=== PATIENT | female | born 1950 | race Caucasian/White ===

== ENCOUNTER 2016-06-12 14:51 | Inpatient (IN) | payer MEDICARE, OTHER ==
--- NOTE | 2016-06-12 15:22 | ED ---
General Adult HPI - General Chief complaint: Shortness of Breath Stated complaint: BLANK Time Seen by Provider: 06/12/16 14:53 Source: patient, EMS, RN notes reviewed, old records reviewed Mode of arrival: EMS - History of Present Illness Initial comments: This is a 65-year-old female ER for evaluation. Patient comes in here for evaluation of shortness of breath, patient is a gainfully short of breath and doesn't with multiple medical comorbidities, coming approximately care facility for essentially failed outpatient treatment of multiple infections. On top of these infections patient does have significant difficulties with breathing including CHF COPD, patient states she has shortness of breath at this time - Related Data Home Medications Medication Instructions Recorded Confirmed Ascorbic Acid [Vitamin C] 1,000 mg PO DAILY@1200 10/22/13 06/12/16 Aspirin 81 mg PO 10/22/13 06/12/16 Baclofen [Lioresal] 10 mg PO BID 10/22/13 06/12/16 Budesonide-Formot 160-4.5 Mcg 2 puff INHALATION RT-BID 10/22/13 06/12/16 [Symbicort 160-4.5 Mcg Inhaler] Celecoxib [CeleBREX] 200 mg PO QAM 10/22/13 06/12/16 Cetirizine HCl [Zyrtec] 10 mg PO QAM 10/22/13 06/12/16 Furosemide [Lasix] 40 mg PO BID 10/22/13 06/12/16 Montelukast Sodium [Singulair] 10 mg PO QAM 10/22/13 06/12/16 Omeprazole [PriLOSEC] 20 mg PO 10/22/13 06/12/16 Spironolactone [Aldactone] 25 mg PO BID 10/22/13 06/12/16 Cyanocobalamin [Vitamin B-12] 1,000 mcg PO Q48H 10/18/15 06/12/16 Ergocalciferol [Vitamin D2 50,000 unit PO FR 10/18/15 06/12/16 (DRISDOL)] Ferrous Sulfate, Dried [Slow 159 mg PO DAILY@1200 10/18/15 06/12/16 Release Iron] Sennosides [Senna] 17.2 mg PO BID 10/18/15 06/12/16 Albuterol Inhaler [Ventolin Hfa 2 puff INHALATION RT-QID PRN 06/12/16 06/12/16 Inhaler] Aztreonam [Azactam] 1 dose IVPB Q8H 06/12/16 06/12/16 Citalopram Hydrobromide [CeleXA] 10 mg PO QAM 06/12/16 06/12/16 HYDROcodone/APAP 5-325MG [Varnell 1 tab PO Q8H PRN 06/12/16 06/12/16 5-325] metFORMIN HCL [Glucophage] 2,000 mg PO DAILY@199906/12/16 06/12/16 predniSONE 20 mg PO DAILY 06/12/16 06/12/16 Previous Rx's Medication Instructions Recorded Gabapentin [Neurontin] 300 mg PO BID cap 10/27/15 Ipratropium-Albuterol Nebulize 3 ml INHALATION RT-QID ampul.neb 10/27/15 [Duoneb 0.5 mg-3 mg/3 ml Soln] Allergies Allergy/AdvReac Type Severity Reaction Status Date / Time acyclovir Allergy Rash/Hives Verified 06/12/16 16:06 cephalexin [Cephalexin] Allergy Anaphylaxis Verified 06/12/16 16:06 cephalexin monohydrate Allergy Anaphylaxis Verified 06/12/16 16:06 [From Keflex] Cephalosporins Allergy Unknown Verified 06/12/16 15:13 erythromycin base Allergy Unknown Verified 06/12/16 15:13 famciclovir Allergy Rash/Hives Verified 06/12/16 16:06 meropenem [From Merrem] Allergy Anaphylaxis Verified 06/12/16 16:06 nitrofurantoin Allergy Unknown Verified 06/12/16 15:13 [From Macrobid] nitrofurantoin Allergy Unknown Verified 06/12/16 15:13 macrocrystalline [From Macrobid] sulfamethoxazole Allergy Unknown Verified 06/12/16 15:13 [From Bactrim] trimethoprim [From Bactrim] Allergy Unknown Verified 06/12/16 15:13 Review of Systems ROS Statement: Those systems with pertinent positive or pertinent negative responses have been documented in the HPI. ROS Other: All systems not noted in ROS Statement are negative. Past Medical History Past Medical History: Asthma, COPD, Diabetes Mellitus, Fibromyalgia, GERD/Reflux , Hyperlipidemia, Hypertension, Osteoarthritis (OA), Pneumonia Additional Past Medical History / Comment(s): IDC, FREQ UTI. anemia; osteopenia ; parapalegic "R/T SPINAL SURG 2006, AND AMBULANCE INJURY LATER" History of Any Multi-Drug Resistant Organisms: ESBL Date of last positivie culture/infection: 10/18/15 MDRO Source:: Urine-E.coli ESBL Past Surgical History: Adenoidectomy, Back Surgery, Joint Replacement, Orthopedic Surgery, Tonsillectomy Additional Past Surgical History / Comment(s): Neck surgery, ZAY KNEE REPLACEMENT, FUSION T-12 TO L-5 METAL REMOVED, L5 TO S1 - AND REFUSED,KNEE ARTHROSCOPY X3. RT FOOT METATRSAL BROKEN, BIOPSY ON ZAY BREAST-NEG, ZAY CARPAL TUNNEL, LT HAND BASAL. ARTHROSOCPY,UMBILICAL HERNIA, SANTANA 09/2012; LAPROSCOPY,CATARACTS. Past Anesthesia/Blood Transfusion Reactions: Family History of Problems w/ Anesthesia, Postoperative Nausea & Vomiting (PONV) Additional Past Anesthesia/Blood Transfusion Reaction / Comment(s): HAD BLOOD TRANSFUSION IN PAST. SISTER HAD PROB BREATHING AFTER SURG. Past Psychological History: Depression Additional Psychological History / Comment(s): Lives in the family home. She has a visiting physician. Has family members that help her. She is on a bariatric air bed at home. She has a Santana in place and this is her only IV access placements Dr. Dee placement about 2 years ago. Smoking Status: Never smoker Past Alcohol Use History: None Reported Past Drug Use History: None Reported - Past Family History Father Family Medical History: Cancer Additional Family Medical History / Comment(s): LUNG CA - BOTH PARENTS Mother Family Medical History: Cancer General Exam General appearance: alert, anxious, in distress, obese Head exam: Present: atraumatic, normocephalic, normal inspection Eye exam: Present: normal appearance, PERRL, EOMI. Absent: scleral icterus, conjunctival injection, periorbital swelling ENT exam: Present: mucous membranes dry Neck exam: Present: normal inspection. Absent: tenderness, meningismus, lymphadenopathy Respiratory exam: Present: normal lung sounds bilaterally, respiratory distress , wheezes, rales, accessory muscle use, decreased breath sounds, prolonged expiratory. Absent: rhonchi, stridor Cardiovascular Exam: Present: normal rhythm, tachycardia, normal heart sounds. Absent: systolic murmur, diastolic murmur, rubs, gallop, clicks GI/Abdominal exam: Present: soft, normal bowel sounds. Absent: distended, tenderness, guarding, rebound, rigid Extremities exam: Present: normal inspection, full ROM, normal capillary refill. Absent: tenderness, pedal edema, joint swelling, calf tenderness Back exam: Present: normal inspection Neurological exam: Present: alert, oriented X3, CN II-XII intact Psychiatric exam: Present: normal affect, normal mood Skin exam: Present: warm, dry, intact, normal color. Absent: rash Course Vital Signs 06/12/16 06/12/16 06/12/16 14:53 15:03 15:09 Temperature 99.8 F H Pulse Rate 61 142 H Respiratory 20 20 20 Rate Blood Pressure 159/109 211/155 O2 Sat by Pulse 96 95 Oximetry 06/12/16 16:19 Temperature 99.4 F Pulse Rate 138 H Respiratory 20 Rate Blood Pressure 168/71 O2 Sat by Pulse 92 L Oximetry - Reevaluation(s) Reevaluation #1: 06/12/16 16:47 Patient is in mild distress, mild to moderate shortness of breath even after breathing treatment. Reevaluation #2: 06/12/16 16:48 Records thoroughly reviewed EKG Findings - EKG Comments: EKG Findings:: EKG shows sinus tachycardia rate 142, NC 136, QRS 74, QTC 4:15 Medical Decision Making - Medical Decision Making 65 female year with multifactorial shortness of breath and respiratory failure, COPD CHF obesity hypoventilation syndrome as well as pneumonia. Patient be admitted for IV antibiotics, breathing treatments and cardiopulmonary resuscitation as well as hemodynamic monitoring. - Lab Data Result diagrams: 06/12/16 15:30 06/12/16 15:30 Lab Results 06/12/16 06/12/16 06/12/16 Range/Units 15:30 15:30 15:30 WBC 24.7 H (3.8-10.6) k/uL RBC 4.09 (3.80-5.40) m/uL Hgb 12.2 (11.4-16.0) gm/dL Hct 39.1 (34.0-46.0) % MCV 95.6 (80.0-100.0) fL MCH 29.7 (25.0-35.0) pg MCHC 31.1 (31.0-37.0) g/dL RDW 15.7 H (11.5-15.5) % Plt Count 363 (150-450) k/uL Neutrophils % 93 % Lymphocytes % 3 % Monocytes % 3 % Eosinophils % 0 % Basophils % 0 % Neutrophils # 23.0 H (1.3-7.7) k/uL Lymphocytes # 0.7 L (1.0-4.8) k/uL Monocytes # 0.8 (0-1.0) k/uL Eosinophils # 0.0 (0-0.7) k/uL Basophils # 0.0 (0-0.2) k/uL PT (9.0-12.0) sec INR (<1.1) APTT (22.0-30.0) sec Sodium 141 (137-145) mmol/L Potassium 4.7 (3.5-5.1) mmol/L Chloride 98 (98-107) mmol/L Carbon Dioxide 30 (22-30) mmol/L Anion Gap 13 mmol/L BUN 31 H (7-17) mg/dL Creatinine 0.80 (0.52-1.04) mg/dL Est GFR (MDRD) Af Amer >60 (>60 ml/min/1.73 sqM) Est GFR (MDRD) Non-Af >60 (>60 ml/min/1.73 sqM) Glucose 160 H (74-99) mg/dL Calcium 9.7 (8.4-10.2) mg/dL Magnesium 2.1 (1.6-2.3) mg/dL Total Bilirubin 0.5 (0.2-1.3) mg/dL AST 75 H (14-36) U/L ALT 127 H (9-52) U/L Alkaline Phosphatase 125 (38-126) U/L Total Creatine Kinase 30 (30-135) U/L Total Protein 7.4 (6.3-8.2) g/dL Albumin 4.2 (3.5-5.0) g/dL 06/12/16 Range/Units 15:30 WBC (3.8-10.6) k/uL RBC (3.80-5.40) m/uL Hgb (11.4-16.0) gm/dL Hct (34.0-46.0) % MCV (80.0-100.0) fL MCH (25.0-35.0) pg MCHC (31.0-37.0) g/dL RDW (11.5-15.5) % Plt Count (150-450) k/uL Neutrophils % % Lymphocytes % % Monocytes % % Eosinophils % % Basophils % % Neutrophils # (1.3-7.7) k/uL Lymphocytes # (1.0-4.8) k/uL Monocytes # (0-1.0) k/uL Eosinophils # (0-0.7) k/uL Basophils # (0-0.2) k/uL PT 10.9 (9.0-12.0) sec INR 1.1 (<1.1) APTT 23.0 (22.0-30.0) sec Sodium (137-145) mmol/L Potassium (3.5-5.1) mmol/L Chloride (98-107) mmol/L Carbon Dioxide (22-30) mmol/L Anion Gap mmol/L BUN (7-17) mg/dL Creatinine (0.52-1.04) mg/dL Est GFR (MDRD) Af Amer (>60 ml/min/1.73 sqM) Est GFR (MDRD) Non-Af (>60 ml/min/1.73 sqM) Glucose (74-99) mg/dL Calcium (8.4-10.2) mg/dL Magnesium (1.6-2.3) mg/dL Total Bilirubin (0.2-1.3) mg/dL AST (14-36) U/L ALT (9-52) U/L Alkaline Phosphatase (38-126) U/L Total Creatine Kinase (30-135) U/L Total Protein (6.3-8.2) g/dL Albumin (3.5-5.0) g/dL - Radiology Data Radiology results: report reviewed (Chest x-ray shows bop positive bilateral pneumonia), image reviewed Critical Care Time Critical Care Time: Yes Total Critical Care Time: 31 Disposition Clinical Impression: Urinary tract infection, Acute respiratory failure, CHF (congestive heart failure), Acute exacerbation of chronic obstructive airways disease, Bilateral pneumonia Disposition: ADMITTED IP TO THIS [facility] Condition: Serious Referrals: Raymond Andrade MD [Primary Care Provider] - 1-2 days
[2016-06-12] MEDS ORDERED: SODIUM CHLORIDE 0.9% 1,000 ML IV STA ×2 (15:31→16:16)
--- NOTE | 2016-06-12 16:01 | XR ---
EXAMINATION TYPE: XR chest 1V portable DATE OF EXAM: 06/12/2016 3:55 PM COMPARISON: Prior chest x-ray 27 October 2015 HISTORY: Shortness of breath and asthma TECHNIQUE: Single frontal view of the chest is obtained. FINDINGS: No significant interval change. Postop change noted at the lower cervical spine. Patient i s rotated and there are overlying cardiac leads. Heart is enlarged, mediastinum is widened. Right jug ular central venous catheter shows the distal tip overlying the superior vena cava. Difficult to excl ude some basilar airspace disease. No evident pneumothorax, or pleural effusion. IMPRESSION: Correlate for possible basilar pneumonia or atelectasis, follow-up PA and lateral chest x-ray may be of benefit. Cardiomegaly. Difficult to exclude mediastinal adenopathy.
[2016-06-12 16:25] LABS: Basophils % (A) 0 %; CH 30.2; CHCM 31.7; Eosinophils % (A) 0 %; HCT 39.1 % (34.0-46.0); HGB 12.2 gm/dL (11.4-16.0); Luc # (Auto) 0.18; Luc % (Auto) 1; Lymphocytes # (A) 0.7 k/uL (1.0-4.8); Lymphocytes % (A) 3 %; MCH 29.7 pg (25.0-35.0); MCHC 31.1 g/dL (31.0-37.0); MCV 95.6 fL (80.0-100.0); Monocytes # (A) 0.8 k/uL (0-1.0); Monocytes % (A) 3 %; Neutrophils % (A) 93 %; RBC 4.09 m/uL (3.80-5.40); RDW 15.7 % (11.5-15.5); WBC 24.7 k/uL (3.8-10.6); WBC (Perox) 25.16
[2016-06-12] MEDS ORDERED: LORazepam 2 MG/ML SYRINGE IV STA (16:28)
[2016-06-12] MEDS ORDERED: IPRATROPIUM-ALBUTEROL 3 ML NEB INHALATION STA (16:28)
[2016-06-12 16:29] LABS: INR 1.1 (<1.1); Prothrombin Time 10.9 sec (9.0-12.0)
[2016-06-12 16:36] LABS: ALT 127 U/L (9-52); AST 75 U/L (14-36); Alkaline Phosphatase 125 U/L (38-126); Anion Gap 13 mmol/L; Blood Urea Nitrogen 31 mg/dL (7-17); Calcium 9.7 mg/dL (8.4-10.2); Carbon Dioxide 30 mmol/L (22-30); Chloride 98 mmol/L (98-107); Glucose 160 mg/dL (74-99); Magnesium 2.1 mg/dL (1.6-2.3); Non-African American GFR(MDRD) >60 (>60 ml/min/1.73 sqM); Potassium 4.7 mmol/L (3.5-5.1); Sodium 141 mmol/L (137-145); Total Bilirubin 0.5 mg/dL (0.2-1.3); Total Protein 7.4 g/dL (6.3-8.2)
[2016-06-12 16:40] LABS: Creatine Kinase 30 U/L (30-135)
[2016-06-12] MEDS ORDERED: PIPERACILLIN-TAZOBACTAM 3.375 GM in DEXTROSE/WATER 1 50ML.BAG IVPB STA (16:44)
[2016-06-12] MEDS ORDERED: SODIUM CHLORIDE 0.9% 1,000 ML IV SCH (16:45)
[2016-06-12] MEDS ORDERED: PNEUMONIA PROTOCOL UTILIZED 1 EACH MISC PO PRN (16:45)
[2016-06-12] MEDS ORDERED: LEVOFLOXACIN 750MG-D5W PMX 750 MG in DEXTROSE/WATER 1 150ML.BAG IVPB STA (16:45)
[2016-06-12 16:53] LABS: Creatine Kinase MB 0.7 ng/mL (0.0-2.4); Troponin I <0.012 ng/mL (0.000-0.034)
[2016-06-12] MEDS ORDERED: KETOROLAC 30 MG/ML 1 ML VIAL IVP STA (17:14)
[2016-06-12] MEDS ORDERED: ACETAMINOPHEN IV (For NPO) 1,000 MG in EMPTY BAG 1 BAG IVPB STA (17:14)
[2016-06-12] MEDS ORDERED: SODIUM CHLORIDE 0.9% 1,000 ML IV ONE (17:18)
[2016-06-12 19:39] LABS: Amorphous Sediment,Urine Rare /hpf; Appearance,Urine Cloudy (Clear); Bilirubin,Urine Negative (Negative); Glucose,Urine (UA) Negative (Negative); Ketones,Urine Negative (Negative); Leukocyte Esterase,Urine Large (Negative); Mucus,Urine Few /hpf; Nitrite,Urine Negative (Negative); Particle Count 15502; Protein,Urine Negative (Negative); RBC,Urine 81 /hpf (0-5); Squamous Epithelial Cell,Urine 1 /hpf (0-4); UA Billing (MACRO vs. MICRO) MICRO; Urobilinogen,Urine <2.0 mg/dL (<2.0); WBC,Urine 84 /hpf (0-5)
[2016-06-12] MEDS: IPRATROPIUM-ALBUTEROL 3 ML NEB INHALATION SCH (19:44)
[2016-06-12] MEDS: FUROSEMIDE 10 MG/ML 4 ML VIAL IV STA ×2 (20:20→21:05)
[2016-06-12 20:47] LABS: Glucose,Whole Blood 144 mg/dL (75-99)
[2016-06-12] MEDS ORDERED: NALOXONE 0.4 MG/ML 1 ML VIAL IV PRN (22:45)
[2016-06-12] MEDS ORDERED: IV VANCOMYCIN PER PHARMACY 1 EACH MISC MISCELLANE PRN (22:51)
[2016-06-12] MEDS ORDERED: ACETAMINOPHEN IV (For NPO) 1,000 MG in EMPTY BAG 1 BAG IVPB ONE (23:29)
[2016-06-13] MEDS: PIPERACILLIN-TAZOBACTAM 3.375 GM in DEXTROSE/WATER 1 50ML.BAG IVPB SCH ×3 (03:04→19:35)
[2016-06-13 04:38] LABS: Basophils # (A) 0.1 k/uL (0-0.2); Basophils % (A) 0 %; CH 30.1; CHCM 30.5; Eosinophils % (A) 0 %; HCT 33.3 % (34.0-46.0); HDW 2.46; HGB 10.4 gm/dL (11.4-16.0); Hypochromasia Moderate; Luc # (Auto) 0.16; Luc % (Auto) 1; Lymphocytes % (A) 9 %; MCH 30.8 pg (25.0-35.0); MCHC 31.1 g/dL (31.0-37.0); MCV 99.2 fL (80.0-100.0); Macrocytosis Slight; Mean Platelet Volume 7.4; Monocytes # (A) 0.7 k/uL (0-1.0); Monocytes % (A) 3 %; Neutrophils # (A) 19.4 k/uL (1.3-7.7); Neutrophils % (A) 87 %; RBC 3.36 m/uL (3.80-5.40); RDW 15.7 % (11.5-15.5); WBC 22.3 k/uL (3.8-10.6); WBC (Perox) 23.36
[2016-06-13 04:56] LABS: Anion Gap 12 mmol/L; Blood Urea Nitrogen 38 mg/dL (7-17); Calcium 8.5 mg/dL (8.4-10.2); Carbon Dioxide 28 mmol/L (22-30); Chloride 99 mmol/L (98-107); Glucose 120 mg/dL (74-99); Magnesium 2.3 mg/dL (1.6-2.3); Non-African American GFR(MDRD) 56 (>60 ml/min/1.73 sqM); Phosphorous 3.9 mg/dL (2.5-4.5); Potassium 4.5 mmol/L (3.5-5.1); Sodium 139 mmol/L (137-145)
[2016-06-13] MEDS: ALPRAZolam 0.25 MG TAB PO PRN ×3 (06:38→22:59)
[2016-06-13 07:25] LABS: Glucose,Whole Blood 108 mg/dL (75-99)
--- NOTE | 2016-06-13 07:27 | HP ---
DATE OF ADMISSION: 06/12/2016 PRESENTING COMPLAINT: Short of breath, wheezing. HISTORY OF PRESENTING COMPLAINT: This is a 65-year-old patient of visiting physician, Dr. Andrade. The patient's chronic stable medical conditions include diabetes mellitus type 2, fibromyalgia, GERD, hyperlipidemia, hypertension, osteoarthritis, pneumonia. Patient has a chronic indwelling, osteopenia. Patient had spinal surgery in 2006 and subsequently had paraplegia. Patient presents with over a week of increasing short of breath, cough, nonproductive, congestion in the chest. Patient was given prednisone and aztreonam by her visiting physician, did not get better and then decided to come in. Also had ( ) fever, weak, tired, decreased appetite. REVIEW OF SYSTEMS: CONSTITUTIONAL: Weak tired. HEENT: None. RESPIRATORY: As above. CARDIOVASCULAR: None. GASTROINTESTINAL: Heartburn. GENITOURINARY: Chronic Stallings catheter. DERMATOLOGICAL: None. HEMATOLOGICAL: None. LYMPHATIC: None. PSYCHIATRY: None. NEUROLOGICAL: Paraplegia. Past medical history of asthma, diabetes mellitus type 2, fibromyalgia, GERD, hyperlipidemia, hypertension, osteoarthritis, indwelling catheter, osteopenia, paraplegia following spinal surgery. PAST SURGICAL HISTORY: Adenoidectomy, back surgery, joint replacement, tonsillectomy, neck surgery, bilateral knee replacement, fusion T12 to L5 and L5 to S1, right foot metatarsal broke, bilateral carpal tunnel surgery, left hand basal arthroscopy, umbilical hernia repair. SOCIAL HISTORY: The patient lives by herself. She has help that comes in daily. No smoking or alcohol. FAMILY HISTORY: Both the parents had lung cancer. HOME MEDICATIONS: 1. Azactam 2 grams IV piggyback q.8. 2. Prednisone 20 mg a day. 3. Ventolin 2 puffs q.i.d. p.r.n. 4. DuoNeb q.i.d. 5. Ferrous sulfate. 6. Celebrex 200 mg p.o. daily. 7. Symbicort 160/4.5 two puffs b.i.d. 8. Aldactone 25 mg b.i.d. 9. Senna 17.2 mg p.o. b.i.d. 10. Lasix 40 mg b.i.d. 11. Vitamin D2, 50,000 units on Fridays. 12. Aspirin 81 mg p.o. q.h.s. 13. [place] 5 one tablet q.8 p.r.n. 14. Baclofen 10 mg p.o. b.i.d. 15. Vitamin C 1000 mg p.o. daily. 16. Prilosec 20 mg p.o. q.h.s. 17. Vitamin B12, 1000 mcg p.o. q.48 hours. 18. Zyrtec 10 mg p.o. in the morning. 19. Singulair 10 mg p.o. daily. 20. Celexa 10 mg p.o. daily. 21. Glucophage 2000 mg p.o. daily at 8 p.m. 22. Neurontin 300 mg p.o. b.i.d. Allergies include acyclovir KEFLEX, CEPHALOSPORIN, ERYTHROMYCIN, MEROPENEM, NITROFURANTOIN, BACTRIM. ON EXAMINATION: VITAL SIGNS ON PRESENTATION: Temperature 99.8, pulse up to 142, respiration 20, blood pressure 168/71, pulse ox 92% on 2 L. GENERAL APPEARANCE: Morbidly obese, BMI 61.3, sitting up, short of breath. EYES: Pupils equal. Conjunctivae normal. HEENT: External appearance of nose and ears normal. Oral cavity normal. NECK: Short thick. JVD unable to assess. RESPIRATORY: Effort increased. LUNGS: Expiratory crackles. CARDIOVASCULAR: First and second sounds normal. No edema. ABDOMEN: Distended, soft. Liver and spleen not palpable. LYMPHATIC: No lymph node palpable in neck or axillae. PSYCHIATRY: Alert and oriented x3. Mood and affect normal. NEUROLOGICAL: Pupils equal. Cranial nerves grossly intact. ( ) lower extremities. INVESTIGATIONS: White count 24.7, hemoglobin 12.2. Potassium 4.7. UA positive for leukocyte esterase, WBC. Chest x-ray possibly pneumonia. ASSESSMENT: 1. Bilateral basal pneumonia, suspect gram-negative organism having failed outpatient treatment. 2. Morbid obesity, body mass index 61.3. 3. Paraplegia from failed spinal surgery 4. Diabetes mellitus type 2, on oral hypoglycemics. 5. Chronic fibromyalgia. 6. Gastroesophageal reflux disease. 7. Hyperlipidemia. 8. Essential hypertension. 9. Primary osteoarthritis multiple joints bilateral. 10. Chronic urinary incontinence. The patient has got a chronic Stallings catheter. 11. Stallings catheter causing urinary tract infection PLAN: Patient to continue Levaquin and Zosyn. Home medications are resumed. Consultations to ID and Pulmonary is being done. Care was discussed with the patient.
[2016-06-13] MEDS: IPRATROPIUM-ALBUTEROL 3 ML NEB INHALATION SCH ×4 (08:45→19:11)
[2016-06-13] MEDS: PANTOPRAZOLE 40 MG TABLET PO SCH (09:00)
--- NOTE | 2016-06-13 09:08 | XR ---
EXAMINATION TYPE: XR chest 1V DATE OF EXAM: 06/13/2016 6:35 AM COMPARISON: 06/12/2016 HISTORY: Shortness of breath TECHNIQUE: Single frontal view of the chest is obtained. FINDINGS: Right-sided central venous catheter seen. Heart is enlarged and there is bilateral areas o f infiltrate and small effusion. Pleural-based thickening stable. IMPRESSION: 1. Basilar infiltrate and small effusion are stable.
[2016-06-13] MEDS: ENOXAPARIN 40 MG/0.4 ML SYRINGE SQ SCH (10:30)
--- NOTE | 2016-06-13 12:15 | P.CONS ---
History of Present Illness - Reason for Consult Consult date: 06/13/16 Pneumonia - History of Present Illness This is a 65-year-old female who is known to ID services as she was seen in October 2013 and was treated for ESBL E. coli urinary tract infection patient is noted to have multiple ALLERGIES including meropenem the causes an anaphylactic reaction as well as Keflex. She was also seen during hospitalization in October 2015 and was treated for urinary tract infection with ESBL E. coli and enterococcus as well as varicella-zoster. Patient states that she has not been feeling well for a while and has been on IV Azactam at home for 11 days that was ordered by her primary care physician Dr. santiago her off for urinary tract infection and upper respiratory infection. She states that has not helped at all. She states she has had shortness of breath for 2-3 weeks and just continues to worsen. She feels like her right bronchial tube is contracted. She has a cough that started yesterday and tightness in her chest. She gives history of having asthma in the past and has a nebulizer without any improvement with use. Over the weekend she noticed blood in her urine as well as burning but patient does have a chronic Stallings catheter in place which she states was just changed Sunday of last week. She states that yesterday she was feeling cold and chilled. She denies any nausea vomiting and she is constipated which is chronic. For the past week she' s had decreased food and liquid intake. She came into [facility] emergency center with the above concerns. White count was noted to be 24.7 and repeat 22.3. AST of 75 and ALT 127, alkaline phosphatase 125. Urinalysis was cloudy, blood moderate, leukoesterase large, RBCs 81, WBCs 84, yeast budding many, culture is in process. Patient also has 2 blood cultures obtained from her Garza are showing gram-positive cocci. Her chest x-ray showed possible basilar pneumonia or atelectasis. She was diagnosed with urinary tract infection and exacerbation of COPD and bilateral pneumonia and admitted to the selective care unit. She then became hypotensive and pulse ox was low on BiPAP and she was transferred to the intensive care unit. She is status post fluid bolus and has not required vasopressors. She is followed by Dr. Pizarro for intensive care and pulmonary medicine. Sputum culture is on collected. Patient also complains of a rash to her left dorsal hand which she thinks is due to latex close which she uses to flush her Garza. She states she also has this on her right hand from time to time. She denies having any decubitus ulcers. Patient is currently living at home and she does have nurse aides through the day. She has a hospital bed with air mattress and trapeze, Summer lift, electric wheelchair, BiPAP, nebulizer and home oxygen at 2 L. Patient is a functional quadriplegic. Review of Systems All systems: negative Constitutional: Reports anorexia, Reports chills, Reports fatigue, Reports lethargy, Reports poor appetite, Reports weakness, Denies fever Eyes: denies blurred vision, denies pain Ears, nose, mouth and throat: Denies dental pain, Denies headache, Denies mouth pain, Denies sore throat Cardiovascular: Reports shortness of breath, Denies chest pain, Denies lightheadedness, Denies syncope Respiratory: Reports cough, Reports dyspnea, Reports home oxygen, Reports wheezing, Denies hemoptysis Gastrointestinal: Reports constipation, Reports loss of appetite, Denies abdominal pain, Denies diarrhea, Denies nausea, Denies vomiting Genitourinary: Reports hematuria, Denies dysuria Musculoskeletal: Denies myalgias Integumentary: Denies pruritus, Denies rash Neurological: Denies numbness, Denies weakness Psychiatric: Denies anxiety, Denies depression Endocrine: Denies fatigue, Denies weight change Past Medical History Past Medical History: Asthma, COPD, Diabetes Mellitus, Fibromyalgia, GERD/Reflux , Hyperlipidemia, Hypertension, Osteoarthritis (OA), Pneumonia, Sleep Apnea/CPAP /BIPAP Additional Past Medical History / Comment(s): IDC, FREQ UTI. anemia; osteopenia ; parapalegic "R/T SPINAL SURG 2006, AND AMBULANCE INJURY LATER", obstructive sleep apnea, chronic Stallings catheter, shingles History of Any Multi-Drug Resistant Organisms: ESBL Year Discovered:: 10/18/15 MDRO Source:: Urine-E.coli ESBL Past Surgical History: Adenoidectomy, Back Surgery, Joint Replacement, Orthopedic Surgery, Tonsillectomy Additional Past Surgical History / Comment(s): Neck surgery, ZAY KNEE REPLACEMENT, FUSION T-12 TO L-5 METAL REMOVED, L5 TO S1 - AND REFUSED,KNEE ARTHROSCOPY X3. RT FOOT METATRSAL BROKEN, BIOPSY ON ZAY BREAST-NEG, ZAY CARPAL TUNNEL, LT HAND BASAL. ARTHROSOCPY,UMBILICAL HERNIA, GARZA 09/2012; LAPROSCOPY, B CATARACTS. Past Anesthesia/Blood Transfusion Reactions: Family History of Problems w/ Anesthesia, Postoperative Nausea & Vomiting (PONV) Additional Past Anesthesia/Blood Transfusion Reaction / Comm: HAD BLOOD TRANSFUSION IN PAST. SISTER HAD PROB BREATHING AFTER SURG. Past Psychological History: Depression Additional Psychological History / Comment(s): Lives in the family home. She has a visiting physician. Has family members that help her. She is on a bariatric air bed at home. She also has Summer lift, electric wheelchair, nebulizer, BiPAP and home oxygen at 2 L nasal cannula. Garza in place. Smoking Status: Former smoker Past Alcohol Use History: None Reported Past Drug Use History: None Reported - Past Family History Father Family Medical History: Cancer Additional Family Medical History / Comment(s): LUNG CA - BOTH PARENTS Mother Family Medical History: Cancer Medications and Allergies Home Medications Medication Instructions Recorded Confirmed Type Ascorbic Acid [Vitamin C] 1,000 mg PO DAILY@1200 10/22/13 06/12/16 History Aspirin 81 mg PO HS 10/22/13 06/12/16 History Baclofen [Lioresal] 10 mg PO BID 10/22/13 06/12/16 History Budesonide-Formot 160-4.5 Mcg 2 puff INHALATION RT-BID 10/22/13 06/12/16 History [Symbicort 160-4.5 Mcg Inhaler] Celecoxib [CeleBREX] 200 mg PO QAM 10/22/13 06/12/16 History Cetirizine HCl [Zyrtec] 10 mg PO QAM 10/22/13 06/12/16 History Furosemide [Lasix] 40 mg PO BID 10/22/13 06/12/16 History Montelukast Sodium [Singulair] 10 mg PO QAM 10/22/13 06/12/16 History Omeprazole [PriLOSEC] 20 mg PO HS 10/22/13 06/12/16 History Spironolactone [Aldactone] 25 mg PO BID 10/22/13 06/12/16 History Cyanocobalamin [Vitamin B-12] 1,000 mcg PO Q48H 10/18/15 06/12/16 History Ergocalciferol [Vitamin D2 50,000 unit PO FR 10/18/15 06/12/16 History (DRISDOL)] Ferrous Sulfate, Dried [Slow 159 mg PO DAILY@1200 10/18/15 06/12/16 History Release Iron] Sennosides [Senna] 17.2 mg PO BID 10/18/15 06/12/16 History Albuterol Inhaler [Ventolin Hfa 2 puff INHALATION RT-QID PRN 06/12/16 06/12/16 History Inhaler] Aztreonam [Azactam] 2 gm IVPB Q8H 06/12/16 06/12/16 History Citalopram Hydrobromide [CeleXA] 10 mg PO QAM 06/12/16 06/12/16 History HYDROcodone/APAP 5-325MG [[place] 1 tab PO Q8H PRN 06/12/16 06/12/16 History 5-325] metFORMIN HCL [Glucophage] 2,000 mg PO DAILY@199906/12/16 06/12/16 History predniSONE 20 mg PO DAILY 06/12/16 06/12/16 History Allergies Allergy/AdvReac Type Severity Reaction Status Date / Time acyclovir Allergy Rash/Hives Verified 06/12/16 16:06 cephalexin [Cephalexin] Allergy Anaphylaxis Verified 06/12/16 16:06 cephalexin monohydrate Allergy Anaphylaxis Verified 06/12/16 16:06 [From Keflex] Cephalosporins Allergy Unknown Verified 06/12/16 15:13 erythromycin base Allergy Unknown Verified 06/12/16 15:13 famciclovir Allergy Rash/Hives Verified 06/12/16 16:06 meropenem [From Merrem] Allergy Anaphylaxis Verified 06/12/16 16:06 nitrofurantoin Allergy Unknown Verified 06/12/16 15:13 [From Macrobid] nitrofurantoin Allergy Unknown Verified 06/12/16 15:13 macrocrystalline [From Macrobid] sulfamethoxazole Allergy Unknown Verified 06/12/16 15:13 [From Bactrim] trimethoprim [From Bactrim] Allergy Unknown Verified 06/12/16 15:13 Physical Exam Vitals: Vital Signs Temp Pulse Pulse Resp BP BP BP 06/13/16 11:33 99 06/13/16 11:17 95 06/13/16 10:00 95 19 108/63 06/13/16 09:00 103 H 19 123/51 06/13/16 08:56 101 H 06/13/16 08:46 96 06/13/16 08:00 99.0 F 101 H 19 140/65 06/13/16 07:00 89 23 154/56 06/13/16 06:30 92 17 140/62 06/13/16 06:00 90 30 H 140/62 06/13/16 05:00 85 27 H 145/68 06/13/16 04:00 97.6 F 85 15 151/66 06/13/16 03:00 86 19 137/71 06/13/16 02:30 86 23 117/65 06/13/16 02:00 82 25 H 117/60 06/13/16 01:30 88 25 H 121/66 06/13/16 01:00 88 12 110/66 06/13/16 00:30 90 21 122/63 06/13/16 00:00 99.3 F 93 29 H 137/56 06/12/16 23:59 93 30 H 137/56 06/12/16 23:30 99.3 F 96 27 H 131/61 06/12/16 23:00 95 12 127/62 06/12/16 22:30 104 H 26 H 110/51 06/12/16 22:00 107 H 19 122/58 06/12/16 21:30 107 H 23 111/56 06/12/16 21:09 109 H 28 H 110/67 06/12/16 20:20 99.7 F H 132 H 18 82/60 81/59 06/12/16 20:00 110 H 06/12/16 19:44 110 H 06/12/16 18:55 99.8 F H 120 H 22 112/59 06/12/16 18:09 135 H 18 131/61 06/12/16 17:03 142 H Pulse Ox 06/13/16 11:33 06/13/16 11:17 06/13/16 10:00 93 L 06/13/16 09:00 93 L 06/13/16 08:56 06/13/16 08:46 97 06/13/16 08:00 94 L 06/13/16 07:00 97 06/13/16 06:30 96 06/13/16 06:00 96 06/13/16 05:00 92 L 06/13/16 04:00 94 L 06/13/16 03:00 93 L 06/13/16 02:30 91 L 06/13/16 02:00 93 L 06/13/16 01:30 93 L 06/13/16 01:00 92 L 06/13/16 00:30 95 06/13/16 00:00 91 L 06/12/16 23:59 92 L 06/12/16 23:30 92 L 06/12/16 23:00 91 L 06/12/16 22:30 92 L 06/12/16 22:00 94 L 06/12/16 21:30 94 L 06/12/16 21:09 94 L 06/12/16 20:20 94 L 06/12/16 20:00 06/12/16 19:44 06/12/16 18:55 93 L 06/12/16 18:09 94 L 06/12/16 17:03 Intake and Output 06/12/16 06/13/16 06/13/16 22:59 06:59 14:59 Intake Total 646.0 60 Output Total 296 130 Balance 350.0 -70 Intake: IV 646.0 60 Piperacillin-Tazobactam 3 25.0 .375 gm In Dextrose/Water 1 50ml.bag @ 12.5 mls/hr IVPB Q8HR ANNE Rx#: [id number] Sodium Chloride 0.9% 1, 120 60 000 ml @ 20 mls/hr IV . Q24H STA Rx#:[id number] Vancomycin 2,000 mg In 501 Sodium Chloride 0.9% 500 ml @ 167 mls/hr IVPB Q24H ANNE Rx#:[id number] Output: Urine 296 130 Other: Voiding Method Indwelling Catheter Indwelling Catheter Weight 139.2 kg 139.2 kg Gen: This is a super morbid obese 65-year-old female an ICU bed appears to be comfortable and in no distress. HEENT: Head is atraumatic, normocephalic. Pupils equal, round. Sclerae is anicteric. Conjunctiva slightly pale. Oral mucous membranes slightly dry. No thrush noted. NECK: Short and thick. Supple. No JVD. No lymphadenopathy. No thyromegaly. LUNGS: Diminished at the bases with scattered rhonchi and crackles in the bases. No intercostal retractions. HEART: Regular rate and rhythm. No murmur. Right subclavian Garza catheter in place. ABDOMEN: Morbidly obese. Soft. Bowel sounds are present. No masses. No tenderness. Stallings catheter draining manny urine. EXTREMITIES: 1+ pedal edema bilateral. Dorsalis pedis 1+ bilaterally. NEUROLOGICAL: Patient is awake, alert and oriented x3. Extreme weakness noted to all 4 extremities. Results Results: Laboratory Results WBC 22.3 k/uL (3.8-10.6) H 06/13/16 04:16 RBC 3.36 m/uL (3.80-5.40) L 06/13/16 04:16 Hgb 10.4 gm/dL (11.4-16.0) L 06/13/16 04:16 Hct 33.3 % (34.0-46.0) L 06/13/16 04:16 MCV 99.2 fL (80.0-100.0) 06/13/16 04:16 MCH 30.8 pg (25.0-35.0) 06/13/16 04:16 MCHC 31.1 g/dL (31.0-37.0) 06/13/16 04:16 RDW 15.7 % (11.5-15.5) H 06/13/16 04:16 Plt Count 295 k/uL (150-450) 06/13/16 04:16 Neutrophils % 87 % 06/13/16 04:16 Lymphocytes % 9 % 06/13/16 04:16 Monocytes % 3 % 06/13/16 04:16 Eosinophils % 0 % 06/13/16 04:16 Basophils % 0 % 06/13/16 04:16 Neutrophils # 19.4 k/uL (1.3-7.7) H 06/13/16 04:16 Lymphocytes # 2.0 k/uL (1.0-4.8) 06/13/16 04:16 Monocytes # 0.7 k/uL (0-1.0) 06/13/16 04:16 Eosinophils # 0.0 k/uL (0-0.7) 06/13/16 04:16 Basophils # 0.1 k/uL (0-0.2) 06/13/16 04:16 Hypochromasia Moderate 06/13/16 04:16 Macrocytosis Slight 06/13/16 04:16 PT 10.9 sec (9.0-12.0) 06/12/16 15:30 INR 1.1 (<1.1) 06/12/16 15:30 APTT 23.0 sec (22.0-30.0) 06/12/16 15:30 Sodium 139 mmol/L (137-145) 06/13/16 04:16 Potassium 4.5 mmol/L (3.5-5.1) 06/13/16 04:16 Chloride 99 mmol/L (98-107) 06/13/16 04:16 Carbon Dioxide 28 mmol/L (22-30) 06/13/16 04:16 Anion Gap 12 mmol/L 06/13/16 04:16 BUN 38 mg/dL (7-17) H 06/13/16 04:16 Creatinine 1.00 mg/dL (0.52-1.04) 06/13/16 04:16 Est GFR (MDRD) Af Amer >60 (>60 ml/min/1.73 sqM) 06/13/16 04:16 Est GFR (MDRD) Non-Af 56 (>60 ml/min/1.73 sqM) 06/13/16 04:16 Glucose 120 mg/dL (74-99) H 06/13/16 04:16 POC Glucose (mg/dL) 108 mg/dL (75-99) H 06/13/16 07:23 POC Glu Editorial Specialist ID 06/13/16 07:23 Plasma Lactic Acid Kvng 2.0 mmol/L (0.7-2.0) 06/12/16 18:12 Calcium 8.5 mg/dL (8.4-10.2) 06/13/16 04:16 Phosphorus 3.9 mg/dL (2.5-4.5) 06/13/16 04:16 Magnesium 2.3 mg/dL (1.6-2.3) 06/13/16 04:16 Total Bilirubin 0.5 mg/dL (0.2-1.3) 06/12/16 15:30 AST 75 U/L (14-36) H 06/12/16 15:30 ALT 127 U/L (9-52) H 06/12/16 15:30 Alkaline Phosphatase 125 U/L (38-126) 06/12/16 15:30 Total Creatine Kinase 30 U/L (30-135) 06/12/16 15:30 CK-MB (CK-2) 0.7 ng/mL (0.0-2.4) 06/12/16 15:30 CK-MB (CK-2) Rel Index 2.3 06/12/16 15:30 Troponin I <0.012 ng/mL (0.000-0.034) 06/12/16 15:30 NT-Pro-B Natriuret Pep 198 pg/mL 06/12/16 15:30 Total Protein 7.4 g/dL (6.3-8.2) 06/12/16 15:30 Albumin 4.2 g/dL (3.5-5.0) 06/12/16 15:30 TSH 1.540 mIU/L (0.465-4.680) 06/12/16 15:30 Urine Color Yellow 06/12/16 19:20 Urine Appearance Cloudy (Clear) H 06/12/16 19:20 Urine pH 5.0 (5.0-8.0) 06/12/16 19:20 Ur Specific [place] 1.010 (1.001-1.035) 06/12/16 19:20 Urine Protein Negative (Negative) 06/12/16 19:20 Urine Glucose (UA) Negative (Negative) 06/12/16 19:20 Urine Ketones Negative (Negative) 06/12/16 19:20 Urine Blood Moderate (Negative) H 06/12/16 19:20 Urine Nitrate Negative (Negative) 06/12/16 19:20 Urine Bilirubin Negative (Negative) 06/12/16 19:20 Urine Urobilinogen <2.0 mg/dL (<2.0) 06/12/16 19:20 Ur Leukocyte Esterase Large (Negative) H 06/12/16 19:20 Urine RBC 81 /hpf (0-5) H 06/12/16 19:20 Urine WBC 84 /hpf (0-5) H 06/12/16 19:20 Ur Squamous Epith Cells 1 /hpf (0-4) 06/12/16 19:20 Amorphous Sediment Rare /hpf (None) H 06/12/16 19:20 Hyaline Casts 29 /lpf (0-2) H 06/12/16 19:20 Urine Mucus Few /hpf (None) H 06/12/16 19:20 Urine Yeast (Budding) Many /hpf (None) H 06/12/16 19:20 CBC & Chem 7: 06/13/16 04:16 06/13/16 04:16 Labs: Abnormal Lab Results - Last 24 Hours (Table) 06/12/16 06/12/16 06/13/16 Range/Units 19:20 20:44 04:16 WBC 22.3 H (3.8-10.6) k/uL RBC 3.36 L (3.80-5.40) m/uL Hgb 10.4 L (11.4-16.0) gm/dL Hct 33.3 L (34.0-46.0) % RDW 15.7 H (11.5-15.5) % Neutrophils # 19.4 H (1.3-7.7) k/uL BUN (7-17) mg/dL Glucose (74-99) mg/dL POC Glucose (mg/dL) 144 H (75-99) mg/dL Urine Appearance Cloudy H (Clear) Urine Blood Moderate H (Negative) Ur Leukocyte Esterase Large H (Negative) Urine RBC 81 H (0-5) /hpf Urine WBC 84 H (0-5) /hpf Amorphous Sediment Rare H (None) /hpf Hyaline Casts 29 H (0-2) /lpf Urine Mucus Few H (None) /hpf Urine Yeast (Budding) Many H (None) /hpf 06/13/16 06/13/16 Range/Units 04:16 07:23 WBC (3.8-10.6) k/uL RBC (3.80-5.40) m/uL Hgb (11.4-16.0) gm/dL Hct (34.0-46.0) % RDW (11.5-15.5) % Neutrophils # (1.3-7.7) k/uL BUN 38 H (7-17) mg/dL Glucose 120 H (74-99) mg/dL POC Glucose (mg/dL) 108 H (75-99) mg/dL Urine Appearance (Clear) Urine Blood (Negative) Ur Leukocyte Esterase (Negative) Urine RBC (0-5) /hpf Urine WBC (0-5) /hpf Amorphous Sediment (None) /hpf Hyaline Casts (0-2) /lpf Urine Mucus (None) /hpf Urine Yeast (Budding) (None) /hpf Microbiology - Last 24 Hours (Table) 06/12/16 19:20 Urine Culture - Preliminary Urine,Catheterized Assessment and Plan Plan: This is a super morbid obese 65-year-old female presented to the hospital with shortness of breath with possible pneumonia and urinary tract infection with signs of sepsis and septic shock status post IV bolus not requiring vasopressors. She has been on Azactam for 11 days as an outpatient and failed outpatient treatment. Blood cultures are currently showing gram- positive cocci drawn from her Garza. We will ask for repeat with one from the Garza and one from a peripheral site. She is currently on IV antibiotics in form of Levaquin, Zosyn and vancomycin. These will be changed to meropenem and vancomycin. Noted that liver function tests are slightly elevated. She is followed by Dr. Steele. Continue supportive care. Further recommendations as patient progresses. The above dictated assessment and findings were discussed with Dr. Cannon. The impression and plan of care have been directed as dictated. Libia Malik nurse practitioner acting as scribe for Dr. Cannon. Time with Patient: Greater than 30
[2016-06-13 13:15] LABS: Glucose,Whole Blood 104 mg/dL (75-99)
--- NOTE | 2016-06-13 15:23 | P.CNPUL ---
History of Present Illness Consult date: 06/13/16 Requesting physician: Dony Rodriguez Reason for consult: other (Acute sepsis) Chief complaint: Shortness of breath History of present illness: This is a 65-year-old female with history of multiple medical problems including recurrent urinary tract infections secondary to ESBL E. coli, also secondary to enterococcus, and previous episodes of sepsis and respiratory failure secondary to urosepsis. Patient was recently treated by her primary care physician for what seemed to be a urinary tract infection and he was utilizing IV Azactam. Patient has been on 11 days of treatment for her UTI. In the meantime she was also complaining of significant upper respiratory symptoms. In spite of treatment, patient was not doing well. She continues to have increased shortness of breath, cough, wheezing, chest tightness, and she felt that her asthma was acting up on her, she was using her nebulizer treatment without much improvement. Few days prior to admission, patient noted blood in her urine. And her chronic Stallings catheter was changed recently. In addition to the other symptoms, patient has been complaining of weakness, decreased by mouth intake including food and liquids, patient then presented to the ER. With all these multiple complaints. In the ER, patient was noted to have a possible urinary tract infection based on her urinalysis, and her chest x -ray showed possibility of right lower lobe limited infiltrate. Patient was essentially admitted to the regular medical floor, and her lactic acid was 2.0. However while on the medical floor, her condition worsened, patient was noted to have more shortness of breath, she was also developing hypotensive episodes, knowing in fact that the patient received diuretics in the ER. Her initial chest x-ray clearly did not show congestive heart failure, but for some reason patient was receiving diuretics. At any rate when I was notified about this patient, I recommended transfer to the ICU, fluid boluses, broad-spectrum antibiotics including Levaquin and Zosyn and vancomycin, I also recommended norepinephrine to be started if the patient does not respond to fluid boluses. Overnight, the patient did quite well, and did not require intubation, did not require hemodynamic support with pressors. Her blood cultures today showed gram -positive cocci in chains, urine culture is in progress. CBC showed leukocytosis with WBC count of 22.3. Electrolytes were noted to be normal. BUN is 38 creatinine is 1.0. Her urinalysis showed evidence of hematuria, bacteriuria, and pyuria. Review of Systems 14 point review of systems were obtained, please refer to pertinent positives and negatives in HPI. Past Medical History Past Medical History: Asthma, COPD, Diabetes Mellitus, Fibromyalgia, GERD/Reflux , Hyperlipidemia, Hypertension, Osteoarthritis (OA), Pneumonia, Sleep Apnea/CPAP /BIPAP Additional Past Medical History / Comment(s): IDC, FREQ UTI. anemia; osteopenia ; parapalegic "R/T SPINAL SURG 2006, AND AMBULANCE INJURY LATER", obstructive sleep apnea, chronic Stallings catheter, shingles History of Any Multi-Drug Resistant Organisms: ESBL Date of last positivie culture/infection: 10/18/15 MDRO Source:: Urine-E.coli ESBL Past Surgical History: Adenoidectomy, Back Surgery, Joint Replacement, Orthopedic Surgery, Tonsillectomy Additional Past Surgical History / Comment(s): Neck surgery, ZAY KNEE REPLACEMENT, FUSION T-12 TO L-5 METAL REMOVED, L5 TO S1 - AND REFUSED,KNEE ARTHROSCOPY X3. RT FOOT METATRSAL BROKEN, BIOPSY ON ZAY BREAST-NEG, ZAY CARPAL TUNNEL, LT HAND BASAL. ARTHROSOCPY,UMBILICAL HERNIA, SANTANA 09/2012; LAPROSCOPY, B CATARACTS. Past Anesthesia/Blood Transfusion Reactions: Family History of Problems w/ Anesthesia, Postoperative Nausea & Vomiting (PONV) Additional Past Anesthesia/Blood Transfusion Reaction / Comment(s): HAD BLOOD TRANSFUSION IN PAST. SISTER HAD PROB BREATHING AFTER SURG. Past Psychological History: Depression Additional Psychological History / Comment(s): Lives in the family home. She has a visiting physician. Has family members that help her. She is on a bariatric air bed at home. She also has Summer lift, electric wheelchair, nebulizer, BiPAP and home oxygen at 2 L nasal cannula. Santana in place. Smoking Status: Former smoker Past Alcohol Use History: None Reported Past Drug Use History: None Reported - Past Family History Father Family Medical History: Cancer Additional Family Medical History / Comment(s): LUNG CA - BOTH PARENTS Mother Family Medical History: Cancer Medications and Allergies Home Medications Medication Instructions Recorded Confirmed Type Ascorbic Acid [Vitamin C] 1,000 mg PO DAILY@1200 10/22/13 06/12/16 History Aspirin 81 mg PO HS 10/22/13 06/12/16 History Baclofen [Lioresal] 10 mg PO BID 10/22/13 06/12/16 History Budesonide-Formot 160-4.5 Mcg 2 puff INHALATION RT-BID 10/22/13 06/12/16 History [Symbicort 160-4.5 Mcg Inhaler] Celecoxib [CeleBREX] 200 mg PO QAM 10/22/13 06/12/16 History Cetirizine HCl [Zyrtec] 10 mg PO QAM 10/22/13 06/12/16 History Furosemide [Lasix] 40 mg PO BID 10/22/13 06/12/16 History Montelukast Sodium [Singulair] 10 mg PO QAM 10/22/13 06/12/16 History Omeprazole [PriLOSEC] 20 mg PO HS 10/22/13 06/12/16 History Spironolactone [Aldactone] 25 mg PO BID 10/22/13 06/12/16 History Cyanocobalamin [Vitamin B-12] 1,000 mcg PO Q48H 10/18/15 06/12/16 History Ergocalciferol [Vitamin D2 50,000 unit PO FR 10/18/15 06/12/16 History (DRISDOL)] Ferrous Sulfate, Dried [Slow 159 mg PO DAILY@1200 10/18/15 06/12/16 History Release Iron] Sennosides [Senna] 17.2 mg PO BID 10/18/15 06/12/16 History Albuterol Inhaler [Ventolin Hfa 2 puff INHALATION RT-QID PRN 06/12/16 06/12/16 History Inhaler] Aztreonam [Azactam] 2 gm IVPB Q8H 06/12/16 06/12/16 History Citalopram Hydrobromide [CeleXA] 10 mg PO QAM 06/12/16 06/12/16 History HYDROcodone/APAP 5-325MG [[place] 1 tab PO Q8H PRN 06/12/16 06/12/16 History 5-325] metFORMIN HCL [Glucophage] 2,000 mg PO DAILY@199906/12/16 06/12/16 History predniSONE 20 mg PO DAILY 06/12/16 06/12/16 History Allergies Allergy/AdvReac Type Severity Reaction Status Date / Time acyclovir Allergy Rash/Hives Verified 06/12/16 16:06 cephalexin [Cephalexin] Allergy Anaphylaxis Verified 06/12/16 16:06 cephalexin monohydrate Allergy Anaphylaxis Verified 06/12/16 16:06 [From Keflex] Cephalosporins Allergy Unknown Verified 06/12/16 15:13 erythromycin base Allergy Unknown Verified 06/12/16 15:13 famciclovir Allergy Rash/Hives Verified 06/12/16 16:06 meropenem [From Merrem] Allergy Anaphylaxis Verified 06/12/16 16:06 nitrofurantoin Allergy Unknown Verified 06/12/16 15:13 [From Macrobid] nitrofurantoin Allergy Unknown Verified 06/12/16 15:13 macrocrystalline [From Macrobid] sulfamethoxazole Allergy Unknown Verified 06/12/16 15:13 [From Bactrim] trimethoprim [From Bactrim] Allergy Unknown Verified 06/12/16 15:13 Physical Exam Vitals: Vital Signs Temp Pulse Pulse Resp BP BP BP 06/13/16 11:33 99 06/13/16 11:17 95 06/13/16 10:00 95 19 108/63 06/13/16 09:00 103 H 19 123/51 06/13/16 08:56 101 H 06/13/16 08:46 96 06/13/16 08:00 99.0 F 101 H 19 140/65 06/13/16 07:00 89 23 154/56 06/13/16 06:30 92 17 140/62 06/13/16 06:00 90 30 H 140/62 06/13/16 05:00 85 27 H 145/68 06/13/16 04:00 97.6 F 85 15 151/66 06/13/16 03:00 86 19 137/71 06/13/16 02:30 86 23 117/65 06/13/16 02:00 82 25 H 117/60 06/13/16 01:30 88 25 H 121/66 06/13/16 01:00 88 12 110/66 06/13/16 00:30 90 21 122/63 06/13/16 00:00 99.3 F 93 29 H 137/56 06/12/16 23:59 93 30 H 137/56 06/12/16 23:30 99.3 F 96 27 H 131/61 06/12/16 23:00 95 12 127/62 06/12/16 22:30 104 H 26 H 110/51 06/12/16 22:00 107 H 19 122/58 06/12/16 21:30 107 H 23 111/56 06/12/16 21:09 109 H 28 H 110/67 06/12/16 20:20 99.7 F H 132 H 18 82/60 81/59 06/12/16 20:00 110 H 06/12/16 19:44 110 H 06/12/16 18:55 99.8 F H 120 H 22 112/59 06/12/16 18:09 135 H 18 131/61 06/12/16 17:03 142 H Pulse Ox 06/13/16 11:33 06/13/16 11:17 06/13/16 10:00 93 L 06/13/16 09:00 93 L 06/13/16 08:56 06/13/16 08:46 97 06/13/16 08:00 94 L 06/13/16 07:00 97 06/13/16 06:30 96 06/13/16 06:00 96 06/13/16 05:00 92 L 06/13/16 04:00 94 L 06/13/16 03:00 93 L 06/13/16 02:30 91 L 06/13/16 02:00 93 L 06/13/16 01:30 93 L 06/13/16 01:00 92 L 06/13/16 00:30 95 06/13/16 00:00 91 L 06/12/16 23:59 92 L 06/12/16 23:30 92 L 06/12/16 23:00 91 L 06/12/16 22:30 92 L 06/12/16 22:00 94 L 06/12/16 21:30 94 L 06/12/16 21:09 94 L 06/12/16 20:20 94 L 06/12/16 20:00 06/12/16 19:44 06/12/16 18:55 93 L 06/12/16 18:09 94 L 06/12/16 17:03 Intake and Output 06/13/16 06/13/16 06/13/16 06:59 14:59 22:59 Intake Total 646.0 60 Output Total 296 130 Balance 350.0 -70 Intake: IV 646.0 60 Piperacillin-Tazobactam 3 25.0 .375 gm In Dextrose/Water 1 50ml.bag @ 12.5 mls/hr IVPB Q8HR [facility] Rx#: [id number] Sodium Chloride 0.9% 1, 120 60 000 ml @ 20 mls/hr IV . Q24H [facility] Rx#:[id number] Vancomycin 2,000 mg In 501 Sodium Chloride 0.9% 500 ml @ 167 mls/hr IVPB Q24H [facility] Rx#:[id number] Output: Urine 296 130 Other: Voiding Method Indwelling Catheter Indwelling Catheter Weight 139.2 kg Physical Exam: Revealed a 65-year-old obese female, presently comfortable in the ICU, in no distress. HEENT:[Neck is supple.] [No neck masses.] [No thyromegaly.] [No JVD.] Short obese neck is noted. Chest: [Minimal crackles at the right base and some rhonchi noted on forced expiratory maneuver.] Cardiac Exam: [Normal S1 and S2, no S3 gallop, no murmur.] Abdomen: [Morbidly obese, Soft, nontender, no megaly, no rebound, no guarding, normal bowel sounds.] Extremities: [No clubbing, 1+ bipedal edema, no cyanosis.] Neurological Exam: [No focal neurologic deficit.] Results - Laboratory Findings CBC and BMP: 06/13/16 04:16 06/13/16 04:16 PT/INR, D-dimer PT 10.9 sec (9.0-12.0) 06/12/16 15:30 INR 1.1 (<1.1) 06/12/16 15:30 Abnormal lab findings: Abnormal Labs 06/12/16 06/12/16 06/13/16 19:20 20:44 04:16 WBC 22.3 H RBC 3.36 L Hgb 10.4 L Hct 33.3 L RDW 15.7 H Neutrophils # 19.4 H BUN Glucose POC Glucose (mg/dL) 144 H Urine Appearance Cloudy H Urine Blood Moderate H Ur Leukocyte Esterase Large H Urine RBC 81 H Urine WBC 84 H Amorphous Sediment Rare H Hyaline Casts 29 H Urine Mucus Few H Urine Yeast (Budding) Many H 06/13/16 06/13/16 06/13/16 04:16 07:23 13:14 WBC RBC Hgb Hct RDW Neutrophils # BUN 38 H Glucose 120 H POC Glucose (mg/dL) 108 H 104 H Urine Appearance Urine Blood Ur Leukocyte Esterase Urine RBC Urine WBC Amorphous Sediment Hyaline Casts Urine Mucus Urine Yeast (Budding) - Diagnostic Findings Chest x-ray: image reviewed (Suspect a right lower lobe infiltrate, pleural based thickening noted.) Assessment and Plan Plan: Impression: 1 acute sepsis, most likely sources will be urine and or lungs since the patient has a questionable limited infiltrate in the right lower lobe. However the most likely source is the urine more so than the lungs. 2 suspect acute right lower lobe pneumonia based on the chest x-ray findings. And based on her clinical presentation. This is most likely community-acquired. 3 multiple comorbidities including recurrent episodes of urinary tract infection secondary to ESBL E. coli, and enterococcus. History of type 2 diabetes. History of morbid obesity. Previous history of respiratory failure requiring intubation and mechanical ventilation secondary to sepsis. 4 history of chronic indwelling Stallings catheter. And history of chronic Port-A- Cath, placed over 2 years ago. Both are potential sources of recurrent infection. Recommendation: Continue present course of treatment including antibiotics, bronchodilators, GI and DVT prophylaxis, and patient will be seen by infectious disease on consultation. Patient will be kept in the ICU for the next 24 hours , and if she remains hemodynamically stable we will arrange for transfer to a regular medical floor. Critical care time is 40 minutes. Time with Patient: Greater than 30
[2016-06-13 16:59] LABS: Glucose,Whole Blood 117 mg/dL (75-99)
[2016-06-13] MEDS: MEROPENEM 1 GM in SODIUM CHLORIDE 0.9% 100 ML IVPB SCH ×2 (17:50→18:04)
[2016-06-13] MEDS ORDERED: LEVOFLOXACIN 750MG-D5W PMX 750 MG in DEXTROSE/WATER 1 150ML.BAG IVPB SCH ×2 (18:00→21:00)
[2016-06-13] MEDS: ACETAMINOPHEN TAB 325 MG TAB PO PRN (19:35)
[2016-06-13 20:28] LABS: Glucose,Whole Blood 141 mg/dL (75-99)
--- NOTE | 2016-06-13 21:07 | P.CON ---
Consult Note - . Consult date: 06/13/16 Assessment/Plan:: This is a 65-year-old female who is known to ID services as she was seen in October 2013 and was treated for ESBL E. coli urinary tract infection patient is noted to have multiple ALLERGIES including meropenem the causes an anaphylactic reaction as well as Keflex. She was also seen during hospitalization in October 2015 and was treated for urinary tract infection with ESBL E. coli and enterococcus as well as varicella-zoster. Patient states that she has not been feeling well for a while and has been on IV Azactam at home for 11 days that was ordered by her primary care physician delay her off for urinary tract infection and upper respiratory infection. She states that has not helped at all. She states she has had shortness of breath for 2-3 weeks and just continues to worsen. She feels like her right bronchial tube is contracted. She has a cough that started yesterday and tightness in her chest. She gives history of having asthma in the past and has a nebulizer without any improvement with use. Over the weekend she noticed blood in her urine as well as burning but patient does have a chronic Stallings catheter in place which she states was just changed Sunday of last week. She states that yesterday she was feeling cold and chilled. She denies any nausea vomiting and she is constipated which is chronic. For the past week she' s had decreased food and liquid intake. She came into [facility] emergency center with the above concerns. White count was noted to be 24.7 and repeat 22.3. AST of 75 and ALT 127, alkaline phosphatase 125. Urinalysis was cloudy, blood moderate, leukoesterase large, RBCs 81, WBCs 84, yeast budding many, culture is in process. Patient also has 2 blood cultures obtained from her Garza are showing gram-positive cocci. Her chest x-ray showed possible basilar pneumonia or atelectasis. She was diagnosed with urinary tract infection and exacerbation of COPD and bilateral pneumonia and admitted to the selective care unit. She then became hypotensive and pulse ox was low on BiPAP and she was transferred to the intensive care unit. She is status post fluid bolus and has not required vasopressors. She is followed by Dr. Pizarro for intensive care and pulmonary medicine. Sputum culture is on collected. Patient also complains of a rash to her left dorsal hand which she thinks is due to latex close which she uses to flush her Garza. She states she also has this on her right hand from time to time. She denies having any decubitus ulcers. Patient is currently living at home and she does have nurse aides through the day. She has a hospital bed with air mattress and trapeze, Summer lift, electric wheelchair, BiPAP, nebulizer and home oxygen at 2 L. Patient is a functional quadriplegic. Please see the consult note is dictated by nurse practitioner Mrs. Libia Malik. Patient does have a history of ESBL. Given her current level of illness and concerns pneumonia antibiotic therapy is contemplated. She's tolerated several doses of Zosyn. With this it would be highly unlikely that she truly has an anaphylactic reaction to meropenem. Consequently contemplation of this drug is made. The patient however refuses with her history of anaphylaxis thought to be to meropenem. Blood cultures showing evidence of gram-positive cocci in pairs and chains. This could be enterococcus. Vancomycin Is Continued. Zosyn Was Continued. We Do Await Final Urine Culture Which Will Further Help Direct the Gram-Negative Coverage Once It Is Available. The Patient Has Severe Respiratory Symptoms and Influenza A and B Testing Is Requested and Will Be Treated As Needed. I Agree with Evaluation, Assessment and Plan As Dictated by Nurse Practitioner Mrs. Libia Malik.
[2016-06-13] MEDS: VANCOMYCIN 2,000 MG in SODIUM CHLORIDE 0.9% 500 ML IVPB SCH ×3 (23:02)
[2016-06-13] MEDS: MONTELUKAST 10 MG TAB PO SCH (23:28)
[2016-06-13] MEDS: CITALOPRAM HYDROBROMIDE 10 MG TAB PO SCH (23:28)
[2016-06-13] MEDS: BACLOFEN 10 MG TAB PO SCH (23:28)
[2016-06-13] MEDS: FUROSEMIDE 40 MG TAB PO SCH (23:28)
[2016-06-13] MEDS: ASPIRIN 81 MG CHEW PO SCH (23:28)
[2016-06-13] MEDS: SENNOSIDES 8.6 MG TAB PO SCH (23:28)
[2016-06-13] MEDS: GABAPENTIN 300 MG CAP PO SCH (23:28)
[2016-06-13] MEDS: SPIRONOLACTONE 25 MG TAB PO SCH (23:28)
[2016-06-13] MEDS: SODIUM CHLORIDE 0.9% 1,000 ML IV SCH ×2 (23:29)
[2016-06-14] MEDS: HYDROcodone/APAP 5-325MG 1 EACH TAB PO PRN (01:23)
[2016-06-14] MEDS: PIPERACILLIN-TAZOBACTAM 3.375 GM in DEXTROSE/WATER 1 50ML.BAG IVPB SCH ×3 (03:25→20:20)
[2016-06-14 04:43] LABS: Basophils % (A) 0 %; CH 29.6; CHCM 30.8; Eosinophils # (A) 0.2 k/uL (0-0.7); Eosinophils % (A) 2 %; HCT 31.8 % (34.0-46.0); HDW 2.45; HGB 9.8 gm/dL (11.4-16.0); Hypochromasia Slight; Luc % (Auto) 1; Lymphocytes # (A) 1.4 k/uL (1.0-4.8); Lymphocytes % (A) 10 %; MCH 29.8 pg (25.0-35.0); MCHC 30.9 g/dL (31.0-37.0); MCV 96.5 fL (80.0-100.0); Mean Platelet Volume 7.7; Monocytes # (A) 0.5 k/uL (0-1.0); Monocytes % (A) 3 %; Neutrophils # (A) 12.5 k/uL (1.3-7.7); Neutrophils % (A) 85 %; RBC 3.29 m/uL (3.80-5.40); RDW 15.4 % (11.5-15.5); WBC 14.7 k/uL (3.8-10.6); WBC (Perox) 15.72
[2016-06-14 05:04] LABS: Anion Gap 10 mmol/L; Blood Urea Nitrogen 30 mg/dL (7-17); Calcium 8.8 mg/dL (8.4-10.2); Carbon Dioxide 28 mmol/L (22-30); Chloride 102 mmol/L (98-107); Glucose 111 mg/dL (74-99); Magnesium 2.6 mg/dL (1.6-2.3); Non-African American GFR(MDRD) 56 (>60 ml/min/1.73 sqM); Phosphorous 2.9 mg/dL (2.5-4.5); Potassium 4.1 mmol/L (3.5-5.1); Sodium 140 mmol/L (137-145)
--- NOTE | 2016-06-14 05:42 | PN ---
DATE OF SERVICE: 06/13/2016 PRESENTING COMPLAINT: Pneumonia. INTERVAL HISTORY: This is a patient with paraplegia presented with bilateral basilar pneumonia and resultant bronchospasm. Patient did tolerate her diet. Patient's blood cultures are growing streptococcus. Patient's wheezing is a shade better. Did tolerate some diet. Patient remains in the ICU. Review of systems done for constitutional, cardiovascular, GI, pulmonary; relevant findings as above. Current medications are reviewed that include IV Zosyn and vancomycin. On examination, temperature 99, pulse 119, respirations 26, blood pressure 128/60, pulse ox 96% on 5 L. GENERAL APPEARANCE: Sitting up, tired appearing. EYES: Pupils equal. Conjunctivae normal. NECK: JVD unable to assess. Mass not palpable. RESPIRATORY: Effort increased. LUNGS: Diminished breath sounds. CARDIOVASCULAR: First and second sounds normal. No edema. ABDOMEN: Distended, soft. Liver and spleen not palpable. PSYCHIATRY: Alert and oriented. Mood and affect slightly anxious appearing. INVESTIGATIONS: White count 22.3, hemoglobin 10.4. Potassium 4.5. Accu-Cheks are noted. Influenza screen is negative. Blood cultures Streptococcus species. ASSESSMENT: 1. Bibasilar pneumonia suspect gram-negative organism having failed outpatient treatment with patient's blood cultures positive for streptococci. 2. Morbid obesity, body mass index 61.3. 3. Paraplegia from failed spinal surgery. 4. Diabetes mellitus type 2 on oral hypoglycemic. 5. Chronic fibromyalgia. 6. Gastroesophageal reflux disease. 7. Hyperlipidemia. 8. Essential hypertension. 9. Primary osteoarthritis of multiple joints, bilateral. 10. Chronic urinary incontinence. Patient has a chronic Stallings catheter. 11. Acute Stallings catheter causing urinary tract infection. 12. Reactive bronchospasm. PLAN: Continue current medication and treatment plan. Care was discussed with the patient. Patient is still rather sick, but though a shade better than yesterday. Will follow.
[2016-06-14] MEDS: ACETAMINOPHEN TAB 325 MG TAB PO PRN (05:58)
[2016-06-14] MEDS: IPRATROPIUM-ALBUTEROL 3 ML NEB INHALATION SCH ×4 (07:38→19:32)
[2016-06-14 07:48] LABS: Glucose,Whole Blood 123 mg/dL (75-99)
--- NOTE | 2016-06-14 08:21 | XR ---
EXAMINATION TYPE: XR chest 1V DATE OF EXAM: 06/14/2016 6:49 AM COMPARISON: 06/13/2016 HISTORY: Shortness of breath TECHNIQUE: Single frontal view of the chest is obtained. FINDINGS: Right-sided central venous catheter seen. Heart is enlarged and there is bilateral areas o f infiltrate and small effusion. Pleural-based thickening stable. Postsurgical change overlying the c ervical spine. Tubing or catheter overlying the right hemithorax. IMPRESSION: 1. Basilar infiltrate and small effusion are stable.
[2016-06-14] MEDS: SENNOSIDES 8.6 MG TAB PO SCH ×2 (09:34→20:22)
[2016-06-14] MEDS: MELOXICAM 7.5 MG TAB PO SCH (09:34)
[2016-06-14] MEDS: FUROSEMIDE 40 MG TAB PO SCH ×2 (09:34→20:22)
[2016-06-14] MEDS: ENOXAPARIN 40 MG/0.4 ML SYRINGE SQ SCH (09:34)
[2016-06-14] MEDS: metFORMIN 500 MG TAB PO SCH ×2 (09:34→20:22)
[2016-06-14] MEDS: MONTELUKAST 10 MG TAB PO SCH (09:35)
[2016-06-14] MEDS: BACLOFEN 10 MG TAB PO SCH ×2 (09:35→20:20)
[2016-06-14] MEDS: PANTOPRAZOLE 40 MG TABLET PO SCH (09:35)
[2016-06-14] MEDS: GABAPENTIN 300 MG CAP PO SCH ×2 (09:35→20:22)
[2016-06-14] MEDS: SPIRONOLACTONE 25 MG TAB PO SCH ×2 (09:35→20:22)
[2016-06-14] MEDS: CITALOPRAM HYDROBROMIDE 10 MG TAB PO SCH (09:35)
[2016-06-14 12:31] LABS: Glucose,Whole Blood 101 mg/dL (75-99)
--- NOTE | 2016-06-14 14:44 | CDI ---
In responding to this query, please exercise your independent professional judgment. The [facility] Coding Staff and Clinical Documentation Specialists appreciate your assistance in clarifying documentation, maintaining compliance with coding guidelines, accurately documenting patients condition and capturing severity of illness. The fact that a question is asked does not imply that any particular answer is desired or expected. Communication forms are a method of clarifying documentation and are not made part of the Legal Health Record. Thank you in advance for your clarification. Last Revision, February 2015 Chintan Mae [address] [place] [address] Documentation Clarification Form Date: 06/14/2016 2:16:00 PM From: Melissa Love Admit Date: 06/12/2016 4:45:00 PM Patient Name: Sherry De Leon Visit Number: [id number] Discharge Date: Dr. Brittny READ consult on 06/13/16: Assessment shortness of breath with possible pneumonia, UTI with signs of sepsis and septic shock. History/Risk Factors: CHF, COPD, Hypertension, Paraplegic, Chronic Stallings catheter, Home O2 @ 2/L NC, ESBL Clinical Indicators: Patient has been on IV Azactam at home for 11 days for her UTI and upper respiratory infection. She now complains of blood in her urine and burning. She reports anorexia, chills, fatigue, lethargy, poor appetite and weakness WBC/Left Shift: 24.7; UA blood moderate, Leuko esterase large. Lactic acid; 2.0 Blood cultures: 06/12/16 Blood cultures from her Garza, Streptococcus species 06/13/16 No growth Vitals signs on admission: 159/109 61 20 99.8 96 % Chest x-ray possible basilar pneumonia or atelectasis. Other Clinical Indicators: She became hypotensive with vital signs: 81/59 132 18 99.7 94 % 4/L NC Treatment: IV Fluid bolus Duonebs per orders Vancomycin IV, Zosyn IV Monitor Labs In your professional opinion, can you please clarify if these findings signify one of the following conditions, whether the condition is POA, and cause, if known? or was Sepsis Ruled out? SIRS, without underlying infectious process Sepsis Severe Sepsis Septic Shock Unable to determine Other, please specify * Identify the (suspected) organism * Link or clarify if there is associated (due to/with): - Acute organ dysfunction - Shock SIRS Criteria: 2 or more of the following may indicate SIRS Core Temperature < 96.8F(36C) or > 101.3F (38.5C) Heart Rate Tachycardia > 2 SD above normal for age or Bradycardia <10th percentile for age (not due to other stimuli or specific causes) Respiratory Rate > 2 SD above normal for age or mechanical ventilation (not due to anesthesia or neuromuscular disease) White Blood Cell Count Elevated or depressed for age or > 10% bands (not due to chemo) Please document in your progress notes and discharge summary in order to capture severity of illness and risk of mortality. Include clinical findings that support your diagnosis. FYI: Press F11 to launch patient chart. Place X here if this finding has no clinical significance, is not applicable or if you are not able to provide any additional documentation. TIM
--- NOTE | 2016-06-14 15:14 | P.PN ---
Subjective Principal diagnosis: Acute right lower lobe pneumonia, urinary tract infection, and acute sepsis. This is a 65-year-old female with history of multiple medical problems including recurrent urinary tract infections secondary to ESBL E. coli, also secondary to enterococcus, and previous episodes of sepsis and respiratory failure secondary to urosepsis. Patient was recently treated by her primary care physician for what seemed to be a urinary tract infection and he was utilizing IV Azactam. Patient has been on 11 days of treatment for her UTI. In the meantime she was also complaining of significant upper respiratory symptoms. In spite of treatment, patient was not doing well. She continues to have increased shortness of breath, cough, wheezing, chest tightness, and she felt that her asthma was acting up on her, she was using her nebulizer treatment without much improvement. Few days prior to admission, patient noted blood in her urine. And her chronic Stallings catheter was changed recently. In addition to the other symptoms, patient has been complaining of weakness, decreased by mouth intake including food and liquids, patient then presented to the ER. With all these multiple complaints. In the ER, patient was noted to have a possible urinary tract infection based on her urinalysis, and her chest x -ray showed possibility of right lower lobe limited infiltrate. Patient was essentially admitted to the regular medical floor, and her lactic acid was 2.0. However while on the medical floor, her condition worsened, patient was noted to have more shortness of breath, she was also developing hypotensive episodes, knowing in fact that the patient received diuretics in the ER. Her initial chest x-ray clearly did not show congestive heart failure, but for some reason patient was receiving diuretics. At any rate when I was notified about this patient, I recommended transfer to the ICU, fluid boluses, broad-spectrum antibiotics including Levaquin and Zosyn and vancomycin, I also recommended norepinephrine to be started if the patient does not respond to fluid boluses. Overnight, the patient did quite well, and did not require intubation, did not require hemodynamic support with pressors. Her blood cultures today showed gram -positive cocci in chains, urine culture is in progress. CBC showed leukocytosis with WBC count of 22.3. Electrolytes were noted to be normal. BUN is 38 creatinine is 1.0. Her urinalysis showed evidence of hematuria, bacteriuria, and pyuria. Patient was reevaluated today on 06/14/2016, seems to be doing well, hemodynamically stable, she has occasional cough and wheezing, but no shortness of breath no chest pain no fever no chills no hemoptysis. Labs were reviewed WBC count is 14.7 hemoglobin is 9.8 electrolytes are normal renal profile is relatively normal. Chest x-ray is suggestive of by basilar infiltrates, more so in the right base. Objective - Vital Signs Vital signs: Vital Signs Temp 99.1 F 06/14/16 08:00 Pulse 98 06/14/16 11:26 Resp 19 06/14/16 09:00 BP 115/56 06/14/16 09:00 Pulse Ox 95 06/14/16 09:00 Intake & Output 06/13/16 06/14/16 06/14/16 18:59 06:59 18:59 Intake Total 430.0 628.5 72.5 Output Total 605 1127 180 Balance -175.0 -498.5 -107.5 Weight 142 kg Intake: IV 190.0 628.5 72.5 Piperacillin-Tazobactam 3 50.0 87.5 12.5 .375 gm In Dextrose/Water 1 50ml.bag @ 12.5 mls/hr IVPB Q8HR [facility] Rx#: [id number] Sodium Chloride 0.9% 1, 140 40 60 000 ml @ 20 mls/hr IV . Q24H [facility] Rx#:[id number] Vancomycin 2,000 mg In 501 Sodium Chloride 0.9% 500 ml @ 167 mls/hr IVPB Q24H [facility] Rx#:[id number] Oral 240 Output: Urine 605 1127 180 Other: Voiding Method Indwelling Catheter Indwelling Catheter Indwelling Catheter - Exam Physical Exam: Revealed a 65-year-old obese female, presently comfortable in the ICU, in no distress. HEENT:[Neck is supple.] [No neck masses.] [No thyromegaly.] [No JVD.] Short obese neck is noted. Chest: [Minimal crackles at the right base and some rhonchi noted on forced expiratory maneuver.] Cardiac Exam: [Normal S1 and S2, no S3 gallop, no murmur.] Abdomen: [Morbidly obese, Soft, nontender, no megaly, no rebound, no guarding, normal bowel sounds.] Extremities: [No clubbing, 1+ bipedal edema, no cyanosis.] Neurological Exam: [No focal neurologic deficit.] - Labs CBC & Chem 7: 06/14/16 04:36 06/14/16 04:36 Labs: Abnormal Lab Results - Last 24 Hours (Table) 06/13/16 06/13/16 06/14/16 Range/Units 16:56 20:27 04:36 WBC 14.7 H (3.8-10.6) k/uL RBC 3.29 L (3.80-5.40) m/uL Hgb 9.8 L (11.4-16.0) gm/dL Hct 31.8 L (34.0-46.0) % MCHC 30.9 L (31.0-37.0) g/dL Neutrophils # 12.5 H (1.3-7.7) k/uL BUN (7-17) mg/dL Glucose (74-99) mg/dL POC Glucose (mg/dL) 117 H 141 H (75-99) mg/dL Magnesium (1.6-2.3) mg/dL 06/14/16 06/14/16 06/14/16 Range/Units 04:36 07:46 12:28 WBC (3.8-10.6) k/uL RBC (3.80-5.40) m/uL Hgb (11.4-16.0) gm/dL Hct (34.0-46.0) % MCHC (31.0-37.0) g/dL Neutrophils # (1.3-7.7) k/uL BUN 30 H (7-17) mg/dL Glucose 111 H (74-99) mg/dL POC Glucose (mg/dL) 123 H 101 H (75-99) mg/dL Magnesium 2.6 H (1.6-2.3) mg/dL Microbiology - Last 24 Hours (Table) 06/13/16 10:10 Blood Culture - Preliminary Blood No Growth after 24 hours 06/13/16 10:46 Blood Culture - Preliminary Blood No Growth after 24 hours 06/12/16 19:20 Urine Culture - Preliminary Urine,Catheterized Group D Enterococcus Yeast species Assessment and Plan Plan: Impression: 1 acute sepsis, most likely sources will be urine and or lungs since the patient has a questionable limited infiltrate in the right lower lobe. However the most likely source is the urine more so than the lungs. 2 suspect acute right lower lobe pneumonia based on the chest x-ray findings. And based on her clinical presentation. This is most likely community-acquired. 3 multiple comorbidities including recurrent episodes of urinary tract infection secondary to ESBL E. coli, and enterococcus. History of type 2 diabetes. History of morbid obesity. Previous history of respiratory failure requiring intubation and mechanical ventilation secondary to sepsis. 4 history of chronic indwelling Stallings catheter. And history of chronic Port-A- Cath, placed over 2 years ago. Both are potential sources of recurrent infection. Blood cultures are positive for Streptococcus species.. Her urine is showing group D enterococcus and yeast species, those are being addressed by Dr. Cannon on the case. Recommendation: Continue present course of treatment including antibiotics, bronchodilators, GI and DVT prophylaxis, antibiotics as addressed by infectious disease on the case. Patient will be transferred out of the ICU today, we'll continue to follow. Time with Patient: Less than 30
[2016-06-14 17:22] LABS: Glucose,Whole Blood 117 mg/dL (75-99)
--- NOTE | 2016-06-14 19:30 | P.PN ---
Subjective Principal diagnosis: Pneumonia This is a 65-year-old female who is known to ID services as she was seen in October 2013 and was treated for ESBL E. coli urinary tract infection patient is noted to have multiple ALLERGIES including meropenem the causes an anaphylactic reaction as well as Keflex. She was also seen during hospitalization in October 2015 and was treated for urinary tract infection with ESBL E. coli and enterococcus as well as varicella-zoster. Patient states that she has not been feeling well for a while and has been on IV Azactam at home for 11 days that was ordered by her primary care physician Dr. santiago her off for urinary tract infection and upper respiratory infection. She states that has not helped at all. She states she has had shortness of breath for 2-3 weeks and just continues to worsen. She feels like her right bronchial tube is contracted. She has a cough that started yesterday and tightness in her chest. She gives history of having asthma in the past and has a nebulizer without any improvement with use. Over the weekend she noticed blood in her urine as well as burning but patient does have a chronic Stallings catheter in place which she states was just changed Sunday of last week. She states that yesterday she was feeling cold and chilled. She denies any nausea vomiting and she is constipated which is chronic. For the past week she' s had decreased food and liquid intake. She came into [facility] emergency center with the above concerns. White count was noted to be 24.7 and repeat 22.3. AST of 75 and ALT 127, alkaline phosphatase 125. Urinalysis was cloudy, blood moderate, leukoesterase large, RBCs 81, WBCs 84, yeast budding many, culture is in process. Patient also has 2 blood cultures obtained from her Garza are showing gram-positive cocci. Her chest x-ray showed possible basilar pneumonia or atelectasis. She was diagnosed with urinary tract infection and exacerbation of COPD and bilateral pneumonia and admitted to the selective care unit. She then became hypotensive and pulse ox was low on BiPAP and she was transferred to the intensive care unit. She is status post fluid bolus and has not required vasopressors. She is followed by Dr. Pizarro for intensive care and pulmonary medicine. Sputum culture is on collected. Patient also complains of a rash to her left dorsal hand which she thinks is due to latex close which she uses to flush her Garza. She states she also has this on her right hand from time to time. She denies having any decubitus ulcers. Patient is currently living at home and she does have nurse aides through the day. She has a hospital bed with air mattress and trapeze, Summer lift, electric wheelchair, BiPAP, nebulizer and home oxygen at 2 L. Patient is a functional quadriplegic. Patient is improved and is moved out of the intensive care unit. Is feeling slightly better. Objective - Vital Signs Vital signs: Vital Signs Temp 99 F 06/14/16 15:00 Pulse 100 06/14/16 16:13 Resp 21 06/14/16 15:00 BP 138/67 06/14/16 15:00 Pulse Ox 94 L 06/14/16 15:00 Intake & Output 06/14/16 06/14/16 06/15/16 06:59 18:59 06:59 Intake Total 628.5 72.5 Output Total 1127 180 Balance -498.5 -107.5 Weight 142 kg Intake: IV 628.5 72.5 Piperacillin-Tazobactam 3 87.5 12.5 .375 gm In Dextrose/Water 1 50ml.bag @ 12.5 mls/hr IVPB Q8HR [facility]NE Rx#: [id number] Sodium Chloride 0.9% 1, 40 60 000 ml @ 20 mls/hr IV . Q24H [facility] Rx#:[id number] Vancomycin 2,000 mg In 501 Sodium Chloride 0.9% 500 ml @ 167 mls/hr IVPB Q24H [facility] Rx#:[id number] Output: Urine 1127 180 Other: Voiding Method Indwelling Catheter Indwelling Catheter # Bowel Movements 1 - Exam en: This is a super morbid obese 65-year-old female an ICU bed appears to be comfortable and in no distress. HEENT: Head is atraumatic, normocephalic. Pupils equal, round. Sclerae is anicteric. Conjunctiva slightly pale. Oral mucous membranes slightly dry. No thrush noted. NECK: Short and thick. Supple. No JVD. No lymphadenopathy. No thyromegaly. LUNGS: Diminished at the bases with inspiratory and expiratory wheezes. Crackles at the bases. No nancy bronchial sounds. HEART: Regular rate and rhythm. No murmur. Right subclavian Garza catheter in place. ABDOMEN: Morbidly obese. Soft. Bowel sounds are present. No masses. No tenderness. Stallings catheter draining manny urine. EXTREMITIES: 1+ pedal edema bilateral. Dorsalis pedis 1+ bilaterally. NEUROLOGICAL: Patient is awake, alert and oriented x3. Is generalized lower extremity paresis - Labs CBC & Chem 7: 06/14/16 04:36 06/14/16 04:36 Labs: Abnormal Lab Results - Last 24 Hours (Table) 06/13/16 06/14/16 06/14/16 Range/Units 20:27 04:36 04:36 WBC 14.7 H (3.8-10.6) k/uL RBC 3.29 L (3.80-5.40) m/uL Hgb 9.8 L (11.4-16.0) gm/dL Hct 31.8 L (34.0-46.0) % MCHC 30.9 L (31.0-37.0) g/dL Neutrophils # 12.5 H (1.3-7.7) k/uL BUN 30 H (7-17) mg/dL Glucose 111 H (74-99) mg/dL POC Glucose (mg/dL) 141 H (75-99) mg/dL Magnesium 2.6 H (1.6-2.3) mg/dL 06/14/16 06/14/16 06/14/16 Range/Units 07:46 12:28 17:18 WBC (3.8-10.6) k/uL RBC (3.80-5.40) m/uL Hgb (11.4-16.0) gm/dL Hct (34.0-46.0) % MCHC (31.0-37.0) g/dL Neutrophils # (1.3-7.7) k/uL BUN (7-17) mg/dL Glucose (74-99) mg/dL POC Glucose (mg/dL) 123 H 101 H 117 H (75-99) mg/dL Magnesium (1.6-2.3) mg/dL Microbiology - Last 24 Hours (Table) 06/13/16 10:10 Blood Culture - Preliminary Blood No Growth after 24 hours 06/13/16 10:46 Blood Culture - Preliminary Blood No Growth after 24 hours 06/12/16 19:20 Urine Culture - Preliminary Urine,Catheterized Group D Enterococcus Yeast species Laboratory Results WBC 14.7 k/uL (3.8-10.6) H 06/14/16 04:36 RBC 3.29 m/uL (3.80-5.40) L 06/14/16 04:36 Hgb 9.8 gm/dL (11.4-16.0) L 06/14/16 04:36 Hct 31.8 % (34.0-46.0) L 06/14/16 04:36 MCV 96.5 fL (80.0-100.0) 06/14/16 04:36 MCH 29.8 pg (25.0-35.0) 06/14/16 04:36 MCHC 30.9 g/dL (31.0-37.0) L 06/14/16 04:36 RDW 15.4 % (11.5-15.5) 06/14/16 04:36 Plt Count 317 k/uL (150-450) 06/14/16 04:36 Neutrophils % 85 % 06/14/16 04:36 Lymphocytes % 10 % 06/14/16 04:36 Monocytes % 3 % 06/14/16 04:36 Eosinophils % 2 % 06/14/16 04:36 Basophils % 0 % 06/14/16 04:36 Neutrophils # 12.5 k/uL (1.3-7.7) H 06/14/16 04:36 Lymphocytes # 1.4 k/uL (1.0-4.8) 06/14/16 04:36 Monocytes # 0.5 k/uL (0-1.0) 06/14/16 04:36 Eosinophils # 0.2 k/uL (0-0.7) 06/14/16 04:36 Basophils # 0.0 k/uL (0-0.2) 06/14/16 04:36 Hypochromasia Slight 06/14/16 04:36 Macrocytosis Slight 06/13/16 04:16 PT 10.9 sec (9.0-12.0) 06/12/16 15:30 INR 1.1 (<1.1) 06/12/16 15:30 APTT 23.0 sec (22.0-30.0) 06/12/16 15:30 Sodium 140 mmol/L (137-145) 06/14/16 04:36 Potassium 4.1 mmol/L (3.5-5.1) 06/14/16 04:36 Chloride 102 mmol/L (98-107) 06/14/16 04:36 Carbon Dioxide 28 mmol/L (22-30) 06/14/16 04:36 Anion Gap 10 mmol/L 06/14/16 04:36 BUN 30 mg/dL (7-17) H 06/14/16 04:36 Creatinine 1.00 mg/dL (0.52-1.04) 06/14/16 04:36 Est GFR (MDRD) Af Amer >60 (>60 ml/min/1.73 sqM) 06/14/16 04:36 Est GFR (MDRD) Non-Af 56 (>60 ml/min/1.73 sqM) 06/14/16 04:36 Glucose 111 mg/dL (74-99) H 06/14/16 04:36 POC Glucose (mg/dL) 117 mg/dL (75-99) H 06/14/16 17:18 POC Glu Gasket Winder ID Alicia Pike 06/14/16 17:18 Plasma Lactic Acid Kvng 2.0 mmol/L (0.7-2.0) 06/12/16 18:12 Calcium 8.8 mg/dL (8.4-10.2) 06/14/16 04:36 Phosphorus 2.9 mg/dL (2.5-4.5) 06/14/16 04:36 Magnesium 2.6 mg/dL (1.6-2.3) H 06/14/16 04:36 Total Bilirubin 0.5 mg/dL (0.2-1.3) 06/12/16 15:30 AST 75 U/L (14-36) H 06/12/16 15:30 ALT 127 U/L (9-52) H 06/12/16 15:30 Alkaline Phosphatase 125 U/L (38-126) 06/12/16 15:30 Total Creatine Kinase 30 U/L (30-135) 06/12/16 15:30 CK-MB (CK-2) 0.7 ng/mL (0.0-2.4) 06/12/16 15:30 CK-MB (CK-2) Rel Index 2.3 06/12/16 15:30 Troponin I <0.012 ng/mL (0.000-0.034) 06/12/16 15:30 NT-Pro-B Natriuret Pep 198 pg/mL 06/12/16 15:30 Total Protein 7.4 g/dL (6.3-8.2) 06/12/16 15:30 Albumin 4.2 g/dL (3.5-5.0) 06/12/16 15:30 TSH 1.540 mIU/L (0.465-4.680) 06/12/16 15:30 Urine Color Yellow 06/12/16 19:20 Urine Appearance Cloudy (Clear) H 06/12/16 19:20 Urine pH 5.0 (5.0-8.0) 06/12/16 19:20 Ur Specific [place] 1.010 (1.001-1.035) 06/12/16 19:20 Urine Protein Negative (Negative) 06/12/16 19:20 Urine Glucose (UA) Negative (Negative) 06/12/16 19:20 Urine Ketones Negative (Negative) 06/12/16 19:20 Urine Blood Moderate (Negative) H 06/12/16 19:20 Urine Nitrate Negative (Negative) 06/12/16 19:20 Urine Bilirubin Negative (Negative) 06/12/16 19:20 Urine Urobilinogen <2.0 mg/dL (<2.0) 06/12/16 19:20 Ur Leukocyte Esterase Large (Negative) H 06/12/16 19:20 Urine RBC 81 /hpf (0-5) H 06/12/16 19:20 Urine WBC 84 /hpf (0-5) H 06/12/16 19:20 Ur Squamous Epith Cells 1 /hpf (0-4) 06/12/16 19:20 Amorphous Sediment Rare /hpf (None) H 06/12/16 19:20 Hyaline Casts 29 /lpf (0-2) H 06/12/16 19:20 Urine Mucus Few /hpf (None) H 06/12/16 19:20 Urine Yeast (Budding) Many /hpf (None) H 06/12/16 19:20 Influenza Type A RNA Not Detected (Not Detectd) 06/13/16 20:20 Influenza Type B (PCR) Not Detected (Not Detectd) 06/13/16 20:20 Microbiology 06/13/16 10:10 Blood Blood Culture - Preliminary No Growth after 24 hours 06/13/16 10:46 Blood Blood Culture - Preliminary No Growth after 24 hours 06/12/16 19:20 Urine,Catheterized Urine Culture - Preliminary Group D Enterococcus Yeast species 06/12/16 16:13 Blood Blood Culture Gram Stain - Preliminary 06/12/16 16:13 Blood Blood Culture - Preliminary Streptococcus species 06/12/16 16:13 Blood Blood Culture - Preliminary Assessment and Plan (1) Pneumonia Narrative/Plan: 65-year-old woman who suffers from superobesity presents to Hospital with a many day history of shortness of breath. He treated the outpatient setting with Azactam. Despite this she continued to worsen. She has evidence at this point in time of enterococcus in her urinary system. There is also evidence of a gram-positive cocci which appears to be streptococcus from her blood culture. Of note Azactam would have coverage of neither of these pathogens. Receiving Zosyn therapy and is considerably improved. Is also receiving vancomycin pending the final identification of the blood culture. Follow blood cultures are negative. Potential that the blood culture will be streptococcus pneumoniae, which be coming from her pulmonary system. If so would be able to salvage her current catheter. Await final identification and follow blood cultures. She fortunately is improved on current therapy and this will continue. Status: Acute (2) Streptococcal bacteremia Status: Acute (3) Enterococcus UTI Status: Acute
[2016-06-14] MEDS: METOCLOPRAMIDE 10 MG TAB PO SCH (20:22)
[2016-06-14] MEDS: ASPIRIN 81 MG CHEW PO SCH (20:22)
[2016-06-14 21:03] LABS: Glucose,Whole Blood 162 mg/dL (75-99)
[2016-06-15] MEDS: guaiFENesin 600 MG TABLET.ER PO SCH ×3 (00:25→20:19)
[2016-06-15] MEDS: SODIUM CHLORIDE 0.9% 1,000 ML IV SCH ×2 (00:25→23:12)
[2016-06-15] MEDS: VANCOMYCIN 2,000 MG in SODIUM CHLORIDE 0.9% 500 ML IVPB SCH ×2 (00:25→23:43)
[2016-06-15] MEDS: PIPERACILLIN-TAZOBACTAM 3.375 GM in DEXTROSE/WATER 1 50ML.BAG IVPB SCH ×3 (03:37→19:38)
[2016-06-15 03:45] LABS: Glucose,Whole Blood 133 mg/dL (75-99)
[2016-06-15] MEDS: IPRATROPIUM-ALBUTEROL 3 ML NEB INHALATION SCH ×4 (07:08→20:48)
[2016-06-15 07:18] LABS: Glucose,Whole Blood 115 mg/dL (75-99)
[2016-06-15] MEDS: ENOXAPARIN 40 MG/0.4 ML SYRINGE SQ SCH (08:02)
[2016-06-15] MEDS: SENNOSIDES 8.6 MG TAB PO SCH ×2 (08:02→20:19)
[2016-06-15] MEDS: SPIRONOLACTONE 25 MG TAB PO SCH ×2 (08:03→20:19)
[2016-06-15] MEDS: FUROSEMIDE 40 MG TAB PO SCH ×2 (08:03→20:19)
[2016-06-15] MEDS: MONTELUKAST 10 MG TAB PO SCH (08:03)
[2016-06-15] MEDS: GABAPENTIN 300 MG CAP PO SCH ×2 (08:03→20:19)
[2016-06-15] MEDS: METOCLOPRAMIDE 10 MG TAB PO SCH ×2 (08:03→20:19)
[2016-06-15] MEDS: PANTOPRAZOLE 40 MG TABLET PO SCH (08:04)
[2016-06-15] MEDS: MELOXICAM 7.5 MG TAB PO SCH (08:04)
[2016-06-15] MEDS: BACLOFEN 10 MG TAB PO SCH ×2 (08:04→20:19)
[2016-06-15] MEDS: CITALOPRAM HYDROBROMIDE 10 MG TAB PO SCH (08:04)
--- NOTE | 2016-06-15 08:13 | PN ---
DATE OF SERVICE: 06/14/2016 PRESENTING COMPLAINT: Pneumonia. INTERVAL HISTORY: This patient presented with bilateral basal pneumonia. Resulting bronchospasm. Blood cultures have been positive. The patient still has a congested cough. Not beginning any sputum up. Patient has been moved out of the ICU. The patient has a Garza in place. Review of systems: Done for constitutional, cardiovascular, GI, pulmonary; relevant findings as above. Current medications are reviewed that include IV Zosyn and vancomycin. On examination, temperature 99, pulse 100, respiration 21, blood pressure 130/67, pulse ox 94% on 3 L. GENERAL APPEARANCE: Sitting up, more perked up. EYES: Pupils equal. Conjunctivae normal. NECK: JVD unable to assess. Mass not palpable. RESPIRATORY: Effort increased. LUNGS: Decreased breath sounds. Expiratory wheezing. CARDIOVASCULAR: First and second sounds normal. No edema. ABDOMEN: Soft, nontender. Liver and spleen not palpable. PSYCHIATRY: Alert and oriented x3. Mood and affect slightly anxious. EXTREMITIES: Paraplegia in the lower extremities. INVESTIGATIONS: White count 14.7, hemoglobin 9.8, potassium 4.1. Blood cultures are growing Streptococcus species. Urine is growing group B enterococcus and yeast. ASSESSMENT: 1. Bibasilar pneumonia, suspect gram-negative organism and failed outpatient treatment with blood cultures positive for streptococci, presented on admission. 2. Moderate obesity, body mass index 61.3. 3. 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 4. Diabetes mellitus, type II, on oral hypoglycemic. 5. Chronic fibromyalgia. 6. Gastroesophageal reflux disease. 7. Hyperlipidemia. 8. Essential hypertension. 9. Primary osteoarthritis of multiple joints, bilaterally. 10. Chronic urinary incontinence. The patient has a chronic Stallings catheter. 11. Acute urinary tract infection from Stallings catheter. 12. Reactive bronchospasm. PLAN: Care was discussed with the patient. Await culture results and continue current medication and treatment plan. We will add some Mucinex.
--- NOTE | 2016-06-15 10:56 | XR ---
EXAMINATION TYPE: XR chest 1V DATE OF EXAM: 06/15/2016 9:06 AM COMPARISON: Prior chest x-ray one June 1999 HISTORY: Congestive heart failure, pneumonia, asthma TECHNIQUE: Single frontal view of the chest is obtained. FINDINGS: Patchy basilar density is again noted. Right jugular central venous catheter is stable. Th ere are overlying cardiac leads. Postop change noted to the neck. No evident pneumothorax or pleural effusion. Exam is expiratory and rotated. Heart is likely enlarged. IMPRESSION: Correlate for basilar atelectasis versus pneumonia. Cardiomegaly.
[2016-06-15 11:46] LABS: Glucose,Whole Blood 74 mg/dL (75-99)
[2016-06-15 17:02] LABS: Glucose,Whole Blood 134 mg/dL (75-99)
[2016-06-15] MEDS: metFORMIN 500 MG TAB PO SCH (19:37)
[2016-06-15] MEDS: ACETAMINOPHEN TAB 325 MG TAB PO PRN (19:38)
[2016-06-15] MEDS: ALPRAZolam 0.25 MG TAB PO PRN (19:38)
[2016-06-15] MEDS: ASPIRIN 81 MG CHEW PO SCH (20:19)
[2016-06-15 20:54] LABS: Glucose,Whole Blood 123 mg/dL (75-99)
[2016-06-15] MEDS ORDERED: VANCOMYCIN TROUGH DUE 1 EACH MISC MISCELLANE ONE (22:00)
[2016-06-15 23:18] LABS: Glucose,Whole Blood 138 mg/dL (75-99)
[2016-06-16] MEDS: PIPERACILLIN-TAZOBACTAM 3.375 GM in DEXTROSE/WATER 1 50ML.BAG IVPB SCH ×3 (03:10→22:15)
[2016-06-16 07:13] LABS: Glucose,Whole Blood 125 mg/dL (75-99)
--- NOTE | 2016-06-16 07:26 | PN ---
DATE OF SERVICE: 06/15/2016 PRESENTING COMPLAINT: Pneumonia. INTERVAL HISTORY: This is a patient who presented with lateral basal pneumonia, resulting bronchospasm, and also positive blood cultures. Patient's coughing is getting a bit better. Tolerating a diet. Less wheezing. Review of systems done for constitutional, cardiovascular, GI, pulmonary; relevant findings as above. Current medications are reviewed that include IV Zosyn and vancomycin. On examination, temperature 98.4, pulse 89, respiration 20, blood pressure 140/64, pulse ox 94% on 3-L. GENERAL APPEARANCE: Sitting up, awake. EYES: Pupils equal. Conjunctivae normal. NECK: JVD not raised. Mass not palpable. RESPIRATORY: Effort increased. LUNGS: Improved air entry. Mild expiratory crackles in the midline of the upper half. CARDIOVASCULAR: First and second sounds normal. No edema. ABDOMEN: Soft, nontender. Liver and spleen not palpable. PSYCHIATRY: Alert and oriented x3. Mood and affect normal. EXTREMITIES: Paraplegia. INVESTIGATIONS: Accu-Cheks are noted. Blood cultures are growing Streptococcus pneumoniae and urine cultures growing Enterococcus faecalis and Mame albicans. ASSESSMENT: 1. Bibasilar pneumonia with sepsis, present at admission, failed outpatient treatment with blood cultures positive for Streptococcus pneumoniae. 2. Acute urinary tract infection, Stallings catheter associated from Enterococcus faecalis. 3. Morbid obesity, body mass index 61.3. 4. 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 5. Diabetes mellitus type 2, oral hypoglycemic. 6. Chronic fibromyalgia. 7. Gastroesophageal reflux disease. 8. Hyperlipidemia. 9. Essential hypertension. 10. Primary osteoarthritis, multiple joints, bilaterally. 11. Chronic urinary incontinence. The patient has a chronic Stallings catheter. 12. Reactive bronchospasm. PLAN: Continue current medication and treatment plan. Follow.
[2016-06-16] MEDS: ENOXAPARIN 40 MG/0.4 ML SYRINGE SQ SCH (08:06)
[2016-06-16] MEDS: SPIRONOLACTONE 25 MG TAB PO SCH ×2 (08:06→22:18)
[2016-06-16] MEDS: GABAPENTIN 300 MG CAP PO SCH ×2 (08:06→22:17)
[2016-06-16] MEDS: PANTOPRAZOLE 40 MG TABLET PO SCH (08:07)
[2016-06-16] MEDS: FUROSEMIDE 40 MG TAB PO SCH ×2 (08:07→22:17)
[2016-06-16] MEDS: METOCLOPRAMIDE 10 MG TAB PO SCH ×2 (08:07→22:18)
[2016-06-16] MEDS: CITALOPRAM HYDROBROMIDE 10 MG TAB PO SCH (08:07)
[2016-06-16] MEDS: BACLOFEN 10 MG TAB PO SCH ×2 (08:07→22:17)
[2016-06-16] MEDS: SENNOSIDES 8.6 MG TAB PO SCH ×2 (08:07→22:18)
[2016-06-16] MEDS: MONTELUKAST 10 MG TAB PO SCH (08:08)
[2016-06-16] MEDS: MELOXICAM 7.5 MG TAB PO SCH (08:08)
[2016-06-16] MEDS: guaiFENesin 600 MG TABLET.ER PO SCH ×3 (08:10→22:34)
[2016-06-16] MEDS: IPRATROPIUM-ALBUTEROL 3 ML NEB INHALATION SCH ×4 (08:27→19:44)
[2016-06-16 11:34] LABS: Glucose,Whole Blood 184 mg/dL (75-99)
[2016-06-16 17:20] LABS: Glucose,Whole Blood 106 mg/dL (75-99)
--- NOTE | 2016-06-16 20:10 | PN ---
DATE OF SERVICE: 06/16/2016 PRESENTING COMPLAINT: Pneumonia. INTERVAL HISTORY: This is a patient presented with bilateral basal pneumonia and resulting bronchospasm, also positive blood cultures for Streptococcus pneumoniae. The patient breathing is overall better, but still got some cough. The patient is requesting further Mucinex to be stopped, did tolerate some diet. Patient has chronic paraplegia. Review of systems done for constitutional, cardiovascular, GI, pulmonary; relevant findings as above. Current medications are reviewed that include IV Zosyn and vancomycin. On examination, temperature 97, pulse 91, respirations 19, blood pressure 130/60, pulse ox 93% on 3 liters. GENERAL APPEARANCE: Sitting up, awake, comfortable. EYES: Pupils equal, conjunctivae normal. NECK: JVD not raised. Mass not palpable. RESPIRATORY: Effort normal. Lungs improved air entry. The patient has very limited expiratory crackles in the midline of the upper half of the chest. Otherwise has got fair air entry. CARDIOVASCULAR: First and second sounds normal. No edema. ABDOMEN: Nontender. Liver and spleen not palpable. PSYCHIATRY: Alert and oriented x3. Mood and affect normal. NEUROLOGICAL: Paraplegia. INVESTIGATIONS: Accu-Cheks are noted. ASSESSMENT: 1. Bibasilar pneumonia with sepsis, present on admission, having failed outpatient treatment. Blood cultures positive for Streptococcus pneumoniae. 2. Acute urinary tract infection secondary to cause by Stallings catheter growing Enterococcus faecalis. 3. Morbid obesity; body mass index of 61.3. 4. 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 5. Diabetes mellitus type 2 on oral hyperglycemic. 6. Chronic fibromyalgia. 7. Gastroesophageal reflux disease. 8. Hyperlipidemia. 9. Essential hypertension. 10. Primary osteoarthritis of multiple joints, bilaterally. 11. Chronic urinary incontinence. Patient has a chronic Stallings catheter. 12. Reactive bronchospasm. PLAN: Patient's Mucinex will be discontinued. I told the nurse Yimi to provide the patient with warm salt water for gargle. The patient white count continues to come down. Clinically patient continues to improve.
--- NOTE | 2016-06-16 21:11 | P.PN ---
Subjective Principal diagnosis: Pneumonia This is a 65-year-old female who is known to ID services as she was seen in October 2013 and was treated for ESBL E. coli urinary tract infection patient is noted to have multiple ALLERGIES including meropenem the causes an anaphylactic reaction as well as Keflex. She was also seen during hospitalization in October 2015 and was treated for urinary tract infection with ESBL E. coli and enterococcus as well as varicella-zoster. Patient states that she has not been feeling well for a while and has been on IV Azactam at home for 11 days that was ordered by her primary care physician Dr. santiago her off for urinary tract infection and upper respiratory infection. She states that has not helped at all. She states she has had shortness of breath for 2-3 weeks and just continues to worsen. She feels like her right bronchial tube is contracted. She has a cough that started yesterday and tightness in her chest. She gives history of having asthma in the past and has a nebulizer without any improvement with use. Over the weekend she noticed blood in her urine as well as burning but patient does have a chronic Stallings catheter in place which she states was just changed Sunday of last week. She states that yesterday she was feeling cold and chilled. She denies any nausea vomiting and she is constipated which is chronic. For the past week she' s had decreased food and liquid intake. She came into [facility] emergency center with the above concerns. White count was noted to be 24.7 and repeat 22.3. AST of 75 and ALT 127, alkaline phosphatase 125. Urinalysis was cloudy, blood moderate, leukoesterase large, RBCs 81, WBCs 84, yeast budding many, culture is in process. Patient also has 2 blood cultures obtained from her Garza are showing gram-positive cocci. Her chest x-ray showed possible basilar pneumonia or atelectasis. She was diagnosed with urinary tract infection and exacerbation of COPD and bilateral pneumonia and admitted to the selective care unit. She then became hypotensive and pulse ox was low on BiPAP and she was transferred to the intensive care unit. She is status post fluid bolus and has not required vasopressors. She is followed by Dr. Pizarro for intensive care and pulmonary medicine. Sputum culture is on collected. Patient also complains of a rash to her left dorsal hand which she thinks is due to latex close which she uses to flush her Garza. She states she also has this on her right hand from time to time. She denies having any decubitus ulcers. Patient is currently living at home and she does have nurse aides through the day. She has a hospital bed with air mattress and trapeze, Summer lift, electric wheelchair, BiPAP, nebulizer and home oxygen at 2 L. Patient is a functional quadriplegic. Patient is improved and is moved out of the intensive care unit. Is feeling slightly better. Objective - Vital Signs Vital signs: Vital Signs Temp 99.4 F 06/16/16 15:00 Pulse 92 06/16/16 20:02 Resp 20 06/16/16 15:00 BP 153/71 06/16/16 15:00 Pulse Ox 94 L 06/16/16 15:00 Intake & Output 06/16/16 06/16/16 06/17/16 06:59 18:59 06:59 Intake Total 240 Output Total 200 Balance 40 Weight 139.5 kg Intake: Oral 240 Output: Urine 200 Other: Voiding Method Indwelling Catheter Indwelling Catheter # Voids 2 # Bowel Movements 1 - Exam en: This is a super morbid obese 65-year-old female appears to be comfortable and in no distress. Complains of bouts of sweating HEENT: Head is atraumatic, normocephalic. Pupils equal, round. Sclerae is anicteric. Conjunctiva slightly pale. Oral mucous membranes slightly dry. No thrush noted. NECK: Short and thick. Supple. No JVD. No lymphadenopathy. No thyromegaly. LUNGS: Diminished at the bases with inspiratory and expiratory wheezes. Crackles at the bases. No nancy bronchial sounds. HEART: Regular rate and rhythm. No murmur. Right subclavian Garza catheter in place. ABDOMEN: Morbidly obese. Soft. Bowel sounds are present. No masses. No tenderness. Stallings catheter draining manny urine. EXTREMITIES: 1+ pedal edema bilateral. Dorsalis pedis 1+ bilaterally. NEUROLOGICAL: Patient is awake, alert and oriented x3. Is generalized lower extremity paresis does complain of some discomfort to her buttocks - Labs CBC & Chem 7: 06/14/16 04:36 06/14/16 04:36 Labs: Abnormal Lab Results - Last 24 Hours (Table) 06/15/16 06/16/16 06/16/16 Range/Units 23:15 07:05 11:32 POC Glucose (mg/dL) 138 H 125 H 184 H (75-99) mg/dL 06/16/16 Range/Units 17:20 POC Glucose (mg/dL) 106 H (75-99) mg/dL Microbiology - Last 24 Hours (Table) 06/13/16 10:10 Blood Culture - Preliminary Blood No Growth after 72 hours 06/13/16 10:46 Blood Culture - Preliminary Blood No Growth after 72 hours 06/15/16 21:14 Gram Stain - Preliminary Sputum Laboratory Results WBC 14.7 k/uL (3.8-10.6) H 06/14/16 04:36 RBC 3.29 m/uL (3.80-5.40) L 06/14/16 04:36 Hgb 9.8 gm/dL (11.4-16.0) L 06/14/16 04:36 Hct 31.8 % (34.0-46.0) L 06/14/16 04:36 MCV 96.5 fL (80.0-100.0) 06/14/16 04:36 MCH 29.8 pg (25.0-35.0) 06/14/16 04:36 MCHC 30.9 g/dL (31.0-37.0) L 06/14/16 04:36 RDW 15.4 % (11.5-15.5) 06/14/16 04:36 Plt Count 317 k/uL (150-450) 06/14/16 04:36 Neutrophils % 85 % 06/14/16 04:36 Lymphocytes % 10 % 06/14/16 04:36 Monocytes % 3 % 06/14/16 04:36 Eosinophils % 2 % 06/14/16 04:36 Basophils % 0 % 06/14/16 04:36 Neutrophils # 12.5 k/uL (1.3-7.7) H 06/14/16 04:36 Lymphocytes # 1.4 k/uL (1.0-4.8) 06/14/16 04:36 Monocytes # 0.5 k/uL (0-1.0) 06/14/16 04:36 Eosinophils # 0.2 k/uL (0-0.7) 06/14/16 04:36 Basophils # 0.0 k/uL (0-0.2) 06/14/16 04:36 Hypochromasia Slight 06/14/16 04:36 Macrocytosis Slight 06/13/16 04:16 PT 10.9 sec (9.0-12.0) 06/12/16 15:30 INR 1.1 (<1.1) 06/12/16 15:30 APTT 23.0 sec (22.0-30.0) 06/12/16 15:30 Sodium 140 mmol/L (137-145) 06/14/16 04:36 Potassium 4.1 mmol/L (3.5-5.1) 06/14/16 04:36 Chloride 102 mmol/L (98-107) 06/14/16 04:36 Carbon Dioxide 28 mmol/L (22-30) 06/14/16 04:36 Anion Gap 10 mmol/L 06/14/16 04:36 BUN 30 mg/dL (7-17) H 06/14/16 04:36 Creatinine 1.00 mg/dL (0.52-1.04) 06/14/16 04:36 Est GFR (MDRD) Af Amer >60 (>60 ml/min/1.73 sqM) 06/14/16 04:36 Est GFR (MDRD) Non-Af 56 (>60 ml/min/1.73 sqM) 06/14/16 04:36 Glucose 111 mg/dL (74-99) H 06/14/16 04:36 POC Glucose (mg/dL) 106 mg/dL (75-99) H 06/16/16 17:20 POC Glu Process Manufacturing Engineer ID Nidhi Shafer 06/16/16 17:20 Plasma Lactic Acid Kvng 2.0 mmol/L (0.7-2.0) 06/12/16 18:12 Calcium 8.8 mg/dL (8.4-10.2) 06/14/16 04:36 Phosphorus 2.9 mg/dL (2.5-4.5) 06/14/16 04:36 Magnesium 2.6 mg/dL (1.6-2.3) H 06/14/16 04:36 Total Bilirubin 0.5 mg/dL (0.2-1.3) 06/12/16 15:30 AST 75 U/L (14-36) H 06/12/16 15:30 ALT 127 U/L (9-52) H 06/12/16 15:30 Alkaline Phosphatase 125 U/L (38-126) 06/12/16 15:30 Total Creatine Kinase 30 U/L (30-135) 06/12/16 15:30 CK-MB (CK-2) 0.7 ng/mL (0.0-2.4) 06/12/16 15:30 CK-MB (CK-2) Rel Index 2.3 06/12/16 15:30 Troponin I <0.012 ng/mL (0.000-0.034) 06/12/16 15:30 NT-Pro-B Natriuret Pep 198 pg/mL 06/12/16 15:30 Total Protein 7.4 g/dL (6.3-8.2) 06/12/16 15:30 Albumin 4.2 g/dL (3.5-5.0) 06/12/16 15:30 TSH 1.540 mIU/L (0.465-4.680) 06/12/16 15:30 Urine Color Yellow 06/12/16 19:20 Urine Appearance Cloudy (Clear) H 06/12/16 19:20 Urine pH 5.0 (5.0-8.0) 06/12/16 19:20 Ur Specific [place] 1.010 (1.001-1.035) 06/12/16 19:20 Urine Protein Negative (Negative) 06/12/16 19:20 Urine Glucose (UA) Negative (Negative) 06/12/16 19:20 Urine Ketones Negative (Negative) 06/12/16 19:20 Urine Blood Moderate (Negative) H 06/12/16 19:20 Urine Nitrate Negative (Negative) 06/12/16 19:20 Urine Bilirubin Negative (Negative) 06/12/16 19:20 Urine Urobilinogen <2.0 mg/dL (<2.0) 06/12/16 19:20 Ur Leukocyte Esterase Large (Negative) H 06/12/16 19:20 Urine RBC 81 /hpf (0-5) H 06/12/16 19:20 Urine WBC 84 /hpf (0-5) H 06/12/16 19:20 Ur Squamous Epith Cells 1 /hpf (0-4) 06/12/16 19:20 Amorphous Sediment Rare /hpf (None) H 06/12/16 19:20 Hyaline Casts 29 /lpf (0-2) H 06/12/16 19:20 Urine Mucus Few /hpf (None) H 06/12/16 19:20 Urine Yeast (Budding) Many /hpf (None) H 06/12/16 19:20 Vancomycin Trough 20.0 ug/mL 06/15/16 22:02 Influenza Type A RNA Not Detected (Not Detectd) 06/13/16 20:20 Influenza Type B (PCR) Not Detected (Not Detectd) 06/13/16 20:20 Microbiology 06/13/16 10:10 Blood Blood Culture - Preliminary No Growth after 72 hours 06/13/16 10:46 Blood Blood Culture - Preliminary No Growth after 72 hours 06/12/16 16:13 Blood Blood Culture Gram Stain - Final 06/12/16 16:13 Blood Blood Culture - Final Streptococcus pneumoniae 06/15/16 21:14 Sputum Gram Stain - Preliminary 06/12/16 19:20 Urine,Catheterized Urine Culture - Final Enterococcus faecalis Mame albicans 06/12/16 16:13 Blood Blood Culture - Preliminary Assessment and Plan (1) Pneumonia Narrative/Plan: 65-year-old woman who suffers from superobesity presents to Hospital with a many day history of shortness of breath. He treated the outpatient setting with Azactam. Despite this she continued to worsen. She has evidence at this point in time of enterococcus in her urinary system. There is also evidence of a gram-positive cocci which appears to be streptococcus from her blood culture. Of note Azactam would have coverage of neither of these pathogens. Receiving Zosyn therapy and is considerably improved. Is also receiving vancomycin pending the final identification of the blood culture. Final blood culture has now become available. It does appear to be Streptococcus pneumoniae. It is not drug-resistant. [facility] van[facility] therapy is discontinued. The plan on 10 further days of intravenous antibiotic therapy was Zosyn to complete the treatment course of her pneumonia that was bacteremic as well as treatment of her urinary tract infection. With Streptococcus pneumoniae being isolated would not need to remove her current intravenous tunneled catheter Status: Acute (2) Streptococcal bacteremia Status: Acute (3) Enterococcus UTI Status: Acute
[2016-06-16 21:17] LABS: Glucose,Whole Blood 156 mg/dL (75-99)
[2016-06-16] MEDS: metFORMIN 500 MG TAB PO SCH (22:16)
[2016-06-16] MEDS: ASPIRIN 81 MG CHEW PO SCH (22:17)
[2016-06-16] MEDS ORDERED: ERGOCALCIFEROL 50,000 UNIT CAP PO SCH (23:00)
[2016-06-17] MEDS: SODIUM CHLORIDE 0.9% 1,000 ML IV SCH ×2 (01:02→20:01)
[2016-06-17] MEDS: PIPERACILLIN-TAZOBACTAM 3.375 GM in DEXTROSE/WATER 1 50ML.BAG IVPB SCH ×3 (04:43→19:54)
[2016-06-17] MEDS: HYDROcodone/APAP 5-325MG 1 EACH TAB PO PRN ×2 (06:27→21:53)
[2016-06-17] MEDS: METOCLOPRAMIDE 10 MG TAB PO SCH ×2 (06:32→21:53)
[2016-06-17 07:12] LABS: Glucose,Whole Blood 129 mg/dL (75-99)
[2016-06-17] MEDS: PANTOPRAZOLE 40 MG TABLET PO SCH (07:54)
[2016-06-17] MEDS: GABAPENTIN 300 MG CAP PO SCH ×2 (07:55→21:52)
[2016-06-17] MEDS: CITALOPRAM HYDROBROMIDE 10 MG TAB PO SCH (07:55)
[2016-06-17] MEDS: ENOXAPARIN 40 MG/0.4 ML SYRINGE SQ SCH (07:55)
[2016-06-17] MEDS: BACLOFEN 10 MG TAB PO SCH ×2 (07:55→20:00)
[2016-06-17] MEDS: FUROSEMIDE 40 MG TAB PO SCH ×2 (07:55→20:00)
[2016-06-17] MEDS: MELOXICAM 7.5 MG TAB PO SCH (07:56)
[2016-06-17] MEDS: MONTELUKAST 10 MG TAB PO SCH (07:56)
[2016-06-17] MEDS: SENNOSIDES 8.6 MG TAB PO SCH ×2 (07:56→20:00)
[2016-06-17] MEDS: SPIRONOLACTONE 25 MG TAB PO SCH ×2 (07:57→20:00)
[2016-06-17] MEDS: guaiFENesin 600 MG TABLET.ER PO SCH ×2 (08:00→20:00)
[2016-06-17] MEDS: IPRATROPIUM-ALBUTEROL 3 ML NEB INHALATION SCH ×4 (08:05→19:23)
[2016-06-17 08:59] LABS: Basophils # (A) 0.1 k/uL (0-0.2); Basophils % (A) 1 %; CH 29.9; CHCM 30.8; Eosinophils # (A) 0.3 k/uL (0-0.7); Eosinophils % (A) 3 %; HCT 32.3 % (34.0-46.0); HDW 2.62; Hypochromasia Slight; Luc # (Auto) 0.25; Luc % (Auto) 3; Lymphocytes # (A) 1.5 k/uL (1.0-4.8); Lymphocytes % (A) 16 %; MCH 30.3 pg (25.0-35.0); MCV 97.7 fL (80.0-100.0); Mean Platelet Volume 8.3; Monocytes # (A) 0.4 k/uL (0-1.0); Monocytes % (A) 4 %; Neutrophils # (A) 7.4 k/uL (1.3-7.7); Neutrophils % (A) 74 %; RBC 3.31 m/uL (3.80-5.40); RDW 15.3 % (11.5-15.5); WBC 9.9 k/uL (3.8-10.6); WBC (Perox) 10.43
[2016-06-17 09:19] LABS: Anion Gap 13 mmol/L; Blood Urea Nitrogen 32 mg/dL (7-17); Calcium 9.2 mg/dL (8.4-10.2); Carbon Dioxide 29 mmol/L (22-30); Chloride 103 mmol/L (98-107); Glucose 180 mg/dL (74-99); Non-African American GFR(MDRD) 53 (>60 ml/min/1.73 sqM); Potassium 4.3 mmol/L (3.5-5.1); Sodium 145 mmol/L (137-145)
[2016-06-17 11:51] LABS: Glucose,Whole Blood 103 mg/dL (75-99)
--- NOTE | 2016-06-17 14:57 | PN ---
Patient is admitted with ( ) and bacteremia ( ) and patient also has urinary tract infection with enterococcus. Patient is on Zosyn at this point of time with significant clinical improvement. Patient is complaining of cough. REVIEW OF SYSTEMS: CARDIOVASCULAR: No chest pain, no orthopnea, no PND, no palpitations. PULMONARY: Complaining of severe cough and greenish sputum production. GASTROINTESTINAL: No diarrhea, nausea or vomiting. No abdominal pain. Normoactive bowel sounds. NEUROLOGIC: No headaches, no weakness, no numbness. Medications were reviewed. Patient is off vancomycin. PHYSICAL EXAMINATION: VITAL SIGNS: Temperature 99.5, pulse of 96, respiratory rate of 18, blood pressure 143/83, saturating at 94% 3 L O2 by nasal cannula. GENERAL: Morbidly obese alert at x3. Extremities: Patient has ant bandages in place and patient does have paraplegia without any new focal deficits. HEENT: Pupils are round and equally reacting to light. EOMI. No scleral icterus. No conjunctival pallor. Normocephalic, atraumatic. No pharyngeal erythema. No thyromegaly. CARDIOVASCULAR: S1 and S2 present. No murmurs, rubs, or gallops. PULMONARY: Chest is clear to auscultation, no wheezing or crackles. ABDOMEN: Soft, nontender, nondistended, normoactive bowel sounds. No palpable organomegaly. MUSCULOSKELETAL: No joint swelling or deformity. EXTREMITIES: No cyanosis, clubbing, or pedal edema. NEUROLOGICAL: Gross neurological examination did not reveal any focal deficits. SKIN: No rashes. LABORATORY DATA: CBC, CMP are abnormal for elevated creatinine 1.05, BUN of 32. ASSESSMENT AND PLAN: 1. Bibasilar pneumonia leading to bacteremia and sepsis secondary to strep pneumonia and patient is on antibiotics as mentioned above. 2. Urinary tract infection with enterococcus for both organisms. Zosyn is good and patient is on Zosyn and infectious disease following the patient. 3. Morbid obesity. 4. Paraplegia secondary to spinal surgery in the past. 5. Type 2 diabetes mellitus on oral hypoglycemic agents. 6. Fibromyalgia. 7. Gastroesophageal reflux disease. 8. Hyperlipidemia. 9. Essential hypertension. 10. Osteoarthritis. 11. Urinary incontinence. PLAN: Continue with present medications. We will repeat electrolytes and labs tomorrow. Close clinical monitoring. Possibility of discharge to home with a PICC line. Total duration of antibiotics Zosyn is about 10 days as per recommendation from Dr. Cannon.
[2016-06-17 16:44] LABS: Glucose,Whole Blood 117 mg/dL (75-99)
[2016-06-17 19:38] LABS: Glucose,Whole Blood 149 mg/dL (75-99)
[2016-06-17] MEDS: metFORMIN 500 MG TAB PO SCH (19:54)
[2016-06-17] MEDS: ASPIRIN 81 MG CHEW PO SCH (20:00)
[2016-06-17 21:04] LABS: Glucose,Whole Blood 167 mg/dL (75-99)
[2016-06-18] MEDS: PIPERACILLIN-TAZOBACTAM 3.375 GM in DEXTROSE/WATER 1 50ML.BAG IVPB SCH ×3 (03:49→20:13)
[2016-06-18 07:04] LABS: Glucose,Whole Blood 135 mg/dL (75-99)
[2016-06-18] MEDS: MELOXICAM 7.5 MG TAB PO SCH (07:54)
[2016-06-18] MEDS: SENNOSIDES 8.6 MG TAB PO SCH ×2 (07:54→22:17)
[2016-06-18] MEDS: ENOXAPARIN 40 MG/0.4 ML SYRINGE SQ SCH (07:55)
[2016-06-18] MEDS: PANTOPRAZOLE 40 MG TABLET PO SCH (07:55)
[2016-06-18] MEDS: CITALOPRAM HYDROBROMIDE 10 MG TAB PO SCH (07:55)
[2016-06-18] MEDS: BACLOFEN 10 MG TAB PO SCH ×2 (07:55→20:15)
[2016-06-18] MEDS: FUROSEMIDE 40 MG TAB PO SCH ×2 (07:55→20:15)
[2016-06-18] MEDS: MONTELUKAST 10 MG TAB PO SCH (07:55)
[2016-06-18] MEDS: guaiFENesin 600 MG TABLET.ER PO SCH ×2 (07:55→20:15)
[2016-06-18] MEDS: GABAPENTIN 300 MG CAP PO SCH ×2 (07:55→22:16)
[2016-06-18] MEDS: METOCLOPRAMIDE 10 MG TAB PO SCH ×2 (07:55→22:16)
[2016-06-18] MEDS: IPRATROPIUM-ALBUTEROL 3 ML NEB INHALATION SCH ×4 (08:00→19:21)
[2016-06-18] MEDS: SPIRONOLACTONE 25 MG TAB PO SCH ×2 (09:03→20:15)
--- NOTE | 2016-06-18 09:03 | XR ---
EXAMINATION TYPE: XR chest 1V DATE OF EXAM: 06/18/2016 7:00 AM COMPARISON: 06/15/2016 INDICATION: Pneumonia TECHNIQUE: Single frontal view of the chest is obtained. FINDINGS: The heart size is normal. The pulmonary vasculature is normal. The lungs are clear. Port is present on the right with the tip in superior vena cava region. IMPRESSION: 1. No acute pulmonary process.
[2016-06-18 09:05] LABS: CH 29.7; CHCM 30.6; HCT 33.1 % (34.0-46.0); HDW 2.64; HGB 10.2 gm/dL (11.4-16.0); Hypochromasia Moderate; MCH 29.9 pg (25.0-35.0); MCHC 30.7 g/dL (31.0-37.0); MCV 97.3 fL (80.0-100.0); Mean Platelet Volume 7.4; RDW 15.3 % (11.5-15.5); WBC 10.8 k/uL (3.8-10.6)
[2016-06-18 09:35] LABS: Anion Gap 12 mmol/L; Blood Urea Nitrogen 31 mg/dL (7-17); Calcium 9.3 mg/dL (8.4-10.2); Carbon Dioxide 30 mmol/L (22-30); Chloride 102 mmol/L (98-107); Glucose 221 mg/dL (74-99); Non-African American GFR(MDRD) 53 (>60 ml/min/1.73 sqM); Potassium 4.2 mmol/L (3.5-5.1); Sodium 144 mmol/L (137-145)
[2016-06-18 12:13] LABS: Glucose,Whole Blood 115 mg/dL (75-99)
--- NOTE | 2016-06-18 15:23 | P.PN ---
Subjective Principal diagnosis: Patient is admitted with ( ) and bacteremia ( ) and patient also has urinary tract infection with enterococcus. Patient is on Zosyn at this point of time with significant clinical improvement. Patient is complaining of cough. REVIEW OF SYSTEMS: CARDIOVASCULAR: No chest pain, no orthopnea, no PND, no palpitations. PULMONARY: Complaining of severe cough and greenish sputum production. GASTROINTESTINAL: No diarrhea, nausea or vomiting. No abdominal pain. Normoactive bowel sounds. NEUROLOGIC: No headaches, no weakness, no numbness. Medications were reviewed. Patient is off vancomycin. PHYSICAL EXAMINATION: GENERAL: Morbidly obese alert at x3. Extremities: Patient has ant bandages in place and patient does have paraplegia without any new focal deficits. HEENT: Pupils are round and equally reacting to light. EOMI. No scleral icterus. No conjunctival pallor. Normocephalic, atraumatic. No pharyngeal erythema. No thyromegaly. CARDIOVASCULAR: S1 and S2 present. No murmurs, rubs, or gallops. PULMONARY: Chest is clear to auscultation, no wheezing or crackles. ABDOMEN: Soft, nontender, nondistended, normoactive bowel sounds. No palpable organomegaly. MUSCULOSKELETAL: No joint swelling or deformity. EXTREMITIES: No cyanosis, clubbing, or pedal edema. NEUROLOGICAL: Gross neurological examination did not reveal any focal deficits. SKIN: No rashes. LABORATORY DATA: CBC, CMP are abnormal for elevated creatinine 1.05, BUN of 32. ASSESSMENT AND PLAN: 1. Bibasilar pneumonia leading to bacteremia and sepsis secondary to strep pneumonia and patient is on antibiotics as mentioned above. 2. Urinary tract infection with enterococcus for both organisms. Zosyn is good and patient is on Zosyn and infectious disease following the patient. 3. Morbid obesity. 4. Paraplegia secondary to spinal surgery in the past. 5. Type 2 diabetes mellitus on oral hypoglycemic agents. 6. Fibromyalgia. 7. Gastroesophageal reflux disease. 8. Hyperlipidemia. 9. Essential hypertension. 10. Osteoarthritis. 11. Urinary incontinence. PLAN: Continue with present medications. We will repeat electrolytes and labs tomorrow. Close clinical monitoring. Possibility of discharge to home with a PICC line. Total duration of antibiotics Zosyn is about 10 days as per recommendation from Dr. Cannon. Objective - Vital Signs Vital signs: Vital Signs Temp 98.1 F 06/18/16 07:00 Pulse 92 03/05/17 11:26 Resp 16 06/18/16 07:00 BP 138/73 06/18/16 07:00 Pulse Ox 94 L 06/18/16 08:00 Intake & Output 06/17/16 06/18/16 06/18/16 18:59 06:59 18:59 Intake Total 500 200 Output Total 400 Balance 100 200 Weight 145.5 kg Intake: Oral 500 200 Output: Urine 400 Other: Voiding Method Indwelling Catheter Indwelling Catheter Indwelling Catheter # Voids 1 2 # Bowel Movements 1 - Labs CBC & Chem 7: 06/18/16 08:53 06/18/16 08:53 Labs: Abnormal Lab Results - Last 24 Hours (Table) 06/17/16 06/17/16 06/17/16 Range/Units 16:42 19:26 21:02 WBC (3.8-10.6) k/uL RBC (3.80-5.40) m/uL Hgb (11.4-16.0) gm/dL Hct (34.0-46.0) % MCHC (31.0-37.0) g/dL BUN (7-17) mg/dL Creatinine (0.52-1.04) mg/dL Glucose (74-99) mg/dL POC Glucose (mg/dL) 117 H 149 H 167 H (75-99) mg/dL 06/18/16 06/18/16 06/18/16 Range/Units 07:02 08:53 08:53 WBC 10.8 H (3.8-10.6) k/uL RBC 3.40 L (3.80-5.40) m/uL Hgb 10.2 L (11.4-16.0) gm/dL Hct 33.1 L (34.0-46.0) % MCHC 30.7 L (31.0-37.0) g/dL BUN 31 H (7-17) mg/dL Creatinine 1.05 H (0.52-1.04) mg/dL Glucose 221 H (74-99) mg/dL POC Glucose (mg/dL) 135 H (75-99) mg/dL 06/18/16 Range/Units 12:01 WBC (3.8-10.6) k/uL RBC (3.80-5.40) m/uL Hgb (11.4-16.0) gm/dL Hct (34.0-46.0) % MCHC (31.0-37.0) g/dL BUN (7-17) mg/dL Creatinine (0.52-1.04) mg/dL Glucose (74-99) mg/dL POC Glucose (mg/dL) 115 H (75-99) mg/dL Microbiology - Last 24 Hours (Table) 06/13/16 10:10 Blood Culture - Preliminary Blood No Growth after 120 hours 06/13/16 10:46 Blood Culture - Preliminary Blood No Growth after 120 hours 06/15/16 21:14 Gram Stain - Final Sputum Sputum Culture - Final Mame albicans
[2016-06-18 17:05] LABS: Glucose,Whole Blood 119 mg/dL (75-99)
[2016-06-18 20:14] LABS: Glucose,Whole Blood 171 mg/dL (75-99)
[2016-06-18] MEDS: metFORMIN 500 MG TAB PO SCH (20:14)
[2016-06-18] MEDS: ASPIRIN 81 MG CHEW PO SCH (20:14)
[2016-06-18] MEDS: SODIUM CHLORIDE 0.9% 1,000 ML IV SCH (22:22)
[2016-06-19 01:09] VITALS: RESP 16
[2016-06-19] MEDS: PIPERACILLIN-TAZOBACTAM 3.375 GM in DEXTROSE/WATER 1 50ML.BAG IVPB SCH ×3 (03:47→20:18)
[2016-06-19] MEDS: HYDROcodone/APAP 5-325MG 1 EACH TAB PO PRN ×2 (04:17→17:01)
[2016-06-19 05:37] LABS: CH 29.6; CHCM 30.5; HDW 2.69; HGB 9.6 gm/dL (11.4-16.0); Hypochromasia Moderate; MCH 30.3 pg (25.0-35.0); MCHC 31.1 g/dL (31.0-37.0); MCV 97.4 fL (80.0-100.0); Mean Platelet Volume 7.6; RBC 3.18 m/uL (3.80-5.40); RDW 15.3 % (11.5-15.5); WBC 8.6 k/uL (3.8-10.6)
[2016-06-19 05:50] LABS: Anion Gap 10 mmol/L; Blood Urea Nitrogen 32 mg/dL (7-17); Calcium 9.1 mg/dL (8.4-10.2); Carbon Dioxide 31 mmol/L (22-30); Chloride 102 mmol/L (98-107); Glucose 161 mg/dL (74-99); Non-African American GFR(MDRD) 50 (>60 ml/min/1.73 sqM); Potassium 4.2 mmol/L (3.5-5.1); Sodium 143 mmol/L (137-145)
[2016-06-19 07:12] LABS: Glucose,Whole Blood 139 mg/dL (75-99)
[2016-06-19] MEDS: IPRATROPIUM-ALBUTEROL 3 ML NEB INHALATION SCH ×4 (07:23→20:58)
[2016-06-19] MEDS: guaiFENesin 600 MG TABLET.ER PO SCH ×2 (08:59→20:19)
[2016-06-19] MEDS: ENOXAPARIN 40 MG/0.4 ML SYRINGE SQ SCH (08:59)
[2016-06-19] MEDS: GABAPENTIN 300 MG CAP PO SCH ×2 (09:00→20:19)
[2016-06-19] MEDS: MONTELUKAST 10 MG TAB PO SCH (09:00)
[2016-06-19] MEDS: FUROSEMIDE 40 MG TAB PO SCH ×2 (09:00→20:19)
[2016-06-19] MEDS: CITALOPRAM HYDROBROMIDE 10 MG TAB PO SCH (09:01)
[2016-06-19] MEDS: BACLOFEN 10 MG TAB PO SCH ×2 (09:01→20:19)
[2016-06-19] MEDS: SENNOSIDES 8.6 MG TAB PO SCH ×2 (09:01→20:19)
[2016-06-19] MEDS: SPIRONOLACTONE 25 MG TAB PO SCH ×2 (09:01→20:19)
[2016-06-19] MEDS: PANTOPRAZOLE 40 MG TABLET PO SCH ×2 (09:02→18:05)
[2016-06-19] MEDS: MELOXICAM 7.5 MG TAB PO SCH (09:02)
[2016-06-19] MEDS: METOCLOPRAMIDE 10 MG TAB PO SCH ×2 (09:02→20:19)
[2016-06-19 10:50] VITALS: BMI 63.3
--- NOTE | 2016-06-19 15:23 | P.DS ---
Providers Date of admission: 06/12/16 16:45 Expected date of discharge: 06/19/16 Attending physician: Dony Garcia Consults: Final Diagnoses: 1. Bibasilar strep pneumonia leading to bacteremia and sepsis 2. UTI with enteric coccus 3. Morbid obesity, BMI 63.3 4. 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 Diabetes mellitus type 2 6. Fibromyalgia 7. Gastroesophageal reflux disease 8. Hyperlipidemia 9. Essential hypertension 10. Osteoarthritis 11. Urinary incontinence Hospital course Primary care physician: Raymond Andrade Hospital Course: Final Diagnoses: 1. Bibasilar pneumonia leading to bacteremia and sepsis secondary to strept. pneumoniae 2. UTI with enterococcus 3. Morbid obesity, BMI 63.3 4. Paraplegic secondary to history of spinal surgery 5. Diabetes mellitus type 2 6. Fibromyalgia 7. Gastroesophageal reflux disease 8. Hyperlipidemia 9. Essential hypertension 10. Osteoarthritis 11. Urinary incontinence Hospital course: This is 65-year-old female admitted with bibasilar pneumonia, Streptococcus pneumonia bacteremia, sepsis, UTI with enterococcus and multiple other medical issues. Evaluated by a proposal coordinator and infectious disease. Intent on IV antibiotics, currently Zosyn with significant clinical improvement. Repeat blood cultures negative. Patient has been cleared for discharge by all consults and being discharged home in a stable condition with guarded prognosis on IV antibiotics. Microbiology 06/13/16 10:10 Blood Blood Culture - Final No Growth after 144 hours 06/13/16 10:46 Blood Blood Culture - Final No Growth after 144 hours 06/15/16 21:14 Sputum Gram Stain - Final 06/15/16 21:14 Sputum Sputum Culture - Final Mame albicans 06/12/16 16:13 Blood Blood Culture Gram Stain - Final 06/12/16 16:13 Blood Blood Culture - Final Streptococcus pneumoniae 06/12/16 19:20 Urine,Catheterized Urine Culture - Final Enterococcus faecalis Mame albicans 06/12/16 16:13 Blood Blood Culture - Preliminary Patient Condition at Discharge: Stable Plan - Discharge Summary New Discharge Prescriptions: Piperacillin-Tazobactam [Zosyn] 3.375 gm IVPB Q6H #28 bag Discharge Medication List Ascorbic Acid [Vitamin C] 1,000 mg PO DAILY@1200 10/22/13 [History] Aspirin 81 mg PO HS 10/22/13 [History] Baclofen [Lioresal] 10 mg PO BID 10/22/13 [History] Budesonide-Formot 160-4.5 Mcg [Symbicort 160-4.5 Mcg Inhaler] 2 puff INHALATION RT-BID 10/22/13 [History] Celecoxib [CeleBREX] 200 mg PO QAM 10/22/13 [History] Cetirizine HCl [Zyrtec] 10 mg PO QAM 10/22/13 [History] Furosemide [Lasix] 40 mg PO BID 10/22/13 [History] Montelukast Sodium [Singulair] 10 mg PO QAM 10/22/13 [History] Omeprazole [PriLOSEC] 20 mg PO HS 10/22/13 [History] Spironolactone [Aldactone] 25 mg PO BID 10/22/13 [History] Cyanocobalamin [Vitamin B-12] 1,000 mcg PO Q48H 10/18/15 [History] Ergocalciferol [Vitamin D2 (DRISDOL)] 50,000 unit PO FR 10/18/15 [History] Ferrous Sulfate, Dried [Slow Release Iron] 159 mg PO DAILY@1200 10/18/15 [ History] Sennosides [Senna] 17.2 mg PO BID 10/18/15 [History] Gabapentin [Neurontin] 300 mg PO BID cap 10/27/15 [Rx] Ipratropium-Albuterol Nebulize [Duoneb 0.5 mg-3 mg/3 ml Soln] 3 ml INHALATION RT -QID ampul.neb 10/27/15 [Rx] Albuterol Inhaler [Ventolin Hfa Inhaler] 2 puff INHALATION RT-QID PRN 06/12/16 [ History] Citalopram Hydrobromide [CeleXA] 10 mg PO QAM 06/12/16 [History] HYDROcodone/APAP 5-325MG [[place] 5-325] 1 tab PO Q8H PRN 06/12/16 [History] metFORMIN HCL [Glucophage] 2,000 mg PO DAILY@199906/12/16 [History] predniSONE 20 mg PO DAILY 06/12/16 [History] Metoclopramide HCl [Reglan] 5 mg PO 0730,2100 06/14/16 [History] Piperacillin-Tazobactam [Zosyn] 3.375 gm IVPB Q6H #28 bag 06/19/16 [Rx] Follow up Appointment(s)/Referral(s): William Cannon MD [STAFF PHYSICIAN] - 10 Days Raymond Andrade MD [Primary Care Provider] - 3 Days Ambulatory/Diagnostic Orders: Basic Metabolic Panel [LAB.AMB] Location: Determined By Patient Complete Blood Count w/diff [LAB.AMB] Location: Determined By Patient Patient Instructions/Handouts: Type 2 Diabetes in Adults (DC), Catheter- associated Urinary Tract Infection (DC) Activity/Diet/Wound Care/Special Instructions: [facility]: #[phone]
--- NOTE | 2016-06-19 17:47 | P.PN ---
Subjective Principal diagnosis: Pneumonia This is a 65-year-old female who is known to ID services as she was seen in October 2013 and was treated for ESBL E. coli urinary tract infection patient is noted to have multiple ALLERGIES including meropenem the causes an anaphylactic reaction as well as Keflex. She was also seen during hospitalization in October 2015 and was treated for urinary tract infection with ESBL E. coli and enterococcus as well as varicella-zoster. Patient states that she has not been feeling well for a while and has been on IV Azactam at home for 11 days that was ordered by her primary care physician Dr. santiago her off for urinary tract infection and upper respiratory infection. She states that has not helped at all. She states she has had shortness of breath for 2-3 weeks and just continues to worsen. She feels like her right bronchial tube is contracted. She has a cough that started yesterday and tightness in her chest. She gives history of having asthma in the past and has a nebulizer without any improvement with use. Over the weekend she noticed blood in her urine as well as burning but patient does have a chronic Stallings catheter in place which she states was just changed Sunday of last week. She states that yesterday she was feeling cold and chilled. She denies any nausea vomiting and she is constipated which is chronic. For the past week she' s had decreased food and liquid intake. She came into [facility] emergency center with the above concerns. White count was noted to be 24.7 and repeat 22.3. AST of 75 and ALT 127, alkaline phosphatase 125. Urinalysis was cloudy, blood moderate, leukoesterase large, RBCs 81, WBCs 84, yeast budding many, culture is in process. Patient also has 2 blood cultures obtained from her Garza are showing gram-positive cocci. Her chest x-ray showed possible basilar pneumonia or atelectasis. She was diagnosed with urinary tract infection and exacerbation of COPD and bilateral pneumonia and admitted to the selective care unit. She then became hypotensive and pulse ox was low on BiPAP and she was transferred to the intensive care unit. She is status post fluid bolus and has not required vasopressors. She is followed by Dr. Pizarro for intensive care and pulmonary medicine. Sputum culture is on collected. Patient also complains of a rash to her left dorsal hand which she thinks is due to latex close which she uses to flush her Garza. She states she also has this on her right hand from time to time. She denies having any decubitus ulcers. Patient is currently living at home and she does have nurse aides through the day. She has a hospital bed with air mattress and trapeze, Summer lift, electric wheelchair, BiPAP, nebulizer and home oxygen at 2 L. Patient is a functional quadriplegic. Patient is improved still has some shortness of breath and is had some GERD symptoms today. Looks forward to going home. Objective - Vital Signs Vital signs: Vital Signs Temp 97.6 F 06/19/16 15:00 Pulse 92 06/19/16 15:33 Resp 16 06/19/16 15:00 BP 137/73 06/19/16 15:00 Pulse Ox 97 06/19/16 15:00 Intake & Output 06/18/16 06/19/16 06/19/16 18:59 06:59 18:59 Intake Total 200 750 Output Total 500 900 600 Balance -300 -900 150 Weight 147 kg 147 kg Intake: Oral 200 750 Output: Urine 500 900 600 Other: Voiding Method Indwelling Catheter Indwelling Catheter Indwelling Catheter # Voids 1 1 # Bowel Movements 2 1 - Exam en: This is a super morbid obese 65-year-old female appears to be comfortable and in no distress. Complains of bouts of sweating HEENT: Head is atraumatic, normocephalic. Pupils equal, round. Sclerae is anicteric. Conjunctiva slightly pale. Oral mucous membranes slightly dry. No thrush noted. NECK: Short and thick. Supple. No JVD. No lymphadenopathy. No thyromegaly. LUNGS: Diminished at the bases with inspiratory and expiratory wheezes. Crackles at the bases. No nancy bronchial sounds. HEART: Regular rate and rhythm. No murmur. Right subclavian Garza catheter in place. ABDOMEN: Morbidly obese. Soft. Bowel sounds are present. No masses. No tenderness. Stallings catheter draining manny urine. EXTREMITIES: 1+ pedal edema bilateral. Dorsalis pedis 1+ bilaterally. NEUROLOGICAL: Patient is awake, alert and oriented x3. Is generalized lower extremity paresis does complain of some discomfort to her buttocks - Labs CBC & Chem 7: 06/19/16 05:30 06/19/16 05:30 Labs: Abnormal Lab Results - Last 24 Hours (Table) 06/18/16 06/19/16 06/19/16 Range/Units 20:12 05:30 05:30 RBC 3.18 L (3.80-5.40) m/uL Hgb 9.6 L (11.4-16.0) gm/dL Hct 31.0 L (34.0-46.0) % Carbon Dioxide 31 H (22-30) mmol/L BUN 32 H (7-17) mg/dL Creatinine 1.10 H (0.52-1.04) mg/dL Glucose 161 H (74-99) mg/dL POC Glucose (mg/dL) 171 H (75-99) mg/dL 06/19/16 Range/Units 06:59 RBC (3.80-5.40) m/uL Hgb (11.4-16.0) gm/dL Hct (34.0-46.0) % Carbon Dioxide (22-30) mmol/L BUN (7-17) mg/dL Creatinine (0.52-1.04) mg/dL Glucose (74-99) mg/dL POC Glucose (mg/dL) 139 H (75-99) mg/dL Microbiology - Last 24 Hours (Table) 06/13/16 10:10 Blood Culture - Final Blood No Growth after 144 hours 06/13/16 10:46 Blood Culture - Final Blood No Growth after 144 hours Laboratory Results WBC 8.6 k/uL (3.8-10.6) 06/19/16 05:30 RBC 3.18 m/uL (3.80-5.40) L 06/19/16 05:30 Hgb 9.6 gm/dL (11.4-16.0) L 06/19/16 05:30 Hct 31.0 % (34.0-46.0) L 06/19/16 05:30 MCV 97.4 fL (80.0-100.0) 06/19/16 05:30 MCH 30.3 pg (25.0-35.0) 06/19/16 05:30 MCHC 31.1 g/dL (31.0-37.0) 06/19/16 05:30 RDW 15.3 % (11.5-15.5) 06/19/16 05:30 Plt Count 327 k/uL (150-450) 06/19/16 05:30 Neutrophils % 74 % 06/17/16 08:45 Lymphocytes % 16 % 06/17/16 08:45 Monocytes % 4 % 06/17/16 08:45 Eosinophils % 3 % 06/17/16 08:45 Basophils % 1 % 06/17/16 08:45 Neutrophils # 7.4 k/uL (1.3-7.7) 06/17/16 08:45 Lymphocytes # 1.5 k/uL (1.0-4.8) 06/17/16 08:45 Monocytes # 0.4 k/uL (0-1.0) 06/17/16 08:45 Eosinophils # 0.3 k/uL (0-0.7) 06/17/16 08:45 Basophils # 0.1 k/uL (0-0.2) 06/17/16 08:45 Hypochromasia Moderate 06/19/16 05:30 Macrocytosis Slight 06/13/16 04:16 PT 10.9 sec (9.0-12.0) 06/12/16 15:30 INR 1.1 (<1.1) 06/12/16 15:30 APTT 23.0 sec (22.0-30.0) 06/12/16 15:30 Sodium 143 mmol/L (137-145) 06/19/16 05:30 Potassium 4.2 mmol/L (3.5-5.1) 06/19/16 05:30 Chloride 102 mmol/L (98-107) 06/19/16 05:30 Carbon Dioxide 31 mmol/L (22-30) H 06/19/16 05:30 Anion Gap 10 mmol/L 06/19/16 05:30 BUN 32 mg/dL (7-17) H 06/19/16 05:30 Creatinine 1.10 mg/dL (0.52-1.04) H 06/19/16 05:30 Est GFR (MDRD) Af Amer >60 (>60 ml/min/1.73 sqM) 06/19/16 05:30 Est GFR (MDRD) Non-Af 50 (>60 ml/min/1.73 sqM) 06/19/16 05:30 Glucose 161 mg/dL (74-99) H 06/19/16 05:30 POC Glucose (mg/dL) 139 mg/dL (75-99) H 06/19/16 06:59 POC Glu Computer Graphic Artist ID Leela Pickering 06/19/16 06:59 Plasma Lactic Acid Kvng 2.0 mmol/L (0.7-2.0) 06/12/16 18:12 Calcium 9.1 mg/dL (8.4-10.2) 06/19/16 05:30 Phosphorus 2.9 mg/dL (2.5-4.5) 06/14/16 04:36 Magnesium 2.6 mg/dL (1.6-2.3) H 06/14/16 04:36 Total Bilirubin 0.5 mg/dL (0.2-1.3) 06/12/16 15:30 AST 75 U/L (14-36) H 06/12/16 15:30 ALT 127 U/L (9-52) H 06/12/16 15:30 Alkaline Phosphatase 125 U/L (38-126) 06/12/16 15:30 Total Creatine Kinase 30 U/L (30-135) 06/12/16 15:30 CK-MB (CK-2) 0.7 ng/mL (0.0-2.4) 06/12/16 15:30 CK-MB (CK-2) Rel Index 2.3 06/12/16 15:30 Troponin I <0.012 ng/mL (0.000-0.034) 06/19/16 11:02 NT-Pro-B Natriuret Pep 198 pg/mL 06/12/16 15:30 Total Protein 7.4 g/dL (6.3-8.2) 06/12/16 15:30 Albumin 4.2 g/dL (3.5-5.0) 06/12/16 15:30 TSH 1.540 mIU/L (0.465-4.680) 06/12/16 15:30 Urine Color Yellow 06/12/16 19:20 Urine Appearance Cloudy (Clear) H 06/12/16 19:20 Urine pH 5.0 (5.0-8.0) 06/12/16 19:20 Ur Specific [place] 1.010 (1.001-1.035) 06/12/16 19:20 Urine Protein Negative (Negative) 06/12/16 19:20 Urine Glucose (UA) Negative (Negative) 06/12/16 19:20 Urine Ketones Negative (Negative) 06/12/16 19:20 Urine Blood Moderate (Negative) H 06/12/16 19:20 Urine Nitrate Negative (Negative) 06/12/16 19:20 Urine Bilirubin Negative (Negative) 06/12/16 19:20 Urine Urobilinogen <2.0 mg/dL (<2.0) 06/12/16 19:20 Ur Leukocyte Esterase Large (Negative) H 06/12/16 19:20 Urine RBC 81 /hpf (0-5) H 06/12/16 19:20 Urine WBC 84 /hpf (0-5) H 06/12/16 19:20 Ur Squamous Epith Cells 1 /hpf (0-4) 06/12/16 19:20 Amorphous Sediment Rare /hpf (None) H 06/12/16 19:20 Hyaline Casts 29 /lpf (0-2) H 06/12/16 19:20 Urine Mucus Few /hpf (None) H 06/12/16 19:20 Urine Yeast (Budding) Many /hpf (None) H 06/12/16 19:20 Vancomycin Trough 20.0 ug/mL 06/15/16 22:02 Influenza Type A RNA Not Detected (Not Detectd) 06/13/16 20:20 Influenza Type B (PCR) Not Detected (Not Detectd) 06/13/16 20:20 Microbiology 06/13/16 10:10 Blood Blood Culture - Final No Growth after 144 hours 06/13/16 10:46 Blood Blood Culture - Final No Growth after 144 hours 06/15/16 21:14 Sputum Gram Stain - Final 06/15/16 21:14 Sputum Sputum Culture - Final Mame albicans 06/12/16 16:13 Blood Blood Culture Gram Stain - Final 06/12/16 16:13 Blood Blood Culture - Final Streptococcus pneumoniae 06/12/16 19:20 Urine,Catheterized Urine Culture - Final Enterococcus faecalis Mame albicans 06/12/16 16:13 Blood Blood Culture - Preliminary Assessment and Plan (1) Pneumonia Narrative/Plan: 65-year-old woman who suffers from superobesity presents to Hospital with a many day history of shortness of breath. He treated the outpatient setting with Azactam. Despite this she continued to worsen. She has evidence at this point in time of enterococcus in her urinary system. There is also evidence of a gram-positive cocci which appears to be streptococcus from her blood culture. Of note Azactam would have coverage of neither of these pathogens. Receiving Zosyn therapy and is considerably improved. Is also receiving vancomycin pending the final identification of the blood culture. Final blood culture has now become available. It does appear to be Streptococcus pneumoniae. It is not drug-resistant. [facility] vancomycin therapy is discontinued. The plan on 7 further days of intravenous antibiotic therapy was Zosyn to complete the treatment course of her pneumonia that was bacteremic as well as treatment of her urinary tract infection. With Streptococcus pneumoniae being isolated would not need to remove her current intravenous tunneled catheter Patient has some GERD. We'll change her proton pump inhibitor to twice a day. Status: Acute (2) Streptococcal bacteremia Status: Acute (3) Enterococcus UTI Status: Acute
[2016-06-19] MEDS ORDERED: SYMBICORT 160-4.5 MCG INHALER INHALATION SCH (20:00)
[2016-06-19] MEDS: ASPIRIN 81 MG CHEW PO SCH (20:19)
[2016-06-19] MEDS: SYMBICORT 160-4.5 MCG INHALER INHALATION SCH (20:58)
[2016-06-19] MEDS: metFORMIN 500 MG TAB PO SCH (21:52)
[2016-06-19] MEDS: SODIUM CHLORIDE 0.9% 1,000 ML IV SCH (22:09)
[2016-06-20] MEDS: PIPERACILLIN-TAZOBACTAM 3.375 GM in DEXTROSE/WATER 1 50ML.BAG IVPB SCH (03:39)
[2016-06-20 07:17] LABS: Glucose,Whole Blood 121 mg/dL (75-99)
[2016-06-20 07:38] VITALS: BP 130/60; TEMP 97.6
[2016-06-20] MEDS: SYMBICORT 160-4.5 MCG INHALER INHALATION SCH (08:04)
[2016-06-20] MEDS: IPRATROPIUM-ALBUTEROL 3 ML NEB INHALATION SCH ×2 (08:04→11:37)
[2016-06-20] MEDS: ENOXAPARIN 40 MG/0.4 ML SYRINGE SQ SCH (08:12)
[2016-06-20] MEDS: PANTOPRAZOLE 40 MG TABLET PO SCH (08:13)
[2016-06-20] MEDS: METOCLOPRAMIDE 10 MG TAB PO SCH (08:13)
[2016-06-20] MEDS: GABAPENTIN 300 MG CAP PO SCH (08:13)
[2016-06-20] MEDS: SENNOSIDES 8.6 MG TAB PO SCH (08:13)
[2016-06-20] MEDS: CITALOPRAM HYDROBROMIDE 10 MG TAB PO SCH (08:13)
[2016-06-20] MEDS: SPIRONOLACTONE 25 MG TAB PO SCH (08:13)
[2016-06-20] MEDS: FUROSEMIDE 40 MG TAB PO SCH (08:13)
[2016-06-20] MEDS: MONTELUKAST 10 MG TAB PO SCH (08:13)
[2016-06-20] MEDS: BACLOFEN 10 MG TAB PO SCH (08:13)
[2016-06-20] MEDS: MELOXICAM 7.5 MG TAB PO SCH (08:13)
[2016-06-20] MEDS: guaiFENesin 600 MG TABLET.ER PO SCH (08:14)
[2016-06-20 08:20] VITALS: PULSE 86
--- NOTE | 2016-06-20 13:03 | P.PN ---
Subjective Date of service 06/19/2016 Progress Note being dictated for Dr. Garcia. Interval history:This is 65-year-old female admitted with bibasilar pneumonia, Streptococcus pneumonia bacteremia, sepsis, UTI with enterococcus and multiple other medical issues. Evaluated by a crystal syrup maker and infectious disease. Continues on IV antibiotics, currently Zosyn with significant clinical improvement. Repeat blood cultures negative. Per ID, current Garza catheter may continue being used secondary to Streptococcus pneumonia isolated.Afebrile. Denies chest pain, palpitations or increasing shortness of breath. Objective - Vital Signs Vital signs: Vital Signs Temp 97.2 F L 06/19/16 07:00 Pulse 92 06/19/16 15:18 Resp 16 06/19/16 08:00 BP 120/71 06/19/16 07:00 Pulse Ox 96 06/19/16 07:26 Intake & Output 06/18/16 06/19/16 06/19/16 18:59 06:59 18:59 Intake Total 200 Output Total 500 900 Balance -300 -900 Weight 147 kg 147 kg Intake: Oral 200 Output: Urine 500 900 Other: Voiding Method Indwelling Catheter Indwelling Catheter Indwelling Catheter # Voids 1 # Bowel Movements 2 - Exam PHYSICAL EXAM: VITAL SIGNS: As above GENERAL: [Sitting up in bed, no acute distress] HEENT: [Pupils equal conjunctiva normal.] NECK: [Supple, no JVD, short neck] RESPIRATORY EFFORT:[Normal] LUNGS: [Diminished, no crackles, occasional expiratory wheeze scattered] CARDIOVASCULAR[regular S1 and S2, no murmur rubs or gallops, positive edema] GI: [Abdomen soft, nontender, positive bowel sounds.] PSYCH: [Alert and oriented -3, mood and affect normal.] NEURO: Bilateral Lower extremity paralysis,Otherwise Gross neuro examination does not reveal any focal deficits Microbiology 06/13/16 10:10 Blood Blood Culture - Final No Growth after 144 hours 06/13/16 10:46 Blood Blood Culture - Final No Growth after 144 hours 06/15/16 21:14 Sputum Gram Stain - Final 06/15/16 21:14 Sputum Sputum Culture - Final Mame albicans 06/12/16 16:13 Blood Blood Culture Gram Stain - Final 06/12/16 16:13 Blood Blood Culture - Final Streptococcus pneumoniae 06/12/16 19:20 Urine,Catheterized Urine Culture - Final Enterococcus faecalis Mame albicans 06/12/16 16:13 Blood Blood Culture - Preliminary - Labs CBC & Chem 7: 06/19/16 05:30 06/19/16 05:30 Labs: Abnormal Lab Results - Last 24 Hours (Table) 06/18/16 06/18/16 06/19/16 Range/Units 17:02 20:12 05:30 RBC 3.18 L (3.80-5.40) m/uL Hgb 9.6 L (11.4-16.0) gm/dL Hct 31.0 L (34.0-46.0) % Carbon Dioxide (22-30) mmol/L BUN (7-17) mg/dL Creatinine (0.52-1.04) mg/dL Glucose (74-99) mg/dL POC Glucose (mg/dL) 119 H 171 H (75-99) mg/dL 06/19/16 06/19/16 Range/Units 05:30 06:59 RBC (3.80-5.40) m/uL Hgb (11.4-16.0) gm/dL Hct (34.0-46.0) % Carbon Dioxide 31 H (22-30) mmol/L BUN 32 H (7-17) mg/dL Creatinine 1.10 H (0.52-1.04) mg/dL Glucose 161 H (74-99) mg/dL POC Glucose (mg/dL) 139 H (75-99) mg/dL Microbiology - Last 24 Hours (Table) 06/13/16 10:10 Blood Culture - Final Blood No Growth after 144 hours 06/13/16 10:46 Blood Culture - Final Blood No Growth after 144 hours Assessment and Plan Plan: 1. Bibasilar strep pneumonia leading to bacteremia and sepsis 2. UTI with enteric coccus 3. Morbid obesity, BMI 63.3 4. 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 Diabetes mellitus type 2 6. Fibromyalgia 7. Gastroesophageal reflux disease 8. Hyperlipidemia 9. Essential hypertension 10. Osteoarthritis 11. Urinary incontinence Plan: Continue on current medication regime ,monitoring and symptomatic treatment. Antibiotics as per infectious disease. Patient updated on plan of care including discharge mom verbalizes understanding and agreement with. Discharge planning in progress pending in-home care assistance arranged/ confirmed. Further recommendations to follow. The impression and plan of care has been dictated as directed. : I performed a H&P examination of this patient and discussed the same with the dictator. I agree with the dictator's note. Any additional findings/opinions/ etc. will be noted.
== END 2016-06-20 12:07 | disposition home health service (06) | DRG 698 ==
LOC: EC 14:51 → 5MS5E 16:45 → 6ICU 21:14 → 4MS4W 06-14 12:09
PROVIDERS: ADMIT Hospitalist; ATTEND Hospitalist
DX: T83.511A Infection and inflammatory reaction due to indwelling urethral catheter, initial encounter (principal); A40.3 Sepsis due to Streptococcus pneumoniae; J96.00 Acute respiratory failure, unspecified whether with hypoxia or hypercapnia; R65.21 Severe sepsis with septic shock; J15.4 Pneumonia due to other streptococci; I11.0 Hypertensive heart disease with heart failure; R53.2 Functional quadriplegia; I50.9 Heart failure, unspecified; E66.2 Morbid (severe) obesity with alveolar hypoventilation; J44.0 Chronic obstructive pulmonary disease with (acute) lower respiratory infection; J44.1 Chronic obstructive pulmonary disease with (acute) exacerbation; Z68.44 Body mass index [BMI] 60.0-69.9, adult; N39.0 Urinary tract infection, site not specified; E11.65 Type 2 diabetes mellitus with hyperglycemia; B95.2 Enterococcus as the cause of diseases classified elsewhere; B96.20 Unspecified Escherichia coli [E. coli] as the cause of diseases classified elsewhere; E78.5 Hyperlipidemia, unspecified; J45.909 Unspecified asthma, uncomplicated; K21.9 Gastro-esophageal reflux disease without esophagitis; K59.00 Constipation, unspecified; M15.9 Polyosteoarthritis, unspecified; M79.7 Fibromyalgia; M85.80 Other specified disorders of bone density and structure, unspecified site; R32 Unspecified urinary incontinence; Y73.8 Miscellaneous gastroenterology and urology devices associated with adverse incidents, not elsewhere classified; Z16.12 Extended spectrum beta lactamase (ESBL) resistance; Z79.82 Long term (current) use of aspirin; Z79.899 Other long term (current) drug therapy; Z80.1 Family history of malignant neoplasm of trachea, bronchus and lung; Z87.440 Personal history of urinary (tract) infections; Z87.891 Personal history of nicotine dependence; Z79.84 Long term (current) use of oral hypoglycemic drugs; Z88.1 Allergy status to other antibiotic agents; Z88.2 Allergy status to sulfonamides
CPT/HCPCS: 36415; 71010; 80048; 80053; 80202; 81001; 82550; 82553; 83605; 83735; 83880; 84100; 84443; 84484; 85025; 85027; 85610; 85730; 87040; 87070; 87077; 87086; 87186; 87205; 87502; 93005; 94640; 94660; 94760; 96365; 96367; 96375; 99291

== ENCOUNTER → 2016-10-23 | Outpatient (CLI) | payer MEDICARE, OTHER | END | disposition home or self-care (01) | LOC: LABWHC1 14:53 | PROVIDERS: ATTEND Allergy & Immunology | DX: J45.909 Unspecified asthma, uncomplicated (principal) | CPT/HCPCS: 36415; 82785 ==

== ENCOUNTER → 2016-11-08 | Outpatient (CLI) | payer MEDICARE, OTHER ==
--- NOTE | 2016-11-09 07:25 | MM ---
Reason for exam: additional evaluation requested from prior study. History: Benign US biopsy breast VAD RT of the right breast, January 03, 2016. Benign stereotactic core biopsy of the right breast, January 30, 2003. Core biopsy of the right breast. Physical Findings: Nurse did not find any significant physical abnormalities on exam. MG 3D Diag Mammo W/Cad ZAY Bilateral CC and MLO view(s) were taken. The breast tissue is almost entirely fat. There is no discrete abnormality including area of concern. Previously sampled nodule in the right breast is smaller in size. These results were verbally communicated with the patient and result sheet given to the patient on 11/08/16. ASSESSMENT: Incomplete: need additional imaging evaluation, BI-RAD 0 RECOMMENDATION: Ultrasound of the right breast. Manage patient on a clinical basis.
--- NOTE | 2016-11-09 07:26 | USB ---
Reason for exam: additional evaluation requested from abnormal screening. History: Benign US biopsy breast VAD RT of the right breast, January 03, 2016. Benign stereotactic core biopsy of the right breast, January 30, 2003. Core biopsy of the right breast. US Breast RT Right breast ultrasound includes all four quadrants, the retroareolar region and axilla. Finding demonstrates a 1.1 x 0.3 x 0.7cm hypoechoic lesion at 2 o'clock and a 0.6 x 0.5 x 0.3cm hypoechoic lesion at 10 o'clock. These results were verbally communicated with the patient and result sheet given to the patient on 11/08/16. ASSESSMENT: Benign, BI-RAD 2 RECOMMENDATION: Routine screening mammogram of both breasts in 1 year. Manage patient on a clinical basis.
== END | disposition home or self-care (01) ==
LOC: RADMAMWWP 13:45
PROVIDERS: ATTEND Family Medicine
DX: R92.8 Other abnormal and inconclusive findings on diagnostic imaging of breast (principal)
CPT/HCPCS: 76641; G0204; G0279

== ENCOUNTER 2017-01-26 02:14 | Inpatient (IN) | payer MEDICARE, OTHER ==
[2017-01-26] MEDS ORDERED: ACETAMINOPHEN TAB 500 MG TAB PO STA (02:42)
[2017-01-26] MEDS ORDERED: IBUPROFEN 800 MG TAB PO STA (02:42)
[2017-01-26] MEDS ORDERED: IPRATROPIUM-ALBUTEROL 3 ML NEB INHALATION STA (02:43)
[2017-01-26] MEDS ORDERED: VANCOMYCIN IV PER PHARMACY 1 EACH MISC MISCELLANE PRN (02:56)
[2017-01-26] MEDS ORDERED: PIPERACILLIN-TAZOBACTAM 3.375 GM in DEXTROSE/WATER 1 50ML.BAG IVPB STA (02:56)
[2017-01-26] MEDS ORDERED: SODIUM CHLORIDE 0.9% 1,000 ML IV STA ×2 (02:56)
[2017-01-26] MEDS ORDERED: SODIUM CHLORIDE 0.9% 500 ML IV STA (02:56)
--- NOTE | 2017-01-26 02:58 | ED ---
General Adult HPI - General Chief complaint: Fever Stated complaint: Fever Time Seen by Provider: 01/26/17 02:40 Source: patient, EMS, RN notes reviewed, old records reviewed Mode of arrival: EMS - History of Present Illness Initial comments: This is a 66-year-old female to the ER for evaluation. This patient presents for evaluation regarding not feeling well nausea weakness. Patient's significant medical history lower extremity paralysis and D mobility. Patient states she's had some discolored urine as of late, mild cough and congestion and overall not feeling well. About 2 days. Patient has history of multiple medical admissions. And a sinus complaining of generalized body aches - Related Data Home Medications Medication Instructions Recorded Confirmed Ascorbic Acid [Vitamin C] 1,000 mg PO DAILY@1200 10/22/13 06/12/16 Aspirin 81 mg PO HS 10/22/13 06/12/16 Baclofen [Lioresal] 10 mg PO BID 10/22/13 06/12/16 Budesonide-Formot 160-4.5 Mcg 2 puff INHALATION RT-BID 10/22/13 06/12/16 [Symbicort 160-4.5 Mcg Inhaler] Celecoxib [CeleBREX] 200 mg PO QAM 10/22/13 06/12/16 Cetirizine HCl [Zyrtec] 10 mg PO QAM 10/22/13 06/12/16 Furosemide [Lasix] 40 mg PO BID 10/22/13 06/12/16 Montelukast Sodium [Singulair] 10 mg PO QAM 10/22/13 06/12/16 Omeprazole [PriLOSEC] 20 mg PO 10/22/13 06/12/16 Spironolactone [Aldactone] 25 mg PO BID 10/22/13 06/12/16 Cyanocobalamin [Vitamin B-12] 1,000 mcg PO Q48H 10/18/15 06/12/16 Ergocalciferol [Vitamin D2 50,000 unit PO FR 10/18/15 06/12/16 (DRISDOL)] Ferrous Sulfate, Dried [Slow 159 mg PO DAILY@1200 10/18/15 06/12/16 Release Iron] Sennosides [Senna] 17.2 mg PO BID 10/18/15 06/12/16 Albuterol Inhaler [Ventolin Hfa 2 puff INHALATION RT-QID PRN 06/12/16 06/12/16 Inhaler] Citalopram Hydrobromide [CeleXA] 10 mg PO QAM 06/12/16 06/12/16 HYDROcodone/APAP 5-325MG [[place] 1 tab PO Q8H PRN 06/12/16 06/12/16 5-325] metFORMIN HCL [Glucophage] 2,000 mg PO DAILY@199906/12/16 06/12/16 predniSONE 20 mg PO DAILY 06/12/16 06/12/16 Metoclopramide HCl [Reglan] 5 mg PO 0730,2100 06/14/16 06/14/16 Previous Rx's Medication Instructions Recorded Gabapentin [Neurontin] 300 mg PO BID cap 10/27/15 Ipratropium-Albuterol Nebulize 3 ml INHALATION RT-QID ampul.neb 10/27/15 [Duoneb 0.5 mg-3 mg/3 ml Soln] Piperacillin-Tazobactam [Zosyn] 3.375 gm IVPB Q6H #28 bag 06/19/16 Allergies Allergy/AdvReac Type Severity Reaction Status Date / Time acyclovir Allergy Rash/Hives Verified 06/12/16 16:06 cephalexin [Cephalexin] Allergy Anaphylaxis Verified 06/12/16 16:06 cephalexin monohydrate Allergy Anaphylaxis Verified 06/12/16 16:06 [From Keflex] Cephalosporins Allergy Unknown Verified 06/12/16 15:13 erythromycin base Allergy Unknown Verified 06/12/16 15:13 famciclovir Allergy Rash/Hives Verified 06/12/16 16:06 meropenem [From Merrem] Allergy Anaphylaxis Verified 06/12/16 16:06 nitrofurantoin Allergy Unknown Verified 06/12/16 15:13 [From Macrobid] nitrofurantoin Allergy Unknown Verified 06/12/16 15:13 macrocrystalline [From Macrobid] sulfamethoxazole Allergy Unknown Verified 06/12/16 15:13 [From Bactrim] trimethoprim [From Bactrim] Allergy Unknown Verified 06/12/16 15:13 Review of Systems ROS Statement: Those systems with pertinent positive or pertinent negative responses have been documented in the HPI. ROS Other: All systems not noted in ROS Statement are negative. Past Medical History Past Medical History: Asthma, COPD, Diabetes Mellitus, Fibromyalgia, GERD/Reflux , Hyperlipidemia, Hypertension, Osteoarthritis (OA), Pneumonia, Sleep Apnea/CPAP /BIPAP Additional Past Medical History / Comment(s): IDC, FREQ UTI. anemia; osteopenia ; parapalegic "R/T SPINAL SURG 2006, AND AMBULANCE INJURY LATER", obstructive sleep apnea, chronic Stallings catheter, shingles History of Any Multi-Drug Resistant Organisms: ESBL Date of last positivie culture/infection: 10/18/15 MDRO Source:: Urine-E.coli ESBL Past Surgical History: Adenoidectomy, Back Surgery, Joint Replacement, Orthopedic Surgery, Tonsillectomy Additional Past Surgical History / Comment(s): Neck surgery, ZAY KNEE REPLACEMENT, FUSION T-12 TO L-5 METAL REMOVED, L5 TO S1 - AND REFUSED,KNEE ARTHROSCOPY X3. RT FOOT METATRSAL BROKEN, BIOPSY ON ZAY BREAST-NEG, ZAY CARPAL TUNNEL, LT HAND BASAL. ARTHROSOCPY,UMBILICAL HERNIA, SANTANA 09/2012; LAPROSCOPY, B CATARACTS. Past Anesthesia/Blood Transfusion Reactions: Family History of Problems w/ Anesthesia, Postoperative Nausea & Vomiting (PONV) Additional Past Anesthesia/Blood Transfusion Reaction / Comment(s): HAD BLOOD TRANSFUSION IN PAST. SISTER HAD PROB BREATHING AFTER SURG. Past Psychological History: Depression Smoking Status: Former smoker Past Alcohol Use History: None Reported Past Drug Use History: None Reported - Past Family History Father Family Medical History: Cancer Additional Family Medical History / Comment(s): LUNG CA - BOTH PARENTS Mother Family Medical History: Cancer General Exam General appearance: alert, in no apparent distress Head exam: Present: atraumatic, normocephalic, normal inspection Eye exam: Present: normal appearance, PERRL, EOMI. Absent: scleral icterus, conjunctival injection, periorbital swelling ENT exam: Present: normal exam, mucous membranes moist Neck exam: Present: normal inspection. Absent: tenderness, meningismus, lymphadenopathy Respiratory exam: Present: normal lung sounds bilaterally. Absent: respiratory distress, wheezes, rales, rhonchi, stridor Cardiovascular Exam: Present: regular rate, normal rhythm, normal heart sounds. Absent: systolic murmur, diastolic murmur, rubs, gallop, clicks GI/Abdominal exam: Present: soft, normal bowel sounds. Absent: distended, tenderness, guarding, rebound, rigid Extremities exam: Present: normal inspection, full ROM, normal capillary refill. Absent: tenderness, pedal edema, joint swelling, calf tenderness Back exam: Present: normal inspection Neurological exam: Present: alert, oriented X3, CN II-XII intact Psychiatric exam: Present: normal affect, normal mood Skin exam: Present: warm, dry, intact, normal color. Absent: rash Course Vital Signs 01/26/17 01/26/17 01/26/17 02:18 02:59 03:18 Temperature 104.4 F H Pulse Rate 18 L 132 H 133 H Respiratory 20 Rate Blood Pressure 188/92 O2 Sat by Pulse 92 L Oximetry 01/26/17 04:14 Temperature 101.7 F H Pulse Rate 131 H Respiratory 18 Rate Blood Pressure 170/90 O2 Sat by Pulse 94 L Oximetry EKG Findings - EKG Comments: EKG Findings:: EKG shows sinus tachycardia rate 132, QRS 150, QTc 80, QTC 423 Medical Decision Making - Medical Decision Making 66 female in the ER for evaluation of fever and not feeling well. Positive significant urinary tract infection likely bacteremia, patient will be given fever control, IV fluid and significant antibiotics. Patient's be admitted for evaluation or monitoring of cardiopulmonary status - Lab Data Result diagrams: 01/26/17 02:28 01/26/17 02:28 Lab Results 01/26/17 01/26/17 01/26/17 Range/Units 00:01 02:28 02:28 WBC 11.4 H (3.8-10.6) k/uL RBC 3.66 L (3.80-5.40) m/uL Hgb 11.4 (11.4-16.0) gm/dL Hct 36.1 (34.0-46.0) % MCV 98.7 (80.0-100.0) fL MCH 31.2 (25.0-35.0) pg MCHC 31.6 (31.0-37.0) g/dL RDW 16.8 H (11.5-15.5) % Plt Count 265 (150-450) k/uL Neutrophils % 90 % Lymphocytes % 7 % Monocytes % 2 % Eosinophils % 1 % Basophils % 0 % Neutrophils # 10.2 H (1.3-7.7) k/uL Lymphocytes # 0.8 L (1.0-4.8) k/uL Monocytes # 0.2 (0-1.0) k/uL Eosinophils # 0.1 (0-0.7) k/uL Basophils # 0.0 (0-0.2) k/uL Anisocytosis Slight Macrocytosis Slight PT (9.0-12.0) sec INR (<1.2) APTT (22.0-30.0) sec Sodium 138 (137-145) mmol/L Potassium 4.7 (3.5-5.1) mmol/L Chloride 99 (98-107) mmol/L Carbon Dioxide 25 (22-30) mmol/L Anion Gap 14 mmol/L BUN 37 H (7-17) mg/dL Creatinine 1.10 H (0.52-1.04) mg/dL Est GFR (MDRD) Af Amer >60 (>60 ml/min/1.73 sqM) Est GFR (MDRD) Non-Af 50 (>60 ml/min/1.73 sqM) Glucose 192 H (74-99) mg/dL Plasma Lactic Acid Kvng (0.7-2.0) mmol/L Calcium 9.4 (8.4-10.2) mg/dL Total Bilirubin 0.4 (0.2-1.3) mg/dL AST 36 (14-36) U/L ALT 59 H (9-52) U/L Alkaline Phosphatase 194 H (38-126) U/L Total Protein 7.3 (6.3-8.2) g/dL Albumin 4.1 (3.5-5.0) g/dL Lipase 174 (23-300) U/L Urine Color Light Yellow Urine Appearance Turbid H (Clear) Urine pH 5.5 (5.0-8.0) Ur Specific [place] 1.011 (1.001-1.035) Urine Protein 1+ H (Negative) Urine Glucose (UA) Negative (Negative) Urine Ketones Negative (Negative) Urine Blood Small H (Negative) Urine Nitrite Positive H (Negative) Urine Bilirubin Negative (Negative) Urine Urobilinogen <2.0 (<2.0) mg/dL Ur Leukocyte Esterase Large H (Negative) Urine RBC 11 H (0-5) /hpf Urine WBC >182 H (0-5) /hpf Urine WBC Clumps Many H (None) /hpf Urine Bacteria Rare H (None) /hpf Urine Mucus Rare H (None) /hpf Influenza Type A RNA (Not Detectd) Influenza Type B (PCR) (Not Detectd) 01/26/17 01/26/17 01/26/17 Range/Units 02:28 02:28 03:34 WBC (3.8-10.6) k/uL RBC (3.80-5.40) m/uL Hgb (11.4-16.0) gm/dL Hct (34.0-46.0) % MCV (80.0-100.0) fL MCH (25.0-35.0) pg MCHC (31.0-37.0) g/dL RDW (11.5-15.5) % Plt Count (150-450) k/uL Neutrophils % % Lymphocytes % % Monocytes % % Eosinophils % % Basophils % % Neutrophils # (1.3-7.7) k/uL Lymphocytes # (1.0-4.8) k/uL Monocytes # (0-1.0) k/uL Eosinophils # (0-0.7) k/uL Basophils # (0-0.2) k/uL Anisocytosis Macrocytosis PT 9.8 (9.0-12.0) sec INR 1.0 (<1.2) APTT 23.7 (22.0-30.0) sec Sodium (137-145) mmol/L Potassium (3.5-5.1) mmol/L Chloride (98-107) mmol/L Carbon Dioxide (22-30) mmol/L Anion Gap mmol/L BUN (7-17) mg/dL Creatinine (0.52-1.04) mg/dL Est GFR (MDRD) Af Amer (>60 ml/min/1.73 sqM) Est GFR (MDRD) Non-Af (>60 ml/min/1.73 sqM) Glucose (74-99) mg/dL Plasma Lactic Acid Kvng 3.1 H* (0.7-2.0) mmol/L Calcium (8.4-10.2) mg/dL Total Bilirubin (0.2-1.3) mg/dL AST (14-36) U/L ALT (9-52) U/L Alkaline Phosphatase (38-126) U/L Total Protein (6.3-8.2) g/dL Albumin (3.5-5.0) g/dL Lipase (23-300) U/L Urine Color Urine Appearance (Clear) Urine pH (5.0-8.0) Ur Specific [place] (1.001-1.035) Urine Protein (Negative) Urine Glucose (UA) (Negative) Urine Ketones (Negative) Urine Blood (Negative) Urine Nitrite (Negative) Urine Bilirubin (Negative) Urine Urobilinogen (<2.0) mg/dL Ur Leukocyte Esterase (Negative) Urine RBC (0-5) /hpf Urine WBC (0-5) /hpf Urine WBC Clumps (None) /hpf Urine Bacteria (None) /hpf Urine Mucus (None) /hpf Influenza Type A RNA Not Detected (Not Detectd) Influenza Type B (PCR) Not Detected (Not Detectd) - Radiology Data Radiology results: report reviewed (CXR is negative for acute disease), image reviewed Disposition Clinical Impression: Urinary tract infection, Fever, Acute exacerbation of chronic obstructive airways disease Disposition: ADMITTED IP TO THIS [facility] Condition: Serious Referrals: Raymond Andrade MD [Primary Care Provider] - 1-2 days
[2017-01-26 03:01] LABS: Appearance,Urine Turbid (Clear); Bacteria,Urine Rare /hpf; Bilirubin,Urine Negative (Negative); Glucose,Urine (UA) Negative (Negative); Ketones,Urine Negative (Negative); Leukocyte Esterase,Urine Large (Negative); Mucus,Urine Rare /hpf; Nitrite,Urine Positive (Negative); PH, Urine 5.5 (5.0-8.0); Particle Count 15339; Protein,Urine 1+ (Negative); RBC,Urine 11 /hpf (0-5); Specific Gravity,Urine 1.011 (1.001-1.035); UA Billing (MACRO vs. MICRO) MICRO; Urobilinogen,Urine <2.0 mg/dL (<2.0); WBC,Urine >182 /hpf (0-5)
[2017-01-26] MEDS ORDERED: VANCOMYCIN 2,000 MG in SODIUM CHLORIDE 0.9% 500 ML IVPB STA (03:02)
[2017-01-26 03:07] LABS: ALT 59 U/L (9-52); AST 36 U/L (14-36); Alkaline Phosphatase 194 U/L (38-126); Anion Gap 14 mmol/L; Blood Urea Nitrogen 37 mg/dL (7-17); Calcium 9.4 mg/dL (8.4-10.2); Carbon Dioxide 25 mmol/L (22-30); Chloride 99 mmol/L (98-107); Glucose 192 mg/dL (74-99); Non-African American GFR(MDRD) 50 (>60 ml/min/1.73 sqM); Potassium 4.7 mmol/L (3.5-5.1); Sodium 138 mmol/L (137-145); Total Bilirubin 0.4 mg/dL (0.2-1.3); Total Protein 7.3 g/dL (6.3-8.2)
[2017-01-26 03:18] LABS: Anisocytosis Slight; Basophils % (A) 0 %; CH 31.5; CHCM 32.1; Eosinophils # (A) 0.1 k/uL (0-0.7); Eosinophils % (A) 1 %; HCT 36.1 % (34.0-46.0); HDW 2.49; HGB 11.4 gm/dL (11.4-16.0); Luc # (Auto) 0.04; Luc % (Auto) 0; Lymphocytes # (A) 0.8 k/uL (1.0-4.8); Lymphocytes % (A) 7 %; MCH 31.2 pg (25.0-35.0); MCHC 31.6 g/dL (31.0-37.0); MCV 98.7 fL (80.0-100.0); Macrocytosis Slight; Mean Platelet Volume 9.2; Monocytes # (A) 0.2 k/uL (0-1.0); Monocytes % (A) 2 %; Neutrophils # (A) 10.2 k/uL (1.3-7.7); Neutrophils % (A) 90 %; RBC 3.66 m/uL (3.80-5.40); RDW 16.8 % (11.5-15.5); WBC 11.4 k/uL (3.8-10.6); WBC (Perox) 11.25
[2017-01-26 03:21] LABS: Partial Thromboplastin Time 23.7 sec (22.0-30.0); Prothrombin Time 9.8 sec (9.0-12.0)
--- NOTE | 2017-01-26 04:56 | XR ---
EXAM: XR Chest, 2 Views CLINICAL HISTORY: Reason: Pain TECHNIQUE: Frontal and lateral views of the chest. COMPARISON: Chest radiograph on 06/18/2016 FINDINGS: Hardware: Right-sided catheter appears to terminate in the region of the mid SVC. Lungs/pleura: Right basilar opacity may represent atelectasis versus pneumonia. No pleural effusion or pneumothorax. Heart/mediastinum: Stable cardiomegaly. Soft tissues: Unremarkable. Bones: No acute fracture. Degenerative changes of the visualized right shoulder. Spinal fusion hardware partially visualized in the lower cervical spine. IMPRESSION: Right basilar opacity may represent atelectasis versus pneumonia.
[2017-01-26] MEDS ORDERED: IBUPROFEN 600 MG TAB PO PRN (05:01)
[2017-01-26] MEDS ORDERED: methylPREDNISolone SOD SUCCI 125 MG/2 ML VIAL IV STA (05:04)
[2017-01-26] MEDS: SODIUM CHLORIDE 0.9% 1,000 ML IV SCH ×3 (05:38→11:01)
[2017-01-26] MEDS: ACETAMINOPHEN TAB 325 MG TAB PO PRN ×2 (06:33→12:55)
[2017-01-26 07:36] LABS: Glucose,Whole Blood 216 mg/dL (75-99)
[2017-01-26] MEDS ORDERED: AMMONIUM LACTATE 12% LOTION 225 GM BTL TOPICAL PRN (10:32)
[2017-01-26] MEDS ORDERED: METOCLOPRAMIDE 5 MG TAB PO PRN (10:32)
[2017-01-26] MEDS: FERROUS SULFATE 325 MG TAB PO SCH (11:00)
[2017-01-26] MEDS: ERGOCALCIFEROL 50,000 UNIT CAP PO SCH (11:00)
[2017-01-26] MEDS: PIPERACILLIN-TAZOBACTAM 3.375 GM in DEXTROSE/WATER 1 50ML.BAG IVPB SCH ×2 (11:00→19:52)
[2017-01-26] MEDS: methylPREDNISolone SOD SUCCI 125 MG/2 ML VIAL IV SCH ×3 (11:00→23:43)
[2017-01-26] MEDS: ASCORBIC ACID 500 MG TAB PO SCH (11:00)
[2017-01-26 11:12] LABS: Hemoglobin A1C 7.5 % (4.2-6.1)
[2017-01-26] MEDS: IPRATROPIUM-ALBUTEROL 3 ML NEB INHALATION PRN ×2 (11:31→16:30)
[2017-01-26 12:22] LABS: Glucose,Whole Blood 154 mg/dL (75-99)
[2017-01-26] MEDS: INSULIN LISPRO (humaLOG) 300 UNIT/3 ML VIAL SQ SCH ×3 (13:24→21:43)
[2017-01-26] MEDS ORDERED: ALBUTEROL INHALER 60 PUFF/8 GM INHALER INHALATION PRN (14:59)
--- NOTE | 2017-01-26 15:32 | HP ---
HISTORY AND PHYSICAL DATE OF SERVICE: 01/26/2017 CHIEF COMPLAINTS: Fever. HISTORY OF PRESENT ILLNESS: This 66-year-old woman with a past history of multiple medical problems including asthma, COPD, fibromyalgia, sleep apnea, also had recurrent UTI. The patient has paraplegia secondary to spinal surgery in 2006. The family has noted the patient to not be feeling well, nausea and vomiting, diarrhea and as well as some chills and shakes also. The patient came to [facility] with patient had features of UTI with sepsis and patient admitted for further evaluation and treatment. There is no history of any headache, loss of consciousness or seizures. PAST MEDICAL HISTORY: History of COPD, diabetes, hypertension, hyperlipidemia, history of adenoidectomy and back surgery. MEDICATIONS: Prior to admission include home medications are: 1. Ammonia lactic 1 application b.i.d. p.r.n. 2. Reglan 5 mg p.r.n. 3. DuoNeb q.i.d. and p.r.n. 4. Lantus 60 units subcu q.h.s. 5. Glucophage 2000 mg p.o. daily. 6. Aldactone 25 mg p.o. b.i.d. 7. Singulair 10 mg p.o. q.a.m. 8. Neurontin 300 mg p.o. b.i.d. 9. Lasix 40 mg p.o. b.i.d. 10.Iron sulfate 150 mg p.o. daily. 11.Drisdol 20870 p.o. Sunday. 12.Celexa 10 mg p.o. q.h.s. 13.Zyrtec 10 mg in the morning. 14.Celebrex 200 mg. 15.Symbicort 160/4.5 two puffs b.i.d. 16.Diastat 10 mg p.o. b.i.d. 17.Aspirin 81 mg. 18.Vitamin C 1000 mg. 19.Ventolin 2.5 two puffs q.i.d. p.r.n. ALLERGIES: ACYCLOVIR, CEPHALEXIN, KEFLEX, CEPHALOSPORIN, VANCOMYCIN, FAMCICLOVIR, MACROBID AND BACTRIM. FAMILY HISTORY: Family history of lung cancer in both parents. SOCIAL HISTORY: Previous history of smoking. No history of current smoking or alcohol intake. REVIEW OF SYSTEMS: ENT: Diminished hearing and diminished vision. CARDIOVASCULAR: No angina. No palpitations. RESPIRATORY: As mentioned earlier. GI: No nausea or vomiting. : No dysuria or hematuria. Nervous system: No numbness or weakness. ALLERGY/IMMUNOLOGY: No asthma or hayfever. MUSCULOSKELETAL: As mentioned earlier. HEMATOLOGY/ONCOLOGY: No history of anemia. ENDOCRINE: No diabetes or hypothyroidism. CONSTITUTIONAL: As mentioned earlier. DERMATOLOGY: Negative. RHEUMATOLOGY: Negative. PSYCHIATRIC: As mentioned earlier. NEUROLOGICAL: As mentioned earlier. PHYSICAL EXAMINATION: The patient is alert and oriented times three. Pulse is 104, blood pressure 130/87, respiration 20, temp 99.1, pulse ox 94% on 3 L HEENT: Conjunctivae normal. Oral mucosa moist. Neck is no jugular venous distention. No carotid bruit. No lymph node enlargement. Cardiovascular system: S1, S2 muffled. RESPIRATORY: Breath sounds diminished in the bases. A few scattered rhonchi. No crackles. ABDOMEN: Soft, nontender. No mass. Legs: No edema. No swelling. Central nervous system: Diffusely weak. Paraparesis. Otherwise indwelling Stallings catheter present. Skin no ulcer, rash, bleeding. Lymphatics: No lymph nodes palpable in the neck, axillae or groin. LAB STUDIES: WBC 11.5, hemoglobin 11.4, creatinine 1.10. UA noted. ASSESSMENT: 1. Acute urinary tract infection with sepsis present on admission possibly secondary to indwelling Stallings catheter. 2. History of asthma/chronic obstructive pulmonary disease. 3. Diabetes type 2. 4. Hypertension. 5. Hyperlipidemia. 6. Paraplegia secondary to spinal surgery. 7. History of ESBL E coli. RECOMMENDATIONS AND DISCUSSION: In this 66-year-old woman who presented with multiple complex medical issues we will monitor the patient closely. Continue the current medications, management and continue symptomatic treatment. Otherwise at this time. I recommend broad-spectrum IV antibiotics. Follow the cultures. Repeat labs. Otherwise resume the home medications. DVT prophylaxis. The prognosis guarded because of multiple complex medical issues. As mentioned earlier cultures were obtained. Cultures will be ordered. Home medications are reconciled at this time. The prognosis guarded. See orders for details. Discussed at length with the family at the bedside. Copy being forwarded to Dr. Andrade who is the primary care physician. MMODL / IJN: [id number] /
[2017-01-26 17:21] LABS: Glucose,Whole Blood 315 mg/dL (75-99)
--- NOTE | 2017-01-26 18:58 | P.CONS ---
History of Present Illness - Reason for Consult Consult date: 01/26/17 - Chief Complaint Malaise and fatigue - History of Present Illness 66-year-old female who suffers from superobesity and paraplegia presents to the emergency center relating that her urine has turned milky cloudy white. She was not feeling well at least for the last couple of days. She was having generalized malaise and low-grade fever without chills or rigors. She's had some minimal cough. She suddenly was not feeling well and constantly was brought to Hospital by EMS. She this time relates that she is feeling somewhat better. She's been able to rest in the bed although it's a bit firm she's doing well with her BiPAP in place. She is denying further fever , chills or rigors. Is still very weak and has not been able to eat her meals. However is denying nausea or emesis. She does feel very poor overall with body aches. No new skin lesions noted. Review of Systems Constitutional: Reports daytime sleepiness, Reports fatigue, Reports lethargy, Reports malaise, Reports weight gain Eyes: denies blurred vision Ears: deny: decreased hearing Ears, nose, mouth and throat: Reports nasal congestion, Reports sinus pressure Cardiovascular: Reports dyspnea on exertion, Reports edema, Reports orthopnea, Reports shortness of breath, Denies chest pain, Denies syncope Respiratory: Reports dyspnea, Reports home oxygen, Reports snoring Gastrointestinal: Reports bloating, Reports constipation, Reports nausea Genitourinary: Has some left flank pain. Full he catheters in place with the milky white urine as noted in the HPI Menstruation: Reports postmenopausal Musculoskeletal: Reports atrophy, Reports gait dysfunction, Reports leg numbness /tingling, Reports limitation of motion, Reports low back pain, Reports muscle weakness Musculoskeletal: right: foot pain (heel spur) Integumentary: Reports dryness Neurological: Reports motor disturbance, Reports weakness (unable to ambulate) Psychiatric: Reports anxiety Hematologic/Lymphatic: Denies lymphadenopathy Allergic/Immunologic: Reports seasonal allergies Past Medical History Past Medical History: Asthma, COPD, Diabetes Mellitus, Fibromyalgia, GERD/Reflux , Hyperlipidemia, Hypertension, Osteoarthritis (OA), Pneumonia, Sleep Apnea/CPAP /BIPAP Additional Past Medical History / Comment(s): IDC, FREQ UTI. anemia; osteopenia ; parapalegic "R/T SPINAL SURG 2006, AND AMBULANCE INJURY LATER", obstructive sleep apnea, chronic Stallings catheter, shingles History of Any Multi-Drug Resistant Organisms: ESBL Year Discovered:: 10/18/15 MDRO Source:: Urine-E.coli ESBL Past Surgical History: Adenoidectomy, Back Surgery, Joint Replacement, Orthopedic Surgery, Tonsillectomy Additional Past Surgical History / Comment(s): Neck surgery, ZAY KNEE REPLACEMENT, FUSION T-12 TO L-5 METAL REMOVED, L5 TO S1 - AND REFUSED,KNEE ARTHROSCOPY X3. RT FOOT METATRSAL BROKEN, BIOPSY ON ZAY BREAST-NEG, ZAY CARPAL TUNNEL, LT HAND BASAL. ARTHROSOCPY,UMBILICAL HERNIA, SANTANA 09/2012; LAPROSCOPY, B CATARACTS. Past Anesthesia/Blood Transfusion Reactions: Family History of Problems w/ Anesthesia, Postoperative Nausea & Vomiting (PONV) Additional Past Anesthesia/Blood Transfusion Reaction / Comm: HAD BLOOD TRANSFUSION IN PAST. SISTER HAD PROB BREATHING AFTER SURG. Past Psychological History: Depression Additional Psychological History / Comment(s): Lives in the family home. She has a visiting physician. Has family members that help her. She is on a bariatric air bed at home. She also has Summer lift, electric wheelchair, nebulizer, BiPAP and home oxygen at 2 L nasal cannula. Santana in place. Smoking Status: Former smoker Past Alcohol Use History: None Reported Past Drug Use History: None Reported - Past Family History Father Family Medical History: Cancer Additional Family Medical History / Comment(s): LUNG CA - BOTH PARENTS Mother Family Medical History: Cancer Medications and Allergies Home Medications and Allergies Comment(s): Current Medications Acetaminophen (Tylenol Tab) 650 mg PO Q6HR PRN PRN Reason: Fever and/ or Pain Last Admin: 01/26/17 12:55 Dose: 650 mg Albuterol/Ipratropium (Duoneb 0.5 Mg-3 Mg/3 Ml Soln) 3 ml INHALATION RT-Q4H PRN PRN Reason: Shortness Of Breath Last Admin: 01/26/17 16:30 Dose: 3 ml Albuterol/Ipratropium (Duoneb 0.5 Mg-3 Mg/3 Ml Soln) 3 ml INHALATION RT-BID ANNE Ascorbic Acid (Vitamin C) 1,000 mg PO DAILY@1200 ANNE Last Admin: 01/26/17 11:00 Dose: 1,000 mg Aspirin (Aspirin) 81 mg PO HS [facility] Baclofen (Lioresal) 10 mg PO BID [facility] Budesonide/Formoterol Fumarate (Symbicort 160-4.5 Mcg Inhaler) 2 puff INHALATION RT-BID [facility] Citalopram Hydrobromide (Celexa) 10 mg PO QAM [facility] Ergocalciferol (Vitamin D2) 50,000 unit PO FR [facility] Last Admin: 01/26/17 11:00 Dose: 50,000 unit Ferrous Sulfate (Feosol) 325 mg PO DAILY@1200 [facility] Last Admin: 01/26/17 11:00 Dose: 325 mg Furosemide (Lasix) 40 mg PO BID [facility] Gabapentin (Neurontin) 300 mg PO BID [facility] Heparin Sodium (Porcine) (Heparin) 5,000 unit SQ Q12HR [facility] Vancomycin HCl 2,000 mg/ (Sodium Chloride) 500 mls @ 167 mls/hr IVPB Q24H [facility] Levofloxacin 750 mg/ IV (Solution) 150 mls @ 100 mls/hr IVPB Q24H [facility] Piperacillin/Tazobactam/ (Dextrose 3.375 gm/ IV Solution) 50 mls @ 12.5 mls/hr IVPB Q8H [facility] Last Admin: 01/26/17 11:00 Dose: 12.5 mls/hr Ibuprofen (Motrin) 600 mg PO TID PRN PRN Reason: Fever Insulin Glargine (Lantus) 6 unit SQ HS [facility] Insulin Human Lispro (Humalog) 0 unit SQ ACHS [facility] PRN Reason: Protocol Last Admin: 01/26/17 17:18 Dose: 8 unit Lactic Acid (Lac-Hydrin 12%) 1 applic TOPICAL BID PRN PRN Reason: Dry Skin Loratadine (Claritin) 10 mg PO QAM [facility] Meloxicam (Mobic) 7.5 mg PO QAM [facility] Metformin HCl (Glucophage) 2,000 mg PO DAILY@2000 [facility] Methylprednisolone Sodium Succinate (Solu-Medrol) 60 mg IV Q6HR [facility] Last Admin: 01/26/17 17:18 Dose: 60 mg Metoclopramide HCl (Reglan) 5 mg PO DAILY PRN PRN Reason: Nausea Montelukast Sodium (Singulair) 10 mg PO QAM [facility] Spironolactone (Aldactone) 25 mg PO BID [facility] Home Medications Medication Instructions Recorded Confirmed Type Ascorbic Acid [Vitamin C] 1,000 mg PO DAILY@1200 10/22/13 01/26/17 History Aspirin 81 mg PO HS 10/22/13 01/26/17 History Baclofen [Lioresal] 10 mg PO BID 10/22/13 01/26/17 History Budesonide-Formot 160-4.5 Mcg 2 puff INHALATION RT-BID 10/22/13 01/26/17 History [Symbicort 160-4.5 Mcg Inhaler] Celecoxib [CeleBREX] 200 mg PO QAM 10/22/13 01/26/17 History Cetirizine HCl [Zyrtec] 10 mg PO QAM 10/22/13 01/26/17 History Furosemide [Lasix] 40 mg PO BID 10/22/13 01/26/17 History Montelukast Sodium [Singulair] 10 mg PO QAM 10/22/13 01/26/17 History Spironolactone [Aldactone] 25 mg PO BID 10/22/13 01/26/17 History Ergocalciferol [Vitamin D2 50,000 unit PO FR 10/18/15 01/26/17 History (DRISDOL)] Ferrous Sulfate, Dried [Slow 159 mg PO DAILY@1200 10/18/15 01/26/17 History Release Iron] Gabapentin [Neurontin] 300 mg PO BID cap 10/27/15 01/26/17 Rx Albuterol Inhaler [Ventolin Hfa 2 puff INHALATION RT-QID PRN 06/12/16 01/26/17 History Inhaler] Citalopram Hydrobromide [CeleXA] 10 mg PO QA 06/12/16 01/26/17 History metFORMIN HCL [Glucophage] 2,000 mg PO DAILY@199906/12/16 01/26/17 History Metoclopramide HCl [Reglan] 5 mg PO DAILY PRN 06/14/16 01/26/17 History Ammonium Lactate Lotion 1 applic TOPICAL BID PRN 01/26/17 01/26/17 History [Lac-Hydrin 12% Lotion] Insulin Glargine,Hum.rec.anlog 6 unit SQ HS 01/26/17 01/26/17 History [Lantus Solostar] Ipratropium-Albuterol Nebulize 3 ml INHALATION RT-BID 01/26/17 01/26/17 History [Duoneb 0.5 mg-3 mg/3 ml Soln] Allergies Allergy/AdvReac Type Severity Reaction Status Date / Time acyclovir Allergy Rash/Hives Verified 01/26/17 07:53 cephalexin [Cephalexin] Allergy Anaphylaxis Verified 01/26/17 07:53 cephalexin monohydrate Allergy Anaphylaxis Verified 01/26/17 07:53 [From Keflex] Cephalosporins Allergy Unknown Verified 01/26/17 07:53 erythromycin base Allergy Unknown Verified 01/26/17 07:53 famciclovir Allergy Rash/Hives Verified 01/26/17 07:53 meropenem [From Merrem] Allergy Anaphylaxis Verified 01/26/17 07:53 nitrofurantoin Allergy Unknown Verified 01/26/17 07:53 [From Macrobid] nitrofurantoin Allergy Unknown Verified 01/26/17 07:53 macrocrystalline [From Macrobid] sulfamethoxazole Allergy Unknown Verified 01/26/17 07:53 [From Bactrim] trimethoprim [From Bactrim] Allergy Unknown Verified 01/26/17 07:53 Physical Exam Vitals: Vital Signs Temp Pulse Pulse Resp BP BP Pulse Ox 01/26/17 18:17 98.7 F 01/26/17 16:42 100 01/26/17 16:31 100 01/26/17 15:00 98.0 F 103 H 24 106/53 92 L 01/26/17 12:00 98.4 F 01/26/17 11:39 82 16 01/26/17 11:31 82 16 01/26/17 07:00 99.1 F 104 H 24 113/55 95 01/26/17 06:39 101.8 F H 112 H 20 89/56 96 01/26/17 05:27 120 H 18 107/51 96 01/26/17 04:14 101.7 F H 131 H 18 170/90 94 L 01/26/17 03:18 133 H 01/26/17 02:59 132 H 01/26/17 02:18 104.4 F H 18 L 20 188/92 92 L Intake and Output 01/26/17 01/26/17 01/26/17 06:59 14:59 22:59 Other: Voiding Method Indwelling Catheter Indwelling Catheter # Voids 1 Weight 143 kg 66 year old woman who suffers from superobesity who had a fever of 101.8 at the time of her admission she has now defervesced. She was feeling poorly at the time of admission with fever in the milky white urine HEENT: Anicteric conjunctiva are pink and moist nasal mucosa grossly intact without significant lesions, there is no thrush. Neck: The neck is supple without significant lymphadenopathy or thyromegaly. Lungs: Good bilateral air entry without significant crackles or wheezing. There is no significant bronchial sounds. There is no egophony or dullness. Heart: Regular rate and rhythm with an audible S1-S2, no S3 no S4. There is no significant murmur click or rub, PMI was nondisplaced. Abdomen: Obese, patient complains of distention. Underlying organomegaly is not palpable. She has some generalized discomfort in the lower quadrants. No palpable mass is noted. Extremities: The upper extremities have excellent pulses they are symmetric, no significant petechiae or telangiectasia. No splinter hemorrhages were noted. The lower extremities are free from significant edema. She complains of significant pain to the right heel where she has seen a communications field technician and a heel spur was noted. The peripheral pulses were 2+ and symmetric. Neuro: Awake alert oriented to person place and time. There are no acute new gross focal sensory motor deficits. But does have inability to ambulate due to the lower extremity weakness. Results CBC & Chem 7: 01/26/17 02:28 01/26/17 02:28 Labs: Abnormal Lab Results - Last 24 Hours (Table) 01/26/17 01/26/17 01/26/17 Range/Units 00:01 02:28 02:28 WBC 11.4 H (3.8-10.6) k/uL RBC 3.66 L (3.80-5.40) m/uL RDW 16.8 H (11.5-15.5) % Neutrophils # 10.2 H (1.3-7.7) k/uL Lymphocytes # 0.8 L (1.0-4.8) k/uL BUN 37 H (7-17) mg/dL Creatinine 1.10 H (0.52-1.04) mg/dL Glucose 192 H (74-99) mg/dL POC Glucose (mg/dL) (75-99) mg/dL Hemoglobin A1c (4.2-6.1) % Plasma Lactic Acid Kvng (0.7-2.0) mmol/L ALT 59 H (9-52) U/L Alkaline Phosphatase 194 H (38-126) U/L Urine Appearance Turbid H (Clear) Urine Protein 1+ H (Negative) Urine Blood Small H (Negative) Urine Nitrite Positive H (Negative) Ur Leukocyte Esterase Large H (Negative) Urine RBC 11 H (0-5) /hpf Urine WBC >182 H (0-5) /hpf Urine WBC Clumps Many H (None) /hpf Urine Bacteria Rare H (None) /hpf Urine Mucus Rare H (None) /hpf 01/26/17 01/26/17 01/26/17 Range/Units 02:28 02:28 07:26 WBC (3.8-10.6) k/uL RBC (3.80-5.40) m/uL RDW (11.5-15.5) % Neutrophils # (1.3-7.7) k/uL Lymphocytes # (1.0-4.8) k/uL BUN (7-17) mg/dL Creatinine (0.52-1.04) mg/dL Glucose (74-99) mg/dL POC Glucose (mg/dL) 216 H (75-99) mg/dL Hemoglobin A1c 7.5 H (4.2-6.1) % Plasma Lactic Acid Kvng 3.1 H* (0.7-2.0) mmol/L ALT (9-52) U/L Alkaline Phosphatase (38-126) U/L Urine Appearance (Clear) Urine Protein (Negative) Urine Blood (Negative) Urine Nitrite (Negative) Ur Leukocyte Esterase (Negative) Urine RBC (0-5) /hpf Urine WBC (0-5) /hpf Urine WBC Clumps (None) /hpf Urine Bacteria (None) /hpf Urine Mucus (None) /hpf 01/26/17 01/26/17 Range/Units 12:09 17:09 WBC (3.8-10.6) k/uL RBC (3.80-5.40) m/uL RDW (11.5-15.5) % Neutrophils # (1.3-7.7) k/uL Lymphocytes # (1.0-4.8) k/uL BUN (7-17) mg/dL Creatinine (0.52-1.04) mg/dL Glucose (74-99) mg/dL POC Glucose (mg/dL) 154 H 315 H (75-99) mg/dL Hemoglobin A1c (4.2-6.1) % Plasma Lactic Acid Kvng (0.7-2.0) mmol/L ALT (9-52) U/L Alkaline Phosphatase (38-126) U/L Urine Appearance (Clear) Urine Protein (Negative) Urine Blood (Negative) Urine Nitrite (Negative) Ur Leukocyte Esterase (Negative) Urine RBC (0-5) /hpf Urine WBC (0-5) /hpf Urine WBC Clumps (None) /hpf Urine Bacteria (None) /hpf Urine Mucus (None) /hpf Microbiology - Last 24 Hours (Table) 01/26/17 02:28 Blood Culture - Final Blood 01/26/17 00:01 Urine Culture - Preliminary Urine,Catheterized Laboratory Results WBC 11.4 k/uL (3.8-10.6) H 01/26/17 02:28 RBC 3.66 m/uL (3.80-5.40) L 01/26/17 02:28 Hgb 11.4 gm/dL (11.4-16.0) 01/26/17 02:28 Hct 36.1 % (34.0-46.0) 01/26/17 02:28 MCV 98.7 fL (80.0-100.0) 01/26/17 02:28 MCH 31.2 pg (25.0-35.0) 01/26/17 02:28 MCHC 31.6 g/dL (31.0-37.0) 01/26/17 02:28 RDW 16.8 % (11.5-15.5) H 01/26/17 02:28 Plt Count 265 k/uL (150-450) 01/26/17 02:28 Neutrophils % 90 % 01/26/17 02:28 Lymphocytes % 7 % 01/26/17 02:28 Monocytes % 2 % 01/26/17 02:28 Eosinophils % 1 % 01/26/17 02:28 Basophils % 0 % 01/26/17 02:28 Neutrophils # 10.2 k/uL (1.3-7.7) H 01/26/17 02:28 Lymphocytes # 0.8 k/uL (1.0-4.8) L 01/26/17 02:28 Monocytes # 0.2 k/uL (0-1.0) 01/26/17 02:28 Eosinophils # 0.1 k/uL (0-0.7) 01/26/17 02:28 Basophils # 0.0 k/uL (0-0.2) 01/26/17 02:28 Anisocytosis Slight 01/26/17 02:28 Macrocytosis Slight 01/26/17 02:28 PT 9.8 sec (9.0-12.0) 01/26/17 02:28 INR 1.0 (<1.2) 01/26/17 02:28 APTT 23.7 sec (22.0-30.0) 01/26/17 02:28 Sodium 138 mmol/L (137-145) 01/26/17 02:28 Potassium 4.7 mmol/L (3.5-5.1) 01/26/17 02:28 Chloride 99 mmol/L (98-107) 01/26/17 02:28 Carbon Dioxide 25 mmol/L (22-30) 01/26/17 02:28 Anion Gap 14 mmol/L 01/26/17 02:28 BUN 37 mg/dL (7-17) H 01/26/17 02:28 Creatinine 1.10 mg/dL (0.52-1.04) H 01/26/17 02:28 Est GFR (MDRD) Af Amer >60 (>60 ml/min/1.73 sqM) 01/26/17 02:28 Est GFR (MDRD) Non-Af 50 (>60 ml/min/1.73 sqM) 01/26/17 02:28 Glucose 192 mg/dL (74-99) H 01/26/17 02:28 POC Glucose (mg/dL) 315 mg/dL (75-99) H 01/26/17 17:09 POC Glu Composition [employer] Installer ID Maye Simmons 01/26/17 17:[address] Glu mg/dL 169 mg/dL 01/26/17 02:28 Hemoglobin A1c 7.5 % (4.2-6.1) H 01/26/17 02:28 Lactic Ac Sepsis Rflx Y 01/26/17 03:13 Plasma Lactic Acid Kvng 1.8 mmol/L (0.7-2.0) 01/26/17 06:49 Calcium 9.4 mg/dL (8.4-10.2) 01/26/17 02:28 Total Bilirubin 0.4 mg/dL (0.2-1.3) 01/26/17 02:28 AST 36 U/L (14-36) 01/26/17 02:28 ALT 59 U/L (9-52) H 01/26/17 02:28 Alkaline Phosphatase 194 U/L (38-126) H 01/26/17 02:28 Total Protein 7.3 g/dL (6.3-8.2) 01/26/17 02:28 Albumin 4.1 g/dL (3.5-5.0) 01/26/17 02:28 Lipase 174 U/L (23-300) 01/26/17 02:28 Urine Color Light Yellow 01/26/17 00:01 Urine Appearance Turbid (Clear) H 01/26/17 00:01 Urine pH 5.5 (5.0-8.0) 01/26/17 00:01 Ur Specific [place] 1.011 (1.001-1.035) 01/26/17 00:01 Urine Protein 1+ (Negative) H 01/26/17 00:01 Urine Glucose (UA) Negative (Negative) 01/26/17 00:01 Urine Ketones Negative (Negative) 01/26/17 00:01 Urine Blood Small (Negative) H 01/26/17 00:01 Urine Nitrite Positive (Negative) H 01/26/17 00:01 Urine Bilirubin Negative (Negative) 01/26/17 00:01 Urine Urobilinogen <2.0 mg/dL (<2.0) 01/26/17 00:01 Ur Leukocyte Esterase Large (Negative) H 01/26/17 00:01 Urine RBC 11 /hpf (0-5) H 01/26/17 00:01 Urine WBC >182 /hpf (0-5) H 01/26/17 00:01 Urine WBC Clumps Many /hpf (None) H 01/26/17 00:01 Urine Bacteria Rare /hpf (None) H 01/26/17 00:01 Urine Mucus Rare /hpf (None) H 01/26/17 00:01 Influenza Type A RNA Not Detected (Not Detectd) 01/26/17 03:34 Influenza Type B (PCR) Not Detected (Not Detectd) 01/26/17 03:34 Microbiology 01/26/17 02:28 Blood Blood Culture - Final 01/26/17 00:01 Urine,Catheterized Urine Culture - Preliminary Assessment and Plan (1) UTI (urinary tract infection) Narrative/Plan: 66-year-old male presents from home feeling poorly for the last few days. Posterior marked change in that her urine became milky white in color. Blood and urine cultures are in progress. Admission chest x-ray was also somewhat abnormal with the possibility of a right lower lobe atelectasis versus pneumonia. With this in her prior pathogens intravenous antibiotic therapy was Zosyn was started as well as levofloxacin until further culture data was available. With hydration and supportive care she's feeling somewhat better. We'll continue this for now. The leukocytosis is due to her current sepsis. And is being monitored. We'll continue ongoing supportive care she seems to be mostly comfortable at this point in time. Continue her BiPAP as before. Status: Acute (2) Leukocytosis Status: Acute (3) Sepsis Status: Acute
[2017-01-26] MEDS ORDERED: metFORMIN 500 MG TAB PO SCH (20:00)
[2017-01-26] MEDS ORDERED: INSULIN GLARGINE 100 UNIT/ML 10 ML VIAL SQ SCH (21:00)
[2017-01-26 21:04] LABS: Glucose,Whole Blood 358 mg/dL (75-99)
[2017-01-26] MEDS: SYMBICORT 160-4.5 MCG INHALER INHALATION SCH (21:06)
[2017-01-26] MEDS: IPRATROPIUM-ALBUTEROL 3 ML NEB INHALATION SCH (21:06)
[2017-01-26] MEDS: ASPIRIN 81 MG PO SCH (21:42)
[2017-01-26] MEDS: FUROSEMIDE 40 MG TAB PO SCH (21:42)
[2017-01-26] MEDS: BACLOFEN 10 MG TAB PO SCH (21:42)
[2017-01-26] MEDS: GABAPENTIN 300 MG CAP PO SCH (21:42)
[2017-01-26] MEDS: SPIRONOLACTONE 25 MG TAB PO SCH (21:43)
[2017-01-26] MEDS: VANCOMYCIN 2,000 MG in SODIUM CHLORIDE 0.9% 500 ML IVPB SCH (21:47)
[2017-01-26] MEDS: HEPARIN SODIUM,PORCINE 5,000 UNIT/ML 1 ML VIAL SQ SCH (21:48)
[2017-01-27 03:12] LABS: Glucose,Whole Blood 337 mg/dL (75-99)
[2017-01-27] MEDS: PIPERACILLIN-TAZOBACTAM 3.375 GM in DEXTROSE/WATER 1 50ML.BAG IVPB SCH ×3 (04:44→18:53)
[2017-01-27] MEDS: LEVOFLOXACIN 750MG-D5W PMX 750 MG in DEXTROSE/WATER 1 150ML.BAG IVPB SCH (06:35)
[2017-01-27] MEDS: methylPREDNISolone SOD SUCCI 125 MG/2 ML VIAL IV SCH ×2 (06:35→12:08)
[2017-01-27 07:42] LABS: Glucose,Whole Blood 323 mg/dL (75-99)
[2017-01-27] MEDS: IPRATROPIUM-ALBUTEROL 3 ML NEB INHALATION SCH ×2 (07:53→21:04)
[2017-01-27] MEDS: SYMBICORT 160-4.5 MCG INHALER INHALATION SCH ×2 (07:53→21:04)
[2017-01-27] MEDS: INSULIN LISPRO (humaLOG) 300 UNIT/3 ML VIAL SQ SCH ×4 (08:11→17:44)
[2017-01-27] MEDS: LORATADINE 10 MG TAB PO SCH (08:13)
[2017-01-27] MEDS: FUROSEMIDE 40 MG TAB PO SCH ×2 (08:16→21:23)
[2017-01-27] MEDS: GABAPENTIN 300 MG CAP PO SCH ×2 (08:16→21:23)
[2017-01-27] MEDS: BACLOFEN 10 MG TAB PO SCH ×2 (08:16→21:23)
[2017-01-27] MEDS: HEPARIN SODIUM,PORCINE 5,000 UNIT/ML 1 ML VIAL SQ SCH ×2 (08:16→21:25)
[2017-01-27] MEDS: CITALOPRAM HYDROBROMIDE 10 MG TAB PO SCH (08:17)
[2017-01-27] MEDS: MELOXICAM 7.5 MG TAB PO SCH (08:18)
[2017-01-27] MEDS: SPIRONOLACTONE 25 MG TAB PO SCH ×2 (08:19→21:25)
[2017-01-27] MEDS: MONTELUKAST 10 MG TAB PO SCH (08:19)
[2017-01-27 08:27] LABS: Anisocytosis Slight; Basophils # (A) 0.1 k/uL (0-0.2); Basophils % (A) 0 %; CH 30.7; CHCM 30.8; Eosinophils % (A) 0 %; HDW 2.65; Hypochromasia Slight; Luc % (Auto) 1; Lymphocytes # (A) 1.2 k/uL (1.0-4.8); Lymphocytes % (A) 6 %; MCH 31.2 pg (25.0-35.0); MCHC 31.2 g/dL (31.0-37.0); MCV 100.2 fL (80.0-100.0); Macrocytosis Slight; Mean Platelet Volume 8.3; Monocytes # (A) 0.5 k/uL (0-1.0); Monocytes % (A) 2 %; Neutrophils # (A) 18.9 k/uL (1.3-7.7); Neutrophils % (A) 91 %; RBC 3.19 m/uL (3.80-5.40); RDW 16.6 % (11.5-15.5); WBC 20.7 k/uL (3.8-10.6); WBC (Perox) 21.24
[2017-01-27 08:32] LABS: Calcium 9.3 mg/dL (8.4-10.2); Potassium 5.3 mmol/L (3.5-5.1)
[2017-01-27] MEDS: ASCORBIC ACID 500 MG TAB PO SCH (11:57)
[2017-01-27] MEDS: FERROUS SULFATE 325 MG TAB PO SCH (11:57)
[2017-01-27 12:04] LABS: Glucose,Whole Blood 336 mg/dL (75-99)
[2017-01-27] MEDS ORDERED: INSULIN REGULAR BOLUS (FROM DRIP BAG) IV ONE (12:12)
[2017-01-27] MEDS: INSULIN REGULAR 100 UNIT in SODIUM CHLORIDE 0.9% 100 ML IV SCH ×2 (12:46→21:31)
[2017-01-27 12:59] LABS: Glucose,Whole Blood 317 mg/dL (75-99)
[2017-01-27 13:23] LABS: Glucose,Whole Blood 258 mg/dL (75-99)
[2017-01-27 13:53] LABS: Glucose,Whole Blood 257 mg/dL (75-99)
[2017-01-27 14:56] LABS: Glucose,Whole Blood 190 mg/dL (75-99)
[2017-01-27] MEDS: HYDROcodone/APAP 5-325MG 1 EACH TAB PO PRN (14:56)
[2017-01-27] MEDS: methylPREDNISolone SOD SUCCI 40 MG/ML 1 ML VIAL IV SCH ×2 (15:55→23:37)
[2017-01-27 16:46] LABS: Glucose,Whole Blood 175 mg/dL (75-99)
--- NOTE | 2017-01-27 17:03 | PN ---
PROGRESS NOTE DATE OF SERVICE: 01/27/2017 This 66-year-old woman was admitted with fever, was thought to have UTI with sepsis. The patient also had elevated WBC. Patient also had elevated blood sugars more than more than 300 consistently. The patient being closely monitored. The patient also has significant bleeding on admission but currently improving at this time. PAST MEDICAL HISTORY: Reviewed. REVIEW OF SYSTEMS: CARDIOVASCULAR: No angina or palpitations. Respirations: No cough. GI as mentioned. no dysuria. Nervous system: No numbness, weakness. Allergy/Immunology: No asthma or hayfever. Musculoskeletal: As mentioned earlier. CURRENT MEDICATIONS ARE: Reviewed and include: 1. Tylenol 650 q.6h p.r.n. 2. [place] 5 mg q.6h p.r.n. 3. DuoNeb q.i.d. and p.r.n. 4. Vitamin C 1000 daily. 5. Aspirin 81 mg. 6. Lioresal. 7. Symbicort. 8. Celexa. 9. Vitamin D2. 10.Iron sulfate. 11.Lasix. 12.Neurontin. 13.Heparin. 14.Motrin. 15.Humalog. 16.Lac-Hydrin. 17.Levaquin. 18.Mobic. 19.Solu-Medrol. 20.Singulair. 21.Zosyn IV. 22.Aldactone. Doses are reviewed. Cultures are showing gram negative bacilli. PHYSICAL EXAM: Patient is alert, oriented x2. Pulse 87, blood pressure 100/74, respiratory 20, temperature 98.2, pulse ox 94% on 3 L. HEENT: Conjunctivae normal. Neck: No jugular venous distention. Cardiovascular: S1, S2 muffled. Respiratory: Breath sounds diminished in the bases. A few scattered rhonchi and crackles. ABDOMEN: Soft, obese, nontender. Legs: No edema. No swelling. Central nervous system: No focal deficits. LABORATORY DATA: Glucose 257 and 190. ASSESSMENT: 1. Acute urinary tract infection with sepsis with gram-negative bacilli, present on admission possibly secondary to underlying Stallings catheter. 2. Asthma chronic obstructive pulmonary disease acute exacerbation. 3. Diabetes type 2. Uncontrolled. 4. Hypertension. 5. Hyperlipidemia. 6. Paraplegia secondary to spinal surgery. 7. History ESBL E coli. RECOMMENDATIONS AND DISCUSSION: Recommend to continue current management. Continue with broad-spectrum IV antibiotics. Await final ID. Closely follow with Infectious Disease. Otherwise blood sugars are significantly elevated. Patient also has history of diabetes mellitus. I would also recommend to hold the home medications, home diabetic medications using insulin drip for better diabetic control at this time. Prognosis guarded. Discussed with staff at length. Repeat labs will be arranged. Creatinine is 1.7. Potassium noted and further recommendations to follow. See orders for details. The medications reviewed. Once again, the prognosis is guarded. Low potassium diet. See orders for details. MMODL / IJN: [id number] /
[2017-01-27 18:54] LABS: Glucose,Whole Blood 227 mg/dL (75-99)
[2017-01-27 21:00] LABS: Glucose,Whole Blood 204 mg/dL (75-99)
[2017-01-27] MEDS: VANCOMYCIN 2,000 MG in SODIUM CHLORIDE 0.9% 500 ML IVPB SCH ×2 (21:22→23:37)
[2017-01-27] MEDS: ASPIRIN 81 MG PO SCH (21:23)
[2017-01-27] MEDS: POLYETHYLENE GLYCOL 3350 17 GM POWD.PACK PO SCH (21:25)
[2017-01-27] MEDS: SENNOSIDES 8.6 MG TAB PO SCH (22:22)
[2017-01-27 23:53] LABS: Glucose,Whole Blood 289 mg/dL (75-99)
[2017-01-28 02:29] LABS: Glucose,Whole Blood 229 mg/dL (75-99)
[2017-01-28 04:24] LABS: Glucose,Whole Blood 180 mg/dL (75-99)
[2017-01-28] MEDS: PIPERACILLIN-TAZOBACTAM 3.375 GM in DEXTROSE/WATER 1 50ML.BAG IVPB SCH ×3 (04:27→18:01)
[2017-01-28 06:21] LABS: Glucose,Whole Blood 163 mg/dL (75-99)
[2017-01-28 07:47] LABS: Anisocytosis Slight; Basophils % (A) 0 %; CH 31.4; CHCM 31.6; Eosinophils % (A) 0 %; Glucose,Whole Blood 166 mg/dL (75-99); HCT 31.5 % (34.0-46.0); HDW 2.55; HGB 9.7 gm/dL (11.4-16.0); Luc # (Auto) 0.21; Luc % (Auto) 1; Lymphocytes # (A) 1.4 k/uL (1.0-4.8); Lymphocytes % (A) 9 %; MCH 30.8 pg (25.0-35.0); MCHC 30.8 g/dL (31.0-37.0); MCV 99.8 fL (80.0-100.0); Macrocytosis Slight; Mean Platelet Volume 8.4; Monocytes # (A) 0.6 k/uL (0-1.0); Monocytes % (A) 4 %; Neutrophils % (A) 85 %; RBC 3.15 m/uL (3.80-5.40); RDW 16.6 % (11.5-15.5); WBC 15.3 k/uL (3.8-10.6); WBC (Perox) 16.01
[2017-01-28 08:09] LABS: Calcium 9.6 mg/dL (8.4-10.2); Potassium 4.9 mmol/L (3.5-5.1)
[2017-01-28] MEDS: POLYETHYLENE GLYCOL 3350 17 GM POWD.PACK PO SCH ×2 (08:14→20:42)
[2017-01-28] MEDS: GABAPENTIN 300 MG CAP PO SCH ×2 (08:14→20:42)
[2017-01-28] MEDS: MELOXICAM 7.5 MG TAB PO SCH (08:15)
[2017-01-28] MEDS: HEPARIN SODIUM,PORCINE 5,000 UNIT/ML 1 ML VIAL SQ SCH ×2 (08:15→20:42)
[2017-01-28] MEDS: MONTELUKAST 10 MG TAB PO SCH (08:15)
[2017-01-28] MEDS: CITALOPRAM HYDROBROMIDE 10 MG TAB PO SCH (08:16)
[2017-01-28] MEDS: BACLOFEN 10 MG TAB PO SCH ×2 (08:16→20:42)
[2017-01-28] MEDS: LORATADINE 10 MG TAB PO SCH (08:16)
[2017-01-28] MEDS: FUROSEMIDE 40 MG TAB PO SCH ×2 (08:16→20:41)
[2017-01-28] MEDS: SPIRONOLACTONE 25 MG TAB PO SCH ×2 (08:17→20:42)
[2017-01-28] MEDS: methylPREDNISolone SOD SUCCI 40 MG/ML 1 ML VIAL IV SCH (08:17)
[2017-01-28] MEDS: HYDROcodone/APAP 5-325MG 1 EACH TAB PO PRN ×2 (08:26→14:37)
[2017-01-28] MEDS: LEVOFLOXACIN 750MG-D5W PMX 750 MG in DEXTROSE/WATER 1 150ML.BAG IVPB SCH (08:31)
[2017-01-28] MEDS: INSULIN LISPRO (humaLOG) 300 UNIT/3 ML VIAL SQ SCH ×3 (08:37→17:58)
[2017-01-28] MEDS: IPRATROPIUM-ALBUTEROL 3 ML NEB INHALATION SCH ×2 (09:00→21:03)
[2017-01-28] MEDS: SYMBICORT 160-4.5 MCG INHALER INHALATION SCH ×2 (09:00→21:03)
[2017-01-28 10:01] LABS: Glucose,Whole Blood 354 mg/dL (75-99)
[2017-01-28] MEDS: INSULIN REGULAR 100 UNIT in SODIUM CHLORIDE 0.9% 100 ML IV SCH ×5 (10:36→17:59)
[2017-01-28 11:40] LABS: Glucose,Whole Blood 280 mg/dL (75-99)
[2017-01-28 12:11] LABS: Glucose,Whole Blood 239 mg/dL (75-99)
[2017-01-28] MEDS: ASCORBIC ACID 500 MG TAB PO SCH (12:25)
[2017-01-28] MEDS: FERROUS SULFATE 325 MG TAB PO SCH (12:25)
[2017-01-28 14:33] LABS: Glucose,Whole Blood 199 mg/dL (75-99)
[2017-01-28 15:38] LABS: Glucose,Whole Blood 180 mg/dL (75-99)
[2017-01-28 17:21] LABS: Glucose,Whole Blood 132 mg/dL (75-99)
--- NOTE | 2017-01-28 17:37 | PN ---
PROGRESS NOTE DATE OF SERVICE: 01/28/2017 This 66-year-old woman who was admitted with acute urinary tract infection with sepsis with E coli grown from the blood and urine. Patient also had COPD acute exacerbation and is on high-dose IV steroids. No chest pain. No palpitations. No fever. The patient is closely monitored at this time. PAST MEDICAL HISTORY: Reviewed. REVIEW OF SYSTEMS: CARDIOVASCULAR: No angina. RESPIRATORY: As mentioned earlier. GI: As mentioned earlier. : No dysuria. NERVOUS SYSTEM: No numbness, weakness. CURRENT MEDICATIONS: 1. Tylenol 650 q.6h p.r.n. 2. [place] 5 mg q.6 p.r.n. 3. DuoNeb q.i.d. and p.r.n. 4. Vitamin C. 5. Lioresal. 6. Symbicort. 7. Celexa. 8. Vitamin D2. 9. Lasix. 10.Neurontin. 11.Heparin. 12.Levaquin. 13.Reglan. 14.Zosyn IV. 15.Aldactone p.r.n. 16.Medications doses are reviewed. PHYSICAL EXAMINATION: Alert and oriented x3. Pulse 78, blood pressure 120/62, respiration 18, temperature 97 degrees, pulse ox 91% on 3 L. HEENT: Conjunctivae normal. NECK: No jugular venous distention. CARDIOVASCULAR: S1, S2 RESPIRATORY: Breath sounds diminished in the bases. Bilateral scattered rhonchi and crackles. ABDOMEN: Soft, obese, nontender. No mass palpable. LEGS: No edema, no cyanosis. NERVOUS SYSTEM: No focal deficits. LABS: WBC 15, hemoglobin is 9.7, creatinine is 1.28. ASSESSMENT: 1. Acute urinary tract infection with sepsis with gram-negative bacilli possibly E. coli present on admission, secondary to indwelling catheter. 2. Asthma, chronic obstructive pulmonary disease acute exacerbation. 3. Diabetes mellitus type 2, uncontrolled on insulin drip. 4. Hypertension. 5. Hyperlipidemia. 6. Paraplegia secondary to spine surgery. 7. History of ESBL E coli. RECOMMENDATIONS AND DISCUSSION: I recommend to continue current management. Continue symptomatic treatment. continue with broad-spectrum IV antibiotics. I will taper the steroids further and however continue the insulin drip since the blood sugar is extremely high. Will probably cover the patient with insulin drip overnight and resume the home medications in the morning and stop the drip with blood sugars fairly well controlled. Otherwise watch for hypoglycemia. Discussed with staff at length and guarded prognosis because of multiple complex medical issues. Further recommendations to follow. MMODL / IJN: [id number] /
[2017-01-28 19:51] LABS: Glucose,Whole Blood 208 mg/dL (75-99)
[2017-01-28] MEDS: SENNOSIDES 8.6 MG TAB PO SCH (20:42)
[2017-01-28] MEDS: TEMAZEPAM 15 MG CAP PO SCH (20:42)
[2017-01-28] MEDS: ASPIRIN 81 MG PO SCH (20:42)
[2017-01-28 22:19] LABS: Glucose,Whole Blood 329 mg/dL (75-99)
[2017-01-28] MEDS: VANCOMYCIN 2,000 MG in SODIUM CHLORIDE 0.9% 500 ML IVPB SCH (23:42)
[2017-01-29 00:32] LABS: Glucose,Whole Blood 160 mg/dL (75-99)
[2017-01-29 02:31] LABS: Glucose,Whole Blood 142 mg/dL (75-99)
[2017-01-29] MEDS: INSULIN REGULAR 100 UNIT in SODIUM CHLORIDE 0.9% 100 ML IV SCH (03:23)
[2017-01-29] MEDS: PIPERACILLIN-TAZOBACTAM 3.375 GM in DEXTROSE/WATER 1 50ML.BAG IVPB SCH ×3 (03:25→18:46)
[2017-01-29] MEDS: LEVOFLOXACIN 750MG-D5W PMX 750 MG in DEXTROSE/WATER 1 150ML.BAG IVPB SCH (04:29)
[2017-01-29 04:46] LABS: Glucose,Whole Blood 116 mg/dL (75-99)
[2017-01-29 06:26] LABS: Glucose,Whole Blood 126 mg/dL (75-99)
[2017-01-29 06:26] LABS: Glucose,Whole Blood 124 mg/dL (75-99)
[2017-01-29 07:45] LABS: Glucose,Whole Blood 133 mg/dL (75-99)
[2017-01-29] MEDS: INSULIN LISPRO (humaLOG) 300 UNIT/3 ML VIAL SQ SCH ×6 (07:58→21:55)
[2017-01-29] MEDS: FUROSEMIDE 40 MG TAB PO SCH ×2 (07:59→21:43)
[2017-01-29] MEDS: BACLOFEN 10 MG TAB PO SCH ×2 (07:59→21:43)
[2017-01-29] MEDS: CITALOPRAM HYDROBROMIDE 10 MG TAB PO SCH (07:59)
[2017-01-29] MEDS: HEPARIN SODIUM,PORCINE 5,000 UNIT/ML 1 ML VIAL SQ SCH ×2 (08:00→21:44)
[2017-01-29] MEDS: GABAPENTIN 300 MG CAP PO SCH ×2 (08:00→21:44)
[2017-01-29] MEDS: MELOXICAM 7.5 MG TAB PO SCH (08:00)
[2017-01-29] MEDS: POLYETHYLENE GLYCOL 3350 17 GM POWD.PACK PO SCH ×2 (08:00→21:44)
[2017-01-29] MEDS: LORATADINE 10 MG TAB PO SCH (08:00)
[2017-01-29] MEDS: MONTELUKAST 10 MG TAB PO SCH (08:00)
[2017-01-29] MEDS: predniSONE 10 MG TAB PO SCH (08:01)
[2017-01-29] MEDS: SPIRONOLACTONE 25 MG TAB PO SCH ×2 (08:01→21:45)
[2017-01-29] MEDS: SYMBICORT 160-4.5 MCG INHALER INHALATION SCH ×2 (08:28→19:32)
[2017-01-29] MEDS: IPRATROPIUM-ALBUTEROL 3 ML NEB INHALATION SCH ×2 (08:28→19:34)
[2017-01-29 09:33] LABS: Glucose,Whole Blood 197 mg/dL (75-99)
[2017-01-29 10:11] LABS: Basophils % (A) 0 %; CHCM 30.5; Eosinophils % (A) 0 %; HCT 31.9 % (34.0-46.0); HGB 9.7 gm/dL (11.4-16.0); Hypochromasia Moderate; Luc # (Auto) 0.33; Luc % (Auto) 3; Lymphocytes % (A) 24 %; MCH 30.1 pg (25.0-35.0); MCHC 30.5 g/dL (31.0-37.0); Macrocytosis Slight; Mean Platelet Volume 7.4; Monocytes # (A) 0.6 k/uL (0-1.0); Monocytes % (A) 4 %; Neutrophils # (A) 8.6 k/uL (1.3-7.7); Neutrophils % (A) 69 %; RBC 3.22 m/uL (3.80-5.40); RDW 15.5 % (11.5-15.5); WBC 12.6 k/uL (3.8-10.6); WBC (Perox) 12.98
[2017-01-29 10:32] LABS: Calcium 9.4 mg/dL (8.4-10.2); Potassium 4.3 mmol/L (3.5-5.1)
[2017-01-29] MEDS: ASCORBIC ACID 500 MG TAB PO SCH (11:03)
[2017-01-29] MEDS: FERROUS SULFATE 325 MG TAB PO SCH (11:03)
[2017-01-29 11:05] LABS: Glucose,Whole Blood 176 mg/dL (75-99)
[2017-01-29] MEDS: INSULIN GLARGINE 100 UNIT/ML 10 ML VIAL SQ SCH ×2 (12:19→17:40)
[2017-01-29] MEDS: metFORMIN 500 MG TAB PO SCH ×2 (12:45→17:30)
--- NOTE | 2017-01-29 16:03 | P.PN ---
Subjective Progress Note Date: 01/29/17 Progress note being dictated for Dr. Garcia Interval history: This is 66-year-old female admitted with acute UTI with sepsis , E. coli present in both blood and urine cultures, acute COPD exacerbation and multiple other medical issues. Breathing significantly improved. IV steroids weaned to oral. Blood sugars controlled. Maintained on IV antibiotics as per infectious disease. Creatinine 1.4. Afebrile. Objective - Vital Signs Vital signs: Vital Signs Temp 97.2 F L 01/29/17 07:00 Pulse 68 01/29/17 08:44 Resp 18 01/29/17 08:28 BP 124/72 01/29/17 07:00 Pulse Ox 98 01/29/17 07:00 Intake & Output 01/28/17 01/29/17 01/29/17 18:59 06:59 18:59 Intake Total 1138.083 76.517 11.817 Output Total 2800 2950 Balance -1661.917 -2873.483 11.817 Weight 143 kg Intake: Intake, IV Titration 88.083 76.517 11.817 Amount Insulin Regular 100 unit 88.083 76.517 11.817 In Sodium Chloride 0.9% 100 ml @ Titrate IV .Q0M [facility] Rx#:[id number] Oral 1050 Output: Urine 2800 2950 Uretheral (Stallings) 400 Other: Voiding Method Indwelling Catheter Indwelling Catheter # Voids 1 2 - Exam PHYSICAL EXAM: VITAL SIGNS: As above GENERAL: Sitting up in bed, no acute distress HEENT: Conjunctivae normal. eyes normal. NECK: No JVD. No thyroid enlargement. No LNs CARDIOVASCULAR: S1, S2 muffled. No murmur RESPIRATION: Breath sounds diminished in the bases. No rhonchi or crackles. No bronchial breathing. ABDOMEN: Soft, nontender . No guarding. no masses palpable. No ascites, No hepatosplenomegaly.Bowel sounds heard. LEGS: No edema. no swelling PSYCHIATRY: Alert and oriented -3, mood and affect normal. NERVOUS SYSTEM: Paraplegic ;No focal deficits. Skin: no ulcer no rash; right lower leg mild pinkness Joints: No active swelling. No inflammation. Lymphatic system. No LN neck axilla or groin. Microbiology 01/26/17 00:01 Urine,Catheterized Urine Culture - Final Escherichia coli Enterobacter aerogenes 01/26/17 02:28 Blood Blood Culture Gram Stain - Final 01/26/17 02:28 Blood Blood Culture - Final Escherichia coli 01/26/17 02:28 Blood Blood Culture - Final - Labs CBC & Chem 7: 01/29/17 09:23 01/29/17 09:23 Labs: Abnormal Lab Results - Last 24 Hours (Table) 01/28/17 01/28/17 01/28/17 Range/Units 15:36 17:14 19:49 WBC (3.8-10.6) k/uL RBC (3.80-5.40) m/uL Hgb (11.4-16.0) gm/dL Hct (34.0-46.0) % MCHC (31.0-37.0) g/dL Neutrophils # (1.3-7.7) k/uL BUN (7-17) mg/dL Creatinine (0.52-1.04) mg/dL Glucose (74-99) mg/dL POC Glucose (mg/dL) 180 H 132 H 208 H (75-99) mg/dL 01/28/17 01/29/17 01/29/17 Range/Units 22:17 00:29 02:27 WBC (3.8-10.6) k/uL RBC (3.80-5.40) m/uL Hgb (11.4-16.0) gm/dL Hct (34.0-46.0) % MCHC (31.0-37.0) g/dL Neutrophils # (1.3-7.7) k/uL BUN (7-17) mg/dL Creatinine (0.52-1.04) mg/dL Glucose (74-99) mg/dL POC Glucose (mg/dL) 329 H 160 H 142 H (75-99) mg/dL 01/29/17 01/29/17 01/29/17 Range/Units 04:33 05:47 06:12 WBC (3.8-10.6) k/uL RBC (3.80-5.40) m/uL Hgb (11.4-16.0) gm/dL Hct (34.0-46.0) % MCHC (31.0-37.0) g/dL Neutrophils # (1.3-7.7) k/uL BUN (7-17) mg/dL Creatinine (0.52-1.04) mg/dL Glucose (74-99) mg/dL POC Glucose (mg/dL) 116 H 124 H 126 H (75-99) mg/dL 01/29/17 01/29/17 01/29/17 Range/Units 07:23 09:13 09:23 WBC 12.6 H (3.8-10.6) k/uL RBC 3.22 L (3.80-5.40) m/uL Hgb 9.7 L (11.4-16.0) gm/dL Hct 31.9 L (34.0-46.0) % MCHC 30.5 L (31.0-37.0) g/dL Neutrophils # 8.6 H (1.3-7.7) k/uL BUN (7-17) mg/dL Creatinine (0.52-1.04) mg/dL Glucose (74-99) mg/dL POC Glucose (mg/dL) 133 H 197 H (75-99) mg/dL 01/29/17 01/29/17 Range/Units 09:23 11:02 WBC (3.8-10.6) k/uL RBC (3.80-5.40) m/uL Hgb (11.4-16.0) gm/dL Hct (34.0-46.0) % MCHC (31.0-37.0) g/dL Neutrophils # (1.3-7.7) k/uL BUN 48 H (7-17) mg/dL Creatinine 1.40 H (0.52-1.04) mg/dL Glucose 198 H (74-99) mg/dL POC Glucose (mg/dL) 176 H (75-99) mg/dL Microbiology - Last 24 Hours (Table) 01/26/17 00:01 Urine Culture - Final Urine,Catheterized Escherichia coli Enterobacter aerogenes Assessment and Plan Plan: 1. Acute UTI with sepsis with E. coli, secondary to indwelling catheter, present on admission and E. coli bacteremia. 2. [ Asthma,COPD, acute exacerbation]. 3. [ Diabetes mellitus type 2,controlled 4. [ Hypertension]. 5. [ HyperLipidemia]. 6. 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 7. [ History of ESBL E. coli]. Plan: Continue on current medication regime ,monitoring and symptomatic treatment. Maintain oral steroids, close monitoring of Accu-Cheks as home med regime has been resumed. Antibiotics as per infectious disease. Repeat blood cultures ordered. Prognosis guarded given multiple complex medical issues. The impression and plan of care has been dictated as directed. : I performed a history and examination of this patient, discussed the same with the dictator. I agree with the dictator's note ,documented as a scribe. Any additional findings or plans will be noted.
[2017-01-29 17:24] LABS: Glucose,Whole Blood 293 mg/dL (75-99)
--- NOTE | 2017-01-29 19:36 | P.PN ---
Subjective Progress Note Date: 01/29/17 Principal diagnosis: Malaise and fatigue 66-year-old female who suffers from superobesity and paraplegia presents to the emergency center relating that her urine has turned milky cloudy white. She was not feeling well at least for the last couple of days. She was having generalized malaise and low-grade fever without chills or rigors. She's had some minimal cough. She suddenly was not feeling well and constantly was brought to Hospital by EMS. She this time relates that she is feeling somewhat better. She's been able to rest in the bed although it's a bit firm she's doing well with her BiPAP in place. She is denying further fever , chills or rigors. Is still very weak and has not been able to eat her meals. However is denying nausea or emesis. History and feels somewhat better today. Still has a poor appetite. However fevers chills and rigors of improved. She is aware that her urine has now become clear. Lower extremity edema is less uncomfortable. Objective - Vital Signs Vital signs: Vital Signs Temp 97.9 F 01/29/17 15:00 Pulse 80 01/29/17 15:00 Resp 16 01/29/17 15:00 BP 123/64 01/29/17 15:00 Pulse Ox 96 01/29/17 15:00 Intake & Output 01/29/17 01/29/17 01/30/17 06:59 18:59 06:59 Intake Total 76.517 11.817 Output Total 2950 1900 Balance -2873.483 -1888.183 Intake: Intake, IV Titration 76.517 11.817 Amount Insulin Regular 100 unit 76.517 11.817 In Sodium Chloride 0.9% 100 ml @ Titrate IV .Q0M [facility] Rx#:[id number] Output: Urine 2950 1900 Other: Voiding Method Indwelling Catheter # Voids 2 # Bowel Movements 0 - Exam 66 year old woman who suffers from superobesity who had a fever of 101.8 at the time of her admission she has now defervesced. She was feeling poorly at the time of admission with fever in the milky white urine HEENT: Anicteric conjunctiva are pink and moist nasal mucosa grossly intact without significant lesions, there is no thrush. Neck: The neck is supple without significant lymphadenopathy or thyromegaly. Lungs: Good bilateral air entry without significant crackles or wheezing. There is no significant bronchial sounds. There is no egophony or dullness. Heart: Regular rate and rhythm with an audible S1-S2, no S3 no S4. There is no significant murmur click or rub, PMI was nondisplaced. Abdomen: Obese, patient complains of distention. Underlying organomegaly is not palpable. She has some generalized discomfort in the lower quadrants. No palpable mass is noted. Extremities: The upper extremities have excellent pulses they are symmetric, no significant petechiae or telangiectasia. No splinter hemorrhages were noted. F some trace edema. There is minimal erythema to the right lower extremity pretibial surface without evidence of any blistering or ulceration. She complains of significant pain to the right heel where she has seen a hotel reservation agent and a heel spur was noted. The peripheral pulses were 2+ and symmetric. Neuro: Awake alert oriented to person place and time. There are no acute new gross focal sensory motor deficits. But does have inability to ambulate due to the lower extremity weakness. - Labs CBC & Chem 7: 01/29/17 09:23 01/29/17 09:23 Labs: Abnormal Lab Results - Last 24 Hours (Table) 01/28/17 01/28/17 01/29/17 Range/Units 19:49 22:17 00:29 WBC (3.8-10.6) k/uL RBC (3.80-5.40) m/uL Hgb (11.4-16.0) gm/dL Hct (34.0-46.0) % MCHC (31.0-37.0) g/dL Neutrophils # (1.3-7.7) k/uL BUN (7-17) mg/dL Creatinine (0.52-1.04) mg/dL Glucose (74-99) mg/dL POC Glucose (mg/dL) 208 H 329 H 160 H (75-99) mg/dL 01/29/17 01/29/17 01/29/17 Range/Units 02:27 04:33 05:47 WBC (3.8-10.6) k/uL RBC (3.80-5.40) m/uL Hgb (11.4-16.0) gm/dL Hct (34.0-46.0) % MCHC (31.0-37.0) g/dL Neutrophils # (1.3-7.7) k/uL BUN (7-17) mg/dL Creatinine (0.52-1.04) mg/dL Glucose (74-99) mg/dL POC Glucose (mg/dL) 142 H 116 H 124 H (75-99) mg/dL 01/29/17 01/29/17 01/29/17 Range/Units 06:12 07:23 09:13 WBC (3.8-10.6) k/uL RBC (3.80-5.40) m/uL Hgb (11.4-16.0) gm/dL Hct (34.0-46.0) % MCHC (31.0-37.0) g/dL Neutrophils # (1.3-7.7) k/uL BUN (7-17) mg/dL Creatinine (0.52-1.04) mg/dL Glucose (74-99) mg/dL POC Glucose (mg/dL) 126 H 133 H 197 H (75-99) mg/dL 01/29/17 01/29/17 01/29/17 Range/Units 09:23 09:23 11:02 WBC 12.6 H (3.8-10.6) k/uL RBC 3.22 L (3.80-5.40) m/uL Hgb 9.7 L (11.4-16.0) gm/dL Hct 31.9 L (34.0-46.0) % MCHC 30.5 L (31.0-37.0) g/dL Neutrophils # 8.6 H (1.3-7.7) k/uL BUN 48 H (7-17) mg/dL Creatinine 1.40 H (0.52-1.04) mg/dL Glucose 198 H (74-99) mg/dL POC Glucose (mg/dL) 176 H (75-99) mg/dL 01/29/17 Range/Units 17:15 WBC (3.8-10.6) k/uL RBC (3.80-5.40) m/uL Hgb (11.4-16.0) gm/dL Hct (34.0-46.0) % MCHC (31.0-37.0) g/dL Neutrophils # (1.3-7.7) k/uL BUN (7-17) mg/dL Creatinine (0.52-1.04) mg/dL Glucose (74-99) mg/dL POC Glucose (mg/dL) 293 H (75-99) mg/dL Microbiology - Last 24 Hours (Table) 01/26/17 00:01 Urine Culture - Final Urine,Catheterized Escherichia coli Enterobacter aerogenes Laboratory Results WBC 12.6 k/uL (3.8-10.6) H 01/29/17 09:23 RBC 3.22 m/uL (3.80-5.40) L 01/29/17 09:23 Hgb 9.7 gm/dL (11.4-16.0) L 01/29/17 09:23 Hct 31.9 % (34.0-46.0) L 01/29/17 09:23 MCV 99.0 fL (80.0-100.0) 01/29/17 09:23 MCH 30.1 pg (25.0-35.0) 01/29/17 09:23 MCHC 30.5 g/dL (31.0-37.0) L 01/29/17 09:23 RDW 15.5 % (11.5-15.5) 01/29/17 09:23 Plt Count 299 k/uL (150-450) 01/29/17 09:23 Neutrophils % 69 % 01/29/17 09:23 Lymphocytes % 24 % 01/29/17 09:23 Monocytes % 4 % 01/29/17 09:23 Eosinophils % 0 % 01/29/17 09:23 Basophils % 0 % 01/29/17 09:23 Neutrophils # 8.6 k/uL (1.3-7.7) H 01/29/17 09:23 Lymphocytes # 3.0 k/uL (1.0-4.8) 01/29/17 09:23 Monocytes # 0.6 k/uL (0-1.0) 01/29/17 09:23 Eosinophils # 0.0 k/uL (0-0.7) 01/29/17 09:23 Basophils # 0.0 k/uL (0-0.2) 01/29/17 09:23 Hypochromasia Moderate 01/29/17 09:23 Anisocytosis Slight 01/28/17 07:26 Macrocytosis Slight 01/29/17 09:23 PT 9.8 sec (9.0-12.0) 01/26/17 02:28 INR 1.0 (<1.2) 01/26/17 02:28 APTT 23.7 sec (22.0-30.0) 01/26/17 02:28 Sodium 140 mmol/L (137-145) 01/29/17 09:23 Potassium 4.3 mmol/L (3.5-5.1) 01/29/17 09:23 Chloride 104 mmol/L (98-107) 01/29/17 09:23 Carbon Dioxide 23 mmol/L (22-30) 01/29/17 09:23 Anion Gap 13 mmol/L 01/29/17 09:23 BUN 48 mg/dL (7-17) H 01/29/17 09:23 Creatinine 1.40 mg/dL (0.52-1.04) H 01/29/17 09:23 Est GFR (MDRD) Af Amer 46 (>60 ml/min/1.73 sqM) 01/29/17 09:23 Est GFR (MDRD) Non-Af 38 (>60 ml/min/1.73 sqM) 01/29/17 09:23 Glucose 198 mg/dL (74-99) H 01/29/17 09:23 POC Glucose (mg/dL) 293 mg/dL (75-99) H 01/29/17 17:15 POC Glu Patient Case Coordinator ID 01/29/17 17:[address] Glu mg/dL 169 mg/dL 01/26/17 02:28 Hemoglobin A1c 7.5 % (4.2-6.1) H 01/26/17 02:28 Lactic Ac Sepsis Rflx Y 01/26/17 03:13 Plasma Lactic Acid Kvng 1.8 mmol/L (0.7-2.0) 01/26/17 06:49 Calcium 9.4 mg/dL (8.4-10.2) 01/29/17 09:23 Total Bilirubin 0.4 mg/dL (0.2-1.3) 01/26/17 02:28 AST 36 U/L (14-36) 01/26/17 02:28 ALT 59 U/L (9-52) H 01/26/17 02:28 Alkaline Phosphatase 194 U/L (38-126) H 01/26/17 02:28 Total Protein 7.3 g/dL (6.3-8.2) 01/26/17 02:28 Albumin 4.1 g/dL (3.5-5.0) 01/26/17 02:28 Lipase 174 U/L (23-300) 01/26/17 02:28 Urine Color Light Yellow 01/26/17 00:01 Urine Appearance Turbid (Clear) H 01/26/17 00:01 Urine pH 5.5 (5.0-8.0) 01/26/17 00:01 Ur Specific [place] 1.011 (1.001-1.035) 01/26/17 00:01 Urine Protein 1+ (Negative) H 01/26/17 00:01 Urine Glucose (UA) Negative (Negative) 01/26/17 00:01 Urine Ketones Negative (Negative) 01/26/17 00:01 Urine Blood Small (Negative) H 01/26/17 00:01 Urine Nitrite Positive (Negative) H 01/26/17 00:01 Urine Bilirubin Negative (Negative) 01/26/17 00:01 Urine Urobilinogen <2.0 mg/dL (<2.0) 01/26/17 00:01 Ur Leukocyte Esterase Large (Negative) H 01/26/17 00:01 Urine RBC 11 /hpf (0-5) H 01/26/17 00:01 Urine WBC >182 /hpf (0-5) H 01/26/17 00:01 Urine WBC Clumps Many /hpf (None) H 01/26/17 00:01 Urine Bacteria Rare /hpf (None) H 01/26/17 00:01 Urine Mucus Rare /hpf (None) H 01/26/17 00:01 Influenza Type A RNA Not Detected (Not Detectd) 01/26/17 03:34 Influenza Type B (PCR) Not Detected (Not Detectd) 01/26/17 03:34 Microbiology 01/26/17 00:01 Urine,Catheterized Urine Culture - Final Escherichia coli Enterobacter aerogenes 01/26/17 02:28 Blood Blood Culture Gram Stain - Final 01/26/17 02:28 Blood Blood Culture - Final Escherichia coli 01/26/17 02:28 Blood Blood Culture - Final Assessment and Plan (1) UTI (urinary tract infection) Narrative/Plan: 66-year-old male presents from home feeling poorly for the last few days. Posterior marked change in that her urine became milky white in color. Blood and urine cultures are in progress. Admission chest x-ray was also somewhat abnormal with the possibility of a right lower lobe atelectasis versus pneumonia. With this in her prior pathogens intravenous antibiotic therapy was Zosyn was started as well as levofloxacin until further culture data was available. With hydration and supportive care she's feeling somewhat better. We'll continue this for now. The leukocytosis is due to her current sepsis. But is improving. And is being monitored. She is feeling better. However there was possible cultures. Follow blood culture requested. Antimicrobial therapies D escalated to levofloxacin for the isolated Escherichia coli in the blood and Enterobacter aerogenes also in the urine. We'll continue ongoing supportive care she seems to be mostly comfortable at this point in time. Continue her BiPAP as before. Status: Acute (2) Leukocytosis Status: Acute (3) Sepsis Status: Acute
[2017-01-29 20:42] LABS: Glucose,Whole Blood 166 mg/dL (75-99)
[2017-01-29] MEDS: ASPIRIN 81 MG PO SCH (21:43)
[2017-01-29] MEDS: SENNOSIDES 8.6 MG TAB PO SCH (21:44)
[2017-01-29] MEDS: TEMAZEPAM 15 MG CAP PO SCH (21:52)
[2017-01-29] MEDS ORDERED: VANCOMYCIN TROUGH DUE 1 EACH MISC MISCELLANE ONE (23:00)
[2017-01-30] MEDS: SYMBICORT 160-4.5 MCG INHALER INHALATION SCH ×2 (07:30→20:18)
[2017-01-30] MEDS: IPRATROPIUM-ALBUTEROL 3 ML NEB INHALATION SCH ×2 (07:30→20:17)
[2017-01-30 08:08] LABS: Glucose,Whole Blood 160 mg/dL (75-99)
[2017-01-30] MEDS: POLYETHYLENE GLYCOL 3350 17 GM POWD.PACK PO SCH (08:12)
[2017-01-30] MEDS: SPIRONOLACTONE 25 MG TAB PO SCH ×2 (08:13→21:16)
[2017-01-30] MEDS: predniSONE 10 MG TAB PO SCH (08:13)
[2017-01-30] MEDS: INSULIN LISPRO (humaLOG) 300 UNIT/3 ML VIAL SQ SCH ×7 (08:13→21:17)
[2017-01-30] MEDS: FUROSEMIDE 40 MG TAB PO SCH ×2 (08:14→21:17)
[2017-01-30] MEDS: metFORMIN 500 MG TAB PO SCH ×2 (08:14→17:45)
[2017-01-30] MEDS: GABAPENTIN 300 MG CAP PO SCH ×2 (08:14→21:17)
[2017-01-30] MEDS: CITALOPRAM HYDROBROMIDE 10 MG TAB PO SCH (08:14)
[2017-01-30] MEDS: BACLOFEN 10 MG TAB PO SCH ×2 (08:14→21:17)
[2017-01-30] MEDS: HEPARIN SODIUM,PORCINE 5,000 UNIT/ML 1 ML VIAL SQ SCH ×2 (08:15→21:16)
[2017-01-30] MEDS: MONTELUKAST 10 MG TAB PO SCH (08:15)
[2017-01-30] MEDS: LORATADINE 10 MG TAB PO SCH (08:15)
[2017-01-30 09:24] LABS: Anisocytosis Slight; Basophils # (A) 0.1 k/uL (0-0.2); Basophils % (A) 0 %; CH 31.5; CHCM 31.4; Eosinophils # (A) 0.1 k/uL (0-0.7); Eosinophils % (A) 1 %; HCT 36.7 % (34.0-46.0); HDW 2.53; HGB 11.2 gm/dL (11.4-16.0); Hypochromasia Slight; Luc # (Auto) 0.21; Luc % (Auto) 2; Lymphocytes # (A) 3.8 k/uL (1.0-4.8); Lymphocytes % (A) 34 %; MCH 30.8 pg (25.0-35.0); MCHC 30.6 g/dL (31.0-37.0); MCV 100.6 fL (80.0-100.0); Macrocytosis Slight; Mean Platelet Volume 7.8; Monocytes # (A) 0.6 k/uL (0-1.0); Monocytes % (A) 5 %; Neutrophils # (A) 6.4 k/uL (1.3-7.7); Neutrophils % (A) 58 %; RBC 3.65 m/uL (3.80-5.40); RDW 16.5 % (11.5-15.5); WBC (Perox) 10.29
[2017-01-30 09:29] LABS: Calcium 9.2 mg/dL (8.4-10.2); Potassium 4.3 mmol/L (3.5-5.1)
[2017-01-30] MEDS ORDERED: BISACODYL 10 MG SUPP RECTAL STA (10:16)
[2017-01-30] MEDS ORDERED: NA PHOS,M-B/NA PHOS,DI-BA 133 ML ENEMA RECTAL ONE (11:02)
[2017-01-30] MEDS: FERROUS SULFATE 325 MG TAB PO SCH (11:29)
[2017-01-30] MEDS: ASCORBIC ACID 500 MG TAB PO SCH (11:29)
[2017-01-30] MEDS: LACTULOSE 20 GM/30 ML CUP PO SCH ×3 (11:58→21:18)
[2017-01-30 12:24] LABS: Glucose,Whole Blood 226 mg/dL (75-99)
--- NOTE | 2017-01-30 16:28 | P.PN ---
Subjective Progress Note Date: 01/30/17 Progress note being dictated for Dr. Gee Interval history: This is 66-year-old female admitted with acute UTI with sepsis , E. coli present in both blood and urine cultures, acute COPD exacerbation and multiple other medical issues. Breathing significantly improved. IV steroids weaned to oral. Blood sugars controlled. Maintained on IV antibiotics as per infectious disease. Creatinine 1.4. Afebrile. 01/30/2017 complains of constipation, passing flatus. Wearing on BiPAP at night. Breathing continues to improve. IV antibiotics as per infectious disease. Repeat blood cultures in progress. Afebrile, WBC improving. Objective - Vital Signs Vital signs: Vital Signs Temp 98.4 F 01/30/17 15:00 Pulse 82 01/30/17 15:00 Resp 20 01/30/17 15:00 BP 128/62 01/30/17 15:00 Pulse Ox 92 L 01/30/17 15:00 Intake & Output 01/29/17 01/30/17 01/30/17 18:59 06:59 18:59 Intake Total 11.817 Output Total 1900 1550 1200 Balance -1888.183 -1550 -1200 Intake: Intake, IV Titration 11.817 Amount Insulin Regular 100 unit 11.817 In Sodium Chloride 0.9% 100 ml @ Titrate IV .Q0M [facility] Rx#:[id number] Output: Urine 1900 1550 1200 Other: Voiding Method Indwelling Catheter Indwelling Catheter Indwelling Catheter # Bowel Movements 0 - Exam PHYSICAL EXAM: VITAL SIGNS: As above GENERAL: Sitting up in bed, no acute distress HEENT: Conjunctivae normal. eyes normal. Oral mucosa moist NECK: No JVD. No thyroid enlargement. No LNs CARDIOVASCULAR: S1, S2 muffled. No murmur RESPIRATION: Breath sounds diminished in the bases. No rhonchi or crackles. ABDOMEN: Soft, nontender . No guarding. no masses palpable.Bowel sounds heard. LEGS: No edema. no swelling PSYCHIATRY: Alert and oriented -3, mood and affect normal. NERVOUS SYSTEM: Paraplegic ;No focal deficits. Skin: no ulcer no rash Joints: No active swelling. No inflammation. Microbiology 01/29/17 13:09 Blood Blood Culture - Preliminary No Growth after 24 hours 01/29/17 12:16 Blood Blood Culture - Preliminary No Growth after 24 hours 01/26/17 00:01 Urine,Catheterized Urine Culture - Final Escherichia coli Enterobacter aerogenes 01/26/17 02:28 Blood Blood Culture Gram Stain - Final 01/26/17 02:28 Blood Blood Culture - Final Escherichia coli 01/26/17 02:28 Blood Blood Culture - Final - Labs CBC & Chem 7: 01/30/17 08:55 01/30/17 08:55 Labs: Abnormal Lab Results - Last 24 Hours (Table) 01/29/17 01/29/17 01/30/17 Range/Units 17:15 20:31 07:34 WBC (3.8-10.6) k/uL RBC (3.80-5.40) m/uL Hgb (11.4-16.0) gm/dL MCV (80.0-100.0) fL MCHC (31.0-37.0) g/dL RDW (11.5-15.5) % BUN (7-17) mg/dL Creatinine (0.52-1.04) mg/dL Glucose (74-99) mg/dL POC Glucose (mg/dL) 293 H 166 H 160 H (75-99) mg/dL 01/30/17 01/30/17 01/30/17 Range/Units 08:55 08:55 12:20 WBC 11.0 H (3.8-10.6) k/uL RBC 3.65 L (3.80-5.40) m/uL Hgb 11.2 L (11.4-16.0) gm/dL MCV 100.6 H (80.0-100.0) fL MCHC 30.6 L (31.0-37.0) g/dL RDW 16.5 H (11.5-15.5) % BUN 55 H (7-17) mg/dL Creatinine 1.46 H (0.52-1.04) mg/dL Glucose 205 H (74-99) mg/dL POC Glucose (mg/dL) 226 H (75-99) mg/dL Microbiology - Last 24 Hours (Table) 01/29/17 13:09 Blood Culture - Preliminary Blood No Growth after 24 hours 01/29/17 12:16 Blood Culture - Preliminary Blood No Growth after 24 hours 01/26/17 00:01 Urine Culture - Final Urine,Catheterized Escherichia coli Enterobacter aerogenes Assessment and Plan Plan: 1. Acute UTI with sepsis with E. coli, secondary to indwelling catheter, present on admission and E. coli bacteremia. 2. [ Asthma,COPD, acute exacerbation]. 3. [ Diabetes mellitus type 2,controlled 4. [ Hypertension]. 5. [ HyperLipidemia]. 6. 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 7. [ History of ESBL E. coli]. Plan: Continue on current medication regime ,monitoring and symptomatic treatment. Soapsuds enemas, fleets, ordered for constipation. Lantus and pre- meal insulin increased as sugars slightly higher today, low 200s . Antibiotics as per infectious disease. Follow Repeat blood cultures closely . Prognosis guarded given multiple complex medical issues. PT/OT , passive range of motion and transfer to chair: Patient especially chair unavailable.. The impression and plan of care has been dictated as directed. : I performed a history and examination of this patient, discussed the same with the dictator. I agree with the dictator's note ,documented as a scribe. Any additional findings or plans will be noted.
[2017-01-30 17:19] LABS: Glucose,Whole Blood 231 mg/dL (75-99)
[2017-01-30] MEDS ORDERED: SENNOSIDES 8.6 MG TAB PO SCH (21:00)
[2017-01-30 21:12] LABS: Glucose,Whole Blood 185 mg/dL (75-99)
[2017-01-30] MEDS: TEMAZEPAM 15 MG CAP PO SCH (21:15)
[2017-01-30] MEDS: INSULIN GLARGINE 100 UNIT/ML 10 ML VIAL SQ SCH (21:16)
[2017-01-30] MEDS: ASPIRIN 81 MG PO SCH (21:18)
[2017-01-30] MEDS: HYDROcodone/APAP 5-325MG 1 EACH TAB PO PRN (21:19)
--- NOTE | 2017-01-30 22:09 | P.PN ---
Subjective Progress Note Date: 01/30/17 Principal diagnosis: Malaise and fatigue 66-year-old female who suffers from superobesity and paraplegia presents to the emergency center relating that her urine has turned milky cloudy white. She was not feeling well at least for the last couple of days. She was having generalized malaise and low-grade fever without chills or rigors. She's had some minimal cough. She suddenly was not feeling well and constantly was brought to Hospital by EMS. She this time relates that she is feeling somewhat better. She's been able to rest in the bed although it's a bit firm she's doing well with her BiPAP in place. She is denying further fever , chills or rigors. Is still very weak and has not been able to eat her meals. However is denying nausea or emesis. Still has a poor appetite. However fevers chills and rigors of improved. She definitely feels better today She is aware that her urine has now become clear. Lower extremity edema is less uncomfortable. Objective - Vital Signs Vital signs: Vital Signs Temp 97.2 F L 01/30/17 16:05 Pulse 74 01/30/17 20:33 Resp 21 01/30/17 16:05 BP 118/56 01/30/17 16:05 Pulse Ox 96 01/30/17 16:05 Intake & Output 01/30/17 01/30/17 01/31/17 06:59 18:59 06:59 Output Total 1550 1200 Balance -1550 -1200 Output: Urine 1550 1200 Other: Voiding Method Indwelling Catheter Indwelling Catheter - Exam 66 year old woman who suffers from superobesity who had a fever of 101.8 at the time of her admission she has now defervesced. She was feeling poorly at the time of admission with fever in the milky white urine HEENT: Anicteric conjunctiva are pink and moist nasal mucosa grossly intact without significant lesions, there is no thrush. Neck: The neck is supple without significant lymphadenopathy or thyromegaly. Lungs: Good bilateral air entry without significant crackles or wheezing. There is no significant bronchial sounds. There is no egophony or dullness. Heart: Regular rate and rhythm with an audible S1-S2, no S3 no S4. There is no significant murmur click or rub, PMI was nondisplaced. Abdomen: Obese, patient complains of distention. Underlying organomegaly is not palpable. She has some generalized discomfort in the lower quadrants. No palpable mass is noted. Extremities: The upper extremities have excellent pulses they are symmetric, no significant petechiae or telangiectasia. No splinter hemorrhages were noted. F some trace edema. There is minimal erythema to the right lower extremity pretibial surface without evidence of any blistering or ulceration. She complains of significant pain to the right heel where she has seen a textile technical officer and a heel spur was noted. The peripheral pulses were 2+ and symmetric. Neuro: Awake alert oriented to person place and time. There are no acute new gross focal sensory motor deficits. But does have inability to ambulate due to the lower extremity weakness. - Labs CBC & Chem 7: 01/30/17 08:55 01/30/17 08:55 Labs: Abnormal Lab Results - Last 24 Hours (Table) 01/30/17 01/30/17 01/30/17 Range/Units 07:34 08:55 08:55 WBC 11.0 H (3.8-10.6) k/uL RBC 3.65 L (3.80-5.40) m/uL Hgb 11.2 L (11.4-16.0) gm/dL MCV 100.6 H (80.0-100.0) fL MCHC 30.6 L (31.0-37.0) g/dL RDW 16.5 H (11.5-15.5) % BUN 55 H (7-17) mg/dL Creatinine 1.46 H (0.52-1.04) mg/dL Glucose 205 H (74-99) mg/dL POC Glucose (mg/dL) 160 H (75-99) mg/dL 01/30/17 01/30/17 01/30/17 Range/Units 12:20 17:11 21:06 WBC (3.8-10.6) k/uL RBC (3.80-5.40) m/uL Hgb (11.4-16.0) gm/dL MCV (80.0-100.0) fL MCHC (31.0-37.0) g/dL RDW (11.5-15.5) % BUN (7-17) mg/dL Creatinine (0.52-1.04) mg/dL Glucose (74-99) mg/dL POC Glucose (mg/dL) 226 H 231 H 185 H (75-99) mg/dL Microbiology - Last 24 Hours (Table) 01/29/17 13:09 Blood Culture - Preliminary Blood No Growth after 24 hours 01/29/17 12:16 Blood Culture - Preliminary Blood No Growth after 24 hours Laboratory Results WBC 11.0 k/uL (3.8-10.6) H 01/30/17 08:55 RBC 3.65 m/uL (3.80-5.40) L 01/30/17 08:55 Hgb 11.2 gm/dL (11.4-16.0) L 01/30/17 08:55 Hct 36.7 % (34.0-46.0) 01/30/17 08:55 MCV 100.6 fL (80.0-100.0) H 01/30/17 08:55 MCH 30.8 pg (25.0-35.0) 01/30/17 08:55 MCHC 30.6 g/dL (31.0-37.0) L 01/30/17 08:55 RDW 16.5 % (11.5-15.5) H 01/30/17 08:55 Plt Count 294 k/uL (150-450) 01/30/17 08:55 Neutrophils % 58 % 01/30/17 08:55 Lymphocytes % 34 % 01/30/17 08:55 Monocytes % 5 % 01/30/17 08:55 Eosinophils % 1 % 01/30/17 08:55 Basophils % 0 % 01/30/17 08:55 Neutrophils # 6.4 k/uL (1.3-7.7) 01/30/17 08:55 Lymphocytes # 3.8 k/uL (1.0-4.8) 01/30/17 08:55 Monocytes # 0.6 k/uL (0-1.0) 01/30/17 08:55 Eosinophils # 0.1 k/uL (0-0.7) 01/30/17 08:55 Basophils # 0.1 k/uL (0-0.2) 01/30/17 08:55 Hypochromasia Slight 01/30/17 08:55 Anisocytosis Slight 01/30/17 08:55 Macrocytosis Slight 01/30/17 08:55 PT 9.8 sec (9.0-12.0) 01/26/17 02:28 INR 1.0 (<1.2) 01/26/17 02:28 APTT 23.7 sec (22.0-30.0) 01/26/17 02:28 Sodium 140 mmol/L (137-145) 01/30/17 08:55 Potassium 4.3 mmol/L (3.5-5.1) 01/30/17 08:55 Chloride 101 mmol/L (98-107) 01/30/17 08:55 Carbon Dioxide 27 mmol/L (22-30) 01/30/17 08:55 Anion Gap 12 mmol/L 01/30/17 08:55 BUN 55 mg/dL (7-17) H 01/30/17 08:55 Creatinine 1.46 mg/dL (0.52-1.04) H 01/30/17 08:55 Est GFR (MDRD) Af Amer 43 (>60 ml/min/1.73 sqM) 01/30/17 08:55 Est GFR (MDRD) Non-Af 36 (>60 ml/min/1.73 sqM) 01/30/17 08:55 Glucose 205 mg/dL (74-99) H 01/30/17 08:55 POC Glucose (mg/dL) 185 mg/dL (75-99) H 01/30/17 21:06 POC Glu Insurance Agency Manager RORO Dasha Dick 01/30/17 21:[address] Glu mg/dL 169 mg/dL 01/26/17 02:28 Hemoglobin A1c 7.5 % (4.2-6.1) H 01/26/17 02:28 Lactic Ac Sepsis Rflx Y 01/26/17 03:13 Plasma Lactic Acid Kvng 1.8 mmol/L (0.7-2.0) 01/26/17 06:49 Calcium 9.2 mg/dL (8.4-10.2) 01/30/17 08:55 Total Bilirubin 0.4 mg/dL (0.2-1.3) 01/26/17 02:28 AST 36 U/L (14-36) 01/26/17 02:28 ALT 59 U/L (9-52) H 01/26/17 02:28 Alkaline Phosphatase 194 U/L (38-126) H 01/26/17 02:28 Total Protein 7.3 g/dL (6.3-8.2) 01/26/17 02:28 Albumin 4.1 g/dL (3.5-5.0) 01/26/17 02:28 Lipase 174 U/L (23-300) 01/26/17 02:28 Urine Color Light Yellow 01/26/17 00:01 Urine Appearance Turbid (Clear) H 01/26/17 00:01 Urine pH 5.5 (5.0-8.0) 01/26/17 00:01 Ur Specific [place] 1.011 (1.001-1.035) 01/26/17 00:01 Urine Protein 1+ (Negative) H 01/26/17 00:01 Urine Glucose (UA) Negative (Negative) 01/26/17 00:01 Urine Ketones Negative (Negative) 01/26/17 00:01 Urine Blood Small (Negative) H 01/26/17 00:01 Urine Nitrite Positive (Negative) H 01/26/17 00:01 Urine Bilirubin Negative (Negative) 01/26/17 00:01 Urine Urobilinogen <2.0 mg/dL (<2.0) 01/26/17 00:01 Ur Leukocyte Esterase Large (Negative) H 01/26/17 00:01 Urine RBC 11 /hpf (0-5) H 01/26/17 00:01 Urine WBC >182 /hpf (0-5) H 01/26/17 00:01 Urine WBC Clumps Many /hpf (None) H 01/26/17 00:01 Urine Bacteria Rare /hpf (None) H 01/26/17 00:01 Urine Mucus Rare /hpf (None) H 01/26/17 00:01 Influenza Type A RNA Not Detected (Not Detectd) 01/26/17 03:34 Influenza Type B (PCR) Not Detected (Not Detectd) 01/26/17 03:34 Microbiology 01/29/17 13:09 Blood Blood Culture - Preliminary No Growth after 24 hours 01/29/17 12:16 Blood Blood Culture - Preliminary No Growth after 24 hours 01/26/17 00:01 Urine,Catheterized Urine Culture - Final Escherichia coli Enterobacter aerogenes 01/26/17 02:28 Blood Blood Culture Gram Stain - Final 01/26/17 02:28 Blood Blood Culture - Final Escherichia coli 01/26/17 02:28 Blood Blood Culture - Final Assessment and Plan (1) UTI (urinary tract infection) Narrative/Plan: 66-year-old male presents from home feeling poorly for the last few days. Posterior marked change in that her urine became milky white in color. Blood and urine cultures are in progress. Admission chest x-ray was also somewhat abnormal with the possibility of a right lower lobe atelectasis versus pneumonia. With this in her prior pathogens intravenous antibiotic therapy was Zosyn was started as well as levofloxacin until further culture data was available. With hydration and supportive care she's feeling somewhat better. We'll continue this for now. The leukocytosis is due to her current sepsis. But is improving. And is being monitored. She is feeling better. However there was positive cultures. Follow blood culture requested. Antimicrobial therapies descalated to levofloxacin for the isolated Escherichia coli in the blood and Enterobacter aerogenes also in the urine. We'll continue ongoing supportive care she seems to be mostly comfortable at this point in time. Continue her BiPAP as before. Current Visit: Yes Status: Acute Code(s): N39.0 - URINARY TRACT INFECTION, SITE NOT SPECIFIED SNOMED Code(s): 73928604 (2) Leukocytosis Current Visit: Yes Status: Acute Code(s): D72.829 - ELEVATED WHITE BLOOD CELL COUNT, UNSPECIFIED SNOMED Code(s): 202095199 (3) Sepsis Current Visit: Yes Status: Acute Code(s): A41.9 - SEPSIS, UNSPECIFIED ORGANISM SNOMED Code(s): 13484447
[2017-01-31] MEDS: SYMBICORT 160-4.5 MCG INHALER INHALATION SCH ×2 (07:20→20:37)
[2017-01-31] MEDS: IPRATROPIUM-ALBUTEROL 3 ML NEB INHALATION SCH ×2 (07:20→20:37)
[2017-01-31 07:24] LABS: Glucose,Whole Blood 142 mg/dL (75-99)
[2017-01-31] MEDS: INSULIN LISPRO (humaLOG) 300 UNIT/3 ML VIAL SQ SCH ×7 (07:48→21:33)
[2017-01-31] MEDS: metFORMIN 500 MG TAB PO SCH ×2 (07:49→17:32)
[2017-01-31] MEDS: HEPARIN SODIUM,PORCINE 5,000 UNIT/ML 1 ML VIAL SQ SCH ×2 (07:49→21:32)
[2017-01-31] MEDS: CITALOPRAM HYDROBROMIDE 10 MG TAB PO SCH (07:50)
[2017-01-31] MEDS: FUROSEMIDE 40 MG TAB PO SCH ×2 (07:50→21:32)
[2017-01-31] MEDS: BACLOFEN 10 MG TAB PO SCH ×2 (07:50→21:32)
[2017-01-31] MEDS: GABAPENTIN 300 MG CAP PO SCH ×2 (07:51→21:32)
[2017-01-31] MEDS: MONTELUKAST 10 MG TAB PO SCH (07:51)
[2017-01-31] MEDS: SPIRONOLACTONE 25 MG TAB PO SCH ×2 (07:51→21:32)
[2017-01-31] MEDS: LACTULOSE 20 GM/30 ML CUP PO SCH ×4 (07:51→21:37)
[2017-01-31] MEDS: LORATADINE 10 MG TAB PO SCH (07:51)
[2017-01-31] MEDS: predniSONE 10 MG TAB PO SCH (07:51)
[2017-01-31] MEDS ORDERED: LEVOFLOXACIN 750MG-D5W PMX 750 MG in DEXTROSE/WATER 1 150ML.BAG IVPB SCH (08:00)
[2017-01-31 08:45] LABS: Anisocytosis Slight; Basophils # (A) 0.1 k/uL (0-0.2); Basophils % (A) 0 %; CH 31.4; Eosinophils # (A) 0.2 k/uL (0-0.7); Eosinophils % (A) 1 %; HCT 36.7 % (34.0-46.0); HDW 2.56; HGB 11.5 gm/dL (11.4-16.0); Luc # (Auto) 0.22; Luc % (Auto) 2; Lymphocytes # (A) 4.2 k/uL (1.0-4.8); Lymphocytes % (A) 32 %; MCH 30.8 pg (25.0-35.0); MCHC 31.3 g/dL (31.0-37.0); MCV 98.4 fL (80.0-100.0); Macrocytosis Slight; Mean Platelet Volume 7.9; Monocytes # (A) 0.5 k/uL (0-1.0); Monocytes % (A) 4 %; Neutrophils # (A) 7.9 k/uL (1.3-7.7); Neutrophils % (A) 61 %; RBC 3.73 m/uL (3.80-5.40); RDW 16.4 % (11.5-15.5); WBC (Perox) 13.09
[2017-01-31 09:00] LABS: Calcium 9.5 mg/dL (8.4-10.2); Potassium 4.3 mmol/L (3.5-5.1)
[2017-01-31] MEDS: IPRATROPIUM-ALBUTEROL 3 ML NEB INHALATION PRN (11:44)
[2017-01-31] MEDS: FERROUS SULFATE 325 MG TAB PO SCH (12:17)
[2017-01-31] MEDS: ASCORBIC ACID 500 MG TAB PO SCH (12:17)
[2017-01-31 12:21] LABS: Glucose,Whole Blood 204 mg/dL (75-99)
[2017-01-31 17:27] LABS: Glucose,Whole Blood 244 mg/dL (75-99)
[2017-01-31] MEDS ORDERED: MINERAL OIL 133 ML ENEMA RECTAL STA (17:55)
--- NOTE | 2017-01-31 18:04 | P.PN ---
Subjective Progress Note Date: 01/31/17 Progress note being dictated for Dr. Gee Interval history: This is 66-year-old female admitted with acute UTI with sepsis , E. coli present in both blood and urine cultures, acute COPD exacerbation and multiple other medical issues. Breathing significantly improved. IV steroids weaned to oral. Blood sugars controlled. Maintained on IV antibiotics as per infectious disease. Creatinine 1.4. Afebrile. 01/30/2017 complains of constipation, passing flatus. Wearing on BiPAP at night. Breathing continues to improve. IV antibiotics as per infectious disease. Repeat blood cultures in progress. Afebrile, WBC improving. 01/31/2017 passing small amounts of stool. Breathing much improved. Awaiting finalization of repeat blood cultures. Maintained on IV antibiotics as per infectious disease. Afebrile. Creatinine significantly improved. Blood sugars ranging from 130s to 250s. Objective - Vital Signs Vital signs: Vital Signs Temp 97.4 F L 01/31/17 16:23 Pulse 90 01/31/17 16:23 Resp 21 01/31/17 16:23 BP 136/63 01/31/17 16:23 Pulse Ox 95 01/31/17 16:23 Intake & Output 01/30/17 01/31/17 01/31/17 18:59 06:59 18:59 Intake Total 200 Output Total 1200 1400 1000 Balance -1200 -1200 -1000 Intake: Oral 200 Output: Urine 1200 1400 1000 Other: Voiding Method Indwelling Catheter Indwelling Catheter Indwelling Catheter # Voids 1 - Exam PHYSICAL EXAM: VITAL SIGNS: As above GENERAL: Sitting up in bed, no acute distress HEENT: Conjunctivae normal. eyes normal. Oral mucosa moist NECK: No JVD. No thyroid enlargement. No LNs CARDIOVASCULAR: S1, S2 muffled. No murmur RESPIRATION: Breath sounds diminished in the bases. No rhonchi or crackles. ABDOMEN: Soft, nontender . No guarding. no masses palpable.Bowel sounds heard. LEGS: No edema. no swelling PSYCHIATRY: Alert and oriented -3, mood and affect normal. NERVOUS SYSTEM: Paraplegic ;No focal deficits. Microbiology 01/29/17 13:09 Blood Blood Culture - Preliminary No Growth after 48 hours 01/29/17 12:16 Blood Blood Culture - Preliminary No Growth after 48 hours 01/26/17 00:01 Urine,Catheterized Urine Culture - Final Escherichia coli Enterobacter aerogenes 01/26/17 02:28 Blood Blood Culture Gram Stain - Final 01/26/17 02:28 Blood Blood Culture - Final Escherichia coli 01/26/17 02:28 Blood Blood Culture - Final - Labs CBC & Chem 7: 01/31/17 08:11 01/31/17 08:11 Labs: Abnormal Lab Results - Last 24 Hours (Table) 01/30/17 01/31/17 01/31/17 Range/Units 21:06 06:50 08:11 WBC 13.0 H (3.8-10.6) k/uL RBC 3.73 L (3.80-5.40) m/uL RDW 16.4 H (11.5-15.5) % Neutrophils # 7.9 H (1.3-7.7) k/uL BUN (7-17) mg/dL Creatinine (0.52-1.04) mg/dL Glucose (74-99) mg/dL POC Glucose (mg/dL) 185 H 142 H (75-99) mg/dL 01/31/17 01/31/17 01/31/17 Range/Units 08:11 12:04 17:06 WBC (3.8-10.6) k/uL RBC (3.80-5.40) m/uL RDW (11.5-15.5) % Neutrophils # (1.3-7.7) k/uL BUN 53 H (7-17) mg/dL Creatinine 1.17 H (0.52-1.04) mg/dL Glucose 134 H (74-99) mg/dL POC Glucose (mg/dL) 204 H 244 H (75-99) mg/dL Microbiology - Last 24 Hours (Table) 01/29/17 13:09 Blood Culture - Preliminary Blood No Growth after 48 hours 01/29/17 12:16 Blood Culture - Preliminary Blood No Growth after 48 hours Assessment and Plan Plan: 1. Acute UTI with sepsis with E. coli, secondary to indwelling catheter, present on admission and E. coli bacteremia. 2. [ Asthma,COPD, acute exacerbation]. 3. [ Diabetes mellitus type 2,controlled 4. [ Hypertension]. 5. [ HyperLipidemia]. 6. 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 7. [ History of ESBL E. coli]. Plan: Continue on current medication regime ,monitoring and symptomatic treatment. Repeat Soapsuds enemas, fleets. Lantus increased, close monitoring of Accu-Cheks. Antibiotics as per infectious disease. Repeat blood cultures in progress, awaiting finalization . Prognosis guarded given multiple complex medical issues. The impression and plan of care has been dictated as directed. : I performed a history and examination of this patient, discussed the same with the dictator. I agree with the dictator's note ,documented as a scribe. Any additional findings or plans will be noted.
[2017-01-31 20:48] LABS: Glucose,Whole Blood 116 mg/dL (75-99)
[2017-01-31] MEDS: ASPIRIN 81 MG PO SCH (21:32)
[2017-01-31] MEDS: BISACODYL 10 MG SUPP RECTAL SCH (21:53)
[2017-01-31] MEDS: INSULIN GLARGINE 100 UNIT/ML 10 ML VIAL SQ SCH (21:53)
[2017-01-31] MEDS: SENNOSIDES-DOCUSATE SODIUM 1 EACH TAB PO SCH (21:53)
[2017-01-31] MEDS: TEMAZEPAM 15 MG CAP PO SCH (21:54)
--- NOTE | 2017-01-31 23:48 | P.PN ---
Subjective Progress Note Date: 01/31/17 Principal diagnosis: Malaise and fatigue 66-year-old female who suffers from superobesity and paraplegia presents to the emergency center relating that her urine has turned milky cloudy white. She was not feeling well at least for the last couple of days. She was having generalized malaise and low-grade fever without chills or rigors. She's had some minimal cough. She suddenly was not feeling well and constantly was brought to Hospital by EMS. She this time relates that she is feeling somewhat better. She's been able to rest in the bed although it's a bit firm she's doing well with her BiPAP in place. She is denying further fever , chills or rigors. Is still very weak and has not been able to eat her meals. However is denying nausea or emesis. Still has a poor appetite. However fevers chills and rigors are resolved. She definitely feels better today She is aware that her urine has now become clear. Lower extremity edema is less uncomfortable. Objective - Vital Signs Vital signs: Vital Signs Temp 97.4 F L 01/31/17 16:23 Pulse 78 01/31/17 20:47 Resp 21 01/31/17 17:00 BP 136/63 01/31/17 16:23 Pulse Ox 95 01/31/17 16:23 Intake & Output 01/31/17 01/31/17 02/01/17 06:59 18:59 06:59 Intake Total 200 Output Total 1400 1000 Balance -1200 -1000 Intake: Oral 200 Output: Urine 1400 1000 Other: Voiding Method Indwelling Catheter Indwelling Catheter # Voids 1 - Exam 66 year old woman who suffers from superobesity who had a fever of 101.8 at the time of her admission she has now defervesced. She was feeling poorly at the time of admission with fever in the milky white urine HEENT: Anicteric conjunctiva are pink and moist nasal mucosa grossly intact without significant lesions, there is no thrush. Neck: The neck is supple without significant lymphadenopathy or thyromegaly. Lungs: Good bilateral air entry without significant crackles or wheezing. There is no significant bronchial sounds. There is no egophony or dullness. Heart: Regular rate and rhythm with an audible S1-S2, no S3 no S4. There is no significant murmur click or rub, PMI was nondisplaced. Abdomen: Obese, patient complains of distention. Underlying organomegaly is not palpable. She has some generalized discomfort in the lower quadrants. No palpable mass is noted. Extremities: The upper extremities have excellent pulses they are symmetric, no significant petechiae or telangiectasia. No splinter hemorrhages were noted. F some trace edema. There is minimal erythema to the right lower extremity pretibial surface without evidence of any blistering or ulceration. She complains of significant pain to the right heel where she has seen a cylinder press feeder and a heel spur was noted. The peripheral pulses were 2+ and symmetric. Neuro: Awake alert oriented to person place and time. There are no acute new gross focal sensory motor deficits. But does have inability to ambulate due to the lower extremity weakness. - Labs CBC & Chem 7: 01/31/17 08:11 01/31/17 08:11 Labs: Abnormal Lab Results - Last 24 Hours (Table) 01/31/17 01/31/17 01/31/17 Range/Units 06:50 08:11 08:11 WBC 13.0 H (3.8-10.6) k/uL RBC 3.73 L (3.80-5.40) m/uL RDW 16.4 H (11.5-15.5) % Neutrophils # 7.9 H (1.3-7.7) k/uL BUN 53 H (7-17) mg/dL Creatinine 1.17 H (0.52-1.04) mg/dL Glucose 134 H (74-99) mg/dL POC Glucose (mg/dL) 142 H (75-99) mg/dL 01/31/17 01/31/17 01/31/17 Range/Units 12:04 17:06 20:42 WBC (3.8-10.6) k/uL RBC (3.80-5.40) m/uL RDW (11.5-15.5) % Neutrophils # (1.3-7.7) k/uL BUN (7-17) mg/dL Creatinine (0.52-1.04) mg/dL Glucose (74-99) mg/dL POC Glucose (mg/dL) 204 H 244 H 116 H (75-99) mg/dL Microbiology - Last 24 Hours (Table) 01/29/17 13:09 Blood Culture - Preliminary Blood No Growth after 48 hours 01/29/17 12:16 Blood Culture - Preliminary Blood No Growth after 48 hours Laboratory Results WBC 13.0 k/uL (3.8-10.6) H 01/31/17 08:11 RBC 3.73 m/uL (3.80-5.40) L 01/31/17 08:11 Hgb 11.5 gm/dL (11.4-16.0) 01/31/17 08:11 Hct 36.7 % (34.0-46.0) 01/31/17 08:11 MCV 98.4 fL (80.0-100.0) 01/31/17 08:11 MCH 30.8 pg (25.0-35.0) 01/31/17 08:11 MCHC 31.3 g/dL (31.0-37.0) 01/31/17 08:11 RDW 16.4 % (11.5-15.5) H 01/31/17 08:11 Plt Count 307 k/uL (150-450) 01/31/17 08:11 Neutrophils % 61 % 01/31/17 08:11 Lymphocytes % 32 % 01/31/17 08:11 Monocytes % 4 % 01/31/17 08:11 Eosinophils % 1 % 01/31/17 08:11 Basophils % 0 % 01/31/17 08:11 Neutrophils # 7.9 k/uL (1.3-7.7) H 01/31/17 08:11 Lymphocytes # 4.2 k/uL (1.0-4.8) 01/31/17 08:11 Monocytes # 0.5 k/uL (0-1.0) 01/31/17 08:11 Eosinophils # 0.2 k/uL (0-0.7) 01/31/17 08:11 Basophils # 0.1 k/uL (0-0.2) 01/31/17 08:11 Hypochromasia Slight 01/30/17 08:55 Anisocytosis Slight 01/31/17 08:11 Macrocytosis Slight 01/31/17 08:11 PT 9.8 sec (9.0-12.0) 01/26/17 02:28 INR 1.0 (<1.2) 01/26/17 02:28 APTT 23.7 sec (22.0-30.0) 01/26/17 02:28 Sodium 140 mmol/L (137-145) 01/31/17 08:11 Potassium 4.3 mmol/L (3.5-5.1) 01/31/17 08:11 Chloride 100 mmol/L (98-107) 01/31/17 08:11 Carbon Dioxide 29 mmol/L (22-30) 01/31/17 08:11 Anion Gap 11 mmol/L 01/31/17 08:11 BUN 53 mg/dL (7-17) H 01/31/17 08:11 Creatinine 1.17 mg/dL (0.52-1.04) H 01/31/17 08:11 Est GFR (MDRD) Af Amer 56 (>60 ml/min/1.73 sqM) 01/31/17 08:11 Est GFR (MDRD) Non-Af 46 (>60 ml/min/1.73 sqM) 01/31/17 08:11 Glucose 134 mg/dL (74-99) H 01/31/17 08:11 POC Glucose (mg/dL) 116 mg/dL (75-99) H 01/31/17 20:42 POC Glu Planogrammer ID Britany Guardado 01/31/17 20:[address] Glu mg/dL 169 mg/dL 01/26/17 02:28 Hemoglobin A1c 7.5 % (4.2-6.1) H 01/26/17 02:28 Lactic Ac Sepsis Rflx Y 01/26/17 03:13 Plasma Lactic Acid Kvng 1.8 mmol/L (0.7-2.0) 01/26/17 06:49 Calcium 9.5 mg/dL (8.4-10.2) 01/31/17 08:11 Total Bilirubin 0.4 mg/dL (0.2-1.3) 01/26/17 02:28 AST 36 U/L (14-36) 01/26/17 02:28 ALT 59 U/L (9-52) H 01/26/17 02:28 Alkaline Phosphatase 194 U/L (38-126) H 01/26/17 02:28 Total Protein 7.3 g/dL (6.3-8.2) 01/26/17 02:28 Albumin 4.1 g/dL (3.5-5.0) 01/26/17 02:28 Lipase 174 U/L (23-300) 01/26/17 02:28 Urine Color Light Yellow 01/26/17 00:01 Urine Appearance Turbid (Clear) H 01/26/17 00:01 Urine pH 5.5 (5.0-8.0) 01/26/17 00:01 Ur Specific [place] 1.011 (1.001-1.035) 01/26/17 00:01 Urine Protein 1+ (Negative) H 01/26/17 00:01 Urine Glucose (UA) Negative (Negative) 01/26/17 00:01 Urine Ketones Negative (Negative) 01/26/17 00:01 Urine Blood Small (Negative) H 01/26/17 00:01 Urine Nitrite Positive (Negative) H 01/26/17 00:01 Urine Bilirubin Negative (Negative) 01/26/17 00:01 Urine Urobilinogen <2.0 mg/dL (<2.0) 01/26/17 00:01 Ur Leukocyte Esterase Large (Negative) H 01/26/17 00:01 Urine RBC 11 /hpf (0-5) H 01/26/17 00:01 Urine WBC >182 /hpf (0-5) H 01/26/17 00:01 Urine WBC Clumps Many /hpf (None) H 01/26/17 00:01 Urine Bacteria Rare /hpf (None) H 01/26/17 00:01 Urine Mucus Rare /hpf (None) H 01/26/17 00:01 Influenza Type A RNA Not Detected (Not Detectd) 01/26/17 03:34 Influenza Type B (PCR) Not Detected (Not Detectd) 01/26/17 03:34 Microbiology 01/29/17 13:09 Blood Blood Culture - Preliminary No Growth after 48 hours 01/29/17 12:16 Blood Blood Culture - Preliminary No Growth after 48 hours 01/26/17 00:01 Urine,Catheterized Urine Culture - Final Escherichia coli Enterobacter aerogenes 01/26/17 02:28 Blood Blood Culture Gram Stain - Final 01/26/17 02:28 Blood Blood Culture - Final Escherichia coli 01/26/17 02:28 Blood Blood Culture - Final Assessment and Plan (1) UTI (urinary tract infection) Narrative/Plan: 66-year-old male presents from home feeling poorly for the last few days. Posterior marked change in that her urine became milky white in color. Blood and urine cultures are in progress. Admission chest x-ray was also somewhat abnormal with the possibility of a right lower lobe atelectasis versus pneumonia. With this in her prior pathogens intravenous antibiotic therapy was Zosyn was started as well as levofloxacin until further culture data was available. With hydration and supportive care she's feeling somewhat better. We'll continue this for now. The leukocytosis is due to her current sepsis. But is improving. And is being monitored. She is feeling better. However there was positive cultures. Follow blood culture requested. Antimicrobial therapies descalated to levofloxacin for the isolated Escherichia coli in the blood and Enterobacter aerogenes also in the urine. Plan total of 14 days due to his complex sepsis and bacteremia We'll continue ongoing supportive care she seems to be mostly comfortable at this point in time. Continue her BiPAP as before. Current Visit: Yes Status: Acute Code(s): N39.0 - URINARY TRACT INFECTION, SITE NOT SPECIFIED SNOMED Code(s): 24794423 (2) Leukocytosis Current Visit: Yes Status: Acute Code(s): D72.829 - ELEVATED WHITE BLOOD CELL COUNT, UNSPECIFIED SNOMED Code(s): 704114883 (3) Sepsis Current Visit: Yes Status: Acute Code(s): A41.9 - SEPSIS, UNSPECIFIED ORGANISM SNOMED Code(s): 31956184
[2017-02-01 02:34] LABS: Glucose,Whole Blood 164 mg/dL (75-99)
[2017-02-01 07:34] LABS: Glucose,Whole Blood 155 mg/dL (75-99)
[2017-02-01] MEDS: LORATADINE 10 MG TAB PO SCH (07:55)
[2017-02-01] MEDS: predniSONE 10 MG TAB PO SCH (07:55)
[2017-02-01] MEDS: LACTULOSE 20 GM/30 ML CUP PO SCH ×4 (07:55→21:07)
[2017-02-01] MEDS: SENNOSIDES-DOCUSATE SODIUM 1 EACH TAB PO SCH ×2 (07:57→21:04)
[2017-02-01] MEDS: GABAPENTIN 300 MG CAP PO SCH ×2 (07:58→21:03)
[2017-02-01] MEDS: MONTELUKAST 10 MG TAB PO SCH (07:58)
[2017-02-01] MEDS: BACLOFEN 10 MG TAB PO SCH ×2 (07:58→21:03)
[2017-02-01] MEDS: CITALOPRAM HYDROBROMIDE 10 MG TAB PO SCH (07:58)
[2017-02-01] MEDS: metFORMIN 500 MG TAB PO SCH ×2 (07:58→18:05)
[2017-02-01] MEDS: INSULIN LISPRO (humaLOG) 300 UNIT/3 ML VIAL SQ SCH ×8 (07:59→18:08)
[2017-02-01] MEDS: HEPARIN SODIUM,PORCINE 5,000 UNIT/ML 1 ML VIAL SQ SCH ×2 (07:59→21:03)
[2017-02-01] MEDS: IPRATROPIUM-ALBUTEROL 3 ML NEB INHALATION SCH ×2 (08:14→19:15)
[2017-02-01] MEDS: SYMBICORT 160-4.5 MCG INHALER INHALATION SCH ×2 (08:14→19:15)
[2017-02-01 12:02] LABS: Basophils % (A) 0 %; CH 30.2; CHCM 31.1; Eosinophils # (A) 0.2 k/uL (0-0.7); Eosinophils % (A) 1 %; HDW 2.54; HGB 11.2 gm/dL (11.4-16.0); Hypochromasia Slight; Luc # (Auto) 0.12; Luc % (Auto) 1; Lymphocytes # (A) 1.3 k/uL (1.0-4.8); Lymphocytes % (A) 9 %; MCH 30.3 pg (25.0-35.0); MCHC 31.2 g/dL (31.0-37.0); MCV 97.2 fL (80.0-100.0); Mean Platelet Volume 6.9; Monocytes # (A) 0.4 k/uL (0-1.0); Monocytes % (A) 3 %; Neutrophils # (A) 12.7 k/uL (1.3-7.7); Neutrophils % (A) 86 %; RDW 15.3 % (11.5-15.5); WBC 14.8 k/uL (3.8-10.6); WBC (Perox) 14.85
[2017-02-01 12:21] LABS: Calcium 9.5 mg/dL (8.4-10.2); Potassium 5.1 mmol/L (3.5-5.1)
[2017-02-01 13:13] LABS: Glucose,Whole Blood 187 mg/dL (75-99)
[2017-02-01] MEDS: FERROUS SULFATE 325 MG TAB PO SCH (13:47)
[2017-02-01] MEDS: ASCORBIC ACID 500 MG TAB PO SCH (13:47)
[2017-02-01 14:52] VITALS: BMI 57.6
--- NOTE | 2017-02-01 16:32 | P.DS ---
Providers Date of admission: 01/26/17 05:02 Expected date of discharge: 02/01/17 Attending physician: Tatiana Gee Consults: 01/26/17 10:30 Consult Physician Routine Consulting Provider: William Cannon Consult Reason/Comments: Sepsis,uti Do you want consulting provider notified?: Yes Primary care physician: Moody Hospital Course: Final Diagnoses: 1. Acute UTI with sepsis with E. coli,Enterobacter aerogenesis. secondary to indwelling catheter, present on admission and E. coli bacteremia. 2. [ Asthma,COPD, acute exacerbation]. Improved 3. [ Diabetes mellitus type 2,controlled 4. [ Hypertension]. 5. [ HyperLipidemia]. 6. 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 7. [ History of ESBL E. coli]. Hospital course:This is 66-year-old female admitted with acute UTI with sepsis, E. coli present in both blood and urine cultures, acute COPD exacerbation and multiple other medical issues. Evaluated by infectious disease. Initial blood culture reported E. coli, urine culture reported E. coli, Enterobacter aerogenesis. Repeat blood cultures negative at 72 hours. Maintained on IV antibiotics, steroids, nebulized bronchodilators. Significant clinical improvement. Patient has been cleared for discharge by infectious disease. Patient is being discharged home in a stable condition with guarded prognosis. Microbiology 01/29/17 13:09 Blood Blood Culture - Preliminary No Growth after 72 hours 01/29/17 12:16 Blood Blood Culture - Preliminary No Growth after 72 hours 01/26/17 00:01 Urine,Catheterized Urine Culture - Final Escherichia coli Enterobacter aerogenes 01/26/17 02:28 Blood Blood Culture Gram Stain - Final 01/26/17 02:28 Blood Blood Culture - Final Escherichia coli 01/26/17 02:28 Blood Blood Culture - Final The impression and plan of care has been dictated as directed. : I performed a history and examination of this patient, discussed the same with the dictator. I agree with the dictator's note ,documented as a scribe. Any additional findings or plans will be noted. Patient Condition at Discharge: Stable Plan - Discharge Summary New Discharge Prescriptions: New Lactulose [Cephulac] 20 gm PO TID #600 ml Levofloxacin [Levaquin] 750 mg PO Q48H #10 tab metFORMIN HCL [Glucophage] 1,000 mg PO BID-W/MEALS tab Sennosides-Docusate Sodium [Senokot-S] 2 each PO BID tab Continue Budesonide-Formot 160-4.5 Mcg [Symbicort 160-4.5 Mcg Inhaler] 2 puff INHALATION RT-BID Furosemide [Lasix] 40 mg PO BID Cetirizine HCl [Zyrtec] 10 mg PO QAM Baclofen [Lioresal] 10 mg PO BID Spironolactone [Aldactone] 25 mg PO BID Montelukast Sodium [Singulair] 10 mg PO QAM Aspirin 81 mg PO HS Ascorbic Acid [Vitamin C] 1,000 mg PO DAILY@1200 Ergocalciferol [Vitamin D2 (DRISDOL)] 50,000 unit PO FR Ferrous Sulfate, Dried [Slow Release Iron] 159 mg PO DAILY@1200 Gabapentin [Neurontin] 300 mg PO BID cap Albuterol Inhaler [Ventolin Hfa Inhaler] 2 puff INHALATION RT-QID PRN PRN Reason: Shortness Of Breath Citalopram Hydrobromide [CeleXA] 10 mg PO QAM Metoclopramide HCl [Reglan] 5 mg PO DAILY PRN PRN Reason: Nausea Ipratropium-Albuterol Nebulize [Duoneb 0.5 mg-3 mg/3 ml Soln] 3 ml INHALATION RT-BID Ammonium Lactate Lotion [Lac-Hydrin 12% Lotion] 1 applic TOPICAL BID PRN PRN Reason: Dry Skin Changed Insulin Glargine,Hum.rec.anlog [Lantus Solostar] 15 unit SQ HS #0 Discontinued Celecoxib [CeleBREX] 200 mg PO QAM metFORMIN HCL [Glucophage] 2,000 mg PO DAILY@1999 Discharge Medication List Ascorbic Acid [Vitamin C] 1,000 mg PO DAILY@1200 10/22/13 [History] Aspirin 81 mg PO HS 10/22/13 [History] Baclofen [Lioresal] 10 mg PO BID 10/22/13 [History] Budesonide-Formot 160-4.5 Mcg [Symbicort 160-4.5 Mcg Inhaler] 2 puff INHALATION RT-BID 10/22/13 [History] Cetirizine HCl [Zyrtec] 10 mg PO QAM 10/22/13 [History] Furosemide [Lasix] 40 mg PO BID 10/22/13 [History] Montelukast Sodium [Singulair] 10 mg PO QAM 10/22/13 [History] Spironolactone [Aldactone] 25 mg PO BID 10/22/13 [History] Ergocalciferol [Vitamin D2 (DRISDOL)] 50,000 unit PO FR 10/18/15 [History] Ferrous Sulfate, Dried [Slow Release Iron] 159 mg PO DAILY@1200 10/18/15 [ History] Gabapentin [Neurontin] 300 mg PO BID cap 10/27/15 [Rx] Albuterol Inhaler [Ventolin Hfa Inhaler] 2 puff INHALATION RT-QID PRN 06/12/16 [ History] Citalopram Hydrobromide [CeleXA] 10 mg PO QAM 06/12/16 [History] Metoclopramide HCl [Reglan] 5 mg PO DAILY PRN 06/14/16 [History] Ammonium Lactate Lotion [Lac-Hydrin 12% Lotion] 1 applic TOPICAL BID PRN [History] Ipratropium-Albuterol Nebulize [Duoneb 0.5 mg-3 mg/3 ml Soln] 3 ml INHALATION RT -BID 01/26/17 [History] Insulin Glargine,Hum.rec.anlog [Lantus Solostar] 15 unit SQ HS #0 02/01/17 [Rx] Lactulose [Cephulac] 20 gm PO TID #600 ml 02/01/17 [Rx] Levofloxacin [Levaquin] 750 mg PO Q48H #10 tab 02/01/17 [Rx] Sennosides-Docusate Sodium [Senokot-S] 2 each PO BID tab 02/01/17 [Rx] metFORMIN HCL [Glucophage] 1,000 mg PO BID-W/MEALS tab 02/01/17 [Rx] Follow up Appointment(s)/Referral(s): Raymond Andrade MD [Primary Care Provider] - 3 Days Ambulatory/Diagnostic Orders: Complete Blood Count w/diff [LAB.AMB] Time Frame: 3 Days, Location: Determined By Patient Patient Instructions/Handouts: Type 2 Diabetes in Adults (DC) Activity/Diet/Wound Care/Special Instructions: [facility] (#[phone])
[2017-02-01] MEDS ORDERED: MINERAL OIL 133 ML ENEMA RECTAL STA (16:44)
--- NOTE | 2017-02-01 16:44 | P.PN ---
Subjective Progress Note Date: 02/01/17 Progress note being dictated for Dr. Gee Interval history: This is 66-year-old female admitted with acute UTI with sepsis , E. coli present in both blood and urine cultures, acute COPD exacerbation and multiple other medical issues. Breathing significantly improved. IV steroids weaned to oral. Blood sugars controlled. Maintained on IV antibiotics as per infectious disease. Creatinine 1.4. Afebrile. 01/30/2017 complains of constipation, passing flatus. Wearing on BiPAP at night. Breathing continues to improve. IV antibiotics as per infectious disease. Repeat blood cultures in progress. Afebrile, WBC improving. 01/31/2017 passing small amounts of stool. Breathing much improved. Awaiting finalization of repeat blood cultures. Maintained on IV antibiotics as per infectious disease. Afebrile. Creatinine significantly improved. Blood sugars ranging from 130s to 250s. 02/01/2017 positive bowel movement. significant improvement in breathing .Lantus adjusted last night, blood sugars better controlled. Discharge antibiotics received from infectious disease. Staff arranging for correct size Stallings catheter/baloon to be placed. Post void residual marginal. Afebrile, WBC 14.8. Denies chest pain, palpitations or increasing shortness of breath. Objective - Vital Signs Vital signs: Vital Signs Temp 97.4 F L 02/01/17 15:00 Pulse 87 02/01/17 15:00 Resp 20 02/01/17 15:00 BP 151/56 02/01/17 15:00 Pulse Ox 96 02/01/17 15:00 Intake & Output 01/31/17 02/01/17 02/01/17 18:59 06:59 18:59 Intake Total 600 Output Total 1000 1100 Balance -1000 -500 Weight 143 kg Intake: Oral 600 Output: Urine 1000 1100 Other: Voiding Method Indwelling Catheter Indwelling Catheter # Voids 4 - Exam PHYSICAL EXAM: VITAL SIGNS: As above GENERAL: Sitting up in bed, no acute distress HEENT: Conjunctivae normal. eyes normal. Oral mucosa moist NECK: No JVD. No thyroid enlargement. No LNs CARDIOVASCULAR: S1, S2 muffled. No murmur RESPIRATION: Breath sounds diminished in the bases. No rhonchi or crackles. ABDOMEN: Soft, nontender . No guarding. no masses palpable.Bowel sounds heard. LEGS: No edema. no swelling PSYCHIATRY: Alert and oriented -3, mood and affect normal. NERVOUS SYSTEM: Paraplegic ;No focal deficits. Microbiology 01/29/17 13:09 Blood Blood Culture - Preliminary No Growth after 48 hours 01/29/17 12:16 Blood Blood Culture - Preliminary No Growth after 48 hours 01/26/17 00:01 Urine,Catheterized Urine Culture - Final Escherichia coli Enterobacter aerogenes 01/26/17 02:28 Blood Blood Culture Gram Stain - Final 01/26/17 02:28 Blood Blood Culture - Final Escherichia coli 01/26/17 02:28 Blood Blood Culture - Final - Labs CBC & Chem 7: 02/01/17 11:49 02/01/17 11:49 Labs: Abnormal Lab Results - Last 24 Hours (Table) 01/31/17 01/31/17 02/01/17 Range/Units 17:06 20:42 02:29 WBC (3.8-10.6) k/uL RBC (3.80-5.40) m/uL Hgb (11.4-16.0) gm/dL Neutrophils # (1.3-7.7) k/uL BUN (7-17) mg/dL Creatinine (0.52-1.04) mg/dL Glucose (74-99) mg/dL POC Glucose (mg/dL) 244 H 116 H 164 H (75-99) mg/dL 02/01/17 02/01/17 02/01/17 Range/Units 07:00 11:49 11:49 WBC 14.8 H (3.8-10.6) k/uL RBC 3.70 L (3.80-5.40) m/uL Hgb 11.2 L (11.4-16.0) gm/dL Neutrophils # 12.7 H (1.3-7.7) k/uL BUN 50 H (7-17) mg/dL Creatinine 1.16 H (0.52-1.04) mg/dL Glucose 138 H (74-99) mg/dL POC Glucose (mg/dL) 155 H (75-99) mg/dL 02/01/17 Range/Units 12:41 WBC (3.8-10.6) k/uL RBC (3.80-5.40) m/uL Hgb (11.4-16.0) gm/dL Neutrophils # (1.3-7.7) k/uL BUN (7-17) mg/dL Creatinine (0.52-1.04) mg/dL Glucose (74-99) mg/dL POC Glucose (mg/dL) 187 H (75-99) mg/dL Microbiology - Last 24 Hours (Table) 01/29/17 13:09 Blood Culture - Preliminary Blood No Growth after 72 hours 01/29/17 12:16 Blood Culture - Preliminary Blood No Growth after 72 hours Assessment and Plan Plan: 1. Acute UTI with sepsis with E. coli, Enterobacter aerogenesis secondary to indwelling catheter, present on admission and E. coli bacteremia. Repeat blood cultures no growth at 72 hours. 2. [ Asthma,COPD, acute exacerbation]. 3. [ Diabetes mellitus type 2,controlled 4. [ Hypertension]. 5. [ HyperLipidemia]. 6. 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 7. [ History of ESBL E. coli]. Plan: Continue on current medication regime ,monitoring and symptomatic treatment. Lantus further adjusted , close monitoring of Accu-Cheks. Antibiotics as per infectious disease. Discharge planning in progress pending arrangement of patient's private duty homecare workers confirmed. The impression and plan of care has been dictated as directed. : I performed a history and examination of this patient, discussed the same with the dictator. I agree with the dictator's note ,documented as a scribe. Any additional findings or plans will be noted.
[2017-02-01] MEDS ORDERED: BISACODYL 10 MG SUPP RECTAL STA (16:45)
[2017-02-01] MEDS: HYDROcodone/APAP 5-325MG 1 EACH TAB PO PRN (16:47)
[2017-02-01] MEDS: FUROSEMIDE 40 MG TAB PO SCH ×2 (17:01→21:03)
[2017-02-01] MEDS: SPIRONOLACTONE 25 MG TAB PO SCH ×2 (17:02→21:05)
[2017-02-01 17:21] LABS: Glucose,Whole Blood 144 mg/dL (75-99)
[2017-02-01 20:58] LABS: Glucose,Whole Blood 135 mg/dL (75-99)
[2017-02-01] MEDS ORDERED: INSULIN GLARGINE 100 UNIT/ML 10 ML VIAL SQ SCH (21:00)
[2017-02-01] MEDS: BISACODYL 10 MG SUPP RECTAL SCH (21:03)
[2017-02-01] MEDS: ASPIRIN 81 MG PO SCH (21:03)
[2017-02-01] MEDS: TEMAZEPAM 15 MG CAP PO SCH (21:07)
--- NOTE | 2017-02-01 21:12 | P.PN ---
Subjective Progress Note Date: 02/01/17 Principal diagnosis: Malaise and fatigue 66-year-old female who suffers from superobesity and paraplegia presents to the emergency center relating that her urine has turned milky cloudy white. She was not feeling well at least for the last couple of days. She was having generalized malaise and low-grade fever without chills or rigors. She's had some minimal cough. She suddenly was not feeling well and constantly was brought to Hospital by EMS. She this time relates that she is feeling somewhat better. She's been able to rest in the bed although it's a bit firm she's doing well with her BiPAP in place. She is denying further fever , chills or rigors. Is still very weak and has not been able to eat her meals. However is denying nausea or emesis. Still has a poor appetite. However fevers chills and rigors are resolved. She definitely feels better today She is aware that her urine has now become clear. Lower extremity edema is less uncomfortable.feels better overall. Is having some irritation to her right buttocks which is not unusual. Objective - Vital Signs Vital signs: Vital Signs Temp 97.4 F L 02/01/17 15:00 Pulse 90 02/01/17 19:28 Resp 20 02/01/17 15:00 BP 151/56 02/01/17 15:00 Pulse Ox 96 02/01/17 15:00 Intake & Output 02/01/17 02/01/17 02/02/17 06:59 18:59 06:59 Intake Total 600 Output Total 1100 Balance -500 Weight 143 kg Intake: Oral 600 Output: Urine 1100 Other: Voiding Method Indwelling Catheter # Voids 4 - Exam 66 year old woman who suffers from superobesity who had a fever of 101.8 at the time of her admission she has now defervesced. She was feeling poorly at the time of admission with fever in the milky white urine HEENT: Anicteric conjunctiva are pink and moist nasal mucosa grossly intact without significant lesions, there is no thrush. Neck: The neck is supple without significant lymphadenopathy or thyromegaly. Lungs: Good bilateral air entry without significant crackles or wheezing. There is no significant bronchial sounds. There is no egophony or dullness. Heart: Regular rate and rhythm with an audible S1-S2, no S3 no S4. There is no significant murmur click or rub, PMI was nondisplaced. Abdomen: Obese, patient complains of distention. Underlying organomegaly is not palpable. She has some generalized discomfort in the lower quadrants. No palpable mass is noted. Extremities: The upper extremities have excellent pulses they are symmetric, no significant petechiae or telangiectasia. No splinter hemorrhages were noted. F some trace edema. There is minimal erythema to the right lower extremity pretibial surface without evidence of any blistering or ulceration. She complains of significant pain to the right heel where she has seen a carpet installer helper and a heel spur was noted. The peripheral pulses were 2+ and symmetric. Neuro: Awake alert oriented to person place and time. There are no acute new gross focal sensory motor deficits. But does have inability to ambulate due to the lower extremity weakness. - Labs CBC & Chem 7: 02/01/17 11:49 02/01/17 11:49 Labs: Abnormal Lab Results - Last 24 Hours (Table) 02/01/17 02/01/17 02/01/17 Range/Units 02:29 07:00 11:49 WBC 14.8 H (3.8-10.6) k/uL RBC 3.70 L (3.80-5.40) m/uL Hgb 11.2 L (11.4-16.0) gm/dL Neutrophils # 12.7 H (1.3-7.7) k/uL BUN (7-17) mg/dL Creatinine (0.52-1.04) mg/dL Glucose (74-99) mg/dL POC Glucose (mg/dL) 164 H 155 H (75-99) mg/dL 02/01/17 02/01/17 02/01/17 Range/Units 11:49 12:41 17:19 WBC (3.8-10.6) k/uL RBC (3.80-5.40) m/uL Hgb (11.4-16.0) gm/dL Neutrophils # (1.3-7.7) k/uL BUN 50 H (7-17) mg/dL Creatinine 1.16 H (0.52-1.04) mg/dL Glucose 138 H (74-99) mg/dL POC Glucose (mg/dL) 187 H 144 H (75-99) mg/dL 02/01/17 Range/Units 20:30 WBC (3.8-10.6) k/uL RBC (3.80-5.40) m/uL Hgb (11.4-16.0) gm/dL Neutrophils # (1.3-7.7) k/uL BUN (7-17) mg/dL Creatinine (0.52-1.04) mg/dL Glucose (74-99) mg/dL POC Glucose (mg/dL) 135 H (75-99) mg/dL Microbiology - Last 24 Hours (Table) 01/29/17 13:09 Blood Culture - Preliminary Blood No Growth after 72 hours 01/29/17 12:16 Blood Culture - Preliminary Blood No Growth after 72 hours Laboratory Results WBC 14.8 k/uL (3.8-10.6) H 02/01/17 11:49 RBC 3.70 m/uL (3.80-5.40) L 02/01/17 11:49 Hgb 11.2 gm/dL (11.4-16.0) L 02/01/17 11:49 Hct 36.0 % (34.0-46.0) 02/01/17 11:49 MCV 97.2 fL (80.0-100.0) 02/01/17 11:49 MCH 30.3 pg (25.0-35.0) 02/01/17 11:49 MCHC 31.2 g/dL (31.0-37.0) 02/01/17 11:49 RDW 15.3 % (11.5-15.5) 02/01/17 11:49 Plt Count 340 k/uL (150-450) 02/01/17 11:49 Neutrophils % 86 % 02/01/17 11:49 Lymphocytes % 9 % 02/01/17 11:49 Monocytes % 3 % 02/01/17 11:49 Eosinophils % 1 % 02/01/17 11:49 Basophils % 0 % 02/01/17 11:49 Neutrophils # 12.7 k/uL (1.3-7.7) H 02/01/17 11:49 Lymphocytes # 1.3 k/uL (1.0-4.8) 02/01/17 11:49 Monocytes # 0.4 k/uL (0-1.0) 02/01/17 11:49 Eosinophils # 0.2 k/uL (0-0.7) 02/01/17 11:49 Basophils # 0.0 k/uL (0-0.2) 02/01/17 11:49 Hypochromasia Slight 02/01/17 11:49 Anisocytosis Slight 01/31/17 08:11 Macrocytosis Slight 01/31/17 08:11 PT 9.8 sec (9.0-12.0) 01/26/17 02:28 INR 1.0 (<1.2) 01/26/17 02:28 APTT 23.7 sec (22.0-30.0) 01/26/17 02:28 Sodium 140 mmol/L (137-145) 02/01/17 11:49 Potassium 5.1 mmol/L (3.5-5.1) 02/01/17 11:49 Chloride 101 mmol/L (98-107) 02/01/17 11:49 Carbon Dioxide 26 mmol/L (22-30) 02/01/17 11:49 Anion Gap 13 mmol/L 02/01/17 11:49 BUN 50 mg/dL (7-17) H 02/01/17 11:49 Creatinine 1.16 mg/dL (0.52-1.04) H 02/01/17 11:49 Est GFR (MDRD) Af Amer 57 (>60 ml/min/1.73 sqM) 02/01/17 11:49 Est GFR (MDRD) Non-Af 47 (>60 ml/min/1.73 sqM) 02/01/17 11:49 Glucose 138 mg/dL (74-99) H 02/01/17 11:49 POC Glucose (mg/dL) 135 mg/dL (75-99) H 02/01/17 20:30 POC Glu Financial Secretary ID Britany Guardado 02/01/17 20:[address] Glu mg/dL 169 mg/dL 01/26/17 02:28 Hemoglobin A1c 7.5 % (4.2-6.1) H 01/26/17 02:28 Lactic Ac Sepsis Rflx Y 01/26/17 03:13 Plasma Lactic Acid Kvng 1.8 mmol/L (0.7-2.0) 01/26/17 06:49 Calcium 9.5 mg/dL (8.4-10.2) 02/01/17 11:49 Total Bilirubin 0.4 mg/dL (0.2-1.3) 01/26/17 02:28 AST 36 U/L (14-36) 01/26/17 02:28 ALT 59 U/L (9-52) H 01/26/17 02:28 Alkaline Phosphatase 194 U/L (38-126) H 01/26/17 02:28 Total Protein 7.3 g/dL (6.3-8.2) 01/26/17 02:28 Albumin 4.1 g/dL (3.5-5.0) 01/26/17 02:28 Lipase 174 U/L (23-300) 01/26/17 02:28 Urine Color Light Yellow 01/26/17 00:01 Urine Appearance Turbid (Clear) H 01/26/17 00:01 Urine pH 5.5 (5.0-8.0) 01/26/17 00:01 Ur Specific [place] 1.011 (1.001-1.035) 01/26/17 00:01 Urine Protein 1+ (Negative) H 01/26/17 00:01 Urine Glucose (UA) Negative (Negative) 01/26/17 00:01 Urine Ketones Negative (Negative) 01/26/17 00:01 Urine Blood Small (Negative) H 01/26/17 00:01 Urine Nitrite Positive (Negative) H 01/26/17 00:01 Urine Bilirubin Negative (Negative) 01/26/17 00:01 Urine Urobilinogen <2.0 mg/dL (<2.0) 01/26/17 00:01 Ur Leukocyte Esterase Large (Negative) H 01/26/17 00:01 Urine RBC 11 /hpf (0-5) H 01/26/17 00:01 Urine WBC >182 /hpf (0-5) H 01/26/17 00:01 Urine WBC Clumps Many /hpf (None) H 01/26/17 00:01 Urine Bacteria Rare /hpf (None) H 01/26/17 00:01 Urine Mucus Rare /hpf (None) H 01/26/17 00:01 Influenza Type A RNA Not Detected (Not Detectd) 01/26/17 03:34 Influenza Type B (PCR) Not Detected (Not Detectd) 01/26/17 03:34 Microbiology 01/29/17 13:09 Blood Blood Culture - Preliminary No Growth after 72 hours 01/29/17 12:16 Blood Blood Culture - Preliminary No Growth after 72 hours 01/26/17 00:01 Urine,Catheterized Urine Culture - Final Escherichia coli Enterobacter aerogenes 01/26/17 02:28 Blood Blood Culture Gram Stain - Final 01/26/17 02:28 Blood Blood Culture - Final Escherichia coli 01/26/17 02:28 Blood Blood Culture - Final Assessment and Plan (1) UTI (urinary tract infection) Narrative/Plan: 66-year-old male presents from home feeling poorly for the last few days. Posterior marked change in that her urine became milky white in color. Blood and urine cultures are in progress. Admission chest x-ray was also somewhat abnormal with the possibility of a right lower lobe atelectasis versus pneumonia. With this in her prior pathogens intravenous antibiotic therapy was Zosyn was started as well as levofloxacin until further culture data was available. With hydration and supportive care she's feeling somewhat better. We'll continue this for now. The leukocytosis is due to her current sepsis. But is improving. And is being monitored. She is feeling better. However there was positive cultures. Follow blood culture requested. Antimicrobial therapies descalated to levofloxacin for the isolated Escherichia coli in the blood and Enterobacter aerogenes also in the urine. Plan total of 14 days due to his complex sepsis and bacteremia We'll continue ongoing supportive care she seems to be mostly comfortable at this point in time. Continue her BiPAP as before. can utilize DuoDERM to the right buttocks area of irritation change it every 3 days and when necessary Current Visit: Yes Status: Acute Code(s): N39.0 - URINARY TRACT INFECTION, SITE NOT SPECIFIED SNOMED Code(s): 72333370 (2) Leukocytosis Current Visit: Yes Status: Acute Code(s): D72.829 - ELEVATED WHITE BLOOD CELL COUNT, UNSPECIFIED SNOMED Code(s): 896691208 (3) Sepsis Current Visit: Yes Status: Acute Code(s): A41.9 - SEPSIS, UNSPECIFIED ORGANISM SNOMED Code(s): 59403646
[2017-02-02 02:16] LABS: Glucose,Whole Blood 169 mg/dL (75-99)
[2017-02-02 07:04] LABS: Glucose,Whole Blood 124 mg/dL (75-99)
[2017-02-02] MEDS: predniSONE 10 MG TAB PO SCH (07:31)
[2017-02-02] MEDS: LACTULOSE 20 GM/30 ML CUP PO SCH ×2 (07:31→12:30)
[2017-02-02] MEDS: metFORMIN 500 MG TAB PO SCH (07:31)
[2017-02-02] MEDS: HEPARIN SODIUM,PORCINE 5,000 UNIT/ML 1 ML VIAL SQ SCH (07:31)
[2017-02-02] MEDS: BACLOFEN 10 MG TAB PO SCH (07:31)
[2017-02-02] MEDS: SPIRONOLACTONE 25 MG TAB PO SCH (07:31)
[2017-02-02] MEDS: LORATADINE 10 MG TAB PO SCH (07:31)
[2017-02-02] MEDS: FUROSEMIDE 40 MG TAB PO SCH (07:31)
[2017-02-02] MEDS: SENNOSIDES-DOCUSATE SODIUM 1 EACH TAB PO SCH (07:31)
[2017-02-02] MEDS: MONTELUKAST 10 MG TAB PO SCH (07:32)
[2017-02-02] MEDS: INSULIN LISPRO (humaLOG) 300 UNIT/3 ML VIAL SQ SCH ×4 (07:32→12:30)
[2017-02-02] MEDS: GABAPENTIN 300 MG CAP PO SCH (07:32)
[2017-02-02] MEDS: CITALOPRAM HYDROBROMIDE 10 MG TAB PO SCH (07:32)
[2017-02-02 07:39] VITALS: BP 133/63; RESP 19; TEMP 96.3
[2017-02-02] MEDS ORDERED: LEVOFLOXACIN 750 MG TAB PO SCH (08:00)
[2017-02-02] MEDS: SYMBICORT 160-4.5 MCG INHALER INHALATION SCH (08:26)
[2017-02-02] MEDS: IPRATROPIUM-ALBUTEROL 3 ML NEB INHALATION SCH (08:26)
[2017-02-02 08:32] VITALS: PULSE 84
[2017-02-02] MEDS: ASCORBIC ACID 500 MG TAB PO SCH (11:23)
[2017-02-02] MEDS: ERGOCALCIFEROL 50,000 UNIT CAP PO SCH (11:23)
[2017-02-02] MEDS: FERROUS SULFATE 325 MG TAB PO SCH (11:23)
[2017-02-02 12:04] LABS: Glucose,Whole Blood 202 mg/dL (75-99)
== END 2017-02-02 13:29 | disposition home health service (06) | DRG 698 ==
LOC: EC 02:14 → 4MS4W 05:02
PROVIDERS: ADMIT Hospitalist; ATTEND Hospitalist
DX: T83.511A Infection and inflammatory reaction due to indwelling urethral catheter, initial encounter (principal); A41.51 Sepsis due to Escherichia coli [E. coli]; G82.20 Paraplegia, unspecified; J44.1 Chronic obstructive pulmonary disease with (acute) exacerbation; J45.901 Unspecified asthma with (acute) exacerbation; Z68.43 Body mass index [BMI] 50.0-59.9, adult; E11.65 Type 2 diabetes mellitus with hyperglycemia; E66.01 Morbid (severe) obesity due to excess calories; N39.0 Urinary tract infection, site not specified; I10 Essential (primary) hypertension; D64.9 Anemia, unspecified; E78.5 Hyperlipidemia, unspecified; Z16.12 Extended spectrum beta lactamase (ESBL) resistance; M79.7 Fibromyalgia; K59.00 Constipation, unspecified; K21.9 Gastro-esophageal reflux disease without esophagitis; M85.80 Other specified disorders of bone density and structure, unspecified site; F32.9 Major depressive disorder, single episode, unspecified; M19.91 Primary osteoarthritis, unspecified site; Z16.24 Resistance to multiple antibiotics; M77.31 Calcaneal spur, right foot; G47.33 Obstructive sleep apnea (adult) (pediatric); Z79.82 Long term (current) use of aspirin; Z79.51 Long term (current) use of inhaled steroids; Z79.4 Long term (current) use of insulin; Z79.1 Long term (current) use of non-steroidal anti-inflammatories (NSAID); Z79.899 Other long term (current) drug therapy; Z96.653 Presence of artificial knee joint, bilateral; Z87.891 Personal history of nicotine dependence; Z98.1 Arthrodesis status; Z98.42 Cataract extraction status, left eye; Z98.41 Cataract extraction status, right eye; Z86.19 Personal history of other infectious and parasitic diseases; Z88.1 Allergy status to other antibiotic agents; Z88.2 Allergy status to sulfonamides; Z88.8 Allergy status to other drugs, medicaments and biological substances; Y92.009 Unspecified place in unspecified non-institutional (private) residence as the place of occurrence of the external cause; Y84.6 Urinary catheterization as the cause of abnormal reaction of the patient, or of later complication, without mention of misadventure at the time of the procedure
CPT/HCPCS: 36415; 71020; 80048; 80053; 81001; 83036; 83605; 83690; 85025; 85610; 85730; 87040; 87077; 87086; 87186; 87502; 93005; 94640; 94760; 96365; 96366; 96368; 99285

== ENCOUNTER 2017-05-16 10:37 | Emergency (ER) | payer MEDICARE, OTHER ==
[2017-05-16] MEDS ORDERED: SODIUM CHLORIDE 0.9% 1,000 ML IV STA (11:04)
--- NOTE | 2017-05-16 11:13 | ED ---
General Adult HPI - General Chief complaint: Nausea/Vomiting/Diarrhea Stated complaint: Vomiting Time Seen by Provider: 05/16/17 10:50 Source: patient, EMS, RN notes reviewed Mode of arrival: EMS Limitations: physical limitation - History of Present Illness Initial comments: Patient 66-year-old female who presents emergency room today by EMS, with chief complaint of symptoms of nausea vomiting diarrhea that started yesterday. Does admit to abdominal pain locally to the middle of the abdomen. Patient states that she has a history of paraplegia due to a back surgery that was 8 years ago. Patient states she was given nausea medication and IV fluids by EMS and is feeling better at this time. Patient currently denies any pain. States nausea much improved. States still feels a little shaky. Patient denies any recent fever, chills, shortness of breath, chest pain, back pain, numbness or tingling, dysuria or hematuria, constipation or diarrhea, headaches or visual changes, or any other complaints. - Related Data Home Medications Medication Instructions Recorded Confirmed Ascorbic Acid [Vitamin C] 1,000 mg PO DAILY@1200 10/22/13 05/16/17 Aspirin 81 mg PO HS 10/22/13 05/16/17 Baclofen [Lioresal] 10 mg PO BID 10/22/13 05/16/17 Budesonide-Formot 160-4.5 Mcg 2 puff INHALATION RT-BID 10/22/13 05/16/17 [Symbicort 160-4.5 Mcg Inhaler] Cetirizine HCl [Zyrtec] 10 mg PO DAILY 10/22/13 05/16/17 Furosemide [Lasix] 40 mg PO BID 10/22/13 05/16/17 Montelukast Sodium [Singulair] 10 mg PO DAILY 10/22/13 05/16/17 Spironolactone [Aldactone] 25 mg PO BID 10/22/13 05/16/17 Ergocalciferol [Vitamin D2 50,000 unit PO FR 10/18/15 05/16/17 (DRISDOL)] Albuterol Inhaler [Ventolin Hfa 2 puff INHALATION RT-QID PRN 06/12/16 05/16/17 Inhaler] Citalopram Hydrobromide [CeleXA] 10 mg PO DAILY 06/12/16 05/16/17 Ammonium Lactate Lotion 1 applic TOPICAL BID PRN 01/26/17 05/16/17 [Lac-Hydrin 12% Lotion] Ipratropium-Albuterol Nebulize 3 ml INHALATION RT-BID 01/26/17 05/16/17 [Duoneb 0.5 mg-3 mg/3 ml Soln] Aztreonam [Azactam] 2 gm IVPB TID@0600,1400,2200 05/16/17 05/16/17 Celecoxib [CeleBREX] 200 mg PO DAILY 05/16/17 05/16/17 Cyanocobalamin (Vitamin B-12) 1,000 mcg PO DAILY@1200 05/16/17 05/16/17 [Vitamin B-12] INSULIN LISPRO (humaLOG) [humaLOG] See Protocol SQ AC-TID 05/16/17 05/16/17 Omeprazole [PriLOSEC] 20 mg PO HS 05/16/17 05/16/17 Slow Release Iron 145mg 145 mg PO DAILY@1200 05/16/17 05/16/17 Vitamin E (Dl,Tocopheryl Acet) 400 unit PO DAILY@1200 05/16/17 05/16/17 [Vitamin E] Previous Rx's Medication Instructions Recorded Gabapentin [Neurontin] 300 mg PO BID cap 10/27/15 Insulin Glargine,Hum.rec.anlog 15 unit SQ HS #0 02/01/17 [Lantus Solostar] metFORMIN HCL [Glucophage] 1,000 mg PO BID-W/MEALS tab 02/01/17 Ondansetron Odt [Zofran ODT] 4 mg PO Q8HR PRN #20 tab 05/16/17 Allergies Allergy/AdvReac Type Severity Reaction Status Date / Time acyclovir Allergy Rash/Hives Verified 05/16/17 11:12 cephalexin [Cephalexin] Allergy Anaphylaxis Verified 05/16/17 11:12 cephalexin monohydrate Allergy Anaphylaxis Verified 05/16/17 11:12 [From Keflex] Cephalosporins Allergy Unknown Verified 05/16/17 11:12 erythromycin base Allergy Unknown Verified 05/16/17 11:12 famciclovir Allergy Rash/Hives Verified 05/16/17 11:12 meropenem [From Merrem] Allergy Anaphylaxis Verified 05/16/17 11:12 nitrofurantoin Allergy Unknown Verified 05/16/17 11:12 [From Macrobid] nitrofurantoin Allergy Unknown Verified 05/16/17 11:12 macrocrystalline [From Macrobid] sulfamethoxazole Allergy Unknown Verified 05/16/17 11:12 [From Bactrim] trimethoprim [From Bactrim] Allergy Unknown Verified 05/16/17 11:12 Review of Systems ROS Statement: Those systems with pertinent positive or pertinent negative responses have been documented in the HPI. ROS Other: All systems not noted in ROS Statement are negative. Past Medical History Past Medical History: Asthma, COPD, Diabetes Mellitus, Fibromyalgia, GERD/Reflux , Hyperlipidemia, Hypertension, Osteoarthritis (OA), Pneumonia, Sleep Apnea/CPAP /BIPAP Additional Past Medical History / Comment(s): IDC, FREQ UTI. anemia; osteopenia ; parapalegic "R/T SPINAL SURG 2006, AND AMBULANCE INJURY LATER", obstructive sleep apnea, chronic Stallings catheter, shingles History of Any Multi-Drug Resistant Organisms: ESBL Date of last positivie culture/infection: 10/18/15 MDRO Source:: Urine-E.coli ESBL Past Surgical History: Adenoidectomy, Back Surgery, Joint Replacement, Orthopedic Surgery, Tonsillectomy Additional Past Surgical History / Comment(s): Neck surgery, ZAY KNEE REPLACEMENT, FUSION T-12 TO L-5 METAL REMOVED, L5 TO S1 - AND REFUSED,KNEE ARTHROSCOPY X3. RT FOOT METATRSAL BROKEN, BIOPSY ON ZAY BREAST-NEG, ZAY CARPAL TUNNEL, LT HAND BASAL. ARTHROSOCPY,UMBILICAL HERNIA, [place] 09/2012; LAPROSCOPY, B CATARACTS. Past Anesthesia/Blood Transfusion Reactions: Family History of Problems w/ Anesthesia, Postoperative Nausea & Vomiting (PONV) Additional Past Anesthesia/Blood Transfusion Reaction / Comment(s): HAD BLOOD TRANSFUSION IN PAST. SISTER HAD PROB BREATHING AFTER SURG. Past Psychological History: Depression Smoking Status: Former smoker Past Alcohol Use History: None Reported Past Drug Use History: None Reported - Past Family History Father Family Medical History: Cancer Additional Family Medical History / Comment(s): LUNG CA - BOTH PARENTS Mother Family Medical History: Cancer General Exam Limitations: physical limitation Course Vital Signs 05/16/17 10:41 Temperature 98.9 F Pulse Rate 107 H Respiratory 24 Rate Blood Pressure 120/55 O2 Sat by Pulse 98 Oximetry Medical Decision Making - Medical Decision Making Patient reexamined at this time shows no signs of distress. She does not that she's feeling much better. Patient's labs been reviewed mildly elevated AST ALT. Hepatitis panel is pending. Patient feeling better after nausea medication. Patient's abdomen soft nontender. Patient influenza negative. Patient does have Stallings catheter. This will be removed she currently is on antibiotic. Advised patient follow-up over the next 2 days return here to the emergency room symptoms increase or worsen or for any other concerns. - Lab Data Result diagrams: 05/16/17 10:55 05/16/17 10:55 Lab Results 05/16/17 05/16/17 05/16/17 Range/Units 10:55 10:55 10:55 WBC 10.6 (3.8-10.6) k/uL RBC 3.83 (3.80-5.40) m/uL Hgb 11.6 (11.4-16.0) gm/dL Hct 37.4 (34.0-46.0) % MCV 97.6 (80.0-100.0) fL MCH 30.3 (25.0-35.0) pg MCHC 31.0 (31.0-37.0) g/dL RDW 15.2 (11.5-15.5) % Plt Count 295 (150-450) k/uL Neutrophils % 93 % Lymphocytes % 4 % Monocytes % 2 % Eosinophils % 0 % Basophils % 0 % Neutrophils # 9.8 H (1.3-7.7) k/uL Lymphocytes # 0.4 L (1.0-4.8) k/uL Monocytes # 0.2 (0-1.0) k/uL Eosinophils # 0.0 (0-0.7) k/uL Basophils # 0.0 (0-0.2) k/uL Hypochromasia Slight PT (9.0-12.0) sec INR (<1.2) APTT (22.0-30.0) sec Sodium 146 H (137-145) mmol/L Potassium 4.5 (3.5-5.1) mmol/L Chloride 105 (98-107) mmol/L Carbon Dioxide 29 (22-30) mmol/L Anion Gap 12 mmol/L BUN 39 H (7-17) mg/dL Creatinine 0.90 (0.52-1.04) mg/dL Est GFR (MDRD) Af Amer >60 (>60 ml/min/1.73 sqM) Est GFR (MDRD) Non-Af >60 (>60 ml/min/1.73 sqM) Glucose 161 H (74-99) mg/dL Calcium 9.2 (8.4-10.2) mg/dL Total Bilirubin 0.4 (0.2-1.3) mg/dL AST 197 H (14-36) U/L ALT 163 H (9-52) U/L Alkaline Phosphatase 117 (38-126) U/L Total Protein 7.0 (6.3-8.2) g/dL Albumin 4.0 (3.5-5.0) g/dL Amylase 34 (30-110) U/L Lipase 98 (23-300) U/L Urine Color Urine Appearance (Clear) Urine pH (5.0-8.0) Ur Specific [place] (1.001-1.035) Urine Protein (Negative) Urine Glucose (UA) (Negative) Urine Ketones (Negative) Urine Blood (Negative) Urine Nitrite (Negative) Urine Bilirubin (Negative) Urine Urobilinogen (<2.0) mg/dL Ur Leukocyte Esterase (Negative) Urine RBC (0-5) /hpf Urine WBC (0-5) /hpf Ur Squamous Epith Cells (0-4) /hpf Urine Bacteria (None) /hpf Urine Mucus (None) /hpf Ur Yeast w Hyphae (None) /hpf Urine Yeast (Budding) (None) /hpf Influenza Type A RNA Not Detected (Not Detectd) Influenza Type B (PCR) Not Detected (Not Detectd) 05/16/17 05/16/17 Range/Units 11:15 12:16 WBC (3.8-10.6) k/uL RBC (3.80-5.40) m/uL Hgb (11.4-16.0) gm/dL Hct (34.0-46.0) % MCV (80.0-100.0) fL MCH (25.0-35.0) pg MCHC (31.0-37.0) g/dL RDW (11.5-15.5) % Plt Count (150-450) k/uL Neutrophils % % Lymphocytes % % Monocytes % % Eosinophils % % Basophils % % Neutrophils # (1.3-7.7) k/uL Lymphocytes # (1.0-4.8) k/uL Monocytes # (0-1.0) k/uL Eosinophils # (0-0.7) k/uL Basophils # (0-0.2) k/uL Hypochromasia PT 10.1 (9.0-12.0) sec INR 1.0 (<1.2) APTT 23.5 (22.0-30.0) sec Sodium (137-145) mmol/L Potassium (3.5-5.1) mmol/L Chloride (98-107) mmol/L Carbon Dioxide (22-30) mmol/L Anion Gap mmol/L BUN (7-17) mg/dL Creatinine (0.52-1.04) mg/dL Est GFR (MDRD) Af Amer (>60 ml/min/1.73 sqM) Est GFR (MDRD) Non-Af (>60 ml/min/1.73 sqM) Glucose (74-99) mg/dL Calcium (8.4-10.2) mg/dL Total Bilirubin (0.2-1.3) mg/dL AST (14-36) U/L ALT (9-52) U/L Alkaline Phosphatase (38-126) U/L Total Protein (6.3-8.2) g/dL Albumin (3.5-5.0) g/dL Amylase (30-110) U/L Lipase (23-300) U/L Urine Color Yellow Urine Appearance Cloudy H (Clear) Urine pH 5.5 (5.0-8.0) Ur Specific [place] 1.016 (1.001-1.035) Urine Protein 1+ H (Negative) Urine Glucose (UA) Negative (Negative) Urine Ketones Negative (Negative) Urine Blood Negative (Negative) Urine Nitrite Negative (Negative) Urine Bilirubin Negative (Negative) Urine Urobilinogen <2.0 (<2.0) mg/dL Ur Leukocyte Esterase Small H (Negative) Urine RBC 10 H (0-5) /hpf Urine WBC 10 H (0-5) /hpf Ur Squamous Epith Cells 1 (0-4) /hpf Urine Bacteria Few H (None) /hpf Urine Mucus Rare H (None) /hpf Ur Yeast w Hyphae Occasional (None) /hpf Urine Yeast (Budding) Many H (None) /hpf Influenza Type A RNA (Not Detectd) Influenza Type B (PCR) (Not Detectd) Disposition Clinical Impression: Nausea & vomiting Disposition: HOME SELF-CARE Condition: Good Instructions: Acute Nausea and Vomiting (ED) Additional Instructions: Please use medication as discussed. Please follow-up with family doctor in the next 2 days of symptoms have not improved. Please return to emergency room if the symptoms increase or worsen or for any other concerns. Prescriptions: Ondansetron Odt [Zofran ODT] 4 mg PO Q8HR PRN #20 tab PRN Reason: Nausea Referrals: Raymond Andrade MD [Primary Care Provider] - 1-2 days Time of Disposition: 13:06
[2017-05-16 11:33] LABS: Basophils % (A) 0 %; Eosinophils % (A) 0 %; HCT 37.4 % (34.0-46.0); HGB 11.6 gm/dL (11.4-16.0); Hypochromasia Slight; Lymphocytes # (A) 0.4 k/uL (1.0-4.8); Lymphocytes % (A) 4 %; MCH 30.3 pg (25.0-35.0); MCV 97.6 fL (80.0-100.0); Mean Platelet Volume 7.1; Monocytes # (A) 0.2 k/uL (0-1.0); Monocytes % (A) 2 %; Neutrophils # (A) 9.8 k/uL (1.3-7.7); Neutrophils % (A) 93 %; Platelet Count 295 k/uL (150-450); RBC 3.83 m/uL (3.80-5.40); RDW 15.2 % (11.5-15.5); WBC 10.6 k/uL (3.8-10.6)
[2017-05-16 11:40] LABS: Appearance,Urine Cloudy (Clear); Bacteria,Urine Few /hpf; Bilirubin,Urine Negative (Negative); Blood,Urine Negative (Negative); Budding Yeast,Urine Many /hpf; Color,Urine Yellow; Glucose,Urine (UA) Negative (Negative); Hyphae Yeast, Urine Occasional /hpf; Ketones,Urine Negative (Negative); Leukocyte Esterase,Urine Small (Negative); Mucus,Urine Rare /hpf; Nitrite,Urine Negative (Negative); PH, Urine 5.5 (5.0-8.0); Protein,Urine 1+ (Negative); RBC,Urine 10 /hpf (0-5); Specific Gravity,Urine 1.016 (1.001-1.035); Squamous Epithelial Cell,Urine 1 /hpf (0-4); Urobilinogen,Urine <2.0 mg/dL (<2.0); WBC,Urine 10 /hpf (0-5)
[2017-05-16 11:41] LABS: Amylase 34 U/L (30-110); Anion Gap 12 mmol/L; Calcium 9.2 mg/dL (8.4-10.2); Carbon Dioxide 29 mmol/L (22-30); Chloride 105 mmol/L (98-107); Glucose 161 mg/dL (74-99); Lipase 98 U/L (23-300); Sodium 146 mmol/L (137-145); Total Bilirubin 0.4 mg/dL (0.2-1.3)
[2017-05-16 11:42] LABS: ALT 163 U/L (9-52); AST 197 U/L (14-36); Alkaline Phosphatase 117 U/L (38-126); Blood Urea Nitrogen 39 mg/dL (7-17); Potassium 4.5 mmol/L (3.5-5.1)
--- NOTE | 2017-05-16 11:59 | XR ---
EXAMINATION TYPE: XR chest 2V DATE OF EXAM: 05/16/2017 COMPARISON: 01/26/2017 HISTORY: 66-year-old female with cough TECHNIQUE: AP and lateral views FINDINGS: ACF hardware. Suspect full-thickness rotator cuff tear on the right and rotator cuff arthropathy. Th ere seems to be a right-sided CVC, tip probably at the mid SVC. Heart borderline enlarged. Diffuse in terstitial prominence unchanged. Additional hazy bilateral densities likely related to overlying soft tissue. No consolidation or definite pleural effusion. IMPRESSION: Chronic changes and borderline heart size. No definite acute process.
[2017-05-16] MEDS ORDERED: ONDANSETRON 4 MG/2 ML VIAL IVP STA (12:04)
[2017-05-16 12:52] LABS: Partial Thromboplastin Time 23.5 sec (22.0-30.0); Prothrombin Time 10.1 sec (9.0-12.0)
[2017-05-16 14:28] VITALS: BP 113/56; PULSE 106; RESP 20; TEMP 98.9
[2017-05-16 19:25] LABS: Hepatitis A Antibody IgM Non-Reactive (Non-Reactive); Hepatitis B Core IgM Non-Reactive (Non-Reactive)
== END 2017-05-16 14:55 | disposition home or self-care (01) ==
LOC: EC 10:37
DX: R11.2 Nausea with vomiting, unspecified (principal); R74.0 Nonspecific elevation of levels of transaminase and lactic acid dehydrogenase [LDH]; R19.7 Diarrhea, unspecified; R10.9 Unspecified abdominal pain; I10 Essential (primary) hypertension; J44.9 Chronic obstructive pulmonary disease, unspecified; E11.9 Type 2 diabetes mellitus without complications; K21.9 Gastro-esophageal reflux disease without esophagitis; G47.33 Obstructive sleep apnea (adult) (pediatric); M19.90 Unspecified osteoarthritis, unspecified site; F32.9 Major depressive disorder, single episode, unspecified; Z87.891 Personal history of nicotine dependence; Z79.1 Long term (current) use of non-steroidal anti-inflammatories (NSAID); Z79.4 Long term (current) use of insulin; Z79.51 Long term (current) use of inhaled steroids; Z79.82 Long term (current) use of aspirin; Z79.899 Other long term (current) drug therapy; Z88.1 Allergy status to other antibiotic agents; Z88.8 Allergy status to other drugs, medicaments and biological substances; Z87.01 Personal history of pneumonia (recurrent); Z87.440 Personal history of urinary (tract) infections; Z99.89 Dependence on other enabling machines and devices
CPT/HCPCS: 99284; 96374; 96361 ×4; 36415; 80053; 80074; 82150; 83690; 85025; 85610; 85730; 81001; 87086; 87077; 87186; 87502; 71046; J2405

== ENCOUNTER → 2017-11-29 | Outpatient (CLI) | payer MEDICARE, OTHER ==
--- NOTE | 2017-12-04 12:49 | MM ---
Reason for exam: screening (asymptomatic). Last mammogram was performed 1 year and 1 month ago. History: Benign US biopsy breast VAD RT of the right breast, January 03, 2016. Benign stereotactic core biopsy of the right breast, January 30, 2003. Core biopsy of the right breast. Physical Findings: A clinical breast exam by your physician is recommended on an annual basis and results should be correlated with mammographic findings. MG 3D Screening Mammo W/Cad Bilateral CC and MLO view(s) were taken. Prior study comparison: November 08, 2016, bilateral MG 3d diag mammo w/cad ZAY. Finding #1: There is stable architectural distortion in the upper quadrant of the right breast. Finding #2: There are typically benign round calcifications in both breasts. Previous mammotome biopsy in the right breast x 2. There is a chronic nodularity bilaterally. Asymmetric breast tissue at the medial right clip. There is no discrete abnormality. ASSESSMENT: Benign, BI-RAD 2 RECOMMENDATION: Routine screening mammogram of both breasts in 1 year.
== END | disposition home or self-care (01) ==
LOC: RADMAMWWP 12:48
PROVIDERS: ATTEND Family Medicine
DX: Z12.31 Encounter for screening mammogram for malignant neoplasm of breast (principal)
CPT/HCPCS: 77063; 77067

== ENCOUNTER 2018-04-10 17:45 | Inpatient (IN) | payer MEDICARE, OTHER ==
[2018-04-10] MEDS ORDERED: IPRATROPIUM-ALBUTEROL 3 ML NEB INHALATION STA (18:33)
[2018-04-10] MEDS ORDERED: methylPREDNISolone SOD SUCCI 125 MG/2 ML VIAL IV STA (18:33)
--- NOTE | 2018-04-10 19:22 | ED ---
SOB HPI - General Chief Complaint: Shortness of Breath Stated Complaint: BLANK Time Seen by Provider: 04/10/18 18:16 Source: patient, EMS, RN notes reviewed Mode of arrival: EMS Limitations: no limitations - History of Present Illness Initial Comments: This is a 67-year-old female with a recent history of admission to [facility] who states she's been having cough shortness breath wheezing also some constipation. She states she was admitted and discharged in the early part of March. She has any chest pain. She is having some chills and shaking. Cough with yellow phlegm. No other modifying factors at this time. She states this started getting really bad between 11 12:00 today. MD Complaint: shortness of breath - Related Data Home Medications Medication Instructions Recorded Confirmed Ascorbic Acid [Vitamin C] 1,000 mg PO DAILY@1200 10/22/13 04/10/18 Aspirin 81 mg PO HS 10/22/13 04/10/18 Baclofen [Lioresal] 10 mg PO BID 10/22/13 04/10/18 Budesonide-Formot 160-4.5 Mcg 2 puff INHALATION RT-BID 10/22/13 04/10/18 [Symbicort 160-4.5 Mcg Inhaler] Cetirizine HCl [Zyrtec] 10 mg PO DAILY 10/22/13 04/10/18 Furosemide [Lasix] 40 mg PO DAILY 10/22/13 04/10/18 Montelukast Sodium [Singulair] 10 mg PO HS 10/22/13 04/10/18 Ergocalciferol [Vitamin D2 50,000 unit PO FR@1200 10/18/15 04/10/18 (DRISDOL)] Albuterol Inhaler [Ventolin Hfa 2 puff INHALATION RT-Q4H PRN 06/12/16 04/10/18 Inhaler] Citalopram Hydrobromide [CeleXA] 10 mg PO DAILY 06/12/16 04/10/18 Omeprazole [PriLOSEC] 20 mg PO HS 05/16/17 04/10/18 Slow Release Iron 145mg 145 mg PO DAILY 05/16/17 04/10/18 Amoxic-Pot Clav 875-125Mg 1 tab PO Q12H 04/10/18 04/10/18 [Augmentin 875-125] Gabapentin [Neurontin] 300 mg PO HS 04/10/18 04/10/18 HYDROcodone/APAP 5-325MG [Kay[place]e 1 tab PO Q8H PRN 04/10/18 04/10/18 5-325] Insulin Aspart [NovoLOG Flexpen] See Protocol SQ ACHS 04/10/18 04/10/18 Insulin Glargine,Hum.rec.anlog 15 - 20 unit SQ HS 04/10/18 04/10/18 [Lantus Solostar] Ipratropium-Albuterol Nebulize 3 ml INHALATION RT-Q4H 04/10/18 04/10/18 [Duoneb 0.5 mg-3 mg/3 ml Soln] Lactulose 20 gm PO Q2H PRN 04/10/18 04/10/18 Polyethylene Glycol 3350 [Miralax] 17 gm PO BID 04/10/18 04/10/18 Pravastatin Sodium [Pravachol] 20 mg PO HS 04/10/18 04/10/18 Sennosides [Senna] 25.8 mg PO BID@1200,2100 04/10/18 04/10/18 amLODIPine [Norvasc] 5 mg PO DAILY 04/10/18 04/10/18 predniSONE See Taper PO DAILY 04/10/18 04/10/18 Allergies Allergy/AdvReac Type Severity Reaction Status Date / Time acyclovir Allergy Rash/Hives Verified 04/10/18 18:28 ampicillin [From Unasyn] Allergy Dyspnea Verified 04/10/18 18:28 cephalexin [Cephalexin] Allergy Rash/Hives Verified 04/10/18 18:28 cephalexin monohydrate Allergy Rash/Hives Verified 04/10/18 18:28 [From Keflex] Cephalosporins Allergy Unknown Verified 04/10/18 18:28 erythromycin base Allergy Unknown Verified 04/10/18 18:28 famciclovir Allergy Rash/Hives Verified 04/10/18 18:28 meropenem [From Merrem] Allergy Anaphylaxis Verified 04/10/18 18:28 nitrofurantoin Allergy Unknown Verified 04/10/18 18:28 [From Macrobid] nitrofurantoin Allergy Unknown Verified 04/10/18 18:28 macrocrystalline [From Macrobid] sulbactam [From Unasyn] Allergy Dyspnea Verified 04/10/18 18:28 sulfamethoxazole Allergy Unknown Verified 04/10/18 18:28 [From Bactrim] trimethoprim [From Bactrim] Allergy Unknown Verified 04/10/18 18:28 Review of Systems ROS Statement: Those systems with pertinent positive or pertinent negative responses have been documented in the HPI. ROS Other: All systems not noted in ROS Statement are negative. Past Medical History Past Medical History: Asthma, COPD, Diabetes Mellitus, Fibromyalgia, GERD/Reflux , Hyperlipidemia, Hypertension, Osteoarthritis (OA), Pneumonia, Sleep Apnea/CPAP /BIPAP Additional Past Medical History / Comment(s): IDC, FREQ UTI. anemia; osteopenia ; parapalegic "R/T SPINAL SURG 2006, AND AMBULANCE INJURY LATER", obstructive sleep apnea, chronic Stallings catheter, shingles History of Any Multi-Drug Resistant Organisms: ESBL Date of last positivie culture/infection: 10/18/15 MDRO Source:: Urine-E.coli ESBL Past Surgical History: Adenoidectomy, Back Surgery, Joint Replacement, Orthopedic Surgery, Tonsillectomy Additional Past Surgical History / Comment(s): Neck surgery, ZAY KNEE REPLACEMENT, FUSION T-12 TO L-5 METAL REMOVED, L5 TO S1 - AND REFUSED,KNEE ARTHROSCOPY X3. RT FOOT METATRSAL BROKEN, BIOPSY ON ZAY BREAST-NEG, ZAY CARPAL TUNNEL, LT HAND BASAL. ARTHROSOCPY,UMBILICAL HERNIA, [place]AR[place] 09/2012; LAPROSCOPY, B CATARACTS. Garza removed Past Anesthesia/Blood Transfusion Reactions: Family History of Problems w/ Anesthesia, Postoperative Nausea & Vomiting (PONV) Additional Past Anesthesia/Blood Transfusion Reaction / Comment(s): HAD BLOOD TRANSFUSION IN PAST. SISTER HAD PROB BREATHING AFTER SURG. Past Psychological History: Depression Smoking Status: Former smoker Past Alcohol Use History: None Reported Past Drug Use History: None Reported - Past Family History Father Family Medical History: Cancer Additional Family Medical History / Comment(s): LUNG CA - BOTH PARENTS Mother Family Medical History: Cancer General Exam - General Exam Comments Initial Comments: This is a well-developed well-nourished awake alert oriented 3 female Limitations: no limitations General appearance: alert, anxious Head exam: Present: atraumatic, normocephalic, normal inspection Eye exam: Present: normal appearance, PERRL, EOMI. Absent: scleral icterus, conjunctival injection, periorbital swelling ENT exam: Present: normal exam, mucous membranes moist Neck exam: Present: normal inspection. Absent: tenderness, meningismus, lymphadenopathy Respiratory exam: Present: wheezes, accessory muscle use, decreased breath sounds. Absent: respiratory distress, rales, rhonchi, stridor Cardiovascular Exam: Present: normal rhythm, tachycardia, normal heart sounds. Absent: systolic murmur, diastolic murmur, rubs, gallop, clicks GI/Abdominal exam: Present: soft, normal bowel sounds. Absent: distended, tenderness, guarding, rebound, rigid Extremities exam: Present: normal inspection, full ROM, normal capillary refill. Absent: tenderness, pedal edema, joint swelling, calf tenderness Back exam: Present: normal inspection Neurological exam: Present: alert, oriented X3, CN II-XII intact Psychiatric exam: Present: normal affect, normal mood Skin exam: Present: warm, dry, intact, normal color. Absent: rash Course Vital Signs 04/10/18 04/10/18 04/10/18 17:49 19:24 19:28 Temperature 98.5 F Pulse Rate 106 H 92 Respiratory 20 22 Rate Blood Pressure 134/52 O2 Sat by Pulse 97 Oximetry 04/10/18 19:40 Temperature Pulse Rate 90 Respiratory Rate Blood Pressure O2 Sat by Pulse Oximetry Medical Decision Making - Medical Decision Making I did discuss the findings with the patient she is feeling not too much improved after the initial treatment she'll be admitted for COPD exacerbation and bronchitis the case is to be discussed with sounds hospitalist. . Dr. Perkins be consulted. - Lab Data Result diagrams: 04/10/18 19:10 04/10/18 19:10 Lab Results 04/10/18 04/10/18 04/10/18 Range/Units 19:10 19:10 19:10 WBC 3.9 (3.8-10.6) k/uL RBC 3.47 L (3.80-5.40) m/uL Hgb 10.1 L (11.4-16.0) gm/dL Hct 32.8 L (34.0-46.0) % MCV 94.4 (80.0-100.0) fL MCH 29.0 (25.0-35.0) pg MCHC 30.7 L (31.0-37.0) g/dL RDW 14.5 (11.5-15.5) % Plt Count 137 L (150-450) k/uL Neutrophils % 82 % Lymphocytes % 11 % Monocytes % 5 % Eosinophils % 1 % Basophils % 0 % Neutrophils # 3.2 (1.3-7.7) k/uL Lymphocytes # 0.4 L (1.0-4.8) k/uL Monocytes # 0.2 (0-1.0) k/uL Eosinophils # 0.1 (0-0.7) k/uL Basophils # 0.0 (0-0.2) k/uL Hypochromasia Slight PT (9.0-12.0) sec INR (<1.2) APTT (22.0-30.0) sec Sodium 141 (137-145) mmol/L Potassium 4.8 (3.5-5.1) mmol/L Chloride 101 (98-107) mmol/L Carbon Dioxide 35 H (22-30) mmol/L Anion Gap 5 mmol/L BUN 21 H (7-17) mg/dL Creatinine 0.85 (0.52-1.04) mg/dL Est GFR (CKD-EPI)AfAm 82 (>60 ml/min/1.73 sqM) Est GFR (CKD-EPI)NonAf 71 (>60 ml/min/1.73 sqM) Glucose 187 H (74-99) mg/dL Calcium 9.1 (8.4-10.2) mg/dL Magnesium 2.6 H (1.6-2.3) mg/dL Total Bilirubin 0.4 (0.2-1.3) mg/dL AST 22 (14-36) U/L ALT 47 (9-52) U/L Alkaline Phosphatase 96 (38-126) U/L Total Creatine Kinase <20 L (30-135) U/L CK-MB (CK-2) 0.3 (0.0-2.4) ng/mL CK-MB (CK-2) Rel Index Troponin I <0.012 (0.000-0.034) ng/mL NT-Pro-B Natriuret Pep pg/mL Total Protein 6.3 (6.3-8.2) g/dL Albumin 3.5 (3.5-5.0) g/dL 12/26/18 12/26/18 Range/Units 19:10 19:10 WBC (3.8-10.6) k/uL RBC (3.80-5.40) m/uL Hgb (11.4-16.0) gm/dL Hct (34.0-46.0) % MCV (80.0-100.0) fL MCH (25.0-35.0) pg MCHC (31.0-37.0) g/dL RDW (11.5-15.5) % Plt Count (150-450) k/uL Neutrophils % % Lymphocytes % % Monocytes % % Eosinophils % % Basophils % % Neutrophils # (1.3-7.7) k/uL Lymphocytes # (1.0-4.8) k/uL Monocytes # (0-1.0) k/uL Eosinophils # (0-0.7) k/uL Basophils # (0-0.2) k/uL Hypochromasia PT 9.5 (9.0-12.0) sec INR 0.9 (<1.2) APTT 21.8 L (22.0-30.0) sec Sodium (137-145) mmol/L Potassium (3.5-5.1) mmol/L Chloride (98-107) mmol/L Carbon Dioxide (22-30) mmol/L Anion Gap mmol/L BUN (7-17) mg/dL Creatinine (0.52-1.04) mg/dL Est GFR (CKD-EPI)AfAm (>60 ml/min/1.73 sqM) Est GFR (CKD-EPI)NonAf (>60 ml/min/1.73 sqM) Glucose (74-99) mg/dL Calcium (8.4-10.2) mg/dL Magnesium (1.6-2.3) mg/dL Total Bilirubin (0.2-1.3) mg/dL AST (14-36) U/L ALT (9-52) U/L Alkaline Phosphatase (38-126) U/L Total Creatine Kinase (30-135) U/L CK-MB (CK-2) (0.0-2.4) ng/mL CK-MB (CK-2) Rel Index Troponin I (0.000-0.034) ng/mL NT-Pro-B Natriuret Pep 503 pg/mL Total Protein (6.3-8.2) g/dL Albumin (3.5-5.0) g/dL - EKG Data -: EKG Interpreted by Me EKG shows normal: sinus rhythm (There was sinus rhythm at 90. Interval 136 QRS duration 90 QT since QTC 366/[address]-T wave changes) - Radiology Data Radiology results: report reviewed (I did review the imaging and report no acute findings.), image reviewed Disposition Clinical Impression: Acute exacerbation of chronic obstructive airways disease, Failure of outpatient treatment Disposition: ADMITTED IP TO THIS HOSP Condition: Stable Referrals: Raymond Andrade MD [Primary Care Provider] - 1-2 days
[2018-04-10 19:27] LABS: Basophils % (A) 0 %; Eosinophils # (A) 0.1 k/uL (0-0.7); Eosinophils % (A) 1 %; HCT 32.8 % (34.0-46.0); HGB 10.1 gm/dL (11.4-16.0); Hypochromasia Slight; Lymphocytes # (A) 0.4 k/uL (1.0-4.8); Lymphocytes % (A) 11 %; MCHC 30.7 g/dL (31.0-37.0); MCV 94.4 fL (80.0-100.0); Mean Platelet Volume 7.5; Monocytes # (A) 0.2 k/uL (0-1.0); Monocytes % (A) 5 %; Neutrophils # (A) 3.2 k/uL (1.3-7.7); Neutrophils % (A) 82 %; Platelet Count 137 k/uL (150-450); RBC 3.47 m/uL (3.80-5.40); RDW 14.5 % (11.5-15.5); WBC 3.9 k/uL (3.8-10.6)
[2018-04-10 19:38] LABS: INR 0.9 (<1.2); Prothrombin Time 9.5 sec (9.0-12.0)
[2018-04-10 19:44] LABS: Partial Thromboplastin Time 21.8 sec (22.0-30.0)
[2018-04-10 19:45] LABS: Albumin 3.5 g/dL (3.5-5.0); Calcium 9.1 mg/dL (8.4-10.2); Magnesium 2.6 mg/dL (1.6-2.3); Potassium 4.8 mmol/L (3.5-5.1); Total Bilirubin 0.4 mg/dL (0.2-1.3); Total Protein 6.3 g/dL (6.3-8.2)
[2018-04-10 19:56] LABS: Creatine Kinase <20 U/L (30-135)
[2018-04-10 20:12] LABS: Creatine Kinase MB 0.3 ng/mL (0.0-2.4); Troponin I <0.012 ng/mL (0.000-0.034)
--- NOTE | 2018-04-10 20:33 | XR ---
EXAMINATION TYPE: XR chest 2V DATE OF EXAM: 04/10/2018 COMPARISON: 05/16/2017 HISTORY: Difficulty breathing TECHNIQUE: Frontal and lateral views of the chest are obtained. FINDINGS: There is no heart failure nor confluent pneumonic infiltrate. Costophrenic angles are tonie r. Heart size is normal. There are chest leads. IMPRESSION: No active cardiopulmonary disease. No change.
[2018-04-10] MEDS ORDERED: HYDROcodone/APAP 5-325MG 1 EACH TAB PO PRN (21:07)
[2018-04-10 21:41] LABS: Glucose,Whole Blood 195 mg/dL (75-99)
[2018-04-10] MEDS ORDERED: NALOXONE 0.4 MG/ML 1 ML VIAL IV PRN (22:52)
[2018-04-10] MEDS: IPRATROPIUM-ALBUTEROL 3 ML NEB INHALATION SCH (23:06)
--- NOTE | 2018-04-10 23:13 | P.HPIM ---
History of Present Illness H&P Date: 04/10/18 Chief Complaint: Shortness of breath and wheezing 67-year-old female with history of diabetes mellitus, paraplegia from spinal cord injury, COPD on home oxygen. Patient was brought into the hospital due to worsening symptoms of breathing with shortness of breath and wheezing, however patient and family reported multiple other chronic issues Patient normally seen by a visiting doctor at home. She was recently admitted to [facility] from March 15 until discharge on March 26 where she was diagnosed with sepsis secondary to UTI during that hospital course her Santana port which she had for 5 years was removed due to suspicion of bacteremia and sepsis, she was treated with antibiotics and then once stabilized she was discharged home with a Stallings catheter in place due to bladder dysfunction and to finish a course of oral antibiotic ciprofloxacin. Patient daughter reports very foul smell from the urine back at this time. But denies any hematuria denies any fevers denies any lower abdominal pain. This time patient is having some shortness of breath however she's been on a tapering dose of steroid at home due to recent attack of acute COPD exacerbation and she is currently taking Augmentin and steroids. With no much benefit. And worsening symptoms over the past 3 days Patient notices worsening of her breathing with wheezing and coughing and shortness of breath along with productive cough of yellowish sputum and chills. For which patient decided come the hospital for IV treatment for her visiting doctor recommendations. She also reports sick contacts with her grandkids who were diagnosed with bronchitis She also complains of constipation but still passing gases her last bowel movement was about 910 days ago. She otherwise denies any nausea or vomiting but she has decreased her by mouth intake and attempt to lose weight. At home her daughter tried multiple bowel regimens including multiple enemas with no benefit patient daughter suspects fecal impaction which she had in the past. Patient also raises concerns regarding her Santana port that was removed during her most recent hospitalization which she had for 5 years that normally helps her with blood draws and IV medications at home when her visiting doctor recommended them. And she would like to consider having a Mediport inserted or PICC line Review of Systems Pertinent positives as noted in HPI. All other systems were reviewed and are negative Past Medical History Past Medical History: Asthma, COPD, Diabetes Mellitus, Fibromyalgia, GERD/Reflux , Hyperlipidemia, Hypertension, Osteoarthritis (OA), Pneumonia, Sleep Apnea/CPAP /BIPAP Additional Past Medical History / Comment(s): IDC, FREQ UTI. anemia; osteopenia ; parapalegic "R/T SPINAL SURG 2006, AND AMBULANCE INJURY LATER", obstructive sleep apnea, chronic Stallings catheter, shingles History of Any Multi-Drug Resistant Organisms: ESBL Date of last positivie culture/infection: 10/18/15 MDRO Source:: Urine-E.coli ESBL Past Surgical History: Adenoidectomy, Back Surgery, Joint Replacement, Orthopedic Surgery, Tonsillectomy Additional Past Surgical History / Comment(s): Neck surgery, ZAY KNEE REPLACEMENT, FUSION T-12 TO L-5 METAL REMOVED, L5 TO S1 - AND REFUSED,KNEE ARTHROSCOPY X3. RT FOOT METATRSAL BROKEN, BIOPSY ON ZAY BREAST-NEG, ZAY CARPAL TUNNEL, LT HAND BASAL. ARTHROSOCPY,UMBILICAL HERNIA, SANTANA 09/2012; LAPROSCOPY, B CATARACTS. Santana removed Past Anesthesia/Blood Transfusion Reactions: Family History of Problems w/ Anesthesia, Postoperative Nausea & Vomiting (PONV) Additional Past Anesthesia/Blood Transfusion Reaction / Comment(s): HAD BLOOD TRANSFUSION IN PAST. SISTER HAD PROB BREATHING AFTER SURG. Past Psychological History: Depression Smoking Status: Former smoker Past Alcohol Use History: None Reported Past Drug Use History: None Reported - Past Family History Father Family Medical History: Cancer Additional Family Medical History / Comment(s): LUNG CA - BOTH PARENTS Mother Family Medical History: Cancer Medications and Allergies Home Medications Medication Instructions Recorded Confirmed Type Ascorbic Acid [Vitamin C] 1,000 mg PO DAILY@1200 10/22/13 04/10/18 History Aspirin 81 mg PO HS 10/22/13 04/10/18 History Baclofen [Lioresal] 10 mg PO BID 10/22/13 04/10/18 History Budesonide-Formot 160-4.5 Mcg 2 puff INHALATION RT-BID 10/22/13 04/10/18 History [Symbicort 160-4.5 Mcg Inhaler] Cetirizine HCl [Zyrtec] 10 mg PO DAILY 10/22/13 04/10/18 History Furosemide [Lasix] 40 mg PO DAILY 10/22/13 04/10/18 History Montelukast Sodium [Singulair] 10 mg PO HS 10/22/13 04/10/18 History Ergocalciferol [Vitamin D2 50,000 unit PO FR@1200 10/18/15 04/10/18 History (DRISDOL)] Albuterol Inhaler [Ventolin Hfa 2 puff INHALATION RT-Q4H PRN 06/12/16 04/10/18 History Inhaler] Citalopram Hydrobromide [CeleXA] 10 mg PO DAILY 06/12/16 04/10/18 History Omeprazole [PriLOSEC] 20 mg PO HS 05/16/17 04/10/18 History Slow Release Iron 145mg 145 mg PO DAILY 05/16/17 04/10/18 History Amoxic-Pot Clav 875-125Mg 1 tab PO Q12H 04/10/18 04/10/18 History [Augmentin 875-125] Gabapentin [Neurontin] 300 mg PO HS 04/10/18 04/10/18 History HYDROcodone/APAP 5-325MG [[place] 1 tab PO Q8H PRN 04/10/18 04/10/18 History 5-325] Insulin Aspart [NovoLOG Flexpen] See Protocol SQ ACHS 04/10/18 04/10/18 History Insulin Glargine,Hum.rec.anlog 15 - 20 unit SQ HS 04/10/18 04/10/18 History [Lantus Solostar] Ipratropium-Albuterol Nebulize 3 ml INHALATION RT-Q4H 04/10/18 04/10/18 History [Duoneb 0.5 mg-3 mg/3 ml Soln] Lactulose 20 gm PO Q2H PRN 04/10/18 04/10/18 History Polyethylene Glycol 3350 [Miralax] 17 gm PO BID 04/10/18 04/10/18 History Pravastatin Sodium [Pravachol] 20 mg PO HS 04/10/18 04/10/18 History Sennosides [Senna] 25.8 mg PO BID@1200,2100 04/10/18 04/10/18 History amLODIPine [Norvasc] 5 mg PO DAILY 04/10/18 04/10/18 History predniSONE See Taper PO DAILY 04/10/18 04/10/18 History Allergies Allergy/AdvReac Type Severity Reaction Status Date / Time acyclovir Allergy Rash/Hives Verified 04/10/18 18:28 ampicillin [From Unasyn] Allergy Dyspnea Verified 04/10/18 18:28 cephalexin [Cephalexin] Allergy Rash/Hives Verified 04/10/18 18:28 cephalexin monohydrate Allergy Rash/Hives Verified 04/10/18 18:28 [From Keflex] Cephalosporins Allergy Unknown Verified 04/10/18 18:28 erythromycin base Allergy Unknown Verified 04/10/18 18:28 famciclovir Allergy Rash/Hives Verified 04/10/18 18:28 meropenem [From Merrem] Allergy Anaphylaxis Verified 04/10/18 18:28 nitrofurantoin Allergy Unknown Verified 04/10/18 18:28 [From Macrobid] nitrofurantoin Allergy Unknown Verified 04/10/18 18:28 macrocrystalline [From Macrobid] sulbactam [From Unasyn] Allergy Dyspnea Verified 04/10/18 18:28 sulfamethoxazole Allergy Unknown Verified 04/10/18 18:28 [From Bactrim] trimethoprim [From Bactrim] Allergy Unknown Verified 04/10/18 18:28 Physical Exam Vitals: Vital Signs Temp Pulse Resp BP Pulse Ox 04/10/18 20:47 85 18 159/93 96 04/10/18 19:40 90 04/10/18 19:28 92 04/10/18 19:24 22 04/10/18 17:49 98.5 F 106 H 20 134/52 97 Intake and Output 04/10/18 04/10/18 04/10/18 06:59 14:59 22:59 Other: Weight 145.15 kg Constitutional: No acute distress, conversant, pleasant Eyes: Anicteric sclerae, moist conjunctiva, no lid-lag Pupils equal round reactive to light ENMT: NC/AT Oropharynx clear, no erythema, exudates Neck: Supple, FROM, no masses, or JVD No carotid bruits No thyromegaly Lungs: Diminished breath sounds throughout with prolonged expiratory phase and diffuse rhonchi Clear to percussion Normal respiratory effort, no accessory muscle use Cardiovascular: Heart regular in rate and rhythm, No murmurs, gallops, or rubs Trace leg edema bilateral Abdominal: mildly distended, increased tone of tympanic percussion Some discomfort diffuse to deep palpation, no guarding, rebound or rigidity Abdomen moving with respiration Normoactive bowel sounds No hepatomegaly, No splenomegaly No palpable mass No abdominal wall hernia noted Chronic Stallings catheter in place from home Skin: Normal temperature, tone, texture, turgor No induration No subcutaneous nodules No rash, lesions No ulcers Extremities: No digital cyanosis No clubbing Pedal pulses intact and symmetrical Radial pulses intact and symmetrical No calf tenderness Psychiatric: Alert and oriented to person, place and time Appropriate affect fair judgment Neuro Muscles Strength 2 out of 5 in distal muscle group of bilateral lower extremities, otherwise paraplegic, 4 out of 5 in bilateral upper extremities proximal and distal muscle groups Sensation to light touch grossly present throughout Cranial nerves II-XII grossly intact No focal sensory deficits Lymphatics: no palpable cervical or supraclavicular , or inguinal lymph nodes Results CBC & Chem 7: 04/10/18 19:10 04/10/18 19:10 Labs: Abnormal Lab Results - Last 24 Hours (Table) 04/10/18 04/10/18 04/10/18 Range/Units 19:10 19:10 19:10 RBC 3.47 L (3.80-5.40) m/uL Hgb 10.1 L (11.4-16.0) gm/dL Hct 32.8 L (34.0-46.0) % MCHC 30.7 L (31.0-37.0) g/dL Plt Count 137 L (150-450) k/uL Lymphocytes # 0.4 L (1.0-4.8) k/uL APTT (22.0-30.0) sec Carbon Dioxide 35 H (22-30) mmol/L BUN 21 H (7-17) mg/dL Glucose 187 H (74-99) mg/dL POC Glucose (mg/dL) (75-99) mg/dL Magnesium 2.6 H (1.6-2.3) mg/dL Total Creatine Kinase <20 L (30-135) U/L 04/10/18 04/10/18 Range/Units 19:10 21:38 RBC (3.80-5.40) m/uL Hgb (11.4-16.0) gm/dL Hct (34.0-46.0) % MCHC (31.0-37.0) g/dL Plt Count (150-450) k/uL Lymphocytes # (1.0-4.8) k/uL APTT 21.8 L (22.0-30.0) sec Carbon Dioxide (22-30) mmol/L BUN (7-17) mg/dL Glucose (74-99) mg/dL POC Glucose (mg/dL) 195 H (75-99) mg/dL Magnesium (1.6-2.3) mg/dL Total Creatine Kinase (30-135) U/L Assessment and Plan Assessment: 67-year-old female with past medical history of COPD on home oxygen, hypertension and diabetes. Patient admitted as an inpatient with anticipated length of stay more than 48 hours due to acute COPD exacerbation, other chronic issues patient was reporting cconstipation and having chronic Stallings catheter since her last admission to [facility] on March 15 of this year. Plan: Acute on chronic COPD exacerbation Chronic hypoxic and hypercarbic respiratory failure on home oxygen 3 L Patient has multiple sick contacts, check influenza Systemic steroids Inhalers long-acting around the clock When necessary DuoNeb's Continue with Augmentin from home Check pulse ox Chest x-ray unremarkable Consult pulmonary service Constipation, no bowel movements for 9-10 days, but continues to pass gas as Rule out fecal impaction General surgery consult Check acute abdominal series Continue with bowel regimens Patient failed multiple enemas at home Diabetes mellitus on insulin Continue with basal and insulin sliding scale Hypertension currently controlled Continue with home medications amlodipine Chronic Stallings catheter present on admission Remove Stallings catheter in place with a clean one, and then check a clean urine sample for any infection Patient has chronic issues with urinary incontinence and retention due to bladder dysfunction Patient reports foul smell urine Patient would like to be evaluated for Mediport or PICC line upon discharge to help with blood draws and IV meds that are sometimes done by her visiting physician Chronic anemia currently at her baseline Patient denies any GI bleeding Continue to monitor Mild thrombocytopenia patient denies any evidence of bleeding, continue to monitor DVT prophylaxis heparin subcu 3 times a day Obstructive sleep apnea Patient encouraged to use her own BiPAP machine Preformed a thorough record review from recent hospitalization at [facility] patient and family reported treatment for sepsis over the UTI with sepsis where she stayed for almost 2 weeks, she was discharged with a Stallings catheter in place and continued on oral antibiotics with Cipro upon completion of the course of Cipro she was started on Augmentin with steroids due to COPD issues, patient had Santana ports which was removed during that hospitalization due to suspicion of sepsis. Surrogate decision-maker: *Patient daughter CODE STATUS: Full code Discussed with: Patient, ER, RN Anticipated discharge: 48-[address]: Pending clinical course A total of 55 minutes was spent on the care of this complex patient more than 50 % of the time was spent in counseling and care coordination.
[2018-04-11] MEDS: LACTULOSE 20 GM/30 ML CUP PO PRN (01:02)
[2018-04-11] MEDS: methylPREDNISolone SOD SUCCI 125 MG/2 ML VIAL IV SCH ×5 (01:02→23:33)
[2018-04-11] MEDS: MELATONIN 3 MG TABLET PO PRN ×2 (01:02→20:23)
[2018-04-11] MEDS: HEPARIN SODIUM,PORCINE 5,000 UNIT/ML 1 ML VIAL SQ SCH ×4 (01:02→23:33)
[2018-04-11] MEDS: AMOXIC-POT CLAV 875-125MG 1 EACH TAB PO SCH ×2 (01:03→08:07)
[2018-04-11] MEDS: SODIUM CHLORIDE 0.9% 1,000 ML IV SCH ×2 (01:04→23:34)
[2018-04-11] MEDS: IPRATROPIUM-ALBUTEROL 3 ML NEB INHALATION SCH ×5 (03:13→21:01)
[2018-04-11 07:33] LABS: Glucose,Whole Blood 348 mg/dL (75-99)
[2018-04-11 07:49] LABS: Albumin 3.4 g/dL (3.5-5.0); Calcium 8.9 mg/dL (8.4-10.2); Magnesium 2.7 mg/dL (1.6-2.3); Potassium 4.9 mmol/L (3.5-5.1); Total Bilirubin 0.4 mg/dL (0.2-1.3); Total Protein 6.2 g/dL (6.3-8.2)
[2018-04-11] MEDS: INSULIN ASPART 100 UNIT/ML 1 ML 10 ML VIAL SQ SCH ×4 (07:51→21:50)
[2018-04-11] MEDS: CITALOPRAM HYDROBROMIDE 10 MG TAB PO SCH (07:52)
[2018-04-11] MEDS: LORATADINE 10 MG TAB PO SCH (07:52)
[2018-04-11] MEDS: FUROSEMIDE 40 MG TAB PO SCH (07:52)
[2018-04-11] MEDS: BACLOFEN 10 MG TAB PO SCH ×2 (07:52→20:22)
[2018-04-11] MEDS: POLYETHYLENE GLYCOL 3350 17 GM POWD.PACK PO SCH ×2 (07:54→20:22)
[2018-04-11 08:09] LABS: Basophils % (A) 0 %; Eosinophils # (A) 0.1 k/uL (0-0.7); Eosinophils % (A) 3 %; HCT 32.3 % (34.0-46.0); HGB 10.1 gm/dL (11.4-16.0); Hypochromasia Slight; Lymphocytes # (A) 0.3 k/uL (1.0-4.8); Lymphocytes % (A) 10 %; MCH 29.1 pg (25.0-35.0); MCHC 31.1 g/dL (31.0-37.0); MCV 93.5 fL (80.0-100.0); Mean Platelet Volume 8.2; Monocytes # (A) 0.1 k/uL (0-1.0); Monocytes % (A) 2 %; Neutrophils # (A) 2.9 k/uL (1.3-7.7); Neutrophils % (A) 84 %; Platelet Count 128 k/uL (150-450); RBC 3.46 m/uL (3.80-5.40); RDW 14.4 % (11.5-15.5); WBC 3.5 k/uL (3.8-10.6)
[2018-04-11] MEDS ORDERED: amLODIPine 5 MG TAB PO SCH (09:00)
--- NOTE | 2018-04-11 09:45 | XR ---
EXAMINATION TYPE: XR chest 2V DATE OF EXAM: 04/11/2018 COMPARISON: 03/11/2018 HISTORY: 67-year-old female shortness of breath, COPD TECHNIQUE: Frontal and lateral views FINDINGS: Large patient body habitus causing underpenetration limiting assessment. ACDF hardware. Heart appears mildly enlarged. Diffuse interstitial prominence. Stable focal lobulation along the posterior aspect of the hemidiaphragm on the lateral view probably representing some diaphragmatic eventration. Stabl e as compared to 01/26/2017. No significant effusion. IMPRESSION: Cardiomegaly and interstitial changes. Correlate for possible mild CHF. Bronchitis or asthma are also possibilities. Limited, underpenetrated exam.
[2018-04-11] MEDS ORDERED: amLODIPine 5 MG TAB PO STA (10:19)
--- NOTE | 2018-04-11 10:22 | P.PN ---
Subjective Progress Note Date: 04/11/18 Patient complaining of ongoing wheezing although they are improved after her recent breathing treatment. Denies any chest pain, recently back from her chest x-ray suggesting mild CHF versus bronchitis asthma. Patient reports ongoing constipation no bowel movement in the last 8 days, denies any subjective fevers chills or night sweats. No acute events overnight. Patient unhappy her Garza port was recently removed reporting no history of bacteremia. Objective - Vital Signs Vital signs: Vital Signs Temp 97.7 F 04/11/18 05:00 Pulse 80 04/11/18 09:06 Resp 20 04/11/18 05:00 BP 158/84 04/11/18 05:00 Pulse Ox 96 04/11/18 08:54 Intake & Output 04/10/18 04/11/18 04/11/18 18:59 06:59 18:59 Output Total 75 Balance -75 Weight 145.15 kg 145 kg Output: Urine 75 Other: Voiding Method Indwelling Catheter Indwelling Catheter # Bowel Movements 0 - Exam Constitutional: No acute distress, conversant, pleasant Eyes: Anicteric sclerae, moist conjunctiva, no lid-lag, PERRLA ENMT: NC/AT,Oropharynx clear, no erythema, exudates Neck:Supple, FROM, no masses, or JVD, No carotid bruits; No thyromegaly Lungs: Expiratory wheezes diminished in the bases, Clear to percussion, Normal respiratory effort on 3 L nasal cannula, no accessory muscle use Cardiovascular: Heart regular in rate and rhythm, No murmurs, gallops, or rubs no peripheral edema Abdominal: Soft Nontender, mildly distended, no guarding, no rebound or rigidity, Normoactive bowel sounds No hepatomegaly, No splenomegaly, No palpable mass No abdominal wall hernia noted Skin: Normal temperature, tone, texture, turgor, No induration No subcutaneous nodules, No rash, lesions, No ulcers Extremities:No digital cyanosis No clubbing, Pedal pulses intact and symmetrical Radial pulses intact and symmetrical Normal gait and station, No calf tenderness Psychiatric: Alert and oriented to person, place and time, Appropriate affect Intact judgement Neuro: Muscles Strength 5/5 in all 4 extremities, Sensation to light touch grossly present throughout, Cranial nerves II-XII grossly intact. No focal sensory deficits - Labs CBC & Chem 7: 04/11/18 06:52 04/11/18 06:52 Labs: Abnormal Lab Results - Last 24 Hours (Table) 04/10/18 04/10/18 04/10/18 Range/Units 19:10 19:10 19:10 WBC (3.8-10.6) k/uL RBC 3.47 L (3.80-5.40) m/uL Hgb 10.1 L (11.4-16.0) gm/dL Hct 32.8 L (34.0-46.0) % MCHC 30.7 L (31.0-37.0) g/dL Plt Count 137 L (150-450) k/uL Lymphocytes # 0.4 L (1.0-4.8) k/uL APTT (22.0-30.0) sec Carbon Dioxide 35 H (22-30) mmol/L BUN 21 H (7-17) mg/dL Glucose 187 H (74-99) mg/dL POC Glucose (mg/dL) (75-99) mg/dL Magnesium 2.6 H (1.6-2.3) mg/dL Total Creatine Kinase <20 L (30-135) U/L Total Protein (6.3-8.2) g/dL Albumin (3.5-5.0) g/dL 04/10/18 04/10/18 04/11/18 Range/Units 19:10 21:38 06:52 WBC 3.5 L (3.8-10.6) k/uL RBC 3.46 L (3.80-5.40) m/uL Hgb 10.1 L (11.4-16.0) gm/dL Hct 32.3 L (34.0-46.0) % MCHC (31.0-37.0) g/dL Plt Count 128 L (150-450) k/uL Lymphocytes # 0.3 L (1.0-4.8) k/uL APTT 21.8 L (22.0-30.0) sec Carbon Dioxide (22-30) mmol/L BUN (7-17) mg/dL Glucose (74-99) mg/dL POC Glucose (mg/dL) 195 H (75-99) mg/dL Magnesium (1.6-2.3) mg/dL Total Creatine Kinase (30-135) U/L Total Protein (6.3-8.2) g/dL Albumin (3.5-5.0) g/dL 04/11/18 04/11/18 Range/Units 06:52 07:33 WBC (3.8-10.6) k/uL RBC (3.80-5.40) m/uL Hgb (11.4-16.0) gm/dL Hct (34.0-46.0) % MCHC (31.0-37.0) g/dL Plt Count (150-450) k/uL Lymphocytes # (1.0-4.8) k/uL APTT (22.0-30.0) sec Carbon Dioxide (22-30) mmol/L BUN 26 H (7-17) mg/dL Glucose 329 H (74-99) mg/dL POC Glucose (mg/dL) 348 H (75-99) mg/dL Magnesium 2.7 H (1.6-2.3) mg/dL Total Creatine Kinase (30-135) U/L Total Protein 6.2 L (6.3-8.2) g/dL Albumin 3.4 L (3.5-5.0) g/dL Assessment and Plan (1) Acute exacerbation of chronic obstructive airways disease Narrative/Plan: * Chronic hypoxic and hypercarbic respiratory failure on home oxygen 3 L * Influenza negative, chest x-ray suggesting cardiomegaly and interstitial changes, correlate for possible mild CHF Versus asthma bronchitis * Continue Systemic steroids, along with scheduled and when necessary bronchodilator DuoNeb breathing treatments * Continue with Augmentin from home * Consult pulmonary service Current Visit: Yes Status: Acute Code(s): J44.1 - CHRONIC OBSTRUCTIVE PULMONARY DISEASE W (ACUTE) EXACERBATION SNOMED Code(s): 469813743 (2) Type 2 diabetes mellitus with hyperglycemia Narrative/Plan: * Blood sugars elevated this morning at 348 compounded by ongoing steroid use to treat her COPD exacerbation * Increase basal insulin coverage to 20 units of Levemir daily at bedtime, initiate Accu-Cheks and correctional scale insulin coverage Current Visit: Yes Status: Acute Code(s): E11.65 - TYPE 2 DIABETES MELLITUS WITH HYPERGLYCEMIA SNOMED Code(s): 284301120132840 (3) Constipation Narrative/Plan: * Continue current bowel regimen of MiraLAX senna and lactulose * Gen. surgery consult pending Current Visit: Yes Status: Acute Code(s): K59.00 - CONSTIPATION, UNSPECIFIED SNOMED Code(s): 25668625 (4) Essential hypertension Narrative/Plan: * Blood pressure elevated we'll titrate up Norvasc 10 mg by mouth daily Current Visit: Yes Status: Chronic Code(s): I10 - ESSENTIAL (PRIMARY) HYPERTENSION SNOMED Code(s): 15707840 (5) Neurogenic bladder Current Visit: Yes Status: Acute Code(s): N31.9 - NEUROMUSCULAR DYSFUNCTION OF BLADDER, UNSPECIFIED SNOMED Code(s): 381512437 Plan: Anticipated discharge in 1-2 days Await feedback from consulting providers Patient would like to be evaluated for Mediport or PICC line upon discharge to help with blood draws and IV meds that are sometimes done by her visiting physician
[2018-04-11 11:19] LABS: Glucose,Whole Blood 335 mg/dL (75-99)
[2018-04-11] MEDS: FERROUS SULFATE 325 MG TAB PO SCH (11:21)
[2018-04-11] MEDS: SENNOSIDES 8.6 MG TAB PO SCH ×2 (11:21→20:24)
[2018-04-11] MEDS: ASCORBIC ACID 500 MG TAB PO SCH (11:22)
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
[2018-04-11] MEDS: LEVOFLOXACIN 500MG-D5W PMX 500 MG in DEXTROSE/WATER 1 100ML.BAG IVPB SCH (14:24)
[2018-04-11 17:13] LABS: Glucose,Whole Blood 294 mg/dL (75-99)
[2018-04-11] MEDS: ACETAMINOPHEN TAB 325 MG TAB PO PRN (17:17)
[2018-04-11 17:18] LABS: Hemoglobin A1C 6.8 % (4.0-6.0)
[2018-04-11] MEDS ORDERED: MAGNESIUM CITRATE 296 ML BOTTLE PO ONE (19:35)
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
[2018-04-11] MEDS: PANTOPRAZOLE 40 MG TABLET PO SCH (20:22)
[2018-04-11] MEDS: MONTELUKAST 10 MG TAB PO SCH (20:22)
[2018-04-11] MEDS: ASPIRIN 81 MG PO SCH (20:22)
[2018-04-11] MEDS: INSULIN DETEMIR 100 UNIT/ML 10 ML VIAL SQ SCH (20:22)
[2018-04-11] MEDS: GABAPENTIN 300 MG CAP PO SCH (20:23)
[2018-04-11] MEDS: PRAVASTATIN SODIUM 20 MG TAB PO SCH (20:23)
[2018-04-11 20:57] LABS: Glucose,Whole Blood 259 mg/dL (75-99)
[2018-04-11] MEDS ORDERED: INSULIN DETEMIR 100 UNIT/ML 10 ML VIAL SQ SCH (21:00)
[2018-04-12] MEDS: IPRATROPIUM-ALBUTEROL 3 ML NEB INHALATION SCH ×7 (01:11→23:54)
[2018-04-12] MEDS: methylPREDNISolone SOD SUCCI 125 MG/2 ML VIAL IV SCH ×4 (05:48→23:51)
[2018-04-12 06:58] LABS: Glucose,Whole Blood 314 mg/dL (75-99)
[2018-04-12] MEDS: INSULIN ASPART 100 UNIT/ML 1 ML 10 ML VIAL SQ SCH ×4 (08:04→21:26)
[2018-04-12] MEDS: BACLOFEN 10 MG TAB PO SCH ×2 (08:05→21:26)
[2018-04-12] MEDS: amLODIPine 10 MG TAB PO SCH (08:05)
[2018-04-12] MEDS: LORATADINE 10 MG TAB PO SCH (08:05)
[2018-04-12] MEDS: FUROSEMIDE 40 MG TAB PO SCH (08:05)
[2018-04-12] MEDS: HEPARIN SODIUM,PORCINE 5,000 UNIT/ML 1 ML VIAL SQ SCH ×3 (08:06→23:51)
[2018-04-12] MEDS: CITALOPRAM HYDROBROMIDE 10 MG TAB PO SCH (08:06)
[2018-04-12] MEDS: FERROUS SULFATE 325 MG TAB PO SCH ×2 (08:07→13:06)
[2018-04-12] MEDS: POLYETHYLENE GLYCOL 3350 17 GM POWD.PACK PO SCH ×2 (09:14→21:27)
[2018-04-12] MEDS ORDERED: MAGNESIUM CITRATE 296 ML BOTTLE PO ONE (09:25)
--- NOTE | 2018-04-12 09:26 | P.PN ---
Subjective Progress Note Date: 04/12/18 Principal diagnosis: Constipation Patient denies nausea vomiting. No abdominal pain. No bowel movement after mag citrate yesterday. Tolerating diet. Objective - Vital Signs Vital signs: Vital Signs Temp 97.9 F 04/12/18 05:00 Pulse 92 04/12/18 09:06 Resp 20 04/12/18 05:00 BP 144/75 04/12/18 05:00 Pulse Ox 94 L 04/12/18 05:00 Intake & Output 04/11/18 04/12/18 04/12/18 18:59 06:59 18:59 Intake Total 160 560 Output Total 425 500 Balance -265 60 Weight 145 kg Intake: IV 160 80 Sodium Chloride 0.9% 1, 160 80 000 ml @ 20 mls/hr IV . Q24H [facility] Rx#:[id number] Oral 480 Output: Urine 425 500 Other: Voiding Method Indwelling Catheter Indwelling Catheter # Bowel Movements 0 - Exam Abdomen: Soft, minimal distention, nontender - Labs CBC & Chem 7: 04/11/18 06:52 04/11/18 06:52 Labs: Abnormal Lab Results - Last 24 Hours (Table) 04/11/18 04/11/18 04/11/18 Range/Units 06:52 11:17 17:11 POC Glucose (mg/dL) 335 H 294 H (75-99) mg/dL Hemoglobin A1c 6.8 H (4.0-6.0) % 04/11/18 04/12/18 Range/Units 20:55 06:57 POC Glucose (mg/dL) 259 H 314 H (75-99) mg/dL Hemoglobin A1c (4.0-6.0) % Microbiology - Last 24 Hours (Table) 04/10/18 19:10 Blood Culture - Preliminary Blood No Growth after 24 hours Assessment and Plan (1) Constipation Narrative/Plan: Will give additional one bottle of magnesium citrate at this time. Check abdominal x-rays. Current Visit: Yes Status: Acute Code(s): K59.00 - CONSTIPATION, UNSPECIFIED SNOMED Code(s): 13162936
[2018-04-12 11:16] LABS: Glucose,Whole Blood 324 mg/dL (75-99)
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
[2018-04-12] MEDS: SENNOSIDES 8.6 MG TAB PO SCH ×2 (13:06→21:27)
[2018-04-12] MEDS: ERGOCALCIFEROL 50,000 UNIT CAP PO SCH (13:10)
[2018-04-12] MEDS: ASCORBIC ACID 500 MG TAB PO SCH (13:10)
[2018-04-12] MEDS: LEVOFLOXACIN 500MG-D5W PMX 500 MG in DEXTROSE/WATER 1 100ML.BAG IVPB SCH (13:15)
--- NOTE | 2018-04-12 13:21 | P.PN ---
Subjective Progress Note Date: 04/12/18 Patient so with no bowel movement after having 1 bottle of mag situate addition to her bowel regimen of MiraLAX and senna. General surgery Dr. Farr following repeat bottle of mag citrate today. Patient continues to be wheezy but does report that she feels slightly better than yesterday, not quite back to her baseline today. No acute events overnight patient afebrile Objective - Vital Signs Vital signs: Vital Signs Temp 98.8 F 04/12/18 11:50 Pulse 84 04/12/18 12:30 Resp 16 04/12/18 11:50 BP 154/66 04/12/18 11:50 Pulse Ox 94 L 04/12/18 11:50 Intake & Output 04/11/18 04/12/18 04/12/18 18:59 06:59 18:59 Intake Total 160 560 Output Total 425 500 Balance -265 60 Weight 145 kg Intake: IV 160 80 Sodium Chloride 0.9% 1, 160 80 000 ml @ 20 mls/hr IV . Q24H [facility] Rx#:[id number] Oral 480 Output: Urine 425 500 Other: Voiding Method Indwelling Catheter Indwelling Catheter Indwelling Catheter # Bowel Movements 0 - Exam Constitutional: No acute distress, conversant, pleasant Eyes: Anicteric sclerae, moist conjunctiva, no lid-lag, PERRLA ENMT: NC/AT,Oropharynx clear, no erythema, exudates Neck:Supple, FROM, no masses, or JVD, No carotid bruits; No thyromegaly Lungs: Expiratory wheezes diminished in the bases, Clear to percussion, Normal respiratory effort on 3 L nasal cannula, no accessory muscle use Cardiovascular: Heart regular in rate and rhythm, No murmurs, gallops, or rubs no peripheral edema Abdominal: Soft Nontender, mildly distended, no guarding, no rebound or rigidity, Normoactive bowel sounds No hepatomegaly, No splenomegaly, No palpable mass No abdominal wall hernia noted Skin: Normal temperature, tone, texture, turgor, No induration No subcutaneous nodules, No rash, lesions, No ulcers Extremities:No digital cyanosis No clubbing, Pedal pulses intact and symmetrical Radial pulses intact and symmetrical Normal gait and station, No calf tenderness Psychiatric: Alert and oriented to person, place and time, Appropriate affect Intact judgement Neuro: Muscles Strength 5/5 in all 4 extremities, Sensation to light touch grossly present throughout, Cranial nerves II-XII grossly intact. No focal sensory deficits - Labs CBC & Chem 7: 04/11/18 06:52 04/11/18 06:52 Labs: Abnormal Lab Results - Last 24 Hours (Table) 04/11/18 04/11/18 04/11/18 Range/Units 06:52 17:11 20:55 POC Glucose (mg/dL) 294 H 259 H (75-99) mg/dL Hemoglobin A1c 6.8 H (4.0-6.0) % 04/12/18 04/12/18 Range/Units 06:57 11:14 POC Glucose (mg/dL) 314 H 324 H (75-99) mg/dL Hemoglobin A1c (4.0-6.0) % Microbiology - Last 24 Hours (Table) 04/10/18 19:10 Blood Culture - Preliminary Blood No Growth after 24 hours Assessment and Plan (1) Acute exacerbation of chronic obstructive airways disease Narrative/Plan: * Chronic hypoxic and hypercarbic respiratory failure on home oxygen 3 L * Influenza negative, chest x-ray suggesting cardiomegaly and interstitial changes, correlate for possible mild CHF Versus asthma bronchitis * Continue Systemic steroids, along with scheduled and when necessary bronchodilator DuoNeb breathing treatments, Perforomist and Symbicort added to regimen * Transitioned from Augmentin to IV Levaquin yesterday * Appreciate pulmonary recommendations Current Visit: Yes Status: Acute Code(s): J44.1 - CHRONIC OBSTRUCTIVE PULMONARY DISEASE W (ACUTE) EXACERBATION SNOMED Code(s): 778927562 (2) Type 2 diabetes mellitus with hyperglycemia Narrative/Plan: * Blood sugars elevated this morning at 348 compounded by ongoing steroid use to treat her COPD exacerbation * Increase basal insulin coverage to 20 units of Levemir daily at bedtime, initiate Accu-Cheks and correctional scale insulin coverage Current Visit: Yes Status: Acute Code(s): E11.65 - TYPE 2 DIABETES MELLITUS WITH HYPERGLYCEMIA SNOMED Code(s): 324554465891750 (3) Constipation Narrative/Plan: * Continue current bowel regimen of MiraLAX senna and lactulose * Gen. surgery consult pending Current Visit: Yes Status: Acute Code(s): K59.00 - CONSTIPATION, UNSPECIFIED SNOMED Code(s): 80677699 (4) Essential hypertension Narrative/Plan: * Blood pressure elevated we'll titrate up Norvasc 10 mg by mouth daily Current Visit: Yes Status: Chronic Code(s): I10 - ESSENTIAL (PRIMARY) HYPERTENSION SNOMED Code(s): 42556093 (5) Neurogenic bladder Current Visit: Yes Status: Acute Code(s): N31.9 - NEUROMUSCULAR DYSFUNCTION OF BLADDER, UNSPECIFIED SNOMED Code(s): 570401623 Plan: Anticipated discharge in 1-2 days Await feedback from consulting providers Patient would like to be evaluated for Mediport or PICC line upon discharge to help with blood draws and IV meds that are sometimes done by her visiting physician. Likely currently on a candidate as patient is having an acute COPD flare at this time
--- NOTE | 2018-04-12 14:48 | XR ---
"Abdomen 2 view HISTORY: Constipation 2 views of the abdomen submitted on 4 images. Correlation to prior exam 11/18/2010 Dilated loops of colon are present. Postop changes in the spine are stable. There is some retained fe alvin debris present in the descending colon. No evident pneumoperitoneum. Lung bases are clear. IMPRESSION: Correlate to exclude bowel obstruction, fecal stasis. A [place] level critical message alert has been initiated for Kiet Alarcon MD~[id number] via the [employer] | Critical Results System on 04/12/2018 2:42 PM. This message alert has been sent to Kiet Alarcon MD~[id number] via the preferences provided by the clinician for the receipt of Radiology Critical Findings. Message ID [id number]."
--- NOTE | 2018-04-12 16:44 | FL ---
EXAMINATION TYPE: FL barium enema DATE OF EXAM: 04/12/2018 COMPARISON: Abdominal x-ray earlier today. HISTORY: Constipation, abnormal x-ray. TECHNIQUE: A single contrast enema study is performed utilizing diluted Isovue 370. 19 spot images a re saved during procedure. A total of 2 minute 18 seconds of fluoroscopic time was utilized during pr ocedure. FINDINGS: Exam noted suboptimal due to patient's large body habitus and limited mobility. In addition there is no prep for the study. Case discussed with surgeon prior to procedure. Requested to instill contrast up to level of left colon to exclude obstructing mass or stricture at this level. There is successful retrograde filling of colon through the splenic flexure. Dilated colon is noted throughout pelvis. At this point exam is terminated. IMPRESSION: No large distal obstructing neoplasm or stricture. Consider Olgilve's syndrome as there is diffuse colonic dilatation present.
[2018-04-12 16:59] LABS: Glucose,Whole Blood 269 mg/dL (75-99)
[2018-04-12 20:11] LABS: Glucose,Whole Blood 459 mg/dL (75-99)
[2018-04-12] MEDS: FORMOTEROL FUMARATE 20 MCG/2 ML NEBU INHALATION SCH (20:40)
[2018-04-12] MEDS: BUDESONIDE 1 MG/2 ML NEBU INHALATION SCH (20:40)
[2018-04-12] MEDS ORDERED: INSULIN ASPART 100 UNIT/ML 1 ML 10 ML VIAL SQ ONE (21:12)
[2018-04-12] MEDS: INSULIN DETEMIR 100 UNIT/ML 10 ML VIAL SQ SCH (21:24)
[2018-04-12] MEDS: ASPIRIN 81 MG PO SCH (21:26)
[2018-04-12] MEDS: PRAVASTATIN SODIUM 20 MG TAB PO SCH (21:26)
[2018-04-12] MEDS: MELATONIN 3 MG TABLET PO PRN (21:26)
[2018-04-12] MEDS: GABAPENTIN 300 MG CAP PO SCH (21:26)
[2018-04-12] MEDS: MONTELUKAST 10 MG TAB PO SCH (21:26)
[2018-04-12] MEDS: PANTOPRAZOLE 40 MG TABLET PO SCH (21:27)
[2018-04-12 23:19] LABS: Glucose,Whole Blood 372 mg/dL (75-99)
[2018-04-13 00:19] LABS: Glucose,Whole Blood 304 mg/dL (75-99)
[2018-04-13 02:43] LABS: Glucose,Whole Blood 328 mg/dL (75-99)
[2018-04-13] MEDS: INSULIN ASPART 100 UNIT/ML 1 ML 10 ML VIAL SQ SCH ×5 (03:57→21:04)
[2018-04-13] MEDS: IPRATROPIUM-ALBUTEROL 3 ML NEB INHALATION SCH ×6 (04:06→23:49)
[2018-04-13] MEDS: SODIUM CHLORIDE 0.9% 1,000 ML IV SCH (04:36)
[2018-04-13] MEDS: methylPREDNISolone SOD SUCCI 125 MG/2 ML VIAL IV SCH ×4 (06:05→21:07)
[2018-04-13] MEDS: FORMOTEROL FUMARATE 20 MCG/2 ML NEBU INHALATION SCH ×2 (07:18→20:05)
[2018-04-13] MEDS: BUDESONIDE 1 MG/2 ML NEBU INHALATION SCH ×2 (07:18→20:05)
[2018-04-13 07:20] LABS: Glucose,Whole Blood 303 mg/dL (75-99)
[2018-04-13] MEDS: FUROSEMIDE 40 MG TAB PO SCH (08:51)
[2018-04-13] MEDS: BACLOFEN 10 MG TAB PO SCH ×2 (08:51→21:03)
[2018-04-13] MEDS: LORATADINE 10 MG TAB PO SCH (08:51)
[2018-04-13] MEDS: HEPARIN SODIUM,PORCINE 5,000 UNIT/ML 1 ML VIAL SQ SCH ×3 (08:51→21:07)
[2018-04-13] MEDS: amLODIPine 10 MG TAB PO SCH (08:51)
[2018-04-13] MEDS: POLYETHYLENE GLYCOL 3350 17 GM POWD.PACK PO SCH ×2 (08:52→21:04)
[2018-04-13] MEDS: CITALOPRAM HYDROBROMIDE 10 MG TAB PO SCH (08:52)
[2018-04-13 11:40] LABS: Glucose,Whole Blood 349 mg/dL (75-99)
[2018-04-13] MEDS: SENNOSIDES 8.6 MG TAB PO SCH ×2 (12:24→21:03)
[2018-04-13] MEDS: ASCORBIC ACID 500 MG TAB PO SCH (12:25)
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
--- NOTE | 2018-04-13 13:35 | P.PN ---
Subjective Progress Note Date: 04/13/18 Patient reports feeling worse today reports her chest is more congested and more tight, denies any subjective fevers chills or night sweats, having acceptable sats on 2 L nasal cannula Objective - Vital Signs Vital signs: Vital Signs Temp 98.4 F 04/13/18 12:09 Pulse 72 04/13/18 12:09 Resp 20 04/13/18 12:09 BP 145/64 04/13/18 12:09 Pulse Ox 92 L 04/13/18 12:09 Intake & Output 04/12/18 04/13/18 04/13/18 18:59 06:59 18:59 Intake Total 240 1920 Output Total 700 800 301 Balance -460 1120 -301 Intake: IV 160 Sodium Chloride 0.9% 1, 160 000 ml @ 20 mls/hr IV . Q24H [facility] Rx#:[id number] Intake, IV Titration 160 Amount Sodium Chloride 0.9% 1, 160 000 ml @ 20 mls/hr IV . Q24H [facility] Rx#:[id number] Oral 240 1600 Output: Urine 700 800 300 Uretheral (Stallings) 800 300 Stool 1 Other: Voiding Method Indwelling Catheter Indwelling Catheter Indwelling Catheter # Bowel Movements 1 - Exam Constitutional: No acute distress, conversant, pleasant Eyes: Anicteric sclerae, moist conjunctiva, no lid-lag, PERRLA ENMT: NC/AT,Oropharynx clear, no erythema, exudates Neck:Supple, FROM, no masses, or JVD, No carotid bruits; No thyromegaly Lungs: Expiratory wheezes diminished in the bases, Clear to percussion, Normal respiratory effort on 3 L nasal cannula, no accessory muscle use Cardiovascular: Heart regular in rate and rhythm, No murmurs, gallops, or rubs no peripheral edema Abdominal: Soft Nontender, mildly distended, no guarding, no rebound or rigidity, Normoactive bowel sounds No hepatomegaly, No splenomegaly, No palpable mass No abdominal wall hernia noted Skin: Normal temperature, tone, texture, turgor, No induration No subcutaneous nodules, No rash, lesions, No ulcers Extremities:No digital cyanosis No clubbing, Pedal pulses intact and symmetrical Radial pulses intact and symmetrical Normal gait and station, No calf tenderness Psychiatric: Alert and oriented to person, place and time, Appropriate affect Intact judgement Neuro: Muscles Strength 5/5 in all 4 extremities, Sensation to light touch grossly present throughout, Cranial nerves II-XII grossly intact. No focal sensory deficits - Labs CBC & Chem 7: 04/11/18 06:52 04/11/18 06:52 Labs: Abnormal Lab Results - Last 24 Hours (Table) 04/12/18 04/12/18 04/12/18 Range/Units 16:57 20:03 22:58 POC Glucose (mg/dL) 269 H 459 H 372 H (75-99) mg/dL 04/12/18 04/13/18 04/13/18 Range/Units 23:59 02:42 07:14 POC Glucose (mg/dL) 304 H 328 H 303 H (75-99) mg/dL 04/13/18 Range/Units 11:27 POC Glucose (mg/dL) 349 H (75-99) mg/dL Microbiology - Last 24 Hours (Table) 04/10/18 19:10 Blood Culture - Preliminary Blood No Growth after 48 hours Assessment and Plan (1) Acute exacerbation of chronic obstructive airways disease Narrative/Plan: * Chronic hypoxic and hypercarbic respiratory failure on home oxygen 3 L triggered by Acute tracheobronchitis * Influenza negative, chest x-ray suggesting cardiomegaly and interstitial changes, correlate for possible mild CHF Versus asthma bronchitis * Continue Systemic steroids, along with scheduled and when necessary bronchodilator DuoNeb breathing treatments, Perforomist and Symbicort added to regimen * Transitioned from Augmentin to IV Levaquin yesterday * Appreciate pulmonary recommendations Current Visit: Yes Status: Acute Code(s): J44.1 - CHRONIC OBSTRUCTIVE PULMONARY DISEASE W (ACUTE) EXACERBATION SNOMED Code(s): 037110847 (2) Type 2 diabetes mellitus with hyperglycemia Narrative/Plan: * Blood sugars elevated this morning at 348 compounded by ongoing steroid use to treat her COPD exacerbation * Increase basal insulin coverage to 30 units of Levemir daily at bedtime, initiate Accu-Cheks and correctional scale insulin coverage * A1c is 6.8 Current Visit: Yes Status: Acute Code(s): E11.65 - TYPE 2 DIABETES MELLITUS WITH HYPERGLYCEMIA SNOMED Code(s): 755601030345762 (3) Constipation Narrative/Plan: * Continue current bowel regimen of MiraLAX senna and lactulose * Gen. surgery consult pending Current Visit: Yes Status: Acute Code(s): K59.00 - CONSTIPATION, UNSPECIFIED SNOMED Code(s): 24863114 (4) Essential hypertension Narrative/Plan: * Blood pressure elevated we'll titrate up Norvasc 10 mg by mouth daily Current Visit: Yes Status: Chronic Code(s): I10 - ESSENTIAL (PRIMARY) HYPERTENSION SNOMED Code(s): 41935368 (5) Neurogenic bladder Current Visit: Yes Status: Acute Code(s): N31.9 - NEUROMUSCULAR DYSFUNCTION OF BLADDER, UNSPECIFIED SNOMED Code(s): 221607418 Plan: Anticipated discharge in 1-2 days Await feedback from consulting providers Patient would like to be evaluated for Mediport or PICC line upon discharge to help with blood draws and IV meds that are sometimes done by her visiting physician. Likely currently on a candidate as patient is having an acute COPD flare at this time
[2018-04-13] MEDS: LEVOFLOXACIN 500MG-D5W PMX 500 MG in DEXTROSE/WATER 1 100ML.BAG IVPB SCH (14:25)
[2018-04-13 17:06] LABS: Glucose,Whole Blood 364 mg/dL (75-99)
[2018-04-13] MEDS: NEOMYCIN-BACITRACIN-POLY OINT 14 GM TUBE TOPICAL SCH (17:44)
--- NOTE | 2018-04-13 17:56 | P.PN ---
Subjective Progress Note Date: 04/13/18 HPI: The patient is a 67-year-old female with history of constipation. She had a small bowel movement today. She is now enjoying a salad and a regular diet PHYSICAL EXAM: VITAL SIGNS: Reviewed GENERAL: Well developed and in no acute distress. Pleasant. HEENT: No sclera icterus. Extraocular movements grossly intact. Moist buccal mucosa. Head is atraumatic, normocephalic. Hears conversational speech. No nasal drainage. NECK: Supple without lymphadenopathy. No JV distention. CHEST: Non-labored respirations and equal bilateral excursions. CARDIOVASCULAR: Regular rate and rhythm. Palpable 2+ radial pulses. ABDOMEN: Obese, soft, nontender. Nondistended. MUSCULOSKELETAL: No clubbing, cyanosis NEUROLOGIC: No focal or lateralizing signs. Cranial nerves II-12 grossly intact PSYCH: Appropriate affect. Alert and oriented to person, place and time. SKIN: Good skin turgor. Well perfused. ASSESSMENT: 1. Chronic constipation 2. Super morbid obesity, BMI 55.0 PLAN: 1. Diet as tolerated 2. Continue bowel regimen Objective - Vital Signs Vital signs: Vital Signs Temp 98.4 F 04/13/18 12:09 Pulse 80 04/13/18 16:02 Resp 18 04/13/18 15:49 BP 145/64 04/13/18 12:09 Pulse Ox 97 04/13/18 15:49 Intake & Output 04/12/18 04/13/18 04/13/18 18:59 06:59 18:59 Intake Total 240 1920 Output Total 960 772 0071 Balance -460 1120 -1401 Intake: IV 160 Sodium Chloride 0.9% 1, 160 000 ml @ 20 mls/hr IV . Q24H [facility] Rx#:[id number] Intake, IV Titration 160 Amount Sodium Chloride 0.9% 1, 160 000 ml @ 20 mls/hr IV . Q24H [facility] Rx#:[id number] Oral 240 1600 Output: Urine 483 190 6943 Uretheral (Stallings) 800 300 Stool 1 Other: Voiding Method Indwelling Catheter Indwelling Catheter Indwelling Catheter # Bowel Movements 1 - Labs CBC & Chem 7: 04/11/18 06:52 04/11/18 06:52 Labs: Abnormal Lab Results - Last 24 Hours (Table) 04/12/18 04/12/18 04/12/18 Range/Units 20:03 22:58 23:59 POC Glucose (mg/dL) 459 H 372 H 304 H (75-99) mg/dL 04/13/18 04/13/18 04/13/18 Range/Units 02:42 07:14 11:27 POC Glucose (mg/dL) 328 H 303 H 349 H (75-99) mg/dL 04/13/18 Range/Units 17:04 POC Glucose (mg/dL) 364 H (75-99) mg/dL Microbiology - Last 24 Hours (Table) 04/10/18 19:10 Blood Culture - Preliminary Blood No Growth after 48 hours Assessment and Plan (1) Morbid (severe) obesity due to excess calories Current Visit: Yes Status: Acute Code(s): E66.01 - MORBID (SEVERE) OBESITY DUE TO EXCESS CALORIES SNOMED Code(s): 225834312 (2) Body mass index (BMI) 50-59.9, adult Current Visit: Yes Status: Acute Code(s): Z68.43 - BODY MASS INDEX (BMI) 50- 59.9, ADULT SNOMED Code(s): 250375557 (3) Constipation Current Visit: Yes Status: Acute Code(s): K59.00 - CONSTIPATION, UNSPECIFIED SNOMED Code(s): 05329446 (4) Neurogenic bladder Current Visit: Yes Status: Acute Code(s): N31.9 - NEUROMUSCULAR DYSFUNCTION OF BLADDER, UNSPECIFIED SNOMED Code(s): 661398280 (5) Type 2 diabetes mellitus with hyperglycemia Current Visit: Yes Status: Acute Code(s): E11.65 - TYPE 2 DIABETES MELLITUS WITH HYPERGLYCEMIA SNOMED Code(s): 968157117350141
[2018-04-13 20:56] LABS: Glucose,Whole Blood 362 mg/dL (75-99)
[2018-04-13] MEDS: GABAPENTIN 300 MG CAP PO SCH (21:03)
[2018-04-13] MEDS: PANTOPRAZOLE 40 MG TABLET PO SCH (21:03)
[2018-04-13] MEDS: INSULIN DETEMIR 100 UNIT/ML 10 ML VIAL SQ SCH (21:04)
[2018-04-13] MEDS: MONTELUKAST 10 MG TAB PO SCH (21:04)
[2018-04-13] MEDS: ASPIRIN 81 MG PO SCH (21:04)
[2018-04-13] MEDS: PRAVASTATIN SODIUM 20 MG TAB PO SCH (23:01)
[2018-04-14] MEDS: IPRATROPIUM-ALBUTEROL 3 ML NEB INHALATION SCH ×5 (03:58→20:17)
[2018-04-14] MEDS: methylPREDNISolone SOD SUCCI 125 MG/2 ML VIAL IV SCH ×3 (05:36→17:34)
[2018-04-14 07:17] LABS: Glucose,Whole Blood 343 mg/dL (75-99)
[2018-04-14] MEDS: INSULIN ASPART 100 UNIT/ML 1 ML 10 ML VIAL SQ SCH ×4 (07:51→21:01)
[2018-04-14] MEDS: SODIUM CHLORIDE 0.9% 1,000 ML IV SCH ×2 (07:51→22:11)
[2018-04-14] MEDS: BACLOFEN 10 MG TAB PO SCH ×2 (07:52→21:01)
[2018-04-14] MEDS: LORATADINE 10 MG TAB PO SCH (07:52)
[2018-04-14] MEDS: FUROSEMIDE 40 MG TAB PO SCH (07:52)
[2018-04-14] MEDS: amLODIPine 10 MG TAB PO SCH (07:52)
[2018-04-14] MEDS: HEPARIN SODIUM,PORCINE 5,000 UNIT/ML 1 ML VIAL SQ SCH ×2 (07:52→17:34)
[2018-04-14] MEDS: CITALOPRAM HYDROBROMIDE 10 MG TAB PO SCH (07:52)
[2018-04-14] MEDS: POLYETHYLENE GLYCOL 3350 17 GM POWD.PACK PO SCH ×2 (07:53→21:01)
[2018-04-14] MEDS: BUDESONIDE 1 MG/2 ML NEBU INHALATION SCH ×2 (08:24→20:17)
[2018-04-14] MEDS: FORMOTEROL FUMARATE 20 MCG/2 ML NEBU INHALATION SCH ×2 (08:24→20:17)
[2018-04-14 11:41] LABS: Glucose,Whole Blood 285 mg/dL (75-99)
[2018-04-14] MEDS: ASCORBIC ACID 500 MG TAB PO SCH (11:42)
[2018-04-14] MEDS: FERROUS SULFATE 325 MG TAB PO SCH (11:42)
[2018-04-14] MEDS: SENNOSIDES 8.6 MG TAB PO SCH ×2 (11:43→21:00)
--- NOTE | 2018-04-14 14:14 | P.PN ---
Subjective Progress Note Date: 04/14/18 HPI: The patient is a 67-year-old female with history of constipation. She had a large bowel movement today. "I went multiple times today." "I feel so much better and can breath." No reports of abdominal pain. PHYSICAL EXAM: VITAL SIGNS: Reviewed GENERAL: Well developed and in no acute distress. Pleasant. HEENT: No sclera icterus. Extraocular movements grossly intact. Moist buccal mucosa. Head is atraumatic, normocephalic. Hears conversational speech. No nasal drainage. NECK: Supple without lymphadenopathy. No JV distention. CHEST: Non-labored respirations and equal bilateral excursions. CARDIOVASCULAR: Regular rate and rhythm. Palpable 2+ radial pulses. ABDOMEN: Obese, soft, nontender. Nondistended. MUSCULOSKELETAL: No clubbing, cyanosis NEUROLOGIC: No focal or lateralizing signs. Cranial nerves II-12 grossly intact PSYCH: Appropriate affect. Alert and oriented to person, place and time. SKIN: Good skin turgor. Well perfused. ASSESSMENT: 1. Chronic constipation 2. Super morbid obesity, BMI 55.0 PLAN: 1. For discharge home, may also benefit from Colace daily with current regimen. 2. No surgical intervention. 3. Will sign off. Please reconsult if needed Objective - Vital Signs Vital signs: Vital Signs Temp 97.2 F L 04/14/18 12:07 Pulse 65 04/14/18 12:07 Resp 20 04/14/18 12:07 BP 137/67 04/14/18 12:07 Pulse Ox 98 04/14/18 12:07 Intake & Output 04/13/18 04/14/18 04/14/18 18:59 06:59 18:59 Intake Total 60 Output Total 2805 1002 Balance -2807 -942 Weight 145 kg Intake: IV 60 Sodium Chloride 0.9% 1, 60 000 ml @ 20 mls/hr IV . Q24H [facility] Rx#:[id number] Output: Urine 2800 1000 Uretheral (Stallings) 600 Stool 5 2 Other: Voiding Method Indwelling Catheter Indwelling Catheter Indwelling Catheter - Labs CBC & Chem 7: 04/11/18 06:52 04/11/18 06:52 Labs: Abnormal Lab Results - Last 24 Hours (Table) 04/13/18 04/13/18 04/14/18 Range/Units 17:04 20:48 07:15 POC Glucose (mg/dL) 364 H 362 H 343 H (75-99) mg/dL 04/14/18 Range/Units 11:39 POC Glucose (mg/dL) 285 H (75-99) mg/dL Microbiology - Last 24 Hours (Table) 04/10/18 19:10 Blood Culture - Preliminary Blood No Growth after 72 hours Assessment and Plan (1) Morbid (severe) obesity due to excess calories Current Visit: Yes Status: Acute Code(s): E66.01 - MORBID (SEVERE) OBESITY DUE TO EXCESS CALORIES SNOMED Code(s): 633388754 (2) Body mass index (BMI) 50-59.9, adult Current Visit: Yes Status: Acute Code(s): Z68.43 - BODY MASS INDEX (BMI) 50- 59.9, ADULT SNOMED Code(s): 975911534 (3) Constipation Current Visit: Yes Status: Acute Code(s): K59.00 - CONSTIPATION, UNSPECIFIED SNOMED Code(s): 47346953 (4) Neurogenic bladder Current Visit: Yes Status: Acute Code(s): N31.9 - NEUROMUSCULAR DYSFUNCTION OF BLADDER, UNSPECIFIED SNOMED Code(s): 019916352 (5) Type 2 diabetes mellitus with hyperglycemia Current Visit: Yes Status: Acute Code(s): E11.65 - TYPE 2 DIABETES MELLITUS WITH HYPERGLYCEMIA SNOMED Code(s): 977035810353660
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
--- NOTE | 2018-04-14 14:24 | P.PN ---
Subjective Progress Note Date: 04/14/18 Patient reports feeling slightly better today reports that her chest tightness is slowly breaking up, unable to cough up any sputum. Still wheezing. Patient reported bowel movement yesterday and one today Otherwise no acute events overnight Objective - Vital Signs Vital signs: Vital Signs Temp 97.2 F L 04/14/18 12:07 Pulse 65 04/14/18 12:07 Resp 20 04/14/18 12:07 BP 137/67 04/14/18 12:07 Pulse Ox 98 04/14/18 12:07 Intake & Output 04/13/18 04/14/18 04/14/18 18:59 06:59 18:59 Intake Total 60 Output Total 2805 1002 Balance -4753 -870 Weight 145 kg Intake: IV 60 Sodium Chloride 0.9% 1, 60 000 ml @ 20 mls/hr IV . Q24H [facility] Rx#:[id number] Output: Urine 2800 1000 Uretheral (Stallings) 600 Stool 5 2 Other: Voiding Method Indwelling Catheter Indwelling Catheter Indwelling Catheter - Exam Constitutional: No acute distress, conversant, pleasant Eyes: Anicteric sclerae, moist conjunctiva, no lid-lag, PERRLA ENMT: NC/AT,Oropharynx clear, no erythema, exudates Neck:Supple, FROM, no masses, or JVD, No carotid bruits; No thyromegaly Lungs: Expiratory wheezes diminished in the bases, Clear to percussion, Normal respiratory effort on 3 L nasal cannula, no accessory muscle use Cardiovascular: Heart regular in rate and rhythm, No murmurs, gallops, or rubs no peripheral edema Abdominal: Soft Nontender, mildly distended, no guarding, no rebound or rigidity, Normoactive bowel sounds No hepatomegaly, No splenomegaly, No palpable mass No abdominal wall hernia noted Skin: Normal temperature, tone, texture, turgor, No induration No subcutaneous nodules, No rash, lesions, No ulcers Extremities:No digital cyanosis No clubbing, Pedal pulses intact and symmetrical Radial pulses intact and symmetrical Normal gait and station, No calf tenderness Psychiatric: Alert and oriented to person, place and time, Appropriate affect Intact judgement Neuro: Muscles Strength 5/5 in all 4 extremities, Sensation to light touch grossly present throughout, Cranial nerves II-XII grossly intact. No focal sensory deficits - Labs CBC & Chem 7: 04/11/18 06:52 04/11/18 06:52 Labs: Abnormal Lab Results - Last 24 Hours (Table) 04/13/18 04/13/18 04/14/18 Range/Units 17:04 20:48 07:15 POC Glucose (mg/dL) 364 H 362 H 343 H (75-99) mg/dL 04/14/18 Range/Units 11:39 POC Glucose (mg/dL) 285 H (75-99) mg/dL Microbiology - Last 24 Hours (Table) 04/10/18 19:10 Blood Culture - Preliminary Blood No Growth after 72 hours Assessment and Plan (1) Acute exacerbation of chronic obstructive airways disease Narrative/Plan: * Chronic hypoxic and hypercarbic respiratory failure on home oxygen 3 L triggered by Acute tracheobronchitis * Influenza negative, chest x-ray suggesting cardiomegaly and interstitial changes, correlate for possible mild CHF Versus asthma bronchitis * Continue Systemic steroids, along with scheduled and when necessary bronchodilator DuoNeb breathing treatments, Perforomist and Symbicort added to regimen * Transitioned from Augmentin to IV Levaquin yesterday * Appreciate pulmonary recommendations Current Visit: Yes Status: Acute Code(s): J44.1 - CHRONIC OBSTRUCTIVE PULMONARY DISEASE W (ACUTE) EXACERBATION SNOMED Code(s): 016629340 (2) Type 2 diabetes mellitus with hyperglycemia Narrative/Plan: * Blood sugars elevated this morning at 348 compounded by ongoing steroid use to treat her COPD exacerbation * Increase basal insulin coverage to 30 units of Levemir daily at bedtime, initiate Accu-Cheks and correctional scale insulin coverage * A1c is 6.8 Current Visit: Yes Status: Acute Code(s): E11.65 - TYPE 2 DIABETES MELLITUS WITH HYPERGLYCEMIA SNOMED Code(s): 092610094939402 (3) Constipation Narrative/Plan: * Continue current bowel regimen of MiraLAX senna and lactulose and milk of magnesia * Gen. surgery consult pending Current Visit: Yes Status: Chronic Code(s): K59.00 - CONSTIPATION, UNSPECIFIED SNOMED Code(s): 65480727 (4) Essential hypertension Current Visit: Yes Status: Chronic Code(s): I10 - ESSENTIAL (PRIMARY) HYPERTENSION SNOMED Code(s): 84225494 (5) Neurogenic bladder Current Visit: Yes Status: Acute Code(s): N31.9 - NEUROMUSCULAR DYSFUNCTION OF BLADDER, UNSPECIFIED SNOMED Code(s): 034920090 Plan: Anticipated discharge in 1-2 days Await feedback from consulting providers Patient would like to be evaluated for Mediport or PICC line upon discharge to help with blood draws and IV meds that are sometimes done by her visiting physician. Likely currently on a candidate as patient is having an acute COPD flare at this time
[2018-04-14] MEDS: LEVOFLOXACIN 500MG-D5W PMX 500 MG in DEXTROSE/WATER 1 100ML.BAG IVPB SCH (14:29)
[2018-04-14 17:15] LABS: Glucose,Whole Blood 363 mg/dL (75-99)
[2018-04-14 20:33] LABS: Glucose,Whole Blood 381 mg/dL (75-99)
[2018-04-14] MEDS: PANTOPRAZOLE 40 MG TABLET PO SCH (21:00)
[2018-04-14] MEDS: ASPIRIN 81 MG PO SCH (21:00)
[2018-04-14] MEDS: MONTELUKAST 10 MG TAB PO SCH (21:00)
[2018-04-14] MEDS: GABAPENTIN 300 MG CAP PO SCH (21:01)
[2018-04-14] MEDS: PRAVASTATIN SODIUM 20 MG TAB PO SCH (21:01)
[2018-04-14] MEDS: INSULIN DETEMIR 100 UNIT/ML 10 ML VIAL SQ SCH (21:56)
[2018-04-14] MEDS: ACETAMINOPHEN TAB 325 MG TAB PO PRN (21:57)
[2018-04-14] MEDS: NEOMYCIN-BACITRACIN-POLY OINT 14 GM TUBE TOPICAL SCH (21:57)
[2018-04-15] MEDS: methylPREDNISolone SOD SUCCI 125 MG/2 ML VIAL IV SCH ×5 (00:17→23:47)
[2018-04-15] MEDS: HEPARIN SODIUM,PORCINE 5,000 UNIT/ML 1 ML VIAL SQ SCH ×4 (00:17→23:48)
[2018-04-15 00:25] LABS: Glucose,Whole Blood 356 mg/dL (75-99)
[2018-04-15] MEDS: IPRATROPIUM-ALBUTEROL 3 ML NEB INHALATION SCH ×6 (00:35→19:24)
[2018-04-15 02:32] LABS: Glucose,Whole Blood 348 mg/dL (75-99)
[2018-04-15] MEDS: INSULIN ASPART 100 UNIT/ML 1 ML 10 ML VIAL SQ SCH ×5 (02:41→21:00)
[2018-04-15 07:04] LABS: Glucose,Whole Blood 302 mg/dL (75-99)
[2018-04-15] MEDS: CITALOPRAM HYDROBROMIDE 10 MG TAB PO SCH (08:07)
[2018-04-15] MEDS: LORATADINE 10 MG TAB PO SCH (08:07)
[2018-04-15] MEDS: POLYETHYLENE GLYCOL 3350 17 GM POWD.PACK PO SCH ×2 (08:07→20:58)
[2018-04-15] MEDS: FUROSEMIDE 40 MG TAB PO SCH ×2 (08:07→17:40)
[2018-04-15] MEDS: amLODIPine 10 MG TAB PO SCH (08:08)
[2018-04-15] MEDS: BACLOFEN 10 MG TAB PO SCH ×2 (08:08→20:58)
[2018-04-15] MEDS: BUDESONIDE 1 MG/2 ML NEBU INHALATION SCH ×2 (08:09→19:24)
[2018-04-15] MEDS: FORMOTEROL FUMARATE 20 MCG/2 ML NEBU INHALATION SCH ×2 (08:09→19:24)
[2018-04-15 11:17] LABS: Glucose,Whole Blood 373 mg/dL (75-99)
[2018-04-15 12:00] LABS: HGB 10.1 gm/dL (11.4-16.0); Hypochromasia Slight; MCH 28.8 pg (25.0-35.0); MCHC 30.7 g/dL (31.0-37.0); MCV 93.7 fL (80.0-100.0); Mean Platelet Volume 6.7; RBC 3.53 m/uL (3.80-5.40); RDW 14.3 % (11.5-15.5); WBC 6.8 k/uL (3.8-10.6)
[2018-04-15 12:04] LABS: Platelet Count 197 k/uL (150-450)
[2018-04-15 12:19] LABS: Calcium 9.1 mg/dL (8.4-10.2); Potassium 4.9 mmol/L (3.5-5.1)
[2018-04-15] MEDS: ASCORBIC ACID 500 MG TAB PO SCH (12:28)
[2018-04-15] MEDS: SENNOSIDES 8.6 MG TAB PO SCH ×2 (12:28→20:58)
[2018-04-15] MEDS: FERROUS SULFATE 325 MG TAB PO SCH (12:28)
--- NOTE | 2018-04-15 12:46 | P.PN ---
Subjective Patient's respiratory status is slowly improving. She feels that her dyspnea is better but still coughing and having difficulties to expectorate. Otherwise no nausea vomiting or any chest pain. She's been having several bowel movements yesterday and feeling somewhat relieved. REVIEW OF SYSTEMS: CONSTITUTIONAL: No fever or chills HEENT: No changes in vision or voice CARDIOVASCULAR: no chest pain or abnormal heart beats, or any swelling in ankles or feet. RESPIRATORY: As per HPI GASTROINTESTINAL: No abdominal pain, no nausea no vomiting no constipation or diarrhea GENITOURINARY: no any urinary urgency, frequency or burning, and there has been no blood in her urine. no flank pain. MUSCULOSKELETAL: She notes full range of motion of all her joints without pain or swelling. NEUROLOGICAL: , no headache. no vision changes, or fainting. No numbness or tingling. Objective - Vital Signs Vital signs: Vital Signs Temp 98.1 F 04/15/18 12:09 Pulse 92 04/15/18 12:12 Resp 22 04/15/18 12:09 BP 145/95 04/15/18 12:09 Pulse Ox 97 04/15/18 12:09 Intake & Output 04/14/18 04/15/18 04/15/18 18:59 06:59 18:59 Intake Total 260 880 Output Total 800 Balance 260 80 Intake: IV 160 180 Sodium Chloride 0.9% 1, 160 180 000 ml @ 20 mls/hr IV . Q24H [facility] Rx#:[id number] Intake, IV Titration 100 Amount Levofloxacin 500Mg-D5w 100 Pmx 500 mg In Dextrose/ Water 1 100ml.bag @ 100 mls/hr IVPB Q24H [facility] Rx#: [id number] Oral 700 Output: Urine 800 Uretheral (Stallings) 800 Other: Voiding Method Indwelling Catheter Indwelling Catheter Indwelling Catheter - Exam Vital Signs: I have reviewed the vital signs. GENERAL: Well-nourished, Well-developed , no apparent distress, cooperative Eyes: PERRL, extraoculry movements intact, clear conjunctiva Head: : Atraumatic external nose and ears, oropharyngeal mucosa is moist without lesions or exudates Neck: Symmetric, trachea midline, No thyromegaly, no masses or neck vain pulsation, no neck rigidity CVS: +S1/S2, No murmurs or gallops. Peripheral pulses 2+ and equal in all extremities. RESP: Unlabored respiratory effort. Diminished breath sounds with expiratory wheezes bilateral Abdomen: Bowel sounds present in all 4 quadrants, Soft to palpation, Nontender/ Nondistended, No hepatosplenomegaly, no hernias or masses, no CVA tnderness Musculoskeletal: Extremities w/o deformity, No cyanosis or clubbing, no joint swelling - Labs CBC & Chem 7: 04/15/18 11:44 04/15/18 11:44 Labs: Abnormal Lab Results - Last 24 Hours (Table) 04/14/18 04/14/18 04/15/18 Range/Units 17:13 20:31 00:24 RBC (3.80-5.40) m/uL Hgb (11.4-16.0) gm/dL Hct (34.0-46.0) % MCHC (31.0-37.0) g/dL Sodium (137-145) mmol/L Carbon Dioxide (22-30) mmol/L BUN (7-17) mg/dL Glucose (74-99) mg/dL POC Glucose (mg/dL) 363 H 381 H 356 H (75-99) mg/dL 04/15/18 04/15/18 04/15/18 Range/Units 02:30 07:03 11:15 RBC (3.80-5.40) m/uL Hgb (11.4-16.0) gm/dL Hct (34.0-46.0) % MCHC (31.0-37.0) g/dL Sodium (137-145) mmol/L Carbon Dioxide (22-30) mmol/L BUN (7-17) mg/dL Glucose (74-99) mg/dL POC Glucose (mg/dL) 348 H 302 H 373 H (75-99) mg/dL 04/15/18 04/15/18 Range/Units 11:44 11:44 RBC 3.53 L (3.80-5.40) m/uL Hgb 10.1 L (11.4-16.0) gm/dL Hct 33.0 L (34.0-46.0) % MCHC 30.7 L (31.0-37.0) g/dL Sodium 136 L (137-145) mmol/L Carbon Dioxide 33 H (22-30) mmol/L BUN 39 H (7-17) mg/dL Glucose 355 H (74-99) mg/dL POC Glucose (mg/dL) (75-99) mg/dL Microbiology - Last 24 Hours (Table) 04/10/18 19:10 Blood Culture - Preliminary Blood No Growth after 96 hours Assessment and Plan Assessment: 1. Acute exacerbation of chronic obstructive airways disease Continue systemic steroids and bronchodilators antibiotics Pulmonary service following Respiratory status continues to improve Humidify oxygen 2. Type 2 diabetes mellitus with stress hyperglycemia Her lemon Levemir was increased continue to evaluate her lung glucose and continue to adjust insulin 3. Constipation Patient has had several good sides bowel movements Continue stool softeners 4. Essential hypertension Blood pressure stable 6. Neurogenic bladder 7. Chronic debility 8. Chronic normocytic anemia Hemoglobin has been stable May consider checking iron studies Regarding her need for MediPort insertion for home effusions, patient had a recent infection and her port catheter removed. I will try to reach her PCP and discuss this further need for MediPort prior discharge.
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
--- NOTE | 2018-04-15 15:36 | XR ---
EXAMINATION TYPE: XR chest 1V portable DATE OF EXAM: 04/15/2018 Comparison: 06/12/2017 Clinical History: 67-year-old female shortness of breath Findings: ACDF hardware. Heart mild to moderately enlarged. Focal right basilar opacity just above the right he midiaphragm. Mild diffuse interstitial prominence is unchanged. No sizable effusion seen. Impression: Cardiomegaly. Limited due to underpenetration. There is some focal right basilar opacity that could r epresent atelectasis or infiltrate.
[2018-04-15 17:15] LABS: Glucose,Whole Blood 343 mg/dL (75-99)
[2018-04-15 20:24] LABS: Glucose,Whole Blood 438 mg/dL (75-99)
[2018-04-15] MEDS: MONTELUKAST 10 MG TAB PO SCH (20:58)
[2018-04-15] MEDS: PANTOPRAZOLE 40 MG TABLET PO SCH (20:59)
[2018-04-15] MEDS: NEOMYCIN-BACITRACIN-POLY OINT 14 GM TUBE TOPICAL SCH (20:59)
[2018-04-15] MEDS: PRAVASTATIN SODIUM 20 MG TAB PO SCH (20:59)
[2018-04-15] MEDS: GABAPENTIN 300 MG CAP PO SCH (20:59)
[2018-04-15] MEDS: MELATONIN 3 MG TABLET PO PRN (20:59)
[2018-04-15] MEDS: ASPIRIN 81 MG PO SCH (20:59)
[2018-04-15] MEDS: INSULIN DETEMIR 100 UNIT/ML 10 ML VIAL SQ SCH (21:00)
[2018-04-15] MEDS: ACETAMINOPHEN TAB 325 MG TAB PO PRN (22:22)
[2018-04-15] MEDS: SODIUM CHLORIDE 0.9% 1,000 ML IV SCH (23:43)
[2018-04-16] MEDS: IPRATROPIUM-ALBUTEROL 3 ML NEB INHALATION SCH ×7 (00:46→23:30)
[2018-04-16 01:57] LABS: Glucose,Whole Blood 337 mg/dL (75-99)
[2018-04-16] MEDS: INSULIN ASPART 100 UNIT/ML 1 ML 10 ML VIAL SQ SCH ×5 (02:15→21:31)
[2018-04-16] MEDS: methylPREDNISolone SOD SUCCI 125 MG/2 ML VIAL IV SCH ×2 (05:26→11:54)
[2018-04-16] MEDS: FORMOTEROL FUMARATE 20 MCG/2 ML NEBU INHALATION SCH ×2 (07:05→19:53)
[2018-04-16] MEDS: BUDESONIDE 1 MG/2 ML NEBU INHALATION SCH ×2 (07:05→19:53)
[2018-04-16 07:22] LABS: Glucose,Whole Blood 319 mg/dL (75-99)
[2018-04-16] MEDS: POLYETHYLENE GLYCOL 3350 17 GM POWD.PACK PO SCH ×2 (08:53→21:33)
[2018-04-16] MEDS: HEPARIN SODIUM,PORCINE 5,000 UNIT/ML 1 ML VIAL SQ SCH ×2 (08:54→15:12)
[2018-04-16] MEDS: amLODIPine 10 MG TAB PO SCH (08:55)
[2018-04-16] MEDS: FUROSEMIDE 40 MG TAB PO SCH ×2 (08:55→15:12)
[2018-04-16] MEDS: ASCORBIC ACID 500 MG TAB PO SCH (08:55)
[2018-04-16] MEDS: BACLOFEN 10 MG TAB PO SCH ×2 (08:55→21:30)
[2018-04-16] MEDS: CITALOPRAM HYDROBROMIDE 10 MG TAB PO SCH (08:55)
[2018-04-16] MEDS: LORATADINE 10 MG TAB PO SCH (08:56)
[2018-04-16 11:38] LABS: Glucose,Whole Blood 310 mg/dL (75-99)
[2018-04-16] MEDS: SENNOSIDES 8.6 MG TAB PO SCH ×2 (11:53→21:30)
[2018-04-16] MEDS: FERROUS SULFATE 325 MG TAB PO SCH (11:54)
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
[2018-04-16] MEDS: LEVOFLOXACIN 250 MG TAB PO SCH (13:21)
--- NOTE | 2018-04-16 15:26 | P.PN ---
Subjective Respratory status is improving. Still coughing and sensation of phlem in the throat. No fever or chest pain. REVIEW OF SYSTEMS: CONSTITUTIONAL: No fever or chills HEENT: No changes in vision or voice CARDIOVASCULAR: no chest pain or abnormal heart beats, or any swelling in ankles or feet. RESPIRATORY: As per HPI GASTROINTESTINAL: No abdominal pain, no nausea no vomiting no constipation or diarrhea GENITOURINARY: no any urinary urgency, frequency or burning, and there has been no blood in her urine. no flank pain. MUSCULOSKELETAL: She notes full range of motion of all her joints without pain or swelling. NEUROLOGICAL: , no headache. no vision changes, or fainting. No numbness or tingling. Objective - Vital Signs Vital signs: Vital Signs Temp 98.2 F 04/16/18 13:22 Pulse 88 04/16/18 15:18 Resp 16 04/16/18 15:18 BP 166/70 04/16/18 13:22 Pulse Ox 97 04/16/18 15:18 Intake & Output 04/15/18 04/16/18 04/16/18 18:59 06:59 18:59 Intake Total 1080 Output Total 2 Balance 1078 Intake: IV 240 Sodium Chloride 0.9% 1, 240 000 ml @ 20 mls/hr IV . Q24H [facility] Rx#:[id number] Oral 840 Output: Stool 2 Other: Voiding Method Indwelling Catheter Indwelling Catheter Indwelling Catheter - Exam Vital Signs: I have reviewed the vital signs. GENERAL: Well-nourished, Well-developed , no apparent distress, cooperative Eyes: PERRL, extraoculry movements intact, clear conjunctiva Head: : Atraumatic external nose and ears, oropharyngeal mucosa is moist without lesions or exudates Neck: Symmetric, trachea midline, No thyromegaly, no masses or neck vain pulsation, no neck rigidity CVS: +S1/S2, No murmurs or gallops. Peripheral pulses 2+ and equal in all extremities. RESP: Unlabored respiratory effort. Diminished breath sounds with expiratory wheezes bilateral Abdomen: Bowel sounds present in all 4 quadrants, Soft to palpation, Nontender/ Nondistended, No hepatosplenomegaly, no hernias or masses, no CVA tnderness Musculoskeletal: Extremities w/o deformity, No cyanosis or clubbing, no joint swelling - Labs CBC & Chem 7: 04/15/18 11:44 04/15/18 11:44 Labs: Abnormal Lab Results - Last 24 Hours (Table) 04/15/18 04/15/18 04/16/18 Range/Units 17:13 20:22 01:55 POC Glucose (mg/dL) 343 H 438 H 337 H (75-99) mg/dL 04/16/18 04/16/18 Range/Units 07:20 11:35 POC Glucose (mg/dL) 319 H 310 H (75-99) mg/dL Microbiology - Last 24 Hours (Table) 04/10/18 19:10 Blood Culture - Preliminary Blood No Growth after 120 hours Assessment and Plan Assessment: 1. Acute exacerbation of chronic obstructive airways disease Continue systemic steroids and bronchodilators antibiotics Diuretics Incentive spirometry ifpossible to have PT to move her to wheel chair (pt's pily) Pulmonary service following 2. Type 2 diabetes mellitus with stress hyperglycemia Increase LEvemir to 40 bid with AC coverage 3. Constipation Patient has had several good sides bowel movements Continue stool softeners 4. Essential hypertension Blood pressure stable 6. Neurogenic bladder 7. Chronic debility 8. Chronic normocytic anemia Hemoglobin has been stable May consider checking iron studies No mediport for now
[2018-04-16] MEDS: ACETAMINOPHEN TAB 325 MG TAB PO PRN ×2 (15:34→21:31)
[2018-04-16 17:32] LABS: Glucose,Whole Blood 241 mg/dL (75-99)
[2018-04-16] MEDS: methylPREDNISolone SOD SUCCI 40 MG/ML 1 ML VIAL IV SCH (18:06)
[2018-04-16 19:39] LABS: Glucose,Whole Blood 315 mg/dL (75-99)
[2018-04-16] MEDS: MONTELUKAST 10 MG TAB PO SCH (21:30)
[2018-04-16] MEDS: PANTOPRAZOLE 40 MG TABLET PO SCH (21:30)
[2018-04-16] MEDS: GABAPENTIN 300 MG CAP PO SCH (21:30)
[2018-04-16] MEDS: PRAVASTATIN SODIUM 20 MG TAB PO SCH (21:31)
[2018-04-16] MEDS: ASPIRIN 81 MG PO SCH (21:31)
[2018-04-16] MEDS: NEOMYCIN-BACITRACIN-POLY OINT 14 GM TUBE TOPICAL SCH (21:33)
[2018-04-16] MEDS: INSULIN DETEMIR 100 UNIT/ML 10 ML VIAL SQ SCH (22:27)
[2018-04-16] MEDS: SODIUM CHLORIDE 0.9% 1,000 ML IV SCH (22:27)
[2018-04-17] MEDS: HEPARIN SODIUM,PORCINE 5,000 UNIT/ML 1 ML VIAL SQ SCH ×4 (00:44→23:29)
[2018-04-17] MEDS: methylPREDNISolone SOD SUCCI 40 MG/ML 1 ML VIAL IV SCH ×5 (01:03→23:29)
[2018-04-17] MEDS: IPRATROPIUM-ALBUTEROL 3 ML NEB INHALATION SCH ×5 (03:47→19:53)
[2018-04-17] MEDS: ACETAMINOPHEN TAB 325 MG TAB PO PRN (06:29)
[2018-04-17 06:47] LABS: Glucose,Whole Blood 291 mg/dL (75-99)
[2018-04-17] MEDS: BUDESONIDE 1 MG/2 ML NEBU INHALATION SCH ×2 (07:06→19:53)
[2018-04-17] MEDS: FORMOTEROL FUMARATE 20 MCG/2 ML NEBU INHALATION SCH ×2 (07:06→19:53)
[2018-04-17] MEDS: INSULIN ASPART 100 UNIT/ML 1 ML 10 ML VIAL SQ SCH ×6 (07:46→20:56)
[2018-04-17] MEDS: POLYETHYLENE GLYCOL 3350 17 GM POWD.PACK PO SCH ×2 (07:46→20:54)
[2018-04-17] MEDS: LORATADINE 10 MG TAB PO SCH (07:48)
[2018-04-17] MEDS: SENNOSIDES 8.6 MG TAB PO SCH ×2 (07:48→20:54)
[2018-04-17] MEDS: CITALOPRAM HYDROBROMIDE 10 MG TAB PO SCH (07:48)
[2018-04-17] MEDS: amLODIPine 10 MG TAB PO SCH (07:49)
[2018-04-17] MEDS: FUROSEMIDE 40 MG TAB PO SCH ×2 (07:50→16:53)
[2018-04-17] MEDS: BACLOFEN 10 MG TAB PO SCH ×2 (07:50→20:55)
--- NOTE | 2018-04-17 08:47 | XR ---
EXAMINATION TYPE: XR chest 1V portable DATE OF EXAM: 04/17/2018 COMPARISON: 04/15/2018 HISTORY: Cough TECHNIQUE: Single frontal view of the chest is obtained. FINDINGS: Postsurgical change overlying the cervical spine the heart is enlarged. Subsegmental conso lidation lung bases. Small bilateral pleural effusions. No pneumothorax. No overt failure. A pleural- based thickening noted bilaterally IMPRESSION: Bilateral consolidation and small effusions.
[2018-04-17 11:25] LABS: Glucose,Whole Blood 373 mg/dL (75-99)
--- NOTE | 2018-04-17 11:42 | P.PN ---
Subjective Respratory status is improving, Still coughing and now started bringing some . She is concerned that her urine is getting cloudy. She does not have any burning or frequency No fever or chest pain. Rest x-ray shows some basilar possible infiltrates REVIEW OF SYSTEMS: CONSTITUTIONAL: No fever or chills HEENT: No changes in vision or voice CARDIOVASCULAR: no chest pain or abnormal heart beats, or any swelling in ankles or feet. RESPIRATORY: As per HPI GASTROINTESTINAL: No abdominal pain, no nausea no vomiting no constipation or diarrhea GENITOURINARY: no any urinary urgency, frequency or burning, and there has been no blood in her urine. no flank pain. MUSCULOSKELETAL: She notes full range of motion of all her joints without pain or swelling. NEUROLOGICAL: , no headache. no vision changes, or fainting. No numbness or tingling. Objective - Vital Signs Vital signs: Vital Signs Temp 97.5 F L 04/17/18 05:00 Pulse 84 04/17/18 11:32 Resp 20 04/17/18 05:00 BP 172/74 04/17/18 05:00 Pulse Ox 97 04/17/18 07:07 Intake & Output 04/16/18 04/17/18 04/17/18 18:59 06:59 18:59 Intake Total 580 Output Total 500 1600 Balance -500 -1020 Weight 148.2 kg Intake: IV 180 Sodium Chloride 0.9% 1, 180 000 ml @ 20 mls/hr IV . Q24H [facility] Rx#:[id number] Oral 400 Output: Urine 500 1600 Uretheral (Stallings) 1600 Other: Voiding Method Indwelling Catheter Indwelling Catheter Indwelling Catheter - Exam Vital Signs: I have reviewed the vital signs. GENERAL: Well-nourished, Well-developed , no apparent distress, cooperative Eyes: PERRL, extraoculry movements intact, clear conjunctiva Head: : Atraumatic external nose and ears, oropharyngeal mucosa is moist without lesions or exudates Neck: Symmetric, trachea midline, No thyromegaly, no masses or neck vain pulsation, no neck rigidity CVS: +S1/S2, No murmurs or gallops. Peripheral pulses 2+ and equal in all extremities. RESP: Unlabored respiratory effort. Diminished breath sounds with expiratory wheezes bilateral Abdomen: Bowel sounds present in all 4 quadrants, Soft to palpation, Nontender/ Nondistended, No hepatosplenomegaly, no hernias or masses, no CVA tnderness Musculoskeletal: Extremities w/o deformity, No cyanosis or clubbing, no joint swelling - Labs CBC & Chem 7: 04/15/18 11:44 04/15/18 11:44 Labs: Abnormal Lab Results - Last 24 Hours (Table) 04/16/18 04/16/18 04/17/18 Range/Units 17:30 19:38 06:44 POC Glucose (mg/dL) 241 H 315 H 291 H (75-99) mg/dL 04/17/18 Range/Units 11:18 POC Glucose (mg/dL) 373 H (75-99) mg/dL Microbiology - Last 24 Hours (Table) 04/10/18 19:10 Blood Culture - Final Blood No Growth after 144 hours Assessment and Plan Assessment: 1. Type 2 diabetes mellitus with stress hyperglycemia Increase LEvemir, added 20 units of Levemir in the morning Added NovoLog 5 units with meals 3 times a day around the clock 2. Acute exacerbation of chronic obstructive airways disease Continue systemic steroids and bronchodilators antibiotics Diuretics Incentive spirometry if possible to have PT to move her to wheel chair (pt's pily) Pulmonary service following 3. Constipation Patient has had several good sides bowel movements Continue stool softeners 4. Essential hypertension Blood pressure stable 6. Neurogenic bladder Concern for urine getting cloudy we'll check UA 7. Chronic debility 8. Chronic normocytic anemia Hemoglobin has been stable May consider checking iron studies No mediport for now
[2018-04-17] MEDS: ASCORBIC ACID 500 MG TAB PO SCH (12:47)
[2018-04-17] MEDS: LEVOFLOXACIN 250 MG TAB PO SCH (12:47)
[2018-04-17] MEDS: FERROUS SULFATE 325 MG TAB PO SCH (12:47)
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
[2018-04-17 16:32] LABS: HCT 33.3 % (34.0-46.0); HGB 10.6 gm/dL (11.4-16.0); MCH 29.6 pg (25.0-35.0); MCHC 31.8 g/dL (31.0-37.0); MCV 92.9 fL (80.0-100.0); Mean Platelet Volume 6.8; Platelet Count 221 k/uL (150-450); RBC 3.58 m/uL (3.80-5.40); RDW 14.6 % (11.5-15.5); WBC 9.3 k/uL (3.8-10.6)
[2018-04-17 16:36] LABS: Calcium 8.9 mg/dL (8.4-10.2); Potassium 4.7 mmol/L (3.5-5.1)
[2018-04-17 17:18] LABS: Glucose,Whole Blood 256 mg/dL (75-99)
[2018-04-17 19:18] LABS: Appearance,Urine Turbid (Clear); Bacteria,Urine Many /hpf; Bilirubin,Urine Negative (Negative); Blood,Urine Moderate (Negative); Budding Yeast,Urine Many /hpf; Color,Urine Yellow; Glucose,Urine (UA) Negative (Negative); Ketones,Urine Negative (Negative); Leukocyte Esterase,Urine Large (Negative); Nitrite,Urine Negative (Negative); PH, Urine 5.5 (5.0-8.0); Protein,Urine 1+ (Negative); RBC,Urine 115 /hpf (0-5); Specific Gravity,Urine 1.015 (1.001-1.035); Urobilinogen,Urine <2.0 mg/dL (<2.0)
[2018-04-17 20:15] LABS: Glucose,Whole Blood 275 mg/dL (75-99)
[2018-04-17] MEDS: GABAPENTIN 300 MG CAP PO SCH (20:55)
[2018-04-17] MEDS: ASPIRIN 81 MG PO SCH (20:55)
[2018-04-17] MEDS: PANTOPRAZOLE 40 MG TABLET PO SCH (20:55)
[2018-04-17] MEDS: MELATONIN 3 MG TABLET PO PRN (20:55)
[2018-04-17] MEDS: MONTELUKAST 10 MG TAB PO SCH (20:55)
[2018-04-17] MEDS: SODIUM CHLORIDE 0.9% 1,000 ML IV SCH (20:56)
[2018-04-17] MEDS: INSULIN DETEMIR 100 UNIT/ML 10 ML VIAL SQ SCH (20:57)
[2018-04-17] MEDS: NEOMYCIN-BACITRACIN-POLY OINT 14 GM TUBE TOPICAL SCH (20:58)
[2018-04-17] MEDS: PRAVASTATIN SODIUM 20 MG TAB PO SCH (20:58)
[2018-04-18] MEDS: IPRATROPIUM-ALBUTEROL 3 ML NEB INHALATION SCH ×6 (00:08→18:55)
[2018-04-18] MEDS: methylPREDNISolone SOD SUCCI 40 MG/ML 1 ML VIAL IV SCH ×2 (05:44→12:08)
[2018-04-18 06:52] LABS: Glucose,Whole Blood 345 mg/dL (75-99)
[2018-04-18] MEDS: BUDESONIDE 1 MG/2 ML NEBU INHALATION SCH ×2 (06:56→18:55)
[2018-04-18] MEDS: FORMOTEROL FUMARATE 20 MCG/2 ML NEBU INHALATION SCH ×2 (06:56→19:11)
[2018-04-18 08:41] LABS: HCT 35.5 % (34.0-46.0); HGB 11.1 gm/dL (11.4-16.0); Hypochromasia Slight; MCH 29.1 pg (25.0-35.0); MCHC 31.2 g/dL (31.0-37.0); MCV 93.4 fL (80.0-100.0); Mean Platelet Volume 6.7; Platelet Count 243 k/uL (150-450); RDW 14.8 % (11.5-15.5); WBC 9.3 k/uL (3.8-10.6)
[2018-04-18 08:57] LABS: Calcium 9.2 mg/dL (8.4-10.2); Potassium 4.5 mmol/L (3.5-5.1)
[2018-04-18] MEDS ORDERED: INSULIN DETEMIR 100 UNIT/ML 10 ML VIAL SQ SCH (09:00)
[2018-04-18] MEDS: LACTULOSE 20 GM/30 ML CUP PO PRN (09:06)
[2018-04-18] MEDS: INSULIN ASPART 100 UNIT/ML 1 ML 10 ML VIAL SQ SCH ×7 (09:07→21:06)
[2018-04-18] MEDS: HEPARIN SODIUM,PORCINE 5,000 UNIT/ML 1 ML VIAL SQ SCH ×2 (09:09→17:52)
[2018-04-18] MEDS: CITALOPRAM HYDROBROMIDE 10 MG TAB PO SCH (09:10)
[2018-04-18] MEDS: amLODIPine 10 MG TAB PO SCH (09:10)
[2018-04-18] MEDS: BACLOFEN 10 MG TAB PO SCH ×2 (09:10→21:08)
[2018-04-18] MEDS: LORATADINE 10 MG TAB PO SCH (09:12)
[2018-04-18] MEDS: POLYETHYLENE GLYCOL 3350 17 GM POWD.PACK PO SCH (09:13)
[2018-04-18 11:13] LABS: Glucose,Whole Blood 349 mg/dL (75-99)
[2018-04-18] MEDS: ACETAMINOPHEN TAB 325 MG TAB PO PRN (12:07)
[2018-04-18] MEDS: FERROUS SULFATE 325 MG TAB PO SCH (12:07)
[2018-04-18] MEDS: SENNOSIDES 8.6 MG TAB PO SCH (12:08)
[2018-04-18] MEDS: ASCORBIC ACID 500 MG TAB PO SCH (12:08)
[2018-04-18] MEDS: LEVOFLOXACIN 500 MG TAB PO SCH (13:28)
--- NOTE | 2018-04-18 14:32 | P.PN ---
Subjective Respiratory status is about the same. Still some chest congestion and wheezing cough is becoming more productive now. Otherwise no fever chills or chest pains. She does have some urinary frequency and dysuria and urinalysis showing elevated leukocyte esterase and WBC count we are waiting for urinary culture this point. REVIEW OF SYSTEMS: CONSTITUTIONAL: No fever or chills HEENT: No changes in vision or voice CARDIOVASCULAR: no chest pain or abnormal heart beats, or any swelling in ankles or feet. RESPIRATORY: As per HPI GASTROINTESTINAL: No abdominal pain, no nausea no vomiting no constipation or diarrhea GENITOURINARY: As per HPI MUSCULOSKELETAL: She notes full range of motion of all her joints without pain or swelling. NEUROLOGICAL: , no headache. no vision changes, or fainting. No numbness or tingling. Objective - Vital Signs Vital signs: Vital Signs Temp 98.4 F 04/18/18 12:12 Pulse 93 04/18/18 12:12 Resp 16 04/18/18 12:12 BP 143/69 04/18/18 12:12 Pulse Ox 95 04/18/18 12:12 Intake & Output 04/17/18 04/18/18 04/18/18 18:59 06:59 18:59 Intake Total 160 870 Output Total 950 1202 350 Balance -790 -332 -350 Weight 148.2 kg 157 kg Intake: IV 160 Sodium Chloride 0.9% 1, 160 000 ml @ 20 mls/hr IV . Q24H [facility] Rx#:[id number] Intake, IV Titration 200 Amount Sodium Chloride 0.9% 1, 200 000 ml @ 20 mls/hr IV . Q24H [facility] Rx#:[id number] Oral 670 Output: Urine 950 1200 350 Stool 2 Other: Voiding Method Indwelling Catheter Indwelling Catheter - Exam Vital Signs: I have reviewed the vital signs. GENERAL: Well-nourished, Well-developed , no apparent distress, cooperative Eyes: PERRL, extraoculry movements intact, clear conjunctiva Head: : Atraumatic external nose and ears, oropharyngeal mucosa is moist without lesions or exudates Neck: Symmetric, trachea midline, No thyromegaly, no masses or neck vain pulsation, no neck rigidity CVS: +S1/S2, No murmurs or gallops. Peripheral pulses 2+ and equal in all extremities. RESP: Unlabored respiratory effort. Diminished breath sounds with expiratory wheezes bilateral Abdomen: Bowel sounds present in all 4 quadrants, Soft to palpation, Nontender/ Nondistended, No hepatosplenomegaly, no hernias or masses, no CVA tnderness Musculoskeletal: Extremities w/o deformity, No cyanosis or clubbing, no joint swelling - Labs CBC & Chem 7: 04/18/18 07:55 04/18/18 07:55 Labs: Abnormal Lab Results - Last 24 Hours (Table) 04/17/18 04/17/18 04/17/18 Range/Units 16:17 16:17 17:11 RBC 3.58 L (3.80-5.40) m/uL Hgb 10.6 L (11.4-16.0) gm/dL Hct 33.3 L (34.0-46.0) % Sodium 136 L (137-145) mmol/L Carbon Dioxide 31 H (22-30) mmol/L BUN 44 H (7-17) mg/dL Creatinine 1.20 H (0.52-1.04) mg/dL Glucose 258 H (74-99) mg/dL POC Glucose (mg/dL) 256 H (75-99) mg/dL Urine Appearance (Clear) Urine Protein (Negative) Urine Blood (Negative) Ur Leukocyte Esterase (Negative) Urine RBC (0-5) /hpf Urine WBC (0-5) /hpf Urine Bacteria (None) /hpf Urine Yeast (Budding) (None) /hpf 04/17/18 04/17/18 04/18/18 Range/Units 18:46 20:13 06:49 RBC (3.80-5.40) m/uL Hgb (11.4-16.0) gm/dL Hct (34.0-46.0) % Sodium (137-145) mmol/L Carbon Dioxide (22-30) mmol/L BUN (7-17) mg/dL Creatinine (0.52-1.04) mg/dL Glucose (74-99) mg/dL POC Glucose (mg/dL) 275 H 345 H (75-99) mg/dL Urine Appearance Turbid H (Clear) Urine Protein 1+ H (Negative) Urine Blood Moderate H (Negative) Ur Leukocyte Esterase Large H (Negative) Urine RBC 115 H (0-5) /hpf Urine WBC 83 H (0-5) /hpf Urine Bacteria Many H (None) /hpf Urine Yeast (Budding) Many H (None) /hpf 04/18/18 04/18/18 04/18/18 Range/Units 07:55 07:55 11:10 RBC (3.80-5.40) m/uL Hgb 11.1 L (11.4-16.0) gm/dL Hct (34.0-46.0) % Sodium 136 L (137-145) mmol/L Carbon Dioxide (22-30) mmol/L BUN 45 H (7-17) mg/dL Creatinine (0.52-1.04) mg/dL Glucose 311 H (74-99) mg/dL POC Glucose (mg/dL) 349 H (75-99) mg/dL Urine Appearance (Clear) Urine Protein (Negative) Urine Blood (Negative) Ur Leukocyte Esterase (Negative) Urine RBC (0-5) /hpf Urine WBC (0-5) /hpf Urine Bacteria (None) /hpf Urine Yeast (Budding) (None) /hpf Microbiology - Last 24 Hours (Table) 04/17/18 18:46 Urine Culture - Preliminary Urine,Voided Assessment and Plan Assessment: 1. Type 2 diabetes mellitus with stress hyperglycemia Again we will continue to increase her Levemir and prandial coverage is sugars continue to be very high 2. Acute exacerbation of chronic obstructive airways disease Continue systemic steroids and bronchodilators antibiotics Diuretics Incentive spirometry if possible to have PT to move her to wheel chair (pt's pily) Pulmonary service following 3. Constipation Patient has had several good sides bowel movements Continue stool softeners 4. Essential hypertension Blood pressure stable 6. Neurogenic bladder She does complain of some dysuria and urine shows some signs of possible infection Given protracted hospital stay and exposure to antibiotics we will await urine culture 7. Chronic debility Ask PT if they we will be able to get patient up in the wheelchair which patient baseline 8. Chronic normocytic anemia Hemoglobin has been stable May consider checking iron studies
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
[2018-04-18 17:03] LABS: Glucose,Whole Blood 264 mg/dL (75-99)
[2018-04-18] MEDS: methylPREDNISolone SOD SUCCI 125 MG/2 ML VIAL IV SCH (17:52)
[2018-04-18 20:37] LABS: Glucose,Whole Blood 226 mg/dL (75-99)
[2018-04-18] MEDS: INSULIN DETEMIR 100 UNIT/ML 10 ML VIAL SQ SCH (21:06)
[2018-04-18] MEDS: PANTOPRAZOLE 40 MG TABLET PO SCH (21:06)
[2018-04-18] MEDS: DOCUSATE 100 MG CAP PO SCH (21:07)
[2018-04-18] MEDS: PRAVASTATIN SODIUM 20 MG TAB PO SCH (21:07)
[2018-04-18] MEDS: GABAPENTIN 300 MG CAP PO SCH (21:07)
[2018-04-18] MEDS: MONTELUKAST 10 MG TAB PO SCH (21:07)
[2018-04-18] MEDS: ASPIRIN 81 MG PO SCH (21:07)
[2018-04-18] MEDS: NEOMYCIN-BACITRACIN-POLY OINT 14 GM TUBE TOPICAL SCH (23:30)
[2018-04-19] MEDS: IPRATROPIUM-ALBUTEROL 3 ML NEB INHALATION SCH ×6 (00:05→21:02)
[2018-04-19] MEDS: HEPARIN SODIUM,PORCINE 5,000 UNIT/ML 1 ML VIAL SQ SCH ×3 (00:12→17:49)
[2018-04-19] MEDS: methylPREDNISolone SOD SUCCI 125 MG/2 ML VIAL IV SCH ×4 (00:12→17:49)
[2018-04-19] MEDS: SODIUM CHLORIDE 0.9% 1,000 ML IV SCH (02:27)
[2018-04-19 03:46] LABS: Glucose,Whole Blood 338 mg/dL (75-99)
[2018-04-19 06:55] LABS: Glucose,Whole Blood 282 mg/dL (75-99)
[2018-04-19] MEDS: BUDESONIDE 1 MG/2 ML NEBU INHALATION SCH ×2 (07:19→21:02)
[2018-04-19] MEDS: FORMOTEROL FUMARATE 20 MCG/2 ML NEBU INHALATION SCH ×2 (07:19→21:02)
[2018-04-19 09:00] LABS: HCT 34.2 % (34.0-46.0); HGB 10.6 gm/dL (11.4-16.0); MCH 28.8 pg (25.0-35.0); MCV 92.9 fL (80.0-100.0); Platelet Count 194 k/uL (150-450); RBC 3.68 m/uL (3.80-5.40); RDW 14.7 % (11.5-15.5); WBC 8.4 k/uL (3.8-10.6)
[2018-04-19 09:17] LABS: Calcium 8.9 mg/dL (8.4-10.2); Potassium 4.9 mmol/L (3.5-5.1)
[2018-04-19] MEDS: INSULIN ASPART 100 UNIT/ML 1 ML 10 ML VIAL SQ SCH ×7 (09:27→21:57)
[2018-04-19] MEDS: BACLOFEN 10 MG TAB PO SCH ×2 (09:32→21:51)
[2018-04-19] MEDS: DOCUSATE 100 MG CAP PO SCH ×2 (09:32→21:51)
[2018-04-19] MEDS: INSULIN DETEMIR 100 UNIT/ML 10 ML VIAL SQ SCH ×2 (09:32→21:51)
[2018-04-19] MEDS: amLODIPine 10 MG TAB PO SCH (09:32)
[2018-04-19] MEDS: CITALOPRAM HYDROBROMIDE 10 MG TAB PO SCH (09:32)
[2018-04-19] MEDS: LORATADINE 10 MG TAB PO SCH (09:32)
[2018-04-19] MEDS: FUROSEMIDE 40 MG TAB PO SCH (09:32)
[2018-04-19 12:06] LABS: Glucose,Whole Blood 284 mg/dL (75-99)
[2018-04-19] MEDS: ERGOCALCIFEROL 50,000 UNIT CAP PO SCH (12:39)
[2018-04-19] MEDS: FERROUS SULFATE 325 MG TAB PO SCH (12:44)
[2018-04-19] MEDS: ASCORBIC ACID 500 MG TAB PO SCH (12:44)
[2018-04-19] MEDS: LEVOFLOXACIN 500 MG TAB PO SCH (12:46)
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
[2018-04-19] MEDS: LACTULOSE 20 GM/30 ML CUP PO PRN (12:59)
[2018-04-19 17:24] LABS: Glucose,Whole Blood 203 mg/dL (75-99)
--- NOTE | 2018-04-19 18:08 | P.PN ---
Subjective Basically no new events since last night. She continues about the same and respiratory status been slowly improving. No nausea vomiting fever or chills. Urine is growing gram-negative bacilli identification and susceptibility pending REVIEW OF SYSTEMS: CONSTITUTIONAL: No fever or chills HEENT: No changes in vision or voice CARDIOVASCULAR: no chest pain or abnormal heart beats, or any swelling in ankles or feet. RESPIRATORY: As per HPI GASTROINTESTINAL: No abdominal pain, no nausea no vomiting no constipation or diarrhea GENITOURINARY: As per HPI MUSCULOSKELETAL: She notes full range of motion of all her joints without pain or swelling. NEUROLOGICAL: , no headache. no vision changes, or fainting. No numbness or tingling. Objective - Vital Signs Vital signs: Vital Signs Temp 98.2 F 04/19/18 13:00 Pulse 93 04/19/18 15:55 Resp 18 04/19/18 13:00 BP 124/60 04/19/18 13:00 Pulse Ox 95 04/19/18 13:00 Intake & Output 04/18/18 04/19/18 04/19/18 18:59 06:59 18:59 Intake Total 190 Output Total 6990 192 0785 Balance -1125 -85 -1200 Weight 157 kg Intake: IV 190 Sodium Chloride 0.9% 1, 190 000 ml @ 20 mls/hr IV . Q24H [facility] Rx#:[id number] Output: Urine 1373 014 8302 Uretheral (Stallings) 1200 Other: Voiding Method Indwelling Catheter Indwelling Catheter # Bowel Movements 1 - Exam Vital Signs: I have reviewed the vital signs. GENERAL: Well-nourished, Well-developed , no apparent distress, cooperative Eyes: PERRL, extraoculry movements intact, clear conjunctiva Head: : Atraumatic external nose and ears, oropharyngeal mucosa is moist without lesions or exudates Neck: Symmetric, trachea midline, No thyromegaly, no masses or neck vain pulsation, no neck rigidity CVS: +S1/S2, No murmurs or gallops. Peripheral pulses 2+ and equal in all extremities. RESP: Unlabored respiratory effort. Diminished breath sounds with expiratory wheezes bilateral Abdomen: Bowel sounds present in all 4 quadrants, Soft to palpation, Nontender/ Nondistended, No hepatosplenomegaly, no hernias or masses, no CVA tnderness Musculoskeletal: Extremities w/o deformity, No cyanosis or clubbing, no joint swelling - Labs CBC & Chem 7: 04/19/18 08:17 04/19/18 08:17 Labs: Abnormal Lab Results - Last 24 Hours (Table) 04/18/18 04/19/18 04/19/18 Range/Units 20:05 03:28 06:54 RBC (3.80-5.40) m/uL Hgb (11.4-16.0) gm/dL Sodium (137-145) mmol/L Carbon Dioxide (22-30) mmol/L BUN (7-17) mg/dL Creatinine (0.52-1.04) mg/dL Glucose (74-99) mg/dL POC Glucose (mg/dL) 226 H 338 H 282 H (75-99) mg/dL 04/19/18 04/19/18 04/19/18 Range/Units 08:17 08:17 12:05 RBC 3.68 L (3.80-5.40) m/uL Hgb 10.6 L (11.4-16.0) gm/dL Sodium 136 L (137-145) mmol/L Carbon Dioxide 31 H (22-30) mmol/L BUN 44 H (7-17) mg/dL Creatinine 1.09 H (0.52-1.04) mg/dL Glucose 274 H (74-99) mg/dL POC Glucose (mg/dL) 284 H (75-99) mg/dL 04/19/18 Range/Units 17:23 RBC (3.80-5.40) m/uL Hgb (11.4-16.0) gm/dL Sodium (137-145) mmol/L Carbon Dioxide (22-30) mmol/L BUN (7-17) mg/dL Creatinine (0.52-1.04) mg/dL Glucose (74-99) mg/dL POC Glucose (mg/dL) 203 H (75-99) mg/dL Microbiology - Last 24 Hours (Table) 04/17/18 18:46 Urine Culture - Preliminary Urine,Voided Gram Neg Bacilli Gram Neg Bacilli#2 Assessment and Plan Assessment: 1. Type 2 diabetes mellitus with stress hyperglycemia Continue present scheduled Levemir and prandial coverage as blood sugars continued Stieber lies 2. Acute exacerbation of chronic obstructive airways disease Continue systemic steroids and bronchodilators antibiotics Diuretics Incentive spirometry if possible to have PT to move her to wheel chair (pt's pily) Pulmonary service following 3. Constipation Patient has had several good sides bowel movements Continue stool softeners 4. Essential hypertension Blood pressure stable 6. Neurogenic bladder She does complain of some dysuria and urine shows some signs of possible infection Given protracted hospital stay and exposure to antibiotics we will await urine culture 7. Chronic debility Ask PT if they we will be able to get patient up in the wheelchair which patient baseline 8. Chronic normocytic anemia Hemoglobin has been stable May consider checking iron studies
[2018-04-19 20:32] LABS: Glucose,Whole Blood 233 mg/dL (75-99)
[2018-04-19] MEDS: ASPIRIN 81 MG PO SCH (21:49)
[2018-04-19] MEDS: MONTELUKAST 10 MG TAB PO SCH (21:49)
[2018-04-19] MEDS: GABAPENTIN 300 MG CAP PO SCH (21:51)
[2018-04-19] MEDS: NEOMYCIN-BACITRACIN-POLY OINT 14 GM TUBE TOPICAL SCH (21:58)
[2018-04-19] MEDS: PANTOPRAZOLE 40 MG TABLET PO SCH (21:59)
[2018-04-20] MEDS: PRAVASTATIN SODIUM 20 MG TAB PO SCH ×2 (00:47→21:07)
[2018-04-20] MEDS: methylPREDNISolone SOD SUCCI 125 MG/2 ML VIAL IV SCH ×5 (00:48→23:17)
[2018-04-20] MEDS: HEPARIN SODIUM,PORCINE 5,000 UNIT/ML 1 ML VIAL SQ SCH ×4 (00:48→23:18)
[2018-04-20] MEDS: IPRATROPIUM-ALBUTEROL 3 ML NEB INHALATION SCH ×7 (01:26→23:26)
[2018-04-20 02:18] LABS: Glucose,Whole Blood 257 mg/dL (75-99)
[2018-04-20] MEDS: SODIUM CHLORIDE 0.9% 1,000 ML IV SCH (06:02)
[2018-04-20 07:13] LABS: Glucose,Whole Blood 224 mg/dL (75-99)
[2018-04-20 07:15] LABS: HCT 34.1 % (34.0-46.0); HGB 10.4 gm/dL (11.4-16.0); MCH 28.7 pg (25.0-35.0); MCHC 30.5 g/dL (31.0-37.0); MCV 94.1 fL (80.0-100.0); Mean Platelet Volume 6.7; Platelet Count 225 k/uL (150-450); RBC 3.62 m/uL (3.80-5.40); RDW 14.5 % (11.5-15.5); WBC 8.5 k/uL (3.8-10.6)
[2018-04-20 07:26] LABS: Potassium 5.4 mmol/L (3.5-5.1)
[2018-04-20] MEDS: BUDESONIDE 1 MG/2 ML NEBU INHALATION SCH ×2 (07:31→20:25)
[2018-04-20] MEDS: FORMOTEROL FUMARATE 20 MCG/2 ML NEBU INHALATION SCH ×2 (07:31→20:25)
[2018-04-20] MEDS: FUROSEMIDE 40 MG TAB PO SCH (08:13)
[2018-04-20] MEDS: BACLOFEN 10 MG TAB PO SCH ×2 (08:13→21:07)
[2018-04-20] MEDS: INSULIN ASPART 100 UNIT/ML 1 ML 10 ML VIAL SQ SCH ×7 (08:13→21:07)
[2018-04-20] MEDS: LORATADINE 10 MG TAB PO SCH (08:13)
[2018-04-20] MEDS: CITALOPRAM HYDROBROMIDE 10 MG TAB PO SCH (08:13)
[2018-04-20] MEDS: DOCUSATE 100 MG CAP PO SCH ×2 (08:13→21:07)
[2018-04-20] MEDS: INSULIN DETEMIR 100 UNIT/ML 10 ML VIAL SQ SCH ×2 (08:13→21:07)
[2018-04-20] MEDS: amLODIPine 10 MG TAB PO SCH (08:13)
[2018-04-20] MEDS: ACETAMINOPHEN TAB 325 MG TAB PO PRN ×2 (08:40→23:18)
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
[2018-04-20 12:36] LABS: Glucose,Whole Blood 321 mg/dL (75-99)
[2018-04-20] MEDS: ASCORBIC ACID 500 MG TAB PO SCH (13:04)
[2018-04-20] MEDS: FERROUS SULFATE 325 MG TAB PO SCH (13:04)
[2018-04-20] MEDS: LEVOFLOXACIN 500 MG TAB PO SCH (13:04)
[2018-04-20 17:25] LABS: Glucose,Whole Blood 385 mg/dL (75-99)
[2018-04-20 20:34] LABS: Glucose,Whole Blood 244 mg/dL (75-99)
[2018-04-20] MEDS: ASPIRIN 81 MG PO SCH (21:07)
[2018-04-20] MEDS: GABAPENTIN 300 MG CAP PO SCH (21:07)
[2018-04-20] MEDS: MONTELUKAST 10 MG TAB PO SCH (21:07)
[2018-04-20] MEDS: PANTOPRAZOLE 40 MG TABLET PO SCH (21:07)
[2018-04-20] MEDS: NEOMYCIN-BACITRACIN-POLY OINT 14 GM TUBE TOPICAL SCH (21:08)
[2018-04-21 01:57] LABS: Glucose,Whole Blood 211 mg/dL (75-99)
[2018-04-21] MEDS: IPRATROPIUM-ALBUTEROL 3 ML NEB INHALATION SCH ×6 (03:31→23:33)
[2018-04-21] MEDS: SODIUM CHLORIDE 0.9% 1,000 ML IV SCH ×2 (05:27→22:55)
[2018-04-21] MEDS: methylPREDNISolone SOD SUCCI 125 MG/2 ML VIAL IV SCH ×2 (05:28→12:43)
[2018-04-21 07:13] LABS: Glucose,Whole Blood 138 mg/dL (75-99)
[2018-04-21] MEDS: FORMOTEROL FUMARATE 20 MCG/2 ML NEBU INHALATION SCH ×2 (07:59→18:54)
[2018-04-21] MEDS: BUDESONIDE 1 MG/2 ML NEBU INHALATION SCH ×2 (07:59→18:54)
[2018-04-21] MEDS: LORATADINE 10 MG TAB PO SCH (08:08)
[2018-04-21] MEDS: HEPARIN SODIUM,PORCINE 5,000 UNIT/ML 1 ML VIAL SQ SCH ×3 (08:08→23:25)
[2018-04-21] MEDS: CITALOPRAM HYDROBROMIDE 10 MG TAB PO SCH (08:08)
[2018-04-21] MEDS: FUROSEMIDE 40 MG TAB PO SCH (08:08)
[2018-04-21] MEDS: amLODIPine 10 MG TAB PO SCH (08:08)
[2018-04-21] MEDS: DOCUSATE 100 MG CAP PO SCH ×2 (08:08→22:47)
[2018-04-21] MEDS: BACLOFEN 10 MG TAB PO SCH ×2 (08:08→22:47)
[2018-04-21] MEDS: INSULIN ASPART 100 UNIT/ML 1 ML 10 ML VIAL SQ SCH ×7 (08:09→22:48)
[2018-04-21 08:52] LABS: HCT 36.6 % (34.0-46.0); HGB 11.2 gm/dL (11.4-16.0); MCHC 30.6 g/dL (31.0-37.0); MCV 94.9 fL (80.0-100.0); Mean Platelet Volume 6.8; Platelet Count 246 k/uL (150-450); RBC 3.86 m/uL (3.80-5.40); RDW 14.7 % (11.5-15.5)
[2018-04-21 09:04] LABS: Calcium 8.9 mg/dL (8.4-10.2)
[2018-04-21 09:33] LABS: Potassium 5.9 mmol/L (3.5-5.1)
[2018-04-21] MEDS: INSULIN DETEMIR 100 UNIT/ML 10 ML VIAL SQ SCH ×2 (10:09→22:48)
[2018-04-21 11:15] LABS: Glucose,Whole Blood 250 mg/dL (75-99)
[2018-04-21] MEDS: FERROUS SULFATE 325 MG TAB PO SCH (12:43)
[2018-04-21] MEDS: ASCORBIC ACID 500 MG TAB PO SCH (12:43)
[2018-04-21] MEDS: LEVOFLOXACIN 500 MG TAB PO SCH (12:45)
[2018-04-21] MEDS: ACETAMINOPHEN TAB 325 MG TAB PO PRN (12:45)
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
[2018-04-21] MEDS: predniSONE 20 MG TAB PO SCH (15:16)
[2018-04-21] MEDS ORDERED: SODIUM POLYSTYRENE SULFONATE 15 GM/60 ML BOTTLE PO STA (17:01)
[2018-04-21 17:05] LABS: Glucose,Whole Blood 211 mg/dL (75-99)
--- NOTE | 2018-04-21 17:10 | P.PN ---
Subjective Progress Note Date: 04/21/18 Principal diagnosis: SOB Patient is doing much better today, no significant shortness of breath, no cough , no fevers or chills. Objective - Vital Signs Vital signs: Vital Signs Temp 97.9 F 04/21/18 11:50 Pulse 86 04/21/18 16:01 Resp 15 04/21/18 11:50 BP 142/64 04/21/18 11:50 Pulse Ox 98 04/21/18 15:53 Intake & Output 04/20/18 04/21/18 04/21/18 18:59 06:59 18:59 Intake Total 140 Output Total 1505 702 504 Balance -1502 -562 -504 Intake: IV 140 Sodium Chloride 0.9% 1, 140 000 ml @ 20 mls/hr IV . Q24H [facility] Rx#:[id number] Output: Urine 1500 700 500 Uretheral (Stallings) 1500 700 Stool 2 2 4 Other: Voiding Method Indwelling Catheter Indwelling Catheter Indwelling Catheter - Exam Vital Signs: I have reviewed the vital signs. GENERAL: Well-nourished, Well-developed , no apparent distress, cooperative Eyes: PERRL, extraoculry movements intact, clear conjunctiva Head: : Atraumatic external nose and ears, oropharyngeal mucosa is moist without lesions or exudates Neck: Symmetric, trachea midline, No thyromegaly, no masses or neck vain pulsation, no neck rigidity CVS: +S1/S2, No murmurs or gallops. Peripheral pulses 2+ and equal in all extremities. RESP: Unlabored respiratory effort. Diminished breath sounds with expiratory wheezes bilateral Abdomen: Bowel sounds present in all 4 quadrants, Soft to palpation, Nontender/ Nondistended, No hepatosplenomegaly, no hernias or masses, no CVA tnderness Musculoskeletal: Extremities w/o deformity, No cyanosis or clubbing, no joint swelling - Labs CBC & Chem 7: 04/21/18 08:25 04/21/18 08:25 Labs: Abnormal Lab Results - Last 24 Hours (Table) 04/20/18 04/20/18 04/21/18 Range/Units 17:24 20:33 01:55 Hgb (11.4-16.0) gm/dL MCHC (31.0-37.0) g/dL Potassium (3.5-5.1) mmol/L Carbon Dioxide (22-30) mmol/L BUN (7-17) mg/dL Glucose (74-99) mg/dL POC Glucose (mg/dL) 385 H 244 H 211 H (75-99) mg/dL 04/21/18 04/21/18 04/21/18 Range/Units 07:10 08:25 08:25 Hgb 11.2 L (11.4-16.0) gm/dL MCHC 30.6 L (31.0-37.0) g/dL Potassium 5.9 H (3.5-5.1) mmol/L Carbon Dioxide 32 H (22-30) mmol/L BUN 46 H (7-17) mg/dL Glucose 106 H (74-99) mg/dL POC Glucose (mg/dL) 138 H (75-99) mg/dL 04/21/18 Range/Units 11:14 Hgb (11.4-16.0) gm/dL MCHC (31.0-37.0) g/dL Potassium (3.5-5.1) mmol/L Carbon Dioxide (22-30) mmol/L BUN (7-17) mg/dL Glucose (74-99) mg/dL POC Glucose (mg/dL) 250 H (75-99) mg/dL Microbiology - Last 24 Hours (Table) 04/17/18 18:46 Urine Culture - Final Urine,Voided Escherichia coli Pseudomonas aeruginosa Assessment and Plan Plan: 1. Type 2 diabetes mellitus with stress hyperglycemia Continue present scheduled Levemir and prandial coverage 2. Acute exacerbation of chronic obstructive airways disease Continue systemic steroids and bronchodilators Continue antibiotics Diuretics Incentive spirometry Pulmonary service following, they will likely clear patient for discharge in a.m. 3. Constipation Patient has had several good bowel movements Continue stool softeners 4. Essential hypertension Blood pressure stable 6. Neurogenic bladder She did complain of some dysuria earlier and urine shows some signs of possible infection Up until recently she was straight cathing herself at home since she became sick over the last month she had a Stallings catheter put in. The catheter was changed about 10 days ago Urine culture showing ESBL resistant to all abx tested. Consult ID [id number]. Chronic debility PT Initially during the hospitalization patient refused to be discharge to retirement facility wishes to be discharged home. Reassess tomorrow. She states that she has good support at home and home care services.
[2018-04-21 20:21] LABS: Glucose,Whole Blood 220 mg/dL (75-99)
[2018-04-21] MEDS: ASPIRIN 81 MG PO SCH (22:46)
[2018-04-21] MEDS: MONTELUKAST 10 MG TAB PO SCH (22:47)
[2018-04-21] MEDS: PANTOPRAZOLE 40 MG TABLET PO SCH (22:47)
[2018-04-21] MEDS: GABAPENTIN 300 MG CAP PO SCH (22:47)
[2018-04-21] MEDS: NEOMYCIN-BACITRACIN-POLY OINT 14 GM TUBE TOPICAL SCH (22:50)
[2018-04-21] MEDS: PRAVASTATIN SODIUM 20 MG TAB PO SCH (23:17)
[2018-04-22] MEDS: IPRATROPIUM-ALBUTEROL 3 ML NEB INHALATION SCH ×6 (03:01→23:49)
[2018-04-22] MEDS: ACETAMINOPHEN TAB 325 MG TAB PO PRN (06:06)
[2018-04-22] MEDS: BUDESONIDE 1 MG/2 ML NEBU INHALATION SCH ×2 (06:56→19:16)
[2018-04-22] MEDS: FORMOTEROL FUMARATE 20 MCG/2 ML NEBU INHALATION SCH ×2 (06:56→19:16)
[2018-04-22 07:13] LABS: Glucose,Whole Blood 147 mg/dL (75-99)
[2018-04-22] MEDS: INSULIN ASPART 100 UNIT/ML 1 ML 10 ML VIAL SQ SCH ×7 (08:37→21:53)
[2018-04-22] MEDS: CITALOPRAM HYDROBROMIDE 10 MG TAB PO SCH (08:38)
[2018-04-22] MEDS: HEPARIN SODIUM,PORCINE 5,000 UNIT/ML 1 ML VIAL SQ SCH ×3 (08:38→23:56)
[2018-04-22] MEDS: INSULIN DETEMIR 100 UNIT/ML 10 ML VIAL SQ SCH ×2 (08:38→21:54)
[2018-04-22] MEDS: FUROSEMIDE 40 MG TAB PO SCH (08:38)
[2018-04-22] MEDS: BACLOFEN 10 MG TAB PO SCH ×2 (08:38→21:53)
[2018-04-22] MEDS: amLODIPine 10 MG TAB PO SCH (08:39)
[2018-04-22] MEDS: DOCUSATE 100 MG CAP PO SCH ×2 (08:39→21:52)
[2018-04-22] MEDS: predniSONE 20 MG TAB PO SCH (08:43)
[2018-04-22] MEDS: LORATADINE 10 MG TAB PO SCH (08:43)
[2018-04-22 09:10] LABS: Calcium 8.8 mg/dL (8.4-10.2); Magnesium 2.7 mg/dL (1.6-2.3); Phosphorus 3.9 mg/dL (2.5-4.5); Potassium 4.7 mmol/L (3.5-5.1)
[2018-04-22 11:26] LABS: Glucose,Whole Blood 86 mg/dL (75-99)
[2018-04-22] MEDS: FERROUS SULFATE 325 MG TAB PO SCH (13:06)
[2018-04-22] MEDS: LEVOFLOXACIN 500 MG TAB PO SCH (13:30)
[2018-04-22] MEDS: ASCORBIC ACID 500 MG TAB PO SCH (13:30)
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
[2018-04-22 17:24] LABS: Glucose,Whole Blood 105 mg/dL (75-99)
[2018-04-22] MEDS ORDERED: MD COMMUNICATION TO PHARMACY 1 EACH MISC PO PRN (19:26)
[2018-04-22 20:26] LABS: Glucose,Whole Blood 161 mg/dL (75-99)
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
--- NOTE | 2018-04-22 20:47 | PN ---
PROGRESS NOTE DATE OF SERVICE: 04/22/2018 PRESENTING COMPLAINT: Congested cough. INTERVAL HISTORY: This patient presented with acute asthma exacerbation, some tracheobronchitis. Eating somewhat better. Sitting up. Some cough is there. ID was consulted because of organism in the urine. Family is present. Patient has chronic paraplegia. REVIEW OF SYSTEMS: Done for constitutional, cardiovascular, GI, pulmonary; relevant findings as above. CURRENT MEDICATIONS: Reviewed. They include Levaquin. PHYSICAL EXAMINATION: Temperature 98, pulse 89, respiration 20, blood pressure 138/67, pulse ox 96% on 3 L. GENERAL APPEARANCE: Well built; 59.4. Sitting up, awake. EYES: Pupils equal. Conjunctivae normal. NECK: JVD unable to assess. Mass not palpable. RESPIRATORY: Effort increased. LUNGS: Decreased breath sounds. Minimal expiratory wheezing. CARDIOVASCULAR: First and second sounds normal. No edema. ABDOMEN: Distended, soft. Liver and spleen not palpable. PSYCHIATRY: Alert and oriented x3. Mood and affect normal. NEUROLOGICAL: Bilateral lower extremity weakness. INVESTIGATIONS: Potassium 4.7, BUN 38, creatinine 0.97. Accu-Cheks are noted. ASSESSMENT: 1. Acute exacerbation of mild intermittent asthma. 2. Chronic hypoxic respiratory failure. 3. Diabetes mellitus, type 2, chronically on insulin. 4. Chronic fibromyalgia. 5. Gastroesophageal reflux disease. 6. Hyperlipidemia. 7. Essential hypertension. 8. Primary osteoarthritis. 9. Chronic hypoxic respiratory failure. 10.Morbid obesity; body mass index 59.4. 11.Chronic bilateral paraplegia from spinal surgery in 2006. 12.Chronic urinary incontinence. 13.Obstructive sleep apnea. Uses a BiPAP. PLAN: Continue current medication and treatment plan, antibiotics. Dr. Cannon was consulted to coordinate antibiotics. Patient's primary risk was symptoms of respiratory when she was admitted. It is possible that urine organism may be colonization. Acute infection cannot be ruled out. Await further input from ID. Care was discussed with the patient and family at the bedside. Questions were answered. MMODL / IJN: [id number] /
[2018-04-22] MEDS: GABAPENTIN 300 MG CAP PO SCH (21:52)
[2018-04-22] MEDS: ASPIRIN 81 MG PO SCH (21:52)
[2018-04-22] MEDS: PANTOPRAZOLE 40 MG TABLET PO SCH (21:52)
[2018-04-22] MEDS: MONTELUKAST 10 MG TAB PO SCH (21:52)
[2018-04-22] MEDS: NEOMYCIN-BACITRACIN-POLY OINT 14 GM TUBE TOPICAL SCH (21:53)
[2018-04-22] MEDS: PRAVASTATIN SODIUM 20 MG TAB PO SCH (21:53)
[2018-04-22] MEDS: SODIUM CHLORIDE 0.9% 1,000 ML IV SCH (21:54)
[2018-04-23] MEDS: IPRATROPIUM-ALBUTEROL 3 ML NEB INHALATION SCH ×5 (03:08→20:30)
[2018-04-23] MEDS: ACETAMINOPHEN TAB 325 MG TAB PO PRN (04:44)
[2018-04-23 07:01] LABS: Glucose,Whole Blood 94 mg/dL (75-99)
[2018-04-23] MEDS: FORMOTEROL FUMARATE 20 MCG/2 ML NEBU INHALATION SCH ×2 (07:21→20:30)
[2018-04-23] MEDS: BUDESONIDE 1 MG/2 ML NEBU INHALATION SCH ×2 (07:21→20:31)
[2018-04-23] MEDS: INSULIN ASPART 100 UNIT/ML 1 ML 10 ML VIAL SQ SCH ×7 (08:41→21:28)
[2018-04-23] MEDS: predniSONE 20 MG TAB PO SCH (08:52)
[2018-04-23] MEDS: BACLOFEN 10 MG TAB PO SCH ×2 (08:52→21:35)
[2018-04-23] MEDS: CITALOPRAM HYDROBROMIDE 10 MG TAB PO SCH (08:52)
[2018-04-23] MEDS: DOCUSATE 100 MG CAP PO SCH ×2 (08:52→21:35)
[2018-04-23] MEDS: amLODIPine 10 MG TAB PO SCH (08:52)
[2018-04-23] MEDS: FUROSEMIDE 40 MG TAB PO SCH (08:52)
[2018-04-23] MEDS: HEPARIN SODIUM,PORCINE 5,000 UNIT/ML 1 ML VIAL SQ SCH ×2 (08:53→17:28)
[2018-04-23] MEDS: LORATADINE 10 MG TAB PO SCH (08:53)
[2018-04-23] MEDS: INSULIN DETEMIR 100 UNIT/ML 10 ML VIAL SQ SCH ×2 (08:54→21:34)
[2018-04-23 11:34] LABS: Glucose,Whole Blood 188 mg/dL (75-99)
[2018-04-23] MEDS ORDERED: MONUROL PO ONE (12:00)
[2018-04-23] MEDS: ASCORBIC ACID 500 MG TAB PO SCH (12:47)
[2018-04-23] MEDS: FERROUS SULFATE 325 MG TAB PO SCH (12:47)
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
[2018-04-23] MEDS ORDERED: MD COMMUNICATION TO PHARMACY 1 EACH MISC PO PRN (13:46)
[2018-04-23 13:47] LABS: Glucose,Whole Blood 198 mg/dL (75-99)
--- NOTE | 2018-04-23 14:01 | P.PN ---
Subjective Progress Note Date: 04/23/18 67-year-old woman known to the service was not been hospitalized for 12 days who is developed evidence of multidrug resistant urinary tract infection. The patient has a chronic Stallings catheter in place. He has noted urinalysis is markedly abnormal and the patient continues to feel poorly. However symptoms are mostly related to her poor pulmonary status. She was she's been doing poorly over the last 6 weeks. She relates that her pulmonary status is considerably better in the summer months. She's undergone ALLERGY sensitization in the past and states that recent testing did not find reasons for this to be utilized again. It is noted she has many ALLERGIES which is certainly challenging when she becomes quite ill. At this time as the markedly abnormal urinalysis and likely urinary infection, the novel agent fosfomycin will be utilized which hopefully will be able to resolve her current urinary infection. Suggest that urinalysis and culture repeated in a week, and retreatment with fosfomycin can be done in the outpatient setting if needed. Pulmonology has evaluated him believe she is ready for discharge to home with stabilization of her pulmonary status. We discussed the importance of her home CPAP, to ensure that she is using that whenever she sleeping even resting and napping throughout the day. She is to ensure that she is cleaning the tubing and the mask and the water reservoir at least on a weekly basis with her detergent such as Rose in warm water, and then allowed to dry well. She relates that she has more than once a tubing more than one mask, which is ideal so that while the tubing and mask is drying she has another to use. After discharge she has great difficulties with follow-up appointments due to her paraplegia, but certainly would be worthwhile to follow up with the guest services representative in the outpatient setting to ensure that her status has been optimized. We'll work with homecare nurse for a follow-up urinalysis and culture in a week and retreatment if needed. 04/23/2018 patient continues to have difficulties with her pulmonary status. Continues to have wheezing some minimal cough and sputum production and no hemoptysis. She feels weak but improved since admission, not at baseline. Objective - Vital Signs Vital signs: Vital Signs Temp 97.9 F 04/23/18 05:00 Pulse 97 04/23/18 12:51 Resp 20 04/23/18 12:51 BP 158/63 04/23/18 12:51 Pulse Ox 90 L 04/23/18 12:51 Intake & Output 04/22/18 04/23/18 04/23/18 18:59 06:59 18:59 Intake Total 2280 750 Output Total 4650 1900 Balance -2370 -1150 Weight 157 kg Intake: IV 240 160 Sodium Chloride 0.9% 1, 240 160 000 ml @ 20 mls/hr IV . Q24H [facility] Rx#:[id number] Oral 2040 590 Output: Urine 1900 Uretheral (Stallings) 900 Stool 4650 Other: Voiding Method Indwelling Catheter Indwelling Catheter Indwelling Catheter # Voids 1 # Bowel Movements 1 - Exam Gen: This is a super morbid obese 67-year-old female. She is sitting up in bed and eating lunch without any difficulty. No respiratory distress is noted. HEENT: Head is atraumatic, normocephalic. Pupils equal, round. Sclerae is anicteric. Conjunctiva pink. Mucous murmurs of the mouth are moist. Patient has dentures in place. NECK: Supple. No JVD. No lymphadenopathy. No thyromegaly. LUNGS: Diminished bilaterally scattered wheezes few crackles at bases HEART: Regular rate and rhythm. No murmur. ABDOMEN: Morbidly obese. Soft. Bowel sounds are present. No masses. No tenderness. Stallings catheter draining clear manny urine. EXTREMITIES: Trace bilateral pedal edema. No calf tenderness. SCDs in place. Resolution of erythema to the right lower extremity. Lower extremity paraplegia. NEUROLOGICAL: Patient is awake, alert and oriented x3. Generalized weakness noted. - Labs CBC & Chem 7: 04/21/18 08:25 04/22/18 07:46 Labs: Abnormal Lab Results - Last 24 Hours (Table) 04/22/18 04/22/18 04/23/18 Range/Units 17:22 20:24 11:21 POC Glucose (mg/dL) 105 H 161 H 188 H (75-99) mg/dL Microbiology - Last 24 Hours (Table) 04/17/18 18:46 Urine Culture - Final Urine,Voided Escherichia coli Pseudomonas aeruginosa Laboratory Results WBC 10.0 k/uL (3.8-10.6) 04/21/18 08:25 RBC 3.86 m/uL (3.80-5.40) 04/21/18 08:25 Hgb 11.2 gm/dL (11.4-16.0) L 04/21/18 08:25 Hct 36.6 % (34.0-46.0) 04/21/18 08:25 MCV 94.9 fL (80.0-100.0) 04/21/18 08:25 MCH 29.0 pg (25.0-35.0) 04/21/18 08:25 MCHC 30.6 g/dL (31.0-37.0) L 04/21/18 08:25 RDW 14.7 % (11.5-15.5) 04/21/18 08:25 Plt Count 246 k/uL (150-450) 04/21/18 08:25 Neutrophils % 84 % 04/11/18 06:52 Lymphocytes % 10 % 04/11/18 06:52 Monocytes % 2 % 04/11/18 06:52 Eosinophils % 3 % 04/11/18 06:52 Basophils % 0 % 04/11/18 06:52 Neutrophils # 2.9 k/uL (1.3-7.7) 04/11/18 06:52 Lymphocytes # 0.3 k/uL (1.0-4.8) L 04/11/18 06:52 Monocytes # 0.1 k/uL (0-1.0) 04/11/18 06:52 Eosinophils # 0.1 k/uL (0-0.7) 04/11/18 06:52 Basophils # 0.0 k/uL (0-0.2) 04/11/18 06:52 Hypochromasia Slight 04/18/18 07:55 PT 9.5 sec (9.0-12.0) 04/10/18 19:10 INR 0.9 (<1.2) 04/10/18 19:10 APTT 21.8 sec (22.0-30.0) L 04/10/18 19:10 Sodium 138 mmol/L (137-145) 04/22/18 07:46 Potassium 4.7 mmol/L (3.5-5.1) 04/22/18 07:46 Chloride 100 mmol/L (98-107) 04/22/18 07:46 Carbon Dioxide 34 mmol/L (22-30) H 04/22/18 07:46 Anion Gap 4 mmol/L 04/22/18 07:46 BUN 38 mg/dL (7-17) H 04/22/18 07:46 Creatinine 0.97 mg/dL (0.52-1.04) 04/22/18 07:46 Est GFR (CKD-EPI)AfAm 70 (>60 ml/min/1.73 sqM) 04/22/18 07:46 Est GFR (CKD-EPI)NonAf 61 (>60 ml/min/1.73 sqM) 04/22/18 07:46 Glucose 111 mg/dL (74-99) H 04/22/18 07:46 POC Glucose (mg/dL) 198 mg/dL (75-99) H 04/23/18 13:46 POC Glu Banana Handler ID Ravindra Hicks 04/23/18 13:[address] Glu mg/dL 148 04/11/18 06:52 Hemoglobin A1c 6.8 % (4.0-6.0) H 04/11/18 06:52 Calcium 8.8 mg/dL (8.4-10.2) 04/22/18 07:46 Phosphorus 3.9 mg/dL (2.5-4.5) 04/22/18 07:46 Magnesium 2.7 mg/dL (1.6-2.3) H 04/22/18 07:46 Total Bilirubin 0.4 mg/dL (0.2-1.3) 04/11/18 06:52 AST 22 U/L (14-36) 04/11/18 06:52 ALT 52 U/L (9-52) 04/11/18 06:52 Alkaline Phosphatase 90 U/L (38-126) 04/11/18 06:52 Total Creatine Kinase <20 U/L (30-135) L 04/10/18 19:10 CK-MB (CK-2) 0.3 ng/mL (0.0-2.4) 04/10/18 19:10 CK-MB (CK-2) Rel Index 04/10/18 19:10 Troponin I <0.012 ng/mL (0.000-0.034) 04/10/18 19:10 NT-Pro-B Natriuret Pep 503 pg/mL 04/10/18 19:10 Total Protein 6.2 g/dL (6.3-8.2) L 04/11/18 06:52 Albumin 3.4 g/dL (3.5-5.0) L 04/11/18 06:52 Urine Color Yellow 04/17/18 18:46 Urine Appearance Turbid (Clear) H 04/17/18 18:46 Urine pH 5.5 (5.0-8.0) 04/17/18 18:46 Ur Specific [place] 1.015 (1.001-1.035) 04/17/18 18:46 Urine Protein 1+ (Negative) H 04/17/18 18:46 Urine Glucose (UA) Negative (Negative) 04/17/18 18:46 Urine Ketones Negative (Negative) 04/17/18 18:46 Urine Blood Moderate (Negative) H 04/17/18 18:46 Urine Nitrite Negative (Negative) 04/17/18 18:46 Urine Bilirubin Negative (Negative) 04/17/18 18:46 Urine Urobilinogen <2.0 mg/dL (<2.0) 04/17/18 18:46 Ur Leukocyte Esterase Large (Negative) H 04/17/18 18:46 Urine RBC 115 /hpf (0-5) H 04/17/18 18:46 Urine WBC 83 /hpf (0-5) H 04/17/18 18:46 Urine Bacteria Many /hpf (None) H 04/17/18 18:46 Urine Yeast (Budding) Many /hpf (None) H 04/17/18 18:46 Influenza Type A RNA Not Detected (Not Detectd) 04/11/18 01:45 Influenza Type B (PCR) Not Detected (Not Detectd) 04/11/18 01:45 Microbiology 04/17/18 18:46 Urine,Voided Urine Culture - Final Escherichia coli Pseudomonas aeruginosa 04/10/18 19:10 Blood Blood Culture - Final No Growth after 144 hours - Imaging and Cardiology Chest x-ray: report reviewed (peristent consolidaiton at bases) Assessment/Plan - Assessment Assessment: 67 year old woman with superobesity and paraplegia continues to feel poorly with ongoing shortness of breath and cough without hemoptysis. The patient's progress is discussed with the guest services representative. Continues to have ongoing symptomatology. There is lack of improvement over the last day. It is noted to consult the patient does have a multidrug resistant urinary tract infection and Monurol has been requested and I believe is given today. The patient is not a good candidate for bronchoscopy although it could be therapeutic is likely that she would end up intubated, which could result in long-term intubation given her current functional status. Patient relates that she does tolerate Zosyn well, and with her lack of current pulmonary improvement this will be added and will monitor her progress. We'll request with the staff if a Summer lift can be obtained so that she is able to get up and sit in a chair at least for some part of the day to improve her pulmonary function.
[2018-04-23 16:59] LABS: Glucose,Whole Blood 145 mg/dL (75-99)
[2018-04-23] MEDS: PIPERACILLIN-TAZOBACTAM 3.375 GM in SODIUM CHLORIDE 0.9% 100 ML IVPB SCH (18:27)
[2018-04-23 20:44] LABS: Glucose,Whole Blood 89 mg/dL (75-99)
[2018-04-23] MEDS: PRAVASTATIN SODIUM 20 MG TAB PO SCH (21:35)
[2018-04-23] MEDS: GABAPENTIN 300 MG CAP PO SCH (21:35)
[2018-04-23] MEDS: MONTELUKAST 10 MG TAB PO SCH (21:35)
[2018-04-23] MEDS: ASPIRIN 81 MG PO SCH (21:35)
[2018-04-23] MEDS: NEOMYCIN-BACITRACIN-POLY OINT 14 GM TUBE TOPICAL SCH (21:36)
[2018-04-23] MEDS: PANTOPRAZOLE 40 MG TABLET PO SCH (21:40)
[2018-04-23] MEDS ORDERED: FLUCONAZOLE 100 MG TAB PO ONE (22:33)
[2018-04-24] MEDS ORDERED: HEPARIN SODIUM,PORCINE 5,000 UNIT/ML 1 ML VIAL ONE
[2018-04-24] MEDS ORDERED: IPRATROPIUM-ALBUTEROL 3 ML NEB ONE ×2
[2018-04-24] MEDS ORDERED: FLUCONAZOLE 100 MG TAB ONE (00:20)
--- NOTE | 2018-04-24 03:13 | PN ---
PROGRESS NOTE DATE OF SERVICE: 04/23/2018. PRESENTING COMPLAINT: Congested cough. INTERVAL HISTORY: Patient presented with acute asthma exacerbation and tracheobronchitis. Eating some diet. Had a bowel movement. Still getting congested cough. The patient has chronic paraplegia. The patient also being treated for UTI. REVIEW OF SYSTEMS: Done for constitutional, cardiovascular, GI, pulmonary; relevant findings as above. CURRENT MEDICATIONS: Reviewed, that include DuoNeb, insulin, IV Zosyn, oral prednisone. PHYSICAL EXAMINATION: Temperature 97.6, pulse 80, respiratory rate 20, blood pressure 147/71, pulse ox 99 percent on 3 L. GENERAL APPEARANCE: Sitting up, awake. EYES: Pupils equal. Conjunctivae normal. HEENT: Oral cavity showing several white spots in the back of the tongue and the pharynx. RESPIRATORY: Effort increased. LUNGS: Diminished breath sounds prolonged expiration, wheezing. CARDIOVASCULAR: First and second sounds normal. Minimal edema. ABDOMEN: Distended, soft. Liver and spleen not palpable. PSYCHIATRY: Alert and oriented x3. Mood and affect anxious-appearing. NEUROLOGICAL: Bilateral lower extremity paresis. INVESTIGATIONS: Accu-Cheks are noted. ASSESSMENT: 1. Acute exacerbation of mild intermittent asthma, slow to respond, from underlying acute tracheobronchitis. 2. Oropharyngeal acute candidiasis secondary to use of prolonged antibiotic and steroid use, explaining some of her symptoms. 3. Chronic hypoxic respiratory failure. 4. Diabetes mellitus type 2, chronically on insulin. 5. Chronic fibromyalgia. 6. Gastroesophageal reflux disease. 7. Hyperlipidemia. 8. Essential hypertension. 9. Primary osteoarthritis. 10.Chronic hypoxic respiratory failure. 11.Morbid obesity, BMI 39.4. 12.Chronic bilateral paraplegia from spinal surgery in 2006. 13.Chronic urinary stress incontinence. 14.Obstructive sleep apnea, uses BiPAP. PLAN: Did talk with the patient. We will start the patient on Diflucan 200 mg starting tonight. This should alleviate some of the symptoms. Dr. Cannon is coordinating the antibiotics. Hopefully with the Diflucan patient should show some improvement in 48 hours. Bronchoscopy with lavage will be faired, but the respiratory compromise could result from the same. MMODL / IJN: [id number] /
[2018-04-24] MEDS: IPRATROPIUM-ALBUTEROL 3 ML NEB INHALATION SCH ×5 (06:17→19:54)
[2018-04-24] MEDS: ACETAMINOPHEN TAB 325 MG TAB PO PRN (06:26)
[2018-04-24] MEDS: SODIUM CHLORIDE 0.9% 1,000 ML IV SCH ×2 (06:34→23:55)
[2018-04-24] MEDS: HEPARIN SODIUM,PORCINE 5,000 UNIT/ML 1 ML VIAL SQ SCH ×4 (06:35→23:53)
[2018-04-24] MEDS: PIPERACILLIN-TAZOBACTAM 3.375 GM in SODIUM CHLORIDE 0.9% 100 ML IVPB SCH ×4 (06:35→23:52)
[2018-04-24 07:07] LABS: Glucose,Whole Blood 160 mg/dL (75-99)
[2018-04-24] MEDS: FORMOTEROL FUMARATE 20 MCG/2 ML NEBU INHALATION SCH ×2 (07:47→19:54)
[2018-04-24] MEDS: BUDESONIDE 1 MG/2 ML NEBU INHALATION SCH ×2 (07:48→19:54)
[2018-04-24] MEDS: INSULIN ASPART 100 UNIT/ML 1 ML 10 ML VIAL SQ SCH ×7 (07:55→20:40)
[2018-04-24] MEDS: INSULIN DETEMIR 100 UNIT/ML 10 ML VIAL SQ SCH ×2 (07:56→20:40)
[2018-04-24] MEDS: predniSONE 20 MG TAB PO SCH (07:57)
[2018-04-24] MEDS: amLODIPine 10 MG TAB PO SCH (07:58)
[2018-04-24] MEDS: FUROSEMIDE 40 MG TAB PO SCH (07:58)
[2018-04-24] MEDS: LORATADINE 10 MG TAB PO SCH (07:58)
[2018-04-24] MEDS: CITALOPRAM HYDROBROMIDE 10 MG TAB PO SCH (07:58)
[2018-04-24] MEDS: BACLOFEN 10 MG TAB PO SCH ×2 (07:58→20:39)
[2018-04-24] MEDS: FLUCONAZOLE 150 MG TAB PO SCH (08:00)
[2018-04-24 10:36] VITALS: BMI 59.4
[2018-04-24 11:04] LABS: Glucose,Whole Blood 222 mg/dL (75-99)
[2018-04-24] MEDS: FERROUS SULFATE 325 MG TAB PO SCH (13:15)
[2018-04-24] MEDS: ASCORBIC ACID 500 MG TAB PO SCH (13:15)
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
[2018-04-24 17:34] LABS: Glucose,Whole Blood 229 mg/dL (75-99)
[2018-04-24 20:30] LABS: Glucose,Whole Blood 230 mg/dL (75-99)
[2018-04-24] MEDS: MONTELUKAST 10 MG TAB PO SCH (20:39)
[2018-04-24] MEDS: PANTOPRAZOLE 40 MG TABLET PO SCH (20:39)
[2018-04-24] MEDS: ASPIRIN 81 MG PO SCH (20:39)
[2018-04-24] MEDS: GABAPENTIN 300 MG CAP PO SCH (20:39)
[2018-04-24] MEDS: PRAVASTATIN SODIUM 20 MG TAB PO SCH (20:40)
[2018-04-24] MEDS: NEOMYCIN-BACITRACIN-POLY OINT 14 GM TUBE TOPICAL SCH (20:40)
[2018-04-25] MEDS: ACETAMINOPHEN TAB 325 MG TAB PO PRN ×2 (00:27→20:37)
[2018-04-25] MEDS: IPRATROPIUM-ALBUTEROL 3 ML NEB INHALATION SCH ×7 (00:32→23:30)
--- NOTE | 2018-04-25 00:42 | PN ---
PROGRESS NOTE DATE OF SERVICE: 04/24/2018. PRESENTING COMPLAINT: Congested cough. INTERVAL HISTORY: Patient presented with acute asthma exacerbation, tracheobronchitis, and also UTI. Also found to have oral candidiasis. Throat discomfort is actually better today. Able to bring up some sputum. Tolerating a diet. Sitting up on bed. The patient has chronic paraplegia. REVIEW OF SYSTEMS: Done for constitutional, cardiovascular, GI, pulmonary; relevant findings as above. CURRENT MEDICATIONS: Reviewed, that include IV Zosyn, oral prednisone, p.o. Lasix, Diflucan. PHYSICAL EXAMINATION: Temperature 98.3, pulse 83, respirations 20, blood pressure 151/67, pulse 95 percent on 3 L. GENERAL APPEARANCE: Sitting up, awake. EYES: Pupils equal. Conjunctivae normal. HEENT: Pharyngeal area showing decreased white spots. Respiratory effort increased. LUNGS: Decreased breath sounds. Prolonged expiration. Some wheezing. CARDIOVASCULAR: 1st and 2nd heart sounds are normal. Minimal edema. ABDOMEN: Distended, soft. Liver and spleen not palpable. PSYCHIATRY: Alert and oriented x3. Mood and affect normal. NEUROLOGIC: Bilateral lower extremity paresis. INVESTIGATIONS: Accu-Cheks are noted. ASSESSMENT: 1. Acute exacerbation of mild intermittent asthma, slow to respond, from underlying acute tracheobronchitis. 2. Acute oropharyngeal candidiasis with some response to Diflucan. 3. Chronic hypoxic respiratory failure. 4. Diabetes mellitus type 2, chronically on insulin uncontrolled with hyperglycemia. 5. Chronic fibromyalgia. 6. Hyperlipidemia. 7. Essential hypertension. 8. Primary osteoarthritis. 9. Chronic hypoxic respiratory failure. 10.Morbid obesity BMI 39.4. 11.Chronic bilateral paraplegia from spinal surgery in 2006. 12.Chronic urinary stress incontinence. 13.Obstructive sleep apnea uses BiPAP. PLAN: Care was discussed with the patient. Also discussed with Dr. Perkins. Given patient's pulmonary status, he is a high risk of bronchoscopy in terms of going on the ventilator. The patient is showing some improvement of symptoms. I do expect Diflucan to make it better. In the meantime, patient's oxygen is being humidified. We will see how the patient does for the same. Also cut back on the dose of prednisone. MMODL / IJN: [id number] /
[2018-04-25 02:28] LABS: Glucose,Whole Blood 87 mg/dL (75-99)
[2018-04-25 07:02] LABS: Glucose,Whole Blood 61 mg/dL (75-99)
[2018-04-25] MEDS: INSULIN ASPART 100 UNIT/ML 1 ML 10 ML VIAL SQ SCH ×7 (07:15→22:03)
[2018-04-25 07:16] LABS: Glucose,Whole Blood 76 mg/dL (75-99)
[2018-04-25] MEDS: FERROUS SULFATE 325 MG TAB PO SCH (07:55)
[2018-04-25] MEDS: LORATADINE 10 MG TAB PO SCH (07:55)
[2018-04-25] MEDS: predniSONE 10 MG TAB PO SCH (07:55)
[2018-04-25] MEDS: CITALOPRAM HYDROBROMIDE 10 MG TAB PO SCH (07:55)
[2018-04-25] MEDS: BACLOFEN 10 MG TAB PO SCH ×2 (07:56→20:36)
[2018-04-25] MEDS: FLUCONAZOLE 150 MG TAB PO SCH (07:56)
[2018-04-25] MEDS: ASCORBIC ACID 500 MG TAB PO SCH (07:56)
[2018-04-25] MEDS: HEPARIN SODIUM,PORCINE 5,000 UNIT/ML 1 ML VIAL SQ SCH ×2 (07:56→16:13)
[2018-04-25] MEDS: FUROSEMIDE 40 MG TAB PO SCH (07:56)
[2018-04-25] MEDS: amLODIPine 10 MG TAB PO SCH (07:56)
[2018-04-25] MEDS: FORMOTEROL FUMARATE 20 MCG/2 ML NEBU INHALATION SCH ×2 (07:57→18:55)
[2018-04-25] MEDS: BUDESONIDE 1 MG/2 ML NEBU INHALATION SCH ×2 (07:57→18:55)
[2018-04-25] MEDS: INSULIN DETEMIR 100 UNIT/ML 10 ML VIAL SQ SCH ×2 (07:58→22:03)
[2018-04-25] MEDS: PIPERACILLIN-TAZOBACTAM 3.375 GM in SODIUM CHLORIDE 0.9% 100 ML IVPB SCH ×2 (08:01→16:13)
[2018-04-25 11:14] LABS: Glucose,Whole Blood 194 mg/dL (75-99)
[2018-04-25 17:24] LABS: Glucose,Whole Blood 235 mg/dL (75-99)
--- NOTE | 2018-04-25 19:31 | PN ---
PROGRESS NOTE DATE OF SERVICE: 04/25/2018 PRESENTING COMPLAINT: Cough. INTERVAL HISTORY: Patient presented with acute asthma exacerbation, acute tracheobronchitis, UTI, also oral candidiasis. Doing much better. Throat discomfort is getting better. Bringing up sputum. Overall feeling much better. Patient has chronic paraplegia. REVIEW OF SYSTEMS: Done for constitutional, cardiovascular, GI, pulmonary; relevant findings as above. CURRENT MEDICATIONS: Reviewed. They include: 1. Diflucan 150 mg a day. 2. Oral Lasix. 3. Levemir. 4. IV Zosyn. PHYSICAL EXAMINATION: Temperature 97.9, pulse 83, respiration 20, blood pressure 141/65 pulse ox 94% on 3 L. GENERAL APPEARANCE: Sitting up, feeling better. EYES: Pupils equal. Conjunctivae normal. HEENT: White spots nearly resolved in the pharynx. RESPIRATORY: Effort increased. LUNGS: Improved air entry. Prolonged expiration. Minimal wheezing. CARDIOVASCULAR: First and second sounds normal. Minimal edema. ABDOMEN: Distended, soft. Liver and spleen not palpable. PSYCHIATRY: Alert and oriented x3. Mood and affect appear better. INVESTIGATIONS: Accu-Cheks 61, 76, 194, 235, 235. ASSESSMENT: 1. Acute exacerbation of mild intermittent asthma with fair response from underlying acute tracheobronchitis. 2. Acute oropharyngeal candidiasis, responding to Diflucan. 3. Chronic hypoxic respiratory failure. 4. Diabetes mellitus, type 2, chronically on insulin, uncontrolled with both hypo- and hyperglycemia. 5. Chronic fibromyalgia. 6. Hyperlipidemia. 7. Essential hypertension. 8. Primary osteoarthritis. 9. Chronic hypoxic respiratory failure. 10.Morbid obesity; body mass index 39.4. 11.Chronic bilateral paraplegia from spinal surgery in 2006. 12.Chronic urinary stress incontinence. 13.Obstructive sleep apnea. Uses BiPAP. PLAN: Discussed with Dr. Perkins. Patient overall has done better. Patient was asking about a port. Will discuss with Dr. Cannon about the same. Given that she was acutely infected, this was not a good time of course to do the same. Patient's dose of Levemir will be cut back. I will increase the dose of NovoLog, though. MMODL / IJN: [id number] /
[2018-04-25 20:35] LABS: Glucose,Whole Blood 232 mg/dL (75-99)
[2018-04-25] MEDS: ASPIRIN 81 MG PO SCH (20:36)
[2018-04-25] MEDS: MONTELUKAST 10 MG TAB PO SCH (20:37)
[2018-04-25] MEDS: PANTOPRAZOLE 40 MG TABLET PO SCH (20:37)
[2018-04-25] MEDS: GABAPENTIN 300 MG CAP PO SCH (20:37)
[2018-04-25] MEDS: PRAVASTATIN SODIUM 20 MG TAB PO SCH (20:37)
[2018-04-25] MEDS: NEOMYCIN-BACITRACIN-POLY OINT 14 GM TUBE TOPICAL SCH (20:37)
[2018-04-26] MEDS: SODIUM CHLORIDE 0.9% 1,000 ML IV SCH ×2 (00:21→21:26)
[2018-04-26] MEDS: HEPARIN SODIUM,PORCINE 5,000 UNIT/ML 1 ML VIAL SQ SCH ×4 (00:21→23:36)
[2018-04-26] MEDS: PIPERACILLIN-TAZOBACTAM 3.375 GM in SODIUM CHLORIDE 0.9% 100 ML IVPB SCH ×4 (00:21→23:38)
[2018-04-26] MEDS: ACETAMINOPHEN TAB 325 MG TAB PO PRN (03:05)
[2018-04-26 03:08] LABS: Glucose,Whole Blood 146 mg/dL (75-99)
[2018-04-26] MEDS: IPRATROPIUM-ALBUTEROL 3 ML NEB INHALATION SCH ×6 (03:44→23:24)
[2018-04-26 06:57] LABS: Glucose,Whole Blood 83 mg/dL (75-99)
[2018-04-26] MEDS: FORMOTEROL FUMARATE 20 MCG/2 ML NEBU INHALATION SCH ×2 (07:25→19:59)
[2018-04-26] MEDS: BUDESONIDE 1 MG/2 ML NEBU INHALATION SCH ×2 (07:25→19:59)
[2018-04-26] MEDS: FUROSEMIDE 40 MG TAB PO SCH (09:26)
[2018-04-26] MEDS: FERROUS SULFATE 325 MG TAB PO SCH (09:26)
[2018-04-26] MEDS: INSULIN ASPART 100 UNIT/ML 1 ML 10 ML VIAL SQ SCH ×7 (09:26→20:40)
[2018-04-26] MEDS: amLODIPine 10 MG TAB PO SCH (09:26)
[2018-04-26] MEDS: predniSONE 10 MG TAB PO SCH (09:26)
[2018-04-26] MEDS: CITALOPRAM HYDROBROMIDE 10 MG TAB PO SCH (09:26)
[2018-04-26] MEDS: BACLOFEN 10 MG TAB PO SCH ×2 (09:26→20:37)
[2018-04-26] MEDS: FLUCONAZOLE 150 MG TAB PO SCH (09:29)
[2018-04-26 11:03] LABS: Glucose,Whole Blood 81 mg/dL (75-99)
[2018-04-26] MEDS: ERGOCALCIFEROL 50,000 UNIT CAP PO SCH (12:53)
[2018-04-26] MEDS: ASCORBIC ACID 500 MG TAB PO SCH (12:53)
--- NOTE | 2018-04-26 15:54 | P.PN ---
Subjective Progress Note Date: 04/26/18 Principal diagnosis: Constipation Patient on to our service. We are now consulted for Port-A-Cath placement. Patient is poor IV access requires home on antibiotics. She has had 2 previous Garza catheters in the past. Objective - Vital Signs Vital signs: Vital Signs Temp 98.3 F 04/26/18 12:33 Pulse 78 04/26/18 15:47 Resp 18 04/26/18 12:33 BP 148/70 04/26/18 12:33 Pulse Ox 97 04/26/18 12:33 Intake & Output 04/25/18 04/26/18 04/26/18 18:59 06:59 18:59 Intake Total 260 360 160 Output Total 3800 Balance 260 -3440 160 Intake: IV 160 160 160 Sodium Chloride 0.9% 1, 160 160 160 000 ml @ 20 mls/hr IV . Q24H ANNE Rx#:[id number] Intake, IV Titration 100 200 Amount Piperacillin-Tazobactam 3 100 200 .375 gm In Sodium Chloride 0.9% 100 ml @ 25 mls/hr IVPB Q8HR ANNE Rx# :[id number] Output: Urine 3800 Uretheral (Stallings) 3800 Other: Voiding Method Indwelling Catheter Indwelling Catheter Indwelling Catheter - Exam Chest with scattered rales, previous scarring from Garza - Labs CBC & Chem 7: 04/21/18 08:25 04/22/18 07:46 Labs: Abnormal Lab Results - Last 24 Hours (Table) 04/25/18 04/25/18 04/26/18 Range/Units 17:21 20:34 03:07 POC Glucose (mg/dL) 235 H 232 H 146 H (75-99) mg/dL Assessment and Plan (1) Constipation Narrative/Plan: Patient and I discussed the options. We will proceed with Port-A-Cath placement on Sunday. Risks of bleeding, infection, DVT, pneumothorax, catheter malfunction and flipping, anesthesia related complications were discussed. The patient understands and wishes to proceed. Current Visit: Yes Status: Chronic Code(s): K59.00 - CONSTIPATION, UNSPECIFIED SNOMED Code(s): 51441293
[2018-04-26 17:04] LABS: Glucose,Whole Blood 233 mg/dL (75-99)
[2018-04-26 20:15] LABS: Glucose,Whole Blood 303 mg/dL (75-99)
[2018-04-26] MEDS: GABAPENTIN 300 MG CAP PO SCH (20:37)
[2018-04-26] MEDS: PRAVASTATIN SODIUM 20 MG TAB PO SCH (20:37)
[2018-04-26] MEDS: MONTELUKAST 10 MG TAB PO SCH (20:37)
[2018-04-26] MEDS: PANTOPRAZOLE 40 MG TABLET PO SCH (20:37)
[2018-04-26] MEDS: ASPIRIN 81 MG PO SCH (20:37)
[2018-04-26] MEDS: NEOMYCIN-BACITRACIN-POLY OINT 14 GM TUBE TOPICAL SCH (20:38)
[2018-04-26] MEDS: MICONAZOLE 2% VAGINAL CREAM 45 GM TUBE/KIT VAGINAL SCH (21:26)
[2018-04-26] MEDS: INSULIN DETEMIR 100 UNIT/ML 10 ML VIAL SQ SCH (21:26)
--- NOTE | 2018-04-26 23:23 | P.PN ---
Subjective Progress Note Date: 04/26/18 67-year-old woman known to the service was not been hospitalized for 12 days who is developed evidence of multidrug resistant urinary tract infection. The patient has a chronic Stallings catheter in place. He has noted urinalysis is markedly abnormal and the patient continues to feel poorly. However symptoms are mostly related to her poor pulmonary status. She was she's been doing poorly over the last 6 weeks. She relates that her pulmonary status is considerably better in the summer months. She's undergone ALLERGY sensitization in the past and states that recent testing did not find reasons for this to be utilized again. It is noted she has many ALLERGIES which is certainly challenging when she becomes quite ill. At this time as the markedly abnormal urinalysis and likely urinary infection, the novel agent fosfomycin will be utilized which hopefully will be able to resolve her current urinary infection. Suggest that urinalysis and culture repeated in a week, and retreatment with fosfomycin can be done in the outpatient setting if needed. Pulmonology has evaluated him believe she is ready for discharge to home with stabilization of her pulmonary status. We discussed the importance of her home CPAP, to ensure that she is using that whenever she sleeping even resting and napping throughout the day. She is to ensure that she is cleaning the tubing and the mask and the water reservoir at least on a weekly basis with her detergent such as Rose in warm water, and then allowed to dry well. She relates that she has more than once a tubing more than one mask, which is ideal so that while the tubing and mask is drying she has another to use. After discharge she has great difficulties with follow-up appointments due to her paraplegia, but certainly would be worthwhile to follow up with the metalsmith in the outpatient setting to ensure that her status has been optimized. We'll work with homecare nurse for a follow-up urinalysis and culture in a week and retreatment if needed. 04/23/2018 patient continues to have difficulties with her pulmonary status. Continues to have wheezing some minimal cough and sputum production and no hemoptysis. She feels weak but improved since admission, not at baseline. 04/26/2018 patient is now finally starting to feel slightly better since the addition of piperacillin tazobactam to the antibiotic regimen. She slightly less short of breath, she's having less wheezing less cough. There attempting to move her more in the bed to improve her on urinary hygiene. Continue to wear her CPAP when she is sleeping and napping. Objective - Vital Signs Vital signs: Vital Signs Temp 97.6 F 04/26/18 21:00 Pulse 89 04/26/18 21:00 Resp 18 04/26/18 21:00 BP 158/72 04/26/18 21:00 Pulse Ox 96 04/26/18 21:00 Intake & Output 04/26/18 04/26/18 04/27/18 06:59 18:59 06:59 Intake Total 360 160 240 Output Total 3800 1100 1200 Balance -3440 -940 -960 Intake: IV 160 160 Sodium Chloride 0.9% 1, 160 160 000 ml @ 20 mls/hr IV . Q24H ANNE Rx#:[id number] Intake, IV Titration 200 Amount Piperacillin-Tazobactam 3 200 .375 gm In Sodium Chloride 0.9% 100 ml @ 25 mls/hr IVPB Q8HR ANNE Rx# :[id number] Oral 240 Output: Urine 3800 1100 1200 Uretheral (Stallings) 3800 Other: Voiding Method Indwelling Catheter Indwelling Catheter # Bowel Movements 1 - Exam Gen: This is a super morbid obese 67-year-old female. She is sitting up in bed and eating lunch without any difficulty. No respiratory distress is noted. HEENT: Head is atraumatic, normocephalic. Pupils equal, round. Sclerae is anicteric. Conjunctiva pink. Mucous murmurs of the mouth are moist. Patient has dentures in place. NECK: Supple. No JVD. No lymphadenopathy. No thyromegaly. LUNGS: Diminished bilaterally scattered wheezes few crackles at bases HEART: Regular rate and rhythm. No murmur. ABDOMEN: Morbidly obese. Soft. Bowel sounds are present. No masses. No tenderness. Stallings catheter draining clear manny urine. EXTREMITIES: Trace bilateral pedal edema. No calf tenderness. SCDs in place. Resolution of erythema to the right lower extremity. Lower extremity paraplegia. NEUROLOGICAL: Patient is awake, alert and oriented x3. Generalized weakness noted. - Labs CBC & Chem 7: 04/21/18 08:25 04/22/18 07:46 Labs: Abnormal Lab Results - Last 24 Hours (Table) 04/26/18 04/26/18 04/26/18 Range/Units 03:07 17:03 20:13 POC Glucose (mg/dL) 146 H 233 H 303 H (75-99) mg/dL Laboratory Results WBC 10.0 k/uL (3.8-10.6) 04/21/18 08:25 RBC 3.86 m/uL (3.80-5.40) 04/21/18 08:25 Hgb 11.2 gm/dL (11.4-16.0) L 04/21/18 08:25 Hct 36.6 % (34.0-46.0) 04/21/18 08:25 MCV 94.9 fL (80.0-100.0) 04/21/18 08:25 MCH 29.0 pg (25.0-35.0) 04/21/18 08:25 MCHC 30.6 g/dL (31.0-37.0) L 04/21/18 08:25 RDW 14.7 % (11.5-15.5) 04/21/18 08:25 Plt Count 246 k/uL (150-450) 04/21/18 08:25 Neutrophils % 84 % 04/11/18 06:52 Lymphocytes % 10 % 04/11/18 06:52 Monocytes % 2 % 04/11/18 06:52 Eosinophils % 3 % 04/11/18 06:52 Basophils % 0 % 04/11/18 06:52 Neutrophils # 2.9 k/uL (1.3-7.7) 04/11/18 06:52 Lymphocytes # 0.3 k/uL (1.0-4.8) L 04/11/18 06:52 Monocytes # 0.1 k/uL (0-1.0) 04/11/18 06:52 Eosinophils # 0.1 k/uL (0-0.7) 04/11/18 06:52 Basophils # 0.0 k/uL (0-0.2) 04/11/18 06:52 Hypochromasia Slight 04/18/18 07:55 PT 9.5 sec (9.0-12.0) 04/10/18 19:10 INR 0.9 (<1.2) 04/10/18 19:10 APTT 21.8 sec (22.0-30.0) L 04/10/18 19:10 Sodium 138 mmol/L (137-145) 04/22/18 07:46 Potassium 4.7 mmol/L (3.5-5.1) 04/22/18 07:46 Chloride 100 mmol/L (98-107) 04/22/18 07:46 Carbon Dioxide 34 mmol/L (22-30) H 04/22/18 07:46 Anion Gap 4 mmol/L 04/22/18 07:46 BUN 38 mg/dL (7-17) H 04/22/18 07:46 Creatinine 0.97 mg/dL (0.52-1.04) 04/22/18 07:46 Est GFR (CKD-EPI)AfAm 70 (>60 ml/min/1.73 sqM) 04/22/18 07:46 Est GFR (CKD-EPI)NonAf 61 (>60 ml/min/1.73 sqM) 04/22/18 07:46 Glucose 111 mg/dL (74-99) H 04/22/18 07:46 POC Glucose (mg/dL) 303 mg/dL (75-99) H 04/26/18 20:13 POC Glu Salon Professional ID 04/26/18 20:[address] Glu mg/dL 148 04/11/18 06:52 Hemoglobin A1c 6.8 % (4.0-6.0) H 04/11/18 06:52 Calcium 8.8 mg/dL (8.4-10.2) 04/22/18 07:46 Phosphorus 3.9 mg/dL (2.5-4.5) 04/22/18 07:46 Magnesium 2.7 mg/dL (1.6-2.3) H 04/22/18 07:46 Total Bilirubin 0.4 mg/dL (0.2-1.3) 04/11/18 06:52 AST 22 U/L (14-36) 04/11/18 06:52 ALT 52 U/L (9-52) 04/11/18 06:52 Alkaline Phosphatase 90 U/L (38-126) 04/11/18 06:52 Total Creatine Kinase <20 U/L (30-135) L 04/10/18 19:10 CK-MB (CK-2) 0.3 ng/mL (0.0-2.4) 04/10/18 19:10 CK-MB (CK-2) Rel Index 04/10/18 19:10 Troponin I <0.012 ng/mL (0.000-0.034) 04/10/18 19:10 NT-Pro-B Natriuret Pep 503 pg/mL 04/10/18 19:10 Total Protein 6.2 g/dL (6.3-8.2) L 04/11/18 06:52 Albumin 3.4 g/dL (3.5-5.0) L 04/11/18 06:52 Urine Color Yellow 04/17/18 18:46 Urine Appearance Turbid (Clear) H 04/17/18 18:46 Urine pH 5.5 (5.0-8.0) 04/17/18 18:46 Ur Specific [place] 1.015 (1.001-1.035) 04/17/18 18:46 Urine Protein 1+ (Negative) H 04/17/18 18:46 Urine Glucose (UA) Negative (Negative) 04/17/18 18:46 Urine Ketones Negative (Negative) 04/17/18 18:46 Urine Blood Moderate (Negative) H 04/17/18 18:46 Urine Nitrite Negative (Negative) 04/17/18 18:46 Urine Bilirubin Negative (Negative) 04/17/18 18:46 Urine Urobilinogen <2.0 mg/dL (<2.0) 04/17/18 18:46 Ur Leukocyte Esterase Large (Negative) H 04/17/18 18:46 Urine RBC 115 /hpf (0-5) H 04/17/18 18:46 Urine WBC 83 /hpf (0-5) H 04/17/18 18:46 Urine Bacteria Many /hpf (None) H 04/17/18 18:46 Urine Yeast (Budding) Many /hpf (None) H 04/17/18 18:46 Influenza Type A RNA Not Detected (Not Detectd) 04/11/18 01:45 Influenza Type B (PCR) Not Detected (Not Detectd) 04/11/18 01:45 Microbiology 04/17/18 18:46 Urine,Voided Urine Culture - Final Escherichia coli Pseudomonas aeruginosa 04/10/18 19:10 Blood Blood Culture - Final No Growth after 144 hours Assessment and Plan (1) Pseudomonas urinary tract infection Narrative/Plan: 67 year old woman with superobesity and paraplegia continues to feel poorly with ongoing shortness of breath and cough without hemoptysis. The patient's progress is discussed with the metalsmith. Continues to have ongoing symptomatology. There is lack of improvement over the last day. It is noted to consult the patient does have a multidrug resistant urinary tract infection and Monurol has been requested and I believe is given today. The patient is not a good candidate for bronchoscopy although it could be therapeutic is likely that she would end up intubated, which could result in long-term intubation given her current functional status. Patient relates that she does tolerate Zosyn well, and with her lack of current pulmonary improvement this will be added and will monitor her progress. We'll request with the staff if a Summer lift can be obtained so that she is able to get up and sit in a chair at least for some part of the day to improve her pulmonary function. 04/26/2018 patient is finally starting to feel a bit better. Addition of Zosyn allowed improvement of her severe pulmonary symptoms is still having some mild burning with the urine. We'll plan a course of intravenous antibiotic therapy with Zosyn for her complex pneumonia. Monurol was given on Sunday for repeat dose can be given on Sunday for her multidrug resistant pathogens of her urine. We'll have her port placed on Sunday and likely discharged home. Current Visit: Yes Status: Acute Code(s): N39.0 - URINARY TRACT INFECTION, SITE NOT SPECIFIED; B96.5 - PSEUDOMONAS (MALLEI) CAUSING DISEASES [facility] SNOMED Code(s): 623831384 (2) Pneumonia Current Visit: No Status: Acute Code(s): J18.9 - PNEUMONIA, UNSPECIFIED ORGANISM SNOMED Code(s): 000255276
--- NOTE | 2018-04-27 02:35 | PN ---
PROGRESS NOTE DATE OF SERVICE: 04/26/2018 PRESENTING COMPLAINT: Cough. INTERVAL HISTORY: The patient with acute asthma exacerbation, acute tracheobronchitis, UTI, oral candidiasis. Overall doing much better. The patient is pending a Port-A-Cath placement that was decided finally will be done on Sunday. In the meantime, patient overall doing overall doing much better, tolerating a diet. The patient has chronic paraplegia. REVIEW OF SYSTEMS: Done for constitutional, cardiovascular, GI, pulmonary; relevant findings as above. CURRENT MEDICATIONS: Reviewed, they include IV Zosyn. PHYSICAL EXAMINATION: Temperature 98.3 pulse 84, respiration 18, blood pressure 140/70, pulse ox 97% on 3 L. GENERAL APPEARANCE: Sitting up, feeling better. EYES: Pupils equal. Conjunctivae normal. NECK: Unable to assess. Mass not palpable. Respiratory effort increased. LUNGS: Decreased breath sounds. Improved air entry. ORAL CAVITY: No white spot. CARDIOVASCULAR: First and second sounds normal. Minimal edema. ABDOMEN: Distended, soft. Liver and spleen not palpable. PSYCHIATRY: Alert and oriented x3. Mood and affect normal. INVESTIGATIONS: Accu-Cheks are noted. ASSESSMENT: 1. Acute exacerbation of mild intermittent asthma with fair response from underlying acute tracheobronchitis. 2. Acute oropharyngeal candidiasis, responding well to Diflucan. 3. Chronic hypoxic respiratory failure. 4. Diabetes mellitus type 2, chronically on insulin, uncontrolled with both hypo- and hyperglycemia. 5. Chronic fibromyalgia. 6. Hyperlipidemia. 7. Essential hypertension. 8. Primary osteoarthritis. 9. Chronic hypoxic respiratory failure. 10.Morbid obesity, BMI 39.4. 11.Chronic bilateral paraplegia from spinal surgery 2006. 12.Chronic urinary stress incontinence. 13.Obstructive sleep apnea, uses BiPAP. 14.Acute urinary tract infection with the Escherichia coli with ESBL and Pseudomonas. PLAN: Continue current medication and treatment plan. Await port placement on Sunday by Dr. Alarcon. In the meantime, antibiotics to continue per Dr. Cannon. Overall, patient has done much better. MMODL / IJN: [id number] /
[2018-04-27] MEDS: IPRATROPIUM-ALBUTEROL 3 ML NEB INHALATION SCH ×6 (03:45→23:50)
[2018-04-27 06:39] LABS: Glucose,Whole Blood 137 mg/dL (75-99)
[2018-04-27] MEDS: BUDESONIDE 1 MG/2 ML NEBU INHALATION SCH ×2 (07:21→20:07)
[2018-04-27] MEDS: FORMOTEROL FUMARATE 20 MCG/2 ML NEBU INHALATION SCH ×2 (07:21→20:07)
[2018-04-27] MEDS: amLODIPine 10 MG TAB PO SCH (08:15)
[2018-04-27] MEDS: PIPERACILLIN-TAZOBACTAM 3.375 GM in SODIUM CHLORIDE 0.9% 100 ML IVPB SCH ×2 (08:15→15:54)
[2018-04-27] MEDS: FUROSEMIDE 40 MG TAB PO SCH (08:15)
[2018-04-27] MEDS: predniSONE 10 MG TAB PO SCH (08:15)
[2018-04-27] MEDS: CITALOPRAM HYDROBROMIDE 10 MG TAB PO SCH (08:15)
[2018-04-27] MEDS: HEPARIN SODIUM,PORCINE 5,000 UNIT/ML 1 ML VIAL SQ SCH ×3 (08:15→22:27)
[2018-04-27] MEDS: BACLOFEN 10 MG TAB PO SCH ×2 (08:15→22:25)
[2018-04-27] MEDS: INSULIN ASPART 100 UNIT/ML 1 ML 10 ML VIAL SQ SCH ×6 (08:16→17:51)
[2018-04-27] MEDS: FLUCONAZOLE 150 MG TAB PO SCH (08:17)
[2018-04-27 11:09] LABS: Glucose,Whole Blood 136 mg/dL (75-99)
[2018-04-27] MEDS: ASCORBIC ACID 500 MG TAB PO SCH (12:15)
[2018-04-27] MEDS: FERROUS SULFATE 325 MG TAB PO SCH (12:16)
[2018-04-27] MEDS: MICONAZOLE 2% VAGINAL CREAM 45 GM TUBE/KIT VAGINAL SCH (14:03)
--- NOTE | 2018-04-27 16:00 | P.PN ---
Subjective Progress Note Date: 04/27/18 67-year-old woman known to the service was not been hospitalized for 12 days who is developed evidence of multidrug resistant urinary tract infection. The patient has a chronic Stallings catheter in place. He has noted urinalysis is markedly abnormal and the patient continues to feel poorly. However symptoms are mostly related to her poor pulmonary status. She was she's been doing poorly over the last 6 weeks. She relates that her pulmonary status is considerably better in the summer months. She's undergone ALLERGY sensitization in the past and states that recent testing did not find reasons for this to be utilized again. It is noted she has many ALLERGIES which is certainly challenging when she becomes quite ill. At this time as the markedly abnormal urinalysis and likely urinary infection, the novel agent fosfomycin will be utilized which hopefully will be able to resolve her current urinary infection. Suggest that urinalysis and culture repeated in a week, and retreatment with fosfomycin can be done in the outpatient setting if needed. Pulmonology has evaluated him believe she is ready for discharge to home with stabilization of her pulmonary status. We discussed the importance of her home CPAP, to ensure that she is using that whenever she sleeping even resting and napping throughout the day. She is to ensure that she is cleaning the tubing and the mask and the water reservoir at least on a weekly basis with her detergent such as Rose in warm water, and then allowed to dry well. She relates that she has more than once a tubing more than one mask, which is ideal so that while the tubing and mask is drying she has another to use. After discharge she has great difficulties with follow-up appointments due to her paraplegia, but certainly would be worthwhile to follow up with the control supervisor in the outpatient setting to ensure that her status has been optimized. We'll work with homecare nurse for a follow-up urinalysis and culture in a week and retreatment if needed. 04/23/2018 patient continues to have difficulties with her pulmonary status. Continues to have wheezing some minimal cough and sputum production and no hemoptysis. She feels weak but improved since admission, not at baseline. 04/26/2018 patient is now finally starting to feel slightly better since the addition of piperacillin tazobactam to the antibiotic regimen. She slightly less short of breath, she's having less wheezing less cough. There attempting to move her more in the bed to improve her on urinary hygiene. Continue to wear her CPAP when she is sleeping and napping. 04/27/2018 patient is continued to feel somewhat better. Less short of breath. Awaits her port to be placed in that her discharged home. Likely will happen on Sunday. Objective - Vital Signs Vital signs: Vital Signs Temp 98.1 F 04/27/18 12:10 Pulse 77 04/27/18 14:37 Resp 16 04/27/18 14:37 BP 147/67 04/27/18 12:10 Pulse Ox 96 04/27/18 12:10 Intake & Output 04/26/18 04/27/18 04/27/18 18:59 06:59 18:59 Intake Total 457 957 4861 Output Total 1100 1200 4300 Balance -940 370 -6090 Weight 157 kg Intake: IV 160 240 Sodium Chloride 0.9% 1, 160 240 000 ml @ 20 mls/hr IV . Q24H ANNE Rx#:[id number] Intake, IV Titration 200 Amount Piperacillin-Tazobactam 3 200 .375 gm In Sodium Chloride 0.9% 100 ml @ 25 mls/hr IVPB Q8HR ANNE Rx# :[id number] Oral 830 1180 Output: Urine 1100 1200 2750 Stool 1550 Other: Voiding Method Indwelling Catheter Indwelling Catheter Indwelling Catheter # Voids 1 # Bowel Movements 1 1 - Exam Gen: This is a super morbid obese 67-year-old female. She is sitting up in bed and eating lunch without any difficulty. No respiratory distress is noted. HEENT: Head is atraumatic, normocephalic. Pupils equal, round. Sclerae is anicteric. Conjunctiva pink. Mucous murmurs of the mouth are moist. Patient has dentures in place. NECK: Supple. No JVD. No lymphadenopathy. No thyromegaly. LUNGS: Diminished bilaterally scattered wheezes few crackles at bases HEART: Regular rate and rhythm. No murmur. ABDOMEN: Morbidly obese. Soft. Bowel sounds are present. No masses. No tenderness. Stallings catheter draining clear manny urine. EXTREMITIES: Trace bilateral pedal edema. No calf tenderness. SCDs in place. Resolution of erythema to the right lower extremity. Lower extremity paraplegia. NEUROLOGICAL: Patient is awake, alert and oriented x3. Generalized weakness noted. - Labs CBC & Chem 7: 04/21/18 08:25 04/22/18 07:46 Labs: Abnormal Lab Results - Last 24 Hours (Table) 04/26/18 04/26/18 04/27/18 Range/Units 17:03 20:13 06:38 POC Glucose (mg/dL) 233 H 303 H 137 H (75-99) mg/dL 04/27/18 Range/Units 11:07 POC Glucose (mg/dL) 136 H (75-99) mg/dL Laboratory Results WBC 10.0 k/uL (3.8-10.6) 04/21/18 08:25 RBC 3.86 m/uL (3.80-5.40) 04/21/18 08:25 Hgb 11.2 gm/dL (11.4-16.0) L 04/21/18 08:25 Hct 36.6 % (34.0-46.0) 04/21/18 08:25 MCV 94.9 fL (80.0-100.0) 04/21/18 08:25 MCH 29.0 pg (25.0-35.0) 04/21/18 08:25 MCHC 30.6 g/dL (31.0-37.0) L 04/21/18 08:25 RDW 14.7 % (11.5-15.5) 04/21/18 08:25 Plt Count 246 k/uL (150-450) 04/21/18 08:25 Neutrophils % 84 % 04/11/18 06:52 Lymphocytes % 10 % 04/11/18 06:52 Monocytes % 2 % 04/11/18 06:52 Eosinophils % 3 % 04/11/18 06:52 Basophils % 0 % 04/11/18 06:52 Neutrophils # 2.9 k/uL (1.3-7.7) 04/11/18 06:52 Lymphocytes # 0.3 k/uL (1.0-4.8) L 04/11/18 06:52 Monocytes # 0.1 k/uL (0-1.0) 04/11/18 06:52 Eosinophils # 0.1 k/uL (0-0.7) 04/11/18 06:52 Basophils # 0.0 k/uL (0-0.2) 04/11/18 06:52 Hypochromasia Slight 04/18/18 07:55 PT 9.5 sec (9.0-12.0) 04/10/18 19:10 INR 0.9 (<1.2) 04/10/18 19:10 APTT 21.8 sec (22.0-30.0) L 04/10/18 19:10 Sodium 138 mmol/L (137-145) 04/22/18 07:46 Potassium 4.7 mmol/L (3.5-5.1) 04/22/18 07:46 Chloride 100 mmol/L (98-107) 04/22/18 07:46 Carbon Dioxide 34 mmol/L (22-30) H 04/22/18 07:46 Anion Gap 4 mmol/L 04/22/18 07:46 BUN 38 mg/dL (7-17) H 04/22/18 07:46 Creatinine 0.97 mg/dL (0.52-1.04) 04/22/18 07:46 Est GFR (CKD-EPI)AfAm 70 (>60 ml/min/1.73 sqM) 04/22/18 07:46 Est GFR (CKD-EPI)NonAf 61 (>60 ml/min/1.73 sqM) 04/22/18 07:46 Glucose 111 mg/dL (74-99) H 04/22/18 07:46 POC Glucose (mg/dL) 136 mg/dL (75-99) H 04/27/18 11:07 POC Glu Topper Press Operator ID Sujata Alex 04/27/18 11:[address] Glu mg/dL 148 04/11/18 06:52 Hemoglobin A1c 6.8 % (4.0-6.0) H 04/11/18 06:52 Calcium 8.8 mg/dL (8.4-10.2) 04/22/18 07:46 Phosphorus 3.9 mg/dL (2.5-4.5) 04/22/18 07:46 Magnesium 2.7 mg/dL (1.6-2.3) H 04/22/18 07:46 Total Bilirubin 0.4 mg/dL (0.2-1.3) 04/11/18 06:52 AST 22 U/L (14-36) 04/11/18 06:52 ALT 52 U/L (9-52) 04/11/18 06:52 Alkaline Phosphatase 90 U/L (38-126) 04/11/18 06:52 Total Creatine Kinase <20 U/L (30-135) L 04/10/18 19:10 CK-MB (CK-2) 0.3 ng/mL (0.0-2.4) 04/10/18 19:10 CK-MB (CK-2) Rel Index 04/10/18 19:10 Troponin I <0.012 ng/mL (0.000-0.034) 04/10/18 19:10 NT-Pro-B Natriuret Pep 503 pg/mL 04/10/18 19:10 Total Protein 6.2 g/dL (6.3-8.2) L 04/11/18 06:52 Albumin 3.4 g/dL (3.5-5.0) L 04/11/18 06:52 Urine Color Yellow 04/17/18 18:46 Urine Appearance Turbid (Clear) H 04/17/18 18:46 Urine pH 5.5 (5.0-8.0) 04/17/18 18:46 Ur Specific [place] 1.015 (1.001-1.035) 04/17/18 18:46 Urine Protein 1+ (Negative) H 04/17/18 18:46 Urine Glucose (UA) Negative (Negative) 04/17/18 18:46 Urine Ketones Negative (Negative) 04/17/18 18:46 Urine Blood Moderate (Negative) H 04/17/18 18:46 Urine Nitrite Negative (Negative) 04/17/18 18:46 Urine Bilirubin Negative (Negative) 04/17/18 18:46 Urine Urobilinogen <2.0 mg/dL (<2.0) 04/17/18 18:46 Ur Leukocyte Esterase Large (Negative) H 04/17/18 18:46 Urine RBC 115 /hpf (0-5) H 04/17/18 18:46 Urine WBC 83 /hpf (0-5) H 04/17/18 18:46 Urine Bacteria Many /hpf (None) H 04/17/18 18:46 Urine Yeast (Budding) Many /hpf (None) H 04/17/18 18:46 Influenza Type A RNA Not Detected (Not Detectd) 04/11/18 01:45 Influenza Type B (PCR) Not Detected (Not Detectd) 04/11/18 01:45 Microbiology 04/17/18 18:46 Urine,Voided Urine Culture - Final Escherichia coli Pseudomonas aeruginosa 04/10/18 19:10 Blood Blood Culture - Final No Growth after 144 hours Assessment and Plan (1) Pseudomonas urinary tract infection Narrative/Plan: 67 year old woman with superobesity and paraplegia continues to feel poorly with ongoing shortness of breath and cough without hemoptysis. The patient's progress is discussed with the control supervisor. Continues to have ongoing symptomatology. There is lack of improvement over the last day. It is noted to consult the patient does have a multidrug resistant urinary tract infection and Monurol has been requested and I believe is given today. The patient is not a good candidate for bronchoscopy although it could be therapeutic is likely that she would end up intubated, which could result in long-term intubation given her current functional status. Patient relates that she does tolerate Zosyn well, and with her lack of current pulmonary improvement this will be added and will monitor her progress. We'll request with the staff if a Summer lift can be obtained so that she is able to get up and sit in a chair at least for some part of the day to improve her pulmonary function. 04/26/2018 patient is finally starting to feel a bit better. Addition of Zosyn allowed improvement of her severe pulmonary symptoms is still having some mild burning with the urine. We'll plan a course of intravenous antibiotic therapy with Zosyn for her complex pneumonia. Monurol was given on Sunday for repeat dose can be given on Sunday for her multidrug resistant pathogens of her urine. We'll have her port placed on Sunday and likely discharged home. 04/27/2018 reveals the patient to be feeling better. Hopefully with the addition of the vaginal cream improves. Vaginal symptoms. She is less short of breath less cough feeling better. Port to be placed on Sunday Current Visit: Yes Status: Acute Code(s): N39.0 - URINARY TRACT INFECTION, SITE NOT SPECIFIED; B96.5 - PSEUDOMONAS (MALLEI) CAUSING DISEASES CLASSD [facility] SNOMED Code(s): 843361651 (2) Pneumonia Current Visit: No Status: Acute Code(s): J18.9 - PNEUMONIA, UNSPECIFIED ORGANISM SNOMED Code(s): 542332501
[2018-04-27 17:07] LABS: Glucose,Whole Blood 224 mg/dL (75-99)
[2018-04-27 20:13] LABS: Glucose,Whole Blood 225 mg/dL (75-99)
[2018-04-27] MEDS: MONTELUKAST 10 MG TAB PO SCH (22:22)
[2018-04-27] MEDS: GABAPENTIN 300 MG CAP PO SCH (22:23)
[2018-04-27] MEDS: PANTOPRAZOLE 40 MG TABLET PO SCH (22:24)
[2018-04-27] MEDS: ASPIRIN 81 MG PO SCH (22:24)
[2018-04-27] MEDS: INSULIN DETEMIR 100 UNIT/ML 10 ML VIAL SQ SCH (22:25)
[2018-04-28] MEDS: INSULIN ASPART 100 UNIT/ML 1 ML 10 ML VIAL SQ SCH ×8 (00:57→21:01)
[2018-04-28] MEDS: NEOMYCIN-BACITRACIN-POLY OINT 14 GM TUBE TOPICAL SCH ×2 (00:58→21:03)
[2018-04-28] MEDS: PIPERACILLIN-TAZOBACTAM 3.375 GM in SODIUM CHLORIDE 0.9% 100 ML IVPB SCH ×3 (00:59→23:45)
[2018-04-28] MEDS: SODIUM CHLORIDE 0.9% 1,000 ML IV SCH ×2 (00:59→20:59)
[2018-04-28] MEDS: IPRATROPIUM-ALBUTEROL 3 ML NEB INHALATION SCH ×6 (03:48→23:51)
[2018-04-28] MEDS: PRAVASTATIN SODIUM 20 MG TAB PO SCH ×2 (05:45→21:00)
[2018-04-28 06:44] LABS: Glucose,Whole Blood 86 mg/dL (75-99)
--- NOTE | 2018-04-28 07:22 | PN ---
PROGRESS NOTE DATE OF SERVICE: 04/27/2018 PRESENTING COMPLAINT: Cough. INTERVAL HISTORY: This patient presented with acute asthma exacerbation, acute tracheobronchitis, UTI, oral candidiasis; doing better. Awaiting a Port-A-Cath placement to be done on Sunday. Otherwise doing well. Has chronic paraplegia. REVIEW OF SYSTEMS: Done for constitutional, cardiovascular, GI, pulmonary; relevant findings as above. CURRENT MEDICATIONS: Include Diflucan and Zosyn. PHYSICAL EXAMINATION: Temperature 98.1, pulse 77, respirations 16, blood pressure 147/67, pulse ox 96% on 3 L. GENERAL APPEARANCE: Sitting up, awake, comfortable. EYES: Pupils equal. Conjunctivae normal. NECK: JVD not able to assess. Mass not palpable. Respiratory effort increased LUNGS: Decreased breath sounds with improved air entry. CARDIOVASCULAR: First and second sounds normal. Minimal edema. ABDOMEN: Distended, soft. Liver and spleen not palpable. PSYCHIATRY: Alert and oriented x3. Mood and affect normal. INVESTIGATIONS: Accu-Cheks are noted. ASSESSMENT: 1. Acute exacerbation of mild intermittent asthma with fair response from underlying acute tracheobronchitis. 2. Acute oropharyngeal candidiasis, responding well to Diflucan. 3. Chronic hypoxic respiratory failure. 4. Diabetes mellitus type 2, chronically on insulin, uncontrolled with both hypo- and hyperglycemia. 5. Chronic fibromyalgia. 6. Hyperlipidemia. 7. Essential hypertension. 8. Primary osteoarthritis. 9. Chronic hypoxic respiratory failure. 10.Morbid obesity BMI 39.4. 11.Chronic bilateral paraplegia from spinal surgery 2006. 12.Chronic urinary stress incontinence. 13.Obstructive sleep apnea, uses BiPAP. 14.Acute urinary tract infection with E coli with ESBL and Pseudomonas. PLAN: Care was discussed. The patient is stable. Continue antibiotics following Infuse-A- Port placement on Sunday. MMODL / IJN: [id number] /
[2018-04-28] MEDS: amLODIPine 10 MG TAB PO SCH (08:15)
[2018-04-28] MEDS: predniSONE 10 MG TAB PO SCH (08:15)
[2018-04-28] MEDS: HEPARIN SODIUM,PORCINE 5,000 UNIT/ML 1 ML VIAL SQ SCH ×3 (08:15→23:46)
[2018-04-28] MEDS: BACLOFEN 10 MG TAB PO SCH ×2 (08:15→21:00)
[2018-04-28] MEDS: FUROSEMIDE 40 MG TAB PO SCH (08:16)
[2018-04-28] MEDS: CITALOPRAM HYDROBROMIDE 10 MG TAB PO SCH (08:16)
[2018-04-28] MEDS: FLUCONAZOLE 150 MG TAB PO SCH (08:16)
[2018-04-28] MEDS: FORMOTEROL FUMARATE 20 MCG/2 ML NEBU INHALATION SCH ×2 (08:18→19:28)
[2018-04-28] MEDS: BUDESONIDE 1 MG/2 ML NEBU INHALATION SCH ×2 (08:18→19:28)
[2018-04-28] MEDS: MICONAZOLE 2% VAGINAL CREAM 45 GM TUBE/KIT VAGINAL SCH (10:33)
[2018-04-28 11:06] LABS: Glucose,Whole Blood 110 mg/dL (75-99)
[2018-04-28] MEDS: FERROUS SULFATE 325 MG TAB PO SCH (12:11)
[2018-04-28] MEDS: ASCORBIC ACID 500 MG TAB PO SCH (12:11)
--- NOTE | 2018-04-28 14:40 | P.PN ---
Subjective Progress Note Date: 04/28/18 67-year-old woman known to the service was not been hospitalized for 12 days who is developed evidence of multidrug resistant urinary tract infection. The patient has a chronic Stallings catheter in place. He has noted urinalysis is markedly abnormal and the patient continues to feel poorly. However symptoms are mostly related to her poor pulmonary status. She was she's been doing poorly over the last 6 weeks. She relates that her pulmonary status is considerably better in the summer months. She's undergone ALLERGY sensitization in the past and states that recent testing did not find reasons for this to be utilized again. It is noted she has many ALLERGIES which is certainly challenging when she becomes quite ill. At this time as the markedly abnormal urinalysis and likely urinary infection, the novel agent fosfomycin will be utilized which hopefully will be able to resolve her current urinary infection. Suggest that urinalysis and culture repeated in a week, and retreatment with fosfomycin can be done in the outpatient setting if needed. Pulmonology has evaluated him believe she is ready for discharge to home with stabilization of her pulmonary status. We discussed the importance of her home CPAP, to ensure that she is using that whenever she sleeping even resting and napping throughout the day. She is to ensure that she is cleaning the tubing and the mask and the water reservoir at least on a weekly basis with her detergent such as Rose in warm water, and then allowed to dry well. She relates that she has more than once a tubing more than one mask, which is ideal so that while the tubing and mask is drying she has another to use. After discharge she has great difficulties with follow-up appointments due to her paraplegia, but certainly would be worthwhile to follow up with the private pilot in the outpatient setting to ensure that her status has been optimized. We'll work with homecare nurse for a follow-up urinalysis and culture in a week and retreatment if needed. 04/23/2018 patient continues to have difficulties with her pulmonary status. Continues to have wheezing some minimal cough and sputum production and no hemoptysis. She feels weak but improved since admission, not at baseline. 04/26/2018 patient is now finally starting to feel slightly better since the addition of piperacillin tazobactam to the antibiotic regimen. She slightly less short of breath, she's having less wheezing less cough. There attempting to move her more in the bed to improve her on urinary hygiene. Continue to wear her CPAP when she is sleeping and napping. 04/27/2018 patient is continued to feel somewhat better. Less short of breath. Awaits her port to be placed in that her discharged home. Likely will happen on Sunday. 04/28/2018 patient laces that she is felt in a long time. She finally has had a good response to antibiotic therapy and respiratory treatments. She believes the inhaled steroid is more helpful than the MDI steroid. Objective - Vital Signs Vital signs: Vital Signs Temp 98.2 F 04/28/18 05:00 Pulse 80 04/28/18 12:39 Resp 16 04/28/18 11:55 BP 145/78 04/28/18 11:55 Pulse Ox 97 04/28/18 11:55 Intake & Output 04/27/18 04/28/18 04/28/18 18:59 06:59 18:59 Intake Total 1620 480 Output Total 5000 1300 1400 Balance -3380 -820 -1400 Weight 157 kg Intake: IV 240 Sodium Chloride 0.9% 1, 240 000 ml @ 20 mls/hr IV . Q24H ANNE Rx#:[id number] Intake, IV Titration 200 Amount Piperacillin-Tazobactam 3 200 .375 gm In Sodium Chloride 0.9% 100 ml @ 25 mls/hr IVPB Q8HR ANNE Rx# :[id number] Oral 1180 480 Output: Urine 3450 1300 1400 Uretheral (Stallings) 1300 Stool 1550 Other: Voiding Method Indwelling Catheter Indwelling Catheter Indwelling Catheter # Voids 1 # Bowel Movements 1 1 - Exam Gen: This is a super morbid obese 67-year-old female. She is sitting up in bed and eating lunch without any difficulty. No respiratory distress is noted. HEENT: Head is atraumatic, normocephalic. Pupils equal, round. Sclerae is anicteric. Conjunctiva pink. Mucous murmurs of the mouth are moist. Patient has dentures in place. NECK: Supple. No JVD. No lymphadenopathy. No thyromegaly. LUNGS: Diminished bilaterally scattered wheezes few crackles at bases HEART: Regular rate and rhythm. No murmur. ABDOMEN: Morbidly obese. Soft. Bowel sounds are present. No masses. No tenderness. Stallings catheter draining clear manny urine. EXTREMITIES: Trace bilateral pedal edema. No calf tenderness. SCDs in place. Resolution of erythema to the right lower extremity. Lower extremity paraplegia. NEUROLOGICAL: Patient is awake, alert and oriented x3. Generalized weakness noted. - Labs CBC & Chem 7: 04/21/18 08:25 04/22/18 07:46 Labs: Abnormal Lab Results - Last 24 Hours (Table) 04/27/18 04/27/18 04/28/18 Range/Units 17:06 20:12 11:04 POC Glucose (mg/dL) 224 H 225 H 110 H (75-99) mg/dL Laboratory Results WBC 10.0 k/uL (3.8-10.6) 04/21/18 08:25 RBC 3.86 m/uL (3.80-5.40) 04/21/18 08:25 Hgb 11.2 gm/dL (11.4-16.0) L 04/21/18 08:25 Hct 36.6 % (34.0-46.0) 04/21/18 08:25 MCV 94.9 fL (80.0-100.0) 04/21/18 08:25 MCH 29.0 pg (25.0-35.0) 04/21/18 08:25 MCHC 30.6 g/dL (31.0-37.0) L 04/21/18 08:25 RDW 14.7 % (11.5-15.5) 04/21/18 08:25 Plt Count 246 k/uL (150-450) 04/21/18 08:25 Neutrophils % 84 % 04/11/18 06:52 Lymphocytes % 10 % 04/11/18 06:52 Monocytes % 2 % 04/11/18 06:52 Eosinophils % 3 % 04/11/18 06:52 Basophils % 0 % 04/11/18 06:52 Neutrophils # 2.9 k/uL (1.3-7.7) 04/11/18 06:52 Lymphocytes # 0.3 k/uL (1.0-4.8) L 04/11/18 06:52 Monocytes # 0.1 k/uL (0-1.0) 04/11/18 06:52 Eosinophils # 0.1 k/uL (0-0.7) 04/11/18 06:52 Basophils # 0.0 k/uL (0-0.2) 04/11/18 06:52 Hypochromasia Slight 04/18/18 07:55 PT 9.5 sec (9.0-12.0) 04/10/18 19:10 INR 0.9 (<1.2) 04/10/18 19:10 APTT 21.8 sec (22.0-30.0) L 04/10/18 19:10 Sodium 138 mmol/L (137-145) 04/22/18 07:46 Potassium 4.7 mmol/L (3.5-5.1) 04/22/18 07:46 Chloride 100 mmol/L (98-107) 04/22/18 07:46 Carbon Dioxide 34 mmol/L (22-30) H 04/22/18 07:46 Anion Gap 4 mmol/L 04/22/18 07:46 BUN 38 mg/dL (7-17) H 04/22/18 07:46 Creatinine 0.97 mg/dL (0.52-1.04) 04/22/18 07:46 Est GFR (CKD-EPI)AfAm 70 (>60 ml/min/1.73 sqM) 04/22/18 07:46 Est GFR (CKD-EPI)NonAf 61 (>60 ml/min/1.73 sqM) 04/22/18 07:46 Glucose 111 mg/dL (74-99) H 04/22/18 07:46 POC Glucose (mg/dL) 110 mg/dL (75-99) H 04/28/18 11:04 POC Glu Ring Conductor ID Sujata Alex 04/28/18 11:[address] Glu mg/dL 148 04/11/18 06:52 Hemoglobin A1c 6.8 % (4.0-6.0) H 04/11/18 06:52 Calcium 8.8 mg/dL (8.4-10.2) 04/22/18 07:46 Phosphorus 3.9 mg/dL (2.5-4.5) 04/22/18 07:46 Magnesium 2.7 mg/dL (1.6-2.3) H 04/22/18 07:46 Total Bilirubin 0.4 mg/dL (0.2-1.3) 04/11/18 06:52 AST 22 U/L (14-36) 04/11/18 06:52 ALT 52 U/L (9-52) 04/11/18 06:52 Alkaline Phosphatase 90 U/L (38-126) 04/11/18 06:52 Total Creatine Kinase <20 U/L (30-135) L 04/10/18 19:10 CK-MB (CK-2) 0.3 ng/mL (0.0-2.4) 04/10/18 19:10 CK-MB (CK-2) Rel Index 04/10/18 19:10 Troponin I <0.012 ng/mL (0.000-0.034) 04/10/18 19:10 NT-Pro-B Natriuret Pep 503 pg/mL 04/10/18 19:10 Total Protein 6.2 g/dL (6.3-8.2) L 04/11/18 06:52 Albumin 3.4 g/dL (3.5-5.0) L 04/11/18 06:52 Urine Color Yellow 04/17/18 18:46 Urine Appearance Turbid (Clear) H 04/17/18 18:46 Urine pH 5.5 (5.0-8.0) 04/17/18 18:46 Ur Specific [place] 1.015 (1.001-1.035) 04/17/18 18:46 Urine Protein 1+ (Negative) H 04/17/18 18:46 Urine Glucose (UA) Negative (Negative) 04/17/18 18:46 Urine Ketones Negative (Negative) 04/17/18 18:46 Urine Blood Moderate (Negative) H 04/17/18 18:46 Urine Nitrite Negative (Negative) 04/17/18 18:46 Urine Bilirubin Negative (Negative) 04/17/18 18:46 Urine Urobilinogen <2.0 mg/dL (<2.0) 04/17/18 18:46 Ur Leukocyte Esterase Large (Negative) H 04/17/18 18:46 Urine RBC 115 /hpf (0-5) H 04/17/18 18:46 Urine WBC 83 /hpf (0-5) H 04/17/18 18:46 Urine Bacteria Many /hpf (None) H 04/17/18 18:46 Urine Yeast (Budding) Many /hpf (None) H 04/17/18 18:46 Influenza Type A RNA Not Detected (Not Detectd) 04/11/18 01:45 Influenza Type B (PCR) Not Detected (Not Detectd) 04/11/18 01:45 Microbiology 04/17/18 18:46 Urine,Voided Urine Culture - Final Escherichia coli Pseudomonas aeruginosa 04/10/18 19:10 Blood Blood Culture - Final No Growth after 144 hours Assessment and Plan (1) Pseudomonas urinary tract infection Narrative/Plan: 67 year old woman with superobesity and paraplegia continues to feel poorly with ongoing shortness of breath and cough without hemoptysis. The patient's progress is discussed with the private pilot. Continues to have ongoing symptomatology. There is lack of improvement over the last day. It is noted to consult the patient does have a multidrug resistant urinary tract infection and Monurol has been requested and I believe is given today. The patient is not a good candidate for bronchoscopy although it could be therapeutic is likely that she would end up intubated, which could result in long-term intubation given her current functional status. Patient relates that she does tolerate Zosyn well, and with her lack of current pulmonary improvement this will be added and will monitor her progress. We'll request with the staff if a Summer lift can be obtained so that she is able to get up and sit in a chair at least for some part of the day to improve her pulmonary function. 04/26/2018 patient is finally starting to feel a bit better. Addition of Zosyn allowed improvement of her severe pulmonary symptoms is still having some mild burning with the urine. We'll plan a course of intravenous antibiotic therapy with Zosyn for her complex pneumonia. Monurol was given on Sunday for repeat dose can be given on Sunday for her multidrug resistant pathogens of her urine. We'll have her port placed on Sunday and likely discharged home. 04/27/2018 reveals the patient to be feeling better. Hopefully with the addition of the vaginal cream improves. Vaginal symptoms. She is less short of breath less cough feeling better. Port to be placed on Sunday04/28/2018 patient actually feels well today. This is the first time in quite some time she's been able to vocalize that she actually feels well. We'll plan on the completion course of the Zosyn for her pulmonary infection, will ask if pulmonary critical care can continue inhaled steroid via nebulizer rather than by MDI. Vaginal symptoms improved. We'll plan on the repeat of Monurol dose tomorrow and hopefully discharge home tomorrow after her port has been placed. Current Visit: Yes Status: Acute Code(s): N39.0 - URINARY TRACT INFECTION, SITE NOT SPECIFIED; B96.5 - PSEUDOMONAS (MALLEI) CAUSING DISEASES CLASSD [facility] SNOMED Code(s): 796738399 (2) Pneumonia Current Visit: No Status: Acute Code(s): J18.9 - PNEUMONIA, UNSPECIFIED ORGANISM SNOMED Code(s): 661599134
[2018-04-28] MEDS ORDERED: MD COMMUNICATION TO PHARMACY 1 EACH MISC PO PRN (14:42)
[2018-04-28 17:09] LABS: Glucose,Whole Blood 314 mg/dL (75-99)
[2018-04-28] MEDS: PANTOPRAZOLE 40 MG TABLET PO SCH (21:00)
[2018-04-28] MEDS: GABAPENTIN 300 MG CAP PO SCH (21:00)
[2018-04-28] MEDS: ASPIRIN 81 MG PO SCH (21:00)
[2018-04-28] MEDS: INSULIN DETEMIR 100 UNIT/ML 10 ML VIAL SQ SCH (21:01)
[2018-04-28] MEDS: MONTELUKAST 10 MG TAB PO SCH (21:01)
[2018-04-28 21:09] LABS: Glucose,Whole Blood 308 mg/dL (75-99)
[2018-04-28 23:57] LABS: Glucose,Whole Blood 228 mg/dL (75-99)
--- NOTE | 2018-04-29 01:42 | PN ---
PROGRESS NOTE DATE OF SERVICE: April 28, 2018. PRESENTING COMPLAINT: Tired. INTERVAL HISTORY: Patient presented with acute asthma exacerbation, acute tracheobronchitis, UTI, oral candidiasis. Remains on IV Zosyn. Awaiting Port-A-Cath placement tomorrow. Otherwise doing well. Tolerating a diet. Chronic paraplegia. REVIEW OF SYSTEMS: Done for constitutional, cardiovascular, GI, pulmonary; relevant findings as above. CURRENT MEDICATIONS: Include Diflucan and Zosyn. PHYSICAL EXAMINATION: VITAL SIGNS: Temperature 98.2, pulse 72, respiration 20, blood pressure 142/66, pulse ox 97% on 3 L. GENERAL APPEARANCE: Propped up awake comfortable eyes pupils are normal. NECK: JVD not raised. Mass not palpable. LUNGS: Decreased breath sounds. CARDIOVASCULAR: First and seconds sounds normal. Minimal edema. ABDOMEN: Distended, soft. Liver and spleen not palpable. PSYCHIATRY: Alert and oriented times three. Mood and affect normal. Lower extremity weakness. INVESTIGATIONS: Accu-Cheks are noted. ASSESSMENT: 1. Acute exacerbation of mild intermittent asthma with good response and underlying tracheobronchitis. 2. Acute oropharyngeal candidiasis. Responded well to Diflucan. 3. Chronic hypoxic respiratory failure. 4. Diabetes mellitus type 2, chronically on insulin uncontrolled with both hypo- and hyperglycemia. 5. Chronic fibromyalgia. 6. Hyperlipidemia. 7. Essential hypertension. 8. Primary osteoarthritis. 9. Chronic hypoxic respiratory failure. 10.Morbid obesity BMI 39.4. 11.Chronic bilateral paraplegia from spinal injury 2006. 12.Chronic urinary stress incontinence. 13.Obstructive sleep apnea uses BiPAP. 14.Acute urinary tract infection with E coli and ESBL and Pseudomonas. PLAN: Stable. The patient will receive 2 weeks of IV antibiotics as an outpatient per Dr. Cannon, pending Port-A-Cath placement tomorrow. Care was discussed with the patient. MMODL / IJN: [id number] /
[2018-04-29] MEDS: IPRATROPIUM-ALBUTEROL 3 ML NEB INHALATION SCH ×5 (03:08→20:54)
[2018-04-29] MEDS: ACETAMINOPHEN TAB 325 MG TAB PO PRN (05:51)
[2018-04-29 06:35] LABS: Glucose,Whole Blood 135 mg/dL (75-99)
[2018-04-29] MEDS: FORMOTEROL FUMARATE 20 MCG/2 ML NEBU INHALATION SCH ×2 (08:47→20:54)
[2018-04-29] MEDS: BUDESONIDE 1 MG/2 ML NEBU INHALATION SCH ×2 (08:47→20:54)
[2018-04-29] MEDS: INSULIN ASPART 100 UNIT/ML 1 ML 10 ML VIAL SQ SCH ×7 (09:02→22:05)
[2018-04-29] MEDS: PIPERACILLIN-TAZOBACTAM 3.375 GM in SODIUM CHLORIDE 0.9% 100 ML IVPB SCH ×2 (09:38→17:32)
[2018-04-29] MEDS: predniSONE 10 MG TAB PO SCH (09:39)
[2018-04-29] MEDS: BACLOFEN 10 MG TAB PO SCH ×2 (09:39→22:03)
[2018-04-29] MEDS: amLODIPine 10 MG TAB PO SCH (09:39)
[2018-04-29] MEDS: FUROSEMIDE 40 MG TAB PO SCH (09:39)
[2018-04-29] MEDS: CITALOPRAM HYDROBROMIDE 10 MG TAB PO SCH (09:39)
[2018-04-29] MEDS: ASCORBIC ACID 500 MG TAB PO SCH (09:40)
[2018-04-29] MEDS: FLUCONAZOLE 150 MG TAB PO SCH (09:40)
[2018-04-29] MEDS: FERROUS SULFATE 325 MG TAB PO SCH (09:41)
[2018-04-29] MEDS: HEPARIN SODIUM,PORCINE 5,000 UNIT/ML 1 ML VIAL SQ SCH ×2 (09:52→16:53)
[2018-04-29 11:01] LABS: Glucose,Whole Blood 134 mg/dL (75-99)
[2018-04-29] MEDS ORDERED: MONUROL PO ONE (12:00)
[2018-04-29] MEDS ORDERED: IV FLUID CONTINUATION 700 ML IV ONE (16:32)
[2018-04-29 16:57] LABS: Glucose,Whole Blood 245 mg/dL (75-99)
[2018-04-29] MEDS ORDERED: INSULIN ASPART 100 UNIT/ML 1 ML 10 ML VIAL SQ ONE (16:57)
[2018-04-29] MEDS ORDERED: ONDANSETRON 4 MG/2 ML VIAL IVP ONE (16:58)
[2018-04-29] MEDS ORDERED: KETAMINE 10 MG/ML 20 ML VIAL ONE (17:27)
[2018-04-29] MEDS ORDERED: fentaNYL (PF) 50 MCG/ML 2 ML AMP ONE (17:27)
[2018-04-29] MEDS ORDERED: MIDAZOLAM 2 MG/2 ML VIAL ONE (17:27)
[2018-04-29] MEDS ORDERED: PROPOFOL 10 MG/ML 20 ML VIAL IV ONE (17:27)
[2018-04-29] MEDS ORDERED: LIDOCAINE 1% INJ 10MG/ML (20 ML MDV) SQ ONE ×3 (17:57→18:59)
[2018-04-29] MEDS ORDERED: LACTATED RINGERS 1,000 ML IV ONE ×2 (18:15)
--- NOTE | 2018-04-29 19:18 | P.OP ---
Date of Procedure: 04/29/18 Procedure(s) Performed: PREOPERATIVE DIAGNOSIS: Poor IV access, recurrent infections POSTOPERATIVE DIAGNOSIS: Same PROCEDURE: Port-A-Cath placement SURGEON: Agnes EBL: Minimal ANESTHESIA: Sedation COMPLICATIONS: None OPERATIVE PROCEDURE: Patient was brought and placed on the operative table in the supine position. The patient was sedated per anesthesia that time. The chest and neck were prepped and draped in usual sterile fashion. The ultrasound probe was used to identify the location of the right internal jugular vein. The skin was localized with lidocaine. The Seldinger needle was advanced into the IJ under ultrasound guidance. The wire was advanced through the needle under fluoroscopic guidance. Unfortunately the wire was meeting resistance and under fluoroscopy was noted to reach an area of suspected occlusion in the proximal internal jugular vein. The wire was able to easily refluxed back up into the neck but despite 2 separate attempts we were unable to advance the wire into the SVC. I suspect the patient has scarring from previous Garza catheter placement. The left neck was not fully prepped so the sterile drapes were removed. The patient was reprepped with a focus on the left internal jugular vein approach. Once we had this area fully prepped and draped the ultrasound was used again to identify the course of the jugular vein now on the left side. The wire was placed into the left IJ under ultrasound guidance. The wire was able to be advanced into the right atrium and right ventricle without significant difficulty on the left-hand side. A port pocket was created in the left infraclavicular location staying somewhat medial near the sternum because of the patient's excessive subcutaneous fat. The 8-Vietnamese catheter was tunneled from the wire entrance site to the port pocket. The dilator introducer was threaded over the guidewire. The guidewire and dilator were then removed. The catheter was advanced through the introducer and introducer was then removed. The tip was seen to be in the right atrial junction. The port was then connected to the catheter. The port was sutured down to the underlying tissues using some 4 separate 3-0 silk sutures. Port was flushed with both saline and a Hep-Lock solution. There was good flow both in and out of the port. The subcutaneous tissues were reapproximated using 3-0 Vicryl sutures and the skin at both locations using 4-0 Monocryl sutures. Skin glue and sterile dressings then applied. DISPOSITION: Stable to recovery room
--- NOTE | 2018-04-29 19:55 | XR ---
EXAMINATION TYPE: XR chest 1V confirm line [facility] DATE OF EXAM: 04/29/2018 COMPARISON: April 17, 2018 HISTORY: Check line placement TECHNIQUE: Single frontal view of the chest is obtained. there is no heart failure. Lungs are clear of consolidation. Thoracic aorta is atheromatous. There is left-sided jugular catheter with the tip in the superior vena cava. There are chest leads. IMPRESSION: No acute lung disease. . There is probably cardiomegaly. No change compared to last exam . Stable pleural reaction at the lateral left lung base.
[2018-04-29 19:56] LABS: Glucose,Whole Blood 172 mg/dL (75-99)
--- NOTE | 2018-04-29 20:06 | FL ---
Fluoroscopy HISTORY: Port-A-Cath placement 3 minutes 14 seconds fluoroscopy time supplied to the referring clinician. 2 intraoperative C-arm im ages document the procedure. See dictated report from general surgery.
[2018-04-29 20:42] LABS: Glucose,Whole Blood 160 mg/dL (75-99)
[2018-04-29] MEDS: PANTOPRAZOLE 40 MG TABLET PO SCH (22:03)
[2018-04-29] MEDS: GABAPENTIN 300 MG CAP PO SCH (22:03)
[2018-04-29] MEDS: ASPIRIN 81 MG PO SCH (22:03)
[2018-04-29] MEDS: PRAVASTATIN SODIUM 20 MG TAB PO SCH (22:03)
[2018-04-29] MEDS: MONTELUKAST 10 MG TAB PO SCH (22:04)
[2018-04-29] MEDS: INSULIN DETEMIR 100 UNIT/ML 10 ML VIAL SQ SCH (22:04)
[2018-04-29] MEDS: NEOMYCIN-BACITRACIN-POLY OINT 14 GM TUBE TOPICAL SCH (22:06)
[2018-04-29] MEDS: SODIUM CHLORIDE 0.9% 1,000 ML IV SCH (22:08)
[2018-04-29 22:26] VITALS: RESP 18
[2018-04-30] MEDS: IPRATROPIUM-ALBUTEROL 3 ML NEB INHALATION SCH ×4 (00:04→12:26)
[2018-04-30] MEDS: MICONAZOLE 2% VAGINAL CREAM 45 GM TUBE/KIT VAGINAL SCH (00:30)
[2018-04-30] MEDS: HEPARIN SODIUM,PORCINE 5,000 UNIT/ML 1 ML VIAL SQ SCH ×2 (00:40→07:59)
[2018-04-30] MEDS: PIPERACILLIN-TAZOBACTAM 3.375 GM in SODIUM CHLORIDE 0.9% 100 ML IVPB SCH ×2 (00:41→07:55)
[2018-04-30] MEDS: ACETAMINOPHEN TAB 325 MG TAB PO PRN (04:06)
[2018-04-30 05:13] VITALS: BP 140/71; TEMP 97.7
--- NOTE | 2018-04-30 05:17 | PN ---
PROGRESS NOTE DATE OF SERVICE: 04/29/2018 PRESENTING COMPLAINT: Tired. INTERVAL HISTORY: Patient presented with acute asthma exacerbation, acute tracheobronchitis, UTI and oral candidiasis, has been on IV Zosyn. Saw the patient this morning, awaiting a Port-A-Cath placement sometime later today. Tolerating a diet. Otherwise feeling well, requesting to go home tomorrow as she will not have help today at home. REVIEW OF SYSTEMS: Done for constitutional, cardiovascular, GI, pulmonary; relevant findings as above. CURRENT MEDICATIONS: Current medications are reviewed that include oral Diflucan and IV Zosyn. PHYSICAL EXAMINATION: On examination, temperature 98, pulse 75, respirations 16, blood pressure 159/74, pulse ox 98% on 3 L. GENERAL APPEARANCE: Sitting up, comfortable. EYES: Pupils equal. Conjunctivae normal. NECK: JVD not raised. Mass not palpable. RESPIRATORY: Effort normal. LUNGS: Decreased breath sounds. CARDIOVASCULAR: First and second sounds normal. Minimal edema. ABDOMEN: Distended, soft. Liver and spleen not palpable. PSYCHIATRY: Alert and oriented x3. Mood and affect normal. Lower extremity weakness chronic. INVESTIGATIONS: Accu-Cheks are noted. ASSESSMENT: 1. Acute exacerbation of mild intermittent asthma with good response and underlying tracheobronchitis. 2. Acute oropharyngeal candidiasis, responded well to Diflucan. 3. Chronic hypoxic respiratory failure. 4. Diabetes mellitus type 2, chronically on insulin, uncontrolled with both hypo- and hyperglycemia. 5. Chronic fibromyalgia. 6. Hyperlipidemia. 7. Essential hypertension. 8. Primary osteoarthritis. 9. Chronic hypoxic respiratory failure. 10.Morbid obesity, body mass index 39.4. 11.Chronic bilateral paraplegia from spinal injury in 2006. 12.Chronic urinary stress incontinence. 13.Obstructive sleep apnea, uses BiPAP. 14.Acute urinary tract infection with Escherichia coli and ESBL and Pseudomonas. PLAN: Care was discussed with the patient and the caregiver at the bedside. Port-A-Cath will be placed sometime later today and hopefully patient can be discharged home tomorrow. MMODL / IJN: [id number] /
[2018-04-30 07:00] LABS: Glucose,Whole Blood 214 mg/dL (75-99)
[2018-04-30] MEDS: INSULIN ASPART 100 UNIT/ML 1 ML 10 ML VIAL SQ SCH ×4 (07:57→11:07)
[2018-04-30] MEDS: predniSONE 10 MG TAB PO SCH (07:57)
[2018-04-30] MEDS: amLODIPine 10 MG TAB PO SCH (07:58)
[2018-04-30] MEDS: BACLOFEN 10 MG TAB PO SCH (07:58)
[2018-04-30] MEDS: FERROUS SULFATE 325 MG TAB PO SCH (07:58)
[2018-04-30] MEDS: FUROSEMIDE 40 MG TAB PO SCH (07:58)
[2018-04-30] MEDS: CITALOPRAM HYDROBROMIDE 10 MG TAB PO SCH (07:58)
[2018-04-30] MEDS: ASCORBIC ACID 500 MG TAB PO SCH (07:58)
[2018-04-30] MEDS: FLUCONAZOLE 150 MG TAB PO SCH (09:03)
[2018-04-30] MEDS: BUDESONIDE 1 MG/2 ML NEBU INHALATION SCH (09:29)
[2018-04-30] MEDS: FORMOTEROL FUMARATE 20 MCG/2 ML NEBU INHALATION SCH (09:29)
[2018-04-30 10:55] LABS: Glucose,Whole Blood 99 mg/dL (75-99)
--- NOTE | 2018-04-30 12:07 | P.PN ---
Subjective Progress Note Date: 04/30/18 Principal diagnosis: Constipation Patient doing well today. Mild discomfort at the port site. No fevers. No trouble breathing. Objective - Vital Signs Vital signs: Vital Signs Temp 97.7 F 04/30/18 05:00 Pulse 96 04/30/18 09:55 Resp 18 04/30/18 05:00 BP 140/71 04/30/18 05:00 Pulse Ox 99 04/30/18 05:00 Intake & Output 04/29/18 04/30/18 04/30/18 18:59 06:59 18:59 Intake Total 760 1060 Output Total 4100 1005 Balance -3340 55 Intake: IV 660 1060 Sodium Chloride 0.9% 1, 160 160 000 ml @ 20 mls/hr IV . Q24H ANNE Rx#:[id number] Intake, IV Titration 100 Amount Piperacillin-Tazobactam 3 100 .375 gm In Sodium Chloride 0.9% 100 ml @ 25 mls/hr IVPB Q8HR ANNE Rx# :[id number] Oral 0 Output: Urine 2550 1000 Uretheral (Stallings) 1000 Stool 1550 Estimated Blood Loss 5 Other: Voiding Method Indwelling Catheter Indwelling Catheter Indwelling Catheter # Voids 1 # Bowel Movements 1 - Exam Left chest wall incision clean and dry - Labs CBC & Chem 7: 04/21/18 08:25 04/22/18 07:46 Labs: Abnormal Lab Results - Last 24 Hours (Table) 04/29/18 04/29/18 04/29/18 Range/Units 16:44 19:54 20:41 POC Glucose (mg/dL) 245 H 172 H 160 H (75-99) mg/dL 04/30/18 Range/Units 06:58 POC Glucose (mg/dL) 214 H (75-99) mg/dL Assessment and Plan (1) Constipation Narrative/Plan: May utilize port starting tomorrow. Follow-up as needed. Current Visit: Yes Status: Chronic Code(s): K59.00 - CONSTIPATION, UNSPECIFIED SNOMED Code(s): 68091862
[2018-04-30 12:36] VITALS: PULSE 100
--- NOTE | 2018-05-01 06:00 | DS ---
DISCHARGE SUMMARY DATE OF ADMISSION: 04/10/2018 DATE OF DISCHARGE: 04/30/2018 FINAL DIAGNOSES: 1. Acute exacerbation of mild intermittent asthma from acute tracheobronchitis. 2. Acute oropharyngeal candidiasis, responded well to Diflucan. 3. Chronic hypoxic respiratory failure. 4. Acute urinary tract infection with Escherichia coli/ESBL and Pseudomonas. 5. Diabetes mellitus type 2, chronically on insulin uncontrolled with both hypo- and hyperglycemia. 6. Chronic fibromyalgia. 7. Hyperlipidemia. 8. Essential hypertension. 9. Primary osteoarthritis. 10.Chronic hypoxic respiratory failure. 11.Morbid obesity, body mass index 39.4. 12.Chronic bilateral paraplegia from spinal injury in 2006. 13.Chronic urinary stress incontinence. 14.Obstructive sleep apnea, uses a BiPAP. HOSPITAL COURSE: This patient presented with acute exacerbation of asthma with acute tracheobronchitis. Also had acute urinary tract infection with E coli, ESBL and Pseudomonas. Also had significant oropharyngeal candidiasis. Responded well to the current antibiotics, antifungals, doing much better at the time of discharge. The patient had a Infusaport placed by Dr. Alarcon earlier today. Doing better, tolerating a diet. The patient has chronic paraparesis. PHYSICAL EXAMINATION: On examination, temperature 97.7, pulse 80, respirations 18, blood pressure 140/71, pulse ox 99% on 3 L. LUNGS: Decreased breath sounds. Anterior chest wall has got a port. CONSULTATIONS: Dr. Alarcon from General Surgery, Dr. Cannon from Infectious Disease, Dr. Perkins from Pulmonary Critical Care. DISCHARGE MEDICATIONS: 1. Vitamin C 1000 mg p.o. daily. 2. Aspirin 81 mg p.o. q.h.s. 3. Baclofen 10 mg p.o. b.i.d. 4. Symbicort 160/4.5 two puffs b.i.d. 5. Lasix 40 mg p.o. daily. 6. Singulair 10 mg q.h.s. 7. Vitamin D2, 50,000 units p.o. on Sunday. 8. Ventolin HFA 2 puffs q.4 p.r.n. 9. Celexa 10 mg p.o. daily. 10.Prilosec 20 mg q.h.s. 11.Iron 145 mg p.o. daily. 12.Neurontin 300 mg q.h.s. 13.[place] 5 one tablet p.o. q.8 p.r.n. 14.NovoLog. 15.DuoNeb q.4. 16.Lactulose 20 grams p.o. q.2 p.r.n. 17.MiraLAX 17 grams p.o. b.i.d. 18.Pravachol 20 mg p.o. q.h.s. 19.Senna 25.8 mg p.o. b.i.d. 20.Zosyn 4.5 gram IV piggyback q.8 hours for 42 bags. 21.Pulmicort 1 mg nebulizer b.i.d. 22.Diflucan 150 mg p.o. daily for 10 tablets. 23.Levemir 36 units subcutaneous q.h.s. 24.Monistat q.h.s. 1 application. 25.Silvadene cream topical b.i.d. 26.Norvasc 10 mg p.o. daily. 27.Prednisone taper 30 mg for 2 days, 20 mg for 2 days, 10 mg for 2 days then stop. Follow up with [facility]. Follow up with Dr. Perkins on 05/10/2018. Follow up with Visiting Physician, Dr. Andrade, on 05/02/2018. LABS: CBC, BMP in 1 week. MMODL / IJN: [id number] /
== END 2018-04-30 14:30 | disposition home health service (06) | DRG 982 ==
LOC: EC 17:45 → 3NMEDONC 21:05
PROVIDERS: ADMIT Hospitalist; ATTEND Hospitalist
PROC: 5A09357 Assistance with Respiratory Ventilation, Less than 24 Consecutive Hours, Continuous Positive Airway Pressure (ICD-10-PCS; 2018-04-15)
PROC: 5A09357 Assistance with Respiratory Ventilation, Less than 24 Consecutive Hours, Continuous Positive Airway Pressure (ICD-10-PCS; 2018-04-22)
PROC: 02HV33Z Insertion of Infusion Device into Superior Vena Cava, Percutaneous Approach (ICD-10-PCS; 2018-04-29)
PROC: 0JH60WZ Insertion of Totally Implantable Vascular Access Device into Chest Subcutaneous Tissue and Fascia, Open Approach (ICD-10-PCS; principal; 2018-04-29 07:30)
DX: J45.21 Mild intermittent asthma with (acute) exacerbation (principal); T83.511A Infection and inflammatory reaction due to indwelling urethral catheter, initial encounter; N39.0 Urinary tract infection, site not specified; B37.0 Candidal stomatitis; B37.89 Other sites of candidiasis; E66.2 Morbid (severe) obesity with alveolar hypoventilation; G82.20 Paraplegia, unspecified; J44.0 Chronic obstructive pulmonary disease with (acute) lower respiratory infection; J44.1 Chronic obstructive pulmonary disease with (acute) exacerbation; J90 Pleural effusion, not elsewhere classified; J96.11 Chronic respiratory failure with hypoxia; J96.12 Chronic respiratory failure with hypercapnia; Z68.43 Body mass index [BMI] 50.0-59.9, adult; D69.6 Thrombocytopenia, unspecified; E11.649 Type 2 diabetes mellitus with hypoglycemia without coma; E11.65 Type 2 diabetes mellitus with hyperglycemia; E87.5 Hyperkalemia; E87.70 Fluid overload, unspecified; N31.9 Neuromuscular dysfunction of bladder, unspecified; I11.9 Hypertensive heart disease without heart failure; B96.20 Unspecified Escherichia coli [E. coli] as the cause of diseases classified elsewhere; Z16.12 Extended spectrum beta lactamase (ESBL) resistance; B96.5 Pseudomonas (aeruginosa) (mallei) (pseudomallei) as the cause of diseases classified elsewhere; D64.9 Anemia, unspecified; E78.5 Hyperlipidemia, unspecified; F32.9 Major depressive disorder, single episode, unspecified; J20.9 Acute bronchitis, unspecified; K21.9 Gastro-esophageal reflux disease without esophagitis; K59.09 Other constipation; M19.91 Primary osteoarthritis, unspecified site; M79.7 Fibromyalgia; M85.80 Other specified disorders of bone density and structure, unspecified site; N39.3 Stress incontinence (female) (male); T38.0X5A Adverse effect of glucocorticoids and synthetic analogues, initial encounter; R33.9 Retention of urine, unspecified; Z16.24 Resistance to multiple antibiotics; Z74.01 Bed confinement status; Z79.4 Long term (current) use of insulin; Z79.51 Long term (current) use of inhaled steroids; Z79.899 Other long term (current) drug therapy; Z79.82 Long term (current) use of aspirin; Z87.440 Personal history of urinary (tract) infections; Z87.891 Personal history of nicotine dependence; Z99.81 Dependence on supplemental oxygen; Z88.1 Allergy status to other antibiotic agents; Z88.0 Allergy status to penicillin; Z88.8 Allergy status to other drugs, medicaments and biological substances; Z87.01 Personal history of pneumonia (recurrent); Z96.653 Presence of artificial knee joint, bilateral; Z98.1 Arthrodesis status; Z98.42 Cataract extraction status, left eye; Z98.41 Cataract extraction status, right eye; Z96.1 Presence of intraocular lens; Z80.1 Family history of malignant neoplasm of trachea, bronchus and lung
CPT/HCPCS: 36415; 71045; 71046; 74019; 74270; 77001; 80048; 80053; 81001; 82550; 82553; 83036; 83735; 83880; 84100; 84484; 85025; 85027; 85610; 85730; 87040; 87077; 87086; 87186; 87502; 93005; 94640; 94760; 96374; 99285

== ENCOUNTER 2018-08-22 00:24 | Inpatient (IN) | payer MEDICARE, OTHER ==
[2018-08-22] MEDS ORDERED: IPRATROPIUM-ALBUTEROL 3 ML NEB INHALATION STA (00:33)
[2018-08-22 00:57] LABS: Anisocytosis Slight; Basophils % (A) 0 %; Eosinophils % (A) 0 %; HCT 31.4 % (34.0-46.0); HGB 10.3 gm/dL (11.4-16.0); Hypochromasia Slight; Lymphocytes # (A) 1.3 k/uL (1.0-4.8); Lymphocytes % (A) 20 %; MCH 28.4 pg (25.0-35.0); MCHC 32.7 g/dL (31.0-37.0); MCV 86.9 fL (80.0-100.0); Mean Platelet Volume 7.1; Monocytes # (A) 0.4 k/uL (0-1.0); Monocytes % (A) 6 %; Neutrophils # (A) 4.7 k/uL (1.3-7.7); Neutrophils % (A) 70 %; Platelet Count 290 k/uL (150-450); RBC 3.62 m/uL (3.80-5.40); RDW 16.8 % (11.5-15.5); WBC 6.8 k/uL (3.8-10.6)
[2018-08-22 01:05] LABS: Albumin 4.1 g/dL (3.5-5.0); Calcium 9.5 mg/dL (8.4-10.2); Potassium 4.6 mmol/L (3.5-5.1); Total Bilirubin 0.3 mg/dL (0.2-1.3); Total Protein 6.8 g/dL (6.3-8.2)
[2018-08-22 01:11] LABS: INR 0.9 (<1.2); Partial Thromboplastin Time 24.2 sec (22.0-30.0); Prothrombin Time 9.7 sec (9.0-12.0)
[2018-08-22 01:21] LABS: D-Dimer 0.69 mg/L FEU (<0.60)
--- NOTE | 2018-08-22 01:27 | XR ---
EXAM: XR Chest, 1 View CLINICAL HISTORY: ITS.REASON XR Reason: dyspnea TECHNIQUE: Frontal view of the chest. COMPARISON: No relevant prior studies available. FINDINGS: Lungs: Unremarkable. No consolidation. Pleural space: Unremarkable. No pneumothorax. Heart: No pneumomediastinum. Mediastinum: Unremarkable. Bones/joints: No definite fracture. Tubes, lines and devices: Central line in the right atrium IMPRESSION: No acute findings.
--- NOTE | 2018-08-22 03:44 | CT ---
EXAM: CT Angiography Chest With Intravenous Contrast CLINICAL HISTORY: ITS.REASON CT Reason: Pain TECHNIQUE: Axial computed tomographic angiography images of the chest with intravenous contrast using pulmonary embolism protocol. CTDI is 16 mGy and DLP is 1216 mGy-cm. This CT exam was performed using one or more of the following dose reduction techniques: automated exposure control, adjustment of the mA and/or kV according to patient size, and/or use of iterative reconstruction technique. MIP reconstructed images were created and reviewed. COMPARISON: Chest x-ray 08/22/18 FINDINGS: Pulmonary arteries: No filling defects. Aorta: No thoracic aortic aneurysm. Lungs: No mass. Groundglass opacity in the right middle lobe. Pleural space: No significant effusion. No pneumothorax. Heart: No cardiomegaly or pericardial effusion. Bones/joints: There is erosive changes to the T12 vertebral body with surrounding sclerotic changes. The height is somewhat maintained. Remaining vertebral bodies demonstrate degenerative changes but is intact. Soft tissues: Unremarkable. Lymph nodes: Enlarged axillary and mediastinal and right hilar lymph nodes. IMPRESSION: 1. No pulmonary embolism. 2. Nonspecific groundglass opacity involving the right middle lobe, possibly infectious or inflammatory in etiology. 3. Enlarged axillary, mediastinal, and right hilar lymph nodes. 4. Eroded appearing T12 vertebral body with surrounding sclerotic changes without significant height loss but is incompletely characterized. 5. Recommend PET/CT to rule out metastatic disease. <MYCVCSECTION> [employer] 08/22/18 03:41 Call Doctor Regarding Above results, called Dr. Irizarry on 08/22 03:41 (-04:00)
[2018-08-22] MEDS ORDERED: IPRATROPIUM-ALBUTEROL 3 ML NEB INHALATION PRN (04:02)
--- NOTE | 2018-08-22 07:32 | ED ---
SOB HPI - General Chief Complaint: Shortness of Breath Stated Complaint: BLANK Time Seen by Provider: 08/22/18 00:32 Source: EMS Limitations: no limitations - History of Present Illness Initial Comments: This patient is a 67-year-old woman with history of both CHF and COPD, who pre sents for evaluation by ambulance, after her respiratory status has been getting a bit worse over the past 2-3 days. The patient states that she was no longer able to manage without worsening home BiPAP mask, and that she was not feeling any better with nebulized treatments. Patient is denying significant chest pain. She does have an occasional cough but no sputum. Patient has not had change in urination or bowel movements. States there may be some increased swelling of her legs bilaterally MD Complaint: shortness of breath Onset/Timin -: days(s) Consistency: constant Improves With: oxygen Worsens With: lying flat Known History Of: asthma Associated Symptoms: denies other symptoms Treatments Prior to Arrival: oxygen, NIPPV - Related Data Home Medications Medication Instructions Recorded Confirmed Ascorbic Acid [Vitamin C] 1,000 mg PO DAILY@1200 10/22/13 04/10/18 Aspirin 81 mg PO HS 10/22/13 04/10/18 Baclofen [Lioresal] 10 mg PO BID 10/22/13 04/10/18 Budesonide-Formot 160-4.5 Mcg 2 puff INHALATION RT-BID 10/22/13 04/10/18 [Symbicort 160-4.5 Mcg Inhaler] Furosemide [Lasix] 40 mg PO DAILY 10/22/13 04/10/18 Montelukast Sodium [Singulair] 10 mg PO HS 10/22/13 04/10/18 Ergocalciferol [Vitamin D2 50,000 unit PO FR@1200 10/18/15 04/10/18 (DRISDOL)] Albuterol Inhaler [Ventolin Hfa 2 puff INHALATION RT-Q4H PRN 06/12/16 04/10/18 Inhaler] Citalopram Hydrobromide [CeleXA] 10 mg PO DAILY 06/12/16 04/10/18 Omeprazole [PriLOSEC] 20 mg PO HS 05/16/17 04/10/18 Slow Release Iron 145mg 145 mg PO DAILY 05/16/17 04/10/18 Gabapentin [Neurontin] 300 mg PO HS 04/10/18 04/10/18 HYDROcodone/APAP 5-325MG [[place] 1 tab PO Q8H PRN 04/10/18 04/10/18 5-325] Insulin Aspart [NovoLOG Flexpen] See Protocol SQ ACHS 04/10/18 04/10/18 Ipratropium-Albuterol Nebulize 3 ml INHALATION RT-Q4H 04/10/18 04/10/18 [Duoneb 0.5 mg-3 mg/3 ml Soln] Lactulose 20 gm PO Q2H PRN 04/10/18 04/10/18 Polyethylene Glycol 3350 [Miralax] 17 gm PO BID 04/10/18 04/10/18 Pravastatin Sodium [Pravachol] 20 mg PO HS 04/10/18 04/10/18 Sennosides [Senna] 25.8 mg PO BID@1200,2100 04/10/18 04/10/18 Previous Rx's Medication Instructions Recorded Piperacillin Sodium/Tazobactam 4.5 gm IVPB Q8HR #42 bag 04/27/18 [Zosyn] Budesonide [Pulmicort] 1 mg INHALATION RT-BID #60 nebu 04/29/18 Fluconazole [Diflucan] 150 mg PO DAILY #10 tab 04/29/18 Insulin Detemir (Levemir) [Levemir] 36 unit SQ HS syr 04/29/18 Miconazole 2% Vaginal Cream 1 applic VAGINAL HS #1 applic 04/29/18 [Monistat 7] SILVER sulfADIAZINE CREAM 1 applic TOPICAL BID applic 04/29/18 [Silvadene Cream] amLODIPine [Norvasc] 10 mg PO DAILY #30 tab 04/29/18 predniSONE See Taper PO DAILY #6 tab 04/29/18 Allergies Allergy/AdvReac Type Severity Reaction Status Date / Time acyclovir Allergy Rash/Hives Verified 04/29/18 16:56 ampicillin [From Unasyn] Allergy Dyspnea Verified 04/29/18 16:56 cephalexin [Cephalexin] Allergy Rash/Hives Verified 04/29/18 16:56 cephalexin monohydrate Allergy Rash/Hives Verified 04/29/18 16:56 [From Keflex] Cephalosporins Allergy Unknown Verified 04/29/18 16:56 erythromycin base Allergy Unknown Verified 04/29/18 16:56 famciclovir Allergy Rash/Hives Verified 04/29/18 16:56 meropenem [From Merrem] Allergy Anaphylaxis Verified 04/29/18 16:56 nitrofurantoin Allergy Unknown Verified 04/29/18 16:56 [From Macrobid] nitrofurantoin Allergy Unknown Verified 04/29/18 16:56 macrocrystalline [From Macrobid] sulbactam [From Unasyn] Allergy Dyspnea Verified 04/29/18 16:56 sulfamethoxazole Allergy Unknown Verified 04/29/18 16:56 [From Bactrim] trimethoprim [From Bactrim] Allergy Unknown Verified 04/29/18 16:56 Review of Systems ROS Statement: Those systems with pertinent positive or pertinent negative responses have been documented in the HPI. ROS Other: All systems not noted in ROS Statement are negative. Constitutional: Denies: fever, chills Respiratory: Reports: cough, dyspnea, wheezes Cardiovascular: Reports: orthopnea, edema. Denies: chest pain, palpitations, syncope Gastrointestinal: Denies: abdominal pain, nausea, vomiting Genitourinary: Denies: dysuria, hematuria Musculoskeletal: Denies: back pain Skin: Denies: rash Neurological: Denies: headache, weakness, numbness Past Medical History Past Medical History: Asthma, COPD, Diabetes Mellitus, Fibromyalgia, GERD/Reflux, Hyperlipidemia, Hypertension, Osteoarthritis (OA), Pneumonia, Sleep Apnea/CPAP/BIPAP Additional Past Medical History / Comment(s): IDC, FREQ UTI. anemia; osteopenia; parapalegic "R/T SPINAL SURG 2006, AND AMBULANCE INJURY LATER", obstructive sleep apnea, chronic Stallings catheter, shingles History of Any Multi-Drug Resistant Organisms: ESBL Date of last positivie culture/infection: 04/17/18 MDRO Source:: Urine ESBL Past Surgical History: Adenoidectomy, Back Surgery, Joint Replacement, Orthopedic Surgery, Tonsillectomy Additional Past Surgical History / Comment(s): Neck surgery, ZAY KNEE REPLACEMENT, FUSION T-12 TO L-5 METAL REMOVED, L5 TO S1 - AND REFUSED,KNEE ARTHROSCOPY X3. RT FOOT METATRSAL BROKEN, BIOPSY ON ZAY BREAST-NEG, ZAY CARPAL TUNNEL, LT HAND BASAL. ARTHROSOCPY,UMBILICAL HERNIA, SANTANA 09/2012; LAPROSCOPY, B CATARACTS. Santana removed Past Anesthesia/Blood Transfusion Reactions: Family History of Problems w/ Anesthesia, Postoperative Nausea & Vomiting (PONV) Additional Past Anesthesia/Blood Transfusion Reaction / Comment(s): HAD BLOOD TRANSFUSION IN PAST. SISTER HAD PROB BREATHING AFTER SURG. Past Psychological History: Depression Additional Psychological History / Comment(s): Lives in the family home. She has a visiting physician. Has family members that help her. She is on a jacky atric air bed at home. She also has Summer lift, electric wheelchair, nebulizer, BiPAP and home oxygen at 2 L nasal cannula. Greg taken out 03/26/[address] [facility] Smoking Status: Former smoker Past Alcohol Use History: None Reported Additional Past Alcohol Use History / Comment(s): Patient lives in the family home. He is visiting physicians. Patient has family members that help her. She has a bariatric bed at home, where left, electric wheelchair, nebulizer, BiPAP and home oxygen at 2 L nasal cannula. Past Drug Use History: None Reported - Past Family History Father Family Medical History: Cancer Additional Family Medical History / Comment(s): LUNG CA - BOTH PARENTS Mother Family Medical History: Cancer General Exam General appearance: alert, in distress Head exam: Present: atraumatic, normocephalic Eye exam: Present: normal appearance. Absent: scleral icterus, conjunctival injection Neck exam: Present: normal inspection Respiratory exam: Present: respiratory distress, wheezes. Absent: rales, rhonchi, stridor, accessory muscle use, decreased breath sounds, prolonged expiratory Cardiovascular Exam: Present: regular rate, normal rhythm, normal heart sounds. Absent: systolic murmur, diastolic murmur, rubs, gallop GI/Abdominal exam: Present: soft. Absent: distended, tenderness, guarding, rebound, rigid, mass Extremities exam: Present: normal inspection, normal capillary refill, pedal edema. Absent: calf tenderness Back exam: Present: normal inspection. Absent: CVA tenderness (R), CVA tenderness (L) Neurological exam: Present: alert Skin exam: Present: warm, dry, intact, normal color. Absent: rash Course Vital Signs 08/22/18 08/22/18 08/22/18 00:30 00:40 00:41 Temperature 99.0 F Pulse Rate 105 H 111 H 107 H Respiratory 16 24 Rate Blood Pressure 161/88 161/88 O2 Sat by Pulse 95 94 L Oximetry 08/22/18 08/22/18 08/22/18 00:50 00:56 01:10 Temperature Pulse Rate 105 H 106 H 105 H Respiratory 24 Rate Blood Pressure 176/89 156/90 O2 Sat by Pulse 96 95 Oximetry 08/22/18 08/22/18 08/22/18 01:40 02:00 02:10 Temperature Pulse Rate 105 H 101 H 99 Respiratory 16 Rate Blood Pressure 132/80 144/77 140/74 O2 Sat by Pulse 94 L 94 L 96 Oximetry 08/22/18 08/22/18 08/22/18 02:20 02:40 02:50 Temperature Pulse Rate 101 H 98 98 Respiratory 17 Rate Blood Pressure 136/82 141/72 136/71 O2 Sat by Pulse 95 95 95 Oximetry 08/22/18 08/22/18 08/22/18 03:10 03:40 04:00 Temperature 98.0 F Pulse Rate 97 95 Respiratory 16 16 Rate Blood Pressure 177/82 129/80 117/62 O2 Sat by Pulse 96 96 Oximetry 08/22/18 08/22/18 08/22/18 04:10 04:20 04:31 Temperature 98.0 F Pulse Rate 93 96 90 Respiratory 18 18 Rate Blood Pressure 112/68 177/93 O2 Sat by Pulse 97 96 Oximetry Medical Decision Making - Lab Data Result diagrams: 08/22/18 00:42 08/22/18 00:42 Lab Results 08/22/18 08/22/18 08/22/18 Range/Units 00:42 00:42 00:42 WBC 6.8 (3.8-10.6) k/uL RBC 3.62 L (3.80-5.40) m/uL Hgb 10.3 L (11.4-16.0) gm/dL Hct 31.4 L (34.0-46.0) % MCV 86.9 (80.0-100.0) fL MCH 28.4 (25.0-35.0) pg MCHC 32.7 (31.0-37.0) g/dL RDW 16.8 H (11.5-15.5) % Plt Count 290 (150-450) k/uL Neutrophils % 70 % Lymphocytes % 20 % Monocytes % 6 % Eosinophils % 0 % Basophils % 0 % Neutrophils # 4.7 (1.3-7.7) k/uL Lymphocytes # 1.3 (1.0-4.8) k/uL Monocytes # 0.4 (0-1.0) k/uL Eosinophils # 0.0 (0-0.7) k/uL Basophils # 0.0 (0-0.2) k/uL Hypochromasia Slight Anisocytosis Slight PT 9.7 (9.0-12.0) sec INR 0.9 (<1.2) APTT 24.2 (22.0-30.0) sec D-Dimer 0.69 H (<0.60) mg/L FEU Sodium 139 (137-145) mmol/L Potassium 4.6 (3.5-5.1) mmol/L Chloride 98 (98-107) mmol/L Carbon Dioxide 35 H (22-30) mmol/L Anion Gap 6 mmol/L BUN 33 H (7-17) mg/dL Creatinine 1.01 (0.52-1.04) mg/dL Est GFR (CKD-EPI)AfAm 67 (>60 ml/min/1.73 sqM) Est GFR (CKD-EPI)NonAf 58 (>60 ml/min/1.73 sqM) Glucose 96 (74-99) mg/dL Calcium 9.5 (8.4-10.2) mg/dL Total Bilirubin 0.3 (0.2-1.3) mg/dL AST 24 (14-36) U/L ALT 37 (9-52) U/L Alkaline Phosphatase 106 (38-126) U/L Troponin I (0.000-0.034) ng/mL NT-Pro-B Natriuret Pep pg/mL Total Protein 6.8 (6.3-8.2) g/dL Albumin 4.1 (3.5-5.0) g/dL 08/22/18 08/22/18 Range/Units 00:42 00:42 WBC (3.8-10.6) k/uL RBC (3.80-5.40) m/uL Hgb (11.4-16.0) gm/dL Hct (34.0-46.0) % MCV (80.0-100.0) fL MCH (25.0-35.0) pg MCHC (31.0-37.0) g/dL RDW (11.5-15.5) % Plt Count (150-450) k/uL Neutrophils % % Lymphocytes % % Monocytes % % Eosinophils % % Basophils % % Neutrophils # (1.3-7.7) k/uL Lymphocytes # (1.0-4.8) k/uL Monocytes # (0-1.0) k/uL Eosinophils # (0-0.7) k/uL Basophils # (0-0.2) k/uL Hypochromasia Anisocytosis PT (9.0-12.0) sec INR (<1.2) APTT (22.0-30.0) sec D-Dimer (<0.60) mg/L FEU Sodium (137-145) mmol/L Potassium (3.5-5.1) mmol/L Chloride (98-107) mmol/L Carbon Dioxide (22-30) mmol/L Anion Gap mmol/L BUN (7-17) mg/dL Creatinine (0.52-1.04) mg/dL Est GFR (CKD-EPI)AfAm (>60 ml/min/1.73 sqM) Est GFR (CKD-EPI)NonAf (>60 ml/min/1.73 sqM) Glucose (74-99) mg/dL Calcium (8.4-10.2) mg/dL Total Bilirubin (0.2-1.3) mg/dL AST (14-36) U/L ALT (9-52) U/L Alkaline Phosphatase (38-126) U/L Troponin I <0.012 (0.000-0.034) ng/mL NT-Pro-B Natriuret Pep 537 pg/mL Total Protein (6.3-8.2) g/dL Albumin (3.5-5.0) g/dL - EKG Data -: EKG Interpreted by Mn EKG shows normal: sinus rhythm, axis (Normal), intervals (Normal), QRS complexes (Low-voltage QRS complexes) Rate: tachycardia (Rate approximately 107 bpm) Disposition Clinical Impression: Acute exacerbation of chronic obstructive airways disease Disposition: ADMITTED IP TO THIS [facility] Condition: Fair
[2018-08-22 07:42] LABS: Glucose,Whole Blood 99 mg/dL (75-99)
[2018-08-22] MEDS ORDERED: ALBUTEROL NEBULIZED 2.5 MG/3 ML INHALATION SCH (08:00)
[2018-08-22] MEDS ORDERED: IPRATROPIUM-ALBUTEROL 3 ML NEB INHALATION SCH (08:00)
[2018-08-22] MEDS ORDERED: IPRATROPIUM 0.5 MG/2.5 ML NEBU INHALATION SCH (08:00)
[2018-08-22] MEDS: BUDESONIDE 0.5 MG/2 ML NEBU INHALATION SCH ×2 (08:20→20:13)
[2018-08-22] MEDS ORDERED: HYDROcodone/APAP 5-325MG 1 EACH TAB PO PRN (08:45)
[2018-08-22] MEDS ORDERED: LACTULOSE 20 GM/30 ML CUP PO PRN (08:45)
[2018-08-22] MEDS ORDERED: predniSONE 20 MG TAB PO SCH (09:00)
[2018-08-22] MEDS: DOCUSATE 100 MG CAP PO SCH ×2 (09:55→20:35)
[2018-08-22] MEDS: ASCORBIC ACID 500 MG TAB PO SCH (09:55)
[2018-08-22] MEDS: CHOLECALCIFEROL 1,000 UNIT TAB PO SCH (09:55)
[2018-08-22] MEDS: FERROUS SULFATE 325 MG TAB PO SCH (09:55)
[2018-08-22] MEDS: SENNOSIDES 8.6 MG TAB PO SCH ×2 (09:55→20:34)
[2018-08-22] MEDS: BACLOFEN 10 MG TAB PO SCH ×2 (09:56→20:34)
[2018-08-22] MEDS: MONTELUKAST 10 MG TAB PO SCH (09:56)
[2018-08-22] MEDS: LORATADINE 10 MG TAB PO SCH (09:56)
[2018-08-22] MEDS: CITALOPRAM HYDROBROMIDE 10 MG TAB PO SCH (09:56)
[2018-08-22] MEDS: FUROSEMIDE 80 MG TAB PO SCH (09:56)
[2018-08-22] MEDS: metFORMIN 500 MG TAB PO SCH ×2 (09:56→20:34)
[2018-08-22] MEDS: MELOXICAM 7.5 MG TAB PO SCH (09:56)
[2018-08-22] MEDS: methylPREDNISolone SOD SUCCI 40 MG/ML 1 ML VIAL IV SCH ×3 (10:02→23:20)
[2018-08-22] MEDS: IPRATROPIUM-ALBUTEROL 3 ML NEB INHALATION SCH ×3 (11:34→20:11)
[2018-08-22 12:12] LABS: Glucose,Whole Blood 161 mg/dL (75-99)
[2018-08-22] MEDS: INSULIN ASPART (NovoLOG) 100 UNIT/ML VIAL SQ SCH ×3 (13:47→20:35)
[2018-08-22 17:01] LABS: Glucose,Whole Blood 205 mg/dL (75-99)
[2018-08-22 20:12] LABS: Glucose,Whole Blood 196 mg/dL (75-99)
[2018-08-22] MEDS: GABAPENTIN 300 MG CAP PO SCH (20:34)
[2018-08-22] MEDS: ASPIRIN 81 MG PO SCH (20:35)
[2018-08-22] MEDS: INSULIN DETEMIR (LEVEMIR) 100 UNIT/ML SYR SQ SCH (20:35)
[2018-08-22] MEDS: PANTOPRAZOLE 40 MG TABLET PO SCH (20:35)
[2018-08-22] MEDS: PRAVASTATIN SODIUM 20 MG TAB PO SCH (20:35)
--- NOTE | 2018-08-22 23:17 | HP ---
HISTORY AND PHYSICAL DATE OF ADMISSION AND SERVICE: 08/22/2018 PRESENTING COMPLAINT: Cough, short of breath. HISTORY OF PRESENTING COMPLAINT: This is a 67-year-old patient of Visiting Physician, Dr. Andrade. Her chronic stable medical conditions include diabetes mellitus, type 2, chronic fibromyalgia, hyperlipidemia, hypertension, osteoarthritis, obesity, bilateral paraplegia from a spinal injury in 2006, urinary stress incontinence, obstructive sleep apnea; uses a BiPAP. Patient presents with a few days of increasing cough, congested, chest tightness, fever, poor appetite, wheezing, tired, rundown, not getting better. Admitted for the same. Still having bouts of coughing. REVIEW OF SYSTEMS: CONSTITUTIONAL: Tired. HEENT: None. RESPIRATORY: As above. CARDIOVASCULAR: None. GASTROINTESTINAL: None. GENITOURINARY: Incontinence. MUSCULOSKELETAL: Pain in the joints. DERMATOLOGICAL: None. HEMATOLOGICAL: None. LYMPHATICS: None. PSYCHIATRY: Anxious. NEUROLOGICAL: Weakness in the lower extremity. PAST MEDICAL HISTORY: 1. Asthma. 2. Chronic hypoxia. 3. Diabetes mellitus, type 2. 4. Fibromyalgia. 5. Hyperlipidemia. 6. Hypertension. 7. Osteoarthritis. 8. Morbid obesity. 9. Bilateral paraplegia from a spinal injury in 2006. 10.Chronic urinary stress incontinence. 11.Obstructive sleep apnea. 12.Chronic Stallings catheter. 13.Shingles. PAST SURGICAL HISTORY: 1. Adenoidectomy. 2. Back surgery. 3. Joint replacement. 4. Neck surgery. 5. Bilateral knee replacement. 6. Fusion T12 to L5. 7. Metal removed. 8. Right foot metatarsal bone broken. 9. Bilateral carpal tunnel surgery. 10.Left hand basal cell carcinoma removed. 11.Umbilical hernia surgery. 12.Bilateral cataracts. PSYCH HISTORY: Depression. SOCIAL HISTORY: Has a Summer lift, electric wheelchair, home oxygen 2 L. FAMILY HISTORY: Both parents had lung cancer. HOME MEDICATIONS: 1. Glucophage 1000 mg b.i.d. 2. Iron 145 mg p.o. daily. 3. Senna 25.8 mg p.o. b.i.d. 4. Pravachol 20 mg at bedtime. 5. MiraLAX 17 grams p.o. q.72 hours. 6. Prilosec 20 mg at bedtime. 7. Singulair 10 mg p.o. daily. 8. Lactulose 20 grams p.o. q.12 p.r.n. 9. DuoNeb q.4. 10.Lantus 40 units subcutaneously at bedtime. 11.Humalog per scale. 12.[place] 5 one tablet q.8 p.r.n. 13.Neurontin 300 mg at bedtime. 14.Lasix 80 mg p.o. daily. 15.Colace 100 mg b.i.d. 16.Celexa 10 mg p.o. daily. 17.Vitamin D3 2000 units p.o. daily. 18.Zyrtec 10 mg p.o. daily. 19.Celebrex 200 mg p.o. daily. 20.Pulmicort 1 mg inhalation b.i.d. 21.Baclofen 10 mg b.i.d. 22.Aspirin 81 mg at bedtime. 23.Vitamin C 1000 mg p.o. daily at noon. 24.Augmentin 875 one tablet p.o. q.12. 25.Ventolin HFA 2 puffs q.4 p.r.n. ALLERGIES: 1. ACYCLOVIR. 2. AMPICILLIN. 3. KEFLEX. 4. CEPHALOSPORIN. 5. ERYTHROMYCIN. 6. FAMCICLOVIR. 7. MEROPENEM. 8. NITROFURANTOIN. 9. UNASYN. 10.BACTRIM. PHYSICAL EXAMINATION: Temperature 99, pulse 105, respiration 16, blood pressure 116/88, pulse ox 93% on CPAP. GENERAL APPEARANCE: Well built; BMI 59.3. Sitting up, short of breath. Anxious. EYES: Pupils equal. Conjunctivae normal. HEENT: External appearance of nose and ears normal. Oral cavity normal. NECK: Soft, thick. JVD unable to assess. Mass not palpable. RESPIRATORY: Effort increased. LUNGS: Diminished breath sounds. Prolonged expiration and wheezing. Accessory muscles are working. Not able to speak in full sentences. CARDIOVASCULAR: First and second sounds normal. Minimal edema. ABDOMEN: Distended. Soft. Liver and spleen not palpable. LYMPHATIC: No lymph node palpable in neck or axillae. PSYCHIATRY: Alert and oriented x3. Mood and affect anxious-appearing. NEUROLOGICAL: Pupils equal. Cranial nerves grossly intact. Decreased power in both lower extremities. Some sensation is present. INVESTIGATIONS: White count 6.8, hemoglobin 10.3, potassium 4.6, BUN 33, creatinine 1.01. ProBNP 537. EKG tracing, personally reviewed by me, shows sinus tachycardia. Chest x-ray film, personally reviewed by me, shows a somewhat under penetrated film with some interstitial prominence. Chest CTA: Ground-glass opacity in the right middle lobe, eroded-appearing T12 vertebral body. ASSESSMENT: 1. Acute exacerbation of moderate persistent asthma secondary to probably pneumonitis that could be viral. Cannot rule out bacterial cause. 2. Chronic hypoxic respiratory failure. 3. Diabetes mellitus, type 2, chronically on insulin. 4. Chronic fibromyalgia. 5. Hyperlipidemia. 6. Essential hypertension. 7. Primary osteoarthritis. 8. Morbid obesity with body mass index more than 50. 9. Chronic bilateral paraplegia from spinal injury in 2006. 10.Chronic urinary stress incontinence. 11.Obstructive sleep apnea. Uses a BiPAP. 12.Normocytic anemia, cause undetermined. 13.Abnormal T12 on the chest CTA; needs to be further characterized. PLAN: Patient is put on nebulized bronchodilators, IV steroids, inhaled steroids. Home medications are resumed. Accu-Cheks will be closely followed. I will give Lovenox for DVT prophylaxis. Will get a plain x-ray of the T12 vertebral body. Care was discussed with the patient. Questions were answered. MMODL / IJN: [id number] /
[2018-08-23] MEDS: IPRATROPIUM-ALBUTEROL 3 ML NEB INHALATION SCH ×6 (00:23→20:15)
[2018-08-23 07:29] LABS: Glucose,Whole Blood 142 mg/dL (75-99)
[2018-08-23] MEDS: BUDESONIDE 0.5 MG/2 ML NEBU INHALATION SCH ×2 (07:48→20:13)
[2018-08-23] MEDS ORDERED: IPRATROPIUM-ALBUTEROL 3 ML NEB INHALATION PRN (07:49)
[2018-08-23] MEDS: INSULIN ASPART (NovoLOG) 100 UNIT/ML VIAL SQ SCH ×4 (08:07→21:43)
[2018-08-23] MEDS: SENNOSIDES 8.6 MG TAB PO SCH ×2 (08:09→21:42)
[2018-08-23] MEDS: metFORMIN 500 MG TAB PO SCH ×2 (08:09→21:42)
[2018-08-23] MEDS: CHOLECALCIFEROL 1,000 UNIT TAB PO SCH (08:09)
[2018-08-23] MEDS: FUROSEMIDE 80 MG TAB PO SCH (08:10)
[2018-08-23] MEDS: DOCUSATE 100 MG CAP PO SCH ×2 (08:10→21:42)
[2018-08-23] MEDS: MONTELUKAST 10 MG TAB PO SCH (08:10)
[2018-08-23] MEDS: methylPREDNISolone SOD SUCCI 40 MG/ML 1 ML VIAL IV SCH ×3 (08:10→22:55)
[2018-08-23] MEDS: LORATADINE 10 MG TAB PO SCH (08:10)
[2018-08-23] MEDS: ASCORBIC ACID 500 MG TAB PO SCH (08:10)
[2018-08-23] MEDS: BACLOFEN 10 MG TAB PO SCH ×2 (08:10→21:42)
[2018-08-23] MEDS: MELOXICAM 7.5 MG TAB PO SCH (08:10)
[2018-08-23] MEDS: CITALOPRAM HYDROBROMIDE 10 MG TAB PO SCH (08:10)
[2018-08-23] MEDS: FERROUS SULFATE 325 MG TAB PO SCH (08:10)
--- NOTE | 2018-08-23 10:20 | XR ---
EXAMINATION TYPE: XR thoracic spine 2V DATE OF EXAM: 08/23/2018 COMPARISON: 01/29/2013 HISTORY: Pain Exam is nondiagnostic due to technique. Lateral view demonstrates markedly limited resolution. Grossl y there appears be evidence of previous vertebroplasty and multilevel degenerative disc disease. Lung space disease in the right middle lobe and bilateral lower lobe suspected. Frontal view demonstrates a central venous catheter and postsurgical change overlying the cervical spine. Curvature the spine noted. IMPRESSION: 1. Nondiagnostic exam. Correlate with CT scan if there is clinical indication. 2. Bilateral consolidation within the lungs.
[2018-08-23 11:55] LABS: Glucose,Whole Blood 170 mg/dL (75-99)
--- NOTE | 2018-08-23 13:52 | CDI ---
Documentation Clarification Form Date: 08/23/2018 From: Brianna Callejas Admit Date: 08/22/2018 4:05:00 AM Patient Name: Sherry De Leon Visit Number: [id number] Discharge Date: ATTENTION: The Clinical Documentation Specialists (CDI) and [facility] Coding Staff appreciate your assistance in clarifying documentation. Please respond to the clarification below the line at the bottom and electronically sign. The CDI & [facility] Coding staff will review the response and follow-up if needed. Please note: Queries are made part of the Legal Health Record. If you have any questions, please contact the author of this message via ITS. Dr. Dony Rodriguez The patient presented to the ED via EMS with worsening shortness of breath had to wear home bipap mask. History/Risk Factors: 67 year old female with a Medical History of CHF COPD, ASTHMA, DM Tobacco use: Former Home oxygen: 2L Clinical Indicators: At admission 93% CPAP Vital signs:08/22/2018 132/80 105 24 94% 4L 08/23/2018 157/80 91 97.6 20 95% bipap Lung/Breathing assessment: Diminished breath sounds. Prolonged expiration and wheezing . Accessory muscles are working . Not able to speak full sentences. Treatment: Solumedrol, Singulair, Duoneb Oxygen Tx - 08/22/2018 4L 94% nasal canula 08/23/2018 Bipap 95% In your professional opinion, can you please clarify if these findings signify one of the following conditions? * Acute on Chronic Hypoxic Respiratory Failure * Chronic Hypoxic Respiratory Failure * Other Diagnosis, please specify * Unable to determine (Last Revision: July 2017) acute on chronic hypoxic respiratory failure,POA MTDD
--- NOTE | 2018-08-23 14:09 | CDI ---
Documentation Clarification Form Date: 08/23/2018 1:52:46 PM From: Brianna Callejas RN CCDS Admit Date: 08/22/2018 4:05:00 AM Patient Name: Sherry De Leon Visit Number: [id number] Discharge Date: ATTENTION: The Clinical Documentation Specialists (CDI) and [facility] Coding Staff appreciate your assistance in clarifying documentation. Please respond to the clarification below the line at the bottom and electronically sign. The CDI & [facility] Coding staff will review the response and follow-up if needed. Please note: Queries are made part of the Legal Health Record. If you have any questions, please contact the author of this message via ITS. Dr. Dony Rodriguez CHF is documented in the ED medical history. History/Risk Factors: 67year old female presents to the ED with worsening shortness of breath and cough. Clinical Indicators: VS/Pulse OX: 161/88 105 99.0 16 93% CPAP BNP: 537 CT Angio Chest Nonspecific groundglass opacity involving the right middle lobe, possibly infectious or inflammatory in etiology. Treatment: Lasix po 80mg In your professional opinion, can you please clarify the acuity and type of CHF if known? * Chronic Systolic Heart Failure: * Chronic Diastolic Heart Failure: * Chronic Systolic & Diastolic Heart Failure: * CHF ruled out * Unable to Determine * Other, please specify (Last Revision: July 2017) unable to determine MTDD
[2018-08-23] MEDS: OSELTAMIVIR 60 MG/10 ML ORAL SYRINGE PO SCH ×2 (15:24→22:55)
[2018-08-23 16:55] LABS: Glucose,Whole Blood 143 mg/dL (75-99)
[2018-08-23 20:25] LABS: Glucose,Whole Blood 204 mg/dL (75-99)
[2018-08-23] MEDS: PANTOPRAZOLE 40 MG TABLET PO SCH (21:42)
[2018-08-23] MEDS: GABAPENTIN 300 MG CAP PO SCH (21:42)
[2018-08-23] MEDS: ASPIRIN 81 MG PO SCH (21:42)
[2018-08-23] MEDS: PRAVASTATIN SODIUM 20 MG TAB PO SCH (21:43)
[2018-08-23] MEDS: INSULIN DETEMIR (LEVEMIR) 100 UNIT/ML SYR SQ SCH (21:43)
[2018-08-24] MEDS: IPRATROPIUM-ALBUTEROL 3 ML NEB INHALATION SCH ×6 (00:09→20:27)
[2018-08-24 07:13] LABS: Glucose,Whole Blood 133 mg/dL (75-99)
[2018-08-24] MEDS: methylPREDNISolone SOD SUCCI 40 MG/ML 1 ML VIAL IV SCH ×3 (07:27→23:21)
[2018-08-24] MEDS: BUDESONIDE 0.5 MG/2 ML NEBU INHALATION SCH ×2 (07:27→20:27)
[2018-08-24] MEDS: INSULIN ASPART (NovoLOG) 100 UNIT/ML VIAL SQ SCH ×4 (07:27→21:00)
[2018-08-24] MEDS: BACLOFEN 10 MG TAB PO SCH ×2 (07:27→21:02)
[2018-08-24] MEDS: DOCUSATE 100 MG CAP PO SCH ×2 (07:28→21:02)
[2018-08-24] MEDS: metFORMIN 500 MG TAB PO SCH ×2 (07:28→21:01)
[2018-08-24] MEDS: LORATADINE 10 MG TAB PO SCH (07:28)
[2018-08-24] MEDS: CITALOPRAM HYDROBROMIDE 10 MG TAB PO SCH (07:28)
[2018-08-24] MEDS: MONTELUKAST 10 MG TAB PO SCH (07:28)
[2018-08-24] MEDS: ACETAMINOPHEN TAB 325 MG TAB PO PRN (07:28)
[2018-08-24] MEDS: CHOLECALCIFEROL 1,000 UNIT TAB PO SCH (07:28)
[2018-08-24] MEDS: OSELTAMIVIR 60 MG/10 ML ORAL SYRINGE PO SCH ×2 (07:29→21:01)
[2018-08-24] MEDS: POLYETHYLENE GLYCOL 3350 17 GM POWD.PACK PO SCH ×2 (07:29→07:36)
[2018-08-24 08:13] LABS: Anisocytosis Slight; Basophils % (A) 0 %; Eosinophils % (A) 0 %; HCT 31.1 % (34.0-46.0); HGB 9.9 gm/dL (11.4-16.0); Hypochromasia Slight; Lymphocytes # (A) 2.5 k/uL (1.0-4.8); Lymphocytes % (A) 25 %; MCH 28.1 pg (25.0-35.0); MCHC 31.8 g/dL (31.0-37.0); MCV 88.5 fL (80.0-100.0); Monocytes # (A) 0.5 k/uL (0-1.0); Monocytes % (A) 5 %; Neutrophils # (A) 6.4 k/uL (1.3-7.7); Neutrophils % (A) 66 %; Platelet Count 277 k/uL (150-450); RBC 3.52 m/uL (3.80-5.40); RDW 16.7 % (11.5-15.5); WBC 9.7 k/uL (3.8-10.6)
[2018-08-24 08:27] LABS: Calcium 9.3 mg/dL (8.4-10.2); Potassium 4.1 mmol/L (3.5-5.1)
[2018-08-24] MEDS: MELOXICAM 7.5 MG TAB PO SCH (08:57)
[2018-08-24] MEDS: FUROSEMIDE 80 MG TAB PO SCH (08:57)
[2018-08-24] MEDS: SENNOSIDES 8.6 MG TAB PO SCH ×2 (10:54→21:02)
[2018-08-24] MEDS: FERROUS SULFATE 325 MG TAB PO SCH (10:54)
[2018-08-24] MEDS ORDERED: LEVOFLOXACIN 750MG-D5W PMX 750 MG in DEXTROSE/WATER 1 150ML.BAG IVPB SCH (11:00)
[2018-08-24] MEDS: ASCORBIC ACID 500 MG TAB PO SCH (11:12)
[2018-08-24 11:49] LABS: Glucose,Whole Blood 189 mg/dL (75-99)
--- NOTE | 2018-08-24 12:07 | P.CNPUL ---
History of Present Illness Consult date: 08/24/18 Requesting physician: Dony Rodriguez Reason for consult: dyspnea, cough, pneumonia Chief complaint: Shortness of breath, cough History of present illness: This is a 67-year-old female, with multiple medical problems including bilateral paraplegia since she had spinal surgery in 2006. Patient is also known to have type 2 diabetes, obesity, fibromyalgia, urinary stress incontinence, obstructive sleep apnea syndrome maintained on BiPAP, patient is usually followed by a visiting physician. Patient was last admitted to the hospital in March of 2018, and at that time she was seen for acute exacerbation of asthma and tracheobronchitis. Her other medical problems included at the time urinary tract infection secondary to ESBL E. coli, and Pseudomonas. This time, the patient was admitted mostly with a few days' history of increased cough, congestion, chest tightness, wheezing, fevers, but no chills, poor appetite, and felt sort of run down. Upon admission, the patient had a chest CT of the chest, ruled out pulmonary embolism. There was no evidence of effusions, she was found to have some enlarged axillary and mediastinal right hilar lymph nodes, nonspecific, she was also found to have sclerotic changes on T12 vertebral body hence a PET scan was recommended. Pulmonary-nguyen she was found to have groundglass opacity in the right middle lobe suggestive of pneumonia. Patient has significant ALLERGIES to different antibiotics, hence I chose to start the patient on Levaquin. Review of Systems Constitutional: Denies weight loss, did have fevers and night sweats. Eyes: Denies diplopia blurred vision. Ears: Denies earache nose, mouth and throat: Denies sore throat, no nasal discharge, . Cardiovascular: Presently denies any chest pain, no palpitations, no orthopnea, no PND. Respiratory: As noted in HPI. Productive cough and shortness of breath. Gastrointestinal: Denies nausea vomiting abdominal pain melena or hematemesis. Genitourinary: Denied dysuria frequency urgency. Musculoskeletal: Patient is known to have paraplegia since 2006. Integumentary: Denies any rashes Neurological: No headache no blurred vision no dizziness.. Psychiatric: Denies symptoms of active depression Endocrine: Denies heat or cold intolerance. Hematologic: Denies clotting bleeding or bruising. Past Medical History Past Medical History: Asthma, COPD, Diabetes Mellitus, Fibromyalgia, GERD/Reflux, Hyperlipidemia, Hypertension, Osteoarthritis (OA), Pneumonia, Sleep Apnea/CPAP/BIPAP Additional Past Medical History / Comment(s): IDC, FREQ UTI. anemia; osteopenia; parapalegic "R/T SPINAL SURG 2006, AND AMBULANCE INJURY LATER", obstructive sleep apnea, chronic Stallings catheter, shingles History of Any Multi-Drug Resistant Organisms: ESBL Date of last positivie culture/infection: 04/17/18 MDRO Source:: Urine ESBL Past Surgical History: Adenoidectomy, Back Surgery, Joint Replacement, Orthopedic Surgery, Tonsillectomy Additional Past Surgical History / Comment(s): Neck surgery, ZAY KNEE REPLACEMENT, FUSION T-12 TO L-5 METAL REMOVED, L5 TO S1 - AND REFUSED,KNEE ARTHROSCOPY X3. RT FOOT METATRSAL BROKEN, BIOPSY ON ZAY BREAST-NEG, ZAY CARPAL TUNNEL, LT HAND BASAL. ARTHROSOCPY,UMBILICAL HERNIA, GARZA 09/2012; LAPROSCOPY, B CATARACTS. Garza removed Past Anesthesia/Blood Transfusion Reactions: Family History of Problems w/ Anesthesia, Postoperative Nausea & Vomiting (PONV) Additional Past Anesthesia/Blood Transfusion Reaction / Comment(s): HAD BLOOD TRANSFUSION IN PAST. SISTER HAD PROB BREATHING AFTER SURG. Past Psychological History: Depression Additional Psychological History / Comment(s): Lives in the family home. She has a visiting physician. Has family members that help her. She is on a bariatric air bed at home. She also has Summer lift, electric wheelchair, nebulizer, BiPAP and home oxygen at 2 L nasal cannula. Garza taken out 03/26/18 @ [facility] Smoking Status: Former smoker Past Alcohol Use History: None Reported Additional Past Alcohol Use History / Comment(s): Patient lives in the family home. He is visiting physicians. Patient has family members that help her. She has a bariatric bed at home, where left, electric wheelchair, nebulizer, B iPAP and home oxygen at 2 L nasal cannula. Past Drug Use History: None Reported - Past Family History Father Family Medical History: Cancer Additional Family Medical History / Comment(s): LUNG CA - BOTH PARENTS Mother Family Medical History: Cancer Medications and Allergies Home Medications Medication Instructions Recorded Confirmed Type Ascorbic Acid [Vitamin C] 1,000 mg PO DAILY@1200 10/22/13 08/22/18 History Aspirin 81 mg PO HS 10/22/13 08/22/18 History Baclofen [Lioresal] 10 mg PO BID 10/22/13 08/22/18 History Furosemide [Lasix] 80 mg PO DAILY 10/22/13 08/22/18 History Montelukast Sodium [Singulair] 10 mg PO DAILY 10/22/13 08/22/18 History Albuterol Inhaler [Ventolin Hfa 2 puff INHALATION RT-Q4H PRN 06/12/16 08/22/18 History Inhaler] Citalopram Hydrobromide [CeleXA] 10 mg PO DAILY 06/12/16 08/22/18 History Omeprazole [PriLOSEC] 20 mg PO HS 05/16/17 08/22/18 History Slow Release Iron 145mg 145 mg PO DAILY 05/16/17 08/22/18 History Gabapentin [Neurontin] 300 mg PO HS 04/10/18 08/22/18 History HYDROcodone/APAP 5-325MG [Eleanor 1 tab PO Q8H PRN 04/10/18 08/22/18 History 5-325] Ipratropium-Albuterol Nebulize 3 ml INHALATION RT-Q4H 04/10/18 08/22/18 History [Duoneb 0.5 mg-3 mg/3 ml Soln] Lactulose 20 gm PO Q2H PRN 04/10/18 08/22/18 History Polyethylene Glycol 3350 [Miralax] 17 gm PO Q72H 04/10/18 08/22/18 History Pravastatin Sodium [Pravachol] 20 mg PO HS 04/10/18 08/22/18 History Sennosides [Senna] 25.8 mg PO BID@1200,2100 04/10/18 08/22/18 History Budesonide [Pulmicort] 1 mg INHALATION RT-BID #60 nebu 04/29/18 08/22/18 Rx Amoxic-Pot Clav 875-125Mg 1 tab PO Q12HR 08/22/18 08/22/18 History [Augmentin 875-125] Celecoxib [CeleBREX] 200 mg PO DAILY 08/22/18 08/22/18 History Cetirizine HCl [Zyrtec] 10 mg PO DAILY 08/22/18 08/22/18 History Cholecalciferol (Vitamin D3) 2,000 unit PO DAILY 08/22/18 08/22/18 History [Vitamin D3] Docusate [Colace] 100 mg PO BID 08/22/18 08/22/18 History INSULIN LISPRO (humaLOG) [humaLOG] See Protocol SQ AC-TID 08/22/18 08/22/18 History Insulin Glargine [Lantus] 40 unit SQ HS 08/22/18 08/22/18 History metFORMIN HCL [Glucophage] 1,000 mg PO BID 08/22/18 08/22/18 History Allergies Allergy/AdvReac Type Severity Reaction Status Date / Time acyclovir Allergy Rash/Hives Verified 08/22/18 08:03 ampicillin [From Unasyn] Allergy Dyspnea Verified 08/22/18 08:03 cephalexin [Cephalexin] Allergy Rash/Hives Verified 08/22/18 08:03 cephalexin monohydrate Allergy Rash/Hives Verified 08/22/18 08:03 [From Keflex] Cephalosporins Allergy Unknown Verified 08/22/18 08:03 erythromycin base Allergy Unknown Verified 08/22/18 08:03 famciclovir Allergy Rash/Hives Verified 08/22/18 08:03 meropenem [From Merrem] Allergy Anaphylaxis Verified 08/22/18 08:03 nitrofurantoin Allergy Unknown Verified 08/22/18 08:03 [From Macrobid] nitrofurantoin Allergy Unknown Verified 08/22/18 08:03 macrocrystalline [From Macrobid] sulbactam [From Unasyn] Allergy Dyspnea Verified 08/22/18 08:03 sulfamethoxazole Allergy Unknown Verified 08/22/18 08:03 [From Bactrim] trimethoprim [From Bactrim] Allergy Unknown Verified 08/22/18 08:03 Physical Exam Vitals: Vital Signs Temp Pulse Pulse Resp BP Pulse Ox 08/24/18 11:44 74 08/24/18 07:40 78 08/24/18 07:27 76 08/24/18 05:10 84 08/24/18 04:58 84 08/24/18 04:15 98.0 F 87 18 139/76 93 L 08/24/18 00:30 84 08/24/18 00:10 84 08/23/18 20:27 88 08/23/18 20:25 98.7 F 95 18 137/88 94 L 08/23/18 20:16 88 08/23/18 15:30 90 08/23/18 15:17 90 08/23/18 12:40 98.2 F 93 18 119/65 94 L Intake and Output 08/23/18 08/24/18 08/24/18 22:59 06:59 14:59 Intake Total 540 Output Total 450 1300 Balance 90 -1300 Intake: Oral 540 Output: Urine 450 1300 Other: Voiding Method Indwelling Catheter Indwelling Catheter # Bowel Movements 1 1 Physical Exam: Revealed a 67-year-old female, morbidly obese, sitting in bed, in no distress. On 4 L nasal cannula Head: Slightly cushingoid, atraumatic, normocephalic HEENT: Short obese neck [Neck is supple.] [No neck masses.] [No thyromegaly.] [No JVD.] Chest: [Diminished breath sound at the bases, no rhonchi and no crackles no wheezes.] Cardiac Exam:[Normal S1 and S2, no S3 gallop, no murmur.] Abdomen: [Morbidly obese, Soft, nontender, no megaly, no rebound, no guarding, normal bowel sounds.] Extremities: [No clubbing, trace of bipedal edema, no cyanosis.] Neurological Exam: [Alert oriented 3, however] Patient is paraplegic. From the waist down. Psychiatric: Normal mood, affect and mental status examination. Results - Laboratory Findings CBC and BMP: 08/24/18 07:53 08/24/18 07:53 PT/INR, D-dimer PT 9.7 sec (9.0-12.0) 08/22/18 00:42 INR 0.9 (<1.2) 08/22/18 00:42 D-Dimer 0.69 mg/L FEU (<0.60) H 08/22/18 00:42 Abnormal lab findings: Abnormal Labs 08/22/18 08/22/18 08/22/18 00:42 00:42 00:42 RBC 3.62 L Hgb 10.3 L Hct 31.4 L RDW 16.8 H D-Dimer 0.69 H Carbon Dioxide 35 H BUN 33 H Creatinine Glucose POC Glucose (mg/dL) Influenza Type A RNA 08/22/18 08/22/18 08/22/18 12:10 16:59 20:07 RBC Hgb Hct RDW D-Dimer Carbon Dioxide BUN Creatinine Glucose POC Glucose (mg/dL) 161 H 205 H 196 H Influenza Type A RNA 08/23/18 08/23/18 08/23/18 07:18 11:42 14:30 RBC Hgb Hct RDW D-Dimer Carbon Dioxide BUN Creatinine Glucose POC Glucose (mg/dL) 142 H 170 H Influenza Type A RNA Detected H 08/23/18 08/23/18 08/24/18 16:41 20:23 07:10 RBC Hgb Hct RDW D-Dimer Carbon Dioxide BUN Creatinine Glucose POC Glucose (mg/dL) 143 H 204 H 133 H Influenza Type A RNA 08/24/18 08/24/18 08/24/18 07:53 07:53 11:47 RBC 3.52 L Hgb 9.9 L Hct 31.1 L RDW 16.7 H D-Dimer Carbon Dioxide 37 H BUN 49 H Creatinine 1.06 H Glucose 108 H POC Glucose (mg/dL) 189 H Influenza Type A RNA - Diagnostic Findings CT scan - chest: image reviewed (As noted in HPI) Assessment and Plan Assessment: Impression: 1 acute community-acquired pneumonia involving right middle lobe as noted on CT of the chest. 2 reactive hilar adenopathy, however the possibility of malignancy is not entirely ruled out, and the patient will need a repeat CT of the chest in the next 4 months. 3 acute exacerbation of moderate persistent asthma 4 type 2 diabetes, maintained on insulin. 5 morbid obesity with BMI more than 50 6 obstructive sleep apnea syndrome maintained on BiPAP 7 benign essential hypertension 8 fibromyalgia 9 chronic paraplegia since 2006, related to previous spinal injury Recommendation: I fully agree with the present treatment plan including antibio tics, bronchodilators, steroids, consider repeat CT of the chest in 3-4 months post discharge, or consider a PET scan on outpatient basis. The findings on the CT of the chest are nonspecific, could be reactive lymphadenopathy in nature, however possibility of underlying malignancy is not entirely ruled out. We'll continue to follow Time with Patient: Greater than 30
--- NOTE | 2018-08-24 12:43 | PN ---
PROGRESS NOTE DATE OF SERVICE: 08/23/2018 PRESENTING COMPLAINT: Short of breath, cough. INTERVAL HISTORY: This patient was seen by me yesterday morning. Patient admitted with acute asthma exacerbation. Patient is using a BiPAP. Breathing somewhat better. The patient's influenza A came back positive, but nurse called me that patient does not want to use Tamiflu. REVIEW OF SYSTEMS: Done for constitutional, cardiovascular, GI, pulmonary; relevant findings as above. CURRENT MEDICATIONS: Current medications are reviewed that include DuoNeb, IV Solu-Medrol. PHYSICAL EXAMINATION: On examination, temperature 98.2, pulse 93, respiration 18, blood pressure 119/65, pulse ox 94% on 4 L. GENERAL APPEARANCE: Lying in bed, tired appearing, using a BiPAP. EYES: Pupils equal. Conjunctivae normal. NECK: JVD unable to assess. Mass not palpable. RESPIRATORY: Effort increased. LUNGS: Diminished breath sounds, prolonged expiration, decreased wheezing. CARDIOVASCULAR: First and second sounds normal. No edema. ABDOMEN: Soft, nontender. Liver and spleen not palpable. PSYCHIATRY: Alert and oriented x3. Mood affect tired appearing. NEUROLOGICAL: Decreased power in both lower extremities. INVESTIGATIONS: Accu-Cheks are noted. Influenza type A RNA positive. ASSESSMENT: 1. Acute exacerbation of moderate persistent asthma secondary to influenza A pneumonitis. 2. Chronic hypoxic respiratory failure. 3. Diabetes mellitus type 2, chronically on insulin. 4. Chronic fibromyalgia. 5. Hyperlipidemia. 6. Essential hypertension. 7. Primary osteoarthritis. 8. Morbid obesity, body mass index more than 30. 9. Chronic bilateral paraplegia from spinal injury in 2006. 10.Chronic urinary stress incontinence. 11.Obstructive sleep apnea, uses a BiPAP. 12.Normocytic anemia, cause undetermined. 13.Abnormal T12 on the chest CTA. PLAN: Continue current medication and treatment plan including Solu-Medrol. We will get a pulmonary opinion. Nurse had called me later in the day that the patient had refused to take the Tamiflu. MMODL / IJN: [id number] /
[2018-08-24] MEDS ORDERED: ALPRAZolam 0.25 MG TAB PO PRN (14:44)
[2018-08-24 17:14] LABS: Glucose,Whole Blood 133 mg/dL (75-99)
--- NOTE | 2018-08-24 18:28 | PN ---
PROGRESS NOTE DATE OF SERVICE: 08/24/2018 This 67-year-old woman was admitted with shortness of breath and cough, has asthma acute exacerbation as well as acute pneumonitis. The patient is started on broad- spectrum antibiotics and as well as steroids as well as antivirals. The CT scan of the chest to rule out possible pulmonary embolism. Reactive hilar adenopathy was noted. The patient being closely monitored. The patient also had thoracic spine x-rays because of pain showed which was nondiagnostic. Bilateral consolidations were noted. PAST MEDICAL HISTORY: Reviewed. REVIEW OF SYSTEMS: CARDIOVASCULAR: No angina or palpitations. RESPIRATION: As mentioned earlier. GI no nausea or vomiting. : No dysuria. CENTRAL NERVOUS SYSTEM: No numbness or weakness. CURRENT MEDICATIONS: Reviewed and include: 1. Tylenol 650 q.6h p.r.n. 2. [place] 5 mg q8.p.m. 3. DuoNeb q.i.d. p.r.n. 4. Xanax 0.5 t.i.d. 5. Vitamin C 1000 daily. 6. Aspirin 81 mg q.h.s. 7. Lioresal 10 mg b.i.d. 8. Pulmicort 0.5 b.i.d. 9. Vitamin D3. 10.Celexa 10 mg. 11.Colace 60 mg p.o. b.i.d. 12.Iron sulfate 320 mg daily. 13.Perforomist 1 puff b.i.d. 14.Lasix 80 mg p.o. daily. 15.Neurontin 300 mg q.h.s. 16.Heparin b.i.d. 17.Levemir 40 units subcu q.h.s. 18.Lactulose 20 g b.i.d. 19.Claritin 10 mg daily. 20.Mobic 7.5 daily. 21.Glucophage 1000 mg b.i.d. 22.Solu-Medrol 40 IV q.8. 23.Singulair 10 mg p.o. daily. 24.Tamiflu 30 mg b.i.d. 25.Protonix 40 mg q.h.s. 26.MiraLAX. 27.Pravachol. 28.Senokot. PHYSICAL EXAM: Patient is alert, oriented x3. Pulse 96, blood pressure 140/81, respiration 18, temperature 98.4, pulse ox 93% on 4 L. HEENT: Conjunctivae normal. Oral mucosa moist. NECK is no jugular venous distention. No carotid bruit. No lymph node enlargement. CARDIOVASCULAR: S1, S2 muffled. RESPIRATORY: Breath sounds diminished in the bases. Bilateral scattered rhonchi and crackles. Expiratory wheezing also present. ABDOMEN: Soft, obese, nontender. Legs are no edema, no swelling. LAB STUDIES: WBC 9.6, hemoglobin 9.9, sodium 148, potassium 4.1. ASSESSMENT: 1. Acute exacerbation of asthma. 2. Acute influenza A. 3. Acute community-acquired pneumonia involving the right middle lobe. 4. Possibly gram-negative. 5. Diabetes mellitus type 2, chronically on insulin. 6. Chronic fibromyalgia. 7. Hyperlipidemia. 8. Essential hypertension. 9. Degenerative joint disease. 10.Morbid obesity. 11.Chronic bilateral paraplegia with spine injury. 12.Chronic urinary incontinence. 13.Obstructive sleep apnea on BIPAP. 14.Normocytic anemia. 15.Abnormal on the chest CTA. RECOMMENDATIONS AND DISCUSSION: This 67-year-old woman who presented with multiple complex medical issues, we will monitor the patient closely. Continue the current medications, management and symptomatic treatment. Otherwise, we will continue the bronchodilators. We will optimize bronchodilators and continue steroids. Monitor blood sugars closely. Empiric antibiotics. Otherwise guarded prognosis because of multiple complex medical issues. Further recommendations to follow. Otherwise I would also recommend a CT scan of the dorsal vertebra, especially to elicit D12 changes. Guarded prognosis because of multiple complex medical issues. Further recommendations to follow. MMODL / IJN: [id number] / TIM
[2018-08-24] MEDS ORDERED: IPRATROPIUM-ALBUTEROL 3 ML NEB ONE (20:22)
[2018-08-24] MEDS: FORMOTEROL FUMARATE 20 MCG/2 ML NEBU INHALATION SCH (20:27)
[2018-08-24 20:57] LABS: Glucose,Whole Blood 254 mg/dL (75-99)
[2018-08-24] MEDS: INSULIN DETEMIR (LEVEMIR) 100 UNIT/ML SYR SQ SCH (21:01)
[2018-08-24] MEDS: HEPARIN SODIUM,PORCINE 5,000 UNIT/ML 1 ML VIAL SQ SCH (21:01)
[2018-08-24] MEDS: ASPIRIN 81 MG PO SCH (21:02)
[2018-08-24] MEDS: PANTOPRAZOLE 40 MG TABLET PO SCH (21:02)
[2018-08-24] MEDS: GABAPENTIN 300 MG CAP PO SCH (21:02)
[2018-08-24] MEDS: PRAVASTATIN SODIUM 20 MG TAB PO SCH (21:03)
[2018-08-25] MEDS: IPRATROPIUM-ALBUTEROL 3 ML NEB INHALATION SCH ×7 (00:23→23:53)
[2018-08-25 06:55] LABS: Glucose,Whole Blood 158 mg/dL (75-99)
[2018-08-25 08:07] LABS: Anisocytosis Slight; Basophils % (A) 0 %; Eosinophils % (A) 0 %; HCT 31.4 % (34.0-46.0); HGB 9.3 gm/dL (11.4-16.0); Hypochromasia Slight; Lymphocytes # (A) 1.7 k/uL (1.0-4.8); Lymphocytes % (A) 20 %; MCH 26.1 pg (25.0-35.0); MCHC 29.6 g/dL (31.0-37.0); MCV 88.1 fL (80.0-100.0); Mean Platelet Volume 6.8; Monocytes # (A) 0.4 k/uL (0-1.0); Monocytes % (A) 5 %; Neutrophils # (A) 6.1 k/uL (1.3-7.7); Neutrophils % (A) 74 %; Platelet Count 294 k/uL (150-450); RBC 3.56 m/uL (3.80-5.40); RDW 16.6 % (11.5-15.5); WBC 8.3 k/uL (3.8-10.6)
[2018-08-25 08:18] LABS: Calcium 9.3 mg/dL (8.4-10.2); Potassium 4.6 mmol/L (3.5-5.1)
[2018-08-25] MEDS: FORMOTEROL FUMARATE 20 MCG/2 ML NEBU INHALATION SCH ×2 (08:48→20:02)
[2018-08-25] MEDS: BUDESONIDE 0.5 MG/2 ML NEBU INHALATION SCH ×2 (08:48→20:02)
[2018-08-25] MEDS: FERROUS SULFATE 325 MG TAB PO SCH (08:49)
[2018-08-25] MEDS: SENNOSIDES 8.6 MG TAB PO SCH ×2 (08:49→21:59)
[2018-08-25] MEDS: INSULIN ASPART (NovoLOG) 100 UNIT/ML VIAL SQ SCH ×4 (08:49→22:01)
[2018-08-25] MEDS: CHOLECALCIFEROL 1,000 UNIT TAB PO SCH (08:50)
[2018-08-25] MEDS: methylPREDNISolone SOD SUCCI 40 MG/ML 1 ML VIAL IV SCH (08:50)
[2018-08-25] MEDS: HEPARIN SODIUM,PORCINE 5,000 UNIT/ML 1 ML VIAL SQ SCH ×2 (08:50→22:00)
[2018-08-25] MEDS: metFORMIN 500 MG TAB PO SCH ×2 (08:50→21:59)
[2018-08-25] MEDS: DOCUSATE 100 MG CAP PO SCH ×2 (08:51→22:00)
[2018-08-25] MEDS: BACLOFEN 10 MG TAB PO SCH ×2 (08:51→22:00)
[2018-08-25] MEDS: MELOXICAM 7.5 MG TAB PO SCH (08:51)
[2018-08-25] MEDS: CITALOPRAM HYDROBROMIDE 10 MG TAB PO SCH (08:51)
[2018-08-25] MEDS: MONTELUKAST 10 MG TAB PO SCH (08:51)
[2018-08-25] MEDS: LORATADINE 10 MG TAB PO SCH (08:51)
[2018-08-25] MEDS: OSELTAMIVIR 60 MG/10 ML ORAL SYRINGE PO SCH ×2 (08:52→22:01)
[2018-08-25] MEDS: ASCORBIC ACID 500 MG TAB PO SCH (08:52)
[2018-08-25] MEDS: FUROSEMIDE 80 MG TAB PO SCH (08:53)
[2018-08-25] MEDS ORDERED: LEVOFLOXACIN 750MG-D5W PMX 750 MG in DEXTROSE/WATER 1 150ML.BAG IVPB SCH (11:00)
[2018-08-25 11:12] LABS: Glucose,Whole Blood 156 mg/dL (75-99)
--- NOTE | 2018-08-25 12:40 | P.PN ---
Subjective Progress Note Date: 08/25/18 Principal diagnosis: acute community-acquired right middle lobe pneumonia This is a 67-year-old female, with multiple medical problems including bilateral paraplegia since she had spinal surgery in 2006. Patient is also known to have type 2 diabetes, obesity, fibromyalgia, urinary stress incontinence, obstructive sleep apnea syndrome maintained on BiPAP, patient is usually followed by a visiting physician. Patient was last admitted to the hospital in March of 2018, and at that time she was seen for acute exacerbation of asthma and tracheobronchitis. Her other medical problems included at the time urinary tract infection secondary to ESBL E. coli, and Pseudomonas. This time, the patient was admitted mostly with a few days' history of increased cough, congestion, chest tightness, wheezing, fevers, but no chills, poor appetite, and felt sort of run down. Upon admission, the patient had a chest CT of the chest, ruled out pulmonary embolism. There was no evidence of effusions, she was found to have some enlarged axillary and mediastinal right hilar lymph nodes, nonspecific, she was also found to have sclerotic changes on T12 vertebral body hence a PET scan was recommended. Pulmonary-nguyen she was found to have groundglass opacity in the right middle lobe suggestive of pneumonia. Patient has significant ALLERGIES to different antibiotics, hence I chose to start the patient on Levaquin. Reevaluated today on 08/25/2018, patient continues to have shortness of breath cough and wheezing. Not feeling much better, patient is on bronchodilators, steroids, antibiotics.patient was advised by Dr. Calixto to have a CT scan of the dorsal vertebral, however the patient declined, and she told him that this has been a chronic finding.CBC is relatively normal hemoglobin is 9.3 left lites are normal BUN is 49 and creatinine is 1.09 Objective - Vital Signs Vital signs: Vital Signs Temp 98.0 F 08/25/18 04:30 Pulse 88 08/25/18 12:15 Resp 20 08/25/18 04:30 BP 133/81 08/25/18 04:30 Pulse Ox 97 08/25/18 08:51 Intake & Output 08/24/18 08/25/18 08/25/18 18:59 06:59 18:59 Intake Total 1050 Output Total 925 1200 Balance 125 -1200 Intake: Oral 1050 Output: Urine 925 1200 Other: Voiding Method Indwelling Catheter Indwelling Catheter - Exam Physical Exam: Revealed a 67-year-old female, morbidly obese, sitting in bed, in no distress. On 4 L nasal cannula, continues to have intermittent episodes of cough and wheezing as well as shortness of breath Head: Slightly cushingoid, atraumatic, normocephalic HEENT: Short obese neck [Neck is supple.] [No neck masses.] [No thyromegaly.] [No JVD.] Chest: [Diminished breath sound at the bases,rhonchi and wheezes noted today bilaterally. Cardiac Exam:[Normal S1 and S2, no S3 gallop, no murmur.] Abdomen: [Morbidly obese, Soft, nontender, no megaly, no rebound, no guarding, normal bowel sounds.] Extremities: [No clubbing, trace of bipedal edema, no cyanosis.] Neurological Exam: [Alert oriented 3, however] Patient is paraplegic. From the waist down. Psychiatric: Normal mood, affect and mental status examination. - Labs CBC & Chem 7: 08/25/18 07:28 08/25/18 07:28 Labs: Abnormal Lab Results - Last 24 Hours (Table) 08/24/18 08/24/18 08/24/18 Range/Units 07:53 07:53 17:13 RBC (3.80-5.40) m/uL Hgb (11.4-16.0) gm/dL Hct (34.0-46.0) % MCHC (31.0-37.0) g/dL RDW (11.5-15.5) % ESR 86 H (0-20) mm/hr Carbon Dioxide (22-30) mmol/L BUN (7-17) mg/dL Creatinine (0.52-1.04) mg/dL Glucose (74-99) mg/dL POC Glucose (mg/dL) 133 H (75-99) mg/dL C-Reactive Protein 17.6 H (<10.0) mg/L 08/24/18 08/25/18 08/25/18 Range/Units 20:56 06:53 07:28 RBC 3.56 L (3.80-5.40) m/uL Hgb 9.3 L (11.4-16.0) gm/dL Hct 31.4 L (34.0-46.0) % MCHC 29.6 L (31.0-37.0) g/dL RDW 16.6 H (11.5-15.5) % ESR (0-20) mm/hr Carbon Dioxide (22-30) mmol/L BUN (7-17) mg/dL Creatinine (0.52-1.04) mg/dL Glucose (74-99) mg/dL POC Glucose (mg/dL) 254 H 158 H (75-99) mg/dL C-Reactive Protein (<10.0) mg/L 08/25/18 08/25/18 Range/Units 07:28 11:11 RBC (3.80-5.40) m/uL Hgb (11.4-16.0) gm/dL Hct (34.0-46.0) % MCHC (31.0-37.0) g/dL RDW (11.5-15.5) % ESR (0-20) mm/hr Carbon Dioxide 33 H (22-30) mmol/L BUN 49 H (7-17) mg/dL Creatinine 1.09 H (0.52-1.04) mg/dL Glucose 130 H (74-99) mg/dL POC Glucose (mg/dL) 156 H (75-99) mg/dL C-Reactive Protein (<10.0) mg/L Assessment and Plan Assessment: Impression: 1 acute community-acquired pneumonia involving right middle lobe as noted on CT of the chest. 2 reactive hilar adenopathy, however the possibility of malignancy is not entirely ruled out, and the patient will need a repeat CT of the chest in the next 4 months. 3 acute exacerbation of moderate persistent asthma 4 type 2 diabetes, maintained on insulin. 5 morbid obesity with BMI more than 50 6 obstructive sleep apnea syndrome maintained on BiPAP 7 benign essential hypertension 8 fibromyalgia 9 chronic paraplegia since 2006, related to previous spinal injury 10 abnormal T12 as noted on the CT of the chest, patient declined having CT of the thoracic spine. Recommendation:continue present supportive care measures including antibiotics, bronchodilators,GI and DVT prophylaxis,methylprednisolone, insulin, we'll continue to follow. Not quite ready for any discharge planning. Time with Patient: Less than 30
[2018-08-25 17:13] LABS: Glucose,Whole Blood 128 mg/dL (75-99)
[2018-08-25] MEDS: methylPREDNISolone SOD SUCCI 125 MG/2 ML VIAL IV SCH ×2 (17:20→23:00)
[2018-08-25 20:14] LABS: Glucose,Whole Blood 286 mg/dL (75-99)
--- NOTE | 2018-08-25 20:54 | PN ---
PROGRESS NOTE DATE OF SERVICE: 08/25/2018 This 67-year-old gentleman admitted with acute exacerbation of bronchial asthma with significant complaints of significant shortness of breath. The patient is also on IV steroids system. Dr. Steele is following the patient closely. Patient is positive for influenza A. Dr. Steele has recommended to continue with supportive care including antibiotics, bronchodilators and GI and DVT prophylaxis. PAST MEDICAL HISTORY: Reviewed. REVIEW OF SYSTEMS: CARDIOVASCULAR: No angina. RESPIRATORY: As mentioned. GI: No nausea. : No dysuria. NERVOUS SYSTEM: No numbness or weakness. CURRENT MEDICATIONS: 1. Tylenol 650 q.6h p.r.n. 2. [place] 5 mg q.8 p.r.n. 3. DuoNeb q.i.d. and p.r.n. 4. Xanax 0.5 t.i.d. 5. Vitamin C 1000 mg. 6. Aspirin 81 mg p.o. daily. 7. Lioresal 10 mg p.o. b.i.d. 8. Pulmicort 0.5 b.i.d. 9. Vitamin D3 2000 daily. 10.Celexa 10 mg p.o. daily. 11.Colace 100 mg p.o. b.i.d. 12.Iron sulfate 320 mg p.o. daily. 13.Perforomist 20 mcg b.i.d. 14.Lasix 80 mg p.o. daily. 15.Neurontin 300 mg q.h.s. 16.Heparin 5 subcu b.i.d. 17.NovoLog scale. 18.Levemir 40 units subcu q.h.s. 19.Cephulac 20 g p.o. b.i.d. 20.Levaquin 750 q.48h. 21.Claritin 10 mg. 22.Mobic 7.5 mg p.o. daily. 23.Glucophage 1000 mg p.o. b.i.d. 24.Solu-Medrol 60 IV q.6. 25.Singulair 10 mg p.o. 26.Tamiflu 30 mg p.o. b.i.d. PHYSICAL EXAMINATION: Patient is alert, oriented x3. Pulse is 92, blood pressure 157/83, respirations 17, temperature 98.8, pulse ox 98% on 4 L. HEENT: Conjunctivae normal. Mucosa moist. Neck is no jugular venous distention. No carotid bruit. No lymph node enlargement. CARDIOVASCULAR: S1, S2 RESPIRATORY: Breath sounds diminished in the bases. Bilateral scattered rhonchi and crackles. Expiratory wheezing also present. ABDOMEN: Soft, obese, nontender. No mass palpable. LEGS: No edema. No swelling. NERVOUS SYSTEM: Higher functions as mentioned. Moves all 4 limbs. No focal motor or sensory deficits. LYMPHATICS: No lymphadenopathy in the neck, axillae, groin. SKIN: No ulcer, rash, bleeding. JOINTS: No active deforming arthropathy. LABS: WBC 8, hemoglobin 9.3. ASSESSMENT: 1. Acute exacerbation of intermittent bronchial asthma. 2. Acute influenza A. 3. Acute community-acquired pneumonia involving the right middle lobe possibly gram- negative. 4. Diabetes mellitus type 2, chronic low insulin. 5. Chronic fibromyalgia. 6. Hyperlipidemia. 7. Hypertension. 8. Degenerative joint disease. 9. Morbid obesity. 10.Chronic bilateral paraplegia with spine injury. 11.Chronic urinary incontinence. 12.Obstructive sleep apnea on BiPAP. 13.Normocytic anemia. 14.Eroded appearing T12 vertebrae in the chest CTA. RECOMMENDATIONS AND DISCUSSION: Prognosis guarded. Further recommendations to follow. MMODL / IJN: [id number] /
[2018-08-25] MEDS: GABAPENTIN 300 MG CAP PO SCH (21:59)
[2018-08-25] MEDS: ASPIRIN 81 MG PO SCH (22:00)
[2018-08-25] MEDS: PRAVASTATIN SODIUM 20 MG TAB PO SCH (22:00)
[2018-08-25] MEDS: PANTOPRAZOLE 40 MG TABLET PO SCH (22:00)
[2018-08-25] MEDS: INSULIN DETEMIR (LEVEMIR) 100 UNIT/ML SYR SQ SCH (23:00)
[2018-08-26] MEDS: IPRATROPIUM-ALBUTEROL 3 ML NEB INHALATION SCH ×6 (03:58→23:54)
[2018-08-26] MEDS: methylPREDNISolone SOD SUCCI 125 MG/2 ML VIAL IV SCH ×3 (05:42→17:49)
[2018-08-26] MEDS: FORMOTEROL FUMARATE 20 MCG/2 ML NEBU INHALATION SCH ×2 (07:03→21:33)
[2018-08-26] MEDS: BUDESONIDE 0.5 MG/2 ML NEBU INHALATION SCH ×2 (07:03→21:33)
[2018-08-26 07:15] LABS: Glucose,Whole Blood 171 mg/dL (75-99)
[2018-08-26] MEDS: CHOLECALCIFEROL 1,000 UNIT TAB PO SCH (07:45)
[2018-08-26] MEDS: LORATADINE 10 MG TAB PO SCH (07:45)
[2018-08-26] MEDS: MELOXICAM 7.5 MG TAB PO SCH (07:45)
[2018-08-26] MEDS: FUROSEMIDE 80 MG TAB PO SCH (07:45)
[2018-08-26] MEDS: BACLOFEN 10 MG TAB PO SCH ×2 (07:45→22:03)
[2018-08-26] MEDS: HEPARIN SODIUM,PORCINE 5,000 UNIT/ML 1 ML VIAL SQ SCH ×2 (07:46→22:04)
[2018-08-26] MEDS: OSELTAMIVIR 60 MG/10 ML ORAL SYRINGE PO SCH ×2 (07:46→22:03)
[2018-08-26] MEDS: DOCUSATE 100 MG CAP PO SCH ×2 (07:46→22:03)
[2018-08-26] MEDS: metFORMIN 500 MG TAB PO SCH ×2 (07:46→22:03)
[2018-08-26] MEDS: CITALOPRAM HYDROBROMIDE 10 MG TAB PO SCH (07:46)
[2018-08-26] MEDS: INSULIN ASPART (NovoLOG) 100 UNIT/ML VIAL SQ SCH ×4 (07:46→22:04)
[2018-08-26] MEDS: MONTELUKAST 10 MG TAB PO SCH (07:49)
[2018-08-26 08:24] LABS: Anisocytosis Slight; Basophils % (A) 0 %; Eosinophils % (A) 0 %; HCT 32.5 % (34.0-46.0); HGB 9.7 gm/dL (11.4-16.0); Hypochromasia Moderate; Lymphocytes # (A) 0.9 k/uL (1.0-4.8); Lymphocytes % (A) 14 %; MCH 26.4 pg (25.0-35.0); MCHC 29.8 g/dL (31.0-37.0); MCV 88.5 fL (80.0-100.0); Mean Platelet Volume 6.5; Monocytes # (A) 0.2 k/uL (0-1.0); Monocytes % (A) 3 %; Neutrophils % (A) 81 %; Platelet Count 288 k/uL (150-450); RBC 3.68 m/uL (3.80-5.40); RDW 16.6 % (11.5-15.5); WBC 6.1 k/uL (3.8-10.6)
[2018-08-26 08:34] LABS: Calcium 9.4 mg/dL (8.4-10.2); Potassium 4.8 mmol/L (3.5-5.1)
[2018-08-26 11:17] LABS: Glucose,Whole Blood 193 mg/dL (75-99)
[2018-08-26] MEDS: ASCORBIC ACID 500 MG TAB PO SCH (13:04)
[2018-08-26] MEDS: SENNOSIDES 8.6 MG TAB PO SCH ×2 (13:05→22:03)
[2018-08-26] MEDS: FERROUS SULFATE 325 MG TAB PO SCH (13:05)
--- NOTE | 2018-08-26 14:06 | P.PN ---
Subjective Progress Note Date: 08/26/18 Principal diagnosis: Community acquired pneumonia involving right middle lobe, reactive hilar adenopathy This is a 67-year-old female, with multiple medical problems including bilateral paraplegia since she had spinal surgery in 2006. Patient is also known to have type 2 diabetes, obesity, fibromyalgia, urinary stress incontinence, obstructive sleep apnea syndrome maintained on BiPAP, patient is usually followed by a visiting physician. Patient was last admitted to the hospital in March of 2018, and at that time she was seen for acute exacerbation of asthma and tracheo bronchitis. Her other medical problems included at the time urinary tract infection secondary to ESBL E. coli, and Pseudomonas. This time, the patient was admitted mostly with a few days' history of increased cough, congestion, chest tightness, wheezing, fevers, but no chills, poor appetite, and felt sort of run down. Upon admission, the patient had a chest CT of the chest, ruled out pulmonary embolism. There was no evidence of effusions, she was found to have some enlarged axillary and mediastinal right hilar lymph nodes, nonspecific, she was also found to have sclerotic changes on T12 vertebral body hence a PET scan was recommended. Pulmonary-nguyen she was found to have groundglass opacity in the right middle lobe suggestive of pneumonia. Patient has significant ALLERGIES to different antibiotics, hence I chose to start the patient on Levaquin. On 08/26/2018 patient seen in follow-up on medical surgical floor. She is resting in bed, she states she still short of breath, and coughing. Using her CPAP unit at night, during the day she is on 4 L of oxygen her pulse ox is 91%, she is afebrile, patient is mostly bedridden, there has been no fever or chills, today's labs have been reviewed, white blood cell count is 6.1, hemoglobin is 9.7, sodium is 143, potassium is 4.8, chloride is 101, CO2 is 34, B1 is 248, and creatinine is 1.08. And continues on empiric antibiotics in the form of Levaquin, she is on IV steroids, she is on Tamiflu for evidence of influenza A infection. Making slow improvement, will continue with current medical treatment. Objective - Vital Signs Vital signs: Vital Signs Temp 98.7 F 08/26/18 05:58 Pulse 96 08/26/18 11:16 Resp 20 08/26/18 05:58 BP 152/76 08/26/18 05:58 Pulse Ox 96 08/26/18 05:58 Intake & Output 08/25/18 08/26/18 08/26/18 18:59 06:59 18:59 Intake Total 480 Output Total 1999 1450 Balance -1999 Intake: Oral 480 Output: Urine 1999 1449 Uretheral (Stallings) 1450 Other: Voiding Method Indwelling Catheter Indwelling Catheter Indwelling Catheter - Exam GENERAL EXAM: Alert, obese 67-year-old obese white female, on 4 L of oxygen with pulse ox of 91% comfortable in no apparent distress. HEAD: Normocephalic/atraumatic. EYES: Normal reaction of pupils, equal size. Conjunctiva pink, sclera white. NOSE: Clear with pink turbinates. THROAT: No erythema or exudates. NECK: No masses, no JVD, no thyroid enlargement, no adenopathy. CHEST: No chest wall deformity. Symmetrical expansion. LUNGS: Equal air entry with diminished breath sounds with end expiratory wheezes CVS: Regular rate and rhythm, normal S1 and S2, no gallops, no murmurs, no rubs ABDOMEN: Soft, nontender. No hepatosplenomegaly, normal bowel sounds, no guarding or rigidity. EXTREMITIES: No clubbing, no edema, no cyanosis, 2+ pulses and upper and lower extremities. MUSCULOSKELETAL: Muscle strength and tone normal. SPINE: No scoliosis or deformity SKIN: No rashes CENTRAL NERVOUS SYSTEM: Alert and oriented -3. No focal deficits, tone is normal in all 4 extremities. PSYCHIATRIC: Alert and oriented -3. Appropriate affect. Intact judgment and insight. - Labs CBC & Chem 7: 08/26/18 07:52 08/26/18 07:52 Labs: Abnormal Lab Results - Last 24 Hours (Table) 08/25/18 08/25/18 08/26/18 Range/Units 17:12 20:12 07:13 RBC (3.80-5.40) m/uL Hgb (11.4-16.0) gm/dL Hct (34.0-46.0) % MCHC (31.0-37.0) g/dL RDW (11.5-15.5) % Lymphocytes # (1.0-4.8) k/uL Carbon Dioxide (22-30) mmol/L BUN (7-17) mg/dL Creatinine (0.52-1.04) mg/dL Glucose (74-99) mg/dL POC Glucose (mg/dL) 128 H 286 H 171 H (75-99) mg/dL 08/26/18 08/26/18 08/26/18 Range/Units 07:52 07:52 11:11 RBC 3.68 L (3.80-5.40) m/uL Hgb 9.7 L (11.4-16.0) gm/dL Hct 32.5 L (34.0-46.0) % MCHC 29.8 L (31.0-37.0) g/dL RDW 16.6 H (11.5-15.5) % Lymphocytes # 0.9 L (1.0-4.8) k/uL Carbon Dioxide 34 H (22-30) mmol/L BUN 48 H (7-17) mg/dL Creatinine 1.08 H (0.52-1.04) mg/dL Glucose 162 H (74-99) mg/dL POC Glucose (mg/dL) 193 H (75-99) mg/dL Assessment and Plan Plan: Assessment: 1 acute community-acquired pneumonia involving right middle lobe as noted on CT of the chest. 2 reactive hilar adenopathy, however the possibility of malignancy is not entirely ruled out, and the patient will need a repeat CT of the chest in the next 4 months. 3 acute exacerbation of moderate persistent asthma 4 type 2 diabetes, maintained on insulin. 5 morbid obesity with BMI more than 50 6 obstructive sleep apnea syndrome maintained on BiPAP 7 benign essential hypertension 8 fibromyalgia 9 chronic paraplegia since 2006, related to previous spinal injury 10 acute influenza A infection Plan: Continue with current antibiotic coverage, Tamiflu, Levaquin, current dose of IV steroids nebulized bronchodilators, Pulmicort and Perforomist, patient is still dyspneic, bronchospastic, still coughing, will continue with current medical treatment, continue to follow I performed a history & physical examination of the patient and discussed their management with my nurse practitioner, Ashley Ahumada. I reviewed the nurse practitioner's note and agree with the documented findings and plan of care. Lung sounds are positive for diffuse wheezes throughout the lung millan. The findings and the impression was discussed with the patient. I attest to the documentation by the nurse practitioner. Time with Patient: Less than 30
[2018-08-26 17:17] LABS: Glucose,Whole Blood 184 mg/dL (75-99)
--- NOTE | 2018-08-26 18:28 | PN ---
PROGRESS NOTE DATE OF SERVICE: 08/26/2018 This 67 -year-old woman was admitted with bronchial asthma, acute exacerbation, and acute influenza. The patient is on bronchodilators and steroids. Dr. Perkins is following the patient closely. The patient is feeling slightly better. The patient had back pain and previous kyphoplasty. The patient is not willing to undergo any CT scan of the dorsal spine currently. On exam, alert and oriented x3. The pulse is 105, blood pressure 151/72, respiration 18, temperature 98.1, pulse ox 91% on 4 L. HEENT: Conjunctivae normal. NECK: No jugular venous distention. CARDIOVASCULAR SYSTEM: S1, S2 muffled. RESPIRATORY SYSTEM: Breath sounds diminished at the bases. Bilateral scattered rhonchi and crackles. Expiratory wheezing also present. ABDOMEN: Soft, non-tender. NERVOUS SYSTEM: No focal deficit. LABS: WBC 6.1, hemoglobin 9.7, sodium 143, potassium 4.8. ASSESSMENT: 1. Acute exacerbation of intermittent bronchial asthma. 2. Acute influenza A. 3. Acute community-acquired pneumonia involving the right middle lobe, possibly gram- negative. 4. Diabetes mellitus, type 2, on insulin. 5. Chronic fibromyalgia. 6. Hypertension. 7. Hyperlipidemia. 8. Degenerative joint disease. 9. Morbid obesity. 10.Chronic bilateral paraplegia with spine injury. 11.Chronic urinary incontinence. 12.Obstructive sleep apnea. On BiPAP. 13.Normocytic anemia. 14.Eroded-appearing T12 vertebral body on chest CTA with previous history of kyphoplasty. The patient refused any further CT scan at this time. RECOMMENDATIONS AND DISCUSSION: I recommend to continue current medications, continue with the monitoring, symptomatic treatment. Continue with the bronchodilators. Taper the steroids. Follow closely with . Increase ambulation. Guarded prognosis. Further recommendations to follow. Repeat labs. MMODL / IJN: [id number] / MTDD
[2018-08-26 20:06] LABS: Glucose,Whole Blood 190 mg/dL (75-99)
[2018-08-26] MEDS: ASPIRIN 81 MG PO SCH (22:03)
[2018-08-26] MEDS: PANTOPRAZOLE 40 MG TABLET PO SCH (22:03)
[2018-08-26] MEDS: PRAVASTATIN SODIUM 20 MG TAB PO SCH (22:03)
[2018-08-26] MEDS: GABAPENTIN 300 MG CAP PO SCH (22:03)
[2018-08-26] MEDS: INSULIN DETEMIR (LEVEMIR) 100 UNIT/ML SYR SQ SCH (22:04)
[2018-08-26] MEDS: ACETAMINOPHEN TAB 325 MG TAB PO PRN (22:09)
[2018-08-27] MEDS: methylPREDNISolone SOD SUCCI 125 MG/2 ML VIAL IV SCH ×4 (00:03→17:42)
[2018-08-27] MEDS: IPRATROPIUM-ALBUTEROL 3 ML NEB INHALATION SCH ×6 (04:02→22:54)
[2018-08-27 07:12] LABS: Glucose,Whole Blood 205 mg/dL (75-99)
[2018-08-27] MEDS: BUDESONIDE 0.5 MG/2 ML NEBU INHALATION SCH (08:34)
[2018-08-27] MEDS: FORMOTEROL FUMARATE 20 MCG/2 ML NEBU INHALATION SCH ×2 (08:34→20:55)
[2018-08-27 08:37] LABS: Anisocytosis Slight; Basophils % (A) 0 %; Eosinophils % (A) 0 %; HCT 34.2 % (34.0-46.0); HGB 10.4 gm/dL (11.4-16.0); Hypochromasia Slight; Lymphocytes # (A) 1.1 k/uL (1.0-4.8); Lymphocytes % (A) 14 %; MCHC 30.3 g/dL (31.0-37.0); MCV 89.1 fL (80.0-100.0); Mean Platelet Volume 7.1; Monocytes # (A) 0.2 k/uL (0-1.0); Monocytes % (A) 3 %; Neutrophils # (A) 5.9 k/uL (1.3-7.7); Neutrophils % (A) 81 %; Platelet Count 323 k/uL (150-450); RBC 3.84 m/uL (3.80-5.40); RDW 16.6 % (11.5-15.5); WBC 7.3 k/uL (3.8-10.6)
[2018-08-27] MEDS: ACETAMINOPHEN TAB 325 MG TAB PO PRN (08:43)
[2018-08-27] MEDS: HEPARIN SODIUM,PORCINE 5,000 UNIT/ML 1 ML VIAL SQ SCH ×2 (08:44→20:43)
[2018-08-27] MEDS: INSULIN ASPART (NovoLOG) 100 UNIT/ML VIAL SQ SCH ×4 (08:45→20:44)
[2018-08-27] MEDS: BACLOFEN 10 MG TAB PO SCH ×2 (08:45→20:43)
[2018-08-27] MEDS: DOCUSATE 100 MG CAP PO SCH ×2 (08:46→20:43)
[2018-08-27] MEDS: CHOLECALCIFEROL 1,000 UNIT TAB PO SCH (08:46)
[2018-08-27] MEDS: CITALOPRAM HYDROBROMIDE 10 MG TAB PO SCH (08:46)
[2018-08-27] MEDS: SENNOSIDES 8.6 MG TAB PO SCH ×2 (08:47→20:43)
[2018-08-27] MEDS: POLYETHYLENE GLYCOL 3350 17 GM POWD.PACK PO SCH (08:47)
[2018-08-27] MEDS: FERROUS SULFATE 325 MG TAB PO SCH (08:47)
[2018-08-27] MEDS: MONTELUKAST 10 MG TAB PO SCH (08:47)
[2018-08-27] MEDS: ASCORBIC ACID 500 MG TAB PO SCH (08:47)
[2018-08-27] MEDS: LEVOFLOXACIN 750 MG TAB PO SCH (08:48)
[2018-08-27] MEDS: MELOXICAM 7.5 MG TAB PO SCH (08:48)
[2018-08-27] MEDS: OSELTAMIVIR 60 MG/10 ML ORAL SYRINGE PO SCH ×2 (08:48→20:55)
[2018-08-27] MEDS: FUROSEMIDE 80 MG TAB PO SCH (08:48)
[2018-08-27] MEDS: LORATADINE 10 MG TAB PO SCH (08:48)
[2018-08-27] MEDS: metFORMIN 500 MG TAB PO SCH ×2 (08:48→20:43)
[2018-08-27 08:52] LABS: Calcium 9.8 mg/dL (8.4-10.2); Potassium 4.4 mmol/L (3.5-5.1)
--- NOTE | 2018-08-27 10:27 | P.PN ---
Subjective Progress Note Date: 08/27/18 Principal diagnosis: Community-acquired pneumonia involving the right middle lobe, reactive hilar adenopathy This is a 67-year-old female, with multiple medical problems including bilateral paraplegia since she had spinal surgery in 2006. Patient is also known to have type 2 diabetes, obesity, fibromyalgia, urinary stress incontinence, obstructive sleep apnea syndrome maintained on BiPAP, patient is usually followed by a visiting physician. Patient was last admitted to the hospital in March of 2018, and at that time she was seen for acute exacerbation of asthma and tr acheobronchitis. Her other medical problems included at the time urinary tract infection secondary to ESBL E. coli, and Pseudomonas. This time, the patient was admitted mostly with a few days' history of increased cough, congestion, chest tightness, wheezing, fevers, but no chills, poor appetite, and felt sort of run down. Upon admission, the patient had a chest CT of the chest, ruled out pulmonary embolism. There was no evidence of effusions, she was found to have some enlarged axillary and mediastinal right hilar lymph nodes, nonspecific, she was also found to have sclerotic changes on T12 vertebral body hence a PET scan was recommended. Pulmonary-nguyen she was found to have groundglass opacity in the right middle lobe suggestive of pneumonia. Patient has significant ALLERGIES to different antibiotics, hence I chose to start the patient on Levaquin. On 08/26/2018 patient seen in follow-up on medical surgical floor. She is resting in bed, she states she still short of breath, and coughing. Using her CPAP unit at night, during the day she is on 4 L of oxygen her pulse ox is 91%, she is afebrile, patient is mostly bedridden, there has been no fever or chills, today's labs have been reviewed, white blood cell count is 6.1, hemoglobin is 9.7, sodium is 143, potassium is 4.8, chloride is 101, CO2 is 34, B1 is 248, and creatinine is 1.08. And continues on empiric antibiotics in the form of Levaquin, she is on IV steroids, she is on Tamiflu for evidence of influenza A infection. Making slow improvement, will continue with current medical treatment. The patient is seen today 08/27/2018 in follow-up on the regular medical floor. She is awake and alert in no acute distress. Still somewhat bronchospastic and wheezy. Not quite back to her baseline. She remains on her liters per minute per nasal cannula to maintain O2 saturations in the 90s. She has been afebrile. Hemodynamically stable. White count 7.3. Hemoglobin 10.4. Creatinine 1.16. She remains on DuoNeb inhalations, Pulmicort and Perforomist inhalations, IV Solu-Medrol, Singulair. Completing her course of Tamiflu. Oral Levaquin. Objective - Vital Signs Vital signs: Vital Signs Temp 97.2 F L 08/27/18 05:00 Pulse 86 08/27/18 08:59 Resp 20 08/27/18 05:00 BP 141/85 08/27/18 05:00 Pulse Ox 93 L 08/27/18 05:00 Intake & Output 08/26/18 08/27/18 08/27/18 18:59 06:59 18:59 Intake Total 1580 1070 Output Total 2550 1225 Balance -970 -155 Intake: Oral 1580 1070 Output: Urine 2550 1225 Uretheral (Stallings) 450 1225 Other: Voiding Method Indwelling Catheter Indwelling Catheter # Voids 1 - Exam GENERAL EXAM: Alert, obese 67-year-old obese female, on 4 L of oxygen with pulse ox of 93% comfortable in no apparent distress. HEAD: Normocephalic/atraumatic. EYES: Normal reaction of pupils, equal size. Conjunctiva pink, sclera white. NOSE: Clear with pink turbinates. THROAT: No erythema or exudates. NECK: No masses, no JVD, no thyroid enlargement, no adenopathy. CHEST: No chest wall deformity. Symmetrical expansion. LUNGS: Equal air entry with diminished breath sounds with end expiratory wheezes CVS: Regular rate and rhythm, normal S1 and S2, no gallops, no murmurs, no rubs ABDOMEN: Soft, nontender. No hepatosplenomegaly, normal bowel sounds, no guarding or rigidity. EXTREMITIES: No clubbing, no edema, no cyanosis, 2+ pulses and upper and lower extremities. MUSCULOSKELETAL: Muscle strength and tone normal. SPINE: No scoliosis or deformity SKIN: No rashes CENTRAL NERVOUS SYSTEM: No focal deficits, tone is normal in all 4 extremities. PSYCHIATRIC: Alert and oriented -3. Appropriate affect. Intact judgment and insight. - Labs CBC & Chem 7: 08/27/18 08:04 08/27/18 08:04 Labs: Abnormal Lab Results - Last 24 Hours (Table) 08/26/18 08/26/18 08/26/18 Range/Units 11:11 17:15 20:04 Hgb (11.4-16.0) gm/dL MCHC (31.0-37.0) g/dL RDW (11.5-15.5) % Carbon Dioxide (22-30) mmol/L BUN (7-17) mg/dL Creatinine (0.52-1.04) mg/dL Glucose (74-99) mg/dL POC Glucose (mg/dL) 193 H 184 H 190 H (75-99) mg/dL 08/27/18 08/27/18 08/27/18 Range/Units 07:08 08:04 08:04 Hgb 10.4 L (11.4-16.0) gm/dL MCHC 30.3 L (31.0-37.0) g/dL RDW 16.6 H (11.5-15.5) % Carbon Dioxide 33 H (22-30) mmol/L BUN 55 H (7-17) mg/dL Creatinine 1.16 H (0.52-1.04) mg/dL Glucose 170 H (74-99) mg/dL POC Glucose (mg/dL) 205 H (75-99) mg/dL Assessment and Plan Assessment: Assessment: 1 acute community-acquired pneumonia involving right middle lobe as noted on CT of the chest. 2 reactive hilar adenopathy, however the possibility of malignancy is not entirely ruled out, and the patient will need a repeat CT of the chest in the next 4 months. 3 acute exacerbation of moderate persistent asthma 4 type 2 diabetes, maintained on insulin. 5 morbid obesity with BMI more than 50 6 obstructive sleep apnea syndrome maintained on BiPAP 7 benign essential hypertension 8 fibromyalgia 9 chronic paraplegia since 2006, related to previous spinal injury 10 acute influenza A infection Plan: The patient was seen and evaluated by Dr. Perkins. She is improved from the pulmonary standpoint but not quite back to her baseline. We'll continue with her current treatment plan. We'll increase her activity as tolerated. We'll continue to follow. I, the cosigning physician, performed a history & physical examination of the patient. Lungs sounds with bilateral end expiratory wheeze, diminished Maintaining good O2 saturations in the 90s on 4 L/m per nasal cannula. I discussed the assessment and plan of care with my nurse practitioner, Karo Villalpando. I attest to the above note as dictated by her.
[2018-08-27 11:20] LABS: Glucose,Whole Blood 216 mg/dL (75-99)
[2018-08-27 16:58] LABS: Glucose,Whole Blood 162 mg/dL (75-99)
--- NOTE | 2018-08-27 19:39 | PN ---
PROGRESS NOTE DATE OF SERVICE: This 67-year-old woman who was admitted with bronchial asthma, acute exacerbation, has influenza A, being closely monitored. Patient is on IV steroids, antibiotics and antivirals. Dr. Perkins is following the patient closely. No chest pain. No palpitations. No fever. On exam, alert and oriented x3. The pulse is 91, blood pressure 148/69, respiration 20, temperature 97.4, pulse ox 92% on room air. HEENT: Conjunctivae normal. CARDIOVASCULAR SYSTEM: S1, S2 muffled. RESPIRATORY SYSTEM: Breath sounds diminished at the bases. Bilateral scattered rhonchi and crackles. ABDOMEN: Soft, non-tender. LEGS: No edema. No swelling. NERVOUS SYSTEM: No focal deficit. LABS: WBC 7.3, hemoglobin 10.4, sodium 142, potassium 4.4. Creatinine 1.16. ASSESSMENT: 1. Acute exacerbation of intermittent bronchial asthma. 2. Acute influenza A. 3. Acute community-acquired pneumonia involving the right middle lobe, possibly gram- negative. 4. Diabetes mellitus, type 2, on insulin. 5. Chronic fibromyalgia. 6. Hypertension. 7. Hyperlipidemia. 8. History of degenerative joint disease. 9. Morbid obesity. 10.Chronic bilateral paraplegia with spinal injury. 11.Chronic urine incontinence. 12.Obstructive sleep apnea. On BiPAP. 13.Normocytic anemia. 14.Eroded-appearing T12 vertebral body on chest CT with a previous history of kyphoplasty. Patient refused any further CT scan. RECOMMENDATIONS AND DISCUSSION: I recommend to continue current medications, continue with the monitoring, symptomatic treatment. Continue with the IV antibiotics. Continue with the antivirals. Continue to monitor creatinine closely. Continue with IV steroids. Prognosis guarded because of multiple complex medical issues. Further recommendations to follow. MMODL / IJN: [id number] /
[2018-08-27 20:06] LABS: Glucose,Whole Blood 241 mg/dL (75-99)
[2018-08-27] MEDS: GABAPENTIN 300 MG CAP PO SCH (20:43)
[2018-08-27] MEDS: PRAVASTATIN SODIUM 20 MG TAB PO SCH (20:43)
[2018-08-27] MEDS: PANTOPRAZOLE 40 MG TABLET PO SCH (20:43)
[2018-08-27] MEDS: INSULIN DETEMIR (LEVEMIR) 100 UNIT/ML SYR SQ SCH (20:43)
[2018-08-27] MEDS: ASPIRIN 81 MG PO SCH (20:43)
[2018-08-27] MEDS: BUDESONIDE 1 MG/2 ML NEBU INHALATION SCH (20:55)
[2018-08-27 21:16] LABS: Hemoglobin A1C 6.7 % (4.0-6.0)
[2018-08-28] MEDS: methylPREDNISolone SOD SUCCI 125 MG/2 ML VIAL IV SCH ×5 (05:37→23:43)
[2018-08-28] MEDS: ACETAMINOPHEN TAB 325 MG TAB PO PRN ×2 (05:38→16:42)
[2018-08-28 07:05] LABS: Glucose,Whole Blood 188 mg/dL (75-99)
[2018-08-28] MEDS: FORMOTEROL FUMARATE 20 MCG/2 ML NEBU INHALATION SCH ×2 (08:34→19:30)
[2018-08-28] MEDS: BUDESONIDE 1 MG/2 ML NEBU INHALATION SCH ×2 (08:34→19:30)
[2018-08-28] MEDS: IPRATROPIUM-ALBUTEROL 3 ML NEB INHALATION SCH ×6 (08:35→23:26)
[2018-08-28 08:45] LABS: Anisocytosis Slight; Basophils % (A) 0 %; Eosinophils % (A) 0 %; HGB 10.4 gm/dL (11.4-16.0); Hypochromasia Slight; Lymphocytes % (A) 13 %; MCH 26.9 pg (25.0-35.0); MCHC 30.5 g/dL (31.0-37.0); MCV 88.1 fL (80.0-100.0); Monocytes # (A) 0.2 k/uL (0-1.0); Monocytes % (A) 3 %; Neutrophils # (A) 6.4 k/uL (1.3-7.7); Neutrophils % (A) 83 %; Platelet Count 334 k/uL (150-450); RBC 3.86 m/uL (3.80-5.40); RDW 16.6 % (11.5-15.5); WBC 7.7 k/uL (3.8-10.6)
[2018-08-28] MEDS: metFORMIN 500 MG TAB PO SCH ×2 (08:51→21:03)
[2018-08-28] MEDS: DOCUSATE 100 MG CAP PO SCH ×2 (08:51→21:04)
[2018-08-28] MEDS: FERROUS SULFATE 325 MG TAB PO SCH (08:52)
[2018-08-28] MEDS: ASCORBIC ACID 500 MG TAB PO SCH (08:52)
[2018-08-28] MEDS: MONTELUKAST 10 MG TAB PO SCH (08:52)
[2018-08-28] MEDS: SENNOSIDES 8.6 MG TAB PO SCH ×2 (08:52→21:03)
[2018-08-28] MEDS: OSELTAMIVIR 60 MG/10 ML ORAL SYRINGE PO SCH ×2 (08:52→21:04)
[2018-08-28] MEDS: CITALOPRAM HYDROBROMIDE 10 MG TAB PO SCH (08:52)
[2018-08-28] MEDS: HEPARIN SODIUM,PORCINE 5,000 UNIT/ML 1 ML VIAL SQ SCH ×2 (08:53→21:04)
[2018-08-28] MEDS: FUROSEMIDE 80 MG TAB PO SCH (08:53)
[2018-08-28] MEDS: LORATADINE 10 MG TAB PO SCH (08:54)
[2018-08-28] MEDS: MELOXICAM 7.5 MG TAB PO SCH (08:54)
[2018-08-28] MEDS: BACLOFEN 10 MG TAB PO SCH ×2 (08:54→21:03)
[2018-08-28] MEDS: CHOLECALCIFEROL 1,000 UNIT TAB PO SCH (08:54)
[2018-08-28] MEDS: INSULIN ASPART (NovoLOG) 100 UNIT/ML VIAL SQ SCH ×4 (08:55→21:04)
[2018-08-28 08:57] LABS: Calcium 9.6 mg/dL (8.4-10.2); Potassium 4.7 mmol/L (3.5-5.1)
[2018-08-28 12:27] LABS: Glucose,Whole Blood 179 mg/dL (75-99)
--- NOTE | 2018-08-28 13:27 | P.PN ---
Subjective Progress Note Date: 08/28/18 Principal diagnosis: Community-acquired pneumonia involving the right middle lobe, reactive hilar adenopathy This is a 67-year-old female, with multiple medical problems including bilateral paraplegia since she had spinal surgery in 2006. Patient is also known to have type 2 diabetes, obesity, fibromyalgia, urinary stress incontinence, obstructive sleep apnea syndrome maintained on BiPAP, patient is usually followed by a visiting physician. Patient was last admitted to the hospital in March of 2018, and at that time she was seen for acute exacerbation of asthma and tr acheobronchitis. Her other medical problems included at the time urinary tract infection secondary to ESBL E. coli, and Pseudomonas. This time, the patient was admitted mostly with a few days' history of increased cough, congestion, chest tightness, wheezing, fevers, but no chills, poor appetite, and felt sort of run down. Upon admission, the patient had a chest CT of the chest, ruled out pulmonary embolism. There was no evidence of effusions, she was found to have some enlarged axillary and mediastinal right hilar lymph nodes, nonspecific, she was also found to have sclerotic changes on T12 vertebral body hence a PET scan was recommended. Pulmonary-nguyen she was found to have groundglass opacity in the right middle lobe suggestive of pneumonia. Patient has significant ALLERGIES to different antibiotics, hence I chose to start the patient on Levaquin. On 08/26/2018 patient seen in follow-up on medical surgical floor. She is resting in bed, she states she still short of breath, and coughing. Using her CPAP unit at night, during the day she is on 4 L of oxygen her pulse ox is 91%, she is afebrile, patient is mostly bedridden, there has been no fever or chills, today's labs have been reviewed, white blood cell count is 6.1, hemoglobin is 9.7, sodium is 143, potassium is 4.8, chloride is 101, CO2 is 34, B1 is 248, and creatinine is 1.08. And continues on empiric antibiotics in the form of Levaquin, she is on IV steroids, she is on Tamiflu for evidence of influenza A infection. Making slow improvement, will continue with current medical treatment. The patient is seen today 08/27/2018 in follow-up on the regular medical floor. She is awake and alert in no acute distress. Still somewhat bronchospastic and wheezy. Not quite back to her baseline. She remains on her liters per minute per nasal cannula to maintain O2 saturations in the 90s. She has been afebrile. Hemodynamically stable. White count 7.3. Hemoglobin 10.4. Creatinine 1.16. She remains on DuoNeb inhalations, Pulmicort and Perforomist inhalations, IV Solu-Medrol, Singulair. Completing her course of Tamiflu. Oral Levaquin. The patient is seen today 08/28/2018 in follow-up on the regular medical floor. She is doing a bit better today as compared to yesterday. Still with a tight nonproductive cough. 18 in O2 saturations in the 90s on 4 L/m per nasal cannula. She's been afebrile. White count 7.7. Hemoglobin 10.4. Creatinine 1.22. She remains on Tamiflu, Singulair, IV Solu-Medrol, bronchodilators. Objective - Vital Signs Vital signs: Vital Signs Temp 97 F L 08/28/18 05:00 Pulse 92 08/28/18 12:08 Resp 18 08/28/18 05:00 BP 162/76 08/28/18 05:00 Pulse Ox 96 08/28/18 05:00 Intake & Output 08/27/18 08/28/18 08/28/18 18:59 06:59 18:59 Intake Total 220 Output Total 1150 750 Balance -1150 -530 Intake: Oral 220 Output: Urine 1150 750 Uretheral (Stallings) 750 Other: Voiding Method Indwelling Catheter Indwelling Catheter # Bowel Movements 1 - Exam GENERAL EXAM: Alert, obese 67-year-old obese female, on 4 L of oxygen in no apparent distress. HEAD: Normocephalic/atraumatic. EYES: Normal reaction of pupils, equal size. Conjunctiva pink, sclera white. NOSE: Clear with pink turbinates. THROAT: No erythema or exudates. NECK: No masses, no JVD, no thyroid enlargement, no adenopathy. CHEST: No chest wall deformity. Symmetrical expansion. LUNGS: Equal air entry with diminished breath sounds with end expiratory wheezes CVS: Regular rate and rhythm, normal S1 and S2, no gallops, no murmurs, no rubs ABDOMEN: Soft, nontender. No hepatosplenomegaly, normal bowel sounds, no guarding or rigidity. EXTREMITIES: No clubbing, no edema, no cyanosis, 2+ pulses and upper and lower extremities. MUSCULOSKELETAL: Muscle strength and tone normal. SPINE: No scoliosis or deformity SKIN: No rashes CENTRAL NERVOUS SYSTEM: No focal deficits, tone is normal in all 4 extremities. PSYCHIATRIC: Alert and oriented -3. Appropriate affect. Intact judgment and insight. - Labs CBC & Chem 7: 08/28/18 07:57 08/28/18 07:57 Labs: Abnormal Lab Results - Last 24 Hours (Table) 08/27/18 08/27/18 08/27/18 Range/Units 13:12 16:50 20:05 Hgb (11.4-16.0) gm/dL MCHC (31.0-37.0) g/dL RDW (11.5-15.5) % Carbon Dioxide (22-30) mmol/L BUN (7-17) mg/dL Creatinine (0.52-1.04) mg/dL Glucose (74-99) mg/dL POC Glucose (mg/dL) 162 H 241 H (75-99) mg/dL Hemoglobin A1c 6.7 H (4.0-6.0) % 08/28/18 08/28/18 08/28/18 Range/Units 07:03 07:57 07:57 Hgb 10.4 L (11.4-16.0) gm/dL MCHC 30.5 L (31.0-37.0) g/dL RDW 16.6 H (11.5-15.5) % Carbon Dioxide 37 H (22-30) mmol/L BUN 61 H (7-17) mg/dL Creatinine 1.22 H (0.52-1.04) mg/dL Glucose 172 H (74-99) mg/dL POC Glucose (mg/dL) 188 H (75-99) mg/dL Hemoglobin A1c (4.0-6.0) % 08/28/18 Range/Units 12:26 Hgb (11.4-16.0) gm/dL MCHC (31.0-37.0) g/dL RDW (11.5-15.5) % Carbon Dioxide (22-30) mmol/L BUN (7-17) mg/dL Creatinine (0.52-1.04) mg/dL Glucose (74-99) mg/dL POC Glucose (mg/dL) 179 H (75-99) mg/dL Hemoglobin A1c (4.0-6.0) % Assessment and Plan Assessment: Assessment: 1 acute community-acquired pneumonia involving right middle lobe as noted on CT of the chest. 2 reactive hilar adenopathy, however the possibility of malignancy is not entirely ruled out, and the patient will need a repeat CT of the chest in the next 4 months. 3 acute exacerbation of moderate persistent asthma 4 type 2 diabetes, maintained on insulin. 5 morbid obesity with BMI more than 50 6 obstructive sleep apnea syndrome maintained on BiPAP 7 benign essential hypertension 8 fibromyalgia 9 chronic paraplegia since 2006, related to previous spinal injury 10 acute influenza A infection Plan: The patient was seen and evaluated by Dr. Perkins. She is better today as compared to yesterday. She's been slow to progress. We'll continue with her current treatment plan. We'll continue to follow. I, the cosigning physician, performed a history & physical examination of the patient. Lungs sounds with bilateral end expiratory wheeze, diminished Maintaining good O2 saturations in the 90s on 4 L/m per nasal cannula. I discussed the assessment and plan of care with my nurse practitioner, Karo Villalpando. I attest to the above note as dictated by her.
--- NOTE | 2018-08-28 15:06 | XR ---
EXAMINATION TYPE: XR chest 2V DATE OF EXAM: 08/28/2018 COMPARISON: Chest x-ray and CT chest from 6 days ago. HISTORY: Lower lobe pneumonia. TECHNIQUE: Frontal and lateral views of the chest are obtained. FINDINGS: Exam noted suboptimal due to patient's large body habitus. Lateral view is essentially nond iagnostic. There is persistent horizontal right basilar opacity. There is stable left internal jugula r central venous catheter. There is no new suspicious focal air space opacity, pleural effusion, or p neumothorax seen. The cardiac silhouette size remains enlarged. Anterior fusion plate lower cervical spine is partially imaged. IMPRESSION: Suboptimal study, cardiomegaly with persistent right basilar atelectasis and/or infiltra te. No new infiltrate is seen.
[2018-08-28 17:17] LABS: Glucose,Whole Blood 202 mg/dL (75-99)
[2018-08-28 20:11] LABS: Glucose,Whole Blood 317 mg/dL (75-99)
[2018-08-28] MEDS: GABAPENTIN 300 MG CAP PO SCH (21:04)
[2018-08-28] MEDS: INSULIN DETEMIR (LEVEMIR) 100 UNIT/ML SYR SQ SCH (21:04)
[2018-08-28] MEDS: PANTOPRAZOLE 40 MG TABLET PO SCH (21:04)
[2018-08-28] MEDS: ASPIRIN 81 MG PO SCH (21:04)
[2018-08-28] MEDS: PRAVASTATIN SODIUM 20 MG TAB PO SCH (21:53)
--- NOTE | 2018-08-28 23:26 | PN ---
PROGRESS NOTE DATE OF SERVICE: 08/28/2018 This 67-year-old woman was admitted after acute exacerbation and bronchial asthma, as well as acute influenza is still having significant wheezing. No chest pain. No palpitations. No fever. Dr. Perkins is following the patient closely. PHYSICAL EXAM: Alert and oriented times three. Pulse is 99. Blood pressure 122/80. Respirations 18, temperature 98 degrees, pulse ox 94% on 4 L. HEENT is conjunctivae normal. Oral mucosa moist. Neck is no jugular venous distention. No carotid bruit. No lymph node enlargement. CARDIOVASCULAR SYSTEM: S1, S2 muffled. RESPIRATORY SYSTEM: Breath sounds diminished at the bases. Bilateral scattered rhonchi and crackles. Expiratory wheezing. ABDOMEN: Soft, nontender. Legs are no edema, no swelling. CENTRAL NERVOUS SYSTEM: No focal deficits. LABS: WBC 7.2, hemoglobin 10.6, sodium 140, potassium 4.7. ASSESSMENT: 1. Acute exacerbation intermittent bronchial asthma. 2. Acute influenza A. 3. Acute community-acquired pneumonia involving the right middle lobe possibly gram- negative. 4. Diabetes mellitus type 2 on insulin. 5. Chronic fibromyalgia. 6. Hypertension. 7. Hyperlipidemia. 8. History of degenerative joint disease. 9. Morbid obesity. 10.Chronic bilateral paraplegia from spinal injury. 11.Chronic urinary incontinence. 12.Obstructive sleep apnea on BiPAP. 13.Normocytic anemia. 14.T12 vertebral body and with previous history of kyphoplasty. The patient refused any further CT scans. RECOMMENDATIONS AND DISCUSSION: Recommend to continue current medications, management and symptomatic treatment. Continue the steroids. Continue with bronchodilators. Continue with empiric antibiotics. Closely follow with Dr. Perkins. Guarded prognosis. Further recommendations to follow. MMODL / IJN: [id number] / [facility]
[2018-08-28] MEDS ORDERED: methylPREDNISolone SOD SUCCI 125 MG/2 ML VIAL ONE (23:48)
[2018-08-29] MEDS: IPRATROPIUM-ALBUTEROL 3 ML NEB INHALATION SCH ×6 (03:22→23:08)
[2018-08-29] MEDS: methylPREDNISolone SOD SUCCI 125 MG/2 ML VIAL IV SCH (06:08)
[2018-08-29 06:49] LABS: Glucose,Whole Blood 207 mg/dL (75-99)
[2018-08-29] MEDS: FORMOTEROL FUMARATE 20 MCG/2 ML NEBU INHALATION SCH ×2 (07:28→19:21)
[2018-08-29] MEDS: BUDESONIDE 1 MG/2 ML NEBU INHALATION SCH ×2 (07:28→19:21)
[2018-08-29] MEDS: CITALOPRAM HYDROBROMIDE 10 MG TAB PO SCH (08:04)
[2018-08-29] MEDS: LORATADINE 10 MG TAB PO SCH (08:04)
[2018-08-29] MEDS: SENNOSIDES 8.6 MG TAB PO SCH ×2 (08:04→20:29)
[2018-08-29] MEDS: MONTELUKAST 10 MG TAB PO SCH (08:05)
[2018-08-29] MEDS: MELOXICAM 7.5 MG TAB PO SCH (08:05)
[2018-08-29] MEDS: metFORMIN 500 MG TAB PO SCH ×2 (08:05→20:32)
[2018-08-29] MEDS: BACLOFEN 10 MG TAB PO SCH ×2 (08:06→20:31)
[2018-08-29] MEDS: CHOLECALCIFEROL 1,000 UNIT TAB PO SCH (08:06)
[2018-08-29] MEDS: FUROSEMIDE 80 MG TAB PO SCH (08:06)
[2018-08-29] MEDS: DOCUSATE 100 MG CAP PO SCH ×2 (08:06→20:31)
[2018-08-29] MEDS: INSULIN ASPART (NovoLOG) 100 UNIT/ML VIAL SQ SCH ×4 (08:07→20:32)
[2018-08-29] MEDS: LEVOFLOXACIN 750 MG TAB PO SCH (08:07)
[2018-08-29] MEDS: HEPARIN SODIUM,PORCINE 5,000 UNIT/ML 1 ML VIAL SQ SCH ×2 (08:08→20:32)
[2018-08-29 08:32] LABS: Anisocytosis Slight; Basophils % (A) 0 %; Eosinophils % (A) 1 %; HCT 35.3 % (34.0-46.0); HGB 10.6 gm/dL (11.4-16.0); Hypochromasia Slight; Lymphocytes # (A) 0.8 k/uL (1.0-4.8); Lymphocytes % (A) 11 %; MCH 26.3 pg (25.0-35.0); MCHC 29.9 g/dL (31.0-37.0); MCV 87.9 fL (80.0-100.0); Mean Platelet Volume 7.1; Monocytes # (A) 0.2 k/uL (0-1.0); Monocytes % (A) 3 %; Neutrophils # (A) 6.4 k/uL (1.3-7.7); Neutrophils % (A) 85 %; Platelet Count 321 k/uL (150-450); RBC 4.01 m/uL (3.80-5.40); RDW 16.6 % (11.5-15.5); WBC 7.5 k/uL (3.8-10.6)
[2018-08-29 08:40] LABS: Calcium 9.6 mg/dL (8.4-10.2); Potassium 4.8 mmol/L (3.5-5.1)
[2018-08-29 09:32] VITALS: BMI 59.3
[2018-08-29 11:49] LABS: Glucose,Whole Blood 177 mg/dL (75-99)
[2018-08-29] MEDS: FERROUS SULFATE 325 MG TAB PO SCH (12:14)
[2018-08-29] MEDS: ASCORBIC ACID 500 MG TAB PO SCH (12:14)
--- NOTE | 2018-08-29 12:25 | P.PN ---
Subjective Progress Note Date: 08/29/18 Principal diagnosis: Community-acquired pneumonia involving the right middle lobe, reactive hilar adenopathy This is a 67-year-old female, with multiple medical problems including bilateral paraplegia since she had spinal surgery in 2006. Patient is also known to have type 2 diabetes, obesity, fibromyalgia, urinary stress incontinence, obstructive sleep apnea syndrome maintained on BiPAP, patient is usually followed by a visiting physician. Patient was last admitted to the hospital in March of 2018, and at that time she was seen for acute exacerbation of asthma and tr acheobronchitis. Her other medical problems included at the time urinary tract infection secondary to ESBL E. coli, and Pseudomonas. This time, the patient was admitted mostly with a few days' history of increased cough, congestion, chest tightness, wheezing, fevers, but no chills, poor appetite, and felt sort of run down. Upon admission, the patient had a chest CT of the chest, ruled out pulmonary embolism. There was no evidence of effusions, she was found to have some enlarged axillary and mediastinal right hilar lymph nodes, nonspecific, she was also found to have sclerotic changes on T12 vertebral body hence a PET scan was recommended. Pulmonary-nguyen she was found to have groundglass opacity in the right middle lobe suggestive of pneumonia. Patient has significant ALLERGIES to different antibiotics, hence I chose to start the patient on Levaquin. On 08/26/2018 patient seen in follow-up on medical surgical floor. She is resting in bed, she states she still short of breath, and coughing. Using her CPAP unit at night, during the day she is on 4 L of oxygen her pulse ox is 91%, she is afebrile, patient is mostly bedridden, there has been no fever or chills, today's labs have been reviewed, white blood cell count is 6.1, hemoglobin is 9.7, sodium is 143, potassium is 4.8, chloride is 101, CO2 is 34, B1 is 248, and creatinine is 1.08. And continues on empiric antibiotics in the form of Levaquin, she is on IV steroids, she is on Tamiflu for evidence of influenza A infection. Making slow improvement, will continue with current medical treatment. The patient is seen today 08/27/2018 in follow-up on the regular medical floor. She is awake and alert in no acute distress. Still somewhat bronchospastic and wheezy. Not quite back to her baseline. She remains on her liters per minute per nasal cannula to maintain O2 saturations in the 90s. She has been afebrile. Hemodynamically stable. White count 7.3. Hemoglobin 10.4. Creatinine 1.16. She remains on DuoNeb inhalations, Pulmicort and Perforomist inhalations, IV Solu-Medrol, Singulair. Completing her course of Tamiflu. Oral Levaquin. The patient is seen today 08/28/2018 in follow-up on the regular medical floor. She is doing a bit better today as compared to yesterday. Still with a tight nonproductive cough. 18 in O2 saturations in the 90s on 4 L/m per nasal cannula. She's been afebrile. White count 7.7. Hemoglobin 10.4. Creatinine 1.22. She remains on Tamiflu, Singulair, IV Solu-Medrol, bronchodilators. The patient is seen today 08/29/2018 in follow-up on the regular medical floor. She is currently resting comfortably in bed. Awake and alert in no acute distress. She is breathing about easier today as compared to yesterday. Still with some few scattered rhonchi and faint wheezing but improved. She is maintaining good O2 saturations in the upper 90s on 4 L/m per nasal cannula. She's afebrile. Hemodynamically stable. White count 7.5. Hemoglobin 10.6. Creatinine 1.00. Objective - Vital Signs Vital signs: Vital Signs Temp 98.9 F 08/29/18 12:09 Pulse 95 08/29/18 12:09 Resp 19 08/29/18 12:09 BP 133/74 08/29/18 12:09 Pulse Ox 97 08/29/18 12:09 Intake & Output 08/28/18 08/29/18 08/29/18 18:59 06:59 18:59 Intake Total 360 Output Total 1600 1000 200 Balance -1600 -640 -200 Weight 142.428 kg Intake: Oral 360 Output: Urine 1600 1000 200 Uretheral (Stallings) 1600 1000 200 Other: Voiding Method Indwelling Catheter Indwelling Catheter Indwelling Catheter # Bowel Movements 0 - Exam GENERAL EXAM: Alert, 67-year-old obese female, on 4 L of oxygen in no apparent distress. HEAD: Normocephalic/atraumatic. EYES: Normal reaction of pupils, equal size. Conjunctiva pink, sclera white. NOSE: Clear with pink turbinates. THROAT: No erythema or exudates. NECK: No masses, no JVD, no thyroid enlargement, no adenopathy. CHEST: No chest wall deformity. Symmetrical expansion. LUNGS: Equal air entry with diminished breath sounds with end expiratory wheezes CVS: Regular rate and rhythm, normal S1 and S2, no gallops, no murmurs, no rubs ABDOMEN: Soft, nontender. No hepatosplenomegaly, normal bowel sounds, no guarding or rigidity. EXTREMITIES: No clubbing, no edema, no cyanosis, 2+ pulses and upper and lower extremities. MUSCULOSKELETAL: Muscle strength and tone normal. SPINE: No scoliosis or deformity SKIN: No rashes CENTRAL NERVOUS SYSTEM: No focal deficits, tone is normal in all 4 extremities. PSYCHIATRIC: Alert and oriented -3. Appropriate affect. Intact judgment and insight. - Labs CBC & Chem 7: 08/29/18 07:43 08/29/18 07:43 Labs: Abnormal Lab Results - Last 24 Hours (Table) 08/28/18 08/28/18 08/28/18 Range/Units 12:26 17:17 20:09 Hgb (11.4-16.0) gm/dL MCHC (31.0-37.0) g/dL RDW (11.5-15.5) % Lymphocytes # (1.0-4.8) k/uL Carbon Dioxide (22-30) mmol/L BUN (7-17) mg/dL Glucose (74-99) mg/dL POC Glucose (mg/dL) 179 H 202 H 317 H (75-99) mg/dL 08/29/18 08/29/18 08/29/18 Range/Units 06:48 07:43 07:43 Hgb 10.6 L (11.4-16.0) gm/dL MCHC 29.9 L (31.0-37.0) g/dL RDW 16.6 H (11.5-15.5) % Lymphocytes # 0.8 L (1.0-4.8) k/uL Carbon Dioxide 31 H (22-30) mmol/L BUN 66 H (7-17) mg/dL Glucose 185 H (74-99) mg/dL POC Glucose (mg/dL) 207 H (75-99) mg/dL 08/29/18 Range/Units 11:48 Hgb (11.4-16.0) gm/dL MCHC (31.0-37.0) g/dL RDW (11.5-15.5) % Lymphocytes # (1.0-4.8) k/uL Carbon Dioxide (22-30) mmol/L BUN (7-17) mg/dL Glucose (74-99) mg/dL POC Glucose (mg/dL) 177 H (75-99) mg/dL Assessment and Plan Assessment: Assessment: 1 acute community-acquired pneumonia involving right middle lobe as noted on CT of the chest. Improving. 2 reactive hilar adenopathy, however the possibility of malignancy is not entirely ruled out, and the patient will need a repeat CT of the chest in the next 4 months. 3 acute exacerbation of moderate persistent asthma 4 type 2 diabetes, maintained on insulin. 5 morbid obesity with BMI more than 50 6 obstructive sleep apnea syndrome maintained on BiPAP 7 benign essential hypertension 8 fibromyalgia 9 chronic paraplegia since 2006, related to previous spinal injury 10 acute influenza A infection Plan: The patient was seen and evaluated by Dr. Perkins. She is better today as compared to yesterday. Probable discharge in the a.m. We'll continue with her current treatment plan. We'll continue to follow. I, the cosigning physician, performed a history & physical examination of the patient. Lungs sounds with bilateral end expiratory wheeze, diminished Maintaining good O2 saturations in the 90s on 4 L/m per nasal cannula. I discussed the assessment and plan of care with my nurse practitioner, Karo Villalpando. I attest to the above note as dictated by her.
[2018-08-29 17:02] LABS: Glucose,Whole Blood 113 mg/dL (75-99)
[2018-08-29] MEDS: methylPREDNISolone SOD SUCCI 40 MG/ML 1 ML VIAL IV SCH ×2 (18:17→23:51)
[2018-08-29 20:11] LABS: Glucose,Whole Blood 172 mg/dL (75-99)
[2018-08-29] MEDS: ASPIRIN 81 MG PO SCH (20:29)
[2018-08-29] MEDS: PRAVASTATIN SODIUM 20 MG TAB PO SCH (20:31)
[2018-08-29] MEDS: INSULIN DETEMIR (LEVEMIR) 100 UNIT/ML SYR SQ SCH (20:32)
[2018-08-29] MEDS: GABAPENTIN 300 MG CAP PO SCH (20:32)
[2018-08-29] MEDS: PANTOPRAZOLE 40 MG TABLET PO SCH (20:33)
--- NOTE | 2018-08-29 22:34 | PN ---
PROGRESS NOTE DATE OF SERVICE: 08/29/2018 PRESENTING COMPLAINT: Short of breath. INTERVAL HISTORY: Patient was admitted with acute asthma exacerbation along with acute influenza A. Patient is overall doing better. Appetite is picking up. Less wheezing. No other new issues. REVIEW OF SYSTEMS: Done for constitutional, cardiovascular, GI, pulmonary; relevant findings as above. CURRENT MEDICATIONS: Reviewed. They include DuoNeb, IV Solu-Medrol 60 q.6. PHYSICAL EXAMINATION: Temperature 98.9, pulse 95, respiration 19, blood pressure 132/74, pulse ox 97% on 4 L. GENERAL APPEARANCE: Sitting on bed, awake. Slightly anxious. EYES: Pupils equal. Conjunctivae normal. NECK: JVD unable to assess. Mass not palpable. RESPIRATORY: Effort increased. LUNGS: Improved air entry. Minimal wheezing. CARDIOVASCULAR: First and second sounds normal. No edema. ABDOMEN: Soft, non-tender. Liver and spleen not palpable. PSYCHIATRY: Alert and oriented x3. Mood and affect slightly anxious-appearing. INVESTIGATIONS: White count 7.5, hemoglobin 10.6, potassium 4.8, BUN 66, creatinine 1. Glucose 177, 113. ASSESSMENT: 1. Acute exacerbation of moderate persistent asthma secondary to influenza A pneumonitis with clinical improvement. 2. Chronic hypoxic respiratory failure. 3. Diabetes mellitus, type 2, chronically on insulin. 4. Chronic fibromyalgia. 5. Hyperlipidemia. 6. Essential hypertension. 7. Primary osteoarthritis. 8. Morbid obesity with body mass index more than 30. 9. Chronic bilateral paraplegia from spinal injury in 2006. 10.Chronic urinary stress incontinence. 11.Obstructive sleep apnea. Uses BiPAP. 12.Normocytic anemia, cause undetermined. PLAN: Care was discussed with the patient. It was also discussed with Dr. Perkins. Will cut back the Solu-Medrol to 40 q.8, hoping patient will be switched to oral prednisone by tomorrow and hopefully can be discharged. MMODL / IJN: [id number] /
[2018-08-29] MEDS: ACETAMINOPHEN TAB 325 MG TAB PO PRN (23:47)
[2018-08-30] MEDS: IPRATROPIUM-ALBUTEROL 3 ML NEB INHALATION SCH ×4 (02:59→15:19)
[2018-08-30 07:15] LABS: Glucose,Whole Blood 147 mg/dL (75-99)
[2018-08-30] MEDS: FORMOTEROL FUMARATE 20 MCG/2 ML NEBU INHALATION SCH (07:20)
[2018-08-30] MEDS: BUDESONIDE 1 MG/2 ML NEBU INHALATION SCH (07:20)
[2018-08-30 08:21] LABS: Anisocytosis Slight; Basophils % (A) 0 %; Calcium 9.4 mg/dL (8.4-10.2); Eosinophils % (A) 0 %; HCT 34.4 % (34.0-46.0); HGB 10.4 gm/dL (11.4-16.0); Hypochromasia Slight; Lymphocytes # (A) 1.9 k/uL (1.0-4.8); Lymphocytes % (A) 17 %; MCH 26.7 pg (25.0-35.0); MCHC 30.3 g/dL (31.0-37.0); MCV 87.9 fL (80.0-100.0); Mean Platelet Volume 7.7; Monocytes # (A) 0.4 k/uL (0-1.0); Monocytes % (A) 4 %; Neutrophils # (A) 8.7 k/uL (1.3-7.7); Neutrophils % (A) 78 %; Platelet Count 321 k/uL (150-450); Potassium 4.8 mmol/L (3.5-5.1); RBC 3.92 m/uL (3.80-5.40); RDW 16.4 % (11.5-15.5); WBC 11.2 k/uL (3.8-10.6)
[2018-08-30] MEDS: CHOLECALCIFEROL 1,000 UNIT TAB PO SCH (09:30)
[2018-08-30] MEDS: SENNOSIDES 8.6 MG TAB PO SCH (09:31)
[2018-08-30] MEDS: HEPARIN SODIUM,PORCINE 5,000 UNIT/ML 1 ML VIAL SQ SCH (09:31)
[2018-08-30] MEDS: metFORMIN 500 MG TAB PO SCH (09:31)
[2018-08-30] MEDS: INSULIN ASPART (NovoLOG) 100 UNIT/ML VIAL SQ SCH ×3 (09:31→16:56)
[2018-08-30] MEDS: MONTELUKAST 10 MG TAB PO SCH (09:31)
[2018-08-30] MEDS: POLYETHYLENE GLYCOL 3350 17 GM POWD.PACK PO SCH (09:31)
[2018-08-30] MEDS: BACLOFEN 10 MG TAB PO SCH (09:31)
[2018-08-30] MEDS: LORATADINE 10 MG TAB PO SCH (09:32)
[2018-08-30] MEDS: CITALOPRAM HYDROBROMIDE 10 MG TAB PO SCH (09:32)
[2018-08-30] MEDS: DOCUSATE 100 MG CAP PO SCH (09:32)
[2018-08-30] MEDS: FERROUS SULFATE 325 MG TAB PO SCH (09:32)
[2018-08-30] MEDS: methylPREDNISolone SOD SUCCI 40 MG/ML 1 ML VIAL IV SCH ×2 (09:32→16:56)
--- NOTE | 2018-08-30 10:30 | P.PN ---
Subjective Progress Note Date: 08/30/18 Principal diagnosis: Community acquired pneumonia involving right middle lobe, reactive hilar adenopathy This is a 67-year-old female, with multiple medical problems including bilateral paraplegia since she had spinal surgery in 2006. Patient is also known to have type 2 diabetes, obesity, fibromyalgia, urinary stress incontinence, obstructive sleep apnea syndrome maintained on BiPAP, patient is usually followed by a visiting physician. Patient was last admitted to the hospital in March of 2018, and at that time she was seen for acute exacerbation of asthma and tracheo bronchitis. Her other medical problems included at the time urinary tract infection secondary to ESBL E. coli, and Pseudomonas. This time, the patient was admitted mostly with a few days' history of increased cough, congestion, chest tightness, wheezing, fevers, but no chills, poor appetite, and felt sort of run down. Upon admission, the patient had a chest CT of the chest, ruled out pulmonary embolism. There was no evidence of effusions, she was found to have some enlarged axillary and mediastinal right hilar lymph nodes, nonspecific, she was also found to have sclerotic changes on T12 vertebral body hence a PET scan was recommended. Pulmonary-nguyen she was found to have groundglass opacity in the right middle lobe suggestive of pneumonia. Patient has significant ALLERGIES to different antibiotics, hence I chose to start the patient on Levaquin. On 08/26/2018 patient seen in follow-up on medical surgical floor. She is resting in bed, she states she still short of breath, and coughing. Using her CPAP unit at night, during the day she is on 4 L of oxygen her pulse ox is 91%, she is afebrile, patient is mostly bedridden, there has been no fever or chills, today's labs have been reviewed, white blood cell count is 6.1, hemoglobin is 9.7, sodium is 143, potassium is 4.8, chloride is 101, CO2 is 34, B1 is 248, and creatinine is 1.08. And continues on empiric antibiotics in the form of Levaquin, she is on IV steroids, she is on Tamiflu for evidence of influenza A infection. Making slow improvement, will continue with current medical treatment. On 08/30/2017 patient seen in follow-up on medical surgical floor. She is resting comfortably in bed, she states she has occasional cough and she is able to bring up some whitish colored sputum, overall she is feeling better, less congested, less wheezy and less short of breath, vital signs are stable, no fever or chills, remains on 3 L of oxygen and the pulse ox of 94%, she has her home Trilogy ventilator from home, and patient uses his at bedtime and as needed through the day. No acute events overnight. Patient has been treated with Tamiflu, and empiric antibiotics for right middle lobe pneumonia, clinically improving, stable for discharge home today. Objective - Vital Signs Vital signs: Vital Signs Temp 97.1 F L 08/30/18 05:00 Pulse 96 08/30/18 07:40 Resp 18 08/30/18 05:00 BP 148/73 08/30/18 05:00 Pulse Ox 94 L 08/30/18 07:22 Intake & Output 08/29/18 08/30/18 08/30/18 18:59 06:59 18:59 Intake Total 120 Output Total 1850 1000 Balance -1850 -880 Weight 142.428 kg Intake: Oral 120 Output: Urine 1850 1000 Uretheral (Stallings) 300 500 Other: Voiding Method Indwelling Catheter Indwelling Catheter Indwelling Catheter # Voids 1 2 - Exam GENERAL EXAM: Alert, obese 67-year-old obese white female, on 4 L of oxygen with pulse ox of 91% comfortable in no apparent distress. HEAD: Normocephalic/atraumatic. EYES: Normal reaction of pupils, equal size. Conjunctiva pink, sclera white. NOSE: Clear with pink turbinates. THROAT: No erythema or exudates. NECK: No masses, no JVD, no thyroid enlargement, no adenopathy. CHEST: No chest wall deformity. Symmetrical expansion. LUNGS: Equal air entry with diminished breath sounds with end expiratory wheezes CVS: Regular rate and rhythm, normal S1 and S2, no gallops, no murmurs, no rubs ABDOMEN: Soft, nontender. No hepatosplenomegaly, normal bowel sounds, no guarding or rigidity. EXTREMITIES: No clubbing, no edema, no cyanosis, 2+ pulses and upper and lower extremities. MUSCULOSKELETAL: Muscle strength and tone normal. SPINE: No scoliosis or deformity SKIN: No rashes CENTRAL NERVOUS SYSTEM: Alert and oriented -3. No focal deficits, tone is normal in all 4 extremities. PSYCHIATRIC: Alert and oriented -3. Appropriate affect. Intact judgment and insight. - Labs CBC & Chem 7: 08/30/18 07:48 08/30/18 07:48 Labs: Abnormal Lab Results - Last 24 Hours (Table) 08/29/18 08/29/18 08/29/18 Range/Units 11:48 17:01 20:10 WBC (3.8-10.6) k/uL Hgb (11.4-16.0) gm/dL MCHC (31.0-37.0) g/dL RDW (11.5-15.5) % Neutrophils # (1.3-7.7) k/uL Carbon Dioxide (22-30) mmol/L BUN (7-17) mg/dL Creatinine (0.52-1.04) mg/dL Glucose (74-99) mg/dL POC Glucose (mg/dL) 177 H 113 H 172 H (75-99) mg/dL 08/30/18 08/30/18 08/30/18 Range/Units 07:14 07:48 07:48 WBC 11.2 H (3.8-10.6) k/uL Hgb 10.4 L (11.4-16.0) gm/dL MCHC 30.3 L (31.0-37.0) g/dL RDW 16.4 H (11.5-15.5) % Neutrophils # 8.7 H (1.3-7.7) k/uL Carbon Dioxide 34 H (22-30) mmol/L BUN 68 H (7-17) mg/dL Creatinine 1.19 H (0.52-1.04) mg/dL Glucose 126 H (74-99) mg/dL POC Glucose (mg/dL) 147 H (75-99) mg/dL Assessment and Plan Plan: Assessment: 1 acute community-acquired pneumonia involving right middle lobe as noted on CT of the chest. 2 reactive hilar adenopathy, however the possibility of malignancy is not entirely ruled out, and the patient will need a repeat CT of the chest in the next 4 months. 3 acute exacerbation of moderate persistent asthma 4 type 2 diabetes, maintained on insulin. 5 morbid obesity with BMI more than 50 6 obstructive sleep apnea syndrome maintained on BiPAP 7 benign essential hypertension 8 fibromyalgia 9 chronic paraplegia since 2006, related to previous spinal injury 10 acute influenza A infection Plan: Patient is doing well, continues to improve, vital signs are stable, no fever or chills, she's been treated with a course of Tamiflu, and Levaquin for right middle lobe pneumonia, clinically stable, discharge home today. She has a visiting physician, and she is to follow up with the visiting physician. She is to finish a course of Tamiflu, oral antibiotics, prednisone taper, the patient can continue on her nebulized treatments, previously prescribed. I performed a history & physical examination of the patient and discussed their management with my nurse practitioner, Ashley Ahumada. I reviewed the nurse practitioner's note and agree with the documented findings and plan of care. Lung sounds are positive for diffuse wheezes throughout the lung millan. The findings and the impression was discussed with the patient. I attest to the documentation by the nurse practitioner. Time with Patient: Less than 30
[2018-08-30 11:28] LABS: Glucose,Whole Blood 181 mg/dL (75-99)
[2018-08-30 12:20] VITALS: BP 137/72; PULSE 91; RESP 17; TEMP 98.1
[2018-08-30] MEDS: FUROSEMIDE 80 MG TAB PO SCH (13:16)
[2018-08-30] MEDS: MELOXICAM 7.5 MG TAB PO SCH (13:16)
[2018-08-30 16:47] LABS: Glucose,Whole Blood 243 mg/dL (75-99)
[2018-08-30] MEDS: ASCORBIC ACID 500 MG TAB PO SCH (16:56)
--- NOTE | 2018-08-30 22:26 | DS ---
DISCHARGE SUMMARY DATE OF ADMISSION: 08/22/2018 DATE OF DISCHARGE: 08/30/2018 FINAL DIAGNOSES: 1. Acute exacerbation of moderate persistent asthma secondary to influenza A pneumonitis, POA. 2. Chronic hypoxic respiratory failure from asthma. 3. Diabetes mellitus type 2, chronically on insulin. 4. Chronic fibromyalgia. 5. Hyperlipidemia. 6. Essential hypertension. 7. Primary osteoarthritis. 8. Morbid obesity with BMI more than 30. 9. Chronic bilateral paraplegia from spinal injury in 2006. 10.Chronic urinary stress incontinence. 11.Obstructive sleep apnea uses BiPAP. 12.Normocytic anemia cause undetermined. CONSULTATIONS: Dr. Perkins and colleagues from [facility]. HOSPITAL COURSE: This patient presented with asthma exacerbation and influenza A pneumonitis. The patient did not want to use Tamiflu. The patient responded well otherwise to steroids, antibiotics, doing much better by the time of discharge. This case was discussed . PHYSICAL EXAMINATION: On examination, temperature 98.1, pulse 91, respiration 17, blood pressure 137/72, pulse ox 93 percent on 4 L. LUNGS: Improved air entry. PSYCH: AO x3. Weakness in both lower extremities. INVESTIGATIONS: White count 11.2, potassium 4.8, BUN 68, creatinine 1.19. DISCHARGE MEDICATIONS: 1. Vitamin C 1000 mg p.o. daily. 2. Aspirin 81 mg q.h.s. 3. Baclofen 10 mg b.i.d. 4. Lasix 80 mg p.o. daily. 5. Singulair 10 mg p.o. daily. 6. Ventolin HFA 2 puffs q.4 p.r.n. 7. Celexa 10 mg p.o. daily. 8. Prilosec 20 mg q.h.s., slow release. 9. Iron 45 mg p.o. daily. 10.Neurontin 300 mg q.h.s. 11.[place] 5 one tablet q.8 p.r.n. 12.DuoNeb q.4. 13.Lactulose 20 grams p.o. every 2 p.r.n. 14.MiraLAX 17 grams p.o. Q 72 hours. 15.Pravachol 20 mg q.h.s. 16.Pulmicort 1 mg b.i.d. 17.Celebrex 200 mg p.o. daily. 18.Zyrtec 10 mg p.o. daily. 19.Vitamin D3 2000 units p.o. daily. 20.Humalog per scale. 21.Lantus 40 units subcu q.h.s. 22.Glucophage 1000 mg b.i.d. 23.Senokot 1 tablet p.o. daily. 24.Prednisone taper. 25.Home oxygen to continue. [facility]. FOLLOWUP: Follow up with Visiting Physician in 3 days. Copy to visiting physician Dr. Andrade. MMMARTA / JONNN: [phone] /
--- NOTE | 2018-09-02 01:33 | CDI ---
Documentation Clarification Form Date: 09/02/18 From: Toro Charles Phone: call to [phone] Admit Date: 08/22/2018 4:05:00 AM Patient Name: Sherry De Leon Visit Number: [id number] Discharge Date: 08/30/2018 8:06:00 PM ATTENTION: The Clinical Documentation Specialists (CDI) and [facility] Coding Staff appreciate your assistance in clarifying documentation. Please respond to the clarification below the line at the bottom and electronically sign. The CDI & [facility] Coding staff will review the response and follow-up if needed. Please note: Queries are made part of the Legal Health Record. If you have any questions, please contact the author of this message via ITS. Dr. Dony Rodriguez Pneumonia was documented in Progress notes(08/25,08/26,08/27,08/28) as PNA possibily due to Gram negative treated with levaquin by Tatiana Saleem. and later on documented as Influenza A and community acquired pneumonia. Antibiotics: Levaquin In order to capture the severity of condition, please clarify if the condition signifies and you are treating for: Bacterial Pneumonia, specify causal organism (if known) Gram Negative Pneumonia ?Other bacteria (please specify) Healthcare Acquired Pneumonia/Pneumonia, unspecified Other, please specify Unable to determine bacterial pneumonia suspect gram negative organism, POA MTDD
== END 2018-08-30 20:06 | disposition home health service (06) | DRG 177 ==
LOC: EC 00:24 → 4MS4W 04:05 → 3NMEDONC 08-23 17:09
PROVIDERS: ADMIT Hospitalist; ATTEND Hospitalist
DX: J10.00 Influenza due to other identified influenza virus with unspecified type of pneumonia (principal); J96.21 Acute and chronic respiratory failure with hypoxia; J15.6 Pneumonia due to other Gram-negative bacteria; J45.41 Moderate persistent asthma with (acute) exacerbation; G82.20 Paraplegia, unspecified; J44.0 Chronic obstructive pulmonary disease with (acute) lower respiratory infection; Z68.43 Body mass index [BMI] 50.0-59.9, adult; J96.11 Chronic respiratory failure with hypoxia; J18.9 Pneumonia, unspecified organism; E11.9 Type 2 diabetes mellitus without complications; M79.7 Fibromyalgia; E66.01 Morbid (severe) obesity due to excess calories; G47.33 Obstructive sleep apnea (adult) (pediatric); D64.9 Anemia, unspecified; N39.3 Stress incontinence (female) (male); M19.91 Primary osteoarthritis, unspecified site; I50.9 Heart failure, unspecified; I11.0 Hypertensive heart disease with heart failure; E78.5 Hyperlipidemia, unspecified; K21.9 Gastro-esophageal reflux disease without esophagitis; F32.9 Major depressive disorder, single episode, unspecified; R59.0 Localized enlarged lymph nodes; Z16.12 Extended spectrum beta lactamase (ESBL) resistance; Z96.653 Presence of artificial knee joint, bilateral; Z79.51 Long term (current) use of inhaled steroids; Z79.82 Long term (current) use of aspirin; Z79.899 Other long term (current) drug therapy; Z80.1 Family history of malignant neoplasm of trachea, bronchus and lung; Z87.440 Personal history of urinary (tract) infections; Z79.4 Long term (current) use of insulin; Z79.1 Long term (current) use of non-steroidal anti-inflammatories (NSAID); Z88.1 Allergy status to other antibiotic agents; Z88.2 Allergy status to sulfonamides; Z88.0 Allergy status to penicillin; Z88.8 Allergy status to other drugs, medicaments and biological substances; Z90.89 Acquired absence of other organs; Z98.890 Other specified postprocedural states; Z98.42 Cataract extraction status, left eye; Z98.41 Cataract extraction status, right eye; Z87.891 Personal history of nicotine dependence; Z99.89 Dependence on other enabling machines and devices; Z85.828 Personal history of other malignant neoplasm of skin; Z87.01 Personal history of pneumonia (recurrent)
CPT/HCPCS: 36415; 71045; 71046; 71275; 72070; 80048; 80053; 83036; 83605; 83880; 84484; 85025; 85379; 85610; 85652; 85730; 86140; 87502; 93005; 94640; 94660; 94760; 99285

== ENCOUNTER → 2018-10-04 | Outpatient (CLI) | payer MEDICARE, OTHER ==
--- NOTE | 2018-10-04 13:43 | CT ---
EXAMINATION TYPE: CT chest w con DATE OF EXAM: 10/04/2018 COMPARISON: Chest x-ray 08/28/2018, chest CT 08/22/2018 HISTORY: Abnormal chest CT CT DLP: 827 mGycm Automated exposure control for dose reduction was used. CONTRAST: CT scan of the chest is performed with IV Contrast, patient injected with 100 mL of Isovue 300. FINDINGS: LUNGS: The lungs are grossly clear, there is no concerning parenchymal mass or nodule identified. T here is no pneumothorax seen. The tracheobronchial tree is patent. Some minimal dependent atelectati c changes present at the lung bases, no pleural effusion MEDIASTINUM: The paratracheal adenopathy is again noted extending to the retrocaval pretracheal regio n, some small subcentimeters prevascular nodes are also present. There are some interstitial changes within the lungs, some probable linear scarring. No pericardial effusion is seen. Pulmonary artery i s enlarged. AORTA: No additional significant abnormality is seen. OTHER: The bones show a similar appearance. Prior vertebral compression fracture, kyphosis, probable vertebroplasty changes, postop changes are again seen at the thoracic lumbar junction with laminecto mies at the upper lumbar spine. There is a port in the left breast, catheter courses into the superio r vena cava. Low dense focus is associated with the left kidney measuring 16 to 17 mm. IMPRESSION: Improved aeration within the lungs that previously showed groundglass opacity with some minimal dependent atelectatic changes present. Mediastinal adenopathy is borderline in stable, correl ate for pulmonary artery hypertension. Additional findings above.
== END | disposition home or self-care (01) ==
LOC: RADCTMAIN 11:50
PROVIDERS: ATTEND Family Medicine
DX: J98.11 Atelectasis (principal); R59.0 Localized enlarged lymph nodes; I27.21 Secondary pulmonary arterial hypertension; R91.8 Other nonspecific abnormal finding of lung field
CPT/HCPCS: 82565; 84520; 71260; 36415; Q9967

== ENCOUNTER → 2018-10-21 | Outpatient (CLI) | payer MEDICARE, OTHER ==
[2018-10-22 02:47] LABS: Scallop IgE <0.10 kU/L; Walnut IgE (Food) <0.10 kU/L
[2018-10-22 02:48] LABS: Clam IgE <0.10 kU/L; Peanut IgE <0.10 kU/L; Shrimp IgE <0.10 kU/L; Soybean IgE <0.10 kU/L
[2018-10-22 02:50] LABS: Codfish IgE <0.10 kU/L; Egg White IgE <0.10 kU/L
[2018-10-22 02:58] LABS: Alternaria alternata IgE <0.10 kU/L; Maple (Box Elder) IgE <0.10 kU/L
[2018-10-22 02:59] LABS: Birch IgE <0.10 kU/L; Elm IgE <0.10 kU/L; Oak IgE <0.10 kU/L; Ragweed,Common IgE <0.10 kU/L; Red Top (Bentgrass) IgE <0.10 kU/L
[2018-10-22 03:01] LABS: Cockroach IgE <0.10 kU/L
[2018-10-22 03:02] LABS: Cat Epith & Dander IgE <0.10 kU/L; Dermato. farinae IgE <0.10 kU/L; Dog Dander IgE <0.10 kU/L
== END | disposition home or self-care (01) ==
LOC: LABWHC1 14:04
PROVIDERS: ATTEND Internal Medicine Critical Care Medicine
DX: J45.909 Unspecified asthma, uncomplicated (principal)
CPT/HCPCS: 36415; 82785; 85008; 86003

== ENCOUNTER → 2018-12-25 | Outpatient (CLI) | payer MEDICARE, OTHER ==
--- NOTE | 2018-12-25 15:42 | CT ---
EXAMINATION TYPE: CT abdomen pelvis wo con DATE OF EXAM: 12/25/2018 COMPARISON: 11/19/2010 HISTORY: 68-year-old female Left side flank pain. CT DLP: 1403.7 mGycm. Automated exposure control for dose reduction was used. TECHNIQUE: Contiguous axial scanning of the abdomen and pelvis without IV contrast. Coronal and sagit amarilis reconstructions performed. FINDINGS: Heart upper limits of normal in size without pericardial effusion. Subpleural thickening medial poste rior left base was present back on 08/22/2018 and suggests area of chronic scarring and volume loss. No pleural effusion. Liver mildly enlarged at 20.0 cm. Gallbladder mildly hydropic at 4.5 cm wide. Adrenal glands, right kidney, spleen, atrophic pancreas show no gross abnormal by noncontrast CT. Subtle contour nodularity measuring 8 mm along lateral upper pole of the left kidney, axial image 37. Motion artifacts are present. Nonspecific dominant 1.2 cm gastric hepatic ligament lymph node may be reactive/post inflammatory. No dilated small bowel, free fluid, or free air. Focal irregular masslike thickening measuring 4.5 cm at the level of the low hanging umbilicus, refer to axial image 127 and sagittal image 66. The C7 present previously and suggests some type of chroni c postinflammatory etiology. Moderate stool burden. Redundant sigmoid colon. No pericolonic inflammatory change. Stallings catheter is in place decompressing the bladder. Uterus may be markedly atrophic. Neither ovary is clearly identified. No abnormal fluid collection the pelvis or pelvic lymphadenopathy. Bones: Generalized muscular atrophy. Advanced degenerative and postoperative changes throughout the l umbar spine with kyphotic deformity thoracolumbar junction and grade 2 anterolisthesis which appears fixed at L4-L5. Bony defect within the anterior aspect of the T12 vertebral body was present on 2018 suggesting chronic fracture deformity. IMPRESSION: 1. No hydronephrosis or renal calculi seen. 2. Left kidney has a subtle new 8 mm contour nodularity along the lateral upper pole. 3 month follow -up CT recommended to exclude an early neoplasm. 3. Chronic scarring and volume loss medial left base. 4. Hydropic gallbladder at 4.5 cm wide. This may relate to fasting state. If right upper quadrant pa in or concern for early acute cholecystitis, follow-up ultrasound or HIDA scan. 5. Hepatomegaly at 20.0 cm. 6. Extensive prior postsurgical and posttraumatic changes in the lumbar spine and thoracolumbar junc tion. 7. Moderate stool burden within the redundant sigmoid colon. Stallings catheter in place.
== END | disposition home or self-care (01) ==
LOC: RADCTMAIN 12:48
PROVIDERS: ATTEND Family Medicine
DX: N28.89 Other specified disorders of kidney and ureter (principal); R16.0 Hepatomegaly, not elsewhere classified
CPT/HCPCS: 74176

== ENCOUNTER → 2019-01-07 | Outpatient (CLI) | payer MEDICARE, OTHER ==
--- NOTE | 2019-01-09 10:23 | MM ---
Reason for exam: screening (asymptomatic). Last mammogram was performed 1 year and 1 month ago. History: Benign US biopsy breast VAD RT of the right breast, January 03, 2016. Benign stereotactic core biopsy of the right breast, January 30, 2003. Core biopsy of the right breast. Physical Findings: A clinical breast exam by your physician is recommended on an annual basis and results should be correlated with mammographic findings. MG 3D Screening Mammo W/Cad Bilateral CC and MLO view(s) were taken. Prior study comparison: November 29, 2017, bilateral MG 3d screening mammo w/cad. November 08, 2016, bilateral MG 3d diag mammo w/cad ZAY. There are scattered fibroglandular densities. There are benign appearing round calcifications bilaterally. Previous mammotome biopsy in the right breast.. There is chronic nodularity in the left breast. There is no discrete abnormality. ASSESSMENT: Benign, BI-RAD 2 RECOMMENDATION: Routine screening mammogram of both breasts in 1 year.
== END | disposition home or self-care (01) ==
LOC: RADMAMWWP 12:55
PROVIDERS: ATTEND Family Medicine
DX: Z12.31 Encounter for screening mammogram for malignant neoplasm of breast (principal)
CPT/HCPCS: 77063; 77067

== ENCOUNTER 2020-11-01 16:25 | Observation (INO) | payer MEDICARE, OTHER ==
[2020-11-01] MEDS ORDERED: ALBUTEROL HFA INHALER INHALATION STA (16:31)
[2020-11-01] MEDS ORDERED: methylPREDNISolone SOD SUCCI 40 MG/ML 1 ML VIAL IV STA (16:33)
[2020-11-01 16:52] LABS: Appearance,Urine Clear (Clear); Bacteria,Urine Rare /hpf; Bilirubin,Urine Negative (Negative); Blood,Urine Trace (Negative); Budding Yeast,Urine Occasional /hpf; Color,Urine Light Yellow; Glucose,Urine (UA) Negative (Negative); Hyaline Casts,Urine 4 /lpf (0-2); Ketones,Urine Negative (Negative); Leukocyte Esterase,Urine Small (Negative); Nitrite,Urine Negative (Negative); Protein,Urine Trace (Negative); RBC,Urine 6 /hpf (0-5); Specific Gravity,Urine 1.009 (1.001-1.035); Squamous Epithelial Cell,Urine <1 /hpf (0-4); Urobilinogen,Urine <2.0 mg/dL (<2.0); WBC,Urine 6 /hpf (0-5)
--- NOTE | 2020-11-01 16:54 | ED ---
General Adult HPI - General Chief complaint: Shortness of Breath Stated complaint: BLANK Time Seen by Provider: 11/01/20 16:30 Source: EMS, RN notes reviewed, old records reviewed Mode of arrival: EMS Limitations: no limitations - History of Present Illness Initial comments: Patient is a 70-year-old female with past medical history remarkable for asthma/COPD on chronic 3 L nasal cannula at home, diabetes, fibromyalgia, GERD, hypertension, sleep apnea, who presents emergency Department complaining of shortness of breath. This is been ongoing for multiple days. Patient has a history remarkable for frequent asthma exacerbations in the last few months, which patient states she believes this is current cause of her DIP. She endorses wheezing. States that she has minimal improvement with breathing treatments and presents seeking steroids. Patient is also notes some abdominal distention as well as some mild abdominal pain suprapubically and generalized. She does have a chronic Bennett catheter secondary to urinary retention and has noticed somewhat decreased amount of urine collection per day in the bag. She denies any hematuria. Denies any nausea or vomiting. She states there is no change in her bowel movements. She does endorse some mild chest discomfort over the last several chest that comes and goes. Describes it as a achy sensation. It does not radiate. It self resolves. Patient presents after being sent in by her PCP for BLANK. - Related Data Home Medications Medication Instructions Recorded Confirmed Ascorbic Acid [Vitamin C] 500 mg PO BID 10/22/13 11/01/20 Aspirin 81 mg PO HS 10/22/13 11/01/20 Baclofen [Lioresal] 10 mg PO BID 10/22/13 11/01/20 Furosemide [Lasix] 80 mg PO DAILY 10/22/13 11/01/20 Montelukast Sodium [Singulair] 10 mg PO HS 10/22/13 11/01/20 Omeprazole [PriLOSEC] 20 mg PO HS 05/16/17 11/01/20 Ipratropium-Albuterol Nebulize 3 ml INHALATION RT-QID PRN 04/10/18 11/01/20 [Duoneb 0.5 mg-3 mg/3 ml Soln] Pravastatin Sodium [Pravachol] 20 mg PO HS 04/10/18 11/01/20 Celecoxib [CeleBREX] 200 mg PO DAILY 08/22/18 11/01/20 Cetirizine HCl [Zyrtec] 10 mg PO DAILY 08/22/18 11/01/20 Cholecalciferol (Vitamin D3) 4,000 unit PO DAILY 08/22/18 11/01/20 [Vitamin D3] Insulin Glargine [Lantus] 38 unit SQ HS 08/22/18 11/01/20 metFORMIN HCL [Glucophage] 500 mg PO BID 08/22/18 11/01/20 Acetaminophen Tab [Tylenol] 325 mg PO Q6H PRN 11/01/20 11/01/20 Amoxicillin/Potassium Clav 1 tab PO Q12HR 11/01/20 11/01/20 [Augmentin 875-125 Tablet] Budesonide [Pulmicort] 1 mg INHALATION RT-Q6H PRN 11/01/20 11/01/20 Budesonide/Formoterol Fumarate 2 puff INHALATION RT-BID PRN 11/01/20 11/01/20 [Symbicort 160-4.5 Mcg Inhaler] Citalopram Hydrobromide [CeleXA] 20 mg PO DAILY 11/01/20 11/01/20 Cranberry Fruit Concentrate [Azo 1,000 mg PO DAILY 11/01/20 11/01/20 Cranberry] Elderberry Fruit and Flower [Black 1 cap PO DAILY 11/01/20 11/01/20 Elderberry 575 mg Cap] Furosemide [Lasix] 40 mg PO HS PRN 11/01/20 11/01/20 Gabapentin [Neurontin] 100 mg PO HS 11/01/20 11/01/20 Insulin Aspart [NovoLOG Flexpen] See Protocol SQ AC-TID PRN 11/01/20 11/01/20 Methenamine Hippurate 1 gm PO BID 11/01/20 11/01/20 Multivitamins, Thera [Multivitamin 1 tab PO DAILY 11/01/20 11/01/20 (formulary)] Nitroglycerin Sl Tabs [Nitrostat] 0.4 mg SUBLINGUAL Q5M PRN 11/01/20 11/01/20 Sennosides-Docusate Sodium 3 tab PO BID 11/01/20 11/01/20 [Senokot-S] Slow Release Iron 45mg 45 mg PO BID 11/01/20 11/01/20 Zinc 50 mg PO DAILY 11/01/20 11/01/20 allopurinoL [Zyloprim] 100 mg PO BID 11/01/20 11/01/20 hydrALAZINE HCL [Apresoline] 25 mg PO TID 11/01/20 11/01/20 Allergies Allergy/AdvReac Type Severity Reaction Status Date / Time acyclovir Allergy Rash/Hives Verified 08/22/18 08:03 ampicillin [From Unasyn] Allergy Dyspnea Verified 08/22/18 08:03 cephalexin [Cephalexin] Allergy Rash/Hives Verified 08/22/18 08:03 cephalexin monohydrate Allergy Rash/Hives Verified 08/22/18 08:03 [From Keflex] Cephalosporins Allergy Unknown Verified 08/22/18 08:03 erythromycin base Allergy Unknown Verified 08/22/18 08:03 famciclovir Allergy Rash/Hives Verified 08/22/18 08:03 meropenem [From Merrem] Allergy Anaphylaxis Verified 08/22/18 08:03 nitrofurantoin Allergy Unknown Verified 08/22/18 08:03 [From Macrobid] nitrofurantoin Allergy Unknown Verified 08/22/18 08:03 macrocrystalline [From Macrobid] sulbactam [From Unasyn] Allergy Dyspnea Verified 08/22/18 08:03 sulfamethoxazole Allergy Unknown Verified 08/22/18 08:03 [From Bactrim] trimethoprim [From Bactrim] Allergy Unknown Verified 08/22/18 08:03 Review of Systems ROS Statement: Those systems with pertinent positive or pertinent negative responses have been documented in the HPI. Review of Systems: CONST: Denies fever EYES: Denies blurry vision ENT: Denies nasal congestion C/V: Endorses chest RESP: Endorses shortness of breath GI: Endorses abdominal pain : Denies dysuria SKIN: Denies rash. MSK: Denies joint pain. NEURO: Denies headache ROS Other: All systems not noted in ROS Statement are negative. Past Medical History Past Medical History: Asthma, COPD, Diabetes Mellitus, Fibromyalgia, GERD/Reflux, Hyperlipidemia, Hypertension, Osteoarthritis (OA), Pneumonia, Sleep Apnea/CPAP/BIPAP Additional Past Medical History / Comment(s): IDC, FREQ UTI. anemia; osteopenia; parapalegic "R/T SPINAL SURG 2006, AND AMBULANCE INJURY LATER", obstructive sleep apnea, chronic Bennett catheter, shingles History of Any Multi-Drug Resistant Organisms: ESBL Date of last positivie culture/infection: 04/17/18 MDRO Source:: Urine ESBL Past Surgical History: Adenoidectomy, Back Surgery, Joint Replacement, Orthopedic Surgery, Tonsillectomy Additional Past Surgical History / Comment(s): Neck surgery, ZAY KNEE REPLACEMENT, FUSION T-12 TO L-5 METAL REMOVED, L5 TO S1 - AND REFUSED,KNEE ARTHROSCOPY X3. RT FOOT METATRSAL BROKEN, BIOPSY ON ZAY BREAST-NEG, ZAY CARPAL TUNNEL, LT HAND BASAL. ARTHROSOCPY,UMBILICAL HERNIA, GARZA 09/2012; LAPROSCOPY, B CATARACTS. Garza removed Past Anesthesia/Blood Transfusion Reactions: Family History of Problems w/ Anesthesia, Postoperative Nausea & Vomiting (PONV) Additional Past Anesthesia/Blood Transfusion Reaction / Comment(s): HAD BLOOD TRANSFUSION IN PAST. SISTER HAD PROB BREATHING AFTER SURG. Past Psychological History: Depression Smoking Status: Never smoker Past Alcohol Use History: None Reported Past Drug Use History: None Reported - Past Family History Father Family Medical History: Cancer Additional Family Medical History / Comment(s): LUNG CA - BOTH PARENTS Mother Family Medical History: Cancer General Exam - General Exam Comments Initial Comments: General: Morbidly obese and appears in no acute distress. HEAD: Normal with no signs of head trauma. EYES: PERRLA, EOMI, conjunctiva normal, no discharge. Pupils are 3 mm bilaterally. ENT: Hearing grossly intact, normal oropharynx. RESPIRATORY: Patient has bilateral end expiratory wheezing that is mild. There is no tachypnea. There is no increased work of breathing. No rhonchi are appreciated. C/V: Patient is mildly tachycardic with a regular rhythm. S1 and S2 are auscultated. Peripheral pulses are 2+ and intact throughout. Patient does have mild lower extremity pitting edema, approximately 1+, just above the ankles. ABD: Abdomen soft, mildly generalized distended. Patient's mildly tender to palpation epigastric region. There is no guarding. There are no peritoneal signs. EXT: Normal range of motion, no obvious deformity SKIN: No rashes or lesions observed on exposed skin. NEURO: Alert and oriented 4. No focal sensory or strength deficits. At baseline. : Chronic bennett catheters in place. Urine appears yellow without hematuria. Limitations: no limitations Course Vital Signs 11/01/20 11/01/20 11/01/20 16:27 16:34 18:33 Temperature 98.4 F Pulse Rate 105 H 102 H 94 Respiratory 20 20 20 Rate Blood Pressure 155/60 O2 Sat by Pulse 100 100 Oximetry 11/01/20 11/01/20 11/01/20 18:42 19:58 20:08 Temperature Pulse Rate 94 90 93 Respiratory 18 Rate Blood Pressure O2 Sat by Pulse Oximetry 11/01/20 11/01/20 22:20 22:47 Temperature Pulse Rate 96 91 Respiratory 22 Rate Blood Pressure 109/87 O2 Sat by Pulse 95 Oximetry Medical Decision Making - Medical Decision Making Based on the patient's presentation and physical exam, it does appear that she is expressing a mild asthma exacerbation, however I cannot rule out the possibility of cardiac etiology for her current symptoms at this time. Therefore we will obtain baseline laboratory studies as well as a troponin and EKG, chest x-ray. Patient does have some complaints of abdominal distention with mild abdominal pain and therefore we will obtain a CT abdomen and pelvis x- ray failed to obtain a reliable ultrasound of the abdomen. She is complaining of possible urinary retention she has noticed less urine in her Bennett bag over the last week or so since her last Bennett was replaced. CT abdomen and pelvis will also assess for any signs of urinary retention. We will obtain a urinalysis swealex. She'll be given albuterol via inhaler initially and to look over 19 swab and influenza swabs are back. She also given 40 mg IV Solu-Medrol as well as 2 g of magnesium for breathing. She'll be given IV Toradol for pain management. Patient was in agreement with this plan. Patient's EKG showed no signs of acute ischemia. Chest x-ray showed no acute cardiopulmonary process. Abdominal CT revealed no acute intra-abdominal process. Patient does have multilevel disc disease in her lower back with a possible uncertain acuity compression fracture of the lumbar spine. Patient has chronic back pain at this site. I suspect this is likely not acute. Laboratory studies were remarkable for a mild leukocytosis of 11.6, normocytic anemia with a hemoglobin of 9.5, elevated bicarb of 32 likely secondary to her chronic respiratory failure requiring home oxygen, as well as a urinalysis that revealed yeast as well as a mild UTI which she is currently receiving treatment for. Patient's cold and flu were negative. Troponin is negative. BNP is negative. Reevaluation, patient's feeling mildly improved but is still wheezing bilaterally. I discussed the results of her imaging and laboratory studies with her and it does not appear that she is retaining urine. I explained I would like to treat her with breathing treatments and reevaluated. She was in agreement with plan. Following additional breathing treatments, patient still wheezing. Would like to admit the hospital for further breathing treatments for her asthma exacerbation. We'll also treat her fungal infection with fluconazole here in the department and continue her on her home antibiotics pinchers in agreement with this plan. Multiple attempts were made to contact the patient's admitting team, as her PCP Dr. dillon admits to Dr. Rodriguez who is covered by Dr. Payne. Dr. Payne did not answer multiple attempts to contact him. Therefore she will be admitted to [facility], Dr. michaud, who I spoke with and accepted the patient. Patient was admitted in fair condition. - Lab Data Result diagrams: 11/01/20 16:51 11/01/20 16:51 Lab Results 11/01/20 11/01/20 11/01/20 Range/Units 16:51 16:51 16:51 WBC 11.6 H (3.8-10.6) k/uL RBC 3.26 L (3.80-5.40) m/uL Hgb 9.5 L (11.4-16.0) gm/dL Hct 30.4 L (34.0-46.0) % MCV 93.5 (80.0-100.0) fL MCH 29.1 (25.0-35.0) pg MCHC 31.1 (31.0-37.0) g/dL RDW 16.3 H (11.5-15.5) % Plt Count 208 (150-450) k/uL MPV 7.3 Neutrophils % 81 % Lymphocytes % 9 % Monocytes % 2 % Eosinophils % 6 % Basophils % 0 % Neutrophils # 9.4 H (1.3-7.7) k/uL Lymphocytes # 1.1 (1.0-4.8) k/uL Monocytes # 0.3 (0-1.0) k/uL Eosinophils # 0.7 (0-0.7) k/uL Basophils # 0.0 (0-0.2) k/uL Hypochromasia Moderate Anisocytosis Slight PT 10.0 (9.0-12.0) sec INR 0.9 (<1.2) APTT 23.1 (22.0-30.0) sec Sodium 141 (137-145) mmol/L Potassium 4.6 (3.5-5.1) mmol/L Chloride 103 (98-107) mmol/L Carbon Dioxide 32 H (22-30) mmol/L Anion Gap 6 mmol/L BUN 40 H (7-17) mg/dL Creatinine 1.00 (0.52-1.04) mg/dL Est GFR (CKD-EPI)AfAm 66 (>60 ml/min/1.73 sqM) Est GFR (CKD-EPI)NonAf 58 (>60 ml/min/1.73 sqM) Glucose 204 H (74-99) mg/dL Calcium 9.0 (8.4-10.2) mg/dL Magnesium 2.1 (1.6-2.3) mg/dL Total Bilirubin 0.3 (0.2-1.3) mg/dL AST 28 (14-36) U/L ALT 20 (4-34) U/L Alkaline Phosphatase 107 (38-126) U/L Troponin I (0.000-0.034) ng/mL NT-Pro-B Natriuret Pep pg/mL Total Protein 6.2 L (6.3-8.2) g/dL Albumin 3.5 (3.5-5.0) g/dL Lipase 105 (23-300) U/L Influenza Type A (PCR) (Not Detectd) Influenza Type B (PCR) (Not Detectd) RSV (PCR) (Not Detectd) SARS-CoV-2 (PCR) (Not Detectd) 11/01/20 11/01/20 11/01/20 Range/Units 16:51 16:51 16:51 WBC (3.8-10.6) k/uL RBC (3.80-5.40) m/uL Hgb (11.4-16.0) gm/dL Hct (34.0-46.0) % MCV (80.0-100.0) fL MCH (25.0-35.0) pg MCHC (31.0-37.0) g/dL RDW (11.5-15.5) % Plt Count (150-450) k/uL MPV Neutrophils % % Lymphocytes % % Monocytes % % Eosinophils % % Basophils % % Neutrophils # (1.3-7.7) k/uL Lymphocytes # (1.0-4.8) k/uL Monocytes # (0-1.0) k/uL Eosinophils # (0-0.7) k/uL Basophils # (0-0.2) k/uL Hypochromasia Anisocytosis PT (9.0-12.0) sec INR (<1.2) APTT (22.0-30.0) sec Sodium (137-145) mmol/L Potassium (3.5-5.1) mmol/L Chloride (98-107) mmol/L Carbon Dioxide (22-30) mmol/L Anion Gap mmol/L BUN (7-17) mg/dL Creatinine (0.52-1.04) mg/dL Est GFR (CKD-EPI)AfAm (>60 ml/min/1.73 sqM) Est GFR (CKD-EPI)NonAf (>60 ml/min/1.73 sqM) Glucose (74-99) mg/dL Calcium (8.4-10.2) mg/dL Magnesium (1.6-2.3) mg/dL Total Bilirubin (0.2-1.3) mg/dL AST (14-36) U/L ALT (4-34) U/L Alkaline Phosphatase (38-126) U/L Troponin I <0.012 (0.000-0.034) ng/mL NT-Pro-B Natriuret Pep 421 pg/mL Total Protein (6.3-8.2) g/dL Albumin (3.5-5.0) g/dL Lipase (23-300) U/L Influenza Type A (PCR) Not Detected (Not Detectd) Influenza Type B (PCR) Not Detected (Not Detectd) RSV (PCR) Not Detected (Not Detectd) SARS-CoV-2 (PCR) Not Detected (Not Detectd) - EKG Data -: EKG Interpreted by Me EKG Comments: 12-lead Electrocardiogram Interpretation Note EKG was reviewed and interpreted by myself. 12-lead ECG performed at 1628 is interpreted by me as revealing normal sinus rhythm at a rate of 104 beats per minute. [place] is normal. HI interval is approximately 60-80 ms but is difficult to evaluate as the patient does appear to have possibly a mild junctional rhythm. QRS duration is 92 ms, QTc is 454 seconds.. There were no ST or T wave abnormalities to suggest myocardial ischemia or injury. R wave progression across the precordium was satisfactory. By my interpretation this EKG is non- diagnostic for acute ischemia. Patient does have what appears to be a new or mild junctional rhythm or to prior EKGs which per minute in sinus rhythm. Disposition Clinical Impression: Asthma exacerbation, Chronic respiratory failure with hypoxia, On supplemental oxygen by nasal cannula, Debility, Urinary retention, Bennett catheter in place, Urinary tract infection Disposition: ADMITTED IP TO THIS HOSP Condition: Fair
[2020-11-01] MEDS: MAGNESIUM SULFATE-D5W PMX 1 GM in DEXTROSE/WATER 1 100ML.BAG IVPB SCH ×2 (16:55→18:48)
[2020-11-01 16:56] LABS: Anisocytosis Slight; Basophils % (A) 0 %; Eosinophils # (A) 0.7 k/uL (0-0.7); Eosinophils % (A) 6 %; HCT 30.4 % (34.0-46.0); HGB 9.5 gm/dL (11.4-16.0); Hypochromasia Moderate; Lymphocytes # (A) 1.1 k/uL (1.0-4.8); Lymphocytes % (A) 9 %; MCH 29.1 pg (25.0-35.0); MCHC 31.1 g/dL (31.0-37.0); MCV 93.5 fL (80.0-100.0); Mean Platelet Volume 7.3; Monocytes # (A) 0.3 k/uL (0-1.0); Monocytes % (A) 2 %; Neutrophils # (A) 9.4 k/uL (1.3-7.7); Neutrophils % (A) 81 %; Platelet Count 208 k/uL (150-450); RBC 3.26 m/uL (3.80-5.40); RDW 16.3 % (11.5-15.5); WBC 11.6 k/uL (3.8-10.6)
[2020-11-01] MEDS ORDERED: KETOROLAC 15 MG/ML 1 ML VIAL IVP STA (17:02)
[2020-11-01 17:05] LABS: INR 0.9 (<1.2); Partial Thromboplastin Time 23.1 sec (22.0-30.0)
[2020-11-01 17:24] LABS: Albumin 3.5 g/dL (3.5-5.0); Magnesium 2.1 mg/dL (1.6-2.3); Potassium 4.6 mmol/L (3.5-5.1); Total Bilirubin 0.3 mg/dL (0.2-1.3); Total Protein 6.2 g/dL (6.3-8.2)
[2020-11-01] MEDS ORDERED: IPRATROPIUM-ALBUTEROL 3 ML NEB INHALATION STA ×3 (17:53→20:52)
--- NOTE | 2020-11-01 18:45 | CT ---
EXAMINATION TYPE: CT abdomen pelvis w con DATE OF EXAM: 11/01/2020 COMPARISON: 12/25/2018 HISTORY: Abdominal distention. CT DLP: [id number] mGycm Automated exposure control for dose reduction was used. CONTRAST: Performed with IV Contrast, patient injected with 80 mL of Isovue 300. Images obtained from the diaphragm to the floor the pelvis with IV contrast. There is some infiltrate and atelectasis at both lung bases. There is small pleural effusions. Heart appears slightly enlarged. Liver spleen stomach pancreas gallbladder appear intact. Bile ducts are not dilated. Exam is limited by the patient's size. There is no adrenal mass. Left kidney is relatively small. There is 2 cm cortical cysts in the left k idney. There is 2 cm cortical cyst anterior right kidney. There is no hydronephrosis. Ureters are not dilated. There is no retroperitoneal adenopathy. Anterior abdomen not entirely included on the exam. There is Stallings catheter in the urinary bladder. There is hysterectomy. I see no pelvic mass. There i s no inguinal hernia. There is no sign of mesenteric edema. There is no ascites or free air. There is no sign of a bowel obstruction. There is mild thoracolumbar levoscoliosis. There is multilevel moder ate spondylotic changes in the lumbar spine. There appears to be a L4-5 Second-degree spondylolisthesis. There is multilevel laminectomy defect. There is sclerosis and pins fusing posteriorly the lumbar spine at L5-S1. There is moderate thoracolumbar kyphotic deformity. Un changed. IMPRESSION: There is L4-5 spondylolisthesis without change. Thoracolumbar kyphotic deformity with compression fra cture at the thoracolumbar junction. Detail limited by the osteopenia and patient's size and multilev el vertebral body ankylotic changes. There is some infiltrate and atelectasis at the lung bases that is increased compared to old exam.
--- NOTE | 2020-11-01 18:47 | XR ---
EXAMINATION TYPE: XR chest 2V DATE OF EXAM: 11/01/2020 COMPARISON: 08/28/2018 HISTORY: Difficulty breathing TECHNIQUE: 2 views FINDINGS: Heart is enlarged. There is no heart failure. There is left jugular catheter with tip in th e right atrium. Costophrenic angles are clear. Exam is limited by patient's size. IMPRESSION: Limited exam. No acute lung disease. No heart failure. Cardiomegaly. No change.
[2020-11-01] MEDS ORDERED: NALOXONE 0.4 MG/ML 1 ML VIAL IV PRN (21:57)
[2020-11-01] MEDS ORDERED: KETOROLAC 15 MG/ML 1 ML VIAL IVP PRN (21:57)
[2020-11-01] MEDS ORDERED: BUDESONIDE 1 MG/2 ML NEBU INHALATION PRN (22:00)
[2020-11-01] MEDS ORDERED: FLUCONAZOLE 100 MG TAB PO ONE (22:00)
[2020-11-01] MEDS ORDERED: IPRATROPIUM-ALBUTEROL 3 ML NEB INHALATION PRN ×2 (22:00→23:49)
[2020-11-01] MEDS ORDERED: IPRATROPIUM-ALBUTEROL 3 ML NEB INHALATION SCH (22:00)
[2020-11-01] MEDS: hydrALAZINE HCL 25 MG TAB PO SCH (22:18)
[2020-11-01] MEDS ORDERED: ACETAMINOPHEN TAB 325 MG TAB PO PRN (22:30)
[2020-11-02 02:09] LABS: Appearance,Urine Cloudy (Clear); Bacteria,Urine Rare /hpf; Bilirubin,Urine Negative (Negative); Blood,Urine Small (Negative); Color,Urine Yellow; Glucose,Urine (UA) Negative (Negative); Ketones,Urine Negative (Negative); Leukocyte Esterase,Urine Moderate (Negative); Mucus,Urine Rare /hpf; Nitrite,Urine Negative (Negative); PH, Urine 5.5 (5.0-8.0); Protein,Urine 1+ (Negative); RBC,Urine 13 /hpf (0-5); Specific Gravity,Urine 1.023 (1.001-1.035); Squamous Epithelial Cell,Urine 1 /hpf (0-4); Urobilinogen,Urine <2.0 mg/dL (<2.0); WBC,Urine 11 /hpf (0-5)
--- NOTE | 2020-11-02 02:14 | P.HPIM ---
History of Present Illness H&P Date: 11/01/20 Chief Complaint: Difficulty in breathing 70-year-old female with multiple comorbidities has obstructive sleep apnea, asthma/COPD with chronic hypoxic respiratory failure supplemental oxygen, paraplegia with chronic Stallings catheter, diabetes mellitus Patient comes in due to worsening shortness of breath over the past couple days not improving with her home inhalers and breathing treatments patient denies any sick contact recent travel she denies any fevers chills denies any coughing denies any chest pain however she does report severe shortness of breath with wheezing repeated attacks over the past few days not improving completely with home breathing treatments patient later today when symptoms get worse she got seen by her visiting physician who recommended that she goes the hospital for evaluation she denies any loss of smell or taste sensation she denies any u nusual body aches. Denies any diarrhea. Patient Patient also has chronic Stallings catheter in reports that she's having some discomfort with urine leaking from around the Stallings catheter she gets it rep laced every couple weeks and was replaced about a week ago She denies any hematuria does report some discomfort in the suprapubic region. In the ED she received some breathing treatments. At time of my evaluation she was not wheezing. Chest x-ray in the ED did not show any evidence of acute CHF or pneumonia Review of Systems Pertinent positives as noted in HPI. All other systems were reviewed and are negative Past Medical History Past Medical History: Asthma, COPD, Diabetes Mellitus, Fibromyalgia, GERD/Reflux, Hyperlipidemia, Hypertension, Osteoarthritis (OA), Pneumonia, Sleep Apnea/CPAP/BIPAP Additional Past Medical History / Comment(s): IDC, FREQ UTI. anemia; osteopenia; parapalegic "R/T SPINAL SURG 2006, AND AMBULANCE INJURY LATER", obstructive sleep apnea, chronic Stallings catheter, shingles History of Any Multi-Drug Resistant Organisms: ESBL Date of last positivie culture/infection: 04/17/18 MDRO Source:: Urine ESBL Past Surgical History: Adenoidectomy, Back Surgery, Joint Replacement, Orthopedic Surgery, Tonsillectomy Additional Past Surgical History / Comment(s): Neck surgery, ZAY KNEE REPLACEMENT, FUSION T-12 TO L-5 METAL REMOVED, L5 TO S1 - AND REFUSED,KNEE ARTHROSCOPY X3. RT FOOT METATRSAL BROKEN, BIOPSY ON ZAY BREAST-NEG, ZAY CARPAL TUNNEL, LT HAND BASAL. ARTHROSOCPY,UMBILICAL HERNIA, SANTANA 09/2012; LAPROSCOPY, B CATARACTS. Santana removed Past Anesthesia/Blood Transfusion Reactions: Family History of Problems w/ Ane sthesia, Postoperative Nausea & Vomiting (PONV) Additional Past Anesthesia/Blood Transfusion Reaction / Comment(s): HAD BLOOD TRANSFUSION IN PAST. SISTER HAD PROB BREATHING AFTER SURG. Past Psychological History: Depression Smoking Status: Never smoker Past Alcohol Use History: None Reported Past Drug Use History: None Reported - Past Family History Father Family Medical History: Cancer Additional Family Medical History / Comment(s): LUNG CA - BOTH PARENTS Mother Family Medical History: Cancer Medications and Allergies Home Medications Medication Instructions Recorded Confirmed Type Ascorbic Acid [Vitamin C] 500 mg PO BID 10/22/13 11/01/20 History Aspirin 81 mg PO HS 10/22/13 11/01/20 History Baclofen [Lioresal] 10 mg PO BID 10/22/13 11/01/20 History Furosemide [Lasix] 80 mg PO DAILY 10/22/13 11/01/20 History Montelukast Sodium [Singulair] 10 mg PO HS 10/22/13 11/01/20 History Omeprazole [PriLOSEC] 20 mg PO HS 05/16/17 11/01/20 History Ipratropium-Albuterol Nebulize 3 ml INHALATION RT-QID PRN 04/10/18 11/01/20 History [Duoneb 0.5 mg-3 mg/3 ml Soln] Pravastatin Sodium [Pravachol] 20 mg PO HS 04/10/18 11/01/20 History Celecoxib [CeleBREX] 200 mg PO DAILY 08/22/18 11/01/20 History Cetirizine HCl [Zyrtec] 10 mg PO DAILY 08/22/18 11/01/20 History Cholecalciferol (Vitamin D3) 4,000 unit PO DAILY 08/22/18 11/01/20 History [Vitamin D3] Insulin Glargine [Lantus] 38 unit SQ HS 08/22/18 11/01/20 History metFORMIN HCL [Glucophage] 500 mg PO BID 08/22/18 11/01/20 History Acetaminophen Tab [Tylenol] 325 mg PO Q6H PRN 11/01/20 11/01/20 History Amoxicillin/Potassium Clav 1 tab PO Q12HR 11/01/20 11/01/20 History [Augmentin 875-125 Tablet] Budesonide [Pulmicort] 1 mg INHALATION RT-Q6H PRN 11/01/20 11/01/20 History Budesonide/Formoterol Fumarate 2 puff INHALATION RT-BID PRN 11/01/20 11/01/20 History [Symbicort 160-4.5 Mcg Inhaler] Citalopram Hydrobromide [CeleXA] 20 mg PO DAILY 11/01/20 11/01/20 History Cranberry Fruit Concentrate [Azo 1,000 mg PO DAILY 11/01/20 11/01/20 History Cranberry] Elderberry Fruit and Flower [Black 1 cap PO DAILY 11/01/20 11/01/20 History Elderberry 575 mg Cap] Furosemide [Lasix] 40 mg PO HS PRN 11/01/20 11/01/20 History Gabapentin [Neurontin] 100 mg PO HS 11/01/20 11/01/20 History Insulin Aspart [NovoLOG Flexpen] See Protocol SQ AC-TID PRN 11/01/20 11/01/20 History Methenamine Hippurate 1 gm PO BID 11/01/20 11/01/20 History Multivitamins, Thera [Multivitamin 1 tab PO DAILY 11/01/20 11/01/20 History (formulary)] Nitroglycerin Sl Tabs [Nitrostat] 0.4 mg SUBLINGUAL Q5M PRN 11/01/20 11/01/20 History Sennosides-Docusate Sodium 3 tab PO BID 11/01/20 11/01/20 History [Senokot-S] Slow Release Iron 45mg 45 mg PO BID 11/01/20 11/01/20 History Zinc 50 mg PO DAILY 11/01/20 11/01/20 History allopurinoL [Zyloprim] 100 mg PO BID 11/01/20 11/01/20 History hydrALAZINE HCL [Apresoline] 25 mg PO TID 11/01/20 11/01/20 History Allergies Allergy/AdvReac Type Severity Reaction Status Date / Time acyclovir Allergy Rash/Hives Verified 08/22/18 08:03 ampicillin [From Unasyn] Allergy Dyspnea Verified 08/22/18 08:03 cephalexin [Cephalexin] Allergy Rash/Hives Verified 08/22/18 08:03 cephalexin monohydrate Allergy Rash/Hives Verified 08/22/18 08:03 [From Keflex] Cephalosporins Allergy Unknown Verified 08/22/18 08:03 erythromycin base Allergy Unknown Verified 08/22/18 08:03 famciclovir Allergy Rash/Hives Verified 08/22/18 08:03 meropenem [From Merrem] Allergy Anaphylaxis Verified 08/22/18 08:03 nitrofurantoin Allergy Unknown Verified 08/22/18 08:03 [From Macrobid] nitrofurantoin Allergy Unknown Verified 08/22/18 08:03 macrocrystalline [From Macrobid] sulbactam [From Unasyn] Allergy Dyspnea Verified 08/22/18 08:03 sulfamethoxazole Allergy Unknown Verified 08/22/18 08:03 [From Bactrim] trimethoprim [From Bactrim] Allergy Unknown Verified 08/22/18 08:03 Physical Exam Vitals: Vital Signs Temp Pulse Resp BP Pulse Ox 11/01/20 22:59 92 11/01/20 22:47 91 11/01/20 22:20 96 22 109/87 95 11/01/20 20:08 93 11/01/20 19:58 90 11/01/20 18:42 94 18 11/01/20 18:33 94 20 11/01/20 16:34 102 H 20 155/60 100 11/01/20 16:27 98.4 F 105 H 20 100 Intake and Output 11/01/20 11/01/20 11/02/20 14:59 22:59 06:59 Output Total 10 Balance -10 Output: Urine 10 Uretheral (Stallings) 10 Other: Weight 158.757 kg Constitutional: No acute distress, conversant, pleasant, on morley pplemental oxygen through nasal cannula, morbidly obese Eyes: Anicteric sclerae, moist conjunctiva, Pupils equal round reactive to light ENMT: NC/AT Oropharynx clear, no erythema, or exudates Neck: Supple, FROM, no masses, or JVD No carotid bruits No thyromegaly Lungs: Good breath sounds throughout prolonged expiratory phase Clear to percussion Normal respiratory effort, no accessory muscle use Cardiovascular: Heart regular in rate and rhythm, No murmurs, gallops, or rubs No peripheral edema Abdominal: Soft, Stallings catheter in placed no gross hematuria Nontender, no guarding, rebound or rigidity Abdomen moving with respiration Normoactive bowel sounds No hepatomegaly, No splenomegaly No palpable mass No abdominal wall hernia noted Skin: Normal temperature, tone, texture, turgor Patient reported pressure ulcer over her bottom but due to body habitus and her weight and discomfort from chronic body aches I could not examine this today was deferred for which she gets transferred to the hospital bed will reevaluate with nursing staff and take pictures Extremities: No digital cyanosis No clubbing Pedal pulses intact and symmetrical Radial pulses intact and symmetrical No calf tenderness Psychiatric: Alert and oriented to person, place and time Appropriate affect fair judgement Neuro Muscles Strength 5/5 over bilateral upper extremities, patient is paraplegic Sensation to light touch grossly present throughout Cranial nerves II-XII grossly intact No focal sensory deficits Lymphatics: no palpable cervical or supraclavicular , or inguinal lymph nodes Results CBC & Chem 7: 11/01/20 16:51 11/01/20 16:51 Labs: Abnormal Lab Results - Last 24 Hours (Table) 11/01/20 11/01/20 11/01/20 Range/Units 16:51 16:51 Unknown WBC 11.6 H (3.8-10.6) k/uL RBC 3.26 L (3.80-5.40) m/uL Hgb 9.5 L (11.4-16.0) gm/dL Hct 30.4 L (34.0-46.0) % RDW 16.3 H (11.5-15.5) % Neutrophils # 9.4 H (1.3-7.7) k/uL Carbon Dioxide 32 H (22-30) mmol/L BUN 40 H (7-17) mg/dL Glucose 204 H (74-99) mg/dL Total Protein 6.2 L (6.3-8.2) g/dL Urine Protein Trace H (Negative) Urine Blood Trace H (Negative) Ur Leukocyte Esterase Small H (Negative) Urine RBC 6 H (0-5) /hpf Urine WBC 6 H (0-5) /hpf Urine Bacteria Rare H (None) /hpf Hyaline Casts 4 H (0-2) /lpf Urine Yeast (Budding) Occasional H (None) /hpf Assessment and Plan Assessment: Acute asthma/COPD exacerbation Acute hypoxic on chronic hypoxic respiratory failure Plan Systemic by mouth steroids Breathing treatments around the clock Chest x-ray no evidence of CHF or acute pneumonia Supportive care resume inhalers Encourage patient to avoid smoke exposure Covid and influenza testing negative Chronic conditions Chronic anemia stable Diabetes mellitus Fibromyalgia Hypertension Hyperlipidemia Resume Levemir, insulin sliding scale Hold oral hypoglycemic agents Resume home medications Chronic Stallings catheter due to history of paraplegia, present on admission Patient complaining of urine leaking from around the catheter discomfort in the suprapubic region Follow-up urine cultures, Patient received 1 dose of antifungal fluconazole in the ED. We'll not continue this at this time patient has chronic Stallings catheter and it will be colonization with YEAST follow-up with urine cultures Replace Stallings catheter and Stallings catheter care Patient reported decubitus ulcer present on admission Patient is full code Heparin subcu 3 times a day for DVT prophylaxis Discussed with: Patient, ER, RN Anticipated length of stay more than [address]: Home A total of 75 minutes was spent on the care of this complex patient more than 50% of the time was spent in counseling and care coordination.
[2020-11-02 07:42] LABS: Glucose,Whole Blood 215 mg/dL (75-99)
[2020-11-02] MEDS: IPRATROPIUM-ALBUTEROL 3 ML NEB INHALATION PRN ×2 (07:49→11:24)
[2020-11-02] MEDS ORDERED: IPRATROPIUM-ALBUTEROL 3 ML NEB INHALATION SCH (08:00)
[2020-11-02] MEDS ORDERED: SYMBICORT 160-4.5 MCG INHALER INHALATION PRN (08:00)
[2020-11-02] MEDS: hydrALAZINE HCL 25 MG TAB PO SCH ×3 (08:12→21:59)
[2020-11-02] MEDS: MULTIVITAMINS, THERA 1 EACH TAB PO SCH (08:12)
[2020-11-02] MEDS: allopurinoL 100 MG TAB PO SCH ×2 (08:12→21:59)
[2020-11-02] MEDS: CITALOPRAM HYDROBROMIDE 20 MG TAB PO SCH (08:12)
[2020-11-02] MEDS: LORATADINE 10 MG TAB PO SCH (08:13)
[2020-11-02] MEDS: predniSONE 50 MG TAB PO SCH (08:13)
[2020-11-02] MEDS: MELOXICAM 7.5 MG TAB PO SCH (08:13)
[2020-11-02] MEDS: FUROSEMIDE 40 MG TAB PO SCH (08:13)
[2020-11-02] MEDS: BACLOFEN 10 MG TAB PO SCH ×2 (08:13→21:59)
[2020-11-02] MEDS: SENNOSIDES-DOCUSATE SODIUM 1 EACH TAB PO SCH ×3 (08:14→21:59)
[2020-11-02] MEDS: INSULIN ASPART (NovoLOG) 100 UNIT/ML VIAL SQ SCH ×4 (08:15→21:59)
[2020-11-02] MEDS: INSULIN DETEMIR (LEVEMIR) 100 UNIT/ML SYR SQ SCH (08:15)
[2020-11-02] MEDS: HEPARIN SODIUM,PORCINE/PF 5,000 UNIT/0.5 ML SYRINGE SQ SCH ×3 (08:16→23:39)
[2020-11-02] MEDS ORDERED: metFORMIN 500 MG TAB PO SCH (09:00)
[2020-11-02] MEDS ORDERED: AMOXIC-POT CLAV 875-125MG 1 EACH TAB PO SCH (09:00)
[2020-11-02] MEDS ORDERED: NITROGLYCERIN SL TABS 0.4 MG TAB SUBLINGUAL PRN (12:59)
--- NOTE | 2020-11-02 13:02 | P.PN ---
Progress Note - Text Progress Note Date: 11/02/20 Presenting complaint: Shortness of breath Interval history: Patient admitted with acute asthma exacerbation. She follows with visiting physicians Dr. Andrade. Chronic stable medical conditions include diabetes mellitus type 2, fibromyalgia, hyperlipidemia, hypertension, osteomyelitis, obesity, bilateral paraplegia from a spinal injury 2006, urinary stress incontinence, obstructive sleep apnea uses a BiPAP. At her baseline since on a chair. Lives with her daughter. November 02: Sitting upon a bit. Some shortness of breath. Some wheezing. Oral intake is fair. No fever no chills. Decreased appetite. Review of systems: Was done for constitutional, cardiovascular, GI, pulmonary. relevant finding as above On examination: VITAL SIGNS: Afebrile, 88, 17, 158/78, 96% on 4 L GENERAL APPEARANCE: BMI 66.1, sitting up in bed, slightly short of breath HEENT: Normal external appearance of nose and ear. Oral cavity normal EYES: Pupils equal. Conjunctiva normal. NECK: JVD unable to assess. Mass not palpable. RESPIRATORY: Respiratory effort increased. Decreased breath sounds. CARDIOVASCULAR: First and second sounds normal. No edema. ABDOMEN: Soft. Liver and spleen not palpable. No tenderness. No mass palpable. PSYCHIATRY: Alert and oriented x3. Mood and affect normal. INVESTIGATIONS, reviewed in the clinical context: WBC 11.60 globin 9.5 platelets 208 potassium 4.6 BUN 40 creatinine 1.0 Troponin I less than 0.012, proBNP 421 UA positive for leukoesterase, WBC Influenza type A, diabetes, RSV, COVID 19: Not detected EKG tracing personally reviewed by me-sinus rhythm Chest x-ray film: No obvious infiltrate CT abdomen pelvis with contrast: Multilevel moderate spondylitic changes in the lumbar spine. Thoracolumbar 40 deformity with compression fracture of the thoracolumbar junction. Osteopenia. Assessment and plan: -Acute exacerbation of moderate persistent asthma, slow to respond DuoNeb 4 times a day plus when necessary, inhaled corticosteroid, inhaled long- acting beta agonist -Chronic hypoxic respiratory failure from asthma On home oxygen -Diabetes mellitus type 2, chronic on insulin Follow Accu-Cheks -Chronic fibromyalgia Pain medications as needed -Hyperlipidemia Pravachol -Essential hypertension Hydralazine, -Primary osteoarthritis Pain medications as needed -Morbid obesity BMI 66 Weight loss measures -Chronic bilateral polyplegia from spinal injury 2006 -Chronic urinary stress incontinence Dependence -Obstructive sleep apnea Uses BiPAP Care was discussed with the patient. Questions answered. Continue with bronchodilators steroids. High dose oral prednisone added. Follow
[2020-11-02] MEDS: BUDESONIDE 1 MG/2 ML NEBU INHALATION SCH ×2 (13:51→19:30)
[2020-11-02] MEDS: FORMOTEROL FUMARATE 20 MCG/2 ML NEBU INHALATION SCH ×2 (13:52→19:30)
[2020-11-02] MEDS: IPRATROPIUM-ALBUTEROL 3 ML NEB INHALATION SCH ×3 (13:52→19:30)
[2020-11-02 15:01] LABS: Glucose,Whole Blood 319 mg/dL (75-99)
[2020-11-02 17:08] LABS: Glucose,Whole Blood 252 mg/dL (75-99)
[2020-11-02 20:36] LABS: Glucose,Whole Blood 184 mg/dL (75-99)
[2020-11-02] MEDS ORDERED: FUROSEMIDE 40 MG TAB PO PRN (21:00)
[2020-11-02] MEDS: METHENAMINE HIPPURATE 1 GM PO SCH (21:57)
[2020-11-02] MEDS: MONTELUKAST 10 MG TAB PO SCH (21:59)
[2020-11-02] MEDS: ASCORBIC ACID 500 MG TAB PO SCH (21:59)
[2020-11-02] MEDS: GABAPENTIN 100 MG CAP PO SCH (21:59)
[2020-11-02] MEDS: ASPIRIN 81 MG PO SCH (21:59)
[2020-11-02] MEDS: PRAVASTATIN SODIUM 20 MG TAB PO SCH (21:59)
[2020-11-02] MEDS: PANTOPRAZOLE 40 MG TABLET PO SCH (22:39)
[2020-11-03 07:18] LABS: Glucose,Whole Blood 135 mg/dL (75-99)
[2020-11-03] MEDS: BUDESONIDE 1 MG/2 ML NEBU INHALATION SCH ×2 (08:30→20:10)
[2020-11-03] MEDS: IPRATROPIUM-ALBUTEROL 3 ML NEB INHALATION SCH ×4 (08:30→20:10)
[2020-11-03] MEDS: FORMOTEROL FUMARATE 20 MCG/2 ML NEBU INHALATION SCH ×2 (08:30→20:10)
[2020-11-03] MEDS: INSULIN ASPART (NovoLOG) 100 UNIT/ML VIAL SQ SCH ×4 (08:53→21:57)
[2020-11-03] MEDS: HEPARIN SODIUM,PORCINE/PF 5,000 UNIT/0.5 ML SYRINGE SQ SCH ×3 (08:54→23:38)
[2020-11-03] MEDS: MELOXICAM 7.5 MG TAB PO SCH (08:55)
[2020-11-03] MEDS: predniSONE 50 MG TAB PO SCH (08:55)
[2020-11-03] MEDS: ASCORBIC ACID 500 MG TAB PO SCH ×2 (08:56→20:40)
[2020-11-03] MEDS: FUROSEMIDE 40 MG TAB PO SCH (08:56)
[2020-11-03] MEDS: CHOLECALCIFEROL 25 MCG (1000 IU) TABLET PO SCH (08:56)
[2020-11-03] MEDS: allopurinoL 100 MG TAB PO SCH ×2 (08:56→20:40)
[2020-11-03] MEDS: LORATADINE 10 MG TAB PO SCH (08:56)
[2020-11-03] MEDS: hydrALAZINE HCL 25 MG TAB PO SCH ×3 (08:56→20:40)
[2020-11-03] MEDS: CITALOPRAM HYDROBROMIDE 20 MG TAB PO SCH (08:56)
[2020-11-03] MEDS: BACLOFEN 10 MG TAB PO SCH ×2 (08:56→20:40)
[2020-11-03] MEDS: MULTIVITAMINS, THERA 1 EACH TAB PO SCH (08:56)
[2020-11-03] MEDS ORDERED: NON FORMULARY DRUG (Cranberry Fruit Concentrate [Azo Cranberry] 250 MG Tab.Chew) PO SCH (09:00)
[2020-11-03] MEDS: INSULIN DETEMIR (LEVEMIR) 100 UNIT/ML SYR SQ SCH (09:07)
[2020-11-03] MEDS: METHENAMINE HIPPURATE 1 GM PO SCH ×2 (09:23→20:45)
--- NOTE | 2020-11-03 10:25 | P.CNPUL ---
History of Present Illness Consult date: 11/03/20 Requesting physician: Dony Rodriguez Reason for consult: dyspnea, cough, asthma, hypoxemia Chief complaint: Shortness of breath, cough, wheezing. History of present illness: Pulmonary consult dated 11/03/2020. 70-year-old female with a history of asthma/COPD, with chronic hypoxemic respiratory failure, and home O2 at 3 L, as well as diabetes, obesity, fibromyalgia, GERD, hypertension, and sleep apnea. The patient states for last couple of weeks and may be a bit longer, her asthma has been acting up. The patient has received 2 Medrol Dosepaks, which seemed to help in the short-term, but are not long lasting. She denies any fever or chills. She's not coughing up any phlegm. She is using her regular medication and not skipping doses. She is on a nebulizer machine with albuterol sulfate and ipratropium bromide, Singulair 10 mg at bedtime, and Symbicort 160/4.5, 2 puffs twice a day. She denies any chest pain or chest discomfort. She denies any hemoptysis. There is no nausea or vomiting. She denies any abdominal pain. Lab data includes a white count 11.6, hemoglobin 9.5, hematocrit 30.4, and platelet count that 208,000. Sodium 141, potassium 4.6, chlorides 103, CO2 32, anion gap 6, BUN 40, and creatinine 1. Urine is suggestive of a urinary tract infection. Chest x-ra y shows no acute disease. Review of Systems REVIEW OF SYSTEMS: CONSTITUTIONAL: [Negative.] NEUROLOGIC: [ Negative.] HEENT: [ Negative.] CARDIAC: [Negative.] PULMONARY: Shortness of breath, cough, wheezing, chest tightness, without phlegm production. GI: [Negative.] : [Negative.] RHEUMATOLOGIC: [ Negative.] IMMUNOLOGIC: [ Negative.] ENDOCRINE: [Negative. ] DERMATOLOGIC: [Negative.] Past Medical History Past Medical History: Asthma, COPD, Diabetes Mellitus, Fibromyalgia, GERD/Reflux, Hyperlipidemia, Hypertension, Osteoarthritis (OA), Pneumonia, Skin Disorder, Sleep Apnea/CPAP/BIPAP Additional Past Medical History / Comment(s): IDC, FREQ UTI. anemia; osteopenia; parapalegic "R/T SPINAL SURG 2006, AND AMBULANCE INJURY LATER", obstructive sleep apnea, chronic Stallings catheter, shingles History of Any Multi-Drug Resistant Organisms: ESBL Date of last positivie culture/infection: 04/17/18 MDRO Source:: Urine ESBL Past Surgical History: Adenoidectomy, Back Surgery, Joint Replacement, Ortho pedic Surgery, Tonsillectomy Additional Past Surgical History / Comment(s): Neck surgery, ZAY KNEE REPLACEMENT, FUSION T-12 TO L-5 METAL REMOVED, L5 TO S1 - AND REFUSED,KNEE A RTHROSCOPY X3. RT FOOT METATRSAL BROKEN, BIOPSY ON ZAY BREAST-NEG, ZAY CARPAL TUNNEL, LT HAND BASAL. ARTHROSOCPY,UMBILICAL HERNIA, SANTANA 09/2012; LAPROSCOPY, B CATARACTS. Santana removed Past Anesthesia/Blood Transfusion Reactions: Family History of Problems w/ Anesthesia, Postoperative Nausea & Vomiting (PONV) Additional Past Anesthesia/Blood Transfusion Reaction / Comment(s): HAD BLOOD TRANSFUSION IN PAST. SISTER HAD PROB BREATHING AFTER SURG. Past Psychological History: Depression Additional Psychological History / Comment(s): Lives in the family home. She has a visiting physician. Has family members that help her. She is on a bariatric air bed at home. She also has Summer lift, electric wheelchair, nebulizer, BiPAP and home oxygen at 2 L nasal cannula. Greg taken out 03/26/18 @ [facility] Smoking Status: Never smoker Past Alcohol Use History: None Reported Additional Past Alcohol Use History / Comment(s): Patient lives in the family home. He is visiting physicians. Patient has family members that help her. She has a bariatric bed at home, where left, electric wheelchair, nebulizer, BiPAP and home oxygen at 2 L nasal cannula. Past Drug Use History: None Reported - Past Family History Father Family Medical History: Cancer Additional Family Medical History / Comment(s): LUNG CA - BOTH PARENTS Mother Family Medical History: Cancer Medications and Allergies Home Medications Medication Instructions Recorded Confirmed Type Ascorbic Acid [Vitamin C] 500 mg PO BID 10/22/13 11/01/20 History Aspirin 81 mg PO HS 10/22/13 11/01/20 History Baclofen [Lioresal] 10 mg PO BID 10/22/13 11/01/20 History Furosemide [Lasix] 80 mg PO DAILY 10/22/13 11/01/20 History Montelukast Sodium [Singulair] 10 mg PO HS 10/22/13 11/01/20 History Omeprazole [PriLOSEC] 20 mg PO HS 05/16/17 11/01/20 History Ipratropium-Albuterol Nebulize 3 ml INHALATION RT-QID PRN 04/10/18 11/01/20 History [Duoneb 0.5 mg-3 mg/3 ml Soln] Pravastatin Sodium [Pravachol] 20 mg PO HS 04/10/18 11/01/20 History Celecoxib [CeleBREX] 200 mg PO DAILY 08/22/18 11/01/20 History Cetirizine HCl [Zyrtec] 10 mg PO DAILY 08/22/18 11/01/20 History Cholecalciferol (Vitamin D3) 4,000 unit PO DAILY 08/22/18 11/01/20 History [Vitamin D3] Insulin Glargine [Lantus] 38 unit SQ HS 08/22/18 11/01/20 History metFORMIN HCL [Glucophage] 500 mg PO BID 08/22/18 11/01/20 History Acetaminophen Tab [Tylenol] 325 mg PO Q6H PRN 11/01/20 11/01/20 History Amoxicillin/Potassium Clav 1 tab PO Q12HR 11/01/20 11/01/20 History [Augmentin 875-125 Tablet] Budesonide [Pulmicort] 1 mg INHALATION RT-Q6H PRN 11/01/20 11/01/20 History Budesonide/Formoterol Fumarate 2 puff INHALATION RT-BID PRN 11/01/20 11/01/20 History [Symbicort 160-4.5 Mcg Inhaler] Citalopram Hydrobromide [CeleXA] 20 mg PO DAILY 11/01/20 11/01/20 History Cranberry Fruit Concentrate [Azo 1,000 mg PO DAILY 11/01/20 11/01/20 History Cranberry] Elderberry Fruit and Flower [Black 1 cap PO DAILY 11/01/20 11/01/20 History Elderberry 575 mg Cap] Furosemide [Lasix] 40 mg PO HS PRN 11/01/20 11/01/20 History Gabapentin [Neurontin] 100 mg PO HS 11/01/20 11/01/20 History Insulin Aspart [NovoLOG Flexpen] See Protocol SQ AC-TID PRN 11/01/20 11/01/20 History Methenamine Hippurate 1 gm PO BID 11/01/20 11/01/20 History Multivitamins, Thera [Multivitamin 1 tab PO DAILY 11/01/20 11/01/20 History (formulary)] Nitroglycerin Sl Tabs [Nitrostat] 0.4 mg SUBLINGUAL Q5M PRN 11/01/20 11/01/20 History Sennosides-Docusate Sodium 3 tab PO BID 11/01/20 11/01/20 History [Senokot-S] Slow Release Iron 45mg 45 mg PO BID 11/01/20 11/01/20 History Zinc 50 mg PO DAILY 11/01/20 11/01/20 History allopurinoL [Zyloprim] 100 mg PO BID 11/01/20 11/01/20 History hydrALAZINE HCL [Apresoline] 25 mg PO TID 11/01/20 11/01/20 History Allergies Allergy/AdvReac Type Severity Reaction Status Date / Time acyclovir Allergy Rash/Hives Verified 08/22/18 08:03 ampicillin [From Unasyn] Allergy Dyspnea Verified 08/22/18 08:03 cephalexin [Cephalexin] Allergy Rash/Hives Verified 08/22/18 08:03 cephalexin monohydrate Allergy Rash/Hives Verified 08/22/18 08:03 [From Keflex] Cephalosporins Allergy Unknown Verified 08/22/18 08:03 erythromycin base Allergy Unknown Verified 08/22/18 08:03 famciclovir Allergy Rash/Hives Verified 08/22/18 08:03 meropenem [From Merrem] Allergy Anaphylaxis Verified 08/22/18 08:03 nitrofurantoin Allergy Unknown Verified 08/22/18 08:03 [From Macrobid] nitrofurantoin Allergy Unknown Verified 08/22/18 08:03 macrocrystalline [From Macrobid] sulbactam [From Unasyn] Allergy Dyspnea Verified 08/22/18 08:03 sulfamethoxazole Allergy Unknown Verified 08/22/18 08:03 [From Bactrim] trimethoprim [From Bactrim] Allergy Unknown Verified 08/22/18 08:03 Physical Exam Osteopathic Statement: *. No significant issues noted on an osteopathic structural exam other than those noted in the History and Physical/Consult. Vitals: Vital Signs Temp Pulse Pulse Pulse Resp BP Pulse Ox 11/03/20 08:53 86 11/03/20 08:42 88 11/03/20 08:41 88 11/03/20 08:30 88 11/03/20 07:00 97.7 F 73 18 172/69 96 11/03/20 02:00 18 11/03/20 00:35 98.4 F 84 18 145/74 96 11/02/20 20:00 98 18 11/02/20 19:54 97 11/02/20 19:44 94 11/02/20 19:31 94 11/02/20 18:51 98.3 F 98 18 148/64 97 11/02/20 16:25 90 11/02/20 16:14 92 11/02/20 14:40 98.0 F 97 16 169/73 93 L 11/02/20 12:35 98.0 F 91 17 119/71 97 11/02/20 11:36 93 11/02/20 11:25 89 Intake and Output 11/02/20 11/03/20 11/03/20 22:59 06:59 14:59 Output Total 650 800 Balance -650 -800 Output: Urine 650 800 Other: Voiding Method Indwelling Catheter Indwelling Catheter No acute distress, oriented 3. No audible wheezing, conversational dyspnea, or use of accessory muscles. Currently on nasal O2. HEENT examination is grossly unremarkable. Neck supple. Full range of motion. No adenopathy thyromegaly or neck vein distention. Cardiovascular examination reveals regular rhythm rate. S1-S2 normal. No S3 or S4. No discernible murmur noted. Heart sounds are distant. Heart rate 86 bpm. Lungs reveal mild to moderate scattered rhonchi and wheezes. Slight prolongation on forced maneuver. There are no crackles. Abdomen soft bowel sounds are heard. No masses or tenderness. Extremities are intact. No cyanosis clubbing or edema. Skin is without rash or lesion. Neurologic examination is brief but nonfocal. Results - Laboratory Findings CBC and BMP: 11/01/20 16:51 11/01/20 16:51 PT/INR, D-dimer PT 10.0 sec (9.0-12.0) 11/01/20 16:51 INR 0.9 (<1.2) 11/01/20 16:51 Abnormal lab findings: Abnormal Labs 11/01/20 11/01/20 11/01/20 16:51 16:51 Unknown WBC 11.6 H RBC 3.26 L Hgb 9.5 L Hct 30.4 L RDW 16.3 H Neutrophils # 9.4 H Carbon Dioxide 32 H BUN 40 H Glucose 204 H POC Glucose (mg/dL) Total Protein 6.2 L Urine Appearance Urine Protein Trace H Urine Blood Trace H Ur Leukocyte Esterase Small H Urine RBC 6 H Urine WBC 6 H Urine Bacteria Rare H Hyaline Casts 4 H Urine Mucus Urine Yeast (Budding) Occasional H 11/02/20 11/02/20 11/02/20 01:15 07:39 15:00 WBC RBC Hgb Hct RDW Neutrophils # Carbon Dioxide BUN Glucose POC Glucose (mg/dL) 215 H 319 H Total Protein Urine Appearance Cloudy H Urine Protein 1+ H Urine Blood Small H Ur Leukocyte Esterase Moderate H Urine RBC 13 H Urine WBC 11 H Urine Bacteria Rare H Hyaline Casts Urine Mucus Rare H Urine Yeast (Budding) 11/02/20 11/02/20 11/03/20 17:07 20:34 07:17 WBC RBC Hgb Hct RDW Neutrophils # Carbon Dioxide BUN Glucose POC Glucose (mg/dL) 252 H 184 H 135 H Total Protein Urine Appearance Urine Protein Urine Blood Ur Leukocyte Esterase Urine RBC Urine WBC Urine Bacteria Hyaline Casts Urine Mucus Urine Yeast (Budding) - Diagnostic Findings Chest x-ray: image reviewed Assessment and Plan Assessment: Acute exacerbation of chronic bronchial asthma. Rule out acute cystitis. History of diabetes mellitus. Morbid obesity. History of fibromyalgia. Gastroesophageal reflux disease. Hyperlipidemia. Hypertension. Osteoarthritis. History of sleep apnea syndrome, maintained on CPAP. Prior history of urinary tract infections with extended spectrum beta lactamase producing organisms. Plan: Plan dated 11/03/2020. The patient will be treated in standard fashion. She'll get Solu-Medrol, updrafts, and her usual asthma medications. In addition, I told her that when she is discharged, we likely will send her home on a small dose of daily prednisone indefinitely. This may prevent these asthma flareups. She'll follow with me in the office. No additional recommendations are made. She appears not to have an infection. Probably will not benefit from antibiotics at this time. Time with Patient: Greater than 30
--- NOTE | 2020-11-03 10:37 | P.CONS ---
History of Present Illness - Reason for Consult Consult date: 11/03/20 wound care - History of Present Illness this is a 70-year-old female being seen by the wound care center for excoriation to the bilateral lower extremities posterior aspect. Patient has history of paraplegia. Patient states that the area will open up and closed every so often. She has used multiple products including zinc barrier cream, Vaseline, Balmex. Patient states that the area is worse during the summer when they're received. Upon examination. Patient was found to have excoriation significantly to the right lower extremity posterior aspect. No open ulcerations were noted. Minimal excoriation to the left lower extremity. Patient sacral area has no excoriation or maceration noted. Review Of Systems: Constitutional: No fever, no chills, no night sweats. No weight change. No weakness, fatigue or lethargy. No daytime sleepiness. Integumentary:reports wounds, no lesions. No rash or pruritus. No unusual bruising. No change in hair or nails. Physical exam: General Appearance: Alert, cooperative, no distress, appears stated age. Skin: See HPI all other Skin color, texture, tugor normal, no rashes or lesions. Neurologic: Alert oriented x3 Assessment: 1. Excoriation 2. Paraplegia Plan: 1. Apply triad to the site daily. May use and to dry absorbent pads to help with moisture control. Thank you for the consultation any questions please contact the wound care center DNP note has been reviewed and discussed with Dr. Dee and the impression and plan of care has been directed as dictated. Past Medical History Past Medical History: Asthma, COPD, Diabetes Mellitus, Fibromyalgia, GERD/Reflux, Hyperlipidemia, Hypertension, Osteoarthritis (OA), Pneumonia, Skin Disorder, Sleep Apnea/CPAP/BIPAP Additional Past Medical History / Comment(s): IDC, FREQ UTI. anemia; osteopenia; parapalegic "R/T SPINAL SURG 2006, AND AMBULANCE INJURY LATER", obstructive sleep apnea, chronic Stallings catheter, shingles History of Any Multi-Drug Resistant Organisms: ESBL Year Discovered:: 04/17/18 MDRO Source:: Urine ESBL Past Surgical History: Adenoidectomy, Back Surgery, Joint Replacement, Orthopedic Surgery, Tonsillectomy Additional Past Surgical History / Comment(s): Neck surgery, ZAY KNEE REPLACEMENT, FUSION T-12 TO L-5 METAL REMOVED, L5 TO S1 - AND REFUSED,KNEE ARTHROSCOPY X3. RT FOOT METATRSAL BROKEN, BIOPSY ON ZAY BREAST-NEG, ZAY CARPAL TUNNEL, LT HAND BASAL. ARTHROSOCPY,UMBILICAL HERNIA, SANTANA 09/2012; LAPROSCOPY, B CATARACTS. Santana removed Past Anesthesia/Blood Transfusion Reactions: Family History of Problems w/ Anesthesia, Postoperative Nausea & Vomiting (PONV) Additional Past Anesthesia/Blood Transfusion Reaction / Comm: HAD BLOOD TRANSFUSION IN PAST. SISTER HAD PROB BREATHING AFTER SURG. Past Psychological History: Depression Additional Psychological History / Comment(s): Lives in the family home. She has a visiting physician. Has family members that help her. She is on a bariatric air bed at home. She also has Summer lift, electric wheelchair, nebulizer, BiPAP and home oxygen at 2 L nasal cannula. Greg taken out 03/26/18 @ [facility] Smoking Status: Never smoker Past Alcohol Use History: None Reported Additional Past Alcohol Use History / Comment(s): Patient lives in the family home. He is visiting physicians. Patient has family members that help her. She has a bariatric bed at home, where left, electric wheelchair, nebulizer, BiPAP and home oxygen at 2 L nasal cannula. Past Drug Use History: None Reported - Past Family History Father Family Medical History: Cancer Additional Family Medical History / Comment(s): LUNG CA - BOTH PARENTS Mother Family Medical History: Cancer Medications and Allergies Home Medications Medication Instructions Recorded Confirmed Type Ascorbic Acid [Vitamin C] 500 mg PO BID 10/22/13 11/01/20 History Aspirin 81 mg PO HS 10/22/13 11/01/20 History Baclofen [Lioresal] 10 mg PO BID 10/22/13 11/01/20 History Furosemide [Lasix] 80 mg PO DAILY 10/22/13 11/01/20 History Montelukast Sodium [Singulair] 10 mg PO HS 10/22/13 11/01/20 History Omeprazole [PriLOSEC] 20 mg PO HS 05/16/17 11/01/20 History Ipratropium-Albuterol Nebulize 3 ml INHALATION RT-QID PRN 04/10/18 11/01/20 History [Duoneb 0.5 mg-3 mg/3 ml Soln] Pravastatin Sodium [Pravachol] 20 mg PO HS 04/10/18 11/01/20 History Celecoxib [CeleBREX] 200 mg PO DAILY 08/22/18 11/01/20 History Cetirizine HCl [Zyrtec] 10 mg PO DAILY 08/22/18 11/01/20 History Cholecalciferol (Vitamin D3) 4,000 unit PO DAILY 08/22/18 11/01/20 History [Vitamin D3] Insulin Glargine [Lantus] 38 unit SQ HS 08/22/18 11/01/20 History metFORMIN HCL [Glucophage] 500 mg PO BID 08/22/18 11/01/20 History Acetaminophen Tab [Tylenol] 325 mg PO Q6H PRN 11/01/20 11/01/20 History Amoxicillin/Potassium Clav 1 tab PO Q12HR 11/01/20 11/01/20 History [Augmentin 875-125 Tablet] Budesonide [Pulmicort] 1 mg INHALATION RT-Q6H PRN 11/01/20 11/01/20 History Budesonide/Formoterol Fumarate 2 puff INHALATION RT-BID PRN 11/01/20 11/01/20 History [Symbicort 160-4.5 Mcg Inhaler] Citalopram Hydrobromide [CeleXA] 20 mg PO DAILY 11/01/20 11/01/20 History Cranberry Fruit Concentrate [Azo 1,000 mg PO DAILY 11/01/20 11/01/20 History Cranberry] Elderberry Fruit and Flower [Black 1 cap PO DAILY 11/01/20 11/01/20 History Elderberry 575 mg Cap] Furosemide [Lasix] 40 mg PO HS PRN 11/01/20 11/01/20 History Gabapentin [Neurontin] 100 mg PO HS 11/01/20 11/01/20 History Insulin Aspart [NovoLOG Flexpen] See Protocol SQ AC-TID PRN 11/01/20 11/01/20 History Methenamine Hippurate 1 gm PO BID 11/01/20 11/01/20 History Multivitamins, Thera [Multivitamin 1 tab PO DAILY 11/01/20 11/01/20 History (formulary)] Nitroglycerin Sl Tabs [Nitrostat] 0.4 mg SUBLINGUAL Q5M PRN 11/01/20 11/01/20 History Sennosides-Docusate Sodium 3 tab PO BID 11/01/20 11/01/20 History [Senokot-S] Slow Release Iron 45mg 45 mg PO BID 11/01/20 11/01/20 History Zinc 50 mg PO DAILY 11/01/20 11/01/20 History allopurinoL [Zyloprim] 100 mg PO BID 11/01/20 11/01/20 History hydrALAZINE HCL [Apresoline] 25 mg PO TID 11/01/20 11/01/20 History Allergies Allergy/AdvReac Type Severity Reaction Status Date / Time acyclovir Allergy Rash/Hives Verified 08/22/18 08:03 ampicillin [From Unasyn] Allergy Dyspnea Verified 08/22/18 08:03 cephalexin [Cephalexin] Allergy Rash/Hives Verified 08/22/18 08:03 cephalexin monohydrate Allergy Rash/Hives Verified 08/22/18 08:03 [From Keflex] Cephalosporins Allergy Unknown Verified 08/22/18 08:03 erythromycin base Allergy Unknown Verified 08/22/18 08:03 famciclovir Allergy Rash/Hives Verified 08/22/18 08:03 meropenem [From Merrem] Allergy Anaphylaxis Verified 08/22/18 08:03 nitrofurantoin Allergy Unknown Verified 08/22/18 08:03 [From Macrobid] nitrofurantoin Allergy Unknown Verified 08/22/18 08:03 macrocrystalline [From Macrobid] sulbactam [From Unasyn] Allergy Dyspnea Verified 08/22/18 08:03 sulfamethoxazole Allergy Unknown Verified 08/22/18 08:03 [From Bactrim] trimethoprim [From Bactrim] Allergy Unknown Verified 08/22/18 08:03 Physical Exam Vitals: Vital Signs Temp Pulse Pulse Pulse Resp BP Pulse Ox 11/03/20 08:53 86 11/03/20 08:42 88 11/03/20 08:41 88 11/03/20 08:30 88 11/03/20 07:00 97.7 F 73 18 172/69 96 11/03/20 02:00 18 11/03/20 00:35 98.4 F 84 18 145/74 96 11/02/20 20:00 98 18 11/02/20 19:54 97 11/02/20 19:44 94 11/02/20 19:31 94 11/02/20 18:51 98.3 F 98 18 148/64 97 11/02/20 16:25 90 11/02/20 16:14 92 11/02/20 14:40 98.0 F 97 16 169/73 93 L 11/02/20 12:35 98.0 F 91 17 119/71 97 11/02/20 11:36 93 11/02/20 11:25 89 Intake and Output 11/02/20 11/03/20 11/03/20 22:59 06:59 14:59 Output Total 650 800 Balance -650 -800 Output: Urine 650 800 Other: Voiding Method Indwelling Catheter Indwelling Catheter Results CBC & Chem 7: 11/01/20 16:51 11/01/20 16:51 Labs: Abnormal Lab Results - Last 24 Hours (Table) 11/02/20 11/02/20 11/02/20 Range/Units 15:00 17:07 20:34 POC Glucose (mg/dL) 319 H 252 H 184 H (75-99) mg/dL 11/03/20 Range/Units 07:17 POC Glucose (mg/dL) 135 H (75-99) mg/dL Microbiology - Last 24 Hours (Table) 11/02/20 01:15 Urine Culture - Preliminary Urine,Voided Assessment and Plan (1) Paraplegia Current Visit: Yes Status: Acute Code(s): G82.20 - PARAPLEGIA, UNSPECIFIED SNOMED Code(s): 48698611 (2) Excoriation of right lower leg Current Visit: Yes Status: Acute Code(s): S80.811A - ABRASION, RIGHT LOWER LEG, INITIAL ENCOUNTER SNOMED Code(s): 784107490 (3) Excoriation of left lower leg Current Visit: Yes Status: Acute Code(s): S80.812A - ABRASION, LEFT LOWER LEG, INITIAL ENCOUNTER SNOMED Code(s): 665663619
[2020-11-03 11:54] LABS: Glucose,Whole Blood 246 mg/dL (75-99)
[2020-11-03] MEDS: HYDROPHILIC CREAM 180 GM TUBE TOPICAL SCH (13:05)
[2020-11-03 17:15] LABS: Glucose,Whole Blood 238 mg/dL (75-99)
--- NOTE | 2020-11-03 17:55 | P.PN ---
Progress Note - Text Progress Note Date: 11/03/20 Presenting complaint: Shortness of breath Interval history: Patient admitted with acute asthma exacerbation. She follows with visiting physicians Dr. Andrade. Chronic stable medical conditions include diabetes mellitus type 2, fibromyalgia, hyperlipidemia, hypertension, osteomyelitis, obesity, bilateral paraplegia from a spinal injury 2006, urinary stress incontinence, obstructive sleep apnea uses a BiPAP. At her baseline since on a chair. Lives with her daughter. Admitted with acute exacerbation of moderate persistent asthma. DuoNeb, inhaled corticosteroids, long-acting beta agonist added. November 02: Sitting upon a bit. Some shortness of breath. Some wheezing. Oral intake is fair. No fever no chills. Decreased appetite. November 03: Breathing a bit better. Lower extremity swelling. Arnulfo wrap ordered. Oral intake better. Prescribed incentive spirometry. Discussed with the pat ient and son at the bedside. Review of systems: Was done for constitutional, cardiovascular, GI, pulmonary. relevant finding as above Active Medications Acetaminophen (Acetaminophen Tab 325 Mg Tab) 650 mg PO Q6HR PRN PRN Reason: Mild Pain or Fever > 100.5 Albuterol/Ipratropium (Ipratropium-Albuterol 3 Ml Neb) 3 ml INHALATION RT-Q2H PRN PRN Reason: Shortness Of Breath Or Wheezing Last Admin: 11/02/20 11:24 Dose: 3 ml Documented by: Albuterol/Ipratropium (Ipratropium-Albuterol 3 Ml Neb) 3 ml INHALATION RT-QID [facility] Last Admin: 11/03/20 16:11 Dose: 3 ml Documented by: Allopurinol (Allopurinol 100 Mg Tab) 100 mg PO BID [facility] Last Admin: 11/03/20 08:56 Dose: 100 mg Documented by: Ascorbic Acid (Ascorbic Acid 500 Mg Tab) 500 mg PO BID [facility] Last Admin: 11/03/20 08:56 Dose: 500 mg Documented by: Aspirin (Aspirin 81 Mg) 81 mg PO [facility] Last Admin: 11/02/20 21:59 Dose: 81 mg Documented by: Baclofen (Baclofen 10 Mg Tab) 10 mg PO BID [facility] Last Admin: 11/03/20 08:56 Dose: 10 mg Documented by: Budesonide (Budesonide 1 Mg/2 Ml Nebu) 1 mg INHALATION RT-BID [facility] Last Admin: 11/03/20 08:30 Dose: 1 mg Documented by: Cholecalciferol (Cholecalciferol 25 Mcg (1000 Iu) Tablet) 100 mcg PO DAILY [facility] Last Admin: 11/03/20 08:56 Dose: 100 mcg Documented by: Citalopram Hydrobromide (Citalopram Hydrobromide 20 Mg Tab) 20 mg PO DAILY [facility] Last Admin: 11/03/20 08:56 Dose: 20 mg Documented by: Formoterol Fumarate (Formoterol Fumarate 20 Mcg/2 Ml Nebu) 20 mcg INHALATION RT-BID [facility] Last Admin: 11/03/20 08:30 Dose: 20 mcg Documented by: Furosemide (Furosemide 40 Mg Tab) 80 mg PO DAILY [facility] Last Admin: 11/03/20 08:56 Dose: 80 mg Documented by: Furosemide (Furosemide 40 Mg Tab) 40 mg PO HS PRN PRN Reason: Edema Gabapentin (Gabapentin 100 Mg Cap) 100 mg PO HS [facility] Last Admin: 11/02/20 21:59 Dose: 100 mg Documented by: Heparin Sodium (Porcine) (Heparin Sodium,Porcine/Pf 5,000 Unit/0.5 Ml Syringe) 5,000 unit SQ Q8HR [facility] Last Admin: 11/03/20 15:39 Dose: 5,000 unit Documented by: Hydralazine HCl (Hydralazine Hcl 25 Mg Tab) 25 mg PO TID [facility] Last Admin: 11/03/20 15:39 Dose: 25 mg Documented by: Insulin Aspart (Insulin Aspart (Novolog) 100 Unit/Ml Vial) 0 unit SQ ACHS [facility]; Protocol Last Admin: 11/03/20 12:34 Dose: 8 unit Documented by: Insulin Detemir (Insulin Detemir (Levemir) 100 Unit/Ml Syr) 38 unit SQ DAILY [facility] Last Admin: 11/03/20 09:07 Dose: 38 unit Documented by: Ketorolac Tromethamine (Ketorolac 15 Mg/Ml 1 Ml Vial) 15 mg IVP Q6HR PRN PRN Reason: Moderate Pain Stop: 11/04/20 21:59 Loratadine (Loratadine 10 Mg Tab) 10 mg PO DAILY [facility] Last Admin: 11/03/20 08:56 Dose: 10 mg Documented by: Meloxicam (Meloxicam 7.5 Mg Tab) 7.5 mg PO DAILY [facility] Last Admin: 11/03/20 08:55 Dose: 7.5 mg Documented by: Montelukast Sodium (Montelukast 10 Mg Tab) 10 mg PO [facility] Last Admin: 11/02/20 21:59 Dose: 10 mg Documented by: Multi-Ingred Cream/Lotion/Oil/Oint (Hydrophilic Cream 180 Gm Tube) 1 applic TOPICAL DAILY [facility]; Protocol Last Admin: 11/03/20 13:05 Dose: 1 applic Documented by: Multivitamins (Multivitamins, Thera 1 Each Tab) 1 each PO DAILY [facility] Last Admin: 11/03/20 08:56 Dose: 1 each Documented by: Naloxone HCl (Naloxone 0.4 Mg/Ml 1 Ml Vial) 0.2 mg IV Q2M PRN PRN Reason: Opioid Reversal Nitroglycerin (Nitroglycerin Sl Tabs 0.4 Mg Tab) 0.4 mg SUBLINGUAL Q5M PRN PRN Reason: Chest Pain Patient's Own ( Methenamine Hippurate [ Methenamine Hippurate] 1 Gm Tablet) 1 gm PO BID [facility] Last Admin: 11/03/20 09:23 Dose: Not Given Documented by: Pantoprazole Sodium (Pantoprazole 40 Mg Tablet) 40 mg PO [facility] Last Admin: 11/02/20 22:39 Dose: 40 mg Documented by: Pravastatin Sodium (Pravastatin Sodium 20 Mg Tab) 20 mg PO [facility] Last Admin: 11/02/20 21:59 Dose: 20 mg Documented by: Prednisone (Prednisone 50 Mg Tab) 50 mg PO DAILY [facility] Last Admin: 11/03/20 08:55 Dose: 50 mg Documented by: Senna/Docusate Sodium (Sennosides-Docusate Sodium 1 Each Tab) 3 each PO BID [facility] Last Admin: 11/02/20 21:59 Dose: 3 each Documented by: On examination: VITAL SIGNS: 98.4, 91, 18, 175 is 69, 93% on 4 L GENERAL APPEARANCE: BMI 66.1, sitting up in bed, less short of breath HEENT: Normal external appearance of nose and ear. Oral cavity normal EYES: Pupils equal. Conjunctiva normal. NECK: JVD unable to assess. Mass not palpable. RESPIRATORY: Respiratory effort increased. Decreased breath sounds. CARDIOVASCULAR: First and second sounds normal. Edema present ABDOMEN: Soft. Liver and spleen not palpable. No tenderness. No mass palpable. PSYCHIATRY: Alert and oriented x3. Mood and affect normal. INVESTIGATIONS, reviewed in the clinical context: WBC 11.60 globin 9.5 platelets 208 potassium 4.6 BUN 40 creatinine 1.0 Troponin I less than 0.012, proBNP 421 UA positive for leukoesterase, WBC Influenza type A, diabetes, RSV, COVID 19: Not detected EKG tracing personally reviewed by me-sinus rhythm Chest x-ray film: No obvious infiltrate CT abdomen pelvis with contrast: Multilevel moderate spondylitic changes in the lumbar spine. Thoracolumbar 40 deformity with compression fracture of the thoracolumbar junction. Osteopenia. Assessment and plan: -Acute exacerbation of moderate persistent asthma, improving DuoNeb 4 times a day plus when necessary, inhaled corticosteroid, inhaled long- acting beta agonist -Chronic hypoxic respiratory failure from asthma On home oxygen -Diabetes mellitus type 2, chronic on insulin Follow Accu-Cheks -Chronic fibromyalgia Pain medications as needed -Hyperlipidemia Pravachol -Essential hypertension Hydralazine, -Primary osteoarthritis Pain medications as needed -Morbid obesity BMI 66 Weight loss measures -Chronic bilateral polyplegia from spinal injury 2006 -Chronic urinary stress incontinence Dependence -Obstructive sleep apnea Uses BiPAP -Probable bilateral lower extremity venous insufficiency Arnulfo wraps Continue with DuoNeb's, steroids. Incentive spirometry ordered. Discussed. Arnulfo wrap lower extremity.
[2020-11-03] MEDS: GABAPENTIN 100 MG CAP PO SCH (20:39)
[2020-11-03] MEDS: PANTOPRAZOLE 40 MG TABLET PO SCH (20:39)
[2020-11-03] MEDS: PRAVASTATIN SODIUM 20 MG TAB PO SCH (20:40)
[2020-11-03] MEDS: SENNOSIDES-DOCUSATE SODIUM 1 EACH TAB PO SCH (20:40)
[2020-11-03] MEDS: ASPIRIN 81 MG PO SCH (20:40)
[2020-11-03] MEDS: MONTELUKAST 10 MG TAB PO SCH (20:40)
[2020-11-03 21:08] LABS: Glucose,Whole Blood 237 mg/dL (75-99)
[2020-11-04 07:34] LABS: Glucose,Whole Blood 149 mg/dL (75-99)
[2020-11-04 08:07] VITALS: RESP 18
[2020-11-04] MEDS: INSULIN ASPART (NovoLOG) 100 UNIT/ML VIAL SQ SCH ×3 (08:21→18:27)
[2020-11-04] MEDS: MELOXICAM 7.5 MG TAB PO SCH (08:22)
[2020-11-04] MEDS: hydrALAZINE HCL 25 MG TAB PO SCH ×2 (08:23→17:57)
[2020-11-04] MEDS: SENNOSIDES-DOCUSATE SODIUM 1 EACH TAB PO SCH (08:23)
[2020-11-04] MEDS: CHOLECALCIFEROL 25 MCG (1000 IU) TABLET PO SCH (08:23)
[2020-11-04] MEDS: predniSONE 50 MG TAB PO SCH (08:24)
[2020-11-04] MEDS: CITALOPRAM HYDROBROMIDE 20 MG TAB PO SCH (08:24)
[2020-11-04] MEDS: allopurinoL 100 MG TAB PO SCH (08:24)
[2020-11-04] MEDS: BACLOFEN 10 MG TAB PO SCH (08:24)
[2020-11-04] MEDS: FUROSEMIDE 40 MG TAB PO SCH (08:24)
[2020-11-04] MEDS: ASCORBIC ACID 500 MG TAB PO SCH (08:24)
[2020-11-04] MEDS: MULTIVITAMINS, THERA 1 EACH TAB PO SCH (08:24)
[2020-11-04] MEDS: LORATADINE 10 MG TAB PO SCH (08:24)
[2020-11-04] MEDS: HEPARIN SODIUM,PORCINE/PF 5,000 UNIT/0.5 ML SYRINGE SQ SCH ×2 (08:24→17:41)
[2020-11-04] MEDS: HYDROPHILIC CREAM 180 GM TUBE TOPICAL SCH (08:27)
[2020-11-04] MEDS: METHENAMINE HIPPURATE 1 GM PO SCH (08:33)
[2020-11-04] MEDS: FORMOTEROL FUMARATE 20 MCG/2 ML NEBU INHALATION SCH (08:38)
[2020-11-04] MEDS: IPRATROPIUM-ALBUTEROL 3 ML NEB INHALATION SCH ×3 (08:38→15:58)
[2020-11-04] MEDS: BUDESONIDE 1 MG/2 ML NEBU INHALATION SCH (08:38)
[2020-11-04 11:43] LABS: Glucose,Whole Blood 215 mg/dL (75-99)
[2020-11-04] MEDS ORDERED: LACTULOSE 20 GM/30 ML CUP PO ONE (12:30)
--- NOTE | 2020-11-04 12:50 | P.PN ---
Subjective Progress Note Date: 11/04/20 Principal diagnosis: Asthma exacerbation. Pulmonary consult dated 11/03/2020. 70-year-old female with a history of asthma/COPD, with chronic hypoxemic respiratory failure, and home O2 at 3 L, as well as diabetes, obesity, fibromyalgia, GERD, hypertension, and sleep apnea. The patient states for last couple of weeks and may be a bit longer, her asthma has been acting up. The patient has received 2 Medrol Dosepaks, which seemed to help in the short-term, but are not long lasting. She denies any fever or chills. She's not coughing up any phlegm. She is using her regular medication and not skipping doses. She is on a nebulizer machine with albuterol sulfate and ipratropium bromide, Singulair 10 mg at bedtime, and Symbicort 160/4.5, 2 puffs twice a day. She denies any chest pain or chest discomfort. She denies any hemoptysis. There is no nausea or vomiting. She denies any abdominal pain. Lab data includes a white count 11.6, hemoglobin 9.5, hematocrit 30.4, and platelet count that 208,000. Sodium 141, potassium 4.6, chlorides 103, CO2 32, anion gap 6, BUN 40, and creatinine 1. Urine is suggestive of a urinary tract infection. Chest x- ray shows no acute disease. Progress note dated 11/04/2020. 70-year-old female that was seen yesterday in consultation for an asthma exacerbation. From the pulmonary standpoint, the patient's doing much better. Much less short of breath. She's currently on oxygen liters. That's her home dose. The patient does admit to feeling constipated, and having some abdominal discomfort and distention. Other than that, she has no new complaints. Her chest x-ray on admission showed no acute disease. No new laboratory data to report. Objective - Vital Signs Vital signs: Vital Signs Temp 97.9 F 11/04/20 07:00 Pulse 81 11/04/20 12:22 Resp 18 11/04/20 08:00 BP 175/73 11/04/20 07:00 Pulse Ox 96 11/04/20 07:00 Intake & Output 11/03/20 11/04/20 11/04/20 18:59 06:59 18:59 Output Total 1900 600 Balance -1900 -600 Output: Urine 1900 600 Other: Voiding Method Indwelling Catheter Indwelling Catheter Indwelling Catheter - Exam No acute distress, oriented 3. No audible wheezing, conversational dyspnea, or use of accessory muscles. Currently on nasal O2. HEENT examination is grossly unremarkable. Neck supple. Full range of motion. No adenopathy thyromegaly or neck vein distention. Cardiovascular examination reveals regular rhythm rate. S1-S2 normal. No S3 or S4. No discernible murmur noted. Heart sounds are distant. Heart rate 81 bpm. Lungs reveal mild to moderate scattered rhonchi and wheezes. Slight prolongation on forced maneuver. There are no crackles. Saturations 96% on 4 L nasal cannula. Abdomen is mildly distended. Bowel sounds are noted. Mild tenderness on palpation diffusely. Extremities are intact. No cyanosis clubbing or edema. Skin is without rash or lesion. Neurologic examination is brief but nonfocal. - Labs CBC & Chem 7: 11/01/20 16:51 11/01/20 16:51 Labs: Abnormal Lab Results - Last 24 Hours (Table) 11/03/20 11/03/20 11/04/20 Range/Units 17:13 21:06 07:32 POC Glucose (mg/dL) 238 H 237 H 149 H (75-99) mg/dL 11/04/20 Range/Units 11:42 POC Glucose (mg/dL) 215 H (75-99) mg/dL Microbiology - Last 24 Hours (Table) 11/02/20 01:15 Urine Culture - Final Urine,Voided Assessment and Plan Assessment: Acute exacerbation of chronic bronchial asthma. Rule out acute cystitis. History of diabetes mellitus. Morbid obesity. History of fibromyalgia. Gastroesophageal reflux disease. Hyperlipidemia. Hypertension. Osteoarthritis. History of sleep apnea syndrome, maintained on CPAP. Prior history of urinary tract infections with extended spectrum beta lactamase producing organisms. Plan: Plan dated 11/03/2020. The patient will be treated in standard fashion. She'll get Solu-Medrol, updrafts, and her usual asthma medications. In addition, I told her that when s he is discharged, we likely will send her home on a small dose of daily prednisone indefinitely. This may prevent these asthma flareups. She'll follow with me in the office. No additional recommendations are made. She appears not to have an infection. Probably will not benefit from antibiotics at this time. Plan dated 11/04/2020. Currently, from the pulmonary standpoint, the patient's doing very well. She states that her breathing has improved. Her only complaint today was the fact that she was constipated, is having abdominal distention with some abdominal tenderness on palpation. Other than that, she is doing very well. Time with Patient: Less than 30
[2020-11-04 15:25] VITALS: BP 197/74; TEMP 97.4
[2020-11-04 16:06] VITALS: PULSE 73
[2020-11-04 17:40] LABS: Glucose,Whole Blood 271 mg/dL (75-99)
--- NOTE | 2020-11-04 18:37 | P.DS ---
Providers Date of admission: 11/01/20 22:00 Expected date of discharge: 11/04/20 Attending physician: Dony Rodriguez Consults: 11/02/20 11:55 Consult Physician Routine Consulting Provider: Abid Perkins Consult Reason/Comments: asthma Do you want consulting provider notified?: Yes Primary care physician: Raymond Andrade [facility] Course: Presenting complaint: Shortness of breath Interval history: Patient admitted with acute asthma exacerbation. She follows with visiting physicians Dr. Andrade. Chronic stable medical conditions include diabetes mellitus type 2, fibromyalgia, hyperlipidemia, hypertension, osteomyelitis, obesity, bilateral paraplegia from a spinal injury 2006, urinary stress incontinence, obstructive sleep apnea uses a BiPAP. At her baseline since on a chair. Lives with her daughter. Admitted with acute exacerbation of moderate persistent asthma. DuoNeb, inhaled corticosteroids, long-acting beta agonist added. November 02: Sitting upon a bit. Some shortness of breath. Some wheezing. Oral intake is fair. No fever no chills. Decreased appetite. November 03: Breathing a bit better. Lower extremity swelling. Arnulfo wrap ordered. Oral intake better. Prescribed incentive spirometry. Discussed with the patient and son at the bedside. November 04: Breathing improved. Constipated. No bowel for 5 days. Given lactulose 20 g. Subsequently enema was given. Patient had good bowel results. Metamucil added. Food restriction was discussed with the patient. To go home on 1500 mL. Patient use incentive spirometry. Discussion and discharge planning more than 35 minutes Consultation: Dr. Perkins from pulmonary On examination: GENERAL APPEARANCE: sitting up in bed, awake HEENT: Normal external appearance of nose and ear. Oral cavity normal EYES: Pupils equal. Conjunctiva normal. NECK: JVD unable to assess. Mass not palpable. RESPIRATORY: Respiratory effort increased. Decreased breath sounds. CARDIOVASCULAR: First and second sounds normal. Edema present ABDOMEN: Soft. Liver and spleen not palpable. No tenderness. No mass palpable. PSYCHIATRY: Alert and oriented x3. Mood and affect normal. INVESTIGATIONS, reviewed in the clinical context: WBC 11.60 globin 9.5 platelets 208 potassium 4.6 BUN 40 creatinine 1.0 Troponin I less than 0.012, proBNP 421 UA positive for leukoesterase, WBC Influenza type A, diabetes, RSV, COVID 19: Not detected EKG tracing personally reviewed by ct-sinus rhythm Chest x-ray film: No obvious infiltrate CT abdomen pelvis with contrast: Multilevel moderate spondylitic changes in the lumbar spine. Thoracolumbar 40 deformity with compression fracture of the thoracolumbar junction. Osteopenia. Assessment and plan: -Acute exacerbation of moderate persistent asthma, better DuoNeb 4 times a day plus when necessary, inhaled corticosteroid, inhaled long- acting beta agonist -Chronic hypoxic respiratory failure from asthma On home oxygen -Diabetes mellitus type 2, chronic on insulin Follow Accu-Cheks -Chronic fibromyalgia Pain medications as needed -Hyperlipidemia Pravachol -Essential hypertension Hydralazine, -Primary osteoarthritis Pain medications as needed -Morbid obesity BMI 66 Weight loss measures -Chronic bilateral polyplegia from spinal injury 2006 -Chronic urinary stress incontinence Dependence -Obstructive sleep apnea Uses BiPAP -Probable bilateral lower extremity venous insufficiency Arnulfo wraps Disposition: Home Patient Condition at Discharge: Fair Plan - Discharge Summary Discharge Rx Participant: Yes New Discharge Prescriptions: New predniSONE 10 mg PO DAILY #30 tab Psyllium Husk 100% [Metamucil Packet] 6 gm PO DAILY #30 packet Continue Baclofen [Lioresal] 10 mg PO BID Montelukast Sodium [Singulair] 10 mg PO HS Aspirin 81 mg PO HS Ascorbic Acid [Vitamin C] 500 mg PO BID Omeprazole [PriLOSEC] 20 mg PO HS Pravastatin Sodium [Pravachol] 20 mg PO HS Ipratropium-Albuterol Nebulize [Duoneb 0.5 mg-3 mg/3 ml Soln] 3 ml INHALATION RT-QID PRN PRN Reason: Shortness Of Breath Celecoxib [CeleBREX] 200 mg PO DAILY Cetirizine HCl [Zyrtec] 10 mg PO DAILY Cholecalciferol (Vitamin D3) [Vitamin D3] 4,000 unit PO DAILY Insulin Glargine [Lantus] 38 unit SQ HS metFORMIN HCL [Glucophage] 500 mg PO BID Multivitamins, Thera [Multivitamin (formulary)] 1 tab PO DAILY Elderberry Fruit and Flower [Black Elderberry 575 mg Cap] 1 cap PO DAILY Acetaminophen Tab [Tylenol] 325 mg PO Q6H PRN PRN Reason: Pain allopurinoL [Zyloprim] 100 mg PO BID hydrALAZINE HCL [Apresoline] 25 mg PO TID Citalopram Hydrobromide [CeleXA] 20 mg PO DAILY Budesonide/Formoterol Fumarate [Symbicort 160-4.5 Mcg Inhaler] 2 puff INHALATION RT-BID PRN PRN Reason: Shortness Of Breath Nitroglycerin Sl Tabs [Nitrostat] 0.4 mg SUBLINGUAL Q5M PRN PRN Reason: Chest Pain Insulin Aspart [NovoLOG Flexpen] See Protocol SQ AC-TID PRN PRN Reason: HIGH BLOOD SUGAR Zinc 50 mg PO DAILY Sennosides-Docusate Sodium [Senokot-S] 3 tab PO BID Cranberry Fruit Concentrate [Azo Cranberry] 1,000 mg PO DAILY Slow Release Iron 45mg 45 mg PO BID Gabapentin [Neurontin] 100 mg PO HS Methenamine Hippurate 1 gm PO BID Budesonide [Pulmicort] 1 mg INHALATION RT-Q6H PRN PRN Reason: Shortness Of Breath Changed Furosemide [Lasix] 40 mg PO BID #0 Discontinued Furosemide [Lasix] 40 mg PO HS PRN PRN Reason: Edema Amoxicillin/Potassium Clav [Augmentin 875-125 Tablet] 1 tab PO Q12HR Discharge Medication List Ascorbic Acid [Vitamin C] 500 mg PO BID 10/22/13 [History] Aspirin 81 mg PO HS 10/22/13 [History] Baclofen [Lioresal] 10 mg PO BID 10/22/13 [History] Montelukast Sodium [Singulair] 10 mg PO HS 10/22/13 [History] Omeprazole [PriLOSEC] 20 mg PO HS 05/16/17 [History] Ipratropium-Albuterol Nebulize [Duoneb 0.5 mg-3 mg/3 ml Soln] 3 ml INHALATION RT-QID PRN 04/10/18 [History] Pravastatin Sodium [Pravachol] 20 mg PO HS 04/10/18 [History] Celecoxib [CeleBREX] 200 mg PO DAILY 08/22/18 [History] Cetirizine HCl [Zyrtec] 10 mg PO DAILY 08/22/18 [History] Cholecalciferol (Vitamin D3) [Vitamin D3] 4,000 unit PO DAILY 08/22/18 [History] Insulin Glargine [Lantus] 38 unit SQ HS 08/22/18 [History] metFORMIN HCL [Glucophage] 500 mg PO BID 08/22/18 [History] Acetaminophen Tab [Tylenol] 325 mg PO Q6H PRN 11/01/20 [History] Budesonide [Pulmicort] 1 mg INHALATION RT-Q6H PRN 11/01/20 [History] Budesonide/Formoterol Fumarate [Symbicort 160-4.5 Mcg Inhaler] 2 puff INHALATION RT-BID PRN 11/01/20 [History] Citalopram Hydrobromide [CeleXA] 20 mg PO DAILY 11/01/20 [History] Cranberry Fruit Concentrate [Azo Cranberry] 1,000 mg PO DAILY 11/01/20 [History] Elderberry Fruit and Flower [Black Elderberry 575 mg Cap] 1 cap PO DAILY 11/01/20 [History] Gabapentin [Neurontin] 100 mg PO HS 11/01/20 [History] Insulin Aspart [NovoLOG Flexpen] See Protocol SQ AC-TID PRN 11/01/20 [History] Methenamine Hippurate 1 gm PO BID 11/01/20 [History] Multivitamins, Thera [Multivitamin (formulary)] 1 tab PO DAILY 11/01/20 [History] Nitroglycerin Sl Tabs [Nitrostat] 0.4 mg SUBLINGUAL Q5M PRN 11/01/20 [History] Sennosides-Docusate Sodium [Senokot-S] 3 tab PO BID 11/01/20 [History] Slow Release Iron 45mg 45 mg PO BID 11/01/20 [History] Zinc 50 mg PO DAILY 11/01/20 [History] allopurinoL [Zyloprim] 100 mg PO BID 11/01/20 [History] hydrALAZINE HCL [Apresoline] 25 mg PO TID 11/01/20 [History] Furosemide [Lasix] 40 mg PO BID #0 11/04/20 [Rx] Psyllium Husk 100% [Metamucil Packet] 6 gm PO DAILY #30 packet 11/04/20 [Rx] predniSONE 10 mg PO DAILY #30 tab 11/04/20 [Rx] Follow up Appointment(s)/Referral(s): Abdi Perkins DO [Doctor of Osteopathic Medicine] - 10 Days Raymond Andrade MD [Primary Care Provider] - 1-2 days Patient Instructions/Handouts: Asthma (DC) Activity/Diet/Wound Care/Special Instructions: fluid restriction 1500 mls day
[2020-11-04] MEDS ORDERED: INSULIN DETEMIR (LEVEMIR) 100 UNIT/ML SYR SQ SCH (21:00)
== END 2020-11-04 18:50 ==
LOC: EC 16:25 → 6NMEDSUR 22:00
PROVIDERS: ADMIT Hospitalist; ATTEND Hospitalist
DX: J45.41 Moderate persistent asthma with (acute) exacerbation (principal); J96.11 Chronic respiratory failure with hypoxia; J44.1 Chronic obstructive pulmonary disease with (acute) exacerbation; T83.031A Leakage of indwelling urethral catheter, initial encounter; L89.309 Pressure ulcer of unspecified buttock, unspecified stage; N39.3 Stress incontinence (female) (male); N39.0 Urinary tract infection, site not specified; I11.9 Hypertensive heart disease without heart failure; E11.9 Type 2 diabetes mellitus without complications; E66.01 Morbid (severe) obesity due to excess calories; E78.5 Hyperlipidemia, unspecified; G47.33 Obstructive sleep apnea (adult) (pediatric); M79.7 Fibromyalgia; G82.20 Paraplegia, unspecified; K59.00 Constipation, unspecified; M19.91 Primary osteoarthritis, unspecified site; D64.9 Anemia, unspecified; M85.80 Other specified disorders of bone density and structure, unspecified site; F32.9 Major depressive disorder, single episode, unspecified; G89.29 Other chronic pain; M54.9 Dorsalgia, unspecified; R22.43 Localized swelling, mass and lump, lower limb, bilateral; K21.9 Gastro-esophageal reflux disease without esophagitis; Z68.44 Body mass index [BMI] 60.0-69.9, adult; S80.812A Abrasion, left lower leg, initial encounter; S80.811A Abrasion, right lower leg, initial encounter; Z20.822 Contact with and (suspected) exposure to COVID-19; Z79.82 Long term (current) use of aspirin; Z79.899 Other long term (current) drug therapy; Z79.1 Long term (current) use of non-steroidal anti-inflammatories (NSAID); Z79.4 Long term (current) use of insulin; Z79.51 Long term (current) use of inhaled steroids; Z88.1 Allergy status to other antibiotic agents; Z88.3 Allergy status to other anti-infective agents; Z88.0 Allergy status to penicillin; Z88.2 Allergy status to sulfonamides; Z16.12 Extended spectrum beta lactamase (ESBL) resistance; Z96.0 Presence of urogenital implants; Z86.19 Personal history of other infectious and parasitic diseases; Z87.39 Personal history of other diseases of the musculoskeletal system and connective tissue; Z87.01 Personal history of pneumonia (recurrent); Z87.440 Personal history of urinary (tract) infections; Z96.653 Presence of artificial knee joint, bilateral; Z87.828 Personal history of other (healed) physical injury and trauma; Z98.42 Cataract extraction status, left eye; Z98.41 Cataract extraction status, right eye; Z98.1 Arthrodesis status; Z87.81 Personal history of (healed) traumatic fracture; Z98.890 Other specified postprocedural states; Z80.1 Family history of malignant neoplasm of trachea, bronchus and lung; Z84.89 Family history of other specified conditions
CPT/HCPCS: 96372 ×4; 96365; 96366; 96375; 99285; 51702; 36415; 94660; 94640 ×8; 93005; 83880; 80053; 83690; 83735; 84484; 85025; 85610; 85730; 81001 ×2; 87086; 87636; 71046; 74177; G0378 ×4; J2920; J3475; J7512 ×3; Q9967; J1644 ×3